=== PATIENT | female | born 1935 | race Caucasian/White ===

== ENCOUNTER → 2016-08-12 | Outpatient (CLI) | payer MEDICARE ==
[~2016-08-12] MED LIST: ACHD5005 PO; ALEN70TA47 PO; APIX5TAB PO; ASCO10006 PO; ATEN25TA PO; CHOL10007 PO; CYAN50008 PO; DICL100G18 TP; DILT240C90 PO; ENAL10TA PO; FENO145T2 PO; FLUT16SP22 NSEACH; FOLI0.4T2 PO; GLUC-116 PO; HCT25T PO; LEVO100T PO; LEVO200T30 PO; LVT.025T PO; LYSI500T37 PO; MAGN400T6 PO; METO-274 PO; METO5TAB79 PO; METR500T PO; METR500T21 PO; NF-ESOM40C PO; OMEP40CA36 PO; OXYC-12 PO; PEG250PW PO; PERP1TAB3 PO; RNT150T PO; SCR1T1 PO; SIMV20TA3 PO; SIMV40TA4 PO; VANQUISH PO; VITA400C21 PO; fluticasone PO
--- NOTE | 2016-08-12 15:35 | Diagnostic Imaging Report ---
EXAMINATION: Three views of the lumbar spine. INDICATION: Low back pain. FINDINGS: There is an old compression fracture of L1 vertebral body, status post kyphoplasty changes. No new compression fracture is seen. There is minimal anterior translation of L5 over S1 and minimal posterior translation of L2/3 and L3/4 levels. Multiple anterior osteophytes are seen with no significant posterior osteophytes noted. Sclerotic changes around the facet joints of L5/S1 are likely degenerative. There are degenerative changes also at the SI joints, more prominent on the left side. There is significant disc height loss at multiple levels in the lumbar spine with vacuum phenomenon seen. Surgical clips in the upper right abdomen seen. IMPRESSION: Advanced degenerative changes. Dictated by: Dictated on workstation # [id number]
== END ==
LOC: RAD 14:23
PROVIDERS: ATTEND Nurse Practitioner Family
DX: M47.816 Spondylosis without myelopathy or radiculopathy, lumbar region (principal)
CPT/HCPCS: 72100

== ENCOUNTER 2016-08-15 14:25 | Observation (INO) | payer MEDICARE ==
[~2016-08-15] VITALS: Ht 162.6 cm; Wt 74.1 kg
[~2016-08-15 14:25] MED LIST changes: -ALEN70TA47 PO; -APIX5TAB PO; -ASCO10006 PO; -CHOL10007 PO; -CYAN50008 PO; -DICL100G18 TP; -DILT240C90 PO; -ENAL10TA PO; -FLUT16SP22 NSEACH; -FOLI0.4T2 PO; -GLUC-116 PO; -LEVO100T PO; -LYSI500T37 PO; -METO-274 PO; -METR500T PO; -METR500T21 PO; -OMEP40CA36 PO; -VITA400C21 PO
[2016-08-15] MEDS ORDERED: ALEN70TA47 PO (14:43)
[2016-08-15] MEDS ORDERED: SIMV20TA3 PO (14:43)
[2016-08-15 14:45] LABS: BASOPHILS % (AUTO) 0 % (0-10); EOSINOPHILS % (AUTO) 1 % (0-10); LYMPHOCYTES # (AUTO) 1.5 X 10^3 (1.0-4.0); LYMPHOCYTES % (AUTO) 20 % (12-44); MEAN CORPUSCULAR HEMOGLOBIN 30 PG (25-34); MEAN CORPUSCULAR HGB CONC 35 G/DL (32-36); MEAN CORPUSCULAR VOLUME 88 FL (80-99); MEAN PLATELET VOLUME 9.4 FL (7.4-10.4); MONOCYTES # (AUTO) 0.9 X 10^3 (0.0-1.0); MONOCYTES % (AUTO) 12 % (0-12); NEUTROPHILS # (AUTO) 5.3 X 10^3 (1.8-7.8); NEUTROPHILS % (AUTO) 68 % (42-75); PLATELET COUNT 318 10^3/uL (130-400); RED BLOOD COUNT 4.28 10^6/uL (4.35-5.85); RED CELL DISTRIBUTION WIDTH 14.2 % (10.0-14.5); WHITE BLOOD COUNT 7.8 10^3/uL (4.3-11.0)
--- NOTE | 2016-08-15 14:47 | ED GU-Female ---
General Chief Complaint: Abdominal/GI Problems Stated Complaint: BACK PAIN,ABD PAIN,VOMITING Nursing Triage Note: mid/lower left flank pain x1 week, lower abdominal pain since tuesday. Nursing Sepsis Screen: No Definite Risk Source: patient Exam Limitations: no limitations History of Present Illness Time seen by provider: 14:46 Initial Comments To ER with left flank pain for one week. Starting 2 days ago the pain began to radiate to the left lower quadrant of her abdomen and was associated with nausea , vomiting, urinary frequency and only voiding a small amount. She has chills but no measured fevers. No history of this. Timing/Duration: week, getting worse Severity/Quality: moderate Location: left flank Radiation: none Activities at Onset: none Prior Genitourinary Problems: none Associated Symptoms: dysuria Allergies and Home Medications Allergies Coded Allergies: Sulfa(Sulfonamide Antibiotics) (Verified Adverse Reaction, Mild, 04/14/11) gi symptoms Home Medications Alendronate Sodium 70 Mg Tablet, 1 TAB PO UD, #12 (Reported) Atenolol 25 Mg Tablet, 25 MG PO DAILY, (Reported) Esomeprazole Mag Trihydrate 40 Mg Capsule.dr, 40 MG PO DAILY, (Reported) Hydrochlorothiazide 25 Mg Tablet, 25 MG PO DAILY, (Reported) Levothyroxine Sodium 200 Mcg Tablet, 1 EACH PO DAILY, (Reported) Metoclopramide Hcl 5 Mg Tab, 1 EACH PO AC, (Reported) Perphenazine/Amitriptyline Hcl 1 Each Tablet, 2 EACH PO, (Reported) Polyethylene Glycol 1 Ea Pack, 1 EA PO DAILY, (Reported) Simvastatin 20 Mg Tablet, 1 TAB PO UD, #90 (Reported) Sucralfate 1 Gm Tab, 1 GM PO AC, (Reported) [fluticasone] , 50 MCG PO DAILY, (Reported) Constitutional: see HPI EENTM: see HPI Respiratory: no symptoms reported Cardiovascular: no symptoms reported Genitourinary: see HPI, flank pain Musculoskeletal: no symptoms reported Skin: no symptoms reported Psychiatric/Neurological: No Symptoms Reported Endocrine: No Symptoms Reported Past Cztpobl-Milpyo-Jszluo Hx Patient Social History Alcohol Use: Denies Use Recreational Drug Use: No Smoking Status: Never a Smoker 2nd Hand Smoke Exposure: No Recent Foreign Travel: No Contact w/Someone Who Travel: No Recent Infectious Disease Expo: No Recent Hopitalizations: Yes Immunizations Up To Date Date of Pneumonia Vaccine: Feb 07, 2005 Date of Influenza Vaccine: Feb 21, 2011 Seasonal Allergies Seasonal Allergies: No Surgeries HX Surgeries: Yes Surgeries: Gallbladder, Hysterectomy Respiratory Hx Respiratory Disorders: No Cardiovascular Hx Cardiac Disorders: Yes Cardiac Disorders: High Cholesterol, Hypertension Neurological Hx Neurological Disorders: No Reproductive System : No Hx Reproductive Disorders: No 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, 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 Genitourinary Hx Genitourinary Disorders: No Genitourinary Disorders: UTI-Chronic Gastrointestinal Hx Gastrointestinal Disorders: Yes Gastrointestinal Disorders: Gastroesophageal Reflux Musculoskeletal Hx Musculoskeletal Disorders: Yes (KYPOPLASTY NOVEMBER 2011 L1) Musculoskeletal Disorders: Arthritis Endocrine Hx Endocrine Disorders: Yes Endocrine Disorders: Hypothyroidsim HEENT HX ENT Disorders: No Cancer Hx Cancer: No Psychosocial Hx Psychiatric Problems: No Integumentary HX Skin/Integumentary Disorder: No Blood Transfusions Hx Blood Disorders: No Physical Exam Vital Signs Vital Sign - Last 12Hours 08/15/16 14:34 Temp 97.9 Pulse 64 Resp 16 B/P (MAP) 172/83 Pulse Ox 98 O2 Delivery Room Air Capillary Refill : Less Than 3 Seconds General Appearance: WD/WN, no apparent distress HEENT: PERRL/EOMI, normal ENT inspection Neck: non-tender, full range of motion Respiratory: no respiratory distress, no accessory muscle use Gastrointestinal: normal bowel sounds, soft, tenderness (left lower quadrant) Extremities: normal range of motion, non-tender Neurologic/Psychiatric: alert, normal mood/affect, oriented x 3 Skin: normal color, warm/dry Progress/Results/Core Measures Results/Orders Lab Results Laboratory Tests Test 08/15/16 14:30 08/15/16 15:05 Range/Units White Blood Count 7.8 4.3-11.0 10^3/uL Red Blood Count 4.28 L 4.35-5.85 10^6/uL Hemoglobin 13.0 11.5-16.0 G/DL Hematocrit 38 35-52 % Mean Corpuscular Volume 88 80-99 FL Mean Corpuscular Hemoglobin 30 25-34 PG Mean Corpuscular Hemoglobin Concent 35 32-36 G/DL Red Cell Distribution Width 14.2 10.0-14.5 % Platelet Count 318 130-400 10^3/uL Mean Platelet Volume 9.4 7.4-10.4 FL Neutrophils (%) (Auto) 68 42-75 % Lymphocytes (%) (Auto) 20 12-44 % Monocytes (%) (Auto) 12 0-12 % Eosinophils (%) (Auto) 1 0-10 % Basophils (%) (Auto) 0 0-10 % Neutrophils # (Auto) 5.3 1.8-7.8 X 10^3 Lymphocytes # (Auto) 1.5 1.0-4.0 X 10^3 Monocytes # (Auto) 0.9 0.0-1.0 X 10^3 Eosinophils # (Auto) 0.0 0.0-0.3 10^3/uL Basophils # (Auto) 0.0 0.0-0.1 10^3/uL Sodium Level 125 *L 135-145 MMOL/L Potassium Level 4.0 3.6-5.0 MMOL/L Chloride Level 92 L 98-107 MMOL/L Carbon Dioxide Level 21 21-32 MMOL/L Anion Gap 12 5-14 MMOL/L Blood Urea Nitrogen 20 H 7-18 MG/DL Creatinine 0.96 0.60-1.30 MG/DL Estimat Glomerular Filtration Rate 56 BUN/Creatinine Ratio 21 Glucose Level 117 H 70-105 MG/DL Calcium Level 9.3 8.5-10.1 MG/DL Total Bilirubin 0.4 0.1-1.0 MG/DL Aspartate Amino Transf (AST/SGOT) 20 5-34 U/L Alanine Aminotransferase (ALT/SGPT) 10 0-55 U/L Alkaline Phosphatase 33 L 40-136 U/L Total Protein 7.0 6.4-8.2 G/DL Albumin 3.7 3.2-4.5 G/DL Urine Color YELLOW Urine Clarity CLEAR Urine pH 6 5-9 Urine Specific [place] 1.015 L 1.016-1.022 Urine Protein NEGATIVE NEGATIVE Urine Glucose (UA) NEGATIVE NEGATIVE Urine Ketones NEGATIVE NEGATIVE Urine Nitrite NEGATIVE NEGATIVE Urine Bilirubin NEGATIVE NEGATIVE Urine Urobilinogen NORMAL NORMAL MG/DL Urine Leukocyte Esterase 3+ H NEGATIVE Urine RBC (Auto) NEGATIVE NEGATIVE Urine RBC NONE /HPF Urine WBC 10-25 H /HPF Urine Squamous Epithelial Cells RARE /HPF Urine Crystals NONE /LPF Urine Bacteria TRACE /HPF Urine Casts NONE /LPF Urine Mucus NEGATIVE /LPF Urine Culture Indicated YES My Orders Orders - 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 Cbc With Automated Diff (08/15/16 14:40) Comprehensive Metabolic Panel (08/15/16 14:40) Ua Culture If Indicated (08/15/16 14:40) Saline Lock/Iv-Start (08/15/16 14:40) Ct Abd/Pelvis Wo(Kidney Stone) (08/15/16 14:40) Urine Culture (08/15/16 15:05) Vital Signs/I&O Vital Sign - Last 12Hours 08/15/16 14:34 Temp 97.9 Pulse 64 Resp 16 B/P (MAP) 172/83 Pulse Ox 98 O2 Delivery Room Air Blood Pressure Mean: 112 Diagnostic Imaging Diagonstic Imaging: Xray Comments NAME: [facility] REC#: [id number] PT STATUS: REG ER : 1935 PHYSICIAN: MARTINE COSTELLO APRN ADMIT DATE: 08/15/16/ER Draft Date of Exam:08/15/16 CT ABD/PELVIS WO(KIDNEY STONE) PROCEDURE: CT urinary tract, rule out kidney stone. TECHNIQUE: Multiple contiguous axial images were obtained through the abdomen and pelvis without the use of intravenous contrast. INDICATION: Left flank pain with vomiting. COMPARISON: 12/27/2011. FINDINGS: The lung bases are clear. The kidneys show no evidence of hydronephrosis. There are no renal calculi. Renal outlines are smooth. No perinephric fluid present. Liver appears normal. Gallbladder is absent. Bile ducts are not dilated. Pancreas is normal is atrophic. Spleen shows a few granulomatous changes, otherwise normal. The adrenal glands are not enlarged. The aorta is atherosclerotic without evidence of aneurysm. The stomach is not distended. The small bowel appears normal. Colon shows normal stool and gas pattern. There are few diverticula in the sigmoid colon though there is no evidence of diverticulitis. The appendix is not identified though no evidence of pericecal edema. There are no pelvic masses. Uterus is absent. Bladder appears normal. No intra-abdominal adenopathy. IMPRESSION: 1. Kidneys appear normal without obstruction or calculi. 2. Diverticulosis of the sigmoid colon without evidence of diverticulitis. 3. No acute intra-abdominal findings demonstrated. Dictated on workstation # [id number] Dict: 08/15/16 1459 Trans: 08/15/16 1508 [id number] Interpreted by: DEXTER LEBLANC MD Electronically signed by: Departure Communication Time/Spoke to Admitting Phy: 15:28 Communication I discussed case with Dr. Dr. Higuera. We will admit the patient, fluid restriction to milliliters daily, hold her HCTZ, IV normal saline and Rocephin and repeat basic metabolic in the morning. Impression Impression: Primary Impression: Hyponatremia Additional Impressions: Nausea alone Urinary tract infection Disposition: ADMITTED INPATIENT Condition: Stable Decision to Admit Reason: Admit from ER (General) Decision to Admit/Date: Aug 15, 2016 Time/Decision to Admit Time: 15:14 Departure-Patient Inst. Referrals: LUKE TANG MD (PCP/Family) Primary Care Physician Copy Copies To 1: LUKE TANG MD, PETER J APRN Aug 15, 2016 14:47
[2016-08-15 15:03] LABS: CREATININE SERUM 0.96 MG/DL (0.60-1.30)
[2016-08-15 15:04] LABS: ALBUMIN 3.7 G/DL (3.2-4.5); BILIRUBIN,TOTAL 0.4 MG/DL (0.1-1.0); CALCIUM 9.3 MG/DL (8.5-10.1)
--- NOTE | 2016-08-15 15:09 | Diagnostic Imaging Report ---
PROCEDURE: CT urinary tract, rule out kidney stone. TECHNIQUE: Multiple contiguous axial images were obtained through the abdomen and pelvis without the use of intravenous contrast. INDICATION: Left flank pain with vomiting. COMPARISON: 12/27/2011. FINDINGS: The lung bases are clear. The kidneys show no evidence of hydronephrosis. There are no renal calculi. Renal outlines are smooth. No perinephric fluid present. Liver appears normal. Gallbladder is absent. Bile ducts are not dilated. Pancreas is normal is atrophic. Spleen shows a few granulomatous changes, otherwise normal. The adrenal glands are not enlarged. The aorta is atherosclerotic without evidence of aneurysm. The stomach is not distended. The small bowel appears normal. Colon shows normal stool and gas pattern. There are few diverticula in the sigmoid colon though there is no evidence of diverticulitis. The appendix is not identified though no evidence of pericecal edema. There are no pelvic masses. Uterus is absent. Bladder appears normal. No intra-abdominal adenopathy. IMPRESSION: 1. Kidneys appear normal without obstruction or calculi. 2. Diverticulosis of the sigmoid colon without evidence of diverticulitis. 3. No acute intra-abdominal findings demonstrated. Dictated by: Dictated on workstation # [id number]
[2016-08-15 15:11] LABS: BILIRUBIN,URINE NEGATIVE (NEGATIVE); KETONES,URINE NEGATIVE (NEGATIVE); LEUKOCYTE ESTERASE ,URINE 3+ (NEGATIVE); NITRITE,URINE NEGATIVE (NEGATIVE); PH,URINE 6 (5-9); PROTEIN,URINE NEGATIVE (NEGATIVE); UROBILINOGEN,URINE NORMAL (NORMAL)
[2016-08-15 15:24] LABS: SQUAMOUS EPITHELIAL CELL,UR RARE /HPF
[2016-08-15 16:18] VITALS: BP 175/72
[2016-08-15] MEDS ORDERED: KETOROLAC 15 MG/ML VIAL ONE (16:37)
[2016-08-15] MEDS ORDERED: NS IV 1000 ML 1,000 ML ONE (16:37)
[2016-08-15] MEDS ORDERED: CATHETER FLUSH 10 ML SYR IV PRN (16:45)
[2016-08-15] MEDS ORDERED: ONDANSETRON 4 MG/2 ML (SDV) Z0FRAN IV PRN (16:45)
[2016-08-15] MEDS: KETOROLAC 15 MG/ML VIAL IV PRN (16:46)
[2016-08-15] MEDS: NS IV 1000 ML 1,000 ML IV SCH (16:46)
[2016-08-15] MEDS ORDERED: cefTRIAXone 1 GM/NS 50 ML IVPB IV SCH ×2 (17:00)
[2016-08-15] MEDS ORDERED: LEVO100T PO (17:01)
[2016-08-15] MEDS ORDERED: FENO145T2 PO (17:10)
[2016-08-15] MEDS ORDERED: ENAL10TA PO (17:10)
[2016-08-15] MEDS ORDERED: OMEP40CA36 PO (17:10)
[2016-08-15] MEDS ORDERED: DICL100G18 TP (17:10)
[2016-08-15] MEDS ORDERED: ASCO10006 PO (17:12)
[2016-08-15] MEDS ORDERED: CHOL10007 PO (17:12)
[2016-08-15] MEDS ORDERED: FOLI0.4T2 PO (17:21)
[2016-08-15] MEDS ORDERED: GLUC-116 PO (17:21)
[2016-08-15] MEDS ORDERED: VITA400C21 PO (17:21)
[2016-08-15] MEDS ORDERED: CYAN50008 PO (17:21)
[2016-08-15] MEDS ORDERED: LYSI500T37 PO (17:27)
[2016-08-15 19:10] VITALS: BP 142/74
[2016-08-15] MEDS ORDERED: ACETAMINOPHEN 500 MG TAB (TYLENOL) PO PRN (21:45)
[2016-08-16 00:05] VITALS: BP 157/72
[2016-08-16 04:00] VITALS: BP 167/66
[2016-08-16 05:02] LABS: BASOPHILS % (AUTO) 0 % (0-10); EOSINOPHILS # (AUTO) 0.1 10^3/uL (0.0-0.3); EOSINOPHILS % (AUTO) 2 % (0-10); LYMPHOCYTES # (AUTO) 1.7 X 10^3 (1.0-4.0); LYMPHOCYTES % (AUTO) 25 % (12-44); MEAN CORPUSCULAR HEMOGLOBIN 30 PG (25-34); MEAN CORPUSCULAR HGB CONC 34 G/DL (32-36); MEAN CORPUSCULAR VOLUME 88 FL (80-99); MEAN PLATELET VOLUME 9.8 FL (7.4-10.4); MONOCYTES % (AUTO) 15 % (0-12); NEUTROPHILS # (AUTO) 3.9 X 10^3 (1.8-7.8); NEUTROPHILS % (AUTO) 58 % (42-75); PLATELET COUNT 296 10^3/uL (130-400); RED BLOOD COUNT 3.75 10^6/uL (4.35-5.85); WHITE BLOOD COUNT 6.7 10^3/uL (4.3-11.0)
[2016-08-16 05:22] LABS: ANION GAP 10 MMOL/L (5-14); BLOOD UREA NITROGEN 21 MG/DL (7-18); BUN/CREATININE RATIO 24; CALCIUM 8.2 MG/DL (8.5-10.1); CARBON DIOXIDE 22 MMOL/L (21-32); CHLORIDE 95 MMOL/L (98-107); CREATININE SERUM 0.88 MG/DL (0.60-1.30); GFR ESTIMATED > 60; GLUCOSE 93 MG/DL (70-105); POTASSIUM 3.4 MMOL/L (3.6-5.0); SODIUM 127 MMOL/L (135-145)
[2016-08-16] MEDS: NS IV 1000 ML 1,000 ML IV SCH (06:01)
[2016-08-16] MEDS: KETOROLAC 15 MG/ML VIAL IV PRN (06:01)
[2016-08-16 07:26] VITALS: BP 180/81
--- NOTE | 2016-08-16 08:58 | Short Stay Summary ---
History of Present Illness History of Present Illness Reason for visit/HPI PT IS A 80 Y/O FEMALE WHO IS KNOWN TO ME FROM CLINIC. SHE STATES THAT SHE IS FEELING QUITE A BIT BETTER TODAY. SHE REPORTS THAT ON TUESDAY SHE HAD LOWER BACK/HIP PAIN, RECEIVED A SHOT AND DID NOT REALLY IMPROVE MUCH, SHE THEN HAD PAIN THAT STARTED IN HER LOWER LEFT ABDOMEN AND THEN THE PAIN BECAME INTENSE ENOUGH THAT SHE WAS CONCERNED IT WAS A KIDNEY STONE. SHE REPORTS THAT SHE HAS BEEN HAVING THE PAIN INTERMITTENTLY. SHE REPORTS THAT SHE HAS BEEN TOLD IN THE PAST THAT SHE HAS DIVERTICULOSIS AND MANY YEARS AGO HAD DIVERTICULITIS. HER ADMITS THAT THEY EAT QUITE A BIT OF POPCORN, STRAWBERRIES, TOMATOES , NUTS. Date of Admission Aug 15, 2016 at 15:42 Date of Discharge Attending Physician Luke Cabrera MD Admitting Physician Luke Cabrera MD Consult Allergies and Home Medications Allergies Coded Allergies: Sulfa (Sulfonamide Antibiotics) (Verified Adverse Reaction, Mild, RASH, ) Home Medications Alendronate Sodium 70 Mg Tablet, 1 TAB PO UD, #12 (Reported) Ascorbic Acid 1,000 Mg Tablet, 1,000 MG PO DAILY, (Reported) Atenolol 25 Mg Tablet, 25 MG PO DAILY, (Reported) Cholecalciferol (Vitamin D3) 1,000 Unit Capsule, 1,000 UNIT PO DAILY, (Reported) Cyanocobalamin (Vitamin B-12) 5,000 Mcg Tab.rapdis, 5,000 MCG PO DAILY, ( Reported) Diclofenac Sodium 100 Gm Gel..gram., 4 GM TP QID, (Reported) Enalapril Maleate 10 Mg Tablet, 10 MG PO DAILY, #90 (Reported) Fenofibrate Nanocrystallized 145 Mg Tablet, 145 MG PO DAILY, (Reported) Folic Acid 0.4 Mg Tablet, 0.4 MG PO DAILY, (Reported) Gluc/Renny-MSM#2/C/D3/Ruben/Born 1 Each Tablet, 1 EACH PO DAILY, (Reported) Hydrochlorothiazide 25 Mg Tablet, 25 MG PO DAILY, (Reported) Levothyroxine Sodium 100 Mcg Tablet, 100 MCG PO DAILY, (Reported) Lysine HCl 500 Mg Tablet, 1,000 MG PO DAILY, (Reported) Omeprazole 40 Mg Capsule.dr, 40 MG PO DAILY, #90 (Reported) Perphenazine/Amitriptyline Hcl 1 Each Tablet, 2 EACH PO, (Reported) Simvastatin 20 Mg Tablet, 20 MG PO DAILY, #90 (Reported) Sucralfate 1 Gm Tab, 1 GM PO AC, (Reported) Vitamin E 400 Unit Capsule, 400 UNIT PO DAILY, (Reported) [fluticasone] , 50 MCG PO DAILY, (Reported) Past Rfrxfxt-Jracid-Hvbdqx Hx Patient Social History Marrital Status: Living Status: LIVES AT HOME WITH SPOUSE Employed/Student: retired Alcohol Use: Denies Use Recreational Drug Use: No Smoking Status: Current Everyday Smoker Type Used: Cigarettes 2nd Hand Smoke Exposure: No Physical Abuse Screen: No Sexual Abuse: No Recent Foreign Travel: No Contact w/other who traveled: No Recent Hopitalizations: No Recent Infectious Disease Expo: No Immunizations Up To Date Date of Pneumonia Vaccine: Feb 07, 2005 Date of Influenza Vaccine: Jan 28, 2016 Seasonal Allergies Seasonal Allergies: No Surgeries HX Surgeries: Yes Surgeries: Gallbladder, Hysterectomy Respiratory Hx Respiratory Disorders: No Cardiovascular Hx Cardiovascular Disorders: Yes Cardiac Disorders: High Cholesterol, Hypertension Neurological Hx Neurological Disorders: No Reproductive System : No Hx Reproductive Disorders: No Female Reproductive Disorders: Denies 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 Genitourinary Hx Genitourinary Disorders: No Genitourinary Disorders: UTI-Chronic Gastrointestinal Hx Gastrointestinal Disorders: Yes Gastrointestinal Disorders: Gastroesophageal Reflux, Ulcer Musculoskeletal Hx Musculoskeletal Disorders: Yes (KYPOPLASTY NOVEMBER 2011 L1) Musculoskeletal Disorders: Arthritis Endocrine Hx Endocrine Disorders: Yes Endocrine Disorders: Hypothyroidsim HEENT HX ENT Disorders: No Cancer Hx Cancer: No Psychosocial Hx Psychiatric Problems: No Integumentary HX Skin/Integumentary Disorder: No Blood Transfusions Hx Blood Disorders: No Reviewed Nursing Assessment Reviewed/Agree w Nursing PMH: Yes Family Medical History Significant Family History: Heart Disease, Hypertension Family Hx: Cardiovascular disease 19 FATHER 19 MOTHER G8 BROTHER Hypertension 19 FATHER G8 BROTHER Constitutional: No chills, No diaphoresis, No fever, No malaise, No weakness EENTM: No hoarseness, No mouth pain, No throat pain, No throat swelling Respiratory: No cough, No dyspnea on exertion, No short of breath Cardiovascular: No chest pain, No palpitations Gastrointestinal: abdominal pain (LLQ) Genitourinary: No dysuria Musculoskeletal: back pain (LEFT SACROILIAC REGION) Skin: No change in color, No lesions Psychiatric/Neurological: Denies Anxiety, Denies Depressed All Other Systems Reviewed Negative Unless Noted: Yes Physical Exam Vital Signs Vital Sign - Last 12Hours 08/15/16 14:34 Temp 97.9 Pulse 64 Resp 16 B/P (MAP) 172/83 Pulse Ox 98 O2 Delivery Room Air Capillary Refill : Less Than 3 Seconds General Appearance: No Apparent Distress, WD/WN Eyes: Bilateral Eye EOMI, Bilateral Eye Normal Inspection, Bilateral Eye PERRL HEENT: PERRL/EOMI, Pharynx Normal Neck: Full Range of Motion, Normal Inspection, Non Tender, Supple, Carotid Bruit Respiratory: Chest Non Tender, Lungs Clear, Normal Breath Sounds, No Accessory Muscle Use Cardiovascular: Regular Rate, Rhythm, No Edema Gastrointestinal: Normal Bowel Sounds, Soft, Tenderness (LLQ - MILDLY TENDER) Rectal: Deferred Extremity: Normal Capillary Refill, Normal Inspection, Normal Range of Motion, Non Tender, No Calf Tenderness, No Pedal Edema Neurologic/Psychiatric: Alert, Oriented x3, No Motor/Sensory Deficits, Normal Mood/Affect, digital marketing manager II-XII Norm as Tested Skin: Normal Color, Warm/Dry Lymphatic: No Adenopathy Clinical Quality Measures DVT/VTE Risk/Contraindication: VTE Present on Admission: No Risk Factor Score Per Nursin RFS Level Per Nursing on Admit: 4+=Very High Contraindications-Pharm: Other *list below* Contraindications-Mechi: Other *list below* Other: PLANNING DISCHARGE TO HOME TODAY - DOES NOT NEED VTE FOR 8 HOURS Short Stay Diagnosis Discharge Diagnosis-Short Stay Admission Diagnosis: CHRONIC LOW GRADE DIVERTICULITIS ABDOMINAL PAIN HYPERTENSION HYPONATREMIA Final Discharge Diagnosis: CHRONIC LOW GRADE DIVERTICULITIS ABDOMINAL PAIN HYPERTENSION HYPONATREMIA Conclusion Labs Laboratory Tests 08/15/16 14:30: White Blood Count 7.8, Red Blood Count 4.28L, Hemoglobin 13.0, Hematocrit 38, Mean Corpuscular Volume 88, Mean Corpuscular Hemoglobin 30, Mean Corpuscular Hemoglobin Concent 35, Red Cell Distribution Width 14.2, Platelet Count 318, Mean Platelet Volume 9.4, Neutrophils (%) (Auto) 68, Lymphocytes (%) (Auto) 20, Monocytes (%) (Auto) 12, Eosinophils (%) (Auto) 1, Basophils (%) (Auto) 0, Neutrophils # (Auto) 5.3, Lymphocytes # (Auto) 1.5, Monocytes # (Auto) 0.9, Eosinophils # (Auto) 0.0, Basophils # (Auto) 0.0, Sodium Level 125*L, Potassium Level 4.0, Chloride Level 92L, Carbon Dioxide Level 21, Anion Gap 12, Blood Urea Nitrogen 20H, Creatinine 0.96, Estimat Glomerular Filtration Rate 56, BUN/ Creatinine Ratio 21, Glucose Level 117H, Calcium Level 9.3, Total Bilirubin 0.4 , Aspartate Amino Transf (AST/SGOT) 20, Alanine Aminotransferase (ALT/SGPT) 10, Alkaline Phosphatase 33L, Total Protein 7.0, Albumin 3.7 08/15/16 15:05: Urine Color YELLOW, Urine Clarity CLEAR, Urine pH 6, Urine Specific [place] 1.015L, Urine Protein NEGATIVE, Urine Glucose (UA) NEGATIVE, Urine Ketones NEGATIVE, Urine Nitrite NEGATIVE, Urine Bilirubin NEGATIVE, Urine Urobilinogen NORMAL, Urine Leukocyte Esterase 3+H, Urine RBC (Auto) NEGATIVE, Urine RBC NONE , Urine WBC 10-25H, Urine Squamous Epithelial Cells RARE, Urine Crystals NONE, Urine Bacteria TRACE, Urine Casts NONE, Urine Mucus NEGATIVE, Urine Culture Indicated YES 08/16/16 04:10: White Blood Count 6.7, Red Blood Count 3.75L, Hemoglobin 11.2L, Hematocrit 33L, Mean Corpuscular Volume 88, Mean Corpuscular Hemoglobin 30, Mean Corpuscular Hemoglobin Concent 34, Red Cell Distribution Width 14.0, Platelet Count 296, Mean Platelet Volume 9.8, Neutrophils (%) (Auto) 58, Lymphocytes (%) (Auto) 25, Monocytes (%) (Auto) 15H, Eosinophils (%) (Auto) 2, Basophils (%) (Auto) 0, Neutrophils # (Auto) 3.9, Lymphocytes # (Auto) 1.7, Monocytes # (Auto) 1.0, Eosinophils # (Auto) 0.1, Basophils # (Auto) 0.0, Sodium Level 127L, Potassium Level 3.4L, Chloride Level 95L, Carbon Dioxide Level 22, Anion Gap 10, Blood Urea Nitrogen 21H, Creatinine 0.88, Estimat Glomerular Filtration Rate > 60, BUN /Creatinine Ratio 24, Glucose Level 93, Calcium Level 8.2L Conclusion/Plan CHRONIC LOW GRADE DIVERTICULITIS - START ON FLAGYL 500MG TWO DOSES IV IN THE HOSPITAL AND START ANOTHER WEEK OF FLAGYL ORALLY OUTPATIENT. MONITOR SYMPTOMS, AVOID FOOD TRIGGERS - CORN, PEAS, POPCORN, NUTS, SEEDS. ABDOMINAL PAIN - IMPROVED - HYPERTENSION - RESTART HOME MEDICATIONS - GIVE DOSE IN HOSPITAL TODAY. HYPONATREMIA - IMPROVED SLIGHTLY - WILL CONTINUE WITH SUPPORT OF SODIUM WITH GATORADE OUTPATIENT. CHECK LABS IN 1 WEEK OUTPATIENT. LUKE CABRERA MD Aug 16, 2016 08:58
[2016-08-16] MEDS ORDERED: METR500T PO (09:13)
[2016-08-16] MEDS ORDERED: metroNIDAZOLE 500MG/100ML IVPB 100 ML IV NR ×2 (09:14→14:30)
[2016-08-16] MEDS ORDERED: ENALAPRIL 10 MG (VASOTEC) TAB PO SCH (09:15)
[2016-08-16] MEDS ORDERED: KCL 20 MEQ TAB (K-DUR) PO NR (09:15)
[2016-08-16] MEDS ORDERED: ATENOLOL 25 MG (TENORMIN) TAB PO SCH (09:15)
--- NOTE | 2016-08-16 09:16 | Discharge Inst-Complex ---
PDI Med Rec & Follow Up Appt. New Medications: Metronidazole (Flagyl) 500 Mg Tablet 500 MG PO TID, #21 TAB Continued Medications: Alendronate Sodium (Alendronate Sodium) 70 Mg Tablet 1 TAB PO UD, #12 Ascorbic Acid (Vitamin C) 1,000 Mg Tablet 1000 MG PO DAILY, TAB Atenolol (Tenormin 25 Mg) 25 Mg Tablet 25 MG PO DAILY Cholecalciferol (Vitamin D3) (Vitamin D3) 1,000 Unit Capsule 1000 UNIT PO DAILY, CAP Cyanocobalamin (Vitamin B-12) (Vitamin B12) 5,000 Mcg Tab.rapdis 5000 MCG PO DAILY, TAB Diclofenac Sodium (Voltaren) 100 Gm Gel..gram. 4 GM TP QID, TUBE Enalapril Maleate (Enalapril Maleate) 10 Mg Tablet 10 MG PO DAILY, #90 Fenofibrate Nanocrystallized (Tricor) 145 Mg Tablet 145 MG PO DAILY, TAB Folic Acid (Folic Acid) 0.4 Mg Tablet 0.4 MG PO DAILY, TAB Gluc/Renny-MSM#2/C/D3/Ruben/Born (Vnsbbzssmg-Myzzvynmnho-HVS Tab) 1 Each Tablet 1 EACH PO DAILY, TAB Levothyroxine Sodium (Synthroid) 100 Mcg Tablet 100 MCG PO DAILY, TAB Lysine HCl (l-Lysine) 500 Mg Tablet 1000 MG PO DAILY, TAB Omeprazole (Omeprazole) 40 Mg Capsule.dr 40 MG PO DAILY, #90 Perphenazine/Amitriptyline Hcl (Perphen-Amitrip 2 Mg-10 Mg Tab) 1 Each Tablet 2 EACH PO Simvastatin (Simvastatin) 20 Mg Tablet 20 MG PO DAILY, #90 Sucralfate (Carafate) 1 Gm Tab 1 GM PO AC Vitamin E (Vitamin E) 400 Unit Capsule 400 UNIT PO DAILY, CAP [fluticasone] () 50 MCG PO DAILY Discontinued Medications: Hydrochlorothiazide (Hydrochlorothiazide) 25 Mg Tablet 25 MG PO DAILY Prescription: Transmitted to Pharmacy ([facility]) Activity, Diet and PDI Resume Normal Activity: Yes Discharge Diet: Regular Diet Diet for 24 Hours: No Alcohol Diet After 24 Hours: Clear Liquid if Nauseous Drink 6-8 Glasses of Fluid/Day: Yes Driving Instructions: You May Drive Return to The Hospital For: ANY CONCERN FOR WORSENING SYMPTOMS OF ABDOMINAL PAIN, NAUSEA, EMESIS Symptoms to Reoprt to : Appetite Changes, Fever Over 101 Degrees F, Diarrhea (Persistant), Shortness of Breath For Problems or Questions: Contact Your Physician, Go to Emergency Room LUKE TANG MD Aug 16, 2016 09:16
[2016-08-16 12:39] VITALS: BP 148/78
[2016-08-16 15:30] VITALS: BP 148/78
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
== END 2016-08-16 09:14 | disposition home or self-care (01) ==
LOC: DELPENDDIS → EDUNIT# 14:25 → ER 14:27 → 4TH 15:42 → UNDOADMOB 15:42 → 4TH 16:18 → UNDODISOB 08-16 15:30
PROVIDERS: ADMIT Family Medicine; ATTEND Family Medicine
DX: K57.32 Diverticulitis of large intestine without perforation or abscess without bleeding (principal); E87.1 Hypo-osmolality and hyponatremia; N39.0 Urinary tract infection, site not specified; I10 Essential (primary) hypertension; K21.9 Gastro-esophageal reflux disease without esophagitis; E03.9 Hypothyroidism, unspecified; F17.210 Nicotine dependence, cigarettes, uncomplicated
CPT/HCPCS: 36415; 74176; 80048; 80053; 81000; 85025; 87088; G0378

== ENCOUNTER 2016-08-22 23:44 | Inpatient (IN) | payer MEDICARE ==
[~2016-08-22] VITALS: Ht 162.6 cm; Wt 74.9 kg
[~2016-08-22 23:44] MED LIST changes: +ALEN70TA47 PO; +ASCO10006 PO; +CHOL10007 PO; +CYAN50008 PO; +DICL100G18 TP; +ENAL10TA PO; +FOLI0.4T2 PO; +GLUC-116 PO; +LEVO100T PO; +LYSI500T37 PO; +METR500T PO; +OMEP40CA36 PO; +VITA400C21 PO
[2016-08-22] MEDS ORDERED: DILTIAZEM 25 MG/5 ML INJ (CARDIZEM) VIAL ONE (23:51)
[2016-08-22] MEDS ORDERED: DILTIAZEM 100 MG/VIAL (CARDIZEM) ADD-VANTAGE IV ONE (23:52)
[2016-08-22] MEDS ORDERED: NS IV 1000 ML 1,000 ML IV ONE (23:52)
[2016-08-22] MEDS ORDERED: SODIUM CHLORIDE (ADD-VANTAGE) 100 ML IV ONE (23:52)
[2016-08-22 23:58] LABS: BASOPHILS # (AUTO) 0.1 10^3/uL (0.0-0.1); BASOPHILS % (AUTO) 1 % (0-10); EOSINOPHILS # (AUTO) 0.3 10^3/uL (0.0-0.3); EOSINOPHILS % (AUTO) 3 % (0-10); LYMPHOCYTES # (AUTO) 2.9 X 10^3 (1.0-4.0); LYMPHOCYTES % (AUTO) 28 % (12-44); MEAN CORPUSCULAR HEMOGLOBIN 31 PG (25-34); MEAN CORPUSCULAR HGB CONC 35 G/DL (32-36); MEAN CORPUSCULAR VOLUME 89 FL (80-99); MEAN PLATELET VOLUME 9.2 FL (7.4-10.4); MONOCYTES # (AUTO) 1.5 X 10^3 (0.0-1.0); MONOCYTES % (AUTO) 14 % (0-12); NEUTROPHILS # (AUTO) 5.4 X 10^3 (1.8-7.8); NEUTROPHILS % (AUTO) 54 % (42-75); PLATELET COUNT 365 10^3/uL (130-400); RED BLOOD COUNT 4.24 10^6/uL (4.35-5.85); RED CELL DISTRIBUTION WIDTH 14.9 % (10.0-14.5); WHITE BLOOD COUNT 10.1 10^3/uL (4.3-11.0)
[2016-08-23] VITALS (21 sets, daily range): BP systolic 101–141; BP diastolic 58–89
[2016-08-23] MEDS ORDERED: DILTIAZEM 25 MG/5 ML INJ (CARDIZEM) VIAL IVP ONE
[2016-08-23] MEDS ORDERED: DILTIAZEM DRIP 100 MG in SODIUM CHLORIDE (ADD-VANTAGE) 100 ML IV SCH ×2
[2016-08-23 01:26] LABS: ALANINE AMINOTRANSFERASE 10 U/L (0-55); ALBUMIN 3.4 G/DL (3.2-4.5); ANION GAP 11 MMOL/L (5-14); ASPARTATE AMINO TRANSFERASE 16 U/L (5-34); BILIRUBIN,TOTAL 0.3 MG/DL (0.1-1.0); BLOOD UREA NITROGEN 16 MG/DL (7-18); BUN/CREATININE RATIO 17; CALCIUM 9.4 MG/DL (8.5-10.1); CARBON DIOXIDE 22 MMOL/L (21-32); CHLORIDE 98 MMOL/L (98-107); CREATININE SERUM 0.92 MG/DL (0.60-1.30); GFR ESTIMATED 59; GLUCOSE 115 MG/DL (70-105); MAGNESIUM 1.4 MG/DL (1.8-2.4); POTASSIUM 3.9 MMOL/L (3.6-5.0); SODIUM 131 MMOL/L (135-145); TOTAL PROTEIN 6.3 G/DL (6.4-8.2)
[2016-08-23 01:33] LABS: MYOGLOBIN SERUM 45.2 NG/ML (10.0-92.0)
[2016-08-23] MEDS ORDERED: MAGNESIUM 1 GM/100 ML IVPB 100 ML IV ONE (01:45)
[2016-08-23] MEDS ORDERED: APIXABAN 5 MG (ELIQUIS) TABLET PO ONE (02:00)
--- NOTE | 2016-08-23 02:01 | ED Chest Pain ---
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 REPORTS PAIN WOKE HER FROM HER SLEEP, FELT LIKE HER HEART WAS POUNDING. Nursing Sepsis Screen: No Definite Risk Source: patient Exam Limitations: no limitations History of Present Illness Time seen by provider: 23:47 Initial Comments This 80-year-old lady presents to the emergency room via EMS from home where she woke with chest pain and palpitations. She has associated headache and dyspnea. She appears anxious. She has obvious atrial fibrillation with rapid ventricular rate in the 160s on arrival. Patient's primary care doctor is Dr. Cabrera and her chicken cutter is Dr. Hanna in [place]. Patient notes she was recently admitted to this facility for diverticulitis, hyponatremia, and abdominal pain. Allergies and Home Medications Allergies Coded Allergies: Sulfa (Sulfonamide Antibiotics) (Verified Adverse Reaction, Mild, RASH, ) Home Medications Alendronate Sodium 70 Mg Tablet, 1 TAB PO UD, #12 (Reported) Ascorbic Acid 1,000 Mg Tablet, 1,000 MG PO DAILY, (Reported) Atenolol 25 Mg Tablet, 25 MG PO DAILY, (Reported) Cholecalciferol (Vitamin D3) 1,000 Unit Capsule, 1,000 UNIT PO DAILY, (Reported) Cyanocobalamin (Vitamin B-12) 5,000 Mcg Tab.rapdis, 5,000 MCG PO DAILY, ( Reported) Diclofenac Sodium 100 Gm Gel..gram., 4 GM TP QID, (Reported) Enalapril Maleate 10 Mg Tablet, 10 MG PO DAILY, #90 (Reported) Fenofibrate Nanocrystallized 145 Mg Tablet, 145 MG PO DAILY, (Reported) Folic Acid 0.4 Mg Tablet, 0.4 MG PO DAILY, (Reported) Gluc/Renny-MSM#2/C/D3/Ruben/Born 1 Each Tablet, 1 EACH PO DAILY, (Reported) Levothyroxine Sodium 100 Mcg Tablet, 100 MCG PO DAILY, (Reported) Lysine HCl 500 Mg Tablet, 1,000 MG PO DAILY, (Reported) Metronidazole 500 Mg Tablet, 500 MG PO TID, #21 Prescribed by: LUKE CABRERA on 08/16/16 0913 Omeprazole 40 Mg Capsule.dr, 40 MG PO DAILY, #90 (Reported) Perphenazine/Amitriptyline Hcl 1 Each Tablet, 2 EACH PO, (Reported) Simvastatin 20 Mg Tablet, 20 MG PO DAILY, #90 (Reported) Sucralfate 1 Gm Tab, 1 GM PO AC, (Reported) Vitamin E 400 Unit Capsule, 400 UNIT PO DAILY, (Reported) [fluticasone] , 50 MCG PO DAILY, (Reported) Review of Systems Constitutional: no symptoms reported EENTM: No Symptoms Reported Respiratory: See HPI Cardiovascular: See HPI Gastrointestinal: No Symptoms Reported Genitourinary: No Symptoms Reported Musculoskeletal: no symptoms reported Skin: no symptoms reported Psychiatric/Neurological: No Symptoms Reported Endocrine: No Symptoms Reported Past Hibptci-Cnvyof-Akctsw Hx Patient Social History Alcohol Use: Denies Use Recreational Drug Use: No Smoking Status: Current Everyday Smoker Type Used: Cigarettes 2nd Hand Smoke Exposure: No Recent Foreign Travel: No Contact w/Someone Who Travel: No Recent Infectious Disease Expo: No Recent Hopitalizations: No Immunizations Up To Date Tetanus Booster (TDap): Unknown Date of Pneumonia Vaccine: Feb 07, 2005 Date of Influenza Vaccine: Jan 28, 2016 Seasonal Allergies Seasonal Allergies: No Surgeries HX Surgeries: Yes Surgeries: Gallbladder, Hysterectomy Respiratory Hx Respiratory Disorders: No Cardiovascular Hx Cardiac Disorders: Yes Cardiac Disorders: High Cholesterol, Hypertension Neurological Hx Neurological Disorders: No Reproductive System Hx Reproductive Disorders: No 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, 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 Genitourinary Hx Genitourinary Disorders: No Genitourinary Disorders: UTI-Chronic Gastrointestinal Hx Gastrointestinal Disorders: Yes Gastrointestinal Disorders: Gastroesophageal Reflux, Ulcer Musculoskeletal Hx Musculoskeletal Disorders: Yes (KYPOPLASTY NOVEMBER 2011 L1) Musculoskeletal Disorders: Arthritis Endocrine Hx Endocrine Disorders: Yes Endocrine Disorders: Hypothyroidsim HEENT HX ENT Disorders: No Cancer Hx Cancer: No Psychosocial Hx Psychiatric Problems: No Integumentary HX Skin/Integumentary Disorder: No Blood Transfusions Hx Blood Disorders: No Family Medical History Significant Family History: Heart Disease, Hypertension Family Medial History: Cardiovascular disease 19 FATHER 19 MOTHER G8 BROTHER Hypertension 19 FATHER G8 BROTHER Physical Exam Vital Signs Vital Sign - Last 12Hours Capillary Refill : Less Than 3 Seconds General Appearance: WD/WN, Mild Distress HEENT: PERRL/EOMI, Normal ENT Inspection Neck: Normal Inspection Respiratory: Lungs Clear, Normal Breath Sounds, No Accessory Muscle Use, No Respiratory Distress Cardiovascular: No Edema, No Murmur, Irregularly Irregular, Tachycardia Gastrointestinal: Non Tender, Soft Extremity: Normal Inspection, No Pedal Edema Neurologic/Psychiatric: Alert, Oriented x3, No Motor/Sensory Deficits, dust puller II- XII Norm as Tested, Other (Anxious) Skin: Normal Color, Warm/Dry Progress/Results/Core Measures Results/Orders Lab Results Laboratory Tests Test 08/22/16 01:00 08/22/16 23:52 Range/Units Sodium Level 131 L 135-145 MMOL/L Potassium Level 3.9 3.6-5.0 MMOL/L Chloride Level 98 98-107 MMOL/L Carbon Dioxide Level 22 21-32 MMOL/L Anion Gap 11 5-14 MMOL/L Blood Urea Nitrogen 16 7-18 MG/DL Creatinine 0.92 0.60-1.30 MG/DL Estimat Glomerular Filtration Rate 59 BUN/Creatinine Ratio 17 Glucose Level 115 H 70-105 MG/DL Calcium Level 9.4 8.5-10.1 MG/DL Magnesium Level 1.4 L 1.8-2.4 MG/DL Total Bilirubin 0.3 0.1-1.0 MG/DL Aspartate Amino Transf (AST/SGOT) 16 5-34 U/L Alanine Aminotransferase (ALT/SGPT) 10 0-55 U/L Alkaline Phosphatase 35 L 40-136 U/L Myoglobin 45.2 10.0-92.0 NG/ML Troponin I < 0.30 <0.30 NG/ML Total Protein 6.3 L 6.4-8.2 G/DL Albumin 3.4 3.2-4.5 G/DL White Blood Count 10.1 4.3-11.0 10^3/uL Red Blood Count 4.24 L 4.35-5.85 10^6/uL Hemoglobin 13.0 11.5-16.0 G/DL Hematocrit 38 35-52 % Mean Corpuscular Volume 89 80-99 FL Mean Corpuscular Hemoglobin 31 25-34 PG Mean Corpuscular Hemoglobin Concent 35 32-36 G/DL Red Cell Distribution Width 14.9 H 10.0-14.5 % Platelet Count 365 130-400 10^3/uL Mean Platelet Volume 9.2 7.4-10.4 FL Neutrophils (%) (Auto) 54 42-75 % Lymphocytes (%) (Auto) 28 12-44 % Monocytes (%) (Auto) 14 H 0-12 % Eosinophils (%) (Auto) 3 0-10 % Basophils (%) (Auto) 1 0-10 % Neutrophils # (Auto) 5.4 1.8-7.8 X 10^3 Lymphocytes # (Auto) 2.9 1.0-4.0 X 10^3 Monocytes # (Auto) 1.5 H 0.0-1.0 X 10^3 Eosinophils # (Auto) 0.3 0.0-0.3 10^3/uL Basophils # (Auto) 0.1 0.0-0.1 10^3/uL Prothrombin Time 13.0 12.2-14.7 SEC INR Comment 1.0 0.8-1.4 Activated Partial Thromboplast Time 32 24-35 SEC TSH [place] Testing 0.39 0.35-4.94 UIU/ML My Orders Orders - ALYSON SILVER MD Cbc With Automated Diff (08/22/16 23:52) Magnesium (08/22/16 23:52) Ekg Tracing (08/22/16 23:52) Cardiac Profile 1 (08/22/16 23:52) Comprehensive Metabolic Panel (08/22/16 23:52) Myoglobin Serum (08/22/16 23:52) Protime With Inr (08/22/16 23:52) Partial Thromboplastin Time (08/22/16 23:52) O2 (08/22/16 23:52) Monitor-Rhythm Ecg Trace Only (08/22/16 23:52) Lipid Panel (08/23/16 06:00) Saline Lock/Iv-Start (08/22/16 23:52) Diltiazem Injection (Cardizem Injection) (08/23/16 00:00) Sodium Chloride (Ad... W/Diltiazem Drip (08/23/16 00:00) Thyroid Analyzer (08/22/16 23:52) Ns Iv 1000 Ml (Sodium Chloride 0.9%) (08/22/16 23:52) Diltiazem Injection (Cardizem Injection) (08/22/16 23:51) Sodium Chloride (Add-[place]) (Ns (Add-V (08/22/16 23:52) Diltiazem Drip (Cardizem Drip) (08/22/16 23:52) Chest 1 View, Ap/Pa Only (08/23/16 00:01) Magnesium 1 Gm/100 Ml Ivpb (Magnesium [place] (08/23/16 01:45) Apixaban Tablet (Eliquis Tablet) (08/23/16 02:00) Medications Given in ED Current Medications Medications Dose Ordered Sig/Russ Route Start Time Stop Time Status Last Admin Dose Admin Diltiazem HCl 10 mg ONCE ONCE IVP 08/23/16 00:00 08/23/16 00:01 DC 08/22/16 23:57 10 MG Magnesium Sulfate/ Dextrose 100 ml @ 100 mls/hr ONCE ONCE IV 08/23/16 01:45 08/23/16 02:44 DC 08/23/16 01:55 100 MLS/HR Vital Signs/I&O Vital Sign - Last 12Hours 08/22/16 08/22/16 08/22/16 08/23/16 23:44 23:44 23:44 00:01 Temp 97.8 97.8 Pulse 123 123 Resp 20 20 B/P (MAP) 158/99 158/99 Pulse Ox 99 94 99 O2 Delivery Nasal Cannula Nasal Cannula Nasal Cannula O2 Flow Rate 2.0 2.00 2.00 2.00 Blood Pressure Mean: 118 Progress Note : Progress Note Patient was immediately placed on a Cardizem drip and given a Cardizem bolus. Drip was titrated to response. Heart rate improved to the 90's to 120's and patient was feeling much improved. A liter of IV fluids was administered. ECG Initial ECG Impression Date: Aug 23, 2016 Initial ECG Impression Time: 23:48 Initial ECG Rate: 170 Initial ECG Rhythm: A Fib/Flutter Initial ECG Impression: Atrial Fibrillation w/RVR Comment Atrial fibrillation with rapid ventricular rate. Subtle ST depression. No ST elevation. Diagnostic Imaging Diagonstic Imaging: Xray Plain Films/CT/US/NM/MRI: chest Comments Chest x-ray viewed by me. No report available. No acute abnormalities appreciated. Departure Communication Time/Spoke to Admitting Phy: 01:[address] Cabrera Time/Spoke to Consulting Physi: 01:55 Communication/Consulting Dr. Vazquez Impression Impression: Primary Impression: Atrial fibrillation with RVR Additional Impressions: Chest pain Qualified Codes: R07.9 - Chest pain, unspecified Hypomagnesemia Hyponatremia Disposition: ADMITTED INPATIENT Condition: Against Medical Advice Decision to Admit Reason: Admit from ER (General) Decision to Admit/Date: Aug 23, 2016 Time/Decision to Admit Time: 23:48 Departure-Patient Inst. Referrals: LUKE CABRERA MD (PCP/Family) Primary Care Physician ALSYON SILVER MD Aug 23, 2016 02:01
[2016-08-23] MEDS: DILTIAZEM DRIP 100 MG in SODIUM CHLORIDE (ADD-VANTAGE) 100 ML IV SCH ×5 (03:19→21:27)
[2016-08-23] MEDS: NS IV 1000 ML 1,000 ML IV SCH ×3 (03:32→23:30)
[2016-08-23 04:27] LABS: BASOPHILS # (AUTO) 0.1 10^3/uL (0.0-0.1); BASOPHILS % (AUTO) 1 % (0-10); EOSINOPHILS # (AUTO) 0.1 10^3/uL (0.0-0.3); EOSINOPHILS % (AUTO) 1 % (0-10); LYMPHOCYTES # (AUTO) 1.3 X 10^3 (1.0-4.0); LYMPHOCYTES % (AUTO) 12 % (12-44); MEAN CORPUSCULAR HEMOGLOBIN 30 PG (25-34); MEAN CORPUSCULAR HGB CONC 34 G/DL (32-36); MEAN CORPUSCULAR VOLUME 90 FL (80-99); MEAN PLATELET VOLUME 9.5 FL (7.4-10.4); MONOCYTES % (AUTO) 9 % (0-12); NEUTROPHILS # (AUTO) 8.7 X 10^3 (1.8-7.8); NEUTROPHILS % (AUTO) 78 % (42-75); PLATELET COUNT 342 10^3/uL (130-400); RED CELL DISTRIBUTION WIDTH 14.9 % (10.0-14.5); WHITE BLOOD COUNT 11.1 10^3/uL (4.3-11.0)
[2016-08-23 04:57] LABS: ANION GAP 9 MMOL/L (5-14); BLOOD UREA NITROGEN 15 MG/DL (7-18); BUN/CREATININE RATIO 17; CARBON DIOXIDE 22 MMOL/L (21-32); CHLORIDE 100 MMOL/L (98-107); CREATININE SERUM 0.89 MG/DL (0.60-1.30); GFR ESTIMATED > 60; GLUCOSE 114 MG/DL (70-105); MAGNESIUM 1.6 MG/DL (1.8-2.4); PHOSPHORUS 3.4 MG/DL (2.3-4.7); POTASSIUM 4.2 MMOL/L (3.6-5.0); SODIUM 131 MMOL/L (135-145)
[2016-08-23] MEDS: POTASSIUM CL 10MEQ/50ML IVPB 50 ML IV SCH (05:02)
[2016-08-23] MEDS: MAGNESIUM 1 GM/100 ML IVPB 100 ML IV SCH ×3 (05:03→06:25)
[2016-08-23] MEDS: KCL 20 MEQ TAB (K-DUR) PO SCH (05:03)
[2016-08-23 05:53] LABS: CHOLESTEROL 109 MG/DL (< 200); DIRECT LDL 52 MG/DL (1-129); TRIGLYCERIDES 84 MG/DL (<150); VLDL CHOLESTEROL 17 MG/DL (5-40)
[2016-08-23] MEDS ORDERED: CATHETER FLUSH 10 ML SYR IV PRN (06:30)
--- NOTE | 2016-08-23 07:02 | Diagnostic Imaging Report ---
INDICATION: Chest pain. TECHNIQUE: Single view chest 12:15 AM. CORRELATION STUDY: 11/22/2011 FINDINGS: Heart size enlarged and vasculature has increased from prior study. Mildly prominent interstitial markings with mild Mitul B lines. No infiltrate. IMPRESSION: 1. Development of mild congestive changes of the chest. Dictated by: Dictated on workstation # [id number]
[2016-08-23] MEDS ORDERED: ATEN25TA PO (10:33)
[2016-08-23] MEDS ORDERED: PERP1TAB3 PO (10:33)
[2016-08-23] MEDS ORDERED: OMEP40CA36 PO (10:33)
[2016-08-23] MEDS ORDERED: FLUT16SP22 NSEACH (10:33)
[2016-08-23] MEDS ORDERED: METR500T21 PO (10:33)
--- NOTE | 2016-08-23 10:56 | History & Physicial ---
History of Present Illness History of Present Illness Reason for visit/HPI PT IS A 80 Y/O FEMALE WHO WAS RECENTLY HOSPITALIZED WITH ABDOMINAL PAIN AND PROBABLE DIVERTICULITIS. APPARENTLY THE PATIENT HAD PERSISTENT ABDOMINAL PAIN, NAUSEA, AND LOOSE STOOLS. THE PATIENT REPORTS THAT SHE WAS HAVING TROUBLE KEEPING DOWN FOOD/FLUIDS. SHE REPORTS THAT THE NIGHT BEFORE SHE WAS HOSPITALIZED SHE HAD A SENSATION OF DISCOMFORT IN HER CENTRAL CHEST AND A BURNING SENSATION WITH THE NAUSEA. SHE REPORTS THAT SHE HAD A "WEIRD SENSATION" IN HER CHEST LAST NIGHT BEFORE COMING TO THE HOSPITAL. Date of Admission Aug 23, 2016 at 01:55 I consulted on this patient on 08/23/16 10:56 Attending Physician Luke Cabrera MD Admitting Physician Luke Cabrera MD Consult Allergies and Home Medications Allergies Coded Allergies: Sulfa (Sulfonamide Antibiotics) (Verified Adverse Reaction, Mild, RASH, ) Home Medications Alendronate Sodium 70 Mg Tablet, 70 MG PO WEEK, (Reported) Ascorbic Acid 1,000 Mg Tablet, 1,000 MG PO DAILY, (Reported) Atenolol 25 Mg Tablet, 25 MG PO DAILY, (Reported) Cholecalciferol (Vitamin D3) 1,000 Unit Capsule, 1,000 UNIT PO DAILY, (Reported) Cyanocobalamin (Vitamin B-12) 5,000 Mcg Tab.rapdis, 5,000 MCG PO DAILY, ( Reported) Enalapril Maleate 10 Mg Tablet, 10 MG PO DAILY, (Reported) Fenofibrate Nanocrystallized 145 Mg Tablet, 145 MG PO DAILY, (Reported) Fluticasone Propionate 16 Gm [place].susp, 1 SPRAY NSEACH DAILY, (Reported) Folic Acid 0.4 Mg Tablet, 0.4 MG PO DAILY, (Reported) Gluc/Renny-MSM#2/C/D3/Ruben/Born 1 Each Tablet, 1 TAB PO DAILY, (Reported) Levothyroxine Sodium 100 Mcg Tablet, 100 MCG PO DAILY, (Reported) Lysine HCl 500 Mg Tablet, 1,000 MG PO DAILY, (Reported) Metronidazole 500 Mg Tablet, 500 MG PO TID, (Reported) FILLED 08/16/16 #21 FOR A 7 DAY THERAPY / PATIENT STATES SHE ONLY HAD 2 TABLETS LEFT TO TAKE Omeprazole 40 Mg Capsule.dr, 40 MG PO DAILY, (Reported) Perphenazine/Amitriptyline HCl 1 Each Tablet, 2 TAB PO DAILY, (Reported) Simvastatin 20 Mg Tablet, 20 MG PO DAILY, (Reported) Sucralfate 1 Gm Tab, 1 GM PO AC, (Reported) Vitamin E 400 Unit Capsule, 400 UNIT PO DAILY, (Reported) Past [id number]-[id number] Hx Patient Social History Marrital Status: Living Status: LIVES WITH HER Employed/Student: retired Alcohol Use: Denies Use Recreational Drug Use: No Smoking Status: Current Everyday Smoker Type Used: Cigarettes 2nd Hand Smoke Exposure: No Physical Abuse Screen: No Sexual Abuse: No Recent Foreign Travel: No Contact w/other who traveled: No Recent Hopitalizations: No Recent Infectious Disease Expo: No Immunizations Up To Date Tetanus Booster (TDap): Unknown Date of Pneumonia Vaccine: Feb 07, 2005 Date of Influenza Vaccine: Jan 28, 2016 Seasonal Allergies Seasonal Allergies: No Surgeries HX Surgeries: Yes Surgeries: Gallbladder, Hysterectomy Respiratory Hx Respiratory Disorders: No Cardiovascular Hx Cardiovascular Disorders: Yes Cardiac Disorders: High Cholesterol, Hypertension Neurological Hx Neurological Disorders: No Reproductive System Hx Reproductive Disorders: No Female 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 Genitourinary Hx Genitourinary Disorders: No Genitourinary Disorders: UTI-Chronic Gastrointestinal Hx Gastrointestinal Disorders: Yes Gastrointestinal Disorders: Gastroesophageal Reflux, Ulcer Musculoskeletal Hx Musculoskeletal Disorders: Yes (KYPOPLASTY NOVEMBER 2011 L1) Musculoskeletal Disorders: Arthritis Endocrine Hx Endocrine Disorders: Yes Endocrine Disorders: Hypothyroidsim HEENT HX ENT Disorders: No Cancer Hx Cancer: No Psychosocial Hx Psychiatric Problems: No Integumentary HX Skin/Integumentary Disorder: No Blood Transfusions Hx Blood Disorders: No Reviewed Nursing Assessment Reviewed/Agree w Nursing PMH: Yes Family Medical History Significant Family History: Heart Disease, Hypertension Family Hx: Cardiovascular disease 19 FATHER 19 MOTHER G8 BROTHER Hypertension 19 FATHER G8 BROTHER Constitutional: No chills, No fever, malaise, weakness EENTM: No mouth pain, No throat pain, No throat swelling Respiratory: No cough, No dyspnea on exertion, No short of breath Cardiovascular: chest pain, palpitations Gastrointestinal: abdominal pain, No constipation, diarrhea Genitourinary: no symptoms reported Musculoskeletal: back pain, muscle weakness Skin: No lesions, No rash Psychiatric/Neurological: Anxiety Physical Exam Vital Signs Vital Sign - Last 12Hours 08/23/16 03:59 FiO2 96 Capillary Refill : Less Than 3 Seconds General Appearance: No Apparent Distress, WD/WN Eyes: Bilateral Eye EOMI, Bilateral Eye Normal Inspection, Bilateral Eye PERRL HEENT: PERRL/EOMI, Pharynx Normal Neck: Full Range of Motion, Supple Respiratory: Chest Non Tender, Lungs Clear, Normal Breath Sounds, No Accessory Muscle Use Cardiovascular: Irregularly Irregular Gastrointestinal: Normal Bowel Sounds, No Organomegaly, No Pulsatile Mass, Soft , Tenderness Rectal: Deferred Back: Normal Inspection, No Vertebral Tenderness Extremity: Normal Capillary Refill, No Pedal Edema Neurologic/Psychiatric: Alert, Oriented x3, No Motor/Sensory Deficits, Normal Mood/Affect Skin: Warm/Dry Lymphatic: No Adenopathy Assessment/Plan Assessment and Plan ATRIAL FIBRILLATION HYPONATREMIA HYPOMAGNESEMIA NAUSEA ESOPHAGEAL REFLUX ABDOMINAL PAIN PT ADMITTED TO THE HOSPITAL TO THE CARDIAC STEPDOWN UNIT - DR. RAMIREZ WAS CONTACTED BY THE EMERGENCY DEPARTMENT PHYSICIAN LAST NIGHT FOR CONSULTATION THIS MORNING. PT ON CARDIZEM DRIP. 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 HYPONATREMIA AND HYPOMAGNESEMIA - REPLENISHED WITH IV FLUIDS AND IV MAGNESIUM. NAUSEA AND ABDOMINAL PAIN - CHECK SCAN OF ABDOMEN IF PAIN DOES NOT IMPROVE WITH HYDRATION. GERD - START PROTONIX IV. Problems: Admission Diagnosis ATRIAL FIBRILLATION HYPONATREMIA HYPOMAGNESEMIA NAUSEA ESOPHAGEAL REFLUX ABDOMINAL PAIN Clinical Quality Measures DVT/VTE Risk/Contraindication: Risk Factor Score Per Nursin RFS Level Per Nursing on Admit: 4+=Very High LUKE CABRERA MD Aug 23, 2016 10:56
[2016-08-23] MEDS: APIXABAN 5 MG (ELIQUIS) TABLET PO SCH ×2 (11:00→20:14)
--- NOTE | 2016-08-23 13:11 | Consultation-Cardiology ---
HPI-Cardiology Cardiology Consultation: Date of Consultation 08/23/16 Date of Admission Attending Physician Kandi Cabrera MD Admitting Physician Kandi Cabrera MD Consulting Physician Latisha VAZQUEZ MD HPI: Chief Complaint: chest pain, palpitations this is 80-year-old lady with history of myocardial infarction in 1998, status post PCI. She presents with episode of chest pain and palpitations. She was found to be in atrial fibrillation with rapid ventricular rate in the ER. She responded to IV Cardizem. On my interview she is not having any further chest pain. Review of Systems-Cardiology Review of Systems Constitutional: No As described under HPI, No no symptoms reported, No chills, No fever, No lightheadedness, No malaise, No tiredness, No weight loss, No weight gain, No other Eyes: No As described under HPI, No no symptoms reported, No blindness, No blurred vision, No contact lenses, No drainage, No decreased acuity, No foreign body sensation, No glasses, No inflammation, No pain, No photophobia, No previous injury, No shadows, No tunnel vision, No other, No vision change Ears/Nose/Throat: No As described under HPI, No no symptoms reported, No chronic hearing loss, No epistaxis, No ear discharge, No ear pain, No loose teeth, No mouth pain, No mouth swelling, No nasal drainage, No nose pain, No recent hearing loss, No throat pain, No throat swelling, No ulcerations, No other Respiratory: No no symptoms reported, No As described under HPI, No cough, No orthopnea, No shortness of breath, No SOB with excertion, No SOB at rest, No stridor, No wheezing, No other Cardiovascular: chest pain, irregular heart rate, palpitations Gastrointestinal: No no symptoms reported, No As described under HPI, No abdomen distended, No abdominal pain, No blood streaked bowels, No constipation , No diarrhea, No difficulty swallowing, No nausea, No poor appetite, No poor fluid intake, No rectal bleeding, No vomiting, No other, No nausea/vomiting/ diarrhea, No stool coloration changes Genitourinary: No no symptoms reported, No As described under HPI, No burning, No dysuria, No discharge, No frequency, No flank pain, No hematuria, No incontinence, No pain, No urgency, No other, No urine frequency changes, No urine coloration changes Musculoskeletal: No no symptoms reported, No As describe under HPI, No back pain, No gout, No joint pain, No joint swelling, No muscle pain, No muscle stiffness, No neck pain, No other Skin: No no symptoms reported, No As described under HPI, No change in color, No change in hair/nails, No dryness, No lesions, No lumps, No rash, No other, No skin related problems, No ulcerations, No rash on exposed areas, No ulcerations on exposed areas Psychiatric/Neurological: No As described under HPI, No anxiety, No depression , No emotional problems, No focal weakness, No headache, No no symptoms reported , No numbness, No other, No pre-existing deficit, No seizure, No syncope, No tingling, No tremors, No weakness [id number] Hx Patient Social History Alcohol Use: Denies Use Recreational Drug Use: No Smoking Status: Current Everyday Smoker Type Used: Cigarettes 2nd Hand Smoke Exposure: No Recent Foreign Travel: No Recent Infectious Disease Expo: No Hospitalization with Isolation: Denies Physical Abuse Screen: No Sexual Abuse: No Immunizations Up To Date Tetanus Booster (TDap): Unknown Date of Pneumonia Vaccine: Feb 07, 2005 Date of Influenza Vaccine: Jan 28, 2016 Past Medical History PMH As described under Assessment. Family Medical History Family History: Cardiovascular disease 19 FATHER 19 MOTHER G8 BROTHER Hypertension 19 FATHER G8 BROTHER Allergies and Home Medications Allergies Coded Allergies: Sulfa (Sulfonamide Antibiotics) (Verified Adverse Reaction, Mild, RASH, ) Home Medications Alendronate Sodium 70 Mg Tablet, 70 MG PO WEEK, (Reported) Ascorbic Acid 1,000 Mg Tablet, 1,000 MG PO DAILY, (Reported) Atenolol 25 Mg Tablet, 25 MG PO DAILY, (Reported) Cholecalciferol (Vitamin D3) 1,000 Unit Capsule, 1,000 UNIT PO DAILY, (Reported) Cyanocobalamin (Vitamin B-12) 5,000 Mcg Tab.rapdis, 5,000 MCG PO DAILY, ( Reported) Enalapril Maleate 10 Mg Tablet, 10 MG PO DAILY, (Reported) Fenofibrate Nanocrystallized 145 Mg Tablet, 145 MG PO DAILY, (Reported) Fluticasone Propionate 16 Gm [place].susp, 1 SPRAY NSEACH DAILY, (Reported) Folic Acid 0.4 Mg Tablet, 0.4 MG PO DAILY, (Reported) Gluc/Renny-MSM#2/C/D3/Ruben/Born 1 Each Tablet, 1 TAB PO DAILY, (Reported) Levothyroxine Sodium 100 Mcg Tablet, 100 MCG PO DAILY, (Reported) Lysine HCl 500 Mg Tablet, 1,000 MG PO DAILY, (Reported) Metronidazole 500 Mg Tablet, 500 MG PO TID, (Reported) FILLED 08/16/16 #21 FOR A 7 DAY THERAPY / PATIENT STATES SHE ONLY HAD 2 TABLETS LEFT TO TAKE Omeprazole 40 Mg Capsule.dr, 40 MG PO DAILY, (Reported) Perphenazine/Amitriptyline HCl 1 Each Tablet, 2 TAB PO DAILY, (Reported) Simvastatin 20 Mg Tablet, 20 MG PO DAILY, (Reported) Sucralfate 1 Gm Tab, 1 GM PO AC, (Reported) Vitamin E 400 Unit Capsule, 400 UNIT PO DAILY, (Reported) Physical Exam-Cardiology Physical Exam Vital Signs/I&O Vital Sign - Last 12Hours 08/23/16 08/23/16 08/23/16 08/23/16 02:35 03:00 03:37 03:38 Temp 96.5 96.5 Pulse 93 91 108 Resp 16 17 B/P (MAP) 123/84 131/85 Pulse Ox 96 96 96 O2 Delivery Nasal Cannula O2 Flow Rate 2.00 2.00 2.00 08/23/16 08/23/16 08/23/16 08/23/16 03:59 04:00 05:00 05:09 Pulse 89 87 Resp 21 B/P (MAP) 120/67 110/58 110/68 Pulse Ox 96 96 O2 Delivery Nasal Cannula Nasal Cannula O2 Flow Rate 2.00 2.00 2.00 FiO2 96 08/23/16 08/23/16 08/23/16 08/23/16 05:13 06:00 07:00 08:00 Temp 96.5 Pulse 108 62 73 70 Resp 17 22 21 18 B/P (MAP) 110/68 101/65 120/68 113/59 Pulse Ox 96 92 94 O2 Delivery Nasal Cannula Nasal Cannula Nasal Cannula O2 Flow Rate 2.00 2.00 2.00 2.00 08/23/16 08/23/16 08/23/16 08/23/16 08:00 08:00 09:00 10:00 Temp 97.6 Pulse 66 69 Resp 22 23 B/P (MAP) 124/65 134/72 Pulse Ox 98 94 95 O2 Delivery Nasal Cannula Nasal Cannula Nasal Cannula O2 Flow Rate 2.00 2.00 2.00 2.00 08/23/16 08/23/16 10:39 12:00 Pulse 74 B/P (MAP) 136/71 Pulse Ox 97 O2 Flow Rate 2.00 Capillary Refill : Less Than 3 Seconds Constitutional: No appears stated age, No AAO x 3, No apparent distress, No PERRL, No well-developed, No well-nourished, No other HEENT: No PERRL, No normal ENT inspection, No TMs normal, No pharynx normal, No scleral icterus (R), No scleral icterus (L), No pale conjunctivae (R), No pale conjunctivae (L), No photophobia, No TM abnormal (R), No TM abnormal (L), No pharyngeal erythema, No tonsillar exudate, No other, No discharge, No EOMI, No hearing is well preserved, No hard of hearing, No oral hygience is good, No ulceration, No xanthelasmas are seen Neck: No non-tender, No full range of motion, No supple, No normal inspection, No carotid bruit, No limited range of motion, No lymphadenopathy (R), No lymphadenopathy (L), No tender lateral, No tender midline, No thyromegaly, No other, No carotid pulses are 2 + bilaterally, No with good upstrokes Respiratory: No accessory muscle use, No respiratory distress, No chest tender , No chest expansion is symmetric, No chest is bilaterally symmetric, No lungs clear to percussion, No lungs clear to auscultation, No crackles, No rhonchi, No rales, No stridor, No wheezing, No pleural rub, No other Cardiovascular: No regular rate-rhythm, irregularly irregular, No extra beats, No parasternal heave is noted, No JVD, No edema, No bradycardia, No tachycardia , No point of maximal impulse, No cardiac thrills are palpable, No S1 and S2, No gallop/S3, No gallop/S4, No diastolic murmur, No systolic murmur, No friction rub, No click, No other Gastrointestinal: No tender, No soft, No round, No distended, No pulsatile mass , No organomegaly, No guarding, No rebound, No tenderness, No hernia, No mass, No audible bowel sounds, No abnormal bowel sounds, No abdominal bruits, No spleenomegaly, No other Rectal: deferred Extremities: No normal range of motion, No non-tender, No normal inspection, No pedal edema, No calf tenderness, No normal capillary refill, No pelvis stable , No calf tenderness, No inflammation, No pedal edema, No slow capillary refill , No swelling, No other, No abrasion, No clubbing, No cyanosis, No ecchymosis, No laceration, No no lower extremity edema bilateral, No significant edema, No tenderness, No wound Neurologic/Psychiatric: No knee bolter II-XII nml as tested, No no motor/sensory deficits, No alert, No normal mood/affect, No oriented x 3, No abnormal cerebellar tests, No abnormal knee bolter II-XII, No abnormal gait, No aphasia, No EOM palsy, No facial droop, No motor weakness, No sensory deficit, No depressed affect, No disoriented x 3, No other, No grossly intact, No power is 5/5 both on sides Skin: No normal color, No warm/dry, No cyanosis, No cool, No diaphoresis, No damp, No ecchymosis, No jaundice, No mottled, No pallor, No rash, No tattoos/ piercings, No ulcerations, No rash on exposed areas, No ulcerations on exposed areas, No other Data Review Labs Laboratory Tests 08/22/16 23:52: White Blood Count 10.1, Red Blood Count 4.24L, Hemoglobin 13.0, Hematocrit 38, Mean Corpuscular Volume 89, Mean Corpuscular Hemoglobin 31, Mean Corpuscular Hemoglobin Concent 35, Red Cell Distribution Width 14.9H, Platelet Count 365, Mean Platelet Volume 9.2, Neutrophils (%) (Auto) 54, Lymphocytes (%) (Auto) 28, Monocytes (%) (Auto) 14H, Eosinophils (%) (Auto) 3, Basophils (%) (Auto) 1, Neutrophils # (Auto) 5.4, Lymphocytes # (Auto) 2.9, Monocytes # (Auto) 1.5H, Eosinophils # (Auto) 0.3, Basophils # (Auto) 0.1, Prothrombin Time 13.0, INR Comment 1.0, Activated Partial Thromboplast Time 32, TSH [place] Testing 0.39 08/23/16 03:40: White Blood Count 11.1H, Red Blood Count 3.90L, Hemoglobin 11.7, Hematocrit 35, Mean Corpuscular Volume 90, Mean Corpuscular Hemoglobin 30, Mean Corpuscular Hemoglobin Concent 34, Red Cell Distribution Width 14.9H, Platelet Count 342, Mean Platelet Volume 9.5, Neutrophils (%) (Auto) 78H, Lymphocytes (%) (Auto) 12 , Monocytes (%) (Auto) 9, Eosinophils (%) (Auto) 1, Basophils (%) (Auto) 1, Neutrophils # (Auto) 8.7H, Lymphocytes # (Auto) 1.3, Monocytes # (Auto) 1.0, Eosinophils # (Auto) 0.1, Basophils # (Auto) 0.1, Sodium Level 131L, Potassium Level 4.2, Chloride Level 100, Carbon Dioxide Level 22, Anion Gap 9, Blood Urea Nitrogen 15, Creatinine 0.89, Estimat Glomerular Filtration Rate > 60, BUN/ Creatinine Ratio 17, Glucose Level 114H, Calcium Level 9.0, Phosphorus Level 3.4 , Magnesium Level 1.6L, Triglycerides Level 84, Cholesterol Level 109, LDL Cholesterol Direct 52, VLDL Cholesterol 17, HDL Cholesterol 43 ECG Impression ECG Initial ECG Impression: Atrial Fibrillation A/P-Cardiology Assessment/Admission Diagnosis 1. Atrial fibrillation, 2. Chest pain, 3. Coronary artery disease Plan new onset atrial fibrillation: Continue IV Cardizem. Gradually transition to by mouth Cardizem. Needs oral anticoagulation with Eliquis. Chest pain: History of coronary artery disease. Lexiscan nuclear stress test and echocardiogram is recommended. Thank you for your consultation. Please call me if you have any questions. Manpreet Vazquez MD, FACP, FACC, FSCAI, FHRS, CCDS Interventional Cardiology Cardiac Electrophysiology Vascular Medicine and Endovascular Interventions Clinical Quality Measures DVT/VTE Risk/Contraindication: Risk Factor Score Per Nursin RFS Level Per Nursing on Admit: 4+=Very High Latisha VAZQUEZ MD Aug 23, 2016 1:11 pm
[2016-08-23] MEDS ORDERED: PANTOPRAZOLE 40 MG/10 ML (PROTONIX) VIAL IV NR (15:30)
[2016-08-23] MEDS: metroNIDAZOLE 500MG/100ML IVPB 100 ML IV SCH ×2 (15:31→21:31)
[2016-08-23] MEDS: CATHETER FLUSH 10 ML SYR IV SCH ×2 (15:49→20:14)
[2016-08-23] MEDS: PANTOPRAZOLE 40 MG/10 ML (PROTONIX) VIAL IV SCH (20:14)
[2016-08-24] VITALS (22 sets, daily range): BP systolic 116–156; BP diastolic 66–94
[2016-08-24] MEDS: DILTIAZEM DRIP 100 MG in SODIUM CHLORIDE (ADD-VANTAGE) 100 ML IV SCH ×3 (02:45→18:48)
[2016-08-24 04:21] LABS: MEAN PLATELET VOLUME 9.3 FL (7.4-10.4); RED BLOOD COUNT 3.72 10^6/uL (4.35-5.85); RED CELL DISTRIBUTION WIDTH 15.3 % (10.0-14.5); WHITE BLOOD COUNT 7.9 10^3/uL (4.3-11.0)
[2016-08-24 04:42] LABS: ALANINE AMINOTRANSFERASE 9 U/L (0-55); ANION GAP 8 MMOL/L (5-14); ASPARTATE AMINO TRANSFERASE 16 U/L (5-34); BILIRUBIN,TOTAL 0.4 MG/DL (0.1-1.0); BLOOD UREA NITROGEN 9 MG/DL (7-18); BUN/CREATININE RATIO 12; CALCIUM 8.4 MG/DL (8.5-10.1); CARBON DIOXIDE 22 MMOL/L (21-32); CHLORIDE 104 MMOL/L (98-107); CREATININE SERUM 0.77 MG/DL (0.60-1.30); GFR ESTIMATED > 60; GLUCOSE 110 MG/DL (70-105); MAGNESIUM 1.6 MG/DL (1.8-2.4); POTASSIUM 3.9 MMOL/L (3.6-5.0); SODIUM 134 MMOL/L (135-145); TOTAL PROTEIN 5.6 G/DL (6.4-8.2)
[2016-08-24] MEDS: metroNIDAZOLE 500MG/100ML IVPB 100 ML IV SCH ×3 (05:03→22:50)
[2016-08-24] MEDS: NS IV 1000 ML 1,000 ML IV SCH (05:04)
[2016-08-24] MEDS: CATHETER FLUSH 10 ML SYR IV SCH ×3 (05:07→22:00)
[2016-08-24] MEDS: MAGNESIUM 1 GM/100 ML IVPB 100 ML IV SCH ×3 (06:00→07:58)
[2016-08-24] MEDS: KCL 20 MEQ TAB (K-DUR) PO SCH (06:00)
[2016-08-24] MEDS: POTASSIUM CL 10MEQ/50ML IVPB 50 ML IV SCH (06:00)
[2016-08-24] MEDS: APIXABAN 5 MG (ELIQUIS) TABLET PO SCH ×2 (08:34→22:50)
[2016-08-24] MEDS: PANTOPRAZOLE 40 MG/10 ML (PROTONIX) VIAL IV SCH (08:35)
--- NOTE | 2016-08-24 09:33 | Diagnostic Imaging Report ---
Portable erect AP chest at 4:31 AM. INDICATION: Chest pain, atrial fibrillation. The cardiomegaly and the mild pulmonary congestion noted on the prior exam of 08/23/2016, are again visualized and no different; however, in the interval since the prior study, a poorly defined band of increased density has developed in the right midlung. This may be secondary to a small focus of pneumonia/atelectasis. The overall appearance of the chest is otherwise stable. There is no acute bony abnormality identified. There is some deformity of the distal left clavicle. Most likely this is a sequela of prior trauma. IMPRESSION: Aside from the development of a poorly defined band of increased density in the right midlung, there has been no significant change since the prior study. A followup study would be recommended for continued evaluation. Dictated by: Dictated on workstation # [id number]
[2016-08-24] MEDS ORDERED: DILTIAZEM 240 MG (CARDIZEM CD) CAP PO ONE (11:57)
[2016-08-24] MEDS: DILTIAZEM 240 MG (CARDIZEM CD) CAP PO SCH ×2 (12:03→22:50)
--- NOTE | 2016-08-24 12:12 | Cardiology Progress Note ---
Cardiology SOAP Progress Note Subjective: no complaints. Occasional palpitations. Objective: I&O/Vital Signs Vital Sign - Last 12Hours 08/24/16 08/24/16 08/24/16 08/24/16 01:00 01:00 02:00 02:45 Pulse 75 85 108 98 Resp B/P (MAP) 122/82 116/74 Pulse Ox 94 O2 Delivery Nasal Cannula Nasal Cannula O2 Flow Rate 2.00 2.00 08/24/16 08/24/16 08/24/16 08/24/16 03:00 04:00 04:00 05:00 Pulse 86 85 90 Resp B/P (MAP) 127/82 139/89 156/92 Pulse Ox 93 93 95 94 O2 Delivery Nasal Cannula Nasal Cannula Nasal Cannula O2 Flow Rate 2.00 2.00 2.00 2.00 08/24/16 08/24/16 08/24/16 08/24/16 06:00 07:00 07:00 07:58 Pulse 105 102 98 110 Resp B/P (MAP) 138/80 147/82 126/88 Pulse Ox 94 O2 Delivery Nasal Cannula Nasal Cannula O2 Flow Rate 2.00 2.00 08/24/16 08/24/16 08/24/16 08/24/16 08:00 08:00 09:00 10:00 Temp 97.0 Pulse 110 110 109 Resp B/P (MAP) 135/86 134/67 139/85 Pulse Ox 93 95 94 94 O2 Delivery Nasal Cannula Nasal Cannula Nasal Cannula O2 Flow Rate 2.00 2.00 2.00 2.00 Intake and Output 08/24/16 00:00 Intake Total 1800 ml Output Total 1475 ml Balance 325 ml Weight (Pounds): 165 Weight (Ounces): 6.0 Weight (Calculated Kilograms): [id number] Constitutional: No appears stated age, No AAO x 3, No apparent distress, No PERRL, No well-developed, No well-nourished, No other Respiratory: No accessory muscle use, No respiratory distress, No chest tender , No chest expansion is symmetric, No chest is bilaterally symmetric, No lungs clear to percussion, No lungs clear to auscultation, No crackles, No rhonchi, No rales, No stridor, No wheezing, No pleural rub, No other Cardiovascular: No regular rate-rhythm, irregularly irregular, No extra beats, No parasternal heave is noted, No JVD, No edema, No bradycardia, No tachycardia , No point of maximal impulse, No cardiac thrills are palpable, No S1 and S2, No gallop/S3, No gallop/S4, No diastolic murmur, No systolic murmur, No friction rub, No click, No other Gastrointestional: No tender, No soft, No round, No distended, No pulsatile mass, No organomegaly, No guarding, No rebound, No tenderness, No hernia, No mass, No audible bowel sounds, No abnormal bowel sounds, No abdominal bruits, No spleenomegaly, No other Extremities: No normal range of motion, No non-tender, No normal inspection, No pedal edema, No calf tenderness, No normal capillary refill, No pelvis stable , No calf tenderness, No inflammation, No pedal edema, No slow capillary refill , No swelling, No other, No abrasion, No clubbing, No cyanosis, No ecchymosis, No laceration, No no lower extremity edema bilateral, No significant edema, No tenderness, No wound Neurologic/Psychiatric: No mechanical service technician II-XII nml as tested, No no motor/sensory deficits, No alert, No normal mood/affect, No oriented x 3, No abnormal cerebellar tests, No abnormal mechanical service technician II-XII, No abnormal gait, No aphasia, No EOM palsy, No facial droop, No motor weakness, No sensory deficit, No depressed affect, No disoriented x 3, No other, No grossly intact, No power is 5/5 both on sides Skin: No normal color, No warm/dry, No cyanosis, No cool, No diaphoresis, No damp, No ecchymosis, No jaundice, No mottled, No pallor, No rash, No tattoos/ piercings, No ulcerations, No rash on exposed areas, No ulcerations on exposed areas, No other Results/Procedures: Labs Laboratory Tests 08/24/16 03:20: White Blood Count 7.9, Red Blood Count 3.72L, Hemoglobin 11.2L, Hematocrit 34L, Mean Corpuscular Volume 91, Mean Corpuscular Hemoglobin 30, Mean Corpuscular Hemoglobin Concent 33, Red Cell Distribution Width 15.3H, Platelet Count 330, Mean Platelet Volume 9.3, Sodium Level 134L, Potassium Level 3.9, Chloride Level 104, Carbon Dioxide Level 22, Anion Gap 8, Blood Urea Nitrogen 9, Creatinine 0.77, Estimat Glomerular Filtration Rate > 60, BUN/Creatinine Ratio 12, Glucose Level 110H, Calcium Level 8.4L, Magnesium Level 1.6L, Total Bilirubin 0.4, Aspartate Amino Transf (AST/SGOT) 16, Alanine Aminotransferase ( ALT/SGPT) 9, Alkaline Phosphatase 28L, Total Protein 5.6L, Albumin 3.0L Microbiology 08/23/16 MRSA Screen - Final, Complete MRSA not isolated A/P: Assessment/Dx: 1. Atrial fibrillation, 2. Chest pain, 3. Coronary artery disease Plan: new onset atrial fibrillation: transition IV Cardizem to by mouth Cardizem. Started Cardizem CD 240 mg twice a day and taper off IV Cardizem. Needs oral anticoagulation with Eliquis. Chest pain: History of coronary artery disease. Lexiscan nuclear stress test and echocardiogram today. Thank you for your consultation. Please call me if you have any questions. Manpreet Vazquez MD, FACP, FACC, FSCAI, FHRS, CCDS Interventional Cardiology Cardiac Electrophysiology Vascular Medicine and Endovascular Interventions Latisha VAZQUEZ MD Aug 24, 2016 12:12 pm
[2016-08-24] MEDS ORDERED: REGADENOSON 0.4 MG/5 ML SYR (LEXISCAN) IV ONE ×2 (13:47→14:00)
[2016-08-24] MEDS ORDERED: ALPRAZolam 0.25 MG (XANAX) TAB PO PRN (20:00)
--- NOTE | 2016-08-24 20:02 | Progress Note (SOAP) ---
Subjective Subjective/Events-last exam Fwup new onset atrial fibrillation with RVR--still on cardizem drip--have been unable to titrate down, chest pain with history of CAD, hypertension, hypothyroidism, hypomagnesemia, GERD. Denies chest pain, denies palpitations, denies shortness of air. Objective Exam Vital Signs Date Time Temp Pulse Resp B/P (MAP) Pulse Ox O2 Delivery O2 Flow Rate FiO2 08/24/16 19:00 107 24 133/92 93 Nasal Cannula 2.00 08/24/16 18:48 130 128/80 08/24/16 18:00 108 24 128/80 Nasal Cannula 2.00 08/24/16 17:27 98.6 08/24/16 17:08 2.00 08/24/16 17:00 141 7 148/88 Nasal Cannula 2.00 08/24/16 16:00 95 Nasal Cannula 2.00 08/24/16 16:00 98.3 112 19 123/86 95 Nasal Cannula 2.00 08/24/16 15:00 137 19 95 Nasal Cannula 2.00 08/24/16 13:58 107 19 152/93 93 Room Air 08/24/16 12:00 97.9 Nasal Cannula 2.00 08/24/16 12:00 93 25 134/82 94 Nasal Cannula 2.00 08/24/16 12:00 95 Nasal Cannula 2.00 08/24/16 11:00 96 21 129/88 95 Nasal Cannula 2.00 08/24/16 10:00 109 17 139/85 94 Nasal Cannula 2.00 08/24/16 09:00 110 23 134/67 94 Nasal Cannula 2.00 08/24/16 08:00 97.0 110 16 135/86 95 Nasal Cannula 2.00 08/24/16 08:00 93 2.00 08/24/16 07:58 110 126/88 08/24/16 07:00 98 08/24/16 07:00 102 22 147/82 Nasal Cannula 2.00 08/24/16 06:00 105 17 138/80 94 Nasal Cannula 2.00 08/24/16 05:00 90 22 156/92 94 Nasal Cannula 2.00 08/24/16 04:00 85 21 139/89 95 Nasal Cannula 2.00 08/24/16 04:00 93 2.00 08/24/16 03:00 86 23 127/82 93 Nasal Cannula 2.00 08/24/16 02:45 98 08/24/16 02:00 108 21 116/74 94 Nasal Cannula 2.00 08/24/16 01:00 85 08/24/16 01:00 75 18 122/82 Nasal Cannula 2.00 08/24/16 00:00 93 2.00 08/24/16 00:00 98.7 107 22 119/66 90 Nasal Cannula 2.00 08/23/16 23:00 98 26 136/67 91 Nasal Cannula 2.00 08/23/16 22:00 87 22 124/80 88 Nasal Cannula 2.00 08/23/16 21:27 101 08/23/16 21:00 86 17 131/82 95 Nasal Cannula 2.00 08/23/16 20:00 99.1 104 17 120/65 92 Nasal Cannula 2.00 08/23/16 20:00 95 2.00 I & O 08/24/16 07:00 Intake Total 3750 ml Output Total 3025 ml Balance 725 ml Capillary Refill : Less Than 3 Seconds General Appearance: No Apparent Distress Neck: Supple Respiratory: Lungs Clear, Decreased Breath Sounds Cardiovascular: Systolic Murmur, Irregularly Irregular Gastrointestinal: normal bowel sounds, non tender, soft Extremity: Non Tender, No Calf Tenderness, Pedal Edema Neurologic/Psychiatric: Alert, Oriented x3 Results Lab Laboratory Tests 08/24/16 03:20: White Blood Count 7.9, Red Blood Count 3.72L, Hemoglobin 11.2L, Hematocrit 34L, Mean Corpuscular Volume 91, Mean Corpuscular Hemoglobin 30, Mean Corpuscular Hemoglobin Concent 33, Red Cell Distribution Width 15.3H, Platelet Count 330, Mean Platelet Volume 9.3, Sodium Level 134L, Potassium Level 3.9, Chloride Level 104, Carbon Dioxide Level 22, Anion Gap 8, Blood Urea Nitrogen 9, Creatinine 0.77, Estimat Glomerular Filtration Rate > 60, BUN/Creatinine Ratio 12, Glucose Level 110H, Calcium Level 8.4L, Magnesium Level 1.6L, Total Bilirubin 0.4, Aspartate Amino Transf (AST/SGOT) 16, Alanine Aminotransferase ( ALT/SGPT) 9, Alkaline Phosphatase 28L, Total Protein 5.6L, Albumin 3.0L Microbiology 08/23/16 MRSA Screen - Final, Complete MRSA not isolated Assessment/Plan Assessment/Plan Assess & Plan/Chief Complaint 1. New onset atrial fibrillation with RVR--still on cardizem drip, cardiology starting oral cardizem and is on eliquis 2. Chest Pain with history of CAD--stress test today 3. Hypertension--stable on cardizem drip 4. Hypothyroidism--restart levothyroxine 5. Hypomagnesemia--on Mg replacement protocol 6. GERD--restart PPI and sucralfate Clinical Quality Measures DVT/VTE Risk/Contraindication: Risk Factor Score Per Nursin RFS Level Per Nursing on Admit: 4+=Very High MARITZA DREW DO Aug 24, 2016 20:02
[2016-08-24] MEDS ORDERED: SIMvastatin 20 MG (ZOCOR) TAB PO SCH (21:00)
[2016-08-25] VITALS (16 sets, daily range): BP systolic 106–137; BP diastolic 62–95
[2016-08-25] MEDS: DILTIAZEM DRIP 100 MG in SODIUM CHLORIDE (ADD-VANTAGE) 100 ML IV SCH ×2 (01:23→15:59)
[2016-08-25] MEDS: NS IV 1000 ML 1,000 ML IV SCH (03:54)
[2016-08-25] MEDS: CATHETER FLUSH 10 ML SYR IV SCH ×2 (03:55→16:01)
[2016-08-25] MEDS ORDERED: LEVOTHYROXINE 100 MCG (LEVOTHROID) TAB PO SCH (06:30)
[2016-08-25] MEDS ORDERED: PANTOPRAZOLE 40 MG (PROTONIX) TAB PO SCH (07:00)
[2016-08-25] MEDS: POTASSIUM CL 10MEQ/50ML IVPB 50 ML IV SCH (07:28)
[2016-08-25] MEDS: KCL 20 MEQ TAB (K-DUR) PO SCH (07:29)
[2016-08-25] MEDS: SUCRALFATE 1 GM (CARAFATE) TAB PO SCH ×3 (07:34→16:01)
[2016-08-25] MEDS: MAGNESIUM 1 GM/100 ML IVPB 100 ML IV SCH (07:34)
[2016-08-25] MEDS: metroNIDAZOLE 500MG/100ML IVPB 100 ML IV SCH (07:34)
--- NOTE | 2016-08-25 07:43 | Diagnostic Imaging Report ---
INDICATION: Atrial fibrillation. Chest pain. COMPARISON: 08/24/2016 FINDINGS: Single frontal radiographic view of the chest was obtained and demonstrates stable cardiac silhouette and pulmonary vasculature. Linear opacity in the right perihilar region is again noted and is felt to be on the basis of platelike atelectasis. Otherwise, lungs remain clear. There is no new large effusion or pneumothorax. Bony structures show no gross acute abnormalities. IMPRESSION: 1. Essentially stable exam of the chest showing some platelike atelectasis in the right midlung field. Dictated by: Dictated on workstation # [id number]
--- NOTE | 2016-08-25 08:00 | Progress Note (SOAP) ---
Subjective Subjective/Events-last exam PT IS A 80 Y/O FEMALE WHO IS KNOWN TO ME FROM CLINIC. PER NURSE REPORT IN CHART, PT HAD OXYGEN THAT DIPPED DOWN TO THE 70'S OFF OF OXYGEN, OXYGEN APPLIED AND O2 CAME UP TI MID 90'S ON 3 LITERS, AND THEN DECREASED DOWN TO 2 LITERS WILL WEAN PT DOWN ON OXYGEN, MAY REQUIRE NIGHT-TIME OXYGEN. Objective Exam Vital Signs Date Time Temp Pulse Resp B/P (MAP) Pulse Ox O2 Delivery O2 Flow Rate FiO2 08/25/16 04:00 96 Room Air 08/25/16 04:00 98.6 126 21 132/72 93 Nasal Cannula 2.00 08/25/16 03:00 98.6 131 22 132/64 95 Room Air 08/25/16 02:00 98.6 126 22 128/63 95 Nasal Cannula 2.00 08/25/16 01:23 107 16 111/78 94 2.00 08/25/16 01:00 98.6 126 10 111/78 91 Nasal Cannula 2.00 08/25/16 01:00 86 08/25/16 00:00 98.6 126 20 117/79 91 Room Air 08/25/16 00:00 96 Room Air 08/24/16 23:00 131 12 126/66 91 Room Air 08/24/16 22:32 98.6 08/24/16 22:00 126 22 124/71 91 Nasal Cannula 2.00 08/24/16 21:00 129 22 142/67 Nasal Cannula 2.00 08/24/16 20:00 110 31 135/94 Nasal Cannula 2.00 08/24/16 20:00 95 Room Air 08/24/16 20:00 98.1 08/24/16 19:00 107 24 133/92 93 Nasal Cannula 2.00 08/24/16 19:00 110 08/24/16 18:48 130 128/80 08/24/16 18:00 108 24 128/80 Nasal Cannula 2.00 08/24/16 17:27 98.6 08/24/16 17:08 2.00 08/24/16 17:00 141 7 148/88 Nasal Cannula 2.00 08/24/16 16:00 95 Nasal Cannula 2.00 08/24/16 16:00 98.3 112 19 123/86 95 Nasal Cannula 2.00 08/24/16 15:00 137 19 95 Nasal Cannula 2.00 08/24/16 13:58 107 19 152/93 93 Room Air 08/24/16 12:00 97.9 Nasal Cannula 2.00 08/24/16 12:00 93 25 134/82 94 Nasal Cannula 2.00 08/24/16 12:00 95 Nasal Cannula 2.00 08/24/16 11:00 96 21 129/88 95 Nasal Cannula 2.00 08/24/16 10:00 109 17 139/85 94 Nasal Cannula 2.00 08/24/16 09:00 110 23 134/67 94 Nasal Cannula 2.00 08/24/16 08:00 97.0 110 16 135/86 95 Nasal Cannula 2.00 08/24/16 08:00 93 2.00 I & O 08/25/16 07:00 Intake Total 2500 ml Output Total 1450 ml Balance 1050 ml Capillary Refill : Less Than 3 Seconds General Appearance: WD/WN Results Lab Microbiology 08/23/16 MRSA Screen - Final, Complete MRSA not isolated Assessment/Plan Assessment/Plan Assess & Plan/Chief Complaint see discharge summary Clinical Quality Measures DVT/VTE Risk/Contraindication: Risk Factor Score Per Nursin RFS Level Per Nursing on Admit: 4+=Very High LUKE TANG MD Aug 25, 2016 08:00
[2016-08-25] MEDS ORDERED: PATIENT MAY USE OWN MED,SINGLE MED PO SCH (08:30)
[2016-08-25] MEDS: APIXABAN 5 MG (ELIQUIS) TABLET PO SCH (08:49)
[2016-08-25] MEDS: DILTIAZEM 240 MG (CARDIZEM CD) CAP PO SCH (08:49)
--- NOTE | 2016-08-25 08:51 | ECHOCARDIOGRAPHY REPORT ---
PROCEDURE PHYSICIAN: CELIA VAZQUEZ DATE OF PROCEDURE: 08/23/2016 TWO DIMENSIONAL ECHOCARDIOGRAM REPORT PRIMARY PHYSICIAN: OTHER PHYSICIAN: REFERRING PHYSICIAN: ORDERING PHYSICIAN: ATTENDING PHYSICIAN: Dr. Kandi Cabrera FAMILY PHYSICIAN: PERFORMING PHYSICIAN: Dr. Manpreet Vazquez INDICATION FOR THE PROCEDURE: 1. Chest pain. 2. Atrial fibrillation. MEASUREMENTS DERIVED VALUES LV DIAMETER (LAX) NORMALS NORMALS Diastolic (3.6-5.2) Eject. Fract. (60%+/-6%) Systolic (2.3-3.9) Diastolic Vol. % Shortening (0.22-0.42) Systolic Vol. Aortic Root IVS THICKNESS Diastolic (0.6-1.1) LVPW THICKNESS Diastolic (0.6-1.1) LA DIAMETER Systolic (2.1-3.7) FINDINGS: 1. Atrial fibrillation. 2. Left atrial diameter is normal. Left atrial diameter is 3.9 cm. 3. Aortic root is normal. 4. Left ventricular systolic function is preserved. LV EF is 55%. Mild concentric LVH is noted with diastolic intraventricular septal diameter of 1.2 cm. 5. There is no significant wall motion abnormalities. 6. Right heart dimensions are normal. 7. There is mild pericardial effusion. 8. Complete diastolic evaluation was not performed. 9. IVC was not well visualized. VALVULAR STRUCTURE OF THE HEART: There is mild tricuspid regurgitation with mild mitral regurgitation. There is trace aortic insufficiency noted. There is at least moderate to severe aortic stenosis. Aortic valve maximum velocity is 3.89 m/sec. Peak gradient is 61 mmHg and mean gradient is 35 mmHg. Aortic valve area by maximum velocity is 1 cm sq by VTI is 0.8 sq cm. CONCLUSION: 1. This is a technically difficult study and performed in atrial fibrillation. 2. LV function is normal with an EF of 55%. 3. There is mild concentric LVH noted. There is at least moderate to severe aortic stenosis. Maximum peak gradient is 61 mmHg and mean gradient is 35 mmHg. Aortic valve area by VTI is 0.8 cm sq by maximum velocity is 1 cm sq. 4. Clinical correlation is recommended. Job ID: [id number] Dictated Date: 08/24/2016 15:00:35 Oxygen Therapist Date: 08/25/2016 08:46:33 / lauren
[2016-08-25] MEDS ORDERED: FLUTICASONE NASAL SPRAY (FLONASE) 16 GM BTL NS SCH (09:00)
[2016-08-25 09:15] LABS: THYROID STIMULATING HORMONE 0.23 UIU/ML (0.35-4.94)
[2016-08-25] MEDS ORDERED: PERPHENAZINE PO SCH (11:00)
[2016-08-25] MEDS ORDERED: AMITRIPTYLINE PO SCH (11:00)
--- NOTE | 2016-08-25 12:57 | STRESS TEST ---
PROCEDURE PHYSICIAN: CELIA VAZQUEZ PHARMACOLOGICAL NUCLEAR STRESS TEST REPORT: DATE OF PROCEDURE: 08/24/2016 ATTENDING PHYSICIAN: Dr. Kandi Cabrera PERFORMING PHYSICIAN: Dr. Srinivas Vazquez DIAGNOSIS: Atrial fibrillation, chest pain. PROCEDURE DETAILS: The patient was brought to the stress lab after informed consent was taken. Lexiscan stress test was performed according to the protocol. 0.4 mg of Lexiscan was given intravenously. Low grade exercise was performed. Baseline EKG showed atrial fibrillation. Baseline heart rate was 128 bpm and blood pressure was 145/86 mmHg. Maximum heart rate was 147 bpm and blood pressure was 169/93 mmHg. The patient did not have any chest pain, ST-T abnormality, arrhythmias during the stress testing. The stress test was stopped secondary to completion of protocol. Radionuclear isotope was given at [facility]. 10.8 mCi of Myoview were given for rest imaging and 28.4 mCi of Myoview were given for stress imaging. Review of the perfusion imaging showed TID of 0.96 and EF of 60%. There was no perfusion abnormality on rest and stress imaging. Gated images show normal wall motion. CONCLUSION: 1. Pharmacological stress test is negative for ischemia. 2. There is no perfusion abnormalities on stress or rest imaging. Job ID: [id number] Dictated Date: 08/25/2016 10:49:12 Court Supervisor Date: 08/25/2016 12:49:43 / lupe
[2016-08-25] MEDS ORDERED: meTOprolol SUCCINATE 100 MG (TOPROL XL) TAB PO SCH (13:30)
--- NOTE | 2016-08-25 17:19 | Cardiology Progress Note ---
Cardiology SOAP Progress Note Subjective: No cardiac symptoms Objective: I&O/Vital Signs Vital Sign - Last 12Hours 08/25/16 08/25/16 08/25/16 08/25/16 06:00 07:00 08:00 08:00 Temp 98.6 99.1 Pulse 142 92 Resp 12 B/P (MAP) 126/87 Pulse Ox 89 93 O2 Delivery Room Air Room Air 08/25/16 08/25/16 08/25/16 08/25/16 09:00 11:15 11:30 11:45 Pulse 120 121 117 114 Resp 14 B/P (MAP) 124/95 Pulse Ox 95 94 92 96 O2 Delivery Room Air Room Air Room Air 08/25/16 08/25/16 08/25/16 08/25/16 12:00 12:15 12:15 12:30 Pulse 101 107 B/P (MAP) 116/77 Pulse Ox 93 93 95 O2 Delivery Room Air Room Air Room Air 08/25/16 08/25/16 08/25/16 08/25/16 12:45 13:00 13:00 13:30 Pulse 108 90 117 B/P (MAP) 106/72 Pulse Ox 94 96 O2 Delivery Room Air Room Air 08/25/16 08/25/16 08/25/16 08/25/16 13:45 14:00 14:15 14:30 Pulse 110 110 105 B/P (MAP) 137/86 112/63 Pulse Ox 95 95 94 O2 Delivery Room Air Room Air Room Air 08/25/16 08/25/16 08/25/16 08/25/16 14:45 15:00 15:15 15:30 Pulse 106 93 97 B/P (MAP) 125/62 Pulse Ox 94 95 94 O2 Delivery Room Air Room Air 08/25/16 08/25/16 08/25/16 08/25/16 15:45 15:59 16:00 16:08 Temp 99.1 Pulse 87 90 Resp 12 B/P (MAP) 126/87 111/87 Pulse Ox 95 93 93 O2 Delivery Room Air Room Air Intake and Output 08/25/16 00:00 Intake Total 1200 ml Output Total 700 ml Balance 500 ml Weight (Pounds): 165 Weight (Ounces): 1.0 Weight (Calculated Kilograms): [id number] Constitutional: No appears stated age, No AAO x 3, No apparent distress, No PERRL, No well-developed, No well-nourished, No other Respiratory: No accessory muscle use, No respiratory distress, No chest tender , No chest expansion is symmetric, No chest is bilaterally symmetric, No lungs clear to percussion, No lungs clear to auscultation, No crackles, No rhonchi, No rales, No stridor, No wheezing, No pleural rub, No other Cardiovascular: No regular rate-rhythm, irregularly irregular, No extra beats, No parasternal heave is noted, No JVD, No edema, No bradycardia, No tachycardia , No point of maximal impulse, No cardiac thrills are palpable, No S1 and S2, No gallop/S3, No gallop/S4, No diastolic murmur, No systolic murmur, No friction rub, No click, No other Gastrointestional: No tender, No soft, No round, No distended, No pulsatile mass, No organomegaly, No guarding, No rebound, No tenderness, No hernia, No mass, No audible bowel sounds, No abnormal bowel sounds, No abdominal bruits, No spleenomegaly, No other Extremities: No normal range of motion, No non-tender, No normal inspection, No pedal edema, No calf tenderness, No normal capillary refill, No pelvis stable , No calf tenderness, No inflammation, No pedal edema, No slow capillary refill , No swelling, No other, No abrasion, No clubbing, No cyanosis, No ecchymosis, No laceration, No no lower extremity edema bilateral, No significant edema, No tenderness, No wound Neurologic/Psychiatric: No certified welding inspector II-XII nml as tested, No no motor/sensory deficits, No alert, No normal mood/affect, No oriented x 3, No abnormal cerebellar tests, No abnormal certified welding inspector II-XII, No abnormal gait, No aphasia, No EOM palsy, No facial droop, No motor weakness, No sensory deficit, No depressed affect, No disoriented x 3, No other, No grossly intact, No power is 5/5 both on sides Skin: No normal color, No warm/dry, No cyanosis, No cool, No diaphoresis, No damp, No ecchymosis, No jaundice, No mottled, No pallor, No rash, No tattoos/ piercings, No ulcerations, No rash on exposed areas, No ulcerations on exposed areas, No other Results/Procedures: Labs Laboratory Tests 08/25/16 03:20: Thyroid Stimulating Hormone (TSH) 0.23L, Free Thyroxine 1.24 Microbiology 08/23/16 MRSA Screen - Final, Complete MRSA not isolated A/P: Assessment/Dx: 1. Atrial fibrillation, 2. Chest pain, 3. Coronary artery disease 4. Aortic stenosis Plan: new onset atrial fibrillation: Cardizem 240 mg twice a day. Eliquis for oral anti-coagulation. Heart rate in the morning was a little bit elevated so we started Toprol-XL 100 mg daily. Now her heart rate is between 80 and 90 bpm. Much better controlled. Chest pain: No perfusion abnormality on the nuclear stress test. Aortic stenosis: Echocardiogram showed moderate to severe aortic stenosis. She can be discharged home on Cardizem, Toprol-XL and Eliquis. She will follow- up in my office in the next 10 days. Further plan for atrial fibrillation and aortic stenosis will be discussed with her and family. Thank you for your consultation. Please call me if you have any questions. Manpreet Vazquez MD, FACP, FACC, FSCAI, FHRS, CCDS Interventional Cardiology Cardiac Electrophysiology Vascular Medicine and Endovascular Interventions Latisha VAZQUEZ MD Aug 25, 2016 5:19 pm
[2016-08-25] MEDS ORDERED: METO-274 PO (18:18)
[2016-08-25] MEDS ORDERED: DILT240C90 PO (18:18)
[2016-08-25] MEDS ORDERED: APIX5TAB PO (18:18)
--- NOTE | 2016-08-25 18:20 | Discharge Inst-Complex ---
PDI Med Rec & Follow Up Appt. New Medications: Apixaban (Eliquis) 5 Mg Tablet 5 MG PO BID for 30 Days, #60 TAB 6 Refills Diltiazem HCl (Diltiazem 24Hr Cd) 240 Mg Cap.er.24h 240 MG PO BID for 30 Days, #60 CAP 6 Refills Metoprolol Succinate (Metoprolol Succinate) 100 Mg Tab.er.24h 100 MG PO DAILY for 30 Days, #30 TAB 6 Refills Continued Medications: Alendronate Sodium (Alendronate Sodium) 70 Mg Tablet 70 MG PO WEEK Ascorbic Acid (Vitamin C) 1,000 Mg Tablet 1000 MG PO DAILY, TAB Cholecalciferol (Vitamin D3) (Vitamin D3) 1,000 Unit Capsule 1000 UNIT PO DAILY, CAP Cyanocobalamin (Vitamin B-12) (Vitamin B12) 5,000 Mcg Tab.rapdis 5000 MCG PO DAILY, TAB Fenofibrate Nanocrystallized (Tricor) 145 Mg Tablet 145 MG PO DAILY, TAB Fluticasone Propionate (Fluticasone Propionate) 16 Gm [place].susp 1 SPRAY NSEACH DAILY, SPRAY Folic Acid (Folic Acid) 0.4 Mg Tablet 0.4 MG PO DAILY, TAB Gluc/Renny-MSM#2/C/D3/Ruben/Born (Ocuwksatja-Bkxomujxfri-RYC Tab) 1 Each Tablet 1 TAB PO DAILY, TAB Levothyroxine Sodium (Synthroid) 100 Mcg Tablet 100 MCG PO DAILY, TAB Lysine HCl (l-Lysine) 500 Mg Tablet 1000 MG PO DAILY, TAB Omeprazole (Omeprazole) 40 Mg Capsule.dr 40 MG PO DAILY, CAP Perphenazine/Amitriptyline HCl (Perphen-Amitrip 2 mg-10 mg Tab) 1 Each Tablet 2 TAB PO DAILY Simvastatin (Simvastatin) 20 Mg Tablet 20 MG PO DAILY Sucralfate (Carafate) 1 Gm Tab 1 GM PO AC Vitamin E (Vitamin E) 400 Unit Capsule 400 UNIT PO DAILY, CAP Discontinued Medications: Atenolol (Atenolol) 25 Mg Tablet 25 MG PO DAILY Enalapril Maleate (Enalapril Maleate) 10 Mg Tablet 10 MG PO DAILY Metronidazole (Metronidazole) 500 Mg Tablet 500 MG PO TID FILLED 08/16/16 #21 FOR A 7 DAY THERAPY / PATIENT STATES SHE ONLY HAD 2 TABLETS LEFT TO TAKE Prescription: Transmitted to Pharmacy ([facility]) Activity, Diet and PDI Resume Normal Activity: Yes Discharge Diet: Regular Diet Diet After 24 Hours: Clear Liquid if Nauseous Drink 6-8 Glasses of Fluid/Day: Yes Driving Instructions: No Driving for 24 Hours Return to The Hospital For: any concern for uncontrolled heart rate, dizziness, chest pain Symptoms to Reoprt to : Appetite Changes, Bleeding Excessive, Fever Over 101 Degrees F, Pain/Pressure in Chest, Heart Beat Irreg/Pounding, Shortness of Breath For Problems or Questions: Contact Your Physician, Go to Emergency Room Infection Signs and Symptoms: Temperature Above 101 F LUKE TANG MD Aug 25, 2016 18:20
--- NOTE | 2016-08-25 18:28 | Discharge Summary ---
Diagnosis/Chief Complaint Date of Admission Aug 23, 2016 at 01:55 Date of Discharge Discharge Date: Aug 25, 2016 Discharge Time: 1830 Admission Diagnosis Admission Diagnosis ATRIAL FIBRILLATION HYPONATREMIA HYPOMAGNESEMIA NAUSEA ESOPHAGEAL REFLUX ABDOMINAL PAIN Discharge Diagnosis ATRIAL FIBRILLATION HYPONATREMIA HYPOMAGNESEMIA NAUSEA ESOPHAGEAL REFLUX ABDOMINAL PAIN Reason Hospital Visit PT IS A 80 Y/O FEMALE WHO WAS RECENTLY HOSPITALIZED WITH ABDOMINAL PAIN AND PROBABLE DIVERTICULITIS. APPARENTLY THE PATIENT HAD PERSISTENT ABDOMINAL PAIN, NAUSEA, AND LOOSE STOOLS. THE PATIENT REPORTS THAT SHE WAS HAVING TROUBLE KEEPING DOWN FOOD/FLUIDS. SHE REPORTS THAT THE NIGHT BEFORE SHE WAS HOSPITALIZED SHE HAD A SENSATION OF DISCOMFORT IN HER CENTRAL CHEST AND A BURNING SENSATION WITH THE NAUSEA. SHE REPORTS THAT SHE HAD A "WEIRD SENSATION" IN HER CHEST LAST NIGHT BEFORE COMING TO THE HOSPITAL. Discharge Summary Discharge Physical Examination Allergies: Coded Allergies: Sulfa (Sulfonamide Antibiotics) (Verified Adverse Reaction, Mild, RASH, ) Vitals & I&Os Vital Signs Date Time Temp Pulse Resp B/P (MAP) Pulse Ox O2 Delivery O2 Flow Rate FiO2 08/25/16 17:34 78 16 110/74 Room Air 08/25/16 16:08 93 08/25/16 15:59 99.1 08/25/16 05:00 2.00 08/23/16 03:59 96 General Appearance: Alert, Oriented X3, Cooperative, No Acute Distress HEENT: Atraumatic, PERRLA Respiratory: Clear to Auscultation Cardiovascular: Other (irregularly irregular) Abdominal: Normal Bowel Sounds, Soft, No Tenderness Extremities: No Clubbing, No Cyanosis Skin: No Rashes, No Breakdown Neuro: Cranial Nerves 3-12 NL Psych/Mental Status: Mental Status NL, Mood NL Hospital Course ATRIAL FIBRILLATION HYPONATREMIA HYPOMAGNESEMIA NAUSEA ESOPHAGEAL REFLUX ABDOMINAL PAIN PT ADMITTED TO THE HOSPITAL TO THE CARDIAC STEPDOWN UNIT - DR. RAMIREZ WAS CONTACTED BY THE EMERGENCY DEPARTMENT PHYSICIAN LAST NIGHT FOR CONSULTATION THIS MORNING. PT ON CARDIZEM DRIP. DEFER TREATMENT OF HEART RELATED ISSUES TO THE SECOND CRUSHER. pt was admitted to the stepdown unit, started on cardizem drip, anticoagulant, and then cardizem orally with minimal improvement in symptoms. pt then started on metoprolol orally. HYPONATREMIA AND HYPOMAGNESEMIA - REPLENISHED WITH IV FLUIDS AND IV MAGNESIUM. NAUSEA AND ABDOMINAL PAIN - CHECK SCAN OF ABDOMEN IF PAIN DOES NOT IMPROVE WITH HYDRATION. GERD - START PROTONIX IV. Discharge Condition at discharge improved Instructions to patient/family Please see electonic discharge instructions given to patient. Discharge Medications Reviewed and agree with Discharge Medication list on patient's Discharge Instruction sheet Clinical Quality Measures DVT/VTE Risk/Contraindication: Risk Factor Score Per Nursin RFS Level Per Nursing on Admit: 4+=Very High LUKE TANG MD Aug 25, 2016 18:28
[2016-08-26] MEDS ORDERED: meTOprolol SUCCINATE 100 MG (TOPROL XL) TAB PO SCH (09:00)
--- OUTSIDE RECORDS SUMMARY | 2016-09-26 05:05 | XMS REPORT | Continuity of Care Document ---
Author Author [facility] Organization 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 04/14/2011 Ot 948.00 BDY BRN < 10%/3D DEG NOS 04/14/2011 Ot E000.8 OTHER EXTERNAL CAUSE STATUS 04/14/2011 Ot E849.0 ACCIDENT IN HOME 04/14/2011 Ot E924.8 HOT SUBSTANCE ACCID NEC 04/14/2011 Ot V06.1 [id number], COMBINED [ 11/26/2011 Ot 272.4 HYPERLIPIDEMIA NEC/NOS 11/26/2011 Ot 401.9 HYPERTENSION NOS 11/26/2011 Ot 414.01 CORONARY ATHEROSCLEROSIS OF [place] CORON 11/26/2011 Ot 562.10 DIVERTICULOSIS COLON (W/O [...] NOS 12/30/2011 Ot 414.01 CORONARY ATHEROSCLEROSIS OF [place] CORON 12/30/2011 Ot 530.81 ESOPHAGEAL REFLUX 12/30/2011 [...] MD, Ot I25.10 ATHSCL HEART DISEASE OF [place] CORONARY 08/25/2016 LUKE TANG MD Ot I25.2 [...] Status Pt. Type Provider Facility Loc./Unit Complaint [id number] 08/23/2016 01:55:00 2016 18:40:00 DIS Inpatient LUKE TANG MD [facility] ICU A-FIB W/RVR, CHEST PAIN [id number] 08/15/2016 15:42:00 2016 15:30:00 DIS Inpatient LUKE TANG MD [facility] 4TH WEAKNESS,HYPONATREMIA,UTI [id number] 07/19/2013 15:25:00 2013 23:59:59 CLS Outpatient JEREMIAH MOTTA MD [facility] RAD SCREENING [id number] 08/12/2016 14:23:00 ACT Outpatient FROYLAN OSORIO [facility] RAD LOW BACK PAIN [id number] 07/25/2014 11:10:00 Document Registration [id number] 06/12/2012 10:20:00 Document Registration [id number] 12/27/2011 13:28:00 Document Registration [id number] 12/13/2011 09:03:00 Document Registration [id number] 12/08/2011 13:33:00 Document Registration [id number] 11/22/2011 15:26:00 Document Registration [id number] 04/14/2011 16:49:00 Document Registration
--- OUTSIDE RECORDS SUMMARY | 2016-09-26 05:22 | XMS REPORT | Continuity of Care Document ---
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 04/14/2011 Ot 948.00 BDY BRN < 10%/3D DEG NOS 04/14/2011 Ot E000.8 OTHER EXTERNAL CAUSE STATUS 04/14/2011 Ot E849.0 ACCIDENT IN HOME 04/14/2011 Ot E924.8 HOT SUBSTANCE ACCID NEC 04/14/2011 Ot V06.1 [id number], COMBINED [ 11/26/2011 Ot 272.4 HYPERLIPIDEMIA NEC/NOS 11/26/2011 Ot 401.9 HYPERTENSION NOS 11/26/2011 Ot 414.01 CORONARY ATHEROSCLEROSIS OF [place] CORON 11/26/2011 Ot 562.10 DIVERTICULOSIS COLON (W/O [...] NOS 12/30/2011 Ot 414.01 CORONARY ATHEROSCLEROSIS OF [place] CORON 12/30/2011 Ot 530.81 ESOPHAGEAL REFLUX 12/30/2011 [...] MD, Ot I25.10 ATHSCL HEART DISEASE OF [place] CORONARY 08/25/2016 LUKE TANG MD Ot I25.2 [...] Status Pt. Type Provider Facility Loc./Unit Complaint [id number] 08/23/2016 01:55:00 2016 18:40:00 DIS Inpatient LUKE TANG MD [facility] ICU A-FIB W/RVR, CHEST PAIN [id number] 08/15/2016 15:42:00 2016 15:30:00 DIS Inpatient LUKE TANG MD [facility] 4TH WEAKNESS,HYPONATREMIA,UTI [id number] 07/19/2013 15:25:00 2013 23:59:59 CLS Outpatient JEREMIAH MOTTA MD [facility] RAD SCREENING [id number] 08/12/2016 14:23:00 ACT Outpatient FROYLAN OSORIO [facility] RAD LOW BACK PAIN [id number] 07/25/2014 11:10:00 Document Registration [id number] 06/12/2012 10:20:00 Document Registration [id number] 12/27/2011 13:28:00 Document Registration [id number] 12/13/2011 09:03:00 Document Registration [id number] 12/08/2011 13:33:00 Document Registration [id number] 11/22/2011 15:26:00 Document Registration [id number] 04/14/2011 16:49:00 Document Registration
== END 2016-08-25 18:40 | disposition home or self-care (01) | DRG 309 ==
LOC: EDUNIT# 23:46 → ER 23:47 → ICU 08-23 01:55 → ENPENDDIS 08-25 18:30
PROVIDERS: ADMIT Family Medicine; ATTEND Family Medicine
DX: I48.91 Unspecified atrial fibrillation (principal); R07.9 Chest pain, unspecified; I25.10 Atherosclerotic heart disease of native coronary artery without angina pectoris; E87.1 Hypo-osmolality and hyponatremia; I35.0 Nonrheumatic aortic (valve) stenosis; R10.9 Unspecified abdominal pain; R11.0 Nausea; F17.210 Nicotine dependence, cigarettes, uncomplicated; I10 Essential (primary) hypertension; E78.00 Pure hypercholesterolemia, unspecified; K21.9 Gastro-esophageal reflux disease without esophagitis; E03.9 Hypothyroidism, unspecified; E83.42 Hypomagnesemia; Z87.11 Personal history of peptic ulcer disease; Z87.19 Personal history of other diseases of the digestive system; F41.9 Anxiety disorder, unspecified; I25.2 Old myocardial infarction
CPT/HCPCS: 36415; 71010; 78452; 80048; 80053; 80061; 83735; 83874; 84100; 84439; 84443; 84484; 85025; 85027; 85610; 85730; 87081; 93005; 93017; 93041; 93306; 96365; 96375

== ENCOUNTER → 2017-01-26 | Outpatient (CLI) | payer MEDICARE ==
[~2017-01-26] MED LIST changes: +APIX5TAB PO; +DILT240C90 PO; +FLUT16SP22 NSEACH; +METO-395 PO; +METR500T21 PO
--- NOTE | 2017-01-26 16:35 | Diagnostic Imaging Report ---
CLINICAL INDICATION: Patient with cough. EXAM: Chest x-ray, PA and lateral views. COMPARISON: Chest x-ray dated 08/25/2016. FINDINGS: LUNGS/PLEURA: There is interval improved aeration of both lung gao. The lungs are clear. There is no pneumothorax. There is no pleural effusion. MEDIASTINUM: Unremarkable. PULMONARY VASCULATURE: Unremarkable. HEART: The heart size is within normal limits. There is interval placement of a cardiac pacemaker overlying the left chest with two leads projecting over the heart. BONES/EXTRATHORACIC SOFT TISSUE: There are moderately hypertrophic degenerative osteophytes scattered throughout the thoracic spine. There is a compression fracture deformity with kyphoplasty changes involving the lower thoracic spine region. There is excessive kyphosis of the thoracic spine centered at the region. IMPRESSION: 1. There is no radiographic evidence of acute cardiopulmonary process. There is no pneumothorax. 2. There is interval placement of a pacemaker which appears to be in good position. 3. The results of this report were relayed to the legal secretary working with Dr. Kandi Cabrera via the telephone on 01/26/2017 at 1425 hours. Dictated by: Dictated on workstation # [id number]
== END ==
LOC: RAD 13:09
PROVIDERS: ATTEND Family Medicine
DX: R05 Cough (principal); Z95.0 Presence of cardiac pacemaker
CPT/HCPCS: 71020

== ENCOUNTER → 2017-02-02 | Outpatient (CLI) | payer MEDICARE ==
[~2017-02-02] MED LIST changes: +CATHETER FLUSH 10 ML SYR IV PRN; +IOHEXOL 350 MG/ML 100 ML (OMNIPAQUE 350) VIAL IV ONE; +NS 100 ML (IVPB) BAG IV ONE
[2017-02-02 11:30] LABS: ALBUMIN 3.7 GM/DL (3.2-4.5); BILIRUBIN,TOTAL 0.5 MG/DL (0.1-1.0); CALCIUM 9.8 MG/DL (8.5-10.1); CREATININE SERUM 1.1 MG/DL (0.60-1.30); POTASSIUM 4.6 MMOL/L (3.6-5.0); TOTAL PROTEIN 7.5 GM/DL (6.4-8.2)
--- NOTE | 2017-02-02 12:34 | Diagnostic Imaging Report ---
INDICATION: Trouble walking. Gait imbalance. Weakness. TECHNIQUE: Routine pre-and postcontrast-enhanced axial images were obtained from the skull base to the vertex. COMPARISON: None. FINDINGS: The ventricles and cortical sulci are diffusely prominent, compatible with age-related volume loss. There are confluent areas of abnormal, low attenuation in the periventricular white matter. This is consistent with small vessel ischemic changes; age-indeterminate. There is no prior study available for comparison. Postcontrast images show no abnormal areas of enhancement. There is no midline shift or mass-effect. No acute intra-axial hemorrhage is seen. There are no abnormal areas of increased or decreased density to suggest acute hemorrhage or edema. No extra-axial masses or collections are present. The bony calvarium is intact. The visualized paranasal sinuses are unremarkable. The mastoid air cells are clear. IMPRESSION: 1. No acute intracranial abnormality. No CT evidence of mass, acute infarct or intracranial hemorrhage. 2. Small vessel ischemic changes in the periventricular and subcortical white matter; likely chronic. Dictated by: Dictated on workstation # [id number]
== END ==
LOC: RAD 10:16
PROVIDERS: ATTEND Nurse Practitioner Family
DX: R26.9 Unspecified abnormalities of gait and mobility (principal); R41.3 Other amnesia; R32 Unspecified urinary incontinence; R53.1 Weakness
CPT/HCPCS: 36415; 70470; 80053

== ENCOUNTER → 2017-04-20 | Outpatient (CLI) | payer MEDICARE ==
[~2017-04-20] MED LIST changes: -CATHETER FLUSH 10 ML SYR IV PRN; -IOHEXOL 350 MG/ML 100 ML (OMNIPAQUE 350) VIAL IV ONE; -NS 100 ML (IVPB) BAG IV ONE; +RT-ALBUTEROL SULF 2.5 MG/3 ML PRE-MIX VIAL IH ONE
== END ==
LOC: RT 13:59
PROVIDERS: ATTEND Family Medicine
DX: R06.09 Other forms of dyspnea (principal); Z87.891 Personal history of nicotine dependence
CPT/HCPCS: 94060; 94726; 94729

== ENCOUNTER 2017-06-13 12:48 | Outpatient (RCR) | payer MEDICARE ==
[2017-06-01 14:27] VITALS: BP 117/48
[2017-06-03] MEDS: IRON SUCROSE 300 MG/NS 250 ML (IVPB) IV SCH ×2 (13:17)
[2017-06-03 13:19] VITALS: BP 144/67
[2017-06-03 14:51] VITALS: BP 144/67
[2017-06-08] MEDS: IRON SUCROSE 300 MG/NS 250 ML (IVPB) IV SCH ×4 (11:16→13:17)
[2017-06-08 12:45] VITALS: BP 117/59
[2017-06-08] MEDS: ACETAMINOPHEN 500 MG TAB (TYLENOL) PO SCH (12:55)
[2017-06-08] MEDS: diphenhydrAMINE 50 MG/ML INJ (BENADRYL) IV SCH (13:00)
[2017-06-10 12:50] VITALS: BP 137/73
[2017-06-10] MEDS: ACETAMINOPHEN 500 MG TAB (TYLENOL) PO SCH (13:05)
[2017-06-10] MEDS: diphenhydrAMINE 50 MG/ML INJ (BENADRYL) IV SCH (13:05)
[2017-06-10] MEDS: IRON SUCROSE 300 MG/NS 250 ML (IVPB) IV SCH ×2 (13:35)
[~2017-06-13] VITALS: Ht 152.4 cm; Wt 68.5 kg
[~2017-06-13 12:48] MED LIST changes: +ACETAMINOPHEN 500 MG TAB (TYLENOL) ONE; +ACETAMINOPHEN 500 MG TAB (TYLENOL) PO ONE; +FURO20TA4 PO; +IRON SUCROSE 250 MG/NS 100 ML IVPB IV NR; -RT-ALBUTEROL SULF 2.5 MG/3 ML PRE-MIX VIAL IH ONE; +diphenhydrAMINE 50 MG/ML INJ (BENADRYL) IVP ONE; +diphenhydrAMINE 50 MG/ML INJ (BENADRYL) ONE
[2017-06-13 13:05] VITALS: BP 124/67
[2017-06-13] MEDS: IRON SUCROSE 300 MG/NS 250 ML (IVPB) IV SCH ×4 (13:20→13:28)
[2017-06-13] MEDS: diphenhydrAMINE 50 MG/ML INJ (BENADRYL) IV SCH (13:25)
[2017-06-13] MEDS: ACETAMINOPHEN 500 MG TAB (TYLENOL) PO SCH (13:25)
== END 2017-08-30 | disposition home or self-care (01) ==
LOC: SDC 12:48
PROVIDERS: ATTEND Family Medicine
DX: D50.9 Iron deficiency anemia, unspecified (principal)
CPT/HCPCS: 96365; 96366; 96375

== ENCOUNTER → 2017-09-21 | Outpatient (RCR) | payer MEDICARE ==
[~2017-09-21] MED LIST changes: -ACETAMINOPHEN 500 MG TAB (TYLENOL) ONE; -ACETAMINOPHEN 500 MG TAB (TYLENOL) PO ONE; -IRON SUCROSE 250 MG/NS 100 ML IVPB IV NR; -diphenhydrAMINE 50 MG/ML INJ (BENADRYL) IVP ONE; -diphenhydrAMINE 50 MG/ML INJ (BENADRYL) ONE
== END | disposition home or self-care (01) ==
LOC: CR3 08-22 11:00
PROVIDERS: ATTEND Family Medicine
DX: Z29.8 Encounter for other specified prophylactic measures (principal)

== ENCOUNTER 2017-10-21 15:10 | Outpatient (RCR) | payer MEDICARE | END 2017-10-23 | disposition home or self-care (01) | LOC: CR3 15:10 | PROVIDERS: ATTEND Family Medicine | DX: Z29.8 Encounter for other specified prophylactic measures (principal) ==

== ENCOUNTER 2017-11-16 16:44 | Outpatient (RCR) | payer MEDICARE ==
[2017-11-21] MEDS ORDERED: CALC600T12 PO ×2 (15:09)
[2017-11-21] MEDS ORDERED: DILT180C90 PO ×2 (15:09)
[2017-11-21] MEDS ORDERED: POTA10TA10 PO ×2 (15:09)
[2017-11-21] MEDS ORDERED: LORA10CA PO ×2 (15:09)
[2017-11-21] MEDS ORDERED: SUCR1TAB PO ×2 (15:09)
[2017-11-21] MEDS ORDERED: DIPH25CA79 PO ×2 (15:09)
[2017-11-21] MEDS ORDERED: SOTA80TA PO ×2 (15:09)
== END 2017-11-23 | disposition home or self-care (01) ==
LOC: CR3 16:44
PROVIDERS: ATTEND Family Medicine
DX: Z29.8 Encounter for other specified prophylactic measures (principal)

== ENCOUNTER 2017-11-21 05:42 | Outpatient (CLI) | payer MEDICARE ==
[~2017-11-21] VITALS: Ht 152.4 cm; Wt 68.5 kg
[2017-11-21] MEDS ORDERED: SOTA80TA PO (15:09)
[2017-11-21] MEDS ORDERED: SUCR1TAB PO (15:09)
[2017-11-21] MEDS ORDERED: CALC600T12 PO (15:09)
[2017-11-21] MEDS ORDERED: LORA10CA PO (15:09)
[2017-11-21] MEDS ORDERED: POTA10TA10 PO (15:09)
[2017-11-21] MEDS ORDERED: DIPH25CA79 PO (15:09)
[2017-11-21] MEDS ORDERED: DILT180C90 PO (15:09)
== END 2017-11-21 15:12 ==
LOC: PREOP 05:42
PROVIDERS: ATTEND Surgery
DX: Z01.818 Encounter for other preprocedural examination (principal)

== ENCOUNTER 2017-11-28 07:30 | Day surgery (SDC) | payer MEDICARE ==
[~2017-11-28] VITALS: Ht 152.4 cm; Wt 68.5 kg
[~2017-11-28 07:30] MED LIST changes: +CALC600T12 PO; +DILT180C90 PO; +DIPH25CA79 PO; +LORA10CA PO; +POTA10TA10 PO; +SOTA80TA PO; +SUCR1TAB PO
[2017-11-28] MEDS ORDERED: NS IV 500 ML 500 ML ONE (07:31)
[2017-11-28] MEDS ORDERED: NS IV 500 ML 500 ML IV PRN (07:39)
[2017-11-28 07:47] VITALS: BP 146/69
--- NOTE | 2017-11-28 08:42 | History & Physicial ---
History of Present Illness History of Present Illness Reason for visit/HPI To undergo colonoscopy to investigate new onset of diarrhea. No family history of polyps Date of Admission 11/28/17 Date Seen by Provider: Nov 28, 2017 Time Seen by Provider: 07:55 I consulted on this patient on 11/28/17 08:38 Attending Physician Lorenzo Morrison MD Admitting Physician Luke Cabrera MD Consult Allergies and Home Medications Allergies Coded Allergies: Sulfa (Sulfonamide Antibiotics) (Verified Adverse Reaction, Mild, RASH, 11/21/17) Home Medications Alendronate Sodium 70 Mg Tablet, 70 MG PO WEEK, (Reported) Apixaban 5 Mg Tablet, 5 MG PO BID Prescribed by: LUKE CABRERA on 08/25/168 Ascorbic Acid 1,000 Mg Tablet, 1,000 MG PO DAILY, (Reported) Calcium Carbonate 600 Mg Tablet, 600 MG PO DAILY, (Reported) Cholecalciferol (Vitamin D3) 1,000 Unit Capsule, 1,000 UNIT PO DAILY, (Reported) Cyanocobalamin (Vitamin B-12) 5,000 Mcg Tab.rapdis, 5,000 MCG PO DAILY, ( Reported) Diltiazem HCl 180 Mg Cap.er.24h, 180 MG PO DAILY, (Reported) Diphenhydramine HCl 25 Mg Capsule, 50 MG PO HS, (Reported) Fenofibrate Nanocrystallized 145 Mg Tablet, 145 MG PO DAILY, (Reported) Fluticasone Propionate 16 Gm [place].susp, 1 SPRAY NSEACH DAILY, (Reported) Folic Acid 0.4 Mg Tablet, 0.4 MG PO DAILY, (Reported) Furosemide 20 Mg Tablet, 20 MG PO DAILY, (Reported) Gluc/Renny-MSM#2/C/D3/Ruben/Born 1 Each Tablet, 1 TAB PO DAILY, (Reported) Levothyroxine Sodium 100 Mcg Tablet, 100 MCG PO DAILY, (Reported) Loratadine 10 Mg Capsule, 10 MG PO DAILY, (Reported) Lysine HCl 500 Mg Tablet, 1,000 MG PO DAILY, (Reported) Omeprazole 40 Mg Capsule.dr, 40 MG PO DAILY, (Reported) Perphenazine/Amitriptyline HCl 1 Each Tablet, 2 TAB PO DAILY, (Reported) Potassium Chloride 10 Meq Tablet.er, 10 MEQ PO DAILY, (Reported) Simvastatin 20 Mg Tablet, 20 MG PO DAILY, (Reported) Sotalol HCl 80 Mg Tablet, 80 MG PO BID, (Reported) Sucralfate 1 Gm Tablet, 1 GM PO TID, (Reported) Vitamin E 400 Unit Capsule, 400 UNIT PO DAILY, (Reported) Patient Home Medication List Home Medication List Reviewed: Yes Past Hpycvxg-Fkwwqd-Freras Hx Patient Social History Marrital Status: Employed/Student: retired Alcohol Use: Denies Use Recreational Drug Use: No Smoking Status: Current Everyday Smoker Type Used: Cigarettes 2nd Hand Smoke Exposure: No Recent Foreign Travel: No Contact w/other who traveled: No Recent Hopitalizations: No Immunizations Up To Date Tetanus Booster (TDap): Unknown Date of Pneumonia Vaccine: Mar 07, 2017 Date of Influenza Vaccine: Mar 07, 2017 Seasonal Allergies Seasonal Allergies: Yes Surgeries Yes Gallbladder, Hysterectomy Respiratory No Cardiovascular Yes (ANGIOPLAST W/ STENT) Heart Attack, High Cholesterol, Hypertension Neurological No Reproductive System Hx Reproductive Disorders: No Sexually Transmitted Disease: No HIV/AIDS: No Female Reproductive Disorders: Denies 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, 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 Genitourinary Yes UTI-Chronic Gastrointestinal Yes Gastroesophageal Reflux, Diverticulosis, Ulcer Musculoskeletal Yes (KYPOPLASTY NOVEMBER 2011 L1) Arthritis Endocrine History of Endocrine Disorders: Yes Endocrine Disorders: Hypothyroidsim HEENT History of HEENT Disorders: No Loss of Vision: Denies Hearing Impairment: Hard of Hearing Cancer No Psychosocial History of Psychiatric Problem: No Integumentary History of Skin or Integumenta: No Blood Transfusions History of Blood Disorders: No Adverse Reaction to a Blood Tr: No Family Medical History Significant Family History: Heart Disease, Hypertension Family Hx: Cardiovascular disease 19 FATHER 19 MOTHER G8 BROTHER Hypertension 19 FATHER G8 BROTHER Constitutional: no symptoms reported EENTM: no symptoms reported Respiratory: no symptoms reported Cardiovascular: no symptoms reported Gastrointestinal: see HPI Genitourinary: no symptoms reported Musculoskeletal: no symptoms reported Skin: no symptoms reported Psychiatric/Neurological: No Symptoms Reported Physical Exam Vital Signs Vital Signs - First Documented 11/28/17 07:47 Temp 98.4 Pulse 65 Resp 18 B/P (MAP) 146/69 (94) Pulse Ox 94 Capillary Refill : Height, Weight, BMI Height: 5', 0.00" Weight: 151lbs 1.0oz, [id number] Method:Stated ,29.5BMI General Appearance: No Apparent Distress Neck: Normal Inspection Respiratory: Lungs Clear Cardiovascular: Regular Rate, Rhythm Gastrointestinal: Non Tender, Soft Rectal: Deferred Back: Normal Inspection Neurologic/Psychiatric: Alert, Oriented x3 Skin: Warm/Dry Assessment/Plan Assessment and Plan Lady with new onset of diarrhea. Previous history of diverticulosis. For colonoscopy Admission Diagnosis Admission Status: Other (Outpt Proc) LORENZO MORRISON MD Nov 28, 2017 8:42 am
--- NOTE | 2017-11-28 08:42 | Conscious Sedation/ASA ---
Conscious Sedation Pre-Proced Time Reviewed: 07:57 ASA Class: 2 Airway Mallampati Classification: ([place] appropriate class) I. II. III, IV Lungs Heart ASA score ASA 1: a normal healthy patient ASA 2: a patient with a mild systemic disease (mid diabetes, controlled hypertension, obesity ASA 3: a patient with a severe systemic disease that limits activity (angina , COPD, prior Myocardial infarction) ASA 4: a patient with an incapacitating disease that is a constant threat to life (CHF, renal failure) ASA 5: a moribund patient not expected to survive 24 hrs. (ruptured aneurysm) ASA 6: a declared brain patient whose organs are being harvested. For emergent operations, add the letter E after the classification Grade 1 Sedation Plan: Discussed options with patient/fam Note The patient is an appropriate candidate to undergo the planned procedure, sedation, and anesthesia. The patient immediately re-assessed prior to indication. MONALISA MORRISON MD Nov 28, 2017 8:42 am
[2017-11-28] MEDS ORDERED: fentaNYL INJECTION 100 MCG/2 ML AMP ONE (08:43)
[2017-11-28] MEDS ORDERED: MIDAZOLAM 2 MG/2 ML (VERSED) VIAL ONE ×4 (08:43)
[2017-11-28] MEDS: MIDAZOLAM 2 MG/2 ML (VERSED) VIAL IV PRN ×2 (08:52→08:58)
[2017-11-28] MEDS: fentaNYL INJECTION 100 MCG/2 ML AMP IV PRN ×2 (08:53→08:59)
--- NOTE | 2017-11-28 09:16 | Endo Procedure Record ---
Endo Procedure Report Date of Procedure Last Colonoscopy: Yes (2009?) Nov 28, 2017 Surgeon (s) MONALISA MORRISON MD Post Procedure/Op Diagnosis Severe sigmoid diverticulosis, limiting a full examination Procedure Performed Incomplete colonoscopy/flexible sigmoidoscopy Description of Procedure Anesthesia Type: Conscious Sedation Specimen(s) collected/removed None Description of the Procedure Indication for the procedure: This lady came in for colonoscopy to evaluate new onset of diarrhea. She is known to have had severe sigmoid diverticulosis, based on an examination from 10 years ago. Informed consent was obtained after reviewing the procedure in detail. Description of the procedure: She was placed in left lateral decubitus position and her vital signs were monitored. Conscious sedation was achieved using Versed and fentanyl. Digital rectal examination was unremarkable. The flexible colonoscope was then introduced into the rectum and advanced to the mid sigmoid colon. Despite multiple attempts, further examination could not be completed due to lack of distention and fibrosis of the sigmoid colon. Finding: Severe sigmoid diverticulosis to the level of examination. She tolerated the procedure well and was taken back to the nursing area in a stable condition. Impression: New-onset of diarrhea. Severe sigmoid diverticulosis with a possible stricture. CT scan with rectal contrast pending Copy Copies To 1: LUKE TANG MD, XAVIER M MD Nov 28, 2017 9:16 am
--- NOTE | 2017-11-28 09:18 | Discharge Inst-Simple/Standard ---
Discharge Inst-Standard Discharge Medications New, Converted or Re-Newed RX: Other Patient Instructions/Follow Up Plan of Care/Instructions/FU: Please schedule CT of abdomen and pelvis with rectal contrast today Activity as Tolerated: Yes Discharge Diet: No Restrictions MONALISA MORRISON MD Nov 28, 2017 9:17 am
[2017-11-28 09:35] VITALS: BP 118/56
[2017-11-28 10:05] VITALS: BP 119/57
[2017-11-28 12:45] VITALS: BP 119/57
[2017-11-28 12:48] VITALS: BP 119/57
== END 2017-11-28 12:48 | disposition home or self-care (01) ==
LOC: ENDO 07:30
PROVIDERS: ATTEND Surgery
DX: R19.7 Diarrhea, unspecified (principal); K57.30 Diverticulosis of large intestine without perforation or abscess without bleeding; I10 Essential (primary) hypertension; F17.210 Nicotine dependence, cigarettes, uncomplicated; I25.2 Old myocardial infarction; Z95.5 Presence of coronary angioplasty implant and graft; Z79.01 Long term (current) use of anticoagulants; Z79.899 Other long term (current) drug therapy

== ENCOUNTER 2017-12-21 14:23 | Outpatient (RCR) | payer MEDICARE | END 2017-12-25 | disposition home or self-care (01) | LOC: CR3 14:23 | PROVIDERS: ATTEND Family Medicine | DX: Z29.8 Encounter for other specified prophylactic measures (principal) ==

== ENCOUNTER → 2018-01-27 | Outpatient (RCR) | payer MEDICARE | END | disposition home or self-care (01) | LOC: CR3 12-28 15:00 | PROVIDERS: ATTEND Family Medicine | DX: Z29.8 Encounter for other specified prophylactic measures (principal) ==

== ENCOUNTER 2018-02-10 15:03 | Outpatient (RCR) | payer MEDICARE ==
[~2018-02-10 15:03] MED LIST changes: +FLUT16SP22 NS; -FLUT16SP22 NSEACH
[2018-02-27] MEDS ORDERED: POTA10TA14 PO ×2 (09:04)
[2018-02-27] MEDS ORDERED: APIX5TAB PO ×2 (09:04)
[2018-02-27] MEDS ORDERED: CYAN500T44 PO ×2 (09:04)
[2018-02-27] MEDS ORDERED: DIPH25CA6 PO ×2 (09:04)
[2018-02-27] MEDS ORDERED: FENO145T37 PO ×2 (09:04)
[2018-02-27] MEDS ORDERED: LACT1CAP39 PO ×2 (09:04)
[2018-02-27] MEDS ORDERED: DILT180C PO ×2 (09:04)
[2018-02-27] MEDS ORDERED: CHOL20003 PO ×2 (09:04)
[2018-02-27] MEDS ORDERED: CIPR500T4 PO ×2 (09:11)
[2018-02-27] MEDS ORDERED: PRD20T PO ×2 (09:11)
[2018-03-01] MEDS ORDERED: DILT120C63 PO ×2 (09:43)
[2018-03-01] MEDS ORDERED: SOTA80TA PO ×2 (10:08)
== END 2018-03-03 | disposition home or self-care (01) ==
LOC: CR3 15:03
PROVIDERS: ATTEND Family Medicine
DX: Z29.8 Encounter for other specified prophylactic measures (principal)

== ENCOUNTER 2018-02-26 18:14 | Inpatient (IN) | payer MEDICARE ==
[2018-02-26] VITALS (7 sets, daily range): BP systolic 100–120; BP diastolic 44–57
[~2018-02-26] VITALS: Ht 162.6 cm; Wt 67.7 kg
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
--- NOTE | 2018-02-26 18:40 | ED Chest Pain ---
General Stated Complaint: CHEST PAIN Source: patient Exam Limitations: no limitations History of Present Illness Date Seen by Provider: Feb 26, 2018 Time Seen by Provider: 18:19 Initial Comments This 82-year-old woman with known coronary artery disease and paroxysmal atrial fibrillation presents to the emergency room with complaints of chest burning. She has had waxing and waning burning across the chest all day since waking. She also reports excessive belching. She is in atrial fibrillation with RVR on the monitor. She reports she is normally in a "normal" rhythm. She has a pacemaker and defibrillator. She reports an episode of dry heaving earlier today as well. Her gallbladder is surgically absent. She reports her blood pressure was low at home at 85/77. She reports yesterday was 107/75. She also reports some constipation recently. She was able to produce multiple solid bowel movements today that were "black and shiny." The more intense pain in her chest started at 17:00. She took nitroglycerin which did not help. She therefore decided to present to the emergency room. Pain is 3/10 at present. She took aspirin 325 mg 2 today. She had a recent visit to her doctor for back pain and suspected urinary tract infection. She was started on prednisone and Cipro on February 22. She takes Eliquis for stroke prophylaxis and diltiazem ER 180 mg for rhythm control. She had a stress test performed in August 2016 which was negative. An echo showed an EF of 55 percent. Allergies and Home Medications Allergies Coded Allergies: Sulfa (Sulfonamide Antibiotics) (Verified Adverse Reaction, Mild, RASH, 11/21/17) Home Medications Alendronate Sodium 70 Mg Tablet, 70 MG PO WEEK, (Reported) Apixaban 5 Mg Tablet, 5 MG PO BID Prescribed by: LUKE TANG on 08/25/16 1818 Ascorbic Acid 1,000 Mg Tablet, 1,000 MG PO DAILY, (Reported) Calcium Carbonate 600 Mg Tablet, 600 MG PO DAILY, (Reported) Cholecalciferol (Vitamin D3) 1,000 Unit Capsule, 1,000 UNIT PO DAILY, (Reported) Cyanocobalamin (Vitamin B-12) 5,000 Mcg Tab.rapdis, 5,000 MCG PO DAILY, ( Reported) Diltiazem HCl 180 Mg Cap.er.24h, 180 MG PO DAILY, (Reported) Diphenhydramine HCl 25 Mg Capsule, 50 MG PO HS, (Reported) Fenofibrate Nanocrystallized 145 Mg Tablet, 145 MG PO DAILY, (Reported) Fluticasone Propionate 16 Gm [place].susp, 1 SPRAY NSEACH DAILY, (Reported) Folic Acid 0.4 Mg Tablet, 0.4 MG PO DAILY, (Reported) Furosemide 20 Mg Tablet, 20 MG PO DAILY, (Reported) Gluc/Renny-MSM#2/C/D3/Ruben/Born 1 Each Tablet, 1 TAB PO DAILY, (Reported) Levothyroxine Sodium 100 Mcg Tablet, 100 MCG PO DAILY, (Reported) Loratadine 10 Mg Capsule, 10 MG PO DAILY, (Reported) Lysine HCl 500 Mg Tablet, 1,000 MG PO DAILY, (Reported) Omeprazole 40 Mg Capsule.dr, 40 MG PO DAILY, (Reported) Perphenazine/Amitriptyline HCl 1 Each Tablet, 2 TAB PO DAILY, (Reported) Potassium Chloride 10 Meq Tablet.er, 10 MEQ PO DAILY, (Reported) Simvastatin 20 Mg Tablet, 20 MG PO DAILY, (Reported) Sotalol HCl 80 Mg Tablet, 80 MG PO BID, (Reported) Sucralfate 1 Gm Tablet, 1 GM PO TID, (Reported) Vitamin E 400 Unit Capsule, 400 UNIT PO DAILY, (Reported) Patient Home Medication List Home Medication List Reviewed: Yes Review of Systems Review of Systems Constitutional: no symptoms reported EENTM: No Symptoms Reported Respiratory: No Symptoms Reported Cardiovascular: See HPI Gastrointestinal: See HPI Genitourinary: No Symptoms Reported Musculoskeletal: no symptoms reported Skin: no symptoms reported Psychiatric/Neurological: No Symptoms Reported Endocrine: No Symptoms Reported Hematologic/Lymphatic: No Symptoms Reported Past Jizetnw-Xpuepj-Pbhjkx Hx Past Med/Social Hx: Reviewed and Corrections made Patient Social History Type Used: Cigarettes 2nd Hand Smoke Exposure: No Recent Foreign Travel: No Contact w/Someone Who Travel: No Recent Hopitalizations: No Immunizations Up To Date Tetanus Booster (TDap): Unknown Date of Pneumonia Vaccine: Mar 07, 2017 Date of Influenza Vaccine: Mar 07, 2017 Seasonal Allergies Seasonal Allergies: Yes Past Medical History Surgeries: Yes Coronary Stent, Gallbladder, Hysterectomy Respiratory: No Cardiac: Yes (ANGIOPLAST W/ STENT) Atrial Fibrillation (paroxysmal with episodes of RVR), Heart Attack, High Cholesterol, Hypertension Neurological: No : No Reproductive Disorders: No Female Reproductive Disorders: Denies 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, 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 Sexually Transmitted Disease: No HIV/AIDS: No Genitourinary: Yes UTI-Chronic Gastrointestinal: Yes Gastroesophageal Reflux, Diverticulosis, Ulcer Musculoskeletal: Yes (KYPOPLASTY NOVEMBER 2011 L1) Arthritis Endocrine: Yes Hypothyroidsim HEENT: No Loss of Vision: Denies Hearing Impairment: Hard of Hearing Cancer: No Psychosocial: No Integumentary: No Blood Disorders: No Adverse Reaction/Blood Tranf: No Family Medical History Reviewed Nursing Family Hx Cardiovascular disease 19 FATHER 19 MOTHER G8 BROTHER Hypertension 19 FATHER G8 BROTHER Heart Disease, Hypertension Physical Exam Vital Signs Vital Signs - First Documented 02/26/18 18:17 Temp 98.6 Pulse 134 Resp 13 B/P (MAP) 105/78 (87) Pulse Ox 99 O2 Delivery Room Air Capillary Refill : Height, Weight, BMI Height: 5'0.00" Weight: 151lbs. 1.0oz. 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 Norm as Tested, Other (mentation somewhat dulled) Skin: Normal Color, Warm/Dry Progress/Results/Core Measures Results/Orders Lab Results Laboratory Tests Test 02/26/18 18:33 Range/Units White Blood Count 8.0 4.3-11.0 10^3/uL Red Blood Count 2.87 L 4.35-5.85 10^6/uL Hemoglobin 8.5 L 11.5-16.0 G/DL Hematocrit 27 L 35-52 % Mean Corpuscular Volume 92 80-99 FL Mean Corpuscular Hemoglobin 30 25-34 PG Mean Corpuscular Hemoglobin Concent 32 32-36 G/DL Red Cell Distribution Width 14.8 H 10.0-14.5 % Platelet Count 530 H 130-400 10^3/uL Mean Platelet Volume 9.3 7.4-10.4 FL Neutrophils (%) (Auto) 60 42-75 % Lymphocytes (%) (Auto) 21 12-44 % Monocytes (%) (Auto) 16 H 0-12 % Eosinophils (%) (Auto) 2 0-10 % Basophils (%) (Auto) 1 0-10 % Neutrophils # (Auto) 4.8 1.8-7.8 X 10^3 Lymphocytes # (Auto) 1.7 1.0-4.0 X 10^3 Monocytes # (Auto) 1.3 H 0.0-1.0 X 10^3 Eosinophils # (Auto) 0.2 0.0-0.3 10^3/uL Basophils # (Auto) 0.1 0.0-0.1 10^3/uL Neutrophils % (Manual) 60 % Lymphocytes % (Manual) 30 % Monocytes % (Manual) 9 % Eosinophils % (Manual) 1 % Hypersegmented Neutrophils MODERATE Polychromasia MODERATE Hypochromasia MARKED Stomatocytes SLIGHT Prothrombin Time 17.4 H 12.2-14.7 SEC INR Comment 1.4 0.8-1.4 Activated Partial Thromboplast Time 51 H 24-35 SEC Sodium Level 134 L 135-145 MMOL/L Potassium Level 4.6 3.6-5.0 MMOL/L Chloride Level 103 98-107 MMOL/L Carbon Dioxide Level 18 L 21-32 MMOL/L Anion Gap 13 5-14 MMOL/L Blood Urea Nitrogen 26 H 7-18 MG/DL Creatinine 1.08 0.60-1.30 MG/DL Estimat Glomerular Filtration Rate 49 BUN/Creatinine Ratio 24 Glucose Level 125 H 70-105 MG/DL Calcium Level 8.9 8.5-10.1 MG/DL Corrected Calcium 9.4 8.5-10.1 MG/DL Magnesium Level 2.1 1.8-2.4 MG/DL Total Bilirubin 0.3 0.1-1.0 MG/DL Aspartate Amino Transf (AST/SGOT) 27 5-34 U/L Alanine Aminotransferase (ALT/SGPT) 14 0-55 U/L Alkaline Phosphatase 39 L 40-136 U/L Myoglobin 45.7 10.0-92.0 NG/ML Troponin I < 0.30 <0.30 NG/ML B-Type Natriuretic Peptide 647.8 H <100.0 PG/ML Total Protein 6.5 6.4-8.2 GM/DL Albumin 3.4 3.2-4.5 GM/DL Thyroid Stimulating Hormone (TSH) 0.01 L 0.35-4.94 UIU/ML Free Thyroxine 1.24 0.70-1.48 NG/DL My Orders Orders - ALYSON SILVER MD Cbc With Automated Diff (02/26/18) Magnesium (02/26/18) Chest 1 View, Ap/Pa Only (02/26/18) Ekg Tracing (02/26/18) Cardiac Profile 1 (02/26/18) Comprehensive Metabolic Panel (02/26/18) Myoglobin Serum (02/26/18) Protime With Inr (02/26/18) Partial Thromboplastin Time (02/26/18) O2 (02/26/18) Monitor-Rhythm Ecg Trace Only (02/26/18) Lipid Panel (02/27/18 06:00) Saline Lock/Iv-Start (02/26/18) BNP (02/26/18:) Ua Culture If Indicated (02/26/18 18:) Thyroid Stimulating Hormone (02/26/18:) Free T4 (Free Thyroxine) (02/26/18:) Ns (Ivpb) (Sodium C... W/Diltiazem Iv Fo (02/26/18 18:30) Famotidine Injection (Pepcid Injection) (02/26/18 18:45) Manual Differential (02/26/18 18:33) Saline Lock/Iv-Start (02/26/18 19:11) Ns Iv 500 Ml (Sodium Chloride 0.9%) (02/26/18 19:11) Ondansetron Injection (Zofran Injectio (02/26/18 19:16) Fecal Occult Bedside (02/26/18 19:51) Diltiazem Cd 24 Hr Capsule (Cardizem Cd (02/26/18 20:00) Red Cells Leukocytes Reduced (02/26/18 20:15) Type And Screen (02/26/18 20:15) Medications Given in ED Current Medications Medications Dose Ordered Sig/Russ Route Start Time Stop Time Status Last Admin Dose Admin Diltiazem HCl 120 mg ONCE ONCE PO 02/26/18 20:00 02/26/18 20:01 DC 02/26/18 20:04 120 MG Famotidine 20 mg ONCE ONCE IVP 02/26/18 18:45 02/26/18 18:46 DC 02/26/18 19:01 20 MG Ondansetron HCl 4 mg STK-MED ONCE .ROUTE 02/26/18 19:16 02/26/18 19:21 DC 02/26/18 19:23 8 MG Sodium Chloride 500 ml @ 0 mls/hr Q0M ONCE IV 02/26/18 19:11 02/26/18 19:12 DC 02/26/18 19:16 0 MLS/HR Vital Signs/I&O 02/26/18 02/26/18 18:17 18:55 Temp 98.6 Pulse 134 134 Resp 13 20 B/P (MAP) 105/78 (87) 105/78 Pulse Ox 99 O2 Delivery Room Air Progress Progress Note #1: Time: 19:01 Progress Note Cardizem drip has been initiated without bolus. Cardiac workup is being pursued. Pepcid is being given for stomach upset. It was noted the patient had some brief runs of several beats of narrow complex tachycardia. Progress Note #2: Time: 20:14 Progress Note Patient was placed on a Cardizem drip and titrated up to 10 mg per hour. She converted to a paced rhythm at approximately 19:30. She then converted to a normal sinus rhythm. Symptoms improved dramatically after conversion. Case was discussed with Dr. Vazquez who requested admission for anemia workup. He suggested giving Cardizem CD 120 mg by mouth now. He also requested an echocardiogram in the morning. Anemia was noted at a significant drop from her baseline documented about 18 months ago. There was some dry stool near the anus on exam. This was tested and was Hemoccult positive. Patient will be started on Protonix. Case was discussed with Dr. Cordero who also requested consult with Dr. Abbasi. Dr. Abbasi requested Protonix. One unit of red blood cells has been ordered to hold as a precaution. Zofran and Pepcid were given for GI upset. Progress Note #3: Progress Note Patient remained in normal sinus rhythm throughout the rest of her ER stay. The oral Cardizem cd 120 mg was given. Cardizem drip was turned off approximately 45 minutes after oral dose was taken. Initial ECG Impression Date: Feb 26, 2018 Initial ECG Impression Time: 18:20 Initial ECG Rate: 138 Initial ECG Rhythm: A Fib/Flutter Initial ECG Impression: Atrial Fibrillation w/RVR Comment Atrial fibrillation with RVR. No overt ST elevation or depression. EKG : EKG Time: 20:30 Rate: 68 Rhythm: Normal Sinus Intervals: Normal ECG Impression: Normal Comment Normal sinus rhythm with no ST elevation or depression. No abnormal intervals or axis deviation. Diagnostic Imaging Diagonstic Imaging: Xray Plain Films/CT/US/NM/MRI: chest Comments Chest x-ray viewed by me and report reviewed. See report below: NAME: GERARDO [facility] REC#: [id number] PT STATUS: REG ER : 1935 PHYSICIAN: ALYSON SILVER MD ADMIT DATE: 02/26/18/ER Draft Date of Exam:02/26/18 CHEST 1 VIEW, AP/PA ONLY INDICATION: Shortness of breath. COMPARISON: 01/26/2017. TECHNIQUE: Single view of the chest was obtained. FINDINGS: Stable cardiomegaly with left pectoral transvenous dual-chamber pacemaker. Visualized lungs are clear. Please note the posterior lower lobes are poorly evaluated by portable radiography. No pleural effusion or pneumothorax. IMPRESSION: Cardiomegaly without acute cardiopulmonary process. Dictated on workstation # [id number] Dict: 02/26/184 Trans: 02/26/181855 [facility] [id number] Interpreted by: YAIMA LEBLANC MD Departure Communication (Admissions) Time/Spoke to Admitting Phy: 20:05 Dr. Consuelo Vazquez at 19:35 Dr. Abbasi at 20:09 Impression Primary Impression: Paroxysmal atrial fibrillation with RVR Additional Impressions: Melena Anemia Qualified Codes: D64.9 - Anemia, unspecified Fecal occult blood test positive Chest pain Qualified Codes: R07.9 - Chest pain, unspecified Nausea Disposition: ADMITTED INPATIENT Condition: Improved Admissions Decision to Admit Reason: Admit from ER (General) Decision to Admit/Date: Feb 26, 2018 Time/Decision to Admit Time: 20:05 Departure-Patient Inst. Referrals: LUEK TANG MD (PCP/Family) Primary Care Physician ALYSON SILVER MD Feb 26, 2018 18:40
[2018-02-26 18:41] LABS: BASOPHILS # (AUTO) 0.1 10^3/uL (0.0-0.1); BASOPHILS % (AUTO) 1 % (0-10); EOSINOPHILS # (AUTO) 0.2 10^3/uL (0.0-0.3); EOSINOPHILS % (AUTO) 2 % (0-10); HEMATOCRIT 27 % (35-52); HEMOGLOBIN 8.5 G/DL (11.5-16.0); LYMPHOCYTES # (AUTO) 1.7 X 10^3 (1.0-4.0); LYMPHOCYTES % (AUTO) 21 % (12-44); MEAN CORPUSCULAR HEMOGLOBIN 30 PG (25-34); MEAN CORPUSCULAR HGB CONC 32 G/DL (32-36); MEAN CORPUSCULAR VOLUME 92 FL (80-99); MEAN PLATELET VOLUME 9.3 FL (7.4-10.4); MONOCYTES # (AUTO) 1.3 X 10^3 (0.0-1.0); MONOCYTES % (AUTO) 16 % (0-12); NEUTROPHILS # (AUTO) 4.8 X 10^3 (1.8-7.8); NEUTROPHILS % (AUTO) 60 % (42-75); PLATELET COUNT 530 10^3/uL (130-400); RED BLOOD COUNT 2.87 10^6/uL (4.35-5.85); RED CELL DISTRIBUTION WIDTH 14.8 % (10.0-14.5)
[2018-02-26] MEDS ORDERED: FAMOTIDINE 20MG/2ML IV (PEPCID) IVP ONE (18:45)
[2018-02-26 18:53] LABS: INR 1.4 (0.8-1.4); PROTHROMBIN TIME PATIENT 17.4 SEC (12.2-14.7)
[2018-02-26] MEDS: DILTIAZEM IV FOR DRIP 125 MG in NS (IVPB) 100 ML IV SCH (18:55)
--- NOTE | 2018-02-26 18:56 | Diagnostic Imaging Report ---
INDICATION: Shortness of breath. COMPARISON: 01/26/2017. TECHNIQUE: Single view of the chest was obtained. FINDINGS: Stable cardiomegaly with left pectoral transvenous dual-chamber pacemaker. Visualized lungs are clear. Please note the posterior lower lobes are poorly evaluated by portable radiography. No pleural effusion or pneumothorax. IMPRESSION: Cardiomegaly without acute cardiopulmonary process. Dictated by: Dictated on workstation # [id number]
[2018-02-26 19:01] LABS: ALANINE AMINOTRANSFERASE 14 U/L (0-55); ALBUMIN 3.4 GM/DL (3.2-4.5); ALKALINE PHOSPHATASE 39 U/L (40-136); BILIRUBIN,TOTAL 0.3 MG/DL (0.1-1.0); BUN/CREATININE RATIO 24; CALCIUM 8.9 MG/DL (8.5-10.1); CARBON DIOXIDE 18 MMOL/L (21-32); CHLORIDE 103 MMOL/L (98-107); CREATININE SERUM 1.08 MG/DL (0.60-1.30); GFR ESTIMATED 49; GLUCOSE 125 MG/DL (70-105); MAGNESIUM 2.1 MG/DL (1.8-2.4); POTASSIUM 4.6 MMOL/L (3.6-5.0); SODIUM 134 MMOL/L (135-145); TOTAL PROTEIN 6.5 GM/DL (6.4-8.2)
[2018-02-26 19:04] LABS: EOSINOPHILS % (MANUAL) 1 %; LYMPHOCYTES % (MANUAL) 30 %; MONOCYTES % (MANUAL) 9 %; NEUTROPHILS % (MANUAL) 60 %
[2018-02-26 19:05] LABS: HYPERSEGMENTED NEUT MODERATE; HYPOCHROMASIA MARKED; POLYCHROMASIA MODERATE; STOMATOCYTES SLIGHT
[2018-02-26] MEDS ORDERED: NS IV 500 ML 500 ML IV ONE (19:11)
[2018-02-26] MEDS ORDERED: ONDANSETRON 4 MG/2 ML (SDV) Z0FRAN ONE (19:16)
[2018-02-26 19:23] LABS: MYOGLOBIN SERUM 45.7 NG/ML (10.0-92.0)
[2018-02-26 19:24] LABS: FREE T4 (FREE THYROXINE) 1.24 NG/DL (0.70-1.48)
[2018-02-26] MEDS ORDERED: DILTIAZEM 120 MG (CARDIZEM CD) CAP PO ONE (20:00)
--- OUTSIDE RECORDS SUMMARY | 2018-02-26 20:36 | XMS REPORT | Continuity of Care Document ---
Author Author [facility] Organization [facility] Address Unknown Phone Unavailable Allergies Active Description Code Type Severity Reaction Onset Reported/Identified Relationship to Patient Clinical Status Yes Sulfa (Sulfonamide Antibiotics) [id number] Drug Allergy Mild N/A 2010 Yes Sulfa (Sulfonamide Antibiotics) [id number] Drug Allergy Mild RASH 2017 Medications There [...] NOS 11/26/2011 Ot 414.01 CORONARY ATHEROSCLEROSIS OF [place] CORON 11/26/2011 Ot 562.10 DIVERTICULOSIS COLON (W/O [...] NOS 12/30/2011 Ot 414.01 CORONARY ATHEROSCLEROSIS OF [place] CORON 12/30/2011 Ot 530.81 ESOPHAGEAL REFLUX 12/30/2011 [...] MAMMO-MALIGN NEOPLASM OF [place] 08/12/2016 FROYLAN OSORIO [facility] Ot M47.816 SPONDYLOSIS W/O MYELOPATHY OR [...] NICOTINE DEPENDENCE, CIGARETTES, UNCOMPL 08/25/2016 LUKE TANG MD Ot F41.9 ANXIETY DISORDER, UNSPECIFIED 08/25/2016 LUKE TANG MD Ot I10 ESSENTIAL (PRIMARY) HYPERTENSION 08/25/2016 LUKE TANG MD Ot I25.10 ATHSCL HEART DISEASE OF [place] CORONARY 08/25/2016 LUKE TANG MD Ot I25.2 [...] PRESENCE OF CARDIAC PACEMAKER 02/25/2017 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 Ot R26.9 UNSPECIFIED ABNORMALITIES OF GAIT AND MO 02/25/2017 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 Ot R32 UNSPECIFIED URINARY INCONTINENCE 02/25/2017 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 Ot R41.3 OTHER AMNESIA 02/25/2017 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 Ot R53.1 WEAKNESS 05/12/2017 CLYDE DRISCOLL, LUKE [...] ENCOUNTER FOR OTHER SPECIFIED PROPHYLACT 10/25/2017 LUKE TNAG MD Ot Z29.8 ENCOUNTER FOR OTHER SPECIFIED [...] UNSPECIFIED 11/30/2017 MONALISA MORRISON MD, Ot Z79.01 [facility] (CURRENT) USE OF ANTICOAGULANT 11/30/2017 MONALISA MORRISON MD, Ot Z79.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 11/30/2017 MONALISA MORRISON MD, [...] albumin measurement (mass/volume) 3.7 g/dL 3.2-4.5 Complete blood count (CBC) with automated white blood cell (WBC) differential - 02/26/18 18:33 Blood leukocytes automated count (number/volume) 8.0 10*3/uL 4.3-11.0 Blood erythrocytes automated count (number/volume) 2.87 10*6/uL 4.35-5.85 Venous blood hemoglobin measurement (mass/volume) 8.5 g/dL 11.5-16.0 Blood hematocrit (volume fraction) 27 % 35-52 Automated erythrocyte mean corpuscular volume 92 [foz_us] 80-99 Automated erythrocyte mean corpuscular hemoglobin (mass per erythrocyte) 30 pg 25-34 Automated erythrocyte mean corpuscular hemoglobin concentration measurement ( mass/volume) 32 g/dL 32-36 Automated erythrocyte distribution width ratio 14.8 % 10.0-14.5 Automated blood platelet count (count/volume) 530 10*3/uL 130-400 Automated blood platelet mean volume measurement 9.3 [foz_us] 7.4-10.4 Automated blood neutrophils/100 leukocytes 60 % 42-75 Automated blood lymphocytes/100 leukocytes 21 % 12-44 Blood monocytes/100 leukocytes 16 % 0-12 Automated blood eosinophils/100 leukocytes 2 % 0-10 Automated blood basophils/100 leukocytes 1 % 0-10 Blood neutrophils automated count (number/volume) 4.8 10*3 1.8-7.8 Blood lymphocytes automated count (number/volume) 1.7 10*3 1.0-4.0 Blood monocytes automated count (number/volume) 1.3 10*3 0.0-1.0 Automated eosinophil count 0.2 10*3/uL 0.0-0.3 Automated blood basophil count (count/volume) 0.1 10*3/uL 0.0-0.1 PT panel in platelet poor plasma by coagulation assay - 02/26/18 18:33 Prothrombin time (PT) in platelet poor plasma by coagulation assay 17.4 s 12.2-14.7 INR in platelet poor plasma or blood by coagulation assay 1.4 0.8-1.4 Activated partial thromboplastin time (aPTT) in platelet poor plasma bycoagulation assay - 02/26/18 18:33 Activated partial thromboplastin time (aPTT) in platelet poor plasma bycoagulation assay 51 s 24-35 Comprehensive metabolic panel - 02/26/18 18:33 Serum or plasma sodium measurement (moles/volume) 134 mmol/L 135-145 Serum or plasma potassium measurement (moles/volume) 4.6 mmol/L 3.6-5.0 Serum or plasma chloride measurement (moles/volume) 103 mmol/L 98-107 Carbon dioxide 18 mmol/L 21-32 Serum or plasma anion gap determination (moles/volume) 13 mmol/L 5-14 Serum or plasma urea nitrogen measurement (mass/volume) 26 mg/dL 7-18 Serum or plasma creatinine measurement (mass/volume) 1.08 mg/dL 0.60-1.30 Serum or plasma urea nitrogen/creatinine mass ratio 24 NRG Serum or plasma creatinine measurement with calculation of estimated glomerular filtration rate 49 NRG Serum or plasma glucose measurement (mass/volume) 125 mg/dL 70-105 Serum or plasma calcium measurement (mass/volume) 8.9 mg/dL 8.5-10.1 Serum or plasma total bilirubin measurement (mass/volume) 0.3 mg/dL 0.1-1.0 Serum or plasma alkaline phosphatase measurement (enzymatic activity/volume) 39 U/L 40-136 Serum or plasma aspartate aminotransferase measurement (enzymatic activity/ volume) 27 U/L 5-34 Serum or plasma alanine aminotransferase measurement (enzymatic activity/volume ) 14 U/L 0-55 Serum or plasma protein measurement (mass/volume) 6.5 g/dL 6.4-8.2 Serum or plasma albumin measurement (mass/volume) 3.4 g/dL 3.2-4.5 CALCIUM CORRECTED 9.4 mg/dL 8.5-10.1 Magnesium - 02/26/18 18:33 Magnesium 2.1 mg/dL 1.8-2.4 Blood manual differential performed detection - 02/26/18 18:33 Blood monocytes/100 leukocytes 9 % NRG Manual blood segmented neutrophils/100 leukocytes 60 % NRG Manual blood lymphocytes/100 leukocytes 30 % NRG Manual eosinophils/100 leukocytes in nose 1 % NRG Blood polychromasia detection by light microscopy MODERATE NRG Blood hypochromia detection by light microscopy MARKED NRG Blood stomatocytes detection by light microscopy SLIGHT NRG Blood hypersegmented neutrophils detection by light microscopy MODERATE NRG Serum or plasma lithium measurement (moles/volume) - 02/26/18 18:33 BNP level 647.8 pg/mL <100.0 Serum or plasma troponin i.cardiac measurement (mass/volume) - 02/26/18 18:33 Serum or plasma troponin i.cardiac measurement (mass/volume) < ng/ mL <0.30 Myoglobin, serum - 02/26/18 18:33 Myoglobin, serum 45.7 ng/mL 10.0-92.0 THYROID STIMULATING HORMONE - 02/26/18 18:33 THYROID STIMULATING HORMONE 0.01 u[iU]/mL 0.35-4.94 Serum or plasma thyroxine (T4) free measurement (mass/volume) - 02/26/18 18:33 Serum or plasma thyroxine (T4) free measurement (mass/volume) 1.24 ng/dL 0.70-1.48 Encounters ACCT No. Visit Date/Time Discharge Status Pt. Type Provider Facility Loc./Unit Complaint [id number] 02/10/2018 15:03:00 02/10/2018 23:59:59 CLS Outpatient LUKE TANG MD [facility]3 WELLNESS [id number] 01/27/2018 16:13:00 01/27/2018 00:01:00 DIS Outpatient LUKE TANG MD [facility] CR3 WELLNESS [id number] 12/19/2017 15:05:00 12/19/2017 23:59:59 CLS Outpatient LUKE TANG MD [facility] WELLNESS [id number] 11/28/2017 09:34:00 11/28/2017 23:59:59 CLS Preadmit MONALISA MORRISON MD [facility] RAD DIVERTICULITIS [id number] 11/28/2017 07:30:00 11/28/2017 12:48:00 DIS Outpatient MONALISA MORRISON MD [facility] ENDO DIARRHEA [id number] 11/16/2017 16:44:00 11/23/2017 00:01:00 DIS Outpatient LUKE TANG MD [facility] WELLNESS [id number] 11/21/2017 05:42:00 11/21/2017 15:12:00 DIS Outpatient MONALISA MORRISON MD [facility] PREOP COLONOSCOPY [id number] 10/21/2017 15:10:00 10/23/2017 00:01:00 DIS Outpatient LUKE TANG MD [facility] [place] [address] WELLNESS [id number] 09/21/2017 15:19:00 09/21/2017 00:01:00 DIS Outpatient LUKE TANG MD [facility] [place] [address] WELLNESS [id number] 08/31/2017 03:16:00 08/31/2017 23:59:59 CLS Preadmit LUKE TANG MD [facility] IRON DEFICIENCY ANEMIA [id number] 06/13/2017 12:48:00 08/30/2017 00:01:00 DIS Outpatient LUKE TANG MD [facility] IRON DEFICIENCY ANEMIA [id number] 04/20/2017 13:59:00 04/20/2017 23:59:59 CLS Outpatient LUKE TANG MD [facility] RT HX OF TOBACCO USE [id number] 02/02/2017 10:16:00 02/02/2017 23:59:59 CLS Outpatient JAMES FLEMING APRN [facility] RAD GAIT IMBALANCE [id number] 01/26/2017 13:09:00 01/26/2017 23:59:59 CLS Outpatient LUKE TANG MD [facility] RAD COUGH [id number] 08/23/2016 01:55:00 08/25/2016 18:40:00 DIS Inpatient LUKE TANG MD [facility] ICU A-FIB W/RVR, CHEST PAIN [id number] 08/15/2016 15:42:00 08/16/2016 15:30:00 DIS Inpatient LUKE TANG MD [facility] 4TH WEAKNESS,HYPONATREMIA, UTI [id number] 08/12/2016 14:23:00 08/12/2016 23:59:59 CLS Outpatient FROYLAN OSORIO [facility] RAD LOW BACK PAIN [id number] 07/19/2013 15:25:00 07/19/2013 23:59:59 CLS Outpatient JEREMIAH MOTTA MD [facility] RAD SCREENING [id number] 02/26/2018 20:24:00 ACT Inpatient LUKE TANG MD [facility] ICU AFIB W/RVR,ANEMIA,HEMOCCULT,GI BLEED [id number] 07/25/2014 11:10:00 Document Registration [id number] 06/12/2012 10:20:00 Document Registration [id number] 12/27/2011 13:28:00 Document Registration [id number] 12/13/2011 09:03:00 Document Registration [id number] 12/08/2011 13:33:00 Document Registration [id number] 11/22/2011 15:26:00 Document Registration [id number] 04/14/2011 16:49:00 Document Registration [id number] 12/28/2016 21:08:40 12/28/2016 23:59:59 CLS Outpatient [id number] 04/11/2017 11:36:35 04/11/2017 23:59:59 CLS Outpatient
[2018-02-26] MEDS ORDERED: ONDANSETRON 4 MG/2 ML (SDV) Z0FRAN IV PRN (22:00)
[2018-02-26] MEDS: PANTOPRAZOLE 40 MG (PROTONIX) VIAL IV SCH (22:40)
[2018-02-27] VITALS (15 sets, daily range): BP systolic 111–171; BP diastolic 48–94
[2018-02-27 03:18] LABS: BASOPHILS % (AUTO) 1 % (0-10); EOSINOPHILS # (AUTO) 0.1 10^3/uL (0.0-0.3); EOSINOPHILS % (AUTO) 1 % (0-10); HEMATOCRIT 22 % (35-52); LYMPHOCYTES # (AUTO) 1.9 X 10^3 (1.0-4.0); LYMPHOCYTES % (AUTO) 25 % (12-44); MEAN CORPUSCULAR HEMOGLOBIN 29 PG (25-34); MEAN CORPUSCULAR HGB CONC 32 G/DL (32-36); MEAN CORPUSCULAR VOLUME 92 FL (80-99); MONOCYTES # (AUTO) 0.8 X 10^3 (0.0-1.0); MONOCYTES % (AUTO) 11 % (0-12); NEUTROPHILS # (AUTO) 4.8 X 10^3 (1.8-7.8); NEUTROPHILS % (AUTO) 63 % (42-75); PLATELET COUNT 410 10^3/uL (130-400); RED BLOOD COUNT 2.38 10^6/uL (4.35-5.85); RED CELL DISTRIBUTION WIDTH 14.7 % (10.0-14.5); WHITE BLOOD COUNT 7.6 10^3/uL (4.3-11.0)
[2018-02-27 03:42] LABS: BUN/CREATININE RATIO 27; CALCIUM 8.3 MG/DL (8.5-10.1); CARBON DIOXIDE 21 MMOL/L (21-32); CHLORIDE 107 MMOL/L (98-107); CHOLESTEROL 101 MG/DL (< 200); CREATININE SERUM 0.84 MG/DL (0.60-1.30); GFR ESTIMATED > 60; GLUCOSE 90 MG/DL (70-105); HDL CHOLESTEROL 27 MG/DL (40-60); POTASSIUM 3.8 MMOL/L (3.6-5.0); SODIUM 136 MMOL/L (135-145); TRIGLYCERIDES 143 MG/DL (<150); VLDL CHOLESTEROL 29 MG/DL (5-40)
[2018-02-27 04:23] LABS: BILIRUBIN,URINE NEGATIVE (NEGATIVE); CLARITY,URINE CLEAR; COLOR,URINE YELLOW; GLUCOSE, URINE (UA) NEGATIVE (NEGATIVE); KETONES,URINE NEGATIVE (NEGATIVE); LEUKOCYTE ESTERASE ,URINE 1+ (NEGATIVE); NITRITE,URINE NEGATIVE (NEGATIVE); PH,URINE 6 (5-9); PROTEIN,URINE NEGATIVE (NEGATIVE); UROBILINOGEN,URINE 1 MG/DL (NORMAL)
[2018-02-27 04:31] LABS: BACTERIA,URINE NEGATIVE /HPF; SQUAMOUS EPITHELIAL CELL,UR RARE /HPF; WBC,URINE RARE /HPF
[2018-02-27] MEDS ORDERED: FLU QUADRIvalent (5+ YOA) 2018-2019 (AFLURIA) 0.5 ML IM ONE (07:00)
--- NOTE | 2018-02-27 08:57 | History & Physical ---
History of Present Illness History of Present Illness Reason for visit/HPI 82 yo F Admitted last evening for afib with RVR also found to have a GI bleed noted by pt reporting she has some dry heaves with dark, shiny bowel movements. No history of GI bleeds. She did take a couple aspirin for her chest pain and is currently on eliquis for CAD, chronic atrial fibrillation. Pt presented to the ER last night for chest pain that would not go away- onset was yesterday. Of note pt was having back pain last week (February 22) and the LYFT DRIVER at [facility] put her on prednisone and antibiotics to cover for a possible UTI. Pt converted to NSR in ER last night with IV diltiazem. Her baseline hgb from last year was 11, on admission 8.5 and this AM 7. Will transfuse 2 units of pRBC. No overnight events per patient. This am pt reports resolution of chest pain. She also would like to go home. Date of Admission Feb 26, 2018 at 20:24 Date Seen by a Provider: Feb 27, 2018 Time Seen by a Provider: 07:00 I consulted on this patient on 02/27/18 08:37 Attending Physician Kandi Cabrera MD Admitting Physician Kandi Cabrera MD Consult Dr. Elroy Vazquez Allergies and Home Medications Allergies Coded Allergies: Sulfa (Sulfonamide Antibiotics) (Verified Adverse Reaction, Mild, RASH, 11/21/17) Home Medications Alendronate Sodium 70 Mg Tablet, 70 MG PO Sa, (Reported) Apixaban 5 Mg Tablet, 5 MG PO BID, (Reported) Ascorbic Acid 1,000 Mg Tablet, 1,000 MG PO DAILY, (Reported) Calcium Carbonate 600 Mg Tablet, 600 MG PO BID, (Reported) Cholecalciferol (Vitamin D3) 2,000 Unit Capsule, 2,000 UNIT PO BID, (Reported) Ciprofloxacin HCl 500 Mg Tablet, 500 MG PO BID, (Reported) 7 DAY THERAPY FILLED 02-22-18 Cyanocobalamin (Vitamin B-12) 500 Mcg Tablet, 500 MCG PO DAILY, (Reported) Diltiazem HCl 180 Mg Cap.er.24h, 180 MG PO DAILY, (Reported) Diphenhydramine HCl 25 Mg Capsule, 25-50 MG PO HS, (Reported) Fenofibrate Nanocrystallized 145 Mg Tablet, 145 MG PO DAILY, (Reported) Fluticasone Propionate 16 Gm Bailey.susp, 1 SPRAY NS DAILY, (Reported) Folic Acid 0.4 Mg Tablet, 0.4 MG PO DAILY, (Reported) Furosemide 20 Mg Tablet, 20 MG PO DAILY, (Reported) Gluc/Renny-MSM#2/C/D3/Ruben/Born 1 Each Tablet, 1 TAB PO DAILY, (Reported) Lactobacillus Rhamnosus GG 1 Each Capsule, 1 CAP PO DAILY, (Reported) Levothyroxine Sodium 100 Mcg Tablet, 100 MCG PO DAILY, (Reported) Loratadine 10 Mg Capsule, 10 MG PO DAILY, (Reported) Lysine HCl 500 Mg Tablet, 1,000 MG PO DAILY, (Reported) Omeprazole 40 Mg Capsule.dr, 40 MG PO DAILY, (Reported) Perphenazine/Amitriptyline HCl 1 Each Tablet, 1 TAB PO BID, (Reported) Potassium Chloride 10 Meq Tab.er.prt, 10 MEQ PO DAILY, (Reported) Prednisone 20 Mg Tab, 20 MG PO BID, (Reported) 5 DAY THERAPY FILLED 02-22-18 Simvastatin 20 Mg Tablet, 20 MG PO DAILY, (Reported) Sotalol HCl 80 Mg Tablet, 80 MG PO BID, (Reported) Sucralfate 1 Gm Tablet, 1 GM PO TID, (Reported) Vitamin E 400 Unit Capsule, 400 UNIT PO DAILY, (Reported) Patient Home Medication List Home Medication List Reviewed: Yes Past Ptplilb-Afjbwn-Xizmla Hx Patient Social History Alcohol Use: Denies Use Recreational Drug Use: No Smoking Status: Current Everyday Smoker Type Used: Cigarettes 2nd Hand Smoke Exposure: No Physical Abuse Screen: No Sexual Abuse: No Recent Foreign Travel: No Contact w/other who traveled: No Recent Hopitalizations: No Recent Infectious Disease Expo: No Immunizations Up To Date Tetanus Booster (TDap): Unknown Date of Pneumonia Vaccine: Mar 07, 2017 Date of Influenza Vaccine: Mar 07, 2017 Seasonal Allergies Seasonal Allergies: Yes Surgeries Yes (PACEMAKER, KYPHOPLASTY, R LEG PLATES/SCREWS) Coronary Stent, Gallbladder, Hysterectomy Respiratory No Cardiovascular Yes (ANGIOPLASTY W/ STENT,1998) Atrial Fibrillation (paroxysmal with episodes of RVR), Heart Attack, High Cholesterol, Hypertension Neurological No Reproductive System : No Hx Reproductive Disorders: No Sexually Transmitted Disease: No HIV/AIDS: No Female Reproductive Disorders: Denies [employer] History: Hysterectomy, Menopausal Genitourinary Yes UTI-Chronic Gastrointestinal Yes Gastroesophageal Reflux, Diverticulosis, Ulcer Musculoskeletal Yes (KYPOPLASTY NOVEMBER 2011 L1) Arthritis Endocrine History of Endocrine Disorders: Yes Endocrine Disorders: Hypothyroidsim HEENT History of HEENT Disorders: No Loss of Vision: Denies Hearing Impairment: Hard of Hearing Cancer No Psychosocial History of Psychiatric Problem: No Integumentary History of Skin or Integumenta: No Blood Transfusions History of Blood Disorders: Yes (ANEMIA) Adverse Reaction to a Blood Tr: No Family Medical History Significant Family History: Heart Disease, Hypertension Family Hx: Cardiovascular disease 19 FATHER 19 MOTHER G8 BROTHER Hypertension 19 FATHER G8 BROTHER Review of Systems Review of Systems General: No Chills, No Night Sweats HEENT: No Head Aches, No Visual Changes Pulmonary: No Dyspnea, No Cough Cardiovascular: No: Chest Pain, Palpitations Gastrointestinal: No: Nausea, Vomiting, Abdominal Pain, Diarrhea, Constipation Genitourinary: No Dysuria, No Frequency Musculoskeletal: No: neck pain, shoulder pain Neurological: No: Weakness, Confusion Physical Exam Vital Signs Vital Signs - First Documented 02/26/18 18:17 Temp 98.6 Pulse 134 Resp 13 B/P (MAP) 105/78 (87) Pulse Ox 99 O2 Delivery Room Air Capillary Refill : Less Than 3 Seconds Height, Weight, BMI Height: 5'4.00" Weight: 158lbs. 0.0oz. [id number]; 27.1 BMI Method:Stated General Appearance: No Apparent Distress, WD/WN HEENT: PERRL/EOMI Neck: Non Tender, Supple, Carotid Bruit (l/r) Respiratory: Chest Non Tender, Lungs Clear, Normal Breath Sounds, No Accessory Muscle Use, No Respiratory Distress Cardiovascular: Regular Rate, Rhythm, Systolic Murmur (grade 3/6) Gastrointestinal: Non Tender, Soft Rectal: Deferred Back: Normal Inspection, No CVA Tenderness Extremity: Normal Inspection, Normal Range of Motion, Non Tender, No Calf Tenderness Neurologic/Psychiatric: Alert, Oriented x3, No Motor/Sensory Deficits, Normal Mood/Affect Skin: Normal Color, Warm/Dry Assessment/Plan Assessment/Plan Admission Dx atrial fibrillation with RVR GI bleed Admission Status: Inpatient Order (span 2 midnights) Reason for Inpatient Admission: afib with RVR and GI bleed Patient will require 2 midnights given the multiple medical issues and potential complications of her condition. She will need monitored and evaluated with an EGD, colonoscopy to assess the GI bleed. Her case is complicated by being on Eliquis. Assessment and Plan 82 yo F atrial fibrillation with RVR- converted to NSR in the ED with diltiazem. Dr. Vazquez consulted- continue diltiazem - 2-D ECHO ordered. acute blood loss anemia from GI bleed- transfusing 2 units pRBC today- recheck hgb this afternoon. GI bleed- Dr. Abbasi consulted- planning for EGD and colonoscopy 02/28/18, continue protonix HTN- on diltiazem, monitor bp HLD- continue statin upon discharge hypothyroidism- continue levothyroxine 100mcg TSH low, free T4 normal CAD- Dr. Vazquez consulted Aortic stenosis- follows with cardiology Dispo: plan for egd, possible colonoscopy tomorrow. transfusing 2 units pRBC today. monitor hgb. Dr. Cabrera to resume care in AM. DVT chemoppx contraindicated due to GI bleed. Clinical Quality Measures AMI/AHF: ASA po Prior to arrival: Yes DVT/VTE Risk/Contraindication: Risk Factor Score Per Nursin RFS Level Per Nursing on Admit: 4+=Very High GOGO COLMENARES MD Feb 27, 2018 08:57
[2018-02-27] MEDS ORDERED: NS (IVPB) 250 ML ONE (09:03)
[2018-02-27] MEDS ORDERED: CHOL20003 PO ×2 (09:04)
[2018-02-27] MEDS ORDERED: CYAN500T44 PO ×2 (09:04)
[2018-02-27] MEDS ORDERED: DIPH25CA6 PO ×2 (09:04)
[2018-02-27] MEDS ORDERED: FENO145T37 PO ×2 (09:04)
[2018-02-27] MEDS ORDERED: APIX5TAB PO ×2 (09:04)
[2018-02-27] MEDS ORDERED: POTA10TA14 PO ×2 (09:04)
[2018-02-27] MEDS ORDERED: LACT1CAP39 PO ×2 (09:04)
[2018-02-27] MEDS ORDERED: DILT180C PO ×2 (09:04)
[2018-02-27] MEDS ORDERED: PRD20T PO ×2 (09:11)
[2018-02-27] MEDS ORDERED: CIPR500T4 PO ×2 (09:11)
--- NOTE | 2018-02-27 09:21 | Consultation-Cardiology ---
HPI-Cardiology Cardiology Consultation: Date of Consultation 02/27/18 Date of Admission Attending Physician Kandi Cabrera MD Admitting Physician Kandi Cabrera MD Consulting Physician Latisha VAZQUEZ MD HPI: Time Seen by a Provider: 09:21 Chief Complaint: Chest pain This is a 82-year-old lady with past medical history of paroxysmal atrial fibrillation on Eliquis and CAD/PCI on aspirin. She presents with 2 day history of back and lower abdominal discomfort. Yesterday she developed chest pain which was substernal, moderate intensity, no significant radiation. More like burning. She was found to be in atrial fibrillation with rapid ventricular rate and treated with Cardizem infusion. She does have history of paroxysmal atrial fibrillation. She also has history of CAD with stents in the past. She also complained of dark stools and was found to have low hemoglobin. Review of Systems-Cardiology Review of Systems Constitutional: As described under HPI; No As described under HPI, No no symptoms reported, No chills, No fever, No lightheadedness Eyes: No As described under HPI, No no symptoms reported, No blindness, No blurred vision, No contact lenses, No drainage, No decreased acuity, No foreign body sensation, No pain, No vision change Ears/Nose/Throat: No As described under HPI, No no symptoms reported, No chronic hearing loss, No ear discharge, No ear pain, No nasal drainage, No ulcerations Respiratory: No no symptoms reported; As described under HPI; No As described under HPI, No cough, No orthopnea, No shortness of breath, No SOB with excertion Cardiovascular: No no symptoms reported; As described under HPI; No As described under HPI; chest pain; No edema, No irregular heart rate, No lightheadedness, No palpitations Gastrointestinal: No no symptoms reported, No As described under HPI, No abdomen distended; abdominal pain; No blood streaked bowels, No constipation, No diarrhea, No nausea, No vomiting; stool coloration changes Genitourinary: No As described under HPI, No burning, No dysuria, No discharge , No frequency, No flank pain, No hematuria, No urgency : Yes : No Skin: No rash, No skin related problems, No ulcerations Psychiatric/Neurological: No anxiety, No depression, No seizure, No focal weakness, No syncope Hematologic: No bleeding abnormalities VPR-Joewwx-Kivpnf Hx Patient Social History Alcohol Use: Denies Use Recreational Drug Use: No Smoking Status: Current Everyday Smoker Type Used: Cigarettes 2nd Hand Smoke Exposure: No Recent Foreign Travel: No Recent Infectious Disease Expo: No Hospitalization with Isolation: Denies Physical Abuse Screen: No Sexual Abuse: No Immunizations Up To Date Tetanus Booster (TDap): Unknown Date of Pneumonia Vaccine: Mar 07, 2017 Date of Influenza Vaccine: Mar 07, 2017 Past Medical History PMH As described under Assessment. Family Medical History Family History: Cardiovascular disease 19 FATHER 19 MOTHER G8 BROTHER Hypertension 19 FATHER G8 BROTHER Allergies and Home Medications Allergies Coded Allergies: Sulfa (Sulfonamide Antibiotics) (Verified Adverse Reaction, Mild, RASH, 11/21/17) Home Medications Alendronate Sodium 70 Mg Tablet, 70 MG PO Sa, (Reported) Apixaban 5 Mg Tablet, 5 MG PO BID, (Reported) Ascorbic Acid 1,000 Mg Tablet, 1,000 MG PO DAILY, (Reported) Calcium Carbonate 600 Mg Tablet, 600 MG PO BID, (Reported) Cholecalciferol (Vitamin D3) 2,000 Unit Capsule, 2,000 UNIT PO BID, (Reported) Ciprofloxacin HCl 500 Mg Tablet, 500 MG PO BID, (Reported) 7 DAY THERAPY FILLED 02-22-18 Cyanocobalamin (Vitamin B-12) 500 Mcg Tablet, 500 MCG PO DAILY, (Reported) Diltiazem HCl 180 Mg Cap.er.24h, 180 MG PO DAILY, (Reported) Diphenhydramine HCl 25 Mg Capsule, 25-50 MG PO HS, (Reported) Fenofibrate Nanocrystallized 145 Mg Tablet, 145 MG PO DAILY, (Reported) Fluticasone Propionate 16 Gm Orla.susp, 1 SPRAY NS DAILY, (Reported) Folic Acid 0.4 Mg Tablet, 0.4 MG PO DAILY, (Reported) Furosemide 20 Mg Tablet, 20 MG PO DAILY, (Reported) Gluc/Renny-MSM#2/C/D3/Ruben/Born 1 Each Tablet, 1 TAB PO DAILY, (Reported) Lactobacillus Rhamnosus GG 1 Each Capsule, 1 CAP PO DAILY, (Reported) Levothyroxine Sodium 100 Mcg Tablet, 100 MCG PO DAILY, (Reported) Loratadine 10 Mg Capsule, 10 MG PO DAILY, (Reported) Lysine HCl 500 Mg Tablet, 1,000 MG PO DAILY, (Reported) Omeprazole 40 Mg Capsule.dr, 40 MG PO DAILY, (Reported) Perphenazine/Amitriptyline HCl 1 Each Tablet, 1 TAB PO BID, (Reported) Potassium Chloride 10 Meq Tab.er.prt, 10 MEQ PO DAILY, (Reported) Prednisone 20 Mg Tab, 20 MG PO BID, (Reported) 5 DAY THERAPY FILLED 02-22-18 Simvastatin 20 Mg Tablet, 20 MG PO DAILY, (Reported) Sotalol HCl 80 Mg Tablet, 80 MG PO BID, (Reported) Sucralfate 1 Gm Tablet, 1 GM PO TID, (Reported) Vitamin E 400 Unit Capsule, 400 UNIT PO DAILY, (Reported) Patient Home Medication List Home Medication List Reviewed: Yes Physical Exam-Cardiology Physical Exam Vital Signs/I&O 02/27/18 02/27/18 02/27/18 02/27/18 04:00 04:00 04:00 06:00 Temp 97.3 Pulse 93 71 Resp 18 18 B/P (MAP) 137/65 (89) 111/57 (75) Pulse Ox 92 89 92 O2 Delivery Room Air Room Air Room Air 02/27/18 02/27/18 02/27/18 02/27/18 07:00 08:00 08:00 08:00 Temp 97.3 Pulse 95 98 Resp 18 B/P (MAP) 131/85 (100) Pulse Ox 94 O2 Delivery Nasal Cannula OxyMask Nasal Cannula O2 Flow Rate 2.00 5.00 2.00 02/27/18 02/27/18 02/27/18 02/27/18 09:00 09:13 09:46 11:45 Temp 97.0 97.8 97.7 Pulse 93 96 98 Resp 18 B/P (MAP) 142/62 141/62 150/71 Pulse Ox 91 91 94 95 O2 Delivery Room Air Room Air Room Air Nasal Cannula O2 Flow Rate 2.00 02/27/18 02/27/18 02/27/18 02/27/18 12:14 12:22 12:35 13:00 Temp 97.7 97.9 Pulse 96 98 96 101 Resp 18 18 20 B/P (MAP) 158/76 148/73 Pulse Ox 95 95 O2 Delivery Nasal Cannula Room Air O2 Flow Rate 2.00 02/27/18 14:31 Temp 98.7 Pulse 98 Resp 18 B/P (MAP) 164/88 Pulse Ox 94 O2 Delivery Nasal Cannula O2 Flow Rate 2.00 02/26/18 23:59 Intake Total 500 ml Balance 500 ml Capillary Refill : Less Than 3 Seconds Constitutional: appears stated age, AAO x 3; No apparent distress; well- developed, well-nourished HEENT: PERRL; No normal ENT inspection, No TMs normal, No pharynx normal, No scleral icterus (R), No scleral icterus (L), No pale conjunctivae (R), No pale conjunctivae (L), No photophobia, No TM abnormal (R), No TM abnormal (L), No pharyngeal erythema, No tonsillar exudate, No other, No discharge, No EOMI; hearing is well preserved; No hard of hearing; oral hygience is good; No ulceration, No xanthelasmas are seen Neck: No non-tender, No full range of motion, No supple, No normal inspection, No carotid bruit, No limited range of motion, No lymphadenopathy (R), No lymphadenopathy (L), No tender lateral, No tender midline, No thyromegaly, No other; carotid pulses are 2 + bilaterally; No with good upstrokes Respiratory: No accessory muscle use, No respiratory distress, No chest tender , No chest expansion is symmetric; chest is bilaterally symmetric; No lungs clear to percussion; lungs clear to auscultation; No crackles, No rhonchi, No rales, No stridor, No wheezing, No pleural rub, No other Cardiovascular: regular rate-rhythm; No irregularly irregular, No extra beats, No parasternal heave is noted, No JVD, No edema, No bradycardia, No tachycardia , No point of maximal impulse, No cardiac thrills are palpable; S1 and S2; No gallop/S3, No gallop/S4, No diastolic murmur; systolic murmur; No friction rub, No click, No other Gastrointestinal: No tender, No soft, No round, No distended, No pulsatile mass , No organomegaly, No guarding, No rebound, No tenderness, No hernia, No mass, No audible bowel sounds, No abnormal bowel sounds, No abdominal bruits, No spleenomegaly, No other Rectal: deferred Extremities: No normal range of motion, No non-tender, No normal inspection, No pedal edema, No calf tenderness, No normal capillary refill, No pelvis stable , No calf tenderness, No inflammation, No pedal edema, No slow capillary refill , No swelling, No other, No abrasion, No clubbing, No cyanosis, No ecchymosis, No laceration, No no lower extremity edema bilateral, No significant edema, No tenderness, No wound Neurologic/Psychiatric: no motor/sensory deficits, alert, normal mood/affect, oriented x 3, power is 5/5 both on sides Skin: No normal color, No warm/dry, No cyanosis, No cool, No diaphoresis, No damp, No ecchymosis, No jaundice, No mottled, No pallor, No rash, No tattoos/ piercings, No ulcerations, No rash on exposed areas, No ulcerations on exposed areas, No other Data Review Labs Laboratory Tests 02/26/18 18:33: White Blood Count 8.0, Red Blood Count 2.87L, Hemoglobin 8.5L, Hematocrit 27L, Mean Corpuscular Volume 92, Mean Corpuscular Hemoglobin 30, Mean Corpuscular Hemoglobin Concent 32, Red Cell Distribution Width 14.8H, Platelet Count 530H, Mean Platelet Volume 9.3, Neutrophils (%) (Auto) 60, Lymphocytes (%) (Auto) 21, Monocytes (%) (Auto) 16H, Eosinophils (%) (Auto) 2, Basophils (%) (Auto) 1, Neutrophils # (Auto) 4.8, Lymphocytes # (Auto) 1.7, Monocytes # (Auto) 1.3H, Eosinophils # (Auto) 0.2, Basophils # (Auto) 0.1, Neutrophils % (Manual) 60, Lymphocytes % (Manual) 30, Monocytes % (Manual) 9, Eosinophils % (Manual) 1, Hypersegmented Neutrophils MODERATE, Polychromasia MODERATE, Hypochromasia MARKED, Stomatocytes SLIGHT, Prothrombin Time 17.4H, INR Comment 1.4, Activated Partial Thromboplast Time 51H, Sodium Level 134L, Potassium Level 4.6, Chloride Level 103, Carbon Dioxide Level 18L, Anion Gap 13, Blood Urea Nitrogen 26H, Creatinine 1.08, Estimat Glomerular Filtration Rate 49, BUN/Creatinine Ratio 24 , Glucose Level 125H, Calcium Level 8.9, Corrected Calcium 9.4, Magnesium Level 2.1, Total Bilirubin 0.3, Aspartate Amino Transf (AST/SGOT) 27, Alanine Aminotransferase (ALT/SGPT) 14, Alkaline Phosphatase 39L, Myoglobin 45.7, Troponin I < 0.30, B-Type Natriuretic Peptide 647.8H, Total Protein 6.5, Albumin 3.4, Thyroid Stimulating Hormone (TSH) 0.01L, Free Thyroxine 1.24 02/27/18 03:04: White Blood Count 7.6, Red Blood Count 2.38L, Hemoglobin 7.0L, Hematocrit 22L, Mean Corpuscular Volume 92, Mean Corpuscular Hemoglobin 29, Mean Corpuscular Hemoglobin Concent 32, Red Cell Distribution Width 14.7H, Platelet Count 410H, Mean Platelet Volume 9.0, Neutrophils (%) (Auto) 63, Lymphocytes (%) (Auto) 25, Monocytes (%) (Auto) 11, Eosinophils (%) (Auto) 1, Basophils (%) (Auto) 1, Neutrophils # (Auto) 4.8, Lymphocytes # (Auto) 1.9, Monocytes # (Auto) 0.8, Eosinophils # (Auto) 0.1, Basophils # (Auto) 0.0, Sodium Level 136, Potassium Level 3.8, Chloride Level 107, Carbon Dioxide Level 21, Anion Gap 8, Blood Urea Nitrogen 23H, Creatinine 0.84, Estimat Glomerular Filtration Rate > 60, BUN/ Creatinine Ratio 27, Glucose Level 90, Calcium Level 8.3L, Triglycerides Level 143, Cholesterol Level 101, LDL Cholesterol Direct 55, VLDL Cholesterol 29, HDL Cholesterol 27L 02/27/18 03:41: Urine Color YELLOW, Urine Clarity CLEAR, Urine pH 6, Urine Specific [place] 1.015L, Urine Protein NEGATIVE, Urine Glucose (UA) NEGATIVE, Urine Ketones NEGATIVE, Urine Nitrite NEGATIVE, Urine Bilirubin NEGATIVE, Urine Urobilinogen 1 , Urine Leukocyte Esterase 1+H, Urine RBC (Auto) NEGATIVE, Urine RBC NONE, Urine WBC RARE, Urine Squamous Epithelial Cells RARE, Urine Crystals NONE, Urine Bacteria NEGATIVE, Urine Casts NONE, Urine Mucus NEGATIVE, Urine Culture Indicated NO ECG Impression ECG Initial ECG Impression: Atrial Fibrillation w/RVR A/P-Cardiology Assessment/Admission Diagnosis Anemia, possible GI bleeding, CAD/PCI, Paroxysmal atrial fibrillation with rapid ventricular rate, Severe aortic stenosis, Chest pain, Hypertension, Hyperlipidemia. Plan Anemia, possible GI bleeding, received transfusion. Possible upper and lower endoscopy today. Aspirin and Eliquis were held. CAD/PCI, aspirin held. Patient is on statin. Paroxysmal atrial fibrillation with rapid ventricular rate, patient converted on Cardizem infusion. Currently in sinus rhythm. Severe aortic stenosis, echocardiogram showed borderline normal LV function, with severe aortic stenosis. Mean gradient 41 mmHg with aortic valve area of 0.9 cm. Chest pain, serial troponin negative. EKG did not reveal any acute ST-T wave abnormalities. Hypertension, mildly elevated blood pressure. Hyperlipidemia. Continue statin therapy. Thank you for your consultation. Please call me if you have any questions. Manpreet Vazquez MD, FACP, FACC, FSCAI, FHRS, CCDS Interventional Cardiology Cardiac Electrophysiology Vascular Medicine and Endovascular Interventions Clinical Quality Measures AMI/AHF: ASA po Prior to arrival: Yes DVT/VTE Risk/Contraindication: Risk Factor Score Per Nursin RFS Level Per Nursing on Admit: 4+=Very High Latisha VAZQUEZ MD Feb 27, 2018 9:21 am
[2018-02-27] MEDS: PANTOPRAZOLE 40 MG (PROTONIX) VIAL IV SCH (09:48)
[2018-02-27 15:21] LABS: HEMOGLOBIN 10.3 G/DL (11.5-16.0)
[2018-02-27] MEDS: DILTIAZEM IV FOR DRIP 125 MG in NS (IVPB) 100 ML IV SCH (17:32)
--- NOTE | 2018-02-27 21:40 | Consultation ---
History of Present Illness History of Present Illness Patient Consulted On(teresita/time) 02/27/18 21:33 Date Seen by Provider: Feb 27, 2018 Time Seen by Provider: 08:32 History of Present Illness Consult requested by Dr. Moody for GI bleed Patient is an 82-year-old female who went to the emergency department with chest burning complaint. Patient states is waxing and waning. The patient was seen to make it worse. Nothing was seen to make it much better. Patient states that she is also having some dry heaving earlier in the day. Patient recently and having dark black shiny stools. She does not ever see any red blood. Patient's stating that they been having issues with her hemoglobin and she did undergo some iron transfusions previously. Patient states that she recently did have a colonoscopy without finding source. Patient being transfused 2 units packed red blood cells today. She has no other complaints at this time. Currently she denies any nausea vomiting fever sweats chills shortness of breath or chest pain. Allergies and Home Medications Allergies Coded Allergies: Sulfa (Sulfonamide Antibiotics) (Verified Adverse Reaction, Mild, RASH, 11/21/17) Home Medications Alendronate Sodium 70 Mg Tablet, 70 MG PO Sa, (Reported) Apixaban 5 Mg Tablet, 5 MG PO BID, (Reported) Ascorbic Acid 1,000 Mg Tablet, 1,000 MG PO DAILY, (Reported) Calcium Carbonate 600 Mg Tablet, 600 MG PO BID, (Reported) Cholecalciferol (Vitamin D3) 2,000 Unit Capsule, 2,000 UNIT PO BID, (Reported) Ciprofloxacin HCl 500 Mg Tablet, 500 MG PO BID, (Reported) 7 DAY THERAPY FILLED 02-22-18 Cyanocobalamin (Vitamin B-12) 500 Mcg Tablet, 500 MCG PO DAILY, (Reported) Diltiazem HCl 180 Mg Cap.er.24h, 180 MG PO DAILY, (Reported) Diphenhydramine HCl 25 Mg Capsule, 25-50 MG PO HS, (Reported) Fenofibrate Nanocrystallized 145 Mg Tablet, 145 MG PO DAILY, (Reported) Fluticasone Propionate 16 Gm [place].susp, 1 SPRAY NS DAILY, (Reported) Folic Acid 0.4 Mg Tablet, 0.4 MG PO DAILY, (Reported) Furosemide 20 Mg Tablet, 20 MG PO DAILY, (Reported) Gluc/Renny-MSM#2/C/D3/Ruben/Born 1 Each Tablet, 1 TAB PO DAILY, (Reported) Lactobacillus Rhamnosus GG 1 Each Capsule, 1 CAP PO DAILY, (Reported) Levothyroxine Sodium 100 Mcg Tablet, 100 MCG PO DAILY, (Reported) Loratadine 10 Mg Capsule, 10 MG PO DAILY, (Reported) Lysine HCl 500 Mg Tablet, 1,000 MG PO DAILY, (Reported) Omeprazole 40 Mg Capsule.dr, 40 MG PO DAILY, (Reported) Perphenazine/Amitriptyline HCl 1 Each Tablet, 1 TAB PO BID, (Reported) Potassium Chloride 10 Meq Tab.er.prt, 10 MEQ PO DAILY, (Reported) Prednisone 20 Mg Tab, 20 MG PO BID, (Reported) 5 DAY THERAPY FILLED 02-22-18 Simvastatin 20 Mg Tablet, 20 MG PO DAILY, (Reported) Sotalol HCl 80 Mg Tablet, 80 MG PO BID, (Reported) Sucralfate 1 Gm Tablet, 1 GM PO TID, (Reported) Vitamin E 400 Unit Capsule, 400 UNIT PO DAILY, (Reported) Patient Home Medication List Home Medication List Reviewed: Yes Past Piwnspj-Zmuaxj-Holaqc Hx Patient Social History Alcohol Use: Denies Use Recreational Drug Use: No Smoking Status: Current Everyday Smoker Type Used: Cigarettes 2nd Hand Smoke Exposure: No Recent Foreign Travel: No Contact w/Someone Who Travel: No Recent Infectious Disease Expo: No Recent Hopitalizations: No Physical Abuse Screen: No Sexual Abuse: No Immunizations Up To Date Tetanus Booster (TDap): Unknown Date of Pneumonia Vaccine: Mar 07, 2017 Date of Influenza Vaccine: Mar 07, 2017 Seasonal Allergies Seasonal Allergies: Yes Surgeries History of Surgeries: Yes (PACEMAKER, KYPHOPLASTY, R LEG PLATES/SCREWS) Surgeries: Coronary Stent, Gallbladder, Hysterectomy Respiratory History of Respiratory Disorde: No Cardiovascular History of Cardiac Disorders: Yes (ANGIOPLASTY W/ STENT,1998) Cardiac Disorders: Atrial Fibrillation (paroxysmal with episodes of RVR), Heart Attack, High Cholesterol, Hypertension Neurological History of Neurological Disord: No Reproductive System : No Hx Reproductive Disorders: No Sexually Transmitted Disease: No HIV/AIDS: No Female Reproductive Disorders: Denies 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, 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 Genitourinary History of Genitourinary Disor: Yes Genitourinary Disorders: UTI-Chronic Gastrointestinal History of Gastrointestinal Di: Yes Gastrointestinal Disorders: Gastroesophageal Reflux, Diverticulosis, Ulcer Musculoskeletal History of Musculoskeletal Dis: Yes (KYPOPLASTY NOVEMBER 2011 L1) Musculoskeletal Disorders: Arthritis Endocrine History of Endocrine Disorders: Yes Endocrine Disorders: Hypothyroidsim HEENT History of HEENT Disorders: No Loss of Vision: Denies Hearing Impairment: Hard of Hearing Cancer History of Cancer: No Psychosocial History of Psychiatric Problem: No Integumentary History of Skin or Integumenta: No Blood Transfusions History of Blood Disorders: Yes (ANEMIA) Adverse Reaction to a Blood Tr: No Family Medical History Significant Family History: Heart Disease, Hypertension Family Medial History: Cardiovascular disease 19 FATHER 19 MOTHER G8 BROTHER Hypertension 19 FATHER G8 BROTHER Review of Systems-General Constitutional: no symptoms reported EENTM: no symptoms reported Respiratory: no symptoms reported Cardiovascular: see HPI Gastrointestinal: see HPI Genitourinary: no symptoms reported Musculoskeletal: no symptoms reported Skin: no symptoms reported Psychiatric/Neurological: No Symptoms Reported Physical Exam-General Problems Physical Exam Vital Signs Vital Signs - First Documented 02/26/18 18:17 Temp 98.6 Pulse 134 Resp 13 B/P (MAP) 105/78 (87) Pulse Ox 99 O2 Delivery Room Air Capillary Refill : Less Than 3 Seconds General Appearance: no apparent distress HEENT: PERRL/EOMI, normal ENT inspection Neck: non-tender, full range of motion, supple, normal inspection Respiratory: chest non-tender, no respiratory distress, no accessory muscle use Cardiovascular: regular rate, rhythm Gastrointestinal: non tender, soft, no organomegaly; No tenderness Rectal: deferred Back: normal inspection, no CVA tenderness Extremities: normal range of motion, non-tender, normal inspection Neurologic/Psychiatric: c2 tactical analysis technician II-XII nml as tested, no motor/sensory deficits, alert, normal mood/affect, oriented x 3 Skin: normal color, warm/dry Lymphatic: no adenopathy Data Review Labs Laboratory Tests 02/27/18 03:04: White Blood Count 7.6, Red Blood Count 2.38L, Hemoglobin 7.0L, Hematocrit 22L, Mean Corpuscular Volume 92, Mean Corpuscular Hemoglobin 29, Mean Corpuscular Hemoglobin Concent 32, Red Cell Distribution Width 14.7H, Platelet Count 410H, Mean Platelet Volume 9.0, Neutrophils (%) (Auto) 63, Lymphocytes (%) (Auto) 25, Monocytes (%) (Auto) 11, Eosinophils (%) (Auto) 1, Basophils (%) (Auto) 1, Neutrophils # (Auto) 4.8, Lymphocytes # (Auto) 1.9, Monocytes # (Auto) 0.8, Eosinophils # (Auto) 0.1, Basophils # (Auto) 0.0, Sodium Level 136, Potassium Level 3.8, Chloride Level 107, Carbon Dioxide Level 21, Anion Gap 8, Blood Urea Nitrogen 23H, Creatinine 0.84, Estimat Glomerular Filtration Rate > 60, BUN/ Creatinine Ratio 27, Glucose Level 90, Calcium Level 8.3L, Triglycerides Level 143, Cholesterol Level 101, LDL Cholesterol Direct 55, VLDL Cholesterol 29, HDL Cholesterol 27L 02/27/18 03:41: Urine Color YELLOW, Urine Clarity CLEAR, Urine pH 6, Urine Specific [place] 1.015L, Urine Protein NEGATIVE, Urine Glucose (UA) NEGATIVE, Urine Ketones NEGATIVE, Urine Nitrite NEGATIVE, Urine Bilirubin NEGATIVE, Urine Urobilinogen 1 , Urine Leukocyte Esterase 1+H, Urine RBC (Auto) NEGATIVE, Urine RBC NONE, Urine WBC RARE, Urine Squamous Epithelial Cells RARE, Urine Crystals NONE, Urine Bacteria NEGATIVE, Urine Casts NONE, Urine Mucus NEGATIVE, Urine Culture Indicated NO 02/27/18 15:05: Hemoglobin 10.3#L, Hematocrit 30L, Troponin I < 0.30 Assessment/Plan Assessment/Plan Assessment/Plan Patient is a 82-year-old female with atrial fibrillation with RVR which has converted to normal sinus rhythm. Patient with anemia secondary to GI bleeding which I feel is upper due to black stools. She recently had colonoscopy. We will plan on EGD tomorrow since patient's on Eliquis which is on hold to evaluate. If no source found would consider colonoscopy repeating it. Patient was discussed risk and benefits of EGD which her understand wish to proceed. Would recommend continue on Protonix. Further recommendations pending results of EGD. Clinical Quality Measures AMI/AHF: ASA po Prior to arrival: Yes DVT/VTE Risk/Contraindication: Risk Factor Score Per Nursin RFS Level Per Nursing on Admit: 4+=Very High CARLOS JACOBS DO Feb 27, 2018 21:40
[2018-02-28 04:00] VITALS: BP 141/81
[2018-02-28 04:10] LABS: BASOPHILS % (AUTO) 1 % (0-10); EOSINOPHILS # (AUTO) 0.2 10^3/uL (0.0-0.3); EOSINOPHILS % (AUTO) 3 % (0-10); HEMATOCRIT 32 % (35-52); HEMOGLOBIN 10.5 G/DL (11.5-16.0); LYMPHOCYTES # (AUTO) 1.5 X 10^3 (1.0-4.0); LYMPHOCYTES % (AUTO) 21 % (12-44); MEAN CORPUSCULAR HEMOGLOBIN 30 PG (25-34); MEAN CORPUSCULAR HGB CONC 33 G/DL (32-36); MEAN CORPUSCULAR VOLUME 92 FL (80-99); MEAN PLATELET VOLUME 9.2 FL (7.4-10.4); MONOCYTES % (AUTO) 15 % (0-12); NEUTROPHILS # (AUTO) 4.2 X 10^3 (1.8-7.8); NEUTROPHILS % (AUTO) 61 % (42-75); PLATELET COUNT 397 10^3/uL (130-400); RED BLOOD COUNT 3.52 10^6/uL (4.35-5.85); RED CELL DISTRIBUTION WIDTH 14.6 % (10.0-14.5); WHITE BLOOD COUNT 6.9 10^3/uL (4.3-11.0)
[2018-02-28 04:29] LABS: BUN/CREATININE RATIO 18; CALCIUM 8.8 MG/DL (8.5-10.1); CARBON DIOXIDE 21 MMOL/L (21-32); CHLORIDE 106 MMOL/L (98-107); CREATININE SERUM 0.76 MG/DL (0.60-1.30); GFR ESTIMATED > 60; GLUCOSE 82 MG/DL (70-105); MAGNESIUM 1.9 MG/DL (1.8-2.4); POTASSIUM 3.6 MMOL/L (3.6-5.0); SODIUM 137 MMOL/L (135-145)
[2018-02-28 08:00] VITALS: BP 156/86
[2018-02-28] MEDS ORDERED: SIMvastatin 20 MG (ZOCOR) TAB PO SCH (09:00)
[2018-02-28] MEDS: PANTOPRAZOLE 40 MG (PROTONIX) VIAL IV SCH (09:09)
[2018-02-28] MEDS: LEVOTHYROXINE 100 MCG (LEVOTHROID) TAB PO SCH (09:10)
[2018-02-28] MEDS: SIMvastatin 10 MG (ZOCOR) TAB PO SCH (09:11)
[2018-02-28] MEDS: DILTIAZEM 120 MG (CARDIZEM CD) CAP PO SCH (09:11)
[2018-02-28] MEDS ORDERED: LACTATED RINGERS 1,000 ML IV ONE (09:16)
[2018-02-28] MEDS ORDERED: proPOfol 200 MG/20 ML (DIPRIVAN) VIAL IV ONE (09:18)
--- NOTE | 2018-02-28 09:55 | Progress Note-Pre Operative ---
Pre-Operative Progress Note H&P Reviewed The H&P was reviewed, patient examined and no changes noted. Date Seen by Provider: Feb 28, 2018 Time Seen by Provider: : Date H&P Reviewed: Feb 28, 2018 Time H&P Reviewed: : Pre-Operative Diagnosis: anemia, melena, upper gi bleed CARLOS JACOBS DO Feb 28, 2018 09:55
--- NOTE | 2018-02-28 09:56 | Progress Note-Post Operative ---
Post-Operative Progess Note Surgeon (s)/Inspector Cold Working (s) Surgeon CARLOS JACOBS DO Inspector Cold Working: na Pre-Operative Diagnosis anemia, melena, upper gi bleed Post-Operative Diagnosis ulceration at pylorus, hiatal hernia Procedure & Operative Findings Date of Procedure 02/28/18 Procedure Performed/Findings egd Anesthesia Type per final touch up painter Estimated Blood Loss Estimated blood loss (mL): min Specimens/Packing Specimens Removed na CARLOS JACOBS DO Feb 28, 2018 09:56
--- NOTE | 2018-02-28 11:24 | Anesthesia-General Post-Op ---
MAC Patient Condition Mental Status/LOC: Same as Preop Cardiovascular: Satisfactory Nausea/Vomiting: Absent Respiratory: Satisfactory Pain: Controlled Complications: Absent Post Op Complications Complications None Follow Up Care/Instructions Patient Instructions None needed. Anesthesiology Discharge Order Discharge Order Patient is doing well, no complaints, stable vital signs, no apparent adverse anesthesia problems. No complications reported per nursing. OMKAR CEBALLOS CRNA Feb 28, 2018 11:24
[2018-02-28 12:00] VITALS: BP 146/76
--- NOTE | 2018-02-28 12:52 | Cardiology Progress Note ---
Cardiology SOAP Progress Note Subjective: No chest pain, shortness of breath. Objective: I&O/Vital Signs 02/28/18 02/28/18 02/28/18 02/28/18 01:00 01:45 03:00 03:45 Pulse 104 Pulse Ox 96 O2 Delivery Nasal Cannula Room Air Nasal Cannula O2 Flow Rate 2.00 2.00 02/28/18 02/28/18 02/28/18 02/28/18 04:00 07:00 08:00 08:00 Temp 99.0 98.5 Pulse 99 100 101 Resp 21 18 B/P (MAP) 141/81 (101) 156/86 (109) Pulse Ox 91 94 94 O2 Delivery Room Air Room Air Room Air 02/28/18 08:58 Pulse Ox 94 O2 Delivery Room Air 02/28/18 00:00 Intake Total 555 ml Output Total 1130 ml Balance -575 ml Weight (Pounds): 147 Weight (Ounces): 3.0 Weight (Calculated Kilograms): 66.602324 Constitutional: appears stated age, AAO x 3; No apparent distress; well- developed, well-nourished Respiratory: No accessory muscle use, No respiratory distress, No chest tender , No chest expansion is symmetric; chest is bilaterally symmetric; No lungs clear to percussion; lungs clear to auscultation; No crackles, No rhonchi, No rales, No stridor, No wheezing, No pleural rub, No other Cardiovascular: regular rate-rhythm; No irregularly irregular, No extra beats, No parasternal heave is noted, No JVD, No edema, No bradycardia, No tachycardia , No point of maximal impulse, No cardiac thrills are palpable; S1 and S2; No gallop/S3, No gallop/S4, No diastolic murmur; systolic murmur; No friction rub, No click, No other Gastrointestional: No tender, No soft, No round, No distended, No pulsatile mass, No organomegaly, No guarding, No rebound, No tenderness, No hernia, No mass, No audible bowel sounds, No abnormal bowel sounds, No abdominal bruits, No spleenomegaly, No other Extremities: No normal range of motion, No non-tender, No normal inspection, No pedal edema, No calf tenderness, No normal capillary refill, No pelvis stable , No calf tenderness, No inflammation, No pedal edema, No slow capillary refill , No swelling, No other, No abrasion, No clubbing, No cyanosis, No ecchymosis, No laceration, No no lower extremity edema bilateral, No significant edema, No tenderness, No wound Neurologic/Psychiatric: no motor/sensory deficits, alert, normal mood/affect, oriented x 3, power is 5/5 both on sides Skin: No normal color, No warm/dry, No cyanosis, No cool, No diaphoresis, No damp, No ecchymosis, No jaundice, No mottled, No pallor, No rash, No tattoos/ piercings, No ulcerations, No rash on exposed areas, No ulcerations on exposed areas, No other Results/Procedures: Labs Laboratory Tests 02/27/18 15:05: Hemoglobin 10.3#L, Hematocrit 30L, Troponin I < 0.30 02/28/18 03:10: Hemoglobin 10.5L, Hematocrit 32L, White Blood Count 6.9, Red Blood Count 3.52L, Mean Corpuscular Volume 92, Mean Corpuscular Hemoglobin 30, Mean Corpuscular Hemoglobin Concent 33, Red Cell Distribution Width 14.6H, Platelet Count 397, Mean Platelet Volume 9.2, Neutrophils (%) (Auto) 61, Lymphocytes (%) (Auto) 21, Monocytes (%) (Auto) 15H, Eosinophils (%) (Auto) 3, Basophils (%) (Auto) 1, Neutrophils # (Auto) 4.2, Lymphocytes # (Auto) 1.5, Monocytes # (Auto) 1.0, Eosinophils # (Auto) 0.2, Basophils # (Auto) 0.0, Sodium Level 137, Potassium Level 3.6, Chloride Level 106, Carbon Dioxide Level 21, Anion Gap 10, Blood Urea Nitrogen 14, Creatinine 0.76, Estimat Glomerular Filtration Rate > 60, BUN/ Creatinine Ratio 18, Glucose Level 82, Calcium Level 8.8, Magnesium Level 1.9 02/28/18 12:05: Lab Scanned Report Transfusion Reaction Form 02/28/18 12:10: Lab Scanned Report Transfusion Reaction Form A/P: Assessment/Dx: Anemia, possible GI bleeding, CAD/PCI, Paroxysmal atrial fibrillation with rapid ventricular rate, Severe aortic stenosis, Chest pain, Hypertension, Hyperlipidemia. Plan: Anemia, possible GI bleeding, received transfusion. Upper endoscopy showed gastric ulcer. Eliquis to be started tomorrow. CAD/PCI, aspirin held. Patient is on statin. Paroxysmal atrial fibrillation with rapid ventricular rate, patient converted on Cardizem infusion. Currently in sinus rhythm. Restart Eliquis in the morning. Severe aortic stenosis, echocardiogram showed borderline normal LV function, with severe aortic stenosis. Mean gradient 41 mmHg with aortic valve area of 0.9 cm. I will discuss with Dr. Hanna in [facility] and develop a plan for addressing aortic stenosis. Chest pain, serial troponin negative. EKG did not reveal any acute ST-T wave abnormalities. Hypertension, mildly elevated blood pressure. Hyperlipidemia. Continue statin therapy. Statin dose decreased due to possible interaction between simvastatin and Cardizem. Thank you for your consultation. Please call me if you have any questions. Manpreet Vazquez MD, FACP, FACC, FSCAI, FHRS, CCDS Interventional Cardiology Cardiac Electrophysiology Vascular Medicine and Endovascular Interventions Clinical Quality Measures AMI/AHF: ASA po Prior to arrival: Yes Latisha VAZQUEZ MD Feb 28, 2018 12:52 pm
--- NOTE | 2018-02-28 15:07 | OPERATIVE REPORT ---
DATE OF SERVICE: 02/28/2018 PREOPERATIVE DIAGNOSES: 1. Anemia. 2. Upper gastrointestinal bleed. POSTOPERATIVE DIAGNOSIS: Pyloric ulcer. PROCEDURE: EGD. SURGEON: Carlos Abbasi DO ANESTHESIA: Per SITE SUPERINTENDENT. ESTIMATED BLOOD LOSS: Minimal. COMPLICATIONS: None. INDICATIONS: The patient is an 82-year-old female with anemia and suspected upper GI bleed and melena. She was explained of risks and benefits of having EGD performed. She understands risks and benefits and wished to proceed. Consent was signed on the chart. DESCRIPTION OF PROCEDURE: The patient was scoped in the Intensive Care Unit. Once anesthetic effect took place, timeout was performed. Scope was inserted into the mouth down the esophagus and into the stomach. The pylorus has a little bit of narrowing, which apparent that a slight ulceration present. Scope was able to be passed through this, did cause a little bit of trauma to the ulceration, but very minimal. The scope was further advanced into the duodenum. There are no polyps, mass or ulcerations within the duodenum. Scope was slowly retracted back noting the pylorus ulceration. Scope was retroflexed noting no other pathology. Scope was returned to its normal position, slowly withdrawn to the distal esophagus. There were no polyps, mass or ulcerations. The scope was slowly retracted until completely removed. The patient tolerated the procedure well without any complications. She was taken to recovery room. She was monitored in recovery phase. The patient will continue on Protonix. I would recommend repeat EGD in about 6 weeks to reexamine the area. Continue medical management. Job ID: [id number] DocumentID: [id number] Dictated Date: 02/28/2018 12:37:00 Burrer Marker Axle Date: 02/28/2018 15:06:41 Dictated By: CARLOS ABBASI DO
--- NOTE | 2018-02-28 15:17 | Progress Note (SOAP) ---
Subjective Subjective Date Seen by Provider: Feb 28, 2018 Time Seen by Provider: 07:10 Pt did have another dark (digested blood) BM last night. She also refused supplemental oxygen after trying it for a little while. Hgb stable at 10. She is aware of getting the EGD this AM. Denies any chest pain. Review of Systems General: No Chills, No Night Sweats HEENT: No Head Aches, No Visual Changes Pulmonary: No Dyspnea, No Cough Cardiovascular: No: Chest Pain, Palpitations Gastrointestinal: No: Nausea, Vomiting, Abdominal Pain, Diarrhea, Constipation Genitourinary: No Dysuria, No Frequency Musculoskeletal: No: neck pain, shoulder pain Neurological: No: Weakness, Confusion Objective Exam Vital Signs Vital Signs - First Documented 02/26/18 18:17 Temp 98.6 Pulse 134 Resp 13 B/P (MAP) 105/78 (87) Pulse Ox 99 O2 Delivery Room Air Capillary Refill : Less Than 3 Seconds General Appearance: No Apparent Distress, WD/WN HEENT: PERRL/EOMI Neck: Non Tender, Supple, Carotid Bruit (l/r) Respiratory: Chest Non Tender, Lungs Clear, Normal Breath Sounds, No Accessory Muscle Use, No Respiratory Distress Cardiovascular: Regular Rate, Rhythm, Systolic Murmur (grade 3/6) Gastrointestinal: Non Tender, Soft Rectal: Deferred Back: Normal Inspection, No CVA Tenderness Extremity: Normal Inspection, Normal Range of Motion, Non Tender, No Calf Tenderness Neurologic/Psychiatric: Alert, Oriented x3, No Motor/Sensory Deficits, Normal Mood/Affect Skin: Normal Color, Warm/Dry Results Lab Laboratory Tests 02/28/18 03:10: White Blood Count 6.9, Red Blood Count 3.52L, Hemoglobin 10.5L, Hematocrit 32L, Mean Corpuscular Volume 92, Mean Corpuscular Hemoglobin 30, Mean Corpuscular Hemoglobin Concent 33, Red Cell Distribution Width 14.6H, Platelet Count 397, Mean Platelet Volume 9.2, Neutrophils (%) (Auto) 61, Lymphocytes (%) (Auto) 21, Monocytes (%) (Auto) 15H, Eosinophils (%) (Auto) 3, Basophils (%) (Auto) 1, Neutrophils # (Auto) 4.2, Lymphocytes # (Auto) 1.5, Monocytes # (Auto) 1.0, Eosinophils # (Auto) 0.2, Basophils # (Auto) 0.0, Sodium Level 137, Potassium Level 3.6, Chloride Level 106, Carbon Dioxide Level 21, Anion Gap 10, Blood Urea Nitrogen 14, Creatinine 0.76, Estimat Glomerular Filtration Rate > 60, BUN/ Creatinine Ratio 18, Glucose Level 82, Calcium Level 8.8, Magnesium Level 1.9 02/28/18 12:05: Lab Scanned Report Transfusion Reaction Form 02/28/18 12:10: Lab Scanned Report Transfusion Reaction Form Assessment/Plan Assessment/Plan Admission Dx atrial fibrillation with RVR GI bleed Assessment and Plan 82 yo F atrial fibrillation with RVR- converted to NSR in the ED with diltiazem. Dr. Vazquez consulted- continue diltiazem - 2-D ECHO ordered- severe aortic stenosis paroxysmal atrial fibrillation- asa, eliquis held. acute blood loss anemia from GI bleed- transfuse 2 units pRBC 02/27/18- recheck hgb staying at 10. gastric ulcer- Dr. Abbasi consulted- EGD noted to have gastric ulcer; continue protonix HTN- on diltiazem, monitor bp HLD- continue statin hypothyroidism- continue levothyroxine 100mcg TSH low, free T4 normal CAD- Dr. Vazquez consulted Aortic stenosis- follows with cardiology- will be working with Dr Hanna per cardiology Dispo: EGD revealed an ulcer- Dr. Vazquez resuming eliquis tomorrow. Dr. Cabrera to resume care in AM. Admission Dx atrial fibrillation with RVR GI bleed Clinical Quality Measures Admission Status Admission Dx atrial fibrillation with RVR GI bleed AMI/AHF: ASA po Prior to arrival: Yes DVT/VTE Risk/Contraindication: Risk Factor Score Per Nursin RFS Level Per Nursing on Admit: 4+=Very High GOGO COLMENARES MD Feb 28, 2018 15:17
[2018-02-28 16:00] VITALS: BP 156/84
[2018-02-28 18:00] VITALS: BP 151/76
[2018-02-28 20:42] VITALS: BP 158/91
[2018-03-01] VITALS: BP 152/77
[2018-03-01 04:20] VITALS: BP 162/79
[2018-03-01 04:25] LABS: BASOPHILS % (AUTO) 0 % (0-10); EOSINOPHILS # (AUTO) 0.2 10^3/uL (0.0-0.3); EOSINOPHILS % (AUTO) 2 % (0-10); HEMATOCRIT 32 % (35-52); HEMOGLOBIN 10.8 G/DL (11.5-16.0); LYMPHOCYTES # (AUTO) 1.1 X 10^3 (1.0-4.0); LYMPHOCYTES % (AUTO) 15 % (12-44); MEAN CORPUSCULAR HEMOGLOBIN 31 PG (25-34); MEAN CORPUSCULAR HGB CONC 34 G/DL (32-36); MEAN CORPUSCULAR VOLUME 91 FL (80-99); MEAN PLATELET VOLUME 8.9 FL (7.4-10.4); MONOCYTES # (AUTO) 1.1 X 10^3 (0.0-1.0); MONOCYTES % (AUTO) 15 % (0-12); NEUTROPHILS # (AUTO) 5.1 X 10^3 (1.8-7.8); NEUTROPHILS % (AUTO) 68 % (42-75); PLATELET COUNT 376 10^3/uL (130-400); RED BLOOD COUNT 3.49 10^6/uL (4.35-5.85); RED CELL DISTRIBUTION WIDTH 14.2 % (10.0-14.5); WHITE BLOOD COUNT 7.5 10^3/uL (4.3-11.0)
[2018-03-01 04:40] LABS: ALBUMIN 3.2 GM/DL (3.2-4.5); BUN/CREATININE RATIO 17; CALCIUM 8.9 MG/DL (8.5-10.1); CARBON DIOXIDE 22 MMOL/L (21-32); CHLORIDE 104 MMOL/L (98-107); CREATININE SERUM 0.71 MG/DL (0.60-1.30); GFR ESTIMATED > 60; GLUCOSE 102 MG/DL (70-105); PHOSPHORUS 2.2 MG/DL (2.3-4.7); POTASSIUM 3.4 MMOL/L (3.6-5.0); SODIUM 136 MMOL/L (135-145)
[2018-03-01 08:00] VITALS: BP 188/84
[2018-03-01] MEDS ORDERED: APIXABAN 5 MG (ELIQUIS) TABLET PO SCH (08:00)
[2018-03-01] MEDS: LEVOTHYROXINE 100 MCG (LEVOTHROID) TAB PO SCH (08:23)
[2018-03-01] MEDS: PANTOPRAZOLE 40 MG (PROTONIX) VIAL IV SCH (08:23)
[2018-03-01] MEDS: SIMvastatin 10 MG (ZOCOR) TAB PO SCH (08:23)
[2018-03-01] MEDS: DILTIAZEM 120 MG (CARDIZEM CD) CAP PO SCH (08:23)
--- NOTE | 2018-03-01 09:40 | Discharge Summary ---
Diagnosis/Chief Complaint Date of Admission Feb 26, 2018 at 20:24 Date of Discharge Discharge Summary Discharge Physical Examination Allergies: Coded Allergies: Sulfa (Sulfonamide Antibiotics) (Verified Adverse Reaction, Mild, RASH, 11/21/17) Vitals & I&Os Vital Signs Date Time Temp Pulse Resp B/P (MAP) Pulse Ox O2 Delivery O2 Flow Rate FiO2 03/01/18 08:50 94 Room Air 03/01/18 08:00 98.5 94 18 188/84 (118) 02/28/18 23:31 2.00 Hospital Course Pending Labs Laboratory Tests 03/01/18 04:15: White Blood Count 7.5, Red Blood Count 3.49, Hemoglobin 10.8, Hematocrit 32, Mean Corpuscular Volume 91, Mean Corpuscular Hemoglobin 31, Mean Corpuscular Hemoglobin Concent 34, Red Cell Distribution Width 14.2, Platelet Count 376, Mean Platelet Volume 8.9, Neutrophils (%) (Auto) 68, Lymphocytes (%) (Auto) 15, Monocytes (%) (Auto) 15, Eosinophils (%) (Auto) 2, Basophils (%) (Auto) 0, Neutrophils # (Auto) 5.1, Lymphocytes # (Auto) 1.1, Monocytes # (Auto) 1.1, Eosinophils # (Auto) 0.2, Basophils # (Auto) 0.0, Sodium Level 136, Potassium Level 3.4, Chloride Level 104, Carbon Dioxide Level 22, Anion Gap 10, Blood Urea Nitrogen 12, Creatinine 0.71, Estimat Glomerular Filtration Rate > 60, BUN/ Creatinine Ratio 17, Glucose Level 102, Calcium Level 8.9, Phosphorus Level 2.2 , Albumin 3.2 Discharge Instructions to patient/family Please see electronic discharge instructions given to patient. Discharge Medications Reviewed and agree with Discharge Medication list on patient's Discharge Instruction sheet Clinical Quality Measures AMI/AHF: ASA po Prior to arrival: Yes DVT/VTE Risk/Contraindication: Risk Factor Score Per Nursin RFS Level Per Nursing on Admit: 4+=Very High LUKE TANG MD Mar 01, 2018 09:40
[2018-03-01] MEDS ORDERED: DILT120C63 PO ×2 (09:43)
--- NOTE | 2018-03-01 09:45 | Discharge Inst-Complex ---
[facility] Med Rec & Follow Up Appt. New Medications: Diltiazem HCl (Diltiazem 24Hr Cd) 120 Mg Cap.er.24h 120 MG PO DAILY, #30 CAP 6 Refills Continued Medications: Apixaban (Eliquis) 5 Mg Tablet 5 MG PO BID, TAB Calcium Carbonate (Calcium) 600 Mg Tablet 600 MG PO BID, TAB Cholecalciferol (Vitamin D3) (Vitamin D3) 2,000 Unit Capsule 2000 UNIT PO BID, CAP Ciprofloxacin HCl (Ciprofloxacin HCl) 500 Mg Tablet 500 MG PO BID for 7 Days, TAB 7 DAY THERAPY FILLED 02-22-18 Cyanocobalamin (Vitamin B-12) (B-12) 500 Mcg Tablet 500 MCG PO DAILY, TAB Fenofibrate Nanocrystallized (Fenofibrate) 145 Mg Tablet 145 MG PO DAILY, TAB Fluticasone Propionate (Fluticasone Propionate) 16 Gm Leonard.susp 1 SPRAY NS DAILY, EA Folic Acid (Folic Acid) 0.4 Mg Tablet 0.4 MG PO DAILY, TAB Furosemide (Furosemide) 20 Mg Tablet 20 MG PO DAILY, TAB Gluc/Renny-MSM#2/C/D3/Ruben/Born (Hwayzrvpor-Jpjminsuiyv-HSS Tab) 1 Each Tablet 1 TAB PO DAILY, TAB Lactobacillus Rhamnosus GG (Culturelle) 1 Each Capsule 1 CAP PO DAILY, CAP Levothyroxine Sodium (Synthroid) 100 Mcg Tablet 100 MCG PO DAILY, TAB Loratadine (Claritin) 10 Mg Capsule 10 MG PO DAILY, CAP Lysine HCl (l-Lysine) 500 Mg Tablet 1000 MG PO DAILY, TAB Omeprazole (Omeprazole) 40 Mg Capsule.dr 40 MG PO DAILY, CAP Perphenazine/Amitriptyline HCl (Perphen-Amitrip 2 mg-10 mg Tab) 1 Each Tablet 1 TAB PO BID, TAB Potassium Chloride (Klor-Con M10) 10 Meq Tab.er.prt 10 MEQ PO DAILY, TAB Simvastatin (Simvastatin) 20 Mg Tablet 20 MG PO DAILY, TAB Sucralfate (Sucralfate) 1 Gm Tablet 1 GM PO TID, TAB Discontinued Medications: Alendronate Sodium (Alendronate Sodium) 70 Mg Tablet 70 MG PO Sa, TAB Ascorbic Acid (Vitamin C) 1,000 Mg Tablet 1000 MG PO DAILY, TAB Diltiazem HCl (Diltiazem 24Hr ER) 180 Mg Cap.er.24h 180 MG PO DAILY, CAP Diphenhydramine HCl (Diphenhydramine HCl) 25 Mg Capsule 25-50 MG PO HS, CAP Prednisone (Prednisone) 20 Mg Tab 20 MG PO BID for 5 Days, TAB 5 DAY THERAPY FILLED 02-22-18 Sotalol HCl (Sotalol) 80 Mg Tablet 80 MG PO BID, TAB Vitamin E (Vitamin E) 400 Unit Capsule 400 UNIT PO DAILY, CAP Prescription: Transmitted to Pharmacy Patient Instructions: follow up 1 wk [facility], 2 wks bocanegra, 2 wks cardiology Activity, Diet and PDI Discharge Diet: Other Diet (bland diet x 2 wks then advance as tolerated) Diet for 24 Hours: No Alcohol, No Mena Foods, No Spicy Foods Diet After 24 Hours: Clear Liquid if Nauseous Drink 6-8 Glasses of Fluid/Day: Yes Driving Instructions: No Driving for 24 Hours Symptoms to Reoprt to DrTrev: Appetite Changes, Bleeding Excessive, Constipation( Persistant), Fever Over 101 Degrees F, Pain/Pressure in Chest, Cough Up/Vomit Blood, Diarrhea(Persistant), Questions/Concerns, Dizziness/Fainting, Shortness of Breath For Problems or Questions: Contact Your Physician, Go to Emergency Room LUKE TANG MD Mar 01, 2018 09:45
[2018-03-01] MEDS ORDERED: SOTA80TA PO ×2 (10:08)
--- NOTE | 2018-03-01 11:18 | Cardiology Progress Note ---
Cardiology SOAP Progress Note Subjective: Significantly improved symptoms. Objective: I&O/Vital Signs 02/28/18 03/01/18 03/01/18 03/01/18 23:31 00:00 00:00 01:00 Temp 97.7 Pulse 90 100 Resp 14 B/P (MAP) 152/77 (102) Pulse Ox 94 94 O2 Delivery Nasal Cannula Room Air Room Air O2 Flow Rate 2.00 03/01/18 03/01/18 03/01/18 03/01/18 04:00 04:20 07:00 08:00 Temp 97.5 Pulse 92 93 99 Resp 16 18 B/P (MAP) 162/79 (106) 188/84 (118) Pulse Ox 94 93 O2 Delivery Room Air Room Air Room Air 03/01/18 03/01/18 03/01/18 08:00 08:00 08:50 Temp 98.5 Pulse 94 Resp 18 B/P (MAP) 188/84 (118) Pulse Ox 96 96 94 O2 Delivery Room Air Room Air Room Air 03/01/18 00:00 Intake Total 590 ml Output Total 800 ml Balance -210 ml Weight (Pounds): 149 Weight (Ounces): 5.0 Weight (Calculated Kilograms): [id number] Constitutional: appears stated age, AAO x 3; No apparent distress; well- developed, well-nourished Respiratory: No accessory muscle use, No respiratory distress, No chest tender , No chest expansion is symmetric; chest is bilaterally symmetric; No lungs clear to percussion; lungs clear to auscultation; No crackles, No rhonchi, No rales, No stridor, No wheezing, No pleural rub, No other Cardiovascular: regular rate-rhythm; No irregularly irregular, No extra beats, No parasternal heave is noted, No JVD, No edema, No bradycardia, No tachycardia , No point of maximal impulse, No cardiac thrills are palpable; S1 and S2; No gallop/S3, No gallop/S4, No diastolic murmur; systolic murmur; No friction rub, No click, No other Gastrointestional: No tender, No soft, No round, No distended, No pulsatile mass, No organomegaly, No guarding, No rebound, No tenderness, No hernia, No mass, No audible bowel sounds, No abnormal bowel sounds, No abdominal bruits, No spleenomegaly, No other Extremities: No normal range of motion, No non-tender, No normal inspection, No pedal edema, No calf tenderness, No normal capillary refill, No pelvis stable , No calf tenderness, No inflammation, No pedal edema, No slow capillary refill , No swelling, No other, No abrasion, No clubbing, No cyanosis, No ecchymosis, No laceration, No no lower extremity edema bilateral, No significant edema, No tenderness, No wound Neurologic/Psychiatric: no motor/sensory deficits, alert, normal mood/affect, oriented x 3, power is 5/5 both on sides Skin: No normal color, No warm/dry, No cyanosis, No cool, No diaphoresis, No damp, No ecchymosis, No jaundice, No mottled, No pallor, No rash, No tattoos/ piercings, No ulcerations, No rash on exposed areas, No ulcerations on exposed areas, No other Results/Procedures: Labs Laboratory Tests 02/28/18 12:05: Lab Scanned Report Transfusion Reaction Form 02/28/18 12:10: Lab Scanned Report Transfusion Reaction Form 03/01/18 04:15: White Blood Count 7.5, Red Blood Count 3.49L, Hemoglobin 10.8L, Hematocrit 32L, Mean Corpuscular Volume 91, Mean Corpuscular Hemoglobin 31, Mean Corpuscular Hemoglobin Concent 34, Red Cell Distribution Width 14.2, Platelet Count 376, Mean Platelet Volume 8.9, Neutrophils (%) (Auto) 68, Lymphocytes (%) (Auto) 15, Monocytes (%) (Auto) 15H, Eosinophils (%) (Auto) 2, Basophils (%) (Auto) 0, Neutrophils # (Auto) 5.1, Lymphocytes # (Auto) 1.1, Monocytes # (Auto) 1.1H, Eosinophils # (Auto) 0.2, Basophils # (Auto) 0.0, Sodium Level 136, Potassium Level 3.4L, Chloride Level 104, Carbon Dioxide Level 22, Anion Gap 10, Blood Urea Nitrogen 12, Creatinine 0.71, Estimat Glomerular Filtration Rate > 60, BUN/ Creatinine Ratio 17, Glucose Level 102, Calcium Level 8.9, Phosphorus Level 2.2L , Albumin 3.2 A/P: Assessment/Dx: Anemia, possible GI bleeding, CAD/PCI, Paroxysmal atrial fibrillation with rapid ventricular rate, Severe aortic stenosis, Chest pain, Hypertension, Hyperlipidemia. Plan: Anemia, possible GI bleeding, received transfusion. Upper endoscopy showed gastric ulcer. Eliquis to be started today. CAD/PCI, aspirin held. Patient is on statin. Paroxysmal atrial fibrillation with rapid ventricular rate, patient converted on Cardizem infusion. Currently in sinus rhythm. Eliquis and sotalol will be restarted. Severe aortic stenosis, echocardiogram showed borderline normal LV function, with severe aortic stenosis. Mean gradient 41 mmHg with aortic valve area of 0.9 cm. I will discuss with Dr. Hanna in [facility] and develop a plan for addressing aortic stenosis. Chest pain, serial troponin negative. EKG did not reveal any acute ST-T wave abnormalities. Hypertension, mildly elevated blood pressure. Hyperlipidemia. Continue statin therapy. Statin dose decreased due to possible interaction between simvastatin and Cardizem. Thank you for your consultation. Please call me if you have any questions. Manpreet Vazquez MD, FACP, FACC, FSCAI, FHRS, CCDS Interventional Cardiology Cardiac Electrophysiology Vascular Medicine and Endovascular Interventions Clinical Quality Measures AMI/AHF: ASA po Prior to arrival: Yes Latisha VAZQUEZ MD Mar 01, 2018 11:18 am
[2018-03-01 12:00] VITALS: BP 147/82
--- NOTE | 2018-03-01 12:08 | Progress Note ---
Subjective Date Seen by a Provider: Mar 01, 2018 Time Seen by a Provider: 08:11 Subjective/Events-last exam Patient hgb stable. No issues today. EGD yesterday pyloric ulceration. Started back on Eliquis this morning. Not having any abdominal pain. Denies n/v fever sweats chills shortness of breath or chest pain. Objective Exam Vital Signs Date Time Temp Pulse Resp B/P (MAP) Pulse Ox O2 Delivery O2 Flow Rate FiO2 03/01/18 08:50 94 Room Air 03/01/18 08:00 98.5 94 18 188/84 (118) 96 Room Air 03/01/18 08:00 96 Room Air 03/01/18 08:00 99 18 188/84 (118) Room Air 03/01/18 07:00 93 03/01/18 04:20 97.5 92 16 162/79 (106) 93 Room Air 03/01/18 04:00 94 Room Air 03/01/18 01:00 100 03/01/18 00:00 97.7 90 14 152/77 (102) 94 Room Air 03/01/18 00:00 94 Room Air 02/28/18 23:31 Nasal Cannula 2.00 02/28/18 21:00 94 Room Air 02/28/18 20:42 98.9 93 16 158/91 (113) 94 Room Air 02/28/18 20:00 94 Room Air 02/28/18 19:00 98 02/28/18 18:00 98 26 151/76 (101) Room Air 02/28/18 16:00 95 Room Air 02/28/18 16:00 98.2 92 16 156/84 (108) 95 Room Air 02/28/18 13:00 112 I & O 03/01/18 07:00 Intake Total 690 ml Output Total 1000 ml Balance -310 ml Capillary Refill : Less Than 3 Seconds General Appearance: No Apparent Distress, WD/WN HEENT: PERRL/EOMI Neck: Normal Inspection, Non Tender, Supple Respiratory: Chest Non Tender, Lungs Clear, Normal Breath Sounds, No Accessory Muscle Use, No Respiratory Distress Cardiovascular: Regular Rate, Rhythm Gastrointestinal: non tender, soft, no organomegaly; No tenderness Extremity: Normal Inspection, Normal Range of Motion, Non Tender, No Calf Tenderness Neurologic/Psychiatric: Alert, Oriented x3, No Motor/Sensory Deficits, Normal Mood/Affect Skin: Normal Color, Warm/Dry Results Lab Laboratory Tests 02/28/18 12:05: Lab Scanned Report Transfusion Reaction Form 02/28/18 12:10: Lab Scanned Report Transfusion Reaction Form 03/01/18 04:15: White Blood Count 7.5, Red Blood Count 3.49L, Hemoglobin 10.8L, Hematocrit 32L, Mean Corpuscular Volume 91, Mean Corpuscular Hemoglobin 31, Mean Corpuscular Hemoglobin Concent 34, Red Cell Distribution Width 14.2, Platelet Count 376, Mean Platelet Volume 8.9, Neutrophils (%) (Auto) 68, Lymphocytes (%) (Auto) 15, Monocytes (%) (Auto) 15H, Eosinophils (%) (Auto) 2, Basophils (%) (Auto) 0, Neutrophils # (Auto) 5.1, Lymphocytes # (Auto) 1.1, Monocytes # (Auto) 1.1H, Eosinophils # (Auto) 0.2, Basophils # (Auto) 0.0, Sodium Level 136, Potassium Level 3.4L, Chloride Level 104, Carbon Dioxide Level 22, Anion Gap 10, Blood Urea Nitrogen 12, Creatinine 0.71, Estimat Glomerular Filtration Rate > 60, BUN/ Creatinine Ratio 17, Glucose Level 102, Calcium Level 8.9, Phosphorus Level 2.2L , Albumin 3.2 Assessment/Plan Assessment/Plan Assessment/Plan 82 yo F pyloric ulceration causing upper GI bleed afib with rvr, would continue protonix and repeat egd in about 6 weeks if hgb remains stable okay to id home. Clinical Quality Measures AMI/AHF: ASA po Prior to arrival: Yes DVT/VTE Risk/Contraindication: Risk Factor Score Per Nursin RFS Level Per Nursing on Admit: 4+=Very High CARLOS JACOBS DO Mar 01, 2018 12:08
[2018-03-01 12:54] LABS: MEAN PLATELET VOLUME 8.7 FL (7.4-10.4); RED BLOOD COUNT 3.68 10^6/uL (4.35-5.85); RED CELL DISTRIBUTION WIDTH 14.4 % (10.0-14.5); WHITE BLOOD COUNT 7.1 10^3/uL (4.3-11.0)
== END 2018-03-01 13:35 | disposition home or self-care (01) | DRG 378 ==
LOC: EDUNIT# 18:14 → ER 18:16 → ICU 20:24
PROVIDERS: ADMIT Internal Medicine; ATTEND Family Medicine
PROC: 0DJ08ZZ Inspection of Upper Intestinal Tract, Via Natural or Artificial Opening Endoscopic (ICD-10-PCS; principal; 2018-02-28 09:28)
DX: K25.4 Chronic or unspecified gastric ulcer with hemorrhage (principal); N39.0 Urinary tract infection, site not specified; D62 Acute posthemorrhagic anemia; I48.0 Paroxysmal atrial fibrillation; I25.10 Atherosclerotic heart disease of native coronary artery without angina pectoris; I10 Essential (primary) hypertension; I25.2 Old myocardial infarction; M19.90 Unspecified osteoarthritis, unspecified site; K21.9 Gastro-esophageal reflux disease without esophagitis; E03.9 Hypothyroidism, unspecified; E78.00 Pure hypercholesterolemia, unspecified; F17.210 Nicotine dependence, cigarettes, uncomplicated; I35.0 Nonrheumatic aortic (valve) stenosis; Z95.5 Presence of coronary angioplasty implant and graft; Z95.0 Presence of cardiac pacemaker; Z90.49 Acquired absence of other specified parts of digestive tract; Z79.01 Long term (current) use of anticoagulants; Z90.710 Acquired absence of both cervix and uterus; K44.9 Diaphragmatic hernia without obstruction or gangrene; E78.5 Hyperlipidemia, unspecified
CPT/HCPCS: 36415; 71045; 80048; 80053; 80061; 80069; 81000; 83735; 83874; 83880; 84439; 84443; 84484; 85007; 85014; 85018; 85025; 85027; 85610; 85730; 86850; 86900; 86901; 86920; 93005; 93041; 93306; 96361; 96365; 96366; 96375

== ENCOUNTER → 2018-03-17 | Outpatient (CLI) | payer MEDICARE ==
[~2018-03-17] VITALS: Ht 162.6 cm; Wt 67.7 kg
[~2018-03-17] MED LIST changes: +CHOL20003 PO; +CIPR500T4 PO; +CYAN500T44 PO; +DENOSUMAB 60 MG/1 ML (PROLIA) SQ SCH; +DILT120C63 PO; +DILT180C PO; +DIPH25CA6 PO; +FENO145T37 PO; +LACT1CAP39 PO; +POTA10TA14 PO; +PRD20T PO
[2018-03-17 13:57] VITALS: BP 164/70
[2018-03-17 14:27] VITALS: BP 164/70
== END ==
LOC: SDC 13:18
PROVIDERS: ATTEND Family Medicine
DX: M81.0 Age-related osteoporosis without current pathological fracture (principal)
CPT/HCPCS: 96372

== ENCOUNTER 2018-03-29 14:54 | Outpatient (RCR) | payer MEDICARE ==
[~2018-03-29 14:54] MED LIST changes: -DENOSUMAB 60 MG/1 ML (PROLIA) SQ SCH; +METR-197 PO; -METR500T21 PO
== END 2018-04-07 | disposition home or self-care (01) ==
LOC: CR3 14:54
PROVIDERS: ATTEND Family Medicine
DX: Z29.8 Encounter for other specified prophylactic measures (principal)

== ENCOUNTER 2018-05-03 14:16 | Outpatient (CLI) | payer MEDICARE ==
[~2018-05-03] VITALS: Ht 157.5 cm; Wt 64.6 kg
== END 2018-05-03 16:01 | disposition home or self-care (01) ==
LOC: PREOP 14:16
PROVIDERS: ATTEND Surgery
DX: Z01.818 Encounter for other preprocedural examination (principal)

== ENCOUNTER 2018-05-09 08:39 | Day surgery (SDC) | payer MEDICARE ==
[~2018-05-09] VITALS: Ht 157.5 cm; Wt 64.6 kg
--- OUTSIDE RECORDS SUMMARY | 2018-05-09 08:47 | XMS REPORT | CCD ---
Author Author Kandi Cabrera MD, [facility] Address [address] [place] [address] Phone Care Team Providers Care Scraper Hand Name Role Phone PP Unavailable CCM Unavailable Summary Purpose Interface Exchange Insurance Providers Payer name Policy type / Coverage type Covered green party ID Effective Begin Date Effective End Date [facility] Commercial Insurance [id number] Unknown WPS Medicare Part B Commercial Insurance [id number] 2017 Unknown Family history Father Diagnosis Age At Onset Hyperlipidemia Unknown Hypertension Unknown Arthritis Unknown Heart Attack Unknown Stroke Unknown Mother Diagnosis Age At Onset Hypertension Unknown Osteoporosis Unknown Arthritis Unknown Hyperlipidemia Unknown Heart Attack Unknown Brother Diagnosis Age At Onset Heart Attack Unknown Hyperlipidemia Unknown Hypertension Unknown Social History Social History Element Codes Description Effective Dates Marital status Unknown Phuc 08/31/2016 Number of children Unknown 2 12/23/2014 Employment Unknown Retired 12/23/[address]: 49700712 Current every day smoker 12/23/2014 Number of years using tobacco Unknown > 50 trying to quit 12/23/2014 Number of cigarettes/day Unknown 10 ( Half a pack) 12/23/[address]: 756872879 Never drinks alcohol 12/23/2014 Allergies, Adverse Reactions, Alerts Substance Reaction Codes Entered Date Inactivated Date Status ciprofloxacin RxNorm: 48824 05/05/2018 No Inactive Date Active SULFA(SULFONAMIDE ANTIBIOTICS) Unknown 05/05/2018 No Inactive Date Active Past Medical History Illness Codes Condition Status Onset Date Resolved Date Encounter for general adult medical examination with abnormal findings ICD-9: V70.0 ICD-10: Z00.01 Active 05/05/2018 Unknown 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 Active 08/31/2016 Unknown Chronic atrial fibrillation ICD-9: 427.31 ICD-10: I48.2 Active 08/31/2016 Unknown Essential (primary) hypertension ICD-9: 401.9 ICD-10: I10 Active 12/22/2014 Unknown Nonrheumatic aortic (valve) stenosis ICD-9: 424.1 ICD-10: I35.0 Active 03/06/2018 Unknown Age-related osteoporosis without current pathological fracture ICD-9: 733.00 ICD-10: M81.0 Active 03/06/2018 Unknown Anemia, unspecified ICD-9: 285.9 ICD-10: D64.9 Active 05/19/2017 Unknown Dysuria ICD-9: 788.1 ICD-10: R30.0 Active 02/22/2018 Unknown Gastro-esophageal reflux disease without esophagitis ICD-9: 530.81 ICD-10: K21.9 Active 07/26/2017 Unknown Hypothyroidism, unspecified ICD-9: 244.9 ICD-10: E03.9 Active 12/22/2014 Unknown Low back pain ICD-9: 724.2 ICD-10: M54.5 Active 08/12/2016 Unknown Epigastric pain ICD-9 : 789.06 ICD-10: R10.13 Active 10/27/2017 Unknown Left lower quadrant pain ICD-9: 789.04 ICD-10: R10.32 Active 10/27/2017 Unknown Other iron deficiency anemias ICD-9: 280.1 ICD-10: D50.8 Active 05/26/2017 Unknown Right lower quadrant pain ICD-9: 789.03 ICD-10: R10.31 Active 10/27/2017 Unknown Diverticulitis of large intestine without perforation or abscess without bleeding ICD-9: 562.11 ICD-10: K57.32 Active 11/29/2017 Unknown Tobacco use ICD-9: 305.1 ICD-10: Z72.0 Active 07/28/2015 Unknown Shortness of breath ICD-9: 786.05 ICD-10: R06.02 Active 04/11/2017 Unknown Encounter for immunization ICD-9: V03.9 ICD-10: Z23 Active 02/09/2017 Unknown Unsteadiness on feet ICD-9: 781.2 ICD-10: R26.81 Active 01/26/2017 Unknown Cough ICD-9: 786.2 ICD-10: R05 Active 01/26/2017 Unknown Mixed hyperlipidemia ICD-9: 272.4 ICD-10: E78.2 Active 12/22/2014 Unknown Sacroiliitis, not elsewhere classified ICD-9: 720.2 ICD-10: M46.1 Active 08/12/2016 Unknown Cellulitis of left lower limb ICD-9: 682.6 ICD-10: L03.116 Active 01/27/2016 Unknown Encounter for immunization ICD-9: V04.81 ICD-10: Z23 Active 01/27/2016 Unknown Diarrhea, unspecified ICD-9: 787.91 ICD-10: R19.7 Active 07/28/2015 Unknown Other obesity due to excess calories ICD-9: 278.00 ICD-10: E66.09 Active 07/28/2015 Unknown Tobacco abuse counseling ICD-9: V65.42 ICD-10: Z71.6 Active 07/28/2015 Unknown Actinic keratosis ICD- 9: 702.0 ICD-10: L57.0 Active 03/30/2015 Unknown Hyperlipidemia Unknown Active 12/23/2014 Unknown Hypertension Unknown Active 12/23/2014 Unknown Hypothryroidism Unknown Active 12/23/2014 Unknown Osteoarthritis Unknown Active 12/23/2014 Unknown ESSENTIAL HYPERTENSION ICD-9: 401.9 Active 12/22/2014 Unknown HYPERLIPIDEMIA ICD-9: 272.4 Active 12/22/2014 Unknown HYPOTHYROIDISM ICD-9: 244.9 Active 12/22/2014 Unknown OSTEOARTH NOS-UNSPEC ICD-9: 715.90 Active 12/22/2014 Unknown Osteoporosis ICD-9: 733.00 Active 12/22/2014 Unknown Sacroiliitis ICD-9: 720.2 Active 12/22/2014 Unknown Problems Condition Codes Effective Dates Condition Status Encounter for general adult medical examination with abnormal findings ICD-9: V70.0 ICD-10: Z00.01 05/05/2018 Active 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 08/31/2016 Active Chronic atrial fibrillation ICD-9: 427.31 ICD-10: I48.2 08/31/2016 Active Essential (primary) hypertension ICD-9: 401.9 ICD-10: I10 12/22/2014 Active Nonrheumatic aortic (valve) stenosis ICD-9: 424.1 ICD-10: I35.0 03/06/2018 Active Age-related osteoporosis without current pathological fracture ICD-9: 733.00 ICD-10: M81.0 03/06/2018 Active Anemia, unspecified ICD-9: 285.9 ICD-10: D64.9 05/19/2017 Active Dysuria ICD-9: 788.1 ICD-10: R30.0 02/22/2018 Active Gastro-esophageal reflux disease without esophagitis ICD-9: 530.81 ICD-10: K21.9 07/26/2017 Active Hypothyroidism, unspecified ICD-9: 244.9 ICD-10: E03.9 12/22/2014 Active Low back pain ICD-9: 724.2 ICD-10: M54.5 08/12/2016 Active Epigastric pain ICD-9 : 789.06 ICD-10: R10.13 10/27/2017 Active Left lower quadrant pain ICD-9: 789.04 ICD-10: R10.32 10/27/2017 Active Other iron deficiency anemias ICD-9: 280.1 ICD-10: D50.8 05/26/2017 Active Right lower quadrant pain ICD-9: 789.03 ICD-10: R10.31 10/27/2017 Active Diverticulitis of large intestine without perforation or abscess without bleeding ICD-9: 562.11 ICD-10: K57.32 11/29/2017 Active Tobacco use ICD-9: 305.1 ICD-10: Z72.0 07/28/2015 Active Shortness of breath ICD-9: 786.05 ICD-10: R06.02 04/11/2017 Active Encounter for immunization ICD-9: V03.9 ICD-10: Z23 02/09/2017 Active Unsteadiness on feet ICD-9: 781.2 ICD-10: R26.81 01/26/2017 Active Cough ICD-9: 786.2 ICD-10: R05 01/26/2017 Active Mixed hyperlipidemia ICD-9: 272.4 ICD-10: E78.2 12/22/2014 Active Sacroiliitis, not elsewhere classified ICD-9: 720.2 ICD-10: M46.1 08/12/2016 Active Cellulitis of left lower limb ICD-9: 682.6 ICD-10: L03.116 01/27/2016 Active Encounter for immunization ICD-9: V04.81 ICD-10: Z23 01/27/2016 Active Diarrhea, unspecified ICD-9: 787.91 ICD-10: R19.7 07/28/2015 Active Other obesity due to excess calories ICD-9: 278.00 ICD-10: E66.09 07/28/2015 Active Tobacco abuse counseling ICD-9: V65.42 ICD-10: Z71.6 07/28/2015 Active Actinic keratosis ICD- 9: 702.0 ICD-10: L57.0 03/30/2015 Active Hyperlipidemia Unknown 12/23/2014 Active Hypertension Unknown 12/23/2014 Active Hypothryroidism Unknown 12/23/2014 Active Osteoarthritis Unknown 12/23/2014 Active ESSENTIAL HYPERTENSION ICD-9: 401.9 12/22/2014 Active HYPERLIPIDEMIA ICD-9: 272.4 12/22/2014 Active HYPOTHYROIDISM ICD-9: 244.9 12/22/2014 Active OSTEOARTH NOS-UNSPEC ICD-9: 715.90 12/22/2014 Active Osteoporosis ICD-9: 733.00 12/22/2014 Active Sacroiliitis ICD-9: 720.2 12/22/2014 Active Medications Medication Codes Instructions Start Date Stop Date Status Fill Instructions prednisone 20 mg tablet RxNorm: 973397 2 Tablet(s) PO daily 07/201702/26/2018 Inactive Cipro 500 mg tablet RxNorm: 578627 1 Tablet(s) PO BID 201702/28/2018 Inactive Synthroid 100 mcg tablet RxNorm: 913668 1 Tablet(s) PO daily 05/08/2019 Active potassium chloride ER 10 mEq tablet,extended release RxNorm: 219843 1 Tablet(s) PO UD take on days that you take a lasix pill 02/13/2018 02/07/2019 Active simvastatin 20 mg tablet RxNorm: 735002 1 Tablet(s) PO QHS 01/07/2019 Active metronidazole 500 mg tablet RxNorm: 112394 1 Tablet(s) PO TID 11/29/2017 12/08/2017 Inactive alendronate 70 mg tablet RxNorm: 599097 1 Tablet(s) PO weekly 11/29/2017 03/05/2018 Inactive omeprazole 40 mg capsule,delayed release RxNorm: 673542 1 Capsule(s) PO daily 11/11/2017 11/05/2018 Active Flagyl 500 mg tablet RxNorm: 805515 1 Tablet(s) PO TID 201711/05/2017 Inactive sucralfate 1 gram tablet RxNorm: 838892 1 Tablet(s) PO TID 10/201707/20/2018 Active fluticasone 50 mcg/actuation nasal spray,suspension RxNorm: 9310503 1 [place] NASAL daily 07/26/2017 No Stop Date Active Protonix 40 mg tablet,delayed release RxNorm: 074252 1 Tablet(s) PO daily 07/26/2017 10/23/2017 Inactive Tricor 145 mg tablet RxNorm: 191423 1 Tablet(s) PO daily 201705/20/2018 Active perphenazine-amitriptyline 2 mg-10 mg tablet RxNorm: 547329 2 Tablet(s) PO daily 05/26/2017 05/20/2018 Active bupropion HCl 75 mg tablet RxNorm: 836238 1/2 Tablet(s) PO BID 02/07/2017 05/07/2017 Inactive Eliquis 5 mg tablet RxNorm: 3385384 1 Tablet(s) PO BID 201601/20/2018 Inactive sotalol 80 mg tablet RxNorm: 2783014 1 Tablet(s) PO BID 201604/20/2018 Inactive Lasix 20 mg tablet RxNorm: 879813 1 Tablet(s) PO daily as needed not more than one time a day 01/26/2017 05/25/2017 Inactive potassium chloride ER 10 mEq tablet,extended release RxNorm: 003855 1 Tablet(s) PO UD take on days that you take a lasix pill 01/26/2017 01/20/2018 Inactive Synthroid 100 mcg tablet RxNorm: 384002 1 Tablet(s) PO daily 02/12/2018 Inactive diltiazem ER 240 mg capsule,extended release RxNorm: 517665 1 Capsule(s) PO BID 01/26/2017 05/03/2017 Inactive simvastatin 20 mg tablet RxNorm: 381286 1 Tablet(s) PO QHS 05/201612/15/2017 Inactive alendronate 70 mg tablet RxNorm: 225485 1 Tablet(s) PO weekly 12/21/2016 11/28/2017 Inactive omeprazole 40 mg capsule,delayed release RxNorm: 293859 1 Capsule(s) PO daily 10/19/2016 10/12/2017 Inactive metoprolol succinate ER 100 mg tablet,extended release 24 hr RxNorm: 767470 1.5 Tablet(s) PO daily 09/17/2016 10/18/2016 Inactive Dosage increased by Dr. Vazquez potassium chloride ER 10 mEq tablet,extended release RxNorm: 914172 1 Tablet(s) PO UD take on days that you take a lasix pill 08/31/2016 12/28/2016 Inactive Lasix 20 mg tablet RxNorm: 847895 1 Tablet(s) PO daily as needed not more than one time a day 08/31/2016 12/28/2016 Inactive Kenalog 40 mg/mL suspension for injection RxNorm: 4378007 1 Milliliter(s) Inj 08/12/2016 08/12/2016 Inactive Tricor 145 mg tablet RxNorm: 065719 1 Tablet(s) PO daily 201505/15/2017 Inactive atenolol 25 mg tablet RxNorm: 280394 1 Tablet(s) PO daily 201508/30/2016 Inactive sucralfate 1 gram tablet RxNorm: 123312 1 Tablet(s) PO TID 05/15/2017 Inactive enalapril maleate 10 mg tablet RxNorm: 211908 1 Tablet(s) PO daily 04/26/2016 08/30/2016 Inactive perphenazine-amitriptyline 2 mg-10 mg tablet RxNorm: 502699 2 Tablet(s) PO daily 04/26/2016 04/20/2017 Inactive fluticasone 50 mcg/actuation nasal spray,suspension RxNorm: 4354446 1 [place] NASAL daily 04/26/2016 07/25/2017 Inactive Synthroid 100 mcg tablet RxNorm: 699045 1 Tablet(s) PO daily 01/25/2017 Inactive Synthroid 100 mcg tablet RxNorm: 279517 1 Tablet(s) PO daily 02/08/2016 Inactive Keflex 500 mg capsule RxNorm: 453991 1 Capsule(s) PO TID 201502/01/2016 Inactive hydrochlorothiazide 25 mg tablet RxNorm: 281286 TAKE 1 TABLET DAILY 01/07/2016 08/30/2016 Inactive enalapril maleate 10 mg tablet RxNorm: 776297 1 Tablet(s) PO daily 12/26/2015 04/25/2016 Inactive hydrochlorothiazide 25 mg tablet RxNorm: 687301 1 Tablet(s) PO daily 12/08/2015 08/30/2016 Inactive omeprazole 40 mg capsule,delayed release RxNorm: 504585 1 Capsule(s) PO daily 12/08/2015 10/18/2016 Inactive simvastatin 20 mg tablet RxNorm: 270980 1 Tablet(s) PO QHS 11/07/2016 Inactive alendronate 70 mg tablet RxNorm: 215085 1 Tablet(s) PO weekly 10/31/2015 10/24/2016 Inactive Synthroid 112 mcg tablet RxNorm: 400656 1 Tablet(s) PO daily 02/08/2016 Inactive sucralfate 1 gram tablet RxNorm: 380942 1 Tablet(s) PO TID 05/20/2016 Inactive perphenazine-amitriptyline 2 mg-10 mg tablet RxNorm: 399638 2 Tablet(s) PO daily 06/17/2015 04/25/2016 Inactive fluticasone 50 mcg/actuation nasal spray,suspension RxNorm: 3306277 1 [place] NASAL daily 06/17/2015 04/25/2016 Inactive fluorouracil 5 % topical cream RxNorm: 599955 APPLY 1 APPLICATION TOPICALLY TWO TIMES A DAY 06/16/2015 06/25/2015 Inactive fluticasone 50 mcg/actuation nasal spray,suspension RxNorm: 338581 1 [place] NASAL daily 06/12/2015 06/16/2015 Inactive atenolol 25 mg tablet RxNorm: 432554 1 Tablet(s) PO daily 201405/07/2016 Inactive Tricor 145 mg tablet RxNorm: 016115 1 Tablet(s) PO daily 201404/16/2016 Inactive Synthroid 125 mcg tablet RxNorm: 825113 1 Tablet(s) PO daily 07/15/2015 Inactive fluorouracil 5 % topical cream RxNorm: 304778 1 Application TOP BID 03/31/2015 04/09/2015 Inactive Synthroid 137 mcg tablet RxNorm: 911950 1 Tablet(s) PO daily 12/24/2014 Inactive Synthroid 137 mcg tablet RxNorm: 955802 1 Tablet(s) PO daily 03/30/2015 Inactive Voltaren 1 % topical gel RxNorm: 069563 4 Gram(s) TOP QID 12/2304/21/2015 Inactive alendronate 70 mg tablet RxNorm: 384545 1 Tablet(s) PO weekly 12/23/2014 12/22/2014 Inactive alendronate 70 mg tablet RxNorm: 507118 1 Tablet(s) PO weekly 12/23/2014 10/30/2015 Inactive Fosamax 70 mg tablet RxNorm: 320278 1 Tablet(s) PO weekly QW 01/27/2016 Inactive omeprazole 40 mg capsule,delayed release RxNorm: 146299 1 Capsule(s) PO daily 12/18/2014 12/07/2015 Inactive omeprazole 40 mg capsule,delayed release RxNorm: 862620 1 Capsule(s) PO daily 12/18/2014 12/17/2014 Inactive hydrochlorothiazide 25 mg tablet RxNorm: 049942 1 Tablet(s) PO daily 12/18/2014 12/17/2014 Inactive hydrochlorothiazide 25 mg tablet RxNorm: 618039 1 Tablet(s) PO daily 12/18/2014 12/07/2015 Inactive L-Lysine 1,000 mg tablet RxNorm: 551094 1 Tablet(s) PO daily No Start Date Active folic acid 400 mcg tablet RxNorm: 982960 1 Tablet(s) PO daily No Start Date Active B12 1000 mcg RxNorm: 1/2 Tablet(s) PO daily No Start Date Active Vitamin D3 1,000 unit chewable tablet RxNorm: 871638 1 Tablet(s) PO daily No Start Date Active diltiazem 120 mg tablet RxNorm: 174980 1 Tablet(s) PO daily No Start Date Active metoprolol succinate ER 100 mg tablet,extended release 24 hr RxNorm: 822107 1 Tablet(s) PO daily No Start Date 2016 Inactive enalapril maleate 10 mg tablet RxNorm: 350970 1 Tablet(s) PO daily No Start Date 12/25/2015 Inactive perphenazine-amitriptyline 2 mg-10 mg tablet RxNorm: 101856 2 Tablet(s) PO daily No Start Date 06/16/2015 Inactive sucralfate 1 gram tablet RxNorm: 229876 1 Tablet(s) PO TID No Start Date 06/16/2015 Inactive hydrochlorothiazide 25 mg tablet RxNorm: 409710 1 Tablet(s) PO daily No Start Date 08/30/2016 Inactive vitamin E (dl, acetate) 400 unit capsule RxNorm: 155641 1 Capsule(s) PO daily No Start Date 03/05/2018 Inactive sotalol 80 mg tablet RxNorm: 9927959 1 Tablet(s) PO BID No Start Date 01/25/2017 Inactive Synthroid 150 mcg tablet RxNorm: 233848 1 Tablet(s) PO daily No Start Date 12/24/2014 Inactive simvastatin 20 mg tablet RxNorm: 089414 1 Tablet(s) PO daily No Start Date 11/13/2015 Inactive Vitamin C RxNorm: PO 1000mg qd No Start Date 03/05/2018 Inactive Fosamax 70 mg tablet RxNorm: 838088 1 Tablet(s) PO weekly No Start Date 12/22/2014 Inactive Tricor 145 mg tablet RxNorm: 875182 1 Tablet(s) PO daily No Start Date 04/22/2015 Inactive diltiazem ER 180 mg capsule,24 hr,extended release RxNorm: 273129 1 Capsule(s) PO daily No Start Date 03/05/2018 Inactive diltiazem ER 240 mg capsule,extended release RxNorm: 482369 1 Capsule(s) PO BID No Start Date 01/25/2017 Inactive Eliquis 5 mg tablet RxNorm: 4646551 1 Tablet(s) PO BID No Start Date 01/25/2017 Inactive fluticasone 50 mcg/actuation nasal spray,suspension RxNorm: 169988 1 [place] NASAL daily No Start Date 06/11/2015 Inactive atenolol 25 mg tablet RxNorm: 849863 1 Tablet(s) PO daily No Start Date 05/13/2015 Inactive Medication Administered Medication Codes Instructions Start Date Status Kenalog 40 mg/mL suspension for injection RxNorm: 8860281 1Milliliter 08/12/2016 No longer Active Immunizations Vaccine Codes Date Status Influenza CVX: 141 03/21/2018 completed Influenza CVX: 141 02/09/2017 completed Pneumococcal (Adult) CVX: 133 02/09/2017 completed Influenza CVX: 141 01/28/2016 completed Zoster CVX: 121 07/22/2011 completed Pneumococcal CVX: 33 11/20/2008 completed Assessments Condition Codes Effective Dates Encounter for general adult medical examination with abnormal findings ICD-10: Z00.01 ICD-9: V70.0 05/05/2018 Chronic atrial fibrillation ICD-10: I48.2 ICD-9: 427.31 04/03/2018 Essential (primary) hypertension ICD-10: I10 ICD-9: 401.9 04/03/2018 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 ICD-9: 244.8 04/03/2018 Nonrheumatic aortic (valve) stenosis ICD-10: I35.0 ICD-9: 424.1 04/03/2018 Age-related osteoporosis without current pathological fracture ICD-10: M81.0 ICD-9: 733.00 03/06/2018 Dysuria ICD-10: R30.0 ICD-9: 788.1 02/22/2018 Low back pain ICD-10: M54.5 ICD-9: 724.2 02/22/2018 Gastro-esophageal reflux disease without esophagitis ICD-10 : K21.9 ICD-9: 530.81 02/22/2018 Other iron deficiency anemias ICD-10: D50.8 ICD-9: 280.1 12/13/2017 Epigastric pain ICD-10: R10.13 ICD-9: 789.06 12/13/2017 Diverticulitis of large intestine without perforation or abscess without bleeding ICD-10: K57.32 ICD-9: 562.11 11/29/2017 Left lower quadrant pain ICD-10: R10.32 ICD-9: 789.04 10/27/2017 Right lower quadrant pain ICD-10: R10.31 ICD-9: 789.03 10/27/2017 Anemia, unspecified ICD-10: D64.9 ICD-9: 285.9 07/28/2017 Tobacco use ICD-10: Z72.0 ICD-9: 305.1 05/26/2017 Shortness of breath ICD-10: R06.02 ICD-9: 786.05 04/11/2017 Encounter for immunization ICD-10: Z23 ICD-9: V03.9 02/09/2017 Unsteadiness on feet ICD-10: R26.81 ICD-9: 781.2 02/07/2017 Cough ICD-10: R05 ICD-9: 786.2 01/26/2017 Mixed hyperlipidemia ICD-10: E78.2 ICD-9: 272.4 10/19/2016 Sacroiliitis, not elsewhere classified ICD-10: M46.1 ICD-9: 720.2 08/12/2016 Hypothyroidism, unspecified ICD-10: E03.9 ICD-9: 244.9 01/28/2016 Encounter for immunization ICD-10: Z23 ICD-9: V04.81 01/28/2016 Cellulitis of left lower limb ICD-10: L03.116 ICD-9: 682.6 01/28/2016 Other obesity due to excess calories ICD-10: E66.09 ICD-9: 278.00 07/29/2015 Diarrhea, unspecified ICD-10: R19.7 ICD-9: 787.91 07/29/2015 Tobacco abuse counseling ICD-10: Z71.6 ICD-9: V65.42 07/29/2015 Actinic keratosis ICD-10: L57.0 ICD-9: 702.0 03/31/2015 Osteoporosis ICD-9: 733.00 12/23/2014 Sacroiliitis ICD-9: 720.2 12/23/2014 HYPOTHYROIDISM ICD-9: 244.9 12/23/2014 OSTEOARTH NOS-UNSPEC ICD-9: 715.90 2014 ESSENTIAL HYPERTENSION ICD-9: 401.9 12/23 HYPERLIPIDEMIA ICD-9: 272.4 12/23/2014 Reason For Visit Reason For Visit Effective Dates Notes Annual Medicare Wellness Exam 05/05/2018 hypertension 04/03/2018 Hospital Follow Up 03/06/2018 back pain 02/22/2018 diarrhea 12/13/2017 diarrhea 11/29/2017 diarrhea 10/27/2017 hypertension 07/26/2017 hypertension 05/26/2017 hypertension 04/11/2017 vaccination against influenza 02/09/2017 abnormal test results 02/07/2017 normal brain MRI et CXR hypertension 01/26/2017 hypertension 10/19/2016 hypertension 09/22/2016 Hospital Follow Up 08/31/2016 back pain 08/12/2016 low back on left hypertension 07/28/2016 hypertension 01/28/2016 hypertension 07/29/2015 hypertension 03/31/2015 joint complaint 12/23/2014 Results Observation Observation Code Item Item Code Result Date Cbc With Differential Ord2 WBC 5.88 K/ul 03/17/2018 Cbc With Differential Ord2 RBC 3.88 M/ul 03/17/2018 Cbc With Differential Ord2 HGB 11.6 g/dl 03/17/2018 Cbc With Differential Ord2 Neut% 68.0 % 03/17/2018 Cbc With Differential Ord2 HCT 36.3 % 03/17/2018 Cbc With Differential Ord2 Lymph% 15.3 % 03/17/2018 Cbc With Differential Ord2 MCV 93.6 fl 03/17/2018 Cbc With Differential Ord2 MCH 29.9 pg 03/17/2018 Cbc With Differential Ord2 [place]% 13.3 % 03/17/2018 Cbc With Differential Ord2 Eos% 2.9 % 03/17/2018 Cbc With Differential Ord2 MCHC 32.0 pg 03/17/2018 Cbc With Differential Ord2 PLT 369 K/ul 03/17/2018 Cbc With Differential Ord2 Baso% 0.5 % 03/17/2018 Cbc With Differential Ord2 Neut ABS# 4.00 K/ul 03/17/2018 Cbc With Differential Ord2 RDW 14.9 % 03/17/2018 Cbc With Differential Ord2 Lymph ABS# 0.90 K/ul 03/17/2018 Cbc With Differential Ord2 [place] ABS# 0.8 K/ul 03/17/2018 Cbc With Differential Ord2 Eos ABS# 0.2 K/ul 03/17/2018 Cbc With Differential Ord2 Baso ABS# 0.0 K/ul 03/17/2018 Urine Culture Ucult Complete NO Growth Day 2 02/24/2018 Urine Culture Ucult Preliminary NO Growth Day 1 02/24/2018 Cbc With Differential Ord2 WBC 5.92 K/ul 02/22/2018 Cbc With Differential Ord2 RBC 2.91 M/ul 02/22/2018 Cbc With Differential Ord2 HGB 8.8 g/dl 02/22/2018 Cbc With Differential Ord2 Neut% 69.7 % 02/22/2018 Cbc With Differential Ord2 HCT 27.2 % 02/22/2018 Cbc With Differential Ord2 Lymph% 14.5 % 02/22/2018 Cbc With Differential Ord2 MCV 93.5 fl 02/22/2018 Cbc With Differential Ord2 [place]% 11.5 % 02/22/2018 Cbc With Differential Ord2 MCH 30.2 pg 02/22/2018 Cbc With Differential Ord2 Eos% 3.5 % 02/22/2018 Cbc With Differential Ord2 MCHC 32.4 pg 02/22/2018 Cbc With Differential Ord2 PLT 414 K/ul 02/22/2018 Cbc With Differential Ord2 Baso% 0.8 % 02/22/2018 Cbc With Differential Ord2 Neut ABS# 4.12 K/ul 02/22/2018 Cbc With Differential Ord2 RDW 15.4 % 02/22/2018 Cbc With Differential Ord2 Lymph ABS# 0.86 K/ul 02/22/2018 Cbc With Differential Ord2 [place] ABS# 0.7 K/ul 02/22/2018 Cbc With Differential Ord2 Eos ABS# 0.2 K/ul 02/22/2018 Cbc With Differential Ord2 Baso ABS# 0.1 K/ul 02/22/2018 Tsh Ord6 TSH (3rd IS) 0.66 uIU/mL 02/22/2018 Free T4 Ltr655 FREE T4 1.22 ng/dL 02/22/2018 Comp Metabolic Lyk763 NA 136 mEq/L 02/22/2018 Comp Metabolic Gek481 K 4.4 mEq/L 02/22/2018 Comp Metabolic Abt200 CL 102 mEq/L 02/22/2018 Comp Metabolic Oel464 CO2 23.0 mEq/L 02/22/2018 Comp Metabolic Nyu113 ANION GAP 15 02/22/2018 Comp Metabolic Vtu032 GLUCOSE 94 mg/dL 02/22/2018 Comp Metabolic Hyq919 Creat 1.2 mg/dL 02/22/2018 Comp Metabolic Mog274 eGFR 46 ml/min/1.73m2 02/22/2018 Comp Metabolic Muo538 BUN 31 mg/dL 02/22/2018 Comp Metabolic Zoz176 B/C Ratio 25.8 Ratio 02/22/2018 Comp Metabolic Zya138 CALCIUM 9.2 mg/dL 02/22/2018 Comp Metabolic Elq332 ALK PHOS 34 U/L 02/22/2018 Comp Metabolic Mkh796 AST(SGOT) 18 U/L 02/22/2018 Comp Metabolic Upm269 ALT(SGPT) 8 U/L 02/22/2018 Comp Metabolic Rdj226 BILI T 0.4 mg/dL 02/22/2018 Comp Metabolic Fei265 ALBUMIN 3.6 g/dL 02/22/2018 Comp Metabolic Cwm037 TPRO 6.2 g/dL 02/22/2018 Comp Metabolic Dod218 GLOB 2.6 g/dL 02/22/2018 Comp Metabolic Vhw543 A/G Ratio 1.4 Ratio 02/22/2018 Comp Metabolic Sqs768 Osmo 278 mOsmo 02/22/2018 Free T4 Rzw442 FREE T4 1.11 ng/dL 10/27/2017 Lipid Ord30 CHOL 132 mg/dL 10/27/2017 Lipid Ord30 HDL 30.0 mg/dl 10/27/2017 Lipid Ord30 TRIG 213 mg/dL 10/27/2017 Lipid Ord30 LDL 59 mg/dL 10/27/2017 Lipid Ord30 C/HDL 4.4 Ratio 10/27/2017 Tibc Ord40 Iron 123 ug/dl 10/27/2017 Tibc Ord40 UIBC 319 ug/dL 10/27/2017 Tibc Ord40 TIBC 442 ug/dL 10/27/2017 Tibc Ord40 Fe-%Sat 27.8 % 10/27/2017 Tsh Ord6 TSH (3rd IS) 0.51 uIU/mL 10/27/2017 Cbc With Differential Ord2 WBC 4.97 K/ul 10/27/2017 Cbc With Differential Ord2 RBC 4.07 M/ul 10/27/2017 Cbc With Differential Ord2 HGB 12.5 g/dl 10/27/2017 Cbc With Differential Ord2 Neut% 61.0 % 10/27/2017 Cbc With Differential Ord2 HCT 38.3 % 10/27/2017 Cbc With Differential Ord2 MCV 94.1 fl 10/27/2017 Cbc With Differential Ord2 Lymph% 23.3 % 10/27/2017 Cbc With Differential Ord2 [place]% 11.3 % 10/27/2017 Cbc With Differential Ord2 MCH 30.7 pg 10/27/2017 Cbc With Differential Ord2 Eos% 3.8 % 10/27/2017 Cbc With Differential Ord2 MCHC 32.6 pg 10/27/2017 Cbc With Differential Ord2 Baso% 0.6 % 10/27/2017 Cbc With Differential Ord2 PLT 364 K/ul 10/27/2017 Cbc With Differential Ord2 Neut ABS# 3.03 K/ul 10/27/2017 Cbc With Differential Ord2 RDW 16.5 % 10/27/2017 Cbc With Differential Ord2 Lymph ABS# 1.16 K/ul 10/27/2017 Cbc With Differential Ord2 [place] ABS# 0.6 K/ul 10/27/2017 Cbc With Differential Ord2 Eos ABS# 0.2 K/ul 10/27/2017 Cbc With Differential Ord2 Baso ABS# 0.0 K/ul 10/27/2017 Comp Metabolic Bmr062 NA 135 mEq/L 10/27/2017 Comp Metabolic Pal405 K 4.7 mEq/L 10/27/2017 Comp Metabolic Cmr708 CL 101 mEq/L 10/27/2017 Comp Metabolic Hco722 CO2 23.0 mEq/L 10/27/2017 Comp Metabolic Xvb341 ANION GAP 16 10/27/2017 Comp Metabolic Xbt729 GLUCOSE 84 mg/dL 10/27/2017 Comp Metabolic Rqg968 Creat 1.2 mg/dL 10/27/2017 Comp Metabolic Rml728 eGFR 46 ml/min/1.73m2 10/27/2017 Comp Metabolic Cii188 BUN 30 mg/dL 10/27/2017 Comp Metabolic Oyi927 B/C Ratio 25.2 Ratio 10/27/2017 Comp Metabolic Mbt516 CALCIUM 9.4 mg/dL 10/27/2017 Comp Metabolic Lbg308 ALK PHOS 30 U/L 10/27/2017 Comp Metabolic Zwd237 AST(SGOT) 25 U/L 10/27/2017 Comp Metabolic Aku213 ALT(SGPT) 12 U/L 10/27/2017 Comp Metabolic Jbw069 BILI T 0.5 mg/dL 10/27/2017 Comp Metabolic Cju747 ALBUMIN 3.7 g/dL 10/27/2017 Comp Metabolic Trx436 TPRO 6.5 g/dL 10/27/2017 Comp Metabolic Bck434 GLOB 2.8 g/dL 10/27/2017 Comp Metabolic Hcd513 A/G Ratio 1.3 Ratio 10/27/2017 Comp Metabolic Uxq783 Osmo 275 mOsmo 10/27/2017 Hgb & Hct Ord65 HGB 12.2 g/dl 07/29/2017 Hgb & Hct Ord65 HCT 38.8 % 07/29/2017 Tibc Ord40 Iron 79 ug/dl 07/26/2017 Tibc Ord40 UIBC 380 ug/dL 07/26/2017 Tibc Ord40 TIBC 459 ug/dL 07/26/2017 Tibc Ord40 Fe-%Sat 17.2 % 07/26/2017 Tsh Ord6 TSH (3rd IS) 0.46 uIU/mL 07/26/2017 Ferritin Ord22 FERRITIN 83.6 ng/mL 07/26/2017 Free T4 Nrm213 FREE T4 1.00 ng/dL 07/26/2017 Tibc Ord40 Iron 32 ug/dl 05/20/2017 Tibc Ord40 UIBC 601 ug/dL 05/20/2017 Tibc Ord40 TIBC 633 ug/dL 05/20/2017 Tibc Ord40 Fe-%Sat 5.1 % 05/20/2017 Hgb & Hct Ord65 HGB 9.4 g/dl 05/20/2017 Hgb & Hct Ord65 HCT 29.8 % 05/20/2017 Ferritin Ord22 FERRITIN 5.5 ng/mL 05/20/2017 Tsh Ord6 hTSH II 0.21 uIU/mL 08/02/2016 Cbc With Differential Ord2 WBC 7.85 K/ul 08/02/2016 Cbc With Differential Ord2 RBC 4.19 M/ul 08/02/2016 Cbc With Differential Ord2 HGB 13.0 g/dl 08/02/2016 Cbc With Differential Ord2 HCT 39.6 % 08/02/2016 Cbc With Differential Ord2 Neut% 68.2 % 08/02/2016 Cbc With Differential Ord2 MCV 94.5 fl 08/02/2016 Cbc With Differential Ord2 Lymph% 18.3 % 08/02/2016 Cbc With Differential Ord2 MCH 31.0 pg 08/02/2016 Cbc With Differential Ord2 [place]% 9.4 % 08/02/2016 Cbc With Differential Ord2 MCHC 32.8 pg 08/02/2016 Cbc With Differential Ord2 Eos% 3.2 % 08/02/2016 Cbc With Differential Ord2 Baso% 0.9 % 08/02/2016 Cbc With Differential Ord2 PLT 152 K/ul 08/02/2016 Cbc With Differential Ord2 Neut ABS# 5.35 K/ul 08/02/2016 Cbc With Differential Ord2 RDW 16.0 % 08/02/2016 Cbc With Differential Ord2 Lymph ABS# 1.44 K/ul 08/02/2016 Cbc With Differential Ord2 [place] ABS# 0.7 K/ul 08/02/2016 Cbc With Differential Ord2 Eos ABS# 0.3 K/ul 08/02/2016 Cbc With Differential Ord2 Baso ABS# 0.1 K/ul 08/02/2016 Lipid Ord30 CHOL 142 mg/dL 08/02/2016 Lipid Ord30 HDL 40.0 mg/dl 08/02/2016 Lipid Ord30 TRIG 169 mg/dL 08/02/2016 Lipid Ord30 LDL 68 mg/dL 08/02/2016 Lipid Ord30 C/HDL 3.6 Ratio 08/02/2016 Comp Metabolic Mne205 NA 139 mEq/L 08/02/2016 Comp Metabolic Lpt685 K 5.2 mEq/L 08/02/2016 Comp Metabolic Dvf439 CL 108 mEq/L 08/02/2016 Comp Metabolic Ozs090 CO2 22.0 mEq/L 08/02/2016 Comp Metabolic Qca001 ANION GAP 14 08/02/2016 Comp Metabolic Ady027 GLUCOSE 103 mg/dL 08/02/2016 Comp Metabolic Yzd907 Creat 1.1 mg/dL 08/02/2016 Comp Metabolic Pjg530 eGFR 54 ml/min/1.73m2 08/02/2016 Comp Metabolic Ovp137 BUN 26 mg/dL 08/02/2016 Comp Metabolic Fmj455 B/C Ratio 24.8 Ratio 08/02/2016 Comp Metabolic Okc150 CALCIUM 9.4 mg/dL 08/02/2016 Comp Metabolic Ylw080 ALK PHOS 41 U/L 08/02/2016 Comp Metabolic Dws808 AST(SGOT) 18 U/L 08/02/2016 Comp Metabolic Ihx540 ALT(SGPT) 10 U/L 08/02/2016 Comp Metabolic Fyy403 BILI T 0.3 mg/dL 08/02/2016 Comp Metabolic Nnt330 ALBUMIN 3.7 g/dL 08/02/2016 Comp Metabolic Oif896 TPRO 6.5 g/dL 08/02/2016 Comp Metabolic Oda704 GLOB 2.8 g/dL 08/02/2016 Comp Metabolic Xbs428 A/G Ratio 1.3 Ratio 08/02/2016 Comp Metabolic Bwf782 Osmo 283 mOsmo 08/02/2016 Free T4 Kcm471 FREE T4 1.08 ng/dL 08/02/2016 Tsh Ord6 hTSH II 0.35 uIU/mL 05/13/2016 Free T4 Ngf671 FREE T4 0.78 ng/dL 05/13/2016 Free T4 Bco840 FREE T4 1.13 ng/dL 01/28/2016 Tsh Ord6 hTSH II 0.19 uIU/mL 01/28/2016 Cbc With Differential Ord2 WBC 7.49 K/ul 07/14/2015 Cbc With Differential Ord2 RBC 4.20 M/ul 07/14/2015 Cbc With Differential Ord2 HGB 12.7 g/dl 07/14/2015 Cbc With Differential Ord2 Neut% 63.9 % 07/14/2015 Cbc With Differential Ord2 HCT 39.1 % 07/14/2015 Cbc With Differential Ord2 Lymph% 24.0 % 07/14/2015 Cbc With Differential Ord2 MCV 93.1 fl 07/14/2015 Cbc With Differential Ord2 [place]% 9.1 % 07/14/2015 Cbc With Differential Ord2 MCH 30.2 pg 07/14/2015 Cbc With Differential Ord2 Eos% 2.5 % 07/14/2015 Cbc With Differential Ord2 MCHC 32.5 pg 07/14/2015 Cbc With Differential Ord2 Baso% 0.5 % 07/14/2015 Cbc With Differential Ord2 PLT 344 K/ul 07/14/2015 Cbc With Differential Ord2 RDW 15.1 % 07/14/2015 Cbc With Differential Ord2 Neut ABS# 4.78 K/ul 07/14/2015 Cbc With Differential Ord2 Lymph ABS# 1.80 K/ul 07/14/2015 Cbc With Differential Ord2 [place] ABS# 0.7 K/ul 07/14/2015 Cbc With Differential Ord2 Eos ABS# 0.2 K/ul 07/14/2015 Cbc With Differential Ord2 Baso ABS# 0.0 K/ul 07/14/2015 Cbc With Differential Ord2 New Analyzer Notice Please note new ref ranges starting 06-04-2015 due to implemntation of new five part differential hematolgy analyzer. 07/14/2015 Lipid Ord30 CHOL 143 mg/dL 07/14/2015 Lipid Ord30 HDL 47.0 mg/dl 07/14/2015 Lipid Ord30 TRIG 129 mg/dL 07/14/2015 Lipid Ord30 LDL 70 mg/dL 07/14/2015 Lipid Ord30 C/HDL 3.0 Ratio 07/14/2015 Comp Metabolic Hgn610 NA 136 mEq/L 07/14/2015 Comp Metabolic Spc582 K 4.4 mEq/L 07/14/2015 Comp Metabolic Lfr058 CL 101 mEq/L 07/14/2015 Comp Metabolic Cux321 CO2 27.0 mEq/L 07/14/2015 Comp Metabolic Sed108 ANION GAP 12 07/14/2015 Comp Metabolic Dke700 GLUCOSE 97 mg/dL 07/14/2015 Comp Metabolic Rmr862 Creat 1.0 mg/dL 07/14/2015 Comp Metabolic Cgr961 eGFR 56 ml/min/1.73m2 07/14/2015 Comp Metabolic Aqg348 BUN 27 mg/dL 07/14/2015 Comp Metabolic Jsk250 B/C Ratio 26.7 Ratio 07/14/2015 Comp Metabolic Zrc901 CALCIUM 9.3 mg/dL 07/14/2015 Comp Metabolic Ddv418 ALK PHOS 33 U/L 07/14/2015 Comp Metabolic Sau940 AST(SGOT) 14 U/L 07/14/2015 Comp Metabolic Lje337 ALT(SGPT) 8 U/L 07/14/2015 Comp Metabolic Nmt815 BILI T 0.4 mg/dL 07/14/2015 Comp Metabolic Uni295 ALBUMIN 3.8 g/dL 07/14/2015 Comp Metabolic Ywg961 TPRO 6.6 g/dL 07/14/2015 Comp Metabolic Dlr462 GLOB 2.8 g/dL 07/14/2015 Comp Metabolic Vzi048 A/G Ratio 1.4 Ratio 07/14/2015 Comp Metabolic Yxm240 Osmo 277 mOsmo 07/14/2015 Tsh Ord6 hTSH II 0.23 uIU/mL 07/14/2015 Free T4 Oyn857 FREE T4 1.19 ng/dL 07/14/2015 Cbc With Differential Ord2 WBC 7.8 K/uL 03/26/2015 Cbc With Differential Ord2 LYM 1.9 K/uL 03/26/2015 Cbc With Differential Ord2 LYM% 24.2 % 03/26/2015 Cbc With Differential Ord2 NEUT/GRAN 5.3 K/uL 03/26/2015 Cbc With Differential Ord2 NEUT/GRAN % 68.3 % 03/26/2015 Cbc With Differential Ord2 MID 0.6 K/uL 03/26/2015 Cbc With Differential Ord2 MID% 7.5 % 03/26/2015 Cbc With Differential Ord2 RBC 4.21 M/uL 03/26/2015 Cbc With Differential Ord2 HGB 12.6 g/dL 03/26/2015 Cbc With Differential Ord2 HCT 39.7 % 03/26/2015 Cbc With Differential Ord2 MCV 94 fL 03/26/2015 Cbc With Differential Ord2 MCH 30 pg 03/26/2015 Cbc With Differential Ord2 MCHC 32 g/dL 03/26/2015 Cbc With Differential Ord2 PLT 318 K/uL 03/26/2015 Cbc With Differential Ord2 RDW 14.7 % 03/26/2015 Lipid Ord30 CHOL 147 mg/dL 03/26/2015 Lipid Ord30 HDL 43.0 mg/dl 03/26/2015 Lipid Ord30 TRIG 146 mg/dL 03/26/2015 Lipid Ord30 LDL 75 mg/dL 03/26/2015 Lipid Ord30 C/HDL 3.4 Ratio 03/26/2015 Comp Metabolic Xxj425 NA 135 mEq/L 03/26/2015 Comp Metabolic Xao203 K 5.0 mEq/L 03/26/2015 Comp Metabolic Ywo395 CL 99 mEq/L 03/26/2015 Comp Metabolic Hyv836 CO2 27.0 mEq/L 03/26/2015 Comp Metabolic Tsy132 ANION GAP 14 03/26/2015 Comp Metabolic Pnq377 GLUCOSE 88 mg/dL 03/26/2015 Comp Metabolic Dbb161 Creat 1.1 mg/dL 03/26/2015 Comp Metabolic Vbk608 eGFR 50 ml/min/1.73m2 03/26/2015 Comp Metabolic Xrm844 BUN 27 mg/dL 03/26/2015 Comp Metabolic Yyd509 B/C Ratio 24.1 Ratio 03/26/2015 Comp Metabolic Lpt076 CALCIUM 9.9 mg/dL 03/26/2015 Comp Metabolic Pdq151 ALK PHOS 30 U/L 03/26/2015 Comp Metabolic Qoj421 AST(SGOT) 16 U/L 03/26/2015 Comp Metabolic Ubn719 ALT(SGPT) 8 U/L 03/26/2015 Comp Metabolic Kby220 BILI T 0.4 mg/dL 03/26/2015 Comp Metabolic Coe926 ALBUMIN 3.9 g/dL 03/26/2015 Comp Metabolic Yll196 TPRO 6.4 g/dL 03/26/2015 Comp Metabolic Drk342 GLOB 2.5 g/dL 03/26/2015 Comp Metabolic Kbq434 A/G Ratio 1.6 Ratio 03/26/2015 Comp Metabolic Rnq946 Osmo 275 mOsmo 03/26/2015 Free T4 Srl349 FREE T4 1.22 ng/dL 03/26/2015 Tsh Ord6 hTSH II 0.20 uIU/mL 03/26/2015 Vitamin D 25 Oh Omk4898 VITAMIN D, 25 HYDROXY 51.09 ng/mL Tsh Ord6 hTSH II 0.09 uIU/mL 12/23/2014 Free T4 Nah067 FREE T4 1.30 ng/dL 12/23/2014 Comp Metabolic Ejw132 NA 135 mEq/L 12/23/2014 Comp Metabolic Poq619 K 4.7 mEq/L 12/23/2014 Comp Metabolic Ipr636 CL 100 mEq/L 12/23/2014 Comp Metabolic Wdl639 CO2 23.0 mEq/L 12/23/2014 Comp Metabolic Edw018 ANION GAP 17 12/23/2014 Comp Metabolic Eqn015 GLUCOSE 93 mg/dL 12/23/2014 Comp Metabolic Pds087 Creat 1.1 mg/dL 12/23/2014 Comp Metabolic Eri824 eGFR 53 ml/min/1.73m2 12/23/2014 Comp Metabolic Xki625 BUN 26 mg/dL 12/23/2014 Comp Metabolic Ifa616 B/C Ratio 24.3 Ratio 12/23/2014 Comp Metabolic Hjo556 CALCIUM 9.5 mg/dL 12/23/2014 Comp Metabolic Ngk739 ALK PHOS 27 U/L 12/23/2014 Comp Metabolic Xmy392 AST(SGOT) 16 U/L 12/23/2014 Comp Metabolic Dqq692 ALT(SGPT) 8 U/L 12/23/2014 Comp Metabolic Hao676 BILI T 0.4 mg/dL 12/23/2014 Comp Metabolic Kyx866 ALBUMIN 3.9 g/dL 12/23/2014 Comp Metabolic Qjx262 TPRO 6.7 g/dL 12/23/2014 Comp Metabolic Nia778 GLOB 2.8 g/dL 12/23/2014 Comp Metabolic Rnt985 A/G Ratio 1.4 Ratio 12/23/2014 Comp Metabolic Jay595 Osmo 275 mOsmo 12/23/2014 Review of Systems System Result Effective Dates Constitutional No recent illness 2017 Constitutional No chills 05/05/2018 Constitutional No diaphoresis 05/05/2018 Constitutional No fever 05/05/2018 Eyes No eye erythema 05/05/2018 Ears/Nose/Throat/Neck No nasal discharge 05/05/2018 Cardiovascular No chest pain/pressure Cardiovascular No dyspnea 05/05/2018 Respiratory No cough 05/05/2018 Respiratory No dyspnea 05/05/2018 Neurologic No alteration of consciousness 05/05/2018 Neurologic No mental status change 2017 Constitutional No recent illness 2017 Constitutional No chills 04/03/2018 Constitutional No diaphoresis 04/03/2018 Constitutional fatigue 04/03/2018 Constitutional No fever 04/03/2018 Eyes No blindness 04/03/2018 Eyes No vision change 04/03/2018 Ears/Nose/Throat/Neck No nasal allergies 04/03/2018 Ears/Nose/Throat/Neck No nasal discharge 04/03/2018 Cardiovascular No chest pain/pressure 04/2018 Cardiovascular No dyspnea 04/03/2018 Respiratory No chest congestion 2017 Respiratory No cough 04/03/2018 Gastrointestinal No abdominal pain 2017 Gastrointestinal No constipation 2017 Gastrointestinal No diarrhea 04/03/2018 Gastrointestinal gastroesophageal reflux 04/03/2018 Gastrointestinal No nausea 04/03/2018 Gastrointestinal No vomiting 04/03/2018 Musculoskeletal stiffness 04/03/2018 Musculoskeletal No swelling 04/03/2018 Musculoskeletal arthralgia(s) 04/03/2018 Musculoskeletal back pain 04/03/2018 Musculoskeletal No muscle weakness 2017 Musculoskeletal No myalgias 04/03/2018 Dermatologic No rash 04/03/2018 Neurologic No alteration of consciousness 04/03/2018 Neurologic No mental status change 2017 Respiratory cigarette smoking 04/03/2018 Psychiatric No anxiety 04/03/2018 Psychiatric No depression 04/03/2018 Psychiatric No confusion 04/03/2018 Genitourinary/Nephrology No dysuria 04/03 Genitourinary/Nephrology No urinary urgency 04/03/2018 Cardiovascular fatigue 04/03/2018 Dermatologic pruritus 04/03/2018 Constitutional recent illness 03/06/2018 Constitutional No chills 03/06/2018 Constitutional No diaphoresis 03/06/2018 Constitutional fatigue 03/06/2018 Constitutional No fever 03/06/2018 Eyes No blindness 03/06/2018 Eyes No vision change 03/06/2018 Ears/Nose/Throat/Neck No nasal allergies 03/06/2018 Ears/Nose/Throat/Neck No nasal discharge 03/06/2018 Cardiovascular No chest pain/pressure Cardiovascular dyspnea 03/06/2018 Respiratory No chest congestion 2017 Respiratory No cough 03/06/2018 Gastrointestinal No abdominal pain 2017 Gastrointestinal No constipation 2017 Gastrointestinal gastroesophageal reflux 03/06/2018 Gastrointestinal No nausea 03/06/2018 Musculoskeletal stiffness 03/06/2018 Musculoskeletal No swelling 03/06/2018 Musculoskeletal arthralgia(s) 03/06/2018 Musculoskeletal back pain 03/06/2018 Musculoskeletal No muscle weakness 2017 Musculoskeletal No myalgias 03/06/2018 Dermatologic No rash 03/06/2018 Neurologic No alteration of consciousness 03/06/2018 Neurologic No mental status change 2017 Psychiatric No anxiety 03/06/2018 Gastrointestinal No diarrhea 03/06/2018 Genitourinary/Nephrology No dysuria 03/06 Dermatologic No sores 03/06/2018 Cardiovascular exercise intolerance 03/06 Musculoskeletal osteoporosis 03/06/2018 Constitutional No recent illness 2017 Constitutional No chills 02/22/2018 Constitutional No fever 02/22/2018 Eyes No eye erythema 02/22/2018 Ears/Nose/Throat/Neck No nasal discharge 02/22/2018 Cardiovascular No chest pain/pressure 07/2017 Cardiovascular No dyspnea 02/22/2018 Respiratory No cough 02/22/2018 Respiratory No dyspnea 02/22/2018 Neurologic No alteration of consciousness 02/22/2018 Neurologic No mental status change 2017 Genitourinary/Nephrology flank pain 02/22 Genitourinary/Nephrology dysuria 2017 Gastrointestinal No constipation 2017 Gastrointestinal No diarrhea 02/22/2018 Gastrointestinal No vomiting 02/22/2018 Gastrointestinal No nausea 02/22/2018 Gastrointestinal No abdominal pain 2017 Musculoskeletal back pain 02/22/2018 Constitutional recent illness 12/13/2017 Constitutional No chills 12/13/2017 Constitutional No diaphoresis 12/13/2017 Constitutional fatigue 12/13/2017 Constitutional No fever 12/13/2017 Eyes No blindness 12/13/2017 Eyes No vision change 12/13/2017 Ears/Nose/Throat/Neck No nasal allergies 12/13/2017 Ears/Nose/Throat/Neck No nasal discharge 12/13/2017 Cardiovascular No chest pain/pressure Cardiovascular No dyspnea 12/13/2017 Cardiovascular near-syncope/dizziness Respiratory No chest congestion 2017 Respiratory No cough 12/13/2017 Gastrointestinal abdominal pain 2017 Gastrointestinal No constipation 2017 Gastrointestinal diarrhea 12/13/2017 Gastrointestinal gastroesophageal reflux 12/13/2017 Gastrointestinal No nausea 12/13/2017 Gastrointestinal No vomiting 12/13/2017 Musculoskeletal No swelling 12/13/2017 Musculoskeletal arthralgia(s) 12/13/2017 Musculoskeletal back pain 12/13/2017 Musculoskeletal No muscle weakness 2017 Musculoskeletal No myalgias 12/13/2017 Dermatologic No rash 12/13/2017 Neurologic No alteration of consciousness 12/13/2017 Neurologic No mental status change 2017 Psychiatric No anxiety 12/13/2017 Constitutional recent illness 11/29/2017 Constitutional No chills 11/29/2017 Constitutional No diaphoresis 11/29/2017 Constitutional fatigue 11/29/2017 Constitutional No fever 11/29/2017 Eyes No blindness 11/29/2017 Eyes No vision change 11/29/2017 Ears/Nose/Throat/Neck No nasal allergies 11/29/2017 Ears/Nose/Throat/Neck No nasal discharge 11/29/2017 Cardiovascular No chest pain/pressure 02/2018 Cardiovascular No dyspnea 11/29/2017 Cardiovascular near-syncope/dizziness 02/2018 Respiratory No chest congestion 2017 Respiratory No cough 11/29/2017 Gastrointestinal abdominal pain 2017 Gastrointestinal No constipation 2017 Gastrointestinal diarrhea 11/29/2017 Gastrointestinal gastroesophageal reflux 11/29/2017 Gastrointestinal No nausea 11/29/2017 Gastrointestinal No vomiting 11/29/2017 Musculoskeletal stiffness 11/29/2017 Musculoskeletal No swelling 11/29/2017 Musculoskeletal arthralgia(s) 11/29/2017 Musculoskeletal back pain 11/29/2017 Musculoskeletal No muscle weakness 2017 Musculoskeletal No myalgias 11/29/2017 Dermatologic No rash 11/29/2017 Neurologic No alteration of consciousness 11/29/2017 Neurologic No mental status change 2017 Psychiatric No anxiety 11/29/2017 Constitutional recent illness 10/27/2017 Constitutional No chills 10/27/2017 Constitutional No diaphoresis 10/27/2017 Constitutional fatigue 10/27/2017 Constitutional No fever 10/27/2017 Eyes No blindness 10/27/2017 Eyes No vision change 10/27/2017 Ears/Nose/Throat/Neck No nasal allergies 10/27/2017 Ears/Nose/Throat/Neck No nasal discharge 10/27/2017 Cardiovascular No chest pain/pressure 11/2017 Cardiovascular No dyspnea 10/27/2017 Cardiovascular near-syncope/dizziness 11/2017 Respiratory No chest congestion 2017 Respiratory No cough 10/27/2017 Gastrointestinal abdominal pain 2017 Gastrointestinal No constipation 2017 Gastrointestinal diarrhea 10/27/2017 Gastrointestinal gastroesophageal reflux 10/27/2017 Gastrointestinal No nausea 10/27/2017 Gastrointestinal No vomiting 10/27/2017 Musculoskeletal stiffness 10/27/2017 Musculoskeletal No swelling 10/27/2017 Musculoskeletal arthralgia(s) 10/27/2017 Musculoskeletal back pain 10/27/2017 Musculoskeletal No muscle weakness 2017 Musculoskeletal No myalgias 10/27/2017 Dermatologic No rash 10/27/2017 Neurologic No alteration of consciousness 10/27/2017 Neurologic No mental status change 2017 Psychiatric No anxiety 10/27/2017 Constitutional No recent illness 2017 Constitutional No chills 07/26/2017 Constitutional No fever 07/26/2017 Eyes No eye erythema 07/26/2017 Eyes No vision change 07/26/2017 Cardiovascular No chest pain/pressure 10/2017 Cardiovascular No dyspnea 07/26/2017 Gastrointestinal No abdominal pain 2017 Gastrointestinal No constipation 2017 Gastrointestinal No diarrhea 07/26/2017 Gastrointestinal gastroesophageal reflux 07/26/2017 Gastrointestinal No nausea 07/26/2017 Gastrointestinal No vomiting 07/26/2017 Musculoskeletal stiffness 07/26/2017 Musculoskeletal No swelling 07/26/2017 Musculoskeletal arthralgia(s) 07/26/2017 Musculoskeletal back pain 07/26/2017 Musculoskeletal No muscle weakness 2017 Musculoskeletal No myalgias 07/26/2017 Dermatologic No rash 07/26/2017 Constitutional No diaphoresis 07/26/2017 Constitutional fatigue 07/26/2017 Ears/Nose/Throat/Neck No nasal allergies 07/26/2017 Ears/Nose/Throat/Neck No nasal discharge 07/26/2017 Cardiovascular near-syncope/dizziness 10/2017 Respiratory No cough 07/26/2017 Respiratory No chest congestion 2017 Neurologic No alteration of consciousness 07/26/2017 Neurologic No mental status change 2017 Constitutional No recent illness 2017 Constitutional No chills 05/26/2017 Constitutional No fatigue 05/26/2017 Constitutional No fever 05/26/2017 Constitutional No insomnia 05/26/2017 Constitutional No malaise 05/26/2017 Eyes No blindness 05/26/2017 Eyes No vision change 05/26/2017 Ears/Nose/Throat/Neck No dental pain 08/2017 Ears/Nose/Throat/Neck No dizziness 2017 Ears/Nose/Throat/Neck No dysphagia 2017 Ears/Nose/Throat/Neck No headache 2017 Ears/Nose/Throat/Neck No hearing loss 08/2017 Ears/Nose/Throat/Neck No nasal allergies 05/26/2017 Ears/Nose/Throat/Neck No sore throat 08/2017 Ears/Nose/Throat/Neck No postnasal drip 05/26/2017 Ears/Nose/Throat/Neck No sinus congestion 05/26/2017 Cardiovascular No chest pain/pressure 08/2017 Cardiovascular No dyspnea 05/26/2017 Cardiovascular No edema 05/26/2017 Cardiovascular No exercise intolerance Cardiovascular No fatigue 05/26/2017 Cardiovascular No near-syncope/dizziness 05/26/2017 Respiratory No chest tightness 2017 Respiratory No cough 05/26/2017 Respiratory No dyspnea 05/26/2017 Respiratory No pedal edema 05/26/2017 Gastrointestinal No abdominal pain 2017 Gastrointestinal No constipation 2017 Gastrointestinal No diarrhea 05/26/2017 Gastrointestinal No gastroesophageal reflux 05/26/2017 Gastrointestinal No nausea 05/26/2017 Gastrointestinal No vomiting 05/26/2017 Genitourinary/Nephrology No dysuria 05/26 Genitourinary/Nephrology No nocturia 08/2017 Genitourinary/Nephrology No urinary incontinence 05/26/2017 Musculoskeletal stiffness 05/26/2017 Musculoskeletal No swelling 05/26/2017 Musculoskeletal arthralgia(s) 05/26/2017 Musculoskeletal back pain 05/26/2017 Musculoskeletal No muscle weakness 2017 Musculoskeletal No myalgias 05/26/2017 Dermatologic No rash 05/26/2017 Dermatologic No sores 05/26/2017 Dermatologic No scar 05/26/2017 Neurologic No dizziness 05/26/2017 Neurologic No headache 05/26/2017 Neurologic No neck pain 05/26/2017 Neurologic No syncope 05/26/2017 Psychiatric No anxiety 05/26/2017 Psychiatric No depression 05/26/2017 Constitutional No recent illness 2016 Constitutional No chills 04/11/2017 Constitutional fatigue 04/11/2017 Constitutional No fever 04/11/2017 Constitutional No insomnia 04/11/2017 Constitutional No malaise 04/11/2017 Eyes No blindness 04/11/2017 Eyes No vision change 04/11/2017 Ears/Nose/Throat/Neck No dental pain Ears/Nose/Throat/Neck No dizziness 2016 Ears/Nose/Throat/Neck No dysphagia 2016 Ears/Nose/Throat/Neck No headache 2016 Ears/Nose/Throat/Neck No hearing loss Ears/Nose/Throat/Neck No nasal allergies 04/11/2017 Ears/Nose/Throat/Neck No sore throat Ears/Nose/Throat/Neck No postnasal drip 04/11/2017 Ears/Nose/Throat/Neck No sinus congestion 04/11/2017 Cardiovascular No chest pain/pressure Cardiovascular dyspnea 04/11/2017 Cardiovascular No edema 04/11/2017 Cardiovascular exercise intolerance 04/11 Cardiovascular No fatigue 04/11/2017 Cardiovascular No near-syncope/dizziness 04/11/2017 Respiratory No chest tightness 2016 Respiratory No cough 04/11/2017 Respiratory No dyspnea 04/11/2017 Respiratory No pedal edema 04/11/2017 Gastrointestinal No abdominal pain 2016 Gastrointestinal No constipation 2016 Gastrointestinal No diarrhea 04/11/2017 Gastrointestinal No gastroesophageal reflux 04/11/2017 Gastrointestinal No nausea 04/11/2017 Gastrointestinal No vomiting 04/11/2017 Genitourinary/Nephrology No dysuria 04/11 Genitourinary/Nephrology No nocturia Genitourinary/Nephrology No urinary incontinence 04/11/2017 Musculoskeletal stiffness 04/11/2017 Musculoskeletal No swelling 04/11/2017 Musculoskeletal arthralgia(s) 04/11/2017 Musculoskeletal back pain 04/11/2017 Musculoskeletal No muscle weakness 2016 Musculoskeletal No myalgias 04/11/2017 Dermatologic No rash 04/11/2017 Dermatologic No sores 04/11/2017 Dermatologic No scar 04/11/2017 Neurologic No dizziness 04/11/2017 Neurologic No headache 04/11/2017 Neurologic No neck pain 04/11/2017 Neurologic No syncope 04/11/2017 Psychiatric No anxiety 04/11/2017 Psychiatric No depression 04/11/2017 Respiratory dyspnea on exertion 2016 Constitutional No recent illness 2016 Constitutional No chills 02/07/2017 Constitutional No fatigue 02/07/2017 Constitutional No fever 02/07/2017 Constitutional No insomnia 02/07/2017 Constitutional No malaise 02/07/2017 Ears/Nose/Throat/Neck No dizziness 2016 Ears/Nose/Throat/Neck No dysphagia 2016 Ears/Nose/Throat/Neck No headache 2016 Cardiovascular No dyspnea 02/07/2017 Cardiovascular No edema 02/07/2017 Cardiovascular No exercise intolerance Cardiovascular No fatigue 02/07/2017 Cardiovascular No near-syncope/dizziness 02/07/2017 Respiratory No chest tightness 2016 Respiratory No cough 02/07/2017 Respiratory No dyspnea 02/07/2017 Respiratory No pedal edema 02/07/2017 Gastrointestinal No abdominal pain 2016 Gastrointestinal No constipation 2016 Gastrointestinal No diarrhea 02/07/2017 Gastrointestinal No gastroesophageal reflux 02/07/2017 Gastrointestinal No nausea 02/07/2017 Gastrointestinal No vomiting 02/07/2017 Musculoskeletal stiffness 02/07/2017 Musculoskeletal arthralgia(s) 02/07/2017 Musculoskeletal back pain 02/07/2017 Musculoskeletal No muscle weakness 2016 Musculoskeletal No myalgias 02/07/2017 Neurologic No dizziness 02/07/2017 Neurologic No headache 02/07/2017 Neurologic No neck pain 02/07/2017 Neurologic No syncope 02/07/2017 Constitutional No recent illness 2016 Constitutional No chills 01/26/2017 Constitutional No fatigue 01/26/2017 Constitutional No fever 01/26/2017 Constitutional No insomnia 01/26/2017 Constitutional No malaise 01/26/2017 Eyes No blindness 01/26/2017 Eyes No vision change 01/26/2017 Ears/Nose/Throat/Neck No dental pain 10/2016 Ears/Nose/Throat/Neck No dizziness 2016 Ears/Nose/Throat/Neck No dysphagia 2016 Ears/Nose/Throat/Neck No headache 2016 Ears/Nose/Throat/Neck No hearing loss 10/2016 Ears/Nose/Throat/Neck No nasal allergies 01/26/2017 Ears/Nose/Throat/Neck No sore throat 10/2016 Ears/Nose/Throat/Neck No postnasal drip 01/26/2017 Ears/Nose/Throat/Neck No sinus congestion 01/26/2017 Cardiovascular No chest pain/pressure 10/2016 Cardiovascular No dyspnea 01/26/2017 Cardiovascular No edema 01/26/2017 Cardiovascular No exercise intolerance Cardiovascular No fatigue 01/26/2017 Cardiovascular No near-syncope/dizziness 01/26/2017 Respiratory No chest tightness 2016 Respiratory No cough 01/26/2017 Respiratory No dyspnea 01/26/2017 Respiratory No pedal edema 01/26/2017 Gastrointestinal No abdominal pain 2016 Gastrointestinal No constipation 2016 Gastrointestinal No diarrhea 01/26/2017 Gastrointestinal No gastroesophageal reflux 01/26/2017 Gastrointestinal No nausea 01/26/2017 Gastrointestinal No vomiting 01/26/2017 Genitourinary/Nephrology No dysuria 01/26 Genitourinary/Nephrology No nocturia 10/2016 Genitourinary/Nephrology No urinary incontinence 01/26/2017 Musculoskeletal stiffness 01/26/2017 Musculoskeletal No swelling 01/26/2017 Musculoskeletal arthralgia(s) 01/26/2017 Musculoskeletal back pain 01/26/2017 Musculoskeletal No muscle weakness 2016 Musculoskeletal No myalgias 01/26/2017 Dermatologic No rash 01/26/2017 Dermatologic No sores 01/26/2017 Dermatologic No scar 01/26/2017 Neurologic No dizziness 01/26/2017 Neurologic No headache 01/26/2017 Neurologic No neck pain 01/26/2017 Neurologic No syncope 01/26/2017 Psychiatric No anxiety 01/26/2017 Psychiatric No depression 01/26/2017 Constitutional No recent illness 2016 Constitutional No chills 10/19/2016 Constitutional No fatigue 10/19/2016 Constitutional No fever 10/19/2016 Constitutional No insomnia 10/19/2016 Constitutional No malaise 10/19/2016 Eyes No blindness 10/19/2016 Eyes No vision change 10/19/2016 Ears/Nose/Throat/Neck No dental pain Ears/Nose/Throat/Neck No dizziness 2016 Ears/Nose/Throat/Neck No dysphagia 2016 Ears/Nose/Throat/Neck No headache 2016 Ears/Nose/Throat/Neck No hearing loss Ears/Nose/Throat/Neck No nasal allergies 10/19/2016 Ears/Nose/Throat/Neck No sore throat Ears/Nose/Throat/Neck No postnasal drip 10/19/2016 Ears/Nose/Throat/Neck No sinus congestion 10/19/2016 Cardiovascular No chest pain/pressure Cardiovascular No dyspnea 10/19/2016 Cardiovascular No edema 10/19/2016 Cardiovascular No exercise intolerance Cardiovascular No fatigue 10/19/2016 Cardiovascular No near-syncope/dizziness 10/19/2016 Respiratory No chest tightness 2016 Respiratory No cough 10/19/2016 Respiratory No dyspnea 10/19/2016 Respiratory No pedal edema 10/19/2016 Gastrointestinal No abdominal pain 2016 Gastrointestinal No constipation 2016 Gastrointestinal No diarrhea 10/19/2016 Gastrointestinal No gastroesophageal reflux 10/19/2016 Gastrointestinal No nausea 10/19/2016 Gastrointestinal No vomiting 10/19/2016 Genitourinary/Nephrology No dysuria 10/19 Genitourinary/Nephrology No nocturia Genitourinary/Nephrology No urinary incontinence 10/19/2016 Musculoskeletal stiffness 10/19/2016 Musculoskeletal No swelling 10/19/2016 Musculoskeletal arthralgia(s) 10/19/2016 Musculoskeletal back pain 10/19/2016 Musculoskeletal No muscle weakness 2016 Musculoskeletal No myalgias 10/19/2016 Dermatologic No rash 10/19/2016 Dermatologic No sores 10/19/2016 Dermatologic No scar 10/19/2016 Neurologic No dizziness 10/19/2016 Neurologic No headache 10/19/2016 Neurologic No neck pain 10/19/2016 Neurologic No syncope 10/19/2016 Psychiatric No anxiety 10/19/2016 Psychiatric No depression 10/19/2016 Constitutional No recent illness 2016 Constitutional No chills 09/22/2016 Constitutional No fatigue 09/22/2016 Constitutional No fever 09/22/2016 Constitutional No insomnia 09/22/2016 Constitutional No malaise 09/22/2016 Eyes No blindness 09/22/2016 Eyes No vision change 09/22/2016 Ears/Nose/Throat/Neck No dental pain 07/2016 Ears/Nose/Throat/Neck No dizziness 2016 Ears/Nose/Throat/Neck No dysphagia 2016 Ears/Nose/Throat/Neck No headache 2016 Ears/Nose/Throat/Neck No hearing loss 07/2016 Ears/Nose/Throat/Neck No nasal allergies 09/22/2016 Ears/Nose/Throat/Neck No sore throat 07/2016 Ears/Nose/Throat/Neck No postnasal drip 09/22/2016 Ears/Nose/Throat/Neck No sinus congestion 09/22/2016 Cardiovascular No chest pain/pressure 07/2016 Cardiovascular No dyspnea 09/22/2016 Cardiovascular No edema 09/22/2016 Cardiovascular No exercise intolerance Cardiovascular fatigue 09/22/2016 Cardiovascular No near-syncope/dizziness 09/22/2016 Respiratory No chest tightness 2016 Respiratory No cough 09/22/2016 Respiratory No dyspnea 09/22/2016 Respiratory No pedal edema 09/22/2016 Gastrointestinal No abdominal pain 2016 Gastrointestinal No constipation 2016 Gastrointestinal No diarrhea 09/22/2016 Gastrointestinal No gastroesophageal reflux 09/22/2016 Gastrointestinal No nausea 09/22/2016 Gastrointestinal No vomiting 09/22/2016 Genitourinary/Nephrology No dysuria 09/22 Genitourinary/Nephrology No nocturia 07/2016 Genitourinary/Nephrology No urinary incontinence 09/22/2016 Musculoskeletal stiffness 09/22/2016 Musculoskeletal No swelling 09/22/2016 Musculoskeletal arthralgia(s) 09/22/2016 Musculoskeletal back pain 09/22/2016 Musculoskeletal No muscle weakness 2016 Musculoskeletal No myalgias 09/22/2016 Dermatologic No rash 09/22/2016 Dermatologic No sores 09/22/2016 Dermatologic No scar 09/22/2016 Neurologic No dizziness 09/22/2016 Neurologic No headache 09/22/2016 Neurologic No neck pain 09/22/2016 Neurologic No syncope 09/22/2016 Psychiatric No anxiety 09/22/2016 Psychiatric No depression 09/22/2016 Cardiovascular palpitations 09/22/2016 Constitutional No recent illness 2016 Constitutional No chills 08/31/2016 Constitutional No fatigue 08/31/2016 Constitutional No fever 08/31/2016 Constitutional No insomnia 08/31/2016 Constitutional No malaise 08/31/2016 Eyes No blindness 08/31/2016 Eyes No vision change 08/31/2016 Ears/Nose/Throat/Neck No dental pain 03/2017 Ears/Nose/Throat/Neck No dizziness 2016 Ears/Nose/Throat/Neck No dysphagia 2016 Ears/Nose/Throat/Neck No headache 2016 Ears/Nose/Throat/Neck No hearing loss 03/2017 Ears/Nose/Throat/Neck No nasal allergies 08/31/2016 Ears/Nose/Throat/Neck No sore throat 03/2017 Ears/Nose/Throat/Neck No postnasal drip 08/31/2016 Ears/Nose/Throat/Neck No sinus congestion 08/31/2016 Cardiovascular No chest pain/pressure 03/2017 Cardiovascular No dyspnea 08/31/2016 Cardiovascular No edema 08/31/2016 Cardiovascular No exercise intolerance Cardiovascular No fatigue 08/31/2016 Cardiovascular No near-syncope/dizziness 08/31/2016 Respiratory No chest tightness 2016 Respiratory No cough 08/31/2016 Respiratory No dyspnea 08/31/2016 Respiratory No pedal edema 08/31/2016 Gastrointestinal No abdominal pain 2016 Gastrointestinal No constipation 2016 Gastrointestinal No diarrhea 08/31/2016 Gastrointestinal No gastroesophageal reflux 08/31/2016 Gastrointestinal No nausea 08/31/2016 Gastrointestinal No vomiting 08/31/2016 Genitourinary/Nephrology No dysuria 08/31 Genitourinary/Nephrology No nocturia 03/2017 Genitourinary/Nephrology No urinary incontinence 08/31/2016 Musculoskeletal stiffness 08/31/2016 Musculoskeletal No swelling 08/31/2016 Musculoskeletal arthralgia(s) 08/31/2016 Musculoskeletal back pain 08/31/2016 Musculoskeletal No muscle weakness 2016 Musculoskeletal No myalgias 08/31/2016 Dermatologic No rash 08/31/2016 Dermatologic No sores 08/31/2016 Dermatologic No scar 08/31/2016 Neurologic No dizziness 08/31/2016 Neurologic No headache 08/31/2016 Neurologic No neck pain 08/31/2016 Neurologic No syncope 08/31/2016 Psychiatric No anxiety 08/31/2016 Psychiatric No depression 08/31/2016 Constitutional No recent illness 2016 Constitutional No anorexia 08/12/2016 Constitutional No night sweats 2016 Constitutional No chills 08/12/2016 Constitutional No diaphoresis 08/12/2016 Constitutional No fatigue 08/12/2016 Constitutional No insomnia 08/12/2016 Constitutional No fever 08/12/2016 Constitutional No malaise 08/12/2016 Constitutional No weight loss 08/12/2016 Constitutional No weight gain 08/12/2016 Musculoskeletal back pain 08/12/2016 Musculoskeletal No sciatica 08/12/2016 Constitutional No recent illness 2016 Constitutional No chills 07/28/2016 Constitutional No fatigue 07/28/2016 Constitutional No fever 07/28/2016 Constitutional No insomnia 07/28/2016 Constitutional No malaise 07/28/2016 Eyes No blindness 07/28/2016 Eyes No vision change 07/28/2016 Ears/Nose/Throat/Neck No dental pain 12/2016 Ears/Nose/Throat/Neck No dizziness 2016 Ears/Nose/Throat/Neck No dysphagia 2016 Ears/Nose/Throat/Neck No headache 2016 Ears/Nose/Throat/Neck No hearing loss 12/2016 Ears/Nose/Throat/Neck No nasal allergies 07/28/2016 Ears/Nose/Throat/Neck No sore throat 12/2016 Ears/Nose/Throat/Neck No postnasal drip 07/28/2016 Ears/Nose/Throat/Neck No sinus congestion 07/28/2016 Cardiovascular No chest pain/pressure 12/2016 Cardiovascular No dyspnea 07/28/2016 Cardiovascular No edema 07/28/2016 Cardiovascular No exercise intolerance Cardiovascular No fatigue 07/28/2016 Cardiovascular No near-syncope/dizziness 07/28/2016 Respiratory No chest tightness 2016 Respiratory No cough 07/28/2016 Respiratory No dyspnea 07/28/2016 Respiratory No pedal edema 07/28/2016 Gastrointestinal No abdominal pain 2016 Gastrointestinal No constipation 2016 Gastrointestinal No diarrhea 07/28/2016 Gastrointestinal No gastroesophageal reflux 07/28/2016 Gastrointestinal No nausea 07/28/2016 Gastrointestinal No vomiting 07/28/2016 Genitourinary/Nephrology No dysuria 07/28 Genitourinary/Nephrology No nocturia 12/2016 Genitourinary/Nephrology No urinary incontinence 07/28/2016 Musculoskeletal stiffness 07/28/2016 Musculoskeletal No swelling 07/28/2016 Musculoskeletal arthralgia(s) 07/28/2016 Musculoskeletal back pain 07/28/2016 Musculoskeletal No muscle weakness 2016 Musculoskeletal No myalgias 07/28/2016 Dermatologic No rash 07/28/2016 Dermatologic No sores 07/28/2016 Dermatologic No scar 07/28/2016 Neurologic No dizziness 07/28/2016 Neurologic No headache 07/28/2016 Neurologic No neck pain 07/28/2016 Neurologic No syncope 07/28/2016 Psychiatric No anxiety 07/28/2016 Psychiatric No depression 07/28/2016 Constitutional No recent illness 2015 Constitutional No chills 01/28/2016 Constitutional No fatigue 01/28/2016 Constitutional No fever 01/28/2016 Constitutional No insomnia 01/28/2016 Constitutional No malaise 01/28/2016 Eyes No blindness 01/28/2016 Eyes No vision change 01/28/2016 Ears/Nose/Throat/Neck No dental pain 11/2015 Ears/Nose/Throat/Neck No dizziness 2015 Ears/Nose/Throat/Neck No dysphagia 2015 Ears/Nose/Throat/Neck No headache 2015 Ears/Nose/Throat/Neck No hearing loss 11/2015 Ears/Nose/Throat/Neck No nasal allergies 01/28/2016 Ears/Nose/Throat/Neck No sore throat 11/2015 Ears/Nose/Throat/Neck No postnasal drip 01/28/2016 Ears/Nose/Throat/Neck No sinus congestion 01/28/2016 Cardiovascular No chest pain/pressure 11/2015 Cardiovascular No dyspnea 01/28/2016 Cardiovascular No edema 01/28/2016 Cardiovascular No exercise intolerance Cardiovascular No fatigue 01/28/2016 Cardiovascular No near-syncope/dizziness 01/28/2016 Respiratory No chest tightness 2015 Respiratory No cough 01/28/2016 Respiratory No dyspnea 01/28/2016 Respiratory No pedal edema 01/28/2016 Gastrointestinal No abdominal pain 2015 Gastrointestinal No constipation 2015 Gastrointestinal No diarrhea 01/28/2016 Gastrointestinal No gastroesophageal reflux 01/28/2016 Gastrointestinal No nausea 01/28/2016 Gastrointestinal No vomiting 01/28/2016 Genitourinary/Nephrology No dysuria 01/27 Genitourinary/Nephrology No nocturia 11/2015 Genitourinary/Nephrology No urinary incontinence 01/28/2016 Musculoskeletal stiffness 01/28/2016 Musculoskeletal No swelling 01/28/2016 Musculoskeletal arthralgia(s) 01/28/2016 Musculoskeletal back pain 01/28/2016 Musculoskeletal No muscle weakness 2015 Musculoskeletal No myalgias 01/28/2016 Dermatologic No scar 01/28/2016 Neurologic No dizziness 01/28/2016 Neurologic No headache 01/28/2016 Neurologic No neck pain 01/28/2016 Neurologic No syncope 01/28/2016 Psychiatric No anxiety 01/28/2016 Psychiatric No depression 01/28/2016 Dermatologic cellulitis 01/28/2016 Constitutional No recent illness 2015 Constitutional No chills 07/29/2015 Constitutional No fatigue 07/29/2015 Constitutional No fever 07/29/2015 Constitutional No insomnia 07/29/2015 Constitutional No malaise 07/29/2015 Eyes No blindness 07/29/2015 Eyes No vision change 07/29/2015 Ears/Nose/Throat/Neck No dental pain 12/2015 Ears/Nose/Throat/Neck No dizziness 2015 Ears/Nose/Throat/Neck No dysphagia 2015 Ears/Nose/Throat/Neck No headache 2015 Ears/Nose/Throat/Neck No hearing loss 12/2015 Ears/Nose/Throat/Neck No nasal allergies 07/29/2015 Ears/Nose/Throat/Neck No sore throat 12/2015 Ears/Nose/Throat/Neck No postnasal drip 07/29/2015 Ears/Nose/Throat/Neck No sinus congestion 07/29/2015 Cardiovascular No chest pain/pressure 12/2015 Cardiovascular No dyspnea 07/29/2015 Cardiovascular No edema 07/29/2015 Cardiovascular No exercise intolerance Cardiovascular No fatigue 07/29/2015 Cardiovascular No near-syncope/dizziness 07/29/2015 Respiratory No chest tightness 2015 Respiratory No cough 07/29/2015 Respiratory No dyspnea 07/29/2015 Respiratory No pedal edema 07/29/2015 Gastrointestinal No abdominal pain 2015 Gastrointestinal No constipation 2015 Gastrointestinal No diarrhea 07/29/2015 Gastrointestinal No gastroesophageal reflux 07/29/2015 Gastrointestinal No nausea 07/29/2015 Gastrointestinal No vomiting 07/29/2015 Genitourinary/Nephrology No dysuria 07/28 Genitourinary/Nephrology No nocturia 12/2015 Genitourinary/Nephrology No urinary incontinence 07/29/2015 Musculoskeletal stiffness 07/29/2015 Musculoskeletal No swelling 07/29/2015 Musculoskeletal arthralgia(s) 07/29/2015 Musculoskeletal back pain 07/29/2015 Musculoskeletal No muscle weakness 2015 Musculoskeletal No myalgias 07/29/2015 Dermatologic No rash 07/29/2015 Dermatologic No sores 07/29/2015 Dermatologic No scar 07/29/2015 Neurologic No dizziness 07/29/2015 Neurologic No headache 07/29/2015 Neurologic No neck pain 07/29/2015 Neurologic No syncope 07/29/2015 Psychiatric No anxiety 07/29/2015 Psychiatric No depression 07/29/2015 Constitutional No recent illness 2014 Constitutional No chills 12/23/2014 Constitutional No fatigue 12/23/2014 Constitutional No fever 12/23/2014 Constitutional No insomnia 12/23/2014 Constitutional No malaise 12/23/2014 Eyes No blindness 12/23/2014 Eyes No vision change 12/23/2014 Ears/Nose/Throat/Neck No dental pain 07/2014 Ears/Nose/Throat/Neck No dizziness 2014 Ears/Nose/Throat/Neck No dysphagia 2014 Ears/Nose/Throat/Neck No headache 2014 Ears/Nose/Throat/Neck No hearing loss 07/2014 Ears/Nose/Throat/Neck No nasal allergies 12/23/2014 Ears/Nose/Throat/Neck No sore throat 07/2014 Ears/Nose/Throat/Neck No postnasal drip 12/23/2014 Ears/Nose/Throat/Neck No sinus congestion 12/23/2014 Cardiovascular No chest pain/pressure 07/2014 Cardiovascular No dyspnea 12/23/2014 Cardiovascular No edema 12/23/2014 Cardiovascular No exercise intolerance Cardiovascular No fatigue 12/23/2014 Cardiovascular No near-syncope/dizziness 12/23/2014 Respiratory No chest tightness 2014 Respiratory No cough 12/23/2014 Respiratory No dyspnea 12/23/2014 Respiratory No pedal edema 12/23/2014 Gastrointestinal No abdominal pain 2014 Gastrointestinal No constipation 2014 Gastrointestinal No diarrhea 12/23/2014 Gastrointestinal No gastroesophageal reflux 12/23/2014 Gastrointestinal No nausea 12/23/2014 Gastrointestinal No vomiting 12/23/2014 Genitourinary/Nephrology No dysuria 12/23 Genitourinary/Nephrology No nocturia 07/2014 Genitourinary/Nephrology No urinary incontinence 12/23/2014 Musculoskeletal stiffness 12/23/2014 Musculoskeletal No swelling 12/23/2014 Musculoskeletal No muscle weakness 2014 Musculoskeletal No myalgias 12/23/2014 Dermatologic No rash 12/23/2014 Dermatologic No sores 12/23/2014 Dermatologic No scar 12/23/2014 Neurologic No dizziness 12/23/2014 Neurologic No headache 12/23/2014 Neurologic No neck pain 12/23/2014 Neurologic No syncope 12/23/2014 Psychiatric No anxiety 12/23/2014 Psychiatric No depression 12/23/2014 Musculoskeletal arthralgia(s) 12/23/2014 Musculoskeletal back pain 12/23/2014 Physical Exam Exam Name System Name Item Name Status Result Effective Dates Notes Full Exam - General 1994 Constitutional general appearance Overall: well developed 05/05/2018 None Full Exam - General 1994 Constitutional general appearance Overall: in no acute distress 05/05/2018 None Full Exam - General 1994 Constitutional general appearance Overall: well nourished 05/05/2018 None Full Exam - General 1994 Eyes conjunctiva /eyelids Overall: conjunctiva clear 05/05/2018 None Full Exam - General 1994 Eyes conjunctiva /eyelids Overall: eyelids normal 05/05/2018 None Full Exam - General 1994 Ears/Nose/Throat lips/teeth/gingiva Overall: benign lips 05/05/2018 None Full Exam - General 1994 Respiratory respiratory effort/rhythm Overall: no retractions 05/05/2018 None Full Exam - General 1994 Respiratory respiratory effort/rhythm Overall: normal rate 05/05/2018 None Full Exam - General 1994 Musculoskeletal head and neck Overall: head atraumatic 05/05/2018 None Full Exam - General 1994 Neurologic cranial nerves Overall: crainial nerves 2 - 12 grossly intact 05/05/2018 None Full Exam - General 1994 Psychiatric orientation/consciousness Overall: oriented to person, place and time 05/05/2018 None Full Exam - General 1994 Psychiatric mood and affect Overall: normal mood and affect 05/05/2018 None Full Exam - General 1994 Psychiatric appearance Overall: well-groomed, good eye contact 05/05/2018 None Full Exam - General 1994 Constitutional general appearance Overall: well developed 04/03/2018 None Full Exam - General 1994 Constitutional general appearance Overall: in no acute distress 04/03/2018 None Full Exam - General 1994 Constitutional general appearance Overall: well nourished 04/03/2018 None Full Exam - General 1994 Constitutional general appearance Hygiene/Attention to Grooming: good hygiene 04/03/2018 None Full Exam - General 1994 Eyes conjunctiva /eyelids Overall: conjunctiva clear 04/03/2018 None Full Exam - General 1994 Eyes conjunctiva /eyelids Overall: cornea clear 04/03/2018 None Full Exam - General 1994 Eyes conjunctiva /eyelids Overall: eyelids normal 04/03/2018 None Full Exam - General 1994 Eyes pupils and irises Overall: pupils equal, round, reactive to light and accomodation 04/03/2018 None Full Exam - General 1994 Ears/Nose/Throat lips/teeth/gingiva Overall: benign lips 04/03/2018 None Full Exam - General 1994 Ears/Nose/Throat oral cavity/pharynx/larynx Overall: oral mucosa clear 04/03/2018 None Full Exam - General 1994 Ears/Nose/Throat oral cavity/pharynx/larynx Overall: oropharyngeal mucosa clear 04/03/2018 None Full Exam - General 1994 Respiratory auscultation Overall: breath sounds clear bilaterally 04/03/2018 None Full Exam - General 1994 Respiratory respiratory effort/rhythm Overall: no retractions 04/03/2018 None Full Exam - General 1994 Respiratory respiratory effort/rhythm Overall: normal rate 04/03/2018 None Full Exam - General 1994 Cardiovascular auscultation of heart Overall: regular rate 04/03/2018 None Full Exam - General 1994 Cardiovascular auscultation of heart Overall: normal heart sounds 04/03/2018 None Full Exam - General 1994 Abdomen abdominal exam Overall: no tenderness 04/03/2018 None Full Exam - General 1994 Abdomen abdominal exam Overall: normal bowel sounds 04/03/2018 None Full Exam - General 1994 Musculoskeletal head and neck Overall: head atraumatic 04/03/2018 None Full Exam - General 1994 Neurologic cranial nerves Overall: crainial nerves 2 - 12 grossly intact 04/03/2018 None Full Exam - General 1994 Psychiatric orientation/consciousness Overall: oriented to person, place and time 04/03/2018 None Full Exam - General 1994 Psychiatric mood and affect Overall: normal mood and affect 04/03/2018 None Full Exam - General 1994 Integument inspection of skin Overall: no rash, lesions 04/03/2018 area of pruritis is not erythematous or papular or raised on arms, ears, scalp Full Exam - General 1994 Constitutional general appearance Overall: well developed 03/06/2018 None Full Exam - General 1994 Constitutional general appearance Overall: in no acute distress 03/06/2018 None Full Exam - General 1994 Constitutional general appearance Overall: well nourished 03/06/2018 None Full Exam - General 1994 Constitutional general appearance Hygiene/Attention to Grooming: good hygiene 03/06/2018 None Full Exam - General 1994 Eyes conjunctiva /eyelids Overall: conjunctiva clear 03/06/2018 None Full Exam - General 1994 Eyes conjunctiva /eyelids Overall: cornea clear 03/06/2018 None Full Exam - General 1994 Eyes conjunctiva /eyelids Overall: eyelids normal 03/06/2018 None Full Exam - General 1994 Eyes pupils and irises Overall: pupils equal, round, reactive to light and accomodation 03/06/2018 None Full Exam - General 1994 Ears/Nose/Throat lips/teeth/gingiva Overall: benign lips 03/06/2018 None Full Exam - General 1994 Ears/Nose/Throat oral cavity/pharynx/larynx Overall: oral mucosa clear 03/06/2018 None Full Exam - General 1994 Ears/Nose/Throat oral cavity/pharynx/larynx Overall: oropharyngeal mucosa clear 03/06/2018 None Full Exam - General 1994 Respiratory auscultation Overall: breath sounds clear bilaterally 03/06/2018 None Full Exam - General 1994 Respiratory respiratory effort/rhythm Overall: no retractions 03/06/2018 None Full Exam - General 1994 Respiratory respiratory effort/rhythm Overall: normal rate 03/06/2018 None Full Exam - General 1994 Cardiovascular auscultation of heart Overall: regular rate 03/06/2018 None Full Exam - General 1994 Cardiovascular auscultation of heart Overall: normal heart sounds 03/06/2018 None Full Exam - General 1994 Abdomen abdominal exam Overall: no tenderness 03/06/2018 None Full Exam - General 1994 Abdomen abdominal exam Overall: normal bowel sounds 03/06/2018 None Full Exam - General 1994 Musculoskeletal head and neck Overall: head atraumatic 03/06/2018 None Full Exam - General 1994 Neurologic cranial nerves Overall: crainial nerves 2 - 12 grossly intact 03/06/2018 None Full Exam - General 1994 Psychiatric orientation/consciousness Overall: oriented to person, place and time 03/06/2018 None Full Exam - General 1994 Psychiatric mood and affect Overall: normal mood and affect 03/06/2018 None Full Exam - Orthopedics Constitutional general appearance Overall: well nourished 02/22/2018 None Full Exam - Orthopedics Constitutional general appearance Overall: well developed 02/22/2018 None Full Exam - Orthopedics Constitutional general appearance Overall: in no acute distress 02/22/2018 None Full Exam - Orthopedics Eyes conjunctiva/ eyelids Overall: conjunctiva clear 02/22/2018 None Full Exam - Orthopedics Eyes conjunctiva/ eyelids Overall: eyelids normal 02/22/2018 None Full Exam - Orthopedics Ears/Nose/Throat lips/teeth/gingiva Overall: benign lips 02/22/2018 None Full Exam - Orthopedics Ears/Nose/Throat oral cavity/pharynx/larynx Overall: oral mucosa clear 02/22/2018 None Full Exam - Orthopedics Respiratory respiratory effort/rhythm Overall: no retractions 02/22/2018 None Full Exam - Orthopedics Respiratory respiratory effort/rhythm Overall: normal rate 02/22/2018 None Full Exam - Orthopedics Psychiatric orientation/consciousness Overall: oriented to person, place and time 02/22/2018 None Full Exam - Orthopedics Psychiatric mood and affect Overall: normal mood and affect 02/22/2018 None Full Exam - Orthopedics Psychiatric appearance Overall: well-groomed, good eye contact 02/22/2018 None Full Exam - Orthopedics MS: head/neck insp & palp - H/N Overall: head atraumatic 02/22/2018 None Full Exam - Orthopedics MS: spine/rib/pelvis insp & palp - S/R/P Sacroiliac palpation: left sacroiliac joint tenderness 02/22/2018 None Full Exam - Orthopedics MS: spine/rib/pelvis insp & palp - S/R/P Sacroiliac palpation: right sacroiliac joint tenderness 02/22/2018 None Full Exam - Orthopedics Abdomen abdominal exam Overall: normal bowel sounds 02/22/2018 None Full Exam - Orthopedics Abdomen abdominal exam Overall: no tenderness 02/22/2018 None Full Exam - Orthopedics Respiratory auscultation Overall: breath sounds clear bilaterally 02/22/2018 None Full Exam - Orthopedics Respiratory auscultation Diffuse: diminished 02/22/2018 None Full Exam - General 1994 Constitutional general appearance Overall: well developed 12/13/2017 None Full Exam - General 1994 Constitutional general appearance Overall: in no acute distress 12/13/2017 None Full Exam - General 1994 Constitutional general appearance Overall: well nourished 12/13/2017 None Full Exam - General 1994 Constitutional general appearance Hygiene/Attention to Grooming: good hygiene 12/13/2017 None Full Exam - General 1994 Eyes conjunctiva /eyelids Overall: conjunctiva clear 12/13/2017 None Full Exam - General 1994 Eyes conjunctiva /eyelids Overall: cornea clear 12/13/2017 None Full Exam - General 1994 Eyes conjunctiva /eyelids Overall: eyelids normal 12/13/2017 None Full Exam - General 1994 Eyes pupils and irises Overall: pupils equal, round, reactive to light and accomodation 12/13/2017 None Full Exam - General 1994 Ears/Nose/Throat lips/teeth/gingiva Overall: benign lips 12/13/2017 None Full Exam - General 1994 Ears/Nose/Throat oral cavity/pharynx/larynx Overall: oral mucosa clear 12/13/2017 None Full Exam - General 1994 Ears/Nose/Throat oral cavity/pharynx/larynx Overall: oropharyngeal mucosa clear 12/13/2017 None Full Exam - General 1994 Respiratory auscultation Overall: breath sounds clear bilaterally 12/13/2017 None Full Exam - General 1994 Respiratory respiratory effort/rhythm Overall: no retractions 12/13/2017 None Full Exam - General 1994 Respiratory respiratory effort/rhythm Overall: normal rate 12/13/2017 None Full Exam - General 1994 Cardiovascular auscultation of heart Overall: regular rate 12/13/2017 None Full Exam - General 1994 Cardiovascular auscultation of heart Overall: normal heart sounds 12/13/2017 None Full Exam - General 1994 Abdomen abdominal exam Overall: no tenderness 12/13/2017 None Full Exam - General 1994 Abdomen abdominal exam Overall: normal bowel sounds 12/13/2017 None Full Exam - General 1994 Psychiatric orientation/consciousness Overall: oriented to person, place and time 12/13/2017 None Full Exam - General 1994 Psychiatric mood and affect Overall: normal mood and affect 12/13/2017 None Full Exam - General 1994 Constitutional general appearance Overall: well developed 11/29/2017 None Full Exam - General 1994 Constitutional general appearance Overall: in no acute distress 11/29/2017 None Full Exam - General 1994 Constitutional general appearance Overall: well nourished 11/29/2017 None Full Exam - General 1994 Constitutional general appearance Hygiene/Attention to Grooming: good hygiene 11/29/2017 None Full Exam - General 1994 Eyes conjunctiva /eyelids Overall: conjunctiva clear 11/29/2017 None Full Exam - General 1994 Eyes conjunctiva /eyelids Overall: cornea clear 11/29/2017 None Full Exam - General 1994 Eyes conjunctiva /eyelids Overall: eyelids normal 11/29/2017 None Full Exam - General 1994 Eyes pupils and irises Overall: pupils equal, round, reactive to light and accomodation 11/29/2017 None Full Exam - General 1994 Ears/Nose/Throat lips/teeth/gingiva Overall: benign lips 11/29/2017 None Full Exam - General 1994 Ears/Nose/Throat oral cavity/pharynx/larynx Overall: oral mucosa clear 11/29/2017 None Full Exam - General 1994 Ears/Nose/Throat oral cavity/pharynx/larynx Overall: oropharyngeal mucosa clear 11/29/2017 None Full Exam - General 1994 Respiratory auscultation Overall: breath sounds clear bilaterally 11/29/2017 None Full Exam - General 1994 Respiratory respiratory effort/rhythm Overall: no retractions 11/29/2017 None Full Exam - General 1994 Respiratory respiratory effort/rhythm Overall: normal rate 11/29/2017 None Full Exam - General 1994 Cardiovascular auscultation of heart Overall: regular rate 11/29/2017 None Full Exam - General 1994 Cardiovascular auscultation of heart Overall: normal heart sounds 11/29/2017 None Full Exam - General 1994 Abdomen abdominal exam Overall: no tenderness 11/29/2017 None Full Exam - General 1994 Abdomen abdominal exam Overall: normal bowel sounds 11/29/2017 None Full Exam - General 1994 Musculoskeletal head and neck Overall: head atraumatic 11/29/2017 None Full Exam - General 1994 Neurologic cranial nerves Overall: crainial nerves 2 - 12 grossly intact 11/29/2017 None Full Exam - General 1994 Psychiatric orientation/consciousness Overall: oriented to person, place and time 11/29/2017 None Full Exam - General 1994 Psychiatric mood and affect Overall: normal mood and affect 11/29/2017 None Full Exam - General 1994 Constitutional general appearance Overall: well developed 10/27/2017 None Full Exam - General 1994 Constitutional general appearance Overall: in no acute distress 10/27/2017 None Full Exam - General 1994 Constitutional general appearance Overall: well nourished 10/27/2017 None Full Exam - General 1994 Constitutional general appearance Hygiene/Attention to Grooming: good hygiene 10/27/2017 None Full Exam - General 1994 Eyes conjunctiva /eyelids Overall: conjunctiva clear 10/27/2017 None Full Exam - General 1994 Eyes conjunctiva /eyelids Overall: cornea clear 10/27/2017 None Full Exam - General 1994 Eyes conjunctiva /eyelids Overall: eyelids normal 10/27/2017 None Full Exam - General 1994 Eyes pupils and irises Overall: pupils equal, round, reactive to light and accomodation 10/27/2017 None Full Exam - General 1994 Ears/Nose/Throat lips/teeth/gingiva Overall: benign lips 10/27/2017 None Full Exam - General 1994 Ears/Nose/Throat oral cavity/pharynx/larynx Overall: oral mucosa clear 10/27/2017 None Full Exam - General 1995 Ears/Nose/Throat oral cavity/pharynx/larynx Overall: oropharyngeal mucosa clear 10/27/2017 None Full Exam - General 1994 Respiratory auscultation Overall: breath sounds clear bilaterally 10/27/2017 None Full Exam - General 1994 Respiratory respiratory effort/rhythm Overall: no retractions 10/27/2017 None Full Exam - General 1994 Respiratory respiratory effort/rhythm Overall: normal rate 10/27/2017 None Full Exam - General 1994 Cardiovascular auscultation of heart Overall: regular rate 10/27/2017 None Full Exam - General 1994 Cardiovascular auscultation of heart Overall: normal heart sounds 10/27/2017 None Full Exam - General 1994 Abdomen abdominal exam Overall: no tenderness 10/27/2017 None Full Exam - General 1994 Abdomen abdominal exam Overall: normal bowel sounds 10/27/2017 None Full Exam - General 1994 Musculoskeletal head and neck Overall: head atraumatic 10/27/2017 None Full Exam - General 1994 Neurologic cranial nerves Overall: crainial nerves 2 - 12 grossly intact 10/27/2017 None Full Exam - General 1994 Psychiatric orientation/consciousness Overall: oriented to person, place and time 10/27/2017 None Full Exam - General 1994 Psychiatric mood and affect Overall: normal mood and affect 10/27/2017 None Full Exam - General 1994 Constitutional general appearance Hygiene/Attention to Grooming: good hygiene 07/26/2017 None Full Exam - General 1994 Eyes conjunctiva /eyelids Overall: conjunctiva clear 07/26/2017 None Full Exam - General 1994 Eyes conjunctiva /eyelids Overall: cornea clear 07/26/2017 None Full Exam - General 1994 Eyes conjunctiva /eyelids Overall: eyelids normal 07/26/2017 None Full Exam - General 1994 Eyes pupils and irises Overall: pupils equal, round, reactive to light and accomodation 07/26/2017 None Full Exam - General 1994 Ears/Nose/Throat lips/teeth/gingiva Overall: benign lips 07/26/2017 None Full Exam - General 1994 Ears/Nose/Throat oral cavity/pharynx/larynx Overall: oral mucosa clear 07/26/2017 None Full Exam - General 1994 Ears/Nose/Throat oral cavity/pharynx/larynx Overall: oropharyngeal mucosa clear 07/26/2017 None Full Exam - General 1994 Respiratory auscultation Overall: breath sounds clear bilaterally 07/26/2017 None Full Exam - General 1994 Respiratory respiratory effort/rhythm Overall: no retractions 07/26/2017 None Full Exam - General 1994 Respiratory respiratory effort/rhythm Overall: normal rate 07/26/2017 None Full Exam - General 1994 Cardiovascular auscultation of heart Overall: regular rate 07/26/2017 None Full Exam - General 1994 Cardiovascular auscultation of heart Overall: normal heart sounds 07/26/2017 None Full Exam - General 1994 Abdomen abdominal exam Overall: no tenderness 07/26/2017 None Full Exam - General 1994 Abdomen abdominal exam Overall: normal bowel sounds 07/26/2017 None Full Exam - General 1994 Musculoskeletal head and neck Overall: head atraumatic 07/26/2017 None Full Exam - General 1994 Neurologic cranial nerves Overall: crainial nerves 2 - 12 grossly intact 07/26/2017 None Full Exam - General 1994 Psychiatric orientation/consciousness Overall: oriented to person, place and time 07/26/2017 None Full Exam - General 1994 Psychiatric mood and affect Overall: normal mood and affect 07/26/2017 None Full Exam - General 1994 Constitutional general appearance Overall: well developed 07/26/2017 None Full Exam - General 1994 Constitutional general appearance Overall: in no acute distress 07/26/2017 None Full Exam - General 1994 Constitutional general appearance Overall: well nourished 07/26/2017 None Full Exam - General 1994 Constitutional general appearance Development: well developed 05/26/2017 None Full Exam - General 1994 Constitutional general appearance Development: appears stated age 0105/26/2017 None Full Exam - General 1994 Constitutional general appearance Hygiene/Attention to Grooming: good hygiene 05/26/2017 None Full Exam - General 1994 Eyes conjunctiva /eyelids Overall: conjunctiva clear 05/26/2017 None Full Exam - General 1994 Eyes conjunctiva /eyelids Overall: cornea clear 05/26/2017 None Full Exam - General 1994 Eyes conjunctiva /eyelids Overall: eyelids normal 05/26/2017 None Full Exam - General 1994 Eyes pupils and irises Overall: pupils equal, round, reactive to light and accomodation 05/26/2017 None Full Exam - General 1994 Ears/Nose/Throat otoscopic exam Overall: external auditory canals clear 05/26/2017 None Full Exam - General 1994 Ears/Nose/Throat otoscopic exam Overall: tympanic membranes clear 05/26/2017 None Full Exam - General 1994 Ears/Nose/Throat lips/teeth/gingiva Overall: benign lips 05/26/2017 None Full Exam - General 1994 Ears/Nose/Throat lips/teeth/gingiva Overall: normal dentition 05/26/2017 None Full Exam - General 1994 Ears/Nose/Throat oral cavity/pharynx/larynx Overall: oral mucosa clear 05/26/2017 None Full Exam - General 1994 Ears/Nose/Throat oral cavity/pharynx/larynx Overall: oropharyngeal mucosa clear 05/26/2017 None Full Exam - General 1994 Ears/Nose/Throat oral cavity/pharynx/larynx Overall: hypopharynx benign 05/26/2017 None Full Exam - General 1994 Ears/Nose/Throat oral cavity/pharynx/larynx Overall: no masses 05/26/2017 None Full Exam - General 1994 Respiratory auscultation Overall: breath sounds clear bilaterally 05/26/2017 None Full Exam - General 1994 Respiratory respiratory effort/rhythm Overall: no retractions 05/26/2017 None Full Exam - General 1994 Respiratory respiratory effort/rhythm Overall: normal rate 05/26/2017 None Full Exam - General 1994 Cardiovascular extremities Overall: no clubbing 05/26/2017 None Full Exam - General 1994 Cardiovascular auscultation of heart Overall: regular rate 05/26/2017 None Full Exam - General 1994 Cardiovascular auscultation of heart Overall: normal heart sounds 05/26/2017 None Full Exam - General 1994 Abdomen abdominal exam Overall: no tenderness 05/26/2017 None Full Exam - General 1994 Abdomen abdominal exam Overall: normal bowel sounds 05/26/2017 None Full Exam - General 1994 Musculoskeletal spine, ribs and pelvis Overall: spine benign 05/26/2017 None Full Exam - General 1994 Musculoskeletal spine, ribs and pelvis Overall: good posture 05/26/2017 None Full Exam - General 1994 Musculoskeletal head and neck Overall: head atraumatic 05/26/2017 None Full Exam - General 1994 Musculoskeletal head and neck Overall: cervical spine benign 05/26/2017 None Full Exam - General 1994 Neurologic deep tendon reflexes Overall: deep tendon reflexes intact 05/26/2017 None Full Exam - General 1994 Neurologic cranial nerves Overall: crainial nerves 2 - 12 grossly intact 05/26/2017 None Full Exam - General 1994 Psychiatric orientation/consciousness Overall: oriented to person, place and time 05/26/2017 None Full Exam - General 1994 Psychiatric mood and affect Overall: normal mood and affect 05/26/2017 None Full Exam - General 1994 Constitutional general appearance Development: well developed 04/11/2017 None Full Exam - General 1994 Constitutional general appearance Development: appears stated age 1104/11/2017 None Full Exam - General 1994 Constitutional general appearance Hygiene/Attention to Grooming: good hygiene 04/11/2017 None Full Exam - General 1994 Eyes conjunctiva /eyelids Overall: conjunctiva clear 04/11/2017 None Full Exam - General 1994 Eyes conjunctiva /eyelids Overall: cornea clear 04/11/2017 None Full Exam - General 1994 Eyes conjunctiva /eyelids Overall: eyelids normal 04/11/2017 None Full Exam - General 1994 Eyes pupils and irises Overall: pupils equal, round, reactive to light and accomodation 04/11/2017 None Full Exam - General 1994 Ears/Nose/Throat otoscopic exam Overall: external auditory canals clear 04/11/2017 None Full Exam - General 1994 Ears/Nose/Throat otoscopic exam Overall: tympanic membranes clear 04/11/2017 None Full Exam - General 1994 Ears/Nose/Throat lips/teeth/gingiva Overall: benign lips 04/11/2017 None Full Exam - General 1994 Ears/Nose/Throat lips/teeth/gingiva Overall: normal dentition 04/11/2017 None Full Exam - General 1994 Ears/Nose/Throat oral cavity/pharynx/larynx Overall: oral mucosa clear 04/11/2017 None Full Exam - General 1994 Ears/Nose/Throat oral cavity/pharynx/larynx Overall: oropharyngeal mucosa clear 04/11/2017 None Full Exam - General 1994 Ears/Nose/Throat oral cavity/pharynx/larynx Overall: hypopharynx benign 04/11/2017 None Full Exam - General 1994 Ears/Nose/Throat oral cavity/pharynx/larynx Overall: no masses 04/11/2017 None Full Exam - General 1994 Respiratory auscultation Overall: breath sounds clear bilaterally 04/11/2017 None Full Exam - General 1994 Respiratory respiratory effort/rhythm Overall: no retractions 04/11/2017 None Full Exam - General 1994 Respiratory respiratory effort/rhythm Overall: normal rate 04/11/2017 None Full Exam - General 1994 Cardiovascular extremities Overall: no clubbing 04/11/2017 None Full Exam - General 1994 Cardiovascular auscultation of heart Overall: regular rate 04/11/2017 None Full Exam - General 1994 Cardiovascular auscultation of heart Overall: normal heart sounds 04/11/2017 None Full Exam - General 1994 Abdomen abdominal exam Overall: no tenderness 04/11/2017 None Full Exam - General 1994 Abdomen abdominal exam Overall: normal bowel sounds 04/11/2017 None Full Exam - General 1994 Musculoskeletal spine, ribs and pelvis Overall: spine benign 04/11/2017 None Full Exam - General 1994 Musculoskeletal spine, ribs and pelvis Overall: good posture 04/11/2017 None Full Exam - General 1994 Musculoskeletal head and neck Overall: head atraumatic 04/11/2017 None Full Exam - General 1994 Musculoskeletal head and neck Overall: cervical spine benign 04/11/2017 None Full Exam - General 1994 Neurologic deep tendon reflexes Overall: deep tendon reflexes intact 04/11/2017 None Full Exam - General 1994 Neurologic cranial nerves Overall: crainial nerves 2 - 12 grossly intact 04/11/2017 None Full Exam - General 1994 Psychiatric orientation/consciousness Overall: oriented to person, place and time 04/11/2017 None Full Exam - General 1994 Psychiatric mood and affect Overall: normal mood and affect 04/11/2017 None Full Exam - General 1994 Constitutional general appearance Development: well developed 02/07/2017 None Full Exam - General 1994 Constitutional general appearance Development: appears stated age 0902/07/2017 None Full Exam - General 1994 Constitutional general appearance Hygiene/Attention to Grooming: good hygiene 02/07/2017 None Full Exam - General 1994 Eyes conjunctiva /eyelids Overall: conjunctiva clear 02/07/2017 None Full Exam - General 1994 Eyes conjunctiva /eyelids Overall: cornea clear 02/07/2017 None Full Exam - General 1994 Eyes conjunctiva /eyelids Overall: eyelids normal 02/07/2017 None Full Exam - General 1994 Eyes pupils and irises Overall: pupils equal, round, reactive to light and accomodation 02/07/2017 None Full Exam - General 1994 Ears/Nose/Throat otoscopic exam Overall: external auditory canals clear 02/07/2017 None Full Exam - General 1994 Ears/Nose/Throat otoscopic exam Overall: tympanic membranes clear 02/07/2017 None Full Exam - General 1994 Ears/Nose/Throat lips/teeth/gingiva Overall: benign lips 02/07/2017 None Full Exam - General 1994 Ears/Nose/Throat lips/teeth/gingiva Overall: normal dentition 02/07/2017 None Full Exam - General 1994 Ears/Nose/Throat oral cavity/pharynx/larynx Overall: oral mucosa clear 02/07/2017 None Full Exam - General 1994 Ears/Nose/Throat oral cavity/pharynx/larynx Overall: oropharyngeal mucosa clear 02/07/2017 None Full Exam - General 1994 Ears/Nose/Throat oral cavity/pharynx/larynx Overall: hypopharynx benign 02/07/2017 None Full Exam - General 1994 Ears/Nose/Throat oral cavity/pharynx/larynx Overall: no masses 02/07/2017 None Full Exam - General 1994 Respiratory auscultation Overall: breath sounds clear bilaterally 02/07/2017 None Full Exam - General 1994 Respiratory respiratory effort/rhythm Overall: no retractions 02/07/2017 None Full Exam - General 1994 Respiratory respiratory effort/rhythm Overall: normal rate 02/07/2017 None Full Exam - General 1994 Cardiovascular extremities Overall: no clubbing 02/07/2017 None Full Exam - General 1994 Cardiovascular auscultation of heart Overall: regular rate 02/07/2017 None Full Exam - General 1994 Cardiovascular auscultation of heart Overall: normal heart sounds 02/07/2017 None Full Exam - General 1994 Musculoskeletal spine, ribs and pelvis Overall: good posture 02/07/2017 None Full Exam - General 1994 Musculoskeletal head and neck Overall: head atraumatic 02/07/2017 None Full Exam - General 1994 Musculoskeletal head and neck Overall: cervical spine benign 02/07/2017 None Full Exam - General 1994 Neurologic deep tendon reflexes Overall: deep tendon reflexes intact 02/07/2017 None Full Exam - General 1994 Neurologic cranial nerves Overall: crainial nerves 2 - 12 grossly intact 02/07/2017 None Full Exam - General 1994 Psychiatric orientation/consciousness Overall: oriented to person, place and time 02/07/2017 None Full Exam - General 1994 Psychiatric mood and affect Overall: normal mood and affect 02/07/2017 None Full Exam - General 1994 Constitutional general appearance Development: well developed 01/26/2017 None Full Exam - General 1994 Constitutional general appearance Development: appears stated age 0901/26/2017 None Full Exam - General 1994 Constitutional general appearance Hygiene/Attention to Grooming: good hygiene 01/26/2017 None Full Exam - General 1994 Eyes conjunctiva /eyelids Overall: conjunctiva clear 01/26/2017 None Full Exam - General 1994 Eyes conjunctiva /eyelids Overall: cornea clear 01/26/2017 None Full Exam - General 1994 Eyes conjunctiva /eyelids Overall: eyelids normal 01/26/2017 None Full Exam - General 1994 Eyes pupils and irises Overall: pupils equal, round, reactive to light and accomodation 01/26/2017 None Full Exam - General 1994 Ears/Nose/Throat otoscopic exam Overall: external auditory canals clear 01/26/2017 None Full Exam - General 1994 Ears/Nose/Throat otoscopic exam Overall: tympanic membranes clear 01/26/2017 None Full Exam - General 1994 Ears/Nose/Throat lips/teeth/gingiva Overall: benign lips 01/26/2017 None Full Exam - General 1994 Ears/Nose/Throat lips/teeth/gingiva Overall: normal dentition 01/26/2017 None Full Exam - General 1994 Ears/Nose/Throat oral cavity/pharynx/larynx Overall: oral mucosa clear 01/26/2017 None Full Exam - General 1994 Ears/Nose/Throat oral cavity/pharynx/larynx Overall: oropharyngeal mucosa clear 01/26/2017 None Full Exam - General 1994 Ears/Nose/Throat oral cavity/pharynx/larynx Overall: hypopharynx benign 01/26/2017 None Full Exam - General 1994 Ears/Nose/Throat oral cavity/pharynx/larynx Overall: no masses 01/26/2017 None Full Exam - General 1994 Respiratory respiratory effort/rhythm Overall: no retractions 01/26/2017 None Full Exam - General 1994 Respiratory respiratory effort/rhythm Overall: normal rate 01/26/2017 None Full Exam - General 1994 Cardiovascular extremities Overall: no clubbing 01/26/2017 None Full Exam - General 1994 Cardiovascular auscultation of heart Overall: regular rate 01/26/2017 None Full Exam - General 1994 Cardiovascular auscultation of heart Overall: normal heart sounds 01/26/2017 None Full Exam - General 1994 Abdomen abdominal exam Overall: no tenderness 01/26/2017 None Full Exam - General 1994 Abdomen abdominal exam Overall: normal bowel sounds 01/26/2017 None Full Exam - General 1994 Musculoskeletal spine, ribs and pelvis Overall: spine benign 01/26/2017 None Full Exam - General 1994 Musculoskeletal spine, ribs and pelvis Overall: good posture 01/26/2017 None Full Exam - General 1994 Musculoskeletal head and neck Overall: head atraumatic 01/26/2017 None Full Exam - General 1994 Musculoskeletal head and neck Overall: cervical spine benign 01/26/2017 None Full Exam - General 1994 Neurologic deep tendon reflexes Overall: deep tendon reflexes intact 01/26/2017 None Full Exam - General 1994 Neurologic cranial nerves Overall: crainial nerves 2 - 12 grossly intact 01/26/2017 None Full Exam - General 1994 Psychiatric orientation/consciousness Overall: oriented to person, place and time 01/26/2017 None Full Exam - General 1994 Psychiatric mood and affect Overall: normal mood and affect 01/26/2017 None Full Exam - General 1994 Respiratory auscultation Lower lung field: crackles 01/26/2017 None Full Exam - General 1994 Respiratory auscultation Upper lung field: Breath sounds clear 01/26/2017 None Full Exam - General 1994 Constitutional general appearance Development: well developed 10/19/2016 None Full Exam - General 1994 Constitutional general appearance Development: appears stated age 0510/19/2016 None Full Exam - General 1994 Constitutional general appearance Hygiene/Attention to Grooming: good hygiene 10/19/2016 None Full Exam - General 1994 Eyes conjunctiva /eyelids Overall: conjunctiva clear 10/19/2016 None Full Exam - General 1994 Eyes conjunctiva /eyelids Overall: cornea clear 10/19/2016 None Full Exam - General 1994 Eyes conjunctiva /eyelids Overall: eyelids normal 10/19/2016 None Full Exam - General 1994 Eyes pupils and irises Overall: pupils equal, round, reactive to light and accomodation 10/19/2016 None Full Exam - General 1994 Ears/Nose/Throat otoscopic exam Overall: external auditory canals clear 10/19/2016 None Full Exam - General 1994 Ears/Nose/Throat otoscopic exam Overall: tympanic membranes clear 10/19/2016 None Full Exam - General 1994 Ears/Nose/Throat lips/teeth/gingiva Overall: benign lips 10/19/2016 None Full Exam - General 1994 Ears/Nose/Throat lips/teeth/gingiva Overall: normal dentition 10/19/2016 None Full Exam - General 1994 Ears/Nose/Throat oral cavity/pharynx/larynx Overall: oral mucosa clear 10/19/2016 None Full Exam - General 1994 Ears/Nose/Throat oral cavity/pharynx/larynx Overall: oropharyngeal mucosa clear 10/19/2016 None Full Exam - General 1994 Ears/Nose/Throat oral cavity/pharynx/larynx Overall: hypopharynx benign 10/19/2016 None Full Exam - General 1994 Ears/Nose/Throat oral cavity/pharynx/larynx Overall: no masses 10/19/2016 None Full Exam - General 1994 Respiratory auscultation Overall: breath sounds clear bilaterally 10/19/2016 None Full Exam - General 1994 Respiratory respiratory effort/rhythm Overall: no retractions 10/19/2016 None Full Exam - General 1994 Respiratory respiratory effort/rhythm Overall: normal rate 10/19/2016 None Full Exam - General 1994 Cardiovascular extremities Overall: no clubbing 10/19/2016 None Full Exam - General 1994 Cardiovascular auscultation of heart Overall: regular rate 10/19/2016 None Full Exam - General 1994 Cardiovascular auscultation of heart Overall: normal heart sounds 10/19/2016 None Full Exam - General 1994 Abdomen abdominal exam Overall: no tenderness 10/19/2016 None Full Exam - General 1994 Abdomen abdominal exam Overall: normal bowel sounds 10/19/2016 None Full Exam - General 1994 Musculoskeletal spine, ribs and pelvis Overall: spine benign 10/19/2016 None Full Exam - General 1994 Musculoskeletal spine, ribs and pelvis Overall: good posture 10/19/2016 None Full Exam - General 1994 Musculoskeletal head and neck Overall: head atraumatic 10/19/2016 None Full Exam - General 1994 Musculoskeletal head and neck Overall: cervical spine benign 10/19/2016 None Full Exam - General 1994 Neurologic deep tendon reflexes Overall: deep tendon reflexes intact 10/19/2016 None Full Exam - General 1994 Neurologic cranial nerves Overall: crainial nerves 2 - 12 grossly intact 10/19/2016 None Full Exam - General 1994 Psychiatric orientation/consciousness Overall: oriented to person, place and time 10/19/2016 None Full Exam - General 1994 Psychiatric mood and affect Overall: normal mood and affect 10/19/2016 None Full Exam - General 1994 Constitutional general appearance Development: well developed 09/22/2016 None Full Exam - General 1994 Constitutional general appearance Development: appears stated age 0509/22/2016 None Full Exam - General 1994 Constitutional general appearance Hygiene/Attention to Grooming: good hygiene 09/22/2016 None Full Exam - General 1994 Eyes conjunctiva /eyelids Overall: conjunctiva clear 09/22/2016 None Full Exam - General 1994 Eyes conjunctiva /eyelids Overall: cornea clear 09/22/2016 None Full Exam - General 1994 Eyes conjunctiva /eyelids Overall: eyelids normal 09/22/2016 None Full Exam - General 1994 Eyes pupils and irises Overall: pupils equal, round, reactive to light and accomodation 09/22/2016 None Full Exam - General 1994 Ears/Nose/Throat otoscopic exam Overall: external auditory canals clear 09/22/2016 None Full Exam - General 1994 Ears/Nose/Throat otoscopic exam Overall: tympanic membranes clear 09/22/2016 None Full Exam - General 1994 Ears/Nose/Throat lips/teeth/gingiva Overall: benign lips 09/22/2016 None Full Exam - General 1994 Ears/Nose/Throat lips/teeth/gingiva Overall: normal dentition 09/22/2016 None Full Exam - General 1994 Ears/Nose/Throat oral cavity/pharynx/larynx Overall: oral mucosa clear 09/22/2016 None Full Exam - General 1994 Ears/Nose/Throat oral cavity/pharynx/larynx Overall: oropharyngeal mucosa clear 09/22/2016 None Full Exam - General 1994 Ears/Nose/Throat oral cavity/pharynx/larynx Overall: hypopharynx benign 09/22/2016 None Full Exam - General 1994 Ears/Nose/Throat oral cavity/pharynx/larynx Overall: no masses 09/22/2016 None Full Exam - General 1994 Respiratory auscultation Overall: breath sounds clear bilaterally 09/22/2016 None Full Exam - General 1994 Respiratory respiratory effort/rhythm Overall: no retractions 09/22/2016 None Full Exam - General 1994 Respiratory respiratory effort/rhythm Overall: normal rate 09/22/2016 None Full Exam - General 1994 Cardiovascular extremities Overall: no clubbing 09/22/2016 None Full Exam - General 1994 Cardiovascular auscultation of heart Overall: regular rate 09/22/2016 None Full Exam - General 1994 Cardiovascular auscultation of heart Overall: normal heart sounds 09/22/2016 None Full Exam - General 1994 Abdomen abdominal exam Overall: no tenderness 09/22/2016 None Full Exam - General 1994 Abdomen abdominal exam Overall: normal bowel sounds 09/22/2016 None Full Exam - General 1994 Musculoskeletal spine, ribs and pelvis Overall: spine benign 09/22/2016 None Full Exam - General 1994 Musculoskeletal spine, ribs and pelvis Overall: good posture 09/22/2016 None Full Exam - General 1994 Musculoskeletal head and neck Overall: head atraumatic 09/22/2016 None Full Exam - General 1994 Musculoskeletal head and neck Overall: cervical spine benign 09/22/2016 None Full Exam - General 1994 Neurologic deep tendon reflexes Overall: deep tendon reflexes intact 09/22/2016 None Full Exam - General 1994 Neurologic cranial nerves Overall: crainial nerves 2 - 12 grossly intact 09/22/2016 None Full Exam - General 1994 Psychiatric orientation/consciousness Overall: oriented to person, place and time 09/22/2016 None Full Exam - General 1994 Psychiatric mood and affect Overall: normal mood and affect 09/22/2016 None Full Exam - General 1994 Constitutional general appearance Development: well developed 08/31/2016 None Full Exam - General 1994 Constitutional general appearance Development: appears stated age 0408/31/2016 None Full Exam - General 1994 Constitutional general appearance Hygiene/Attention to Grooming: good hygiene 08/31/2016 None Full Exam - General 1994 Eyes conjunctiva /eyelids Overall: conjunctiva clear 08/31/2016 None Full Exam - General 1994 Eyes conjunctiva /eyelids Overall: cornea clear 08/31/2016 None Full Exam - General 1994 Eyes conjunctiva /eyelids Overall: eyelids normal 08/31/2016 None Full Exam - General 1994 Eyes pupils and irises Overall: pupils equal, round, reactive to light and accomodation 08/31/2016 None Full Exam - General 1994 Ears/Nose/Throat otoscopic exam Overall: external auditory canals clear 08/31/2016 None Full Exam - General 1994 Ears/Nose/Throat otoscopic exam Overall: tympanic membranes clear 08/31/2016 None Full Exam - General 1994 Ears/Nose/Throat lips/teeth/gingiva Overall: benign lips 08/31/2016 None Full Exam - General 1994 Ears/Nose/Throat lips/teeth/gingiva Overall: normal dentition 08/31/2016 None Full Exam - General 1994 Ears/Nose/Throat oral cavity/pharynx/larynx Overall: oral mucosa clear 08/31/2016 None Full Exam - General 1994 Ears/Nose/Throat oral cavity/pharynx/larynx Overall: oropharyngeal mucosa clear 08/31/2016 None Full Exam - General 1994 Ears/Nose/Throat oral cavity/pharynx/larynx Overall: hypopharynx benign 08/31/2016 None Full Exam - General 1994 Ears/Nose/Throat oral cavity/pharynx/larynx Overall: no masses 08/31/2016 None Full Exam - General 1994 Respiratory auscultation Overall: breath sounds clear bilaterally 08/31/2016 None Full Exam - General 1994 Respiratory respiratory effort/rhythm Overall: no retractions 08/31/2016 None Full Exam - General 1994 Respiratory respiratory effort/rhythm Overall: normal rate 08/31/2016 None Full Exam - General 1994 Cardiovascular extremities Overall: no clubbing 08/31/2016 None Full Exam - General 1994 Cardiovascular auscultation of heart Overall: regular rate 08/31/2016 None Full Exam - General 1994 Cardiovascular auscultation of heart Overall: normal heart sounds 08/31/2016 None Full Exam - General 1994 Abdomen abdominal exam Overall: no tenderness 08/31/2016 None Full Exam - General 1994 Abdomen abdominal exam Overall: normal bowel sounds 08/31/2016 None Full Exam - General 1994 Musculoskeletal spine, ribs and pelvis Overall: spine benign 08/31/2016 None Full Exam - General 1994 Musculoskeletal spine, ribs and pelvis Overall: good posture 08/31/2016 None Full Exam - General 1994 Musculoskeletal head and neck Overall: head atraumatic 08/31/2016 None Full Exam - General 1994 Musculoskeletal head and neck Overall: cervical spine benign 08/31/2016 None Full Exam - General 1994 Neurologic deep tendon reflexes Overall: deep tendon reflexes intact 08/31/2016 None Full Exam - General 1994 Neurologic cranial nerves Overall: crainial nerves 2 - 12 grossly intact 08/31/2016 None Full Exam - General 1994 Psychiatric orientation/consciousness Overall: oriented to person, place and time 08/31/2016 None Full Exam - General 1994 Psychiatric mood and affect Overall: normal mood and affect 08/31/2016 None Full Exam - Orthopedics Constitutional general appearance Overall: well nourished 08/12/2016 None Full Exam - Orthopedics Constitutional general appearance Overall: well developed 08/12/2016 None Full Exam - Orthopedics Constitutional general appearance Overall: in no acute distress 08/12/2016 None Full Exam - Orthopedics Constitutional general appearance Overall: normal body habitus 08/12/2016 None Full Exam - Orthopedics Constitutional general appearance Overall: no deformities 08/12/2016 None Full Exam - Orthopedics Constitutional general appearance Overall: no assistive devices 08/12/2016 None Full Exam - Orthopedics Constitutional general appearance Overall: well groomed 08/12/2016 None Full Exam - Orthopedics Constitutional general appearance Overall: atraumatic 08/12/2016 None Full Exam - Orthopedics Constitutional general appearance Overall: cooperative 08/12/2016 None Full Exam - Orthopedics Constitutional general appearance Overall: healthy appearance 08/12/2016 None Full Exam - Orthopedics Constitutional general appearance Overall: pleasant 08/12/2016 None Full Exam - Orthopedics Constitutional general appearance Overall: relaxed 08/12/2016 None Full Exam - Orthopedics Psychiatric orientation/consciousness Overall: oriented to person, place and time 08/12/2016 None Full Exam - Orthopedics MS: spine/rib/pelvis insp & palp - S/R/P Sacroiliac palpation: left sacroiliac joint tenderness 08/12/2016 None Full Exam - Orthopedics MS: spine/rib/pelvis insp & palp - S/R/P Lumbar spine inspection: normal lumbar spine alignment 08/12/2016 None Full Exam - Orthopedics Respiratory auscultation Overall: breath sounds clear bilaterally 08/12/2016 None Full Exam - Orthopedics Respiratory respiratory effort/rhythm Overall: no retractions 08/12/2016 None Full Exam - Orthopedics Respiratory respiratory effort/rhythm Overall: normal rate 08/12/2016 None Full Exam - Orthopedics Respiratory respiratory effort/rhythm Overall: normal , symmetric chest expansion 08/12/2016 None Full Exam - General 1994 Constitutional general appearance Development: well developed 07/28/2016 None Full Exam - General 1994 Constitutional general appearance Development: appears stated age 0307/28/2016 None Full Exam - General 1994 Constitutional general appearance Hygiene/Attention to Grooming: good hygiene 07/28/2016 None Full Exam - General 1994 Eyes conjunctiva /eyelids Overall: conjunctiva clear 07/28/2016 None Full Exam - General 1994 Eyes conjunctiva /eyelids Overall: cornea clear 07/28/2016 None Full Exam - General 1994 Eyes conjunctiva /eyelids Overall: eyelids normal 07/28/2016 None Full Exam - General 1994 Eyes pupils and irises Overall: pupils equal, round, reactive to light and accomodation 07/28/2016 None Full Exam - General 1994 Ears/Nose/Throat otoscopic exam Overall: external auditory canals clear 07/28/2016 None Full Exam - General 1994 Ears/Nose/Throat otoscopic exam Overall: tympanic membranes clear 07/28/2016 None Full Exam - General 1994 Ears/Nose/Throat lips/teeth/gingiva Overall: benign lips 07/28/2016 None Full Exam - General 1994 Ears/Nose/Throat lips/teeth/gingiva Overall: normal dentition 07/28/2016 None Full Exam - General 1994 Ears/Nose/Throat oral cavity/pharynx/larynx Overall: oral mucosa clear 07/28/2016 None Full Exam - General 1995 Ears/Nose/Throat oral cavity/pharynx/larynx Overall: oropharyngeal mucosa clear 07/28/2016 None Full Exam - General 1994 Ears/Nose/Throat oral cavity/pharynx/larynx Overall: hypopharynx benign 07/28/2016 None Full Exam - General 1994 Ears/Nose/Throat oral cavity/pharynx/larynx Overall: no masses 07/28/2016 None Full Exam - General 1994 Respiratory auscultation Overall: breath sounds clear bilaterally 07/28/2016 None Full Exam - General 1994 Respiratory respiratory effort/rhythm Overall: no retractions 07/28/2016 None Full Exam - General 1994 Respiratory respiratory effort/rhythm Overall: normal rate 07/28/2016 None Full Exam - General 1994 Cardiovascular extremities Overall: no clubbing 07/28/2016 None Full Exam - General 1994 Cardiovascular auscultation of heart Overall: regular rate 07/28/2016 None Full Exam - General 1994 Cardiovascular auscultation of heart Overall: normal heart sounds 07/28/2016 None Full Exam - General 1994 Abdomen abdominal exam Overall: no tenderness 07/28/2016 None Full Exam - General 1994 Abdomen abdominal exam Overall: normal bowel sounds 07/28/2016 None Full Exam - General 1994 Musculoskeletal spine, ribs and pelvis Overall: spine benign 07/28/2016 None Full Exam - General 1994 Musculoskeletal spine, ribs and pelvis Overall: good posture 07/28/2016 None Full Exam - General 1994 Musculoskeletal head and neck Overall: head atraumatic 07/28/2016 None Full Exam - General 1994 Musculoskeletal head and neck Overall: cervical spine benign 07/28/2016 None Full Exam - General 1994 Neurologic deep tendon reflexes Overall: deep tendon reflexes intact 07/28/2016 None Full Exam - General 1994 Neurologic cranial nerves Overall: crainial nerves 2 - 12 grossly intact 07/28/2016 None Full Exam - General 1994 Psychiatric orientation/consciousness Overall: oriented to person, place and time 07/28/2016 None Full Exam - General 1994 Psychiatric mood and affect Overall: normal mood and affect 07/28/2016 None Full Exam - General 1994 Constitutional general appearance Development: well developed 01/28/2016 None Full Exam - General 1994 Constitutional general appearance Development: appears stated age 0901/28/2016 None Full Exam - General 1994 Constitutional general appearance Hygiene/Attention to Grooming: good hygiene 01/28/2016 None Full Exam - General 1994 Eyes conjunctiva /eyelids Overall: conjunctiva clear 01/28/2016 None Full Exam - General 1994 Eyes conjunctiva /eyelids Overall: cornea clear 01/28/2016 None Full Exam - General 1994 Eyes conjunctiva /eyelids Overall: eyelids normal 01/28/2016 None Full Exam - General 1994 Eyes pupils and irises Overall: pupils equal, round, reactive to light and accomodation 01/28/2016 None Full Exam - General 1994 Ears/Nose/Throat otoscopic exam Overall: external auditory canals clear 01/28/2016 None Full Exam - General 1994 Ears/Nose/Throat otoscopic exam Overall: tympanic membranes clear 01/28/2016 None Full Exam - General 1994 Ears/Nose/Throat lips/teeth/gingiva Overall: benign lips 01/28/2016 None Full Exam - General 1994 Ears/Nose/Throat lips/teeth/gingiva Overall: normal dentition 01/28/2016 None Full Exam - General 1994 Ears/Nose/Throat oral cavity/pharynx/larynx Overall: oral mucosa clear 01/28/2016 None Full Exam - General 1994 Ears/Nose/Throat oral cavity/pharynx/larynx Overall: oropharyngeal mucosa clear 01/28/2016 None Full Exam - General 1994 Ears/Nose/Throat oral cavity/pharynx/larynx Overall: hypopharynx benign 01/28/2016 None Full Exam - General 1994 Ears/Nose/Throat oral cavity/pharynx/larynx Overall: no masses 01/28/2016 None Full Exam - General 1994 Respiratory auscultation Overall: breath sounds clear bilaterally 01/28/2016 None Full Exam - General 1994 Respiratory respiratory effort/rhythm Overall: no retractions 01/28/2016 None Full Exam - General 1994 Respiratory respiratory effort/rhythm Overall: normal rate 01/28/2016 None Full Exam - General 1994 Cardiovascular extremities Overall: no clubbing 01/28/2016 None Full Exam - General 1994 Cardiovascular auscultation of heart Overall: regular rate 01/28/2016 None Full Exam - General 1994 Cardiovascular auscultation of heart Overall: normal heart sounds 01/28/2016 None Full Exam - General 1994 Abdomen abdominal exam Overall: no tenderness 01/28/2016 None Full Exam - General 1994 Abdomen abdominal exam Overall: normal bowel sounds 01/28/2016 None Full Exam - General 1994 Lymphatic neck nodes Overall: anterior cervical chain benign 01/28/2016 None Full Exam - General 1994 Lymphatic neck nodes Overall: posterior cervical chain benign 01/28/2016 None Full Exam - General 1994 Musculoskeletal spine, ribs and pelvis Overall: spine benign 01/28/2016 None Full Exam - General 1994 Musculoskeletal spine, ribs and pelvis Overall: good posture 01/28/2016 None Full Exam - General 1994 Musculoskeletal spine, ribs and pelvis Sacroiliac joints: tender right sacroiliac joint 01/28/2016 None Full Exam - General 1994 Musculoskeletal head and neck Overall: head atraumatic 01/28/2016 None Full Exam - General 1994 Musculoskeletal head and neck Overall: cervical spine benign 01/28/2016 None Full Exam - General 1994 Neurologic deep tendon reflexes Overall: deep tendon reflexes intact 01/28/2016 None Full Exam - General 1994 Neurologic cranial nerves Overall: crainial nerves 2 - 12 grossly intact 01/28/2016 None Full Exam - General 1994 Psychiatric orientation/consciousness Overall: oriented to person, place and time 01/28/2016 None Full Exam - General 1994 Psychiatric mood and affect Overall: normal mood and affect 01/28/2016 None Full Exam - General 1994 Integument inspection of skin Pigmentation: erythematous 01/28/2016 LEFT ANKLE Full Exam - General 1994 Constitutional general appearance Development: well developed 07/29/2015 None Full Exam - General 1994 Constitutional general appearance Development: appears stated age 0307/29/2015 None Full Exam - General 1994 Constitutional general appearance Hygiene/Attention to Grooming: good hygiene 07/29/2015 None Full Exam - General 1994 Eyes conjunctiva /eyelids Overall: conjunctiva clear 07/29/2015 None Full Exam - General 1994 Eyes conjunctiva /eyelids Overall: cornea clear 07/29/2015 None Full Exam - General 1994 Eyes conjunctiva /eyelids Overall: eyelids normal 07/29/2015 None Full Exam - General 1994 Eyes pupils and irises Overall: pupils equal, round, reactive to light and accomodation 07/29/2015 None Full Exam - General 1994 Ears/Nose/Throat otoscopic exam Overall: external auditory canals clear 07/29/2015 None Full Exam - General 1994 Ears/Nose/Throat otoscopic exam Overall: tympanic membranes clear 07/29/2015 None Full Exam - General 1994 Ears/Nose/Throat lips/teeth/gingiva Overall: benign lips 07/29/2015 None Full Exam - General 1994 Ears/Nose/Throat lips/teeth/gingiva Overall: normal dentition 07/29/2015 None Full Exam - General 1994 Ears/Nose/Throat oral cavity/pharynx/larynx Overall: oral mucosa clear 07/29/2015 None Full Exam - General 1994 Ears/Nose/Throat oral cavity/pharynx/larynx Overall: oropharyngeal mucosa clear 07/29/2015 None Full Exam - General 1994 Ears/Nose/Throat oral cavity/pharynx/larynx Overall: hypopharynx benign 07/29/2015 None Full Exam - General 1994 Ears/Nose/Throat oral cavity/pharynx/larynx Overall: no masses 07/29/2015 None Full Exam - General 1994 Respiratory auscultation Overall: breath sounds clear bilaterally 07/29/2015 None Full Exam - General 1994 Respiratory respiratory effort/rhythm Overall: no retractions 07/29/2015 None Full Exam - General 1994 Respiratory respiratory effort/rhythm Overall: normal rate 07/29/2015 None Full Exam - General 1994 Cardiovascular extremities Overall: no clubbing 07/29/2015 None Full Exam - General 1994 Cardiovascular auscultation of heart Overall: regular rate 07/29/2015 None Full Exam - General 1994 Cardiovascular auscultation of heart Overall: normal heart sounds 07/29/2015 None Full Exam - General 1994 Abdomen abdominal exam Overall: no tenderness 07/29/2015 None Full Exam - General 1994 Abdomen abdominal exam Overall: normal bowel sounds 07/29/2015 None Full Exam - General 1994 Lymphatic neck nodes Overall: anterior cervical chain benign 07/29/2015 None Full Exam - General 1994 Lymphatic neck nodes Overall: posterior cervical chain benign 07/29/2015 None Full Exam - General 1994 Musculoskeletal spine, ribs and pelvis Overall: spine benign 07/29/2015 None Full Exam - General 1994 Musculoskeletal spine, ribs and pelvis Overall: good posture 07/29/2015 None Full Exam - General 1994 Musculoskeletal spine, ribs and pelvis Sacroiliac joints: tender right sacroiliac joint 07/29/2015 None Full Exam - General 1994 Musculoskeletal head and neck Overall: head atraumatic 07/29/2015 None Full Exam - General 1994 Musculoskeletal head and neck Overall: cervical spine benign 07/29/2015 None Full Exam - General 1994 Integument inspection of skin Overall: few scattered moles, no gross abnormalities 07/29/2015 None Full Exam - General 1994 Neurologic deep tendon reflexes Overall: deep tendon reflexes intact 07/29/2015 None Full Exam - General 1994 Neurologic cranial nerves Overall: crainial nerves 2 - 12 grossly intact 07/29/2015 None Full Exam - General 1994 Psychiatric orientation/consciousness Overall: oriented to person, place and time 07/29/2015 None Full Exam - General 1994 Psychiatric mood and affect Overall: normal mood and affect 07/29/2015 None Full Exam - General 1994 Musculoskeletal digits and nails Nails: thickened 07/29/2015 great toenails lateral and medially Full Exam - General 1994 Constitutional general appearance Development: well developed 03/31/2015 None Full Exam - General 1994 Constitutional general appearance Development: appears stated age 1103/31/2015 None Full Exam - General 1994 Constitutional general appearance Hygiene/Attention to Grooming: good hygiene 03/31/2015 None Full Exam - General 1994 Eyes conjunctiva /eyelids Overall: conjunctiva clear 03/31/2015 None Full Exam - General 1994 Eyes conjunctiva /eyelids Overall: cornea clear 03/31/2015 None Full Exam - General 1994 Eyes conjunctiva /eyelids Overall: eyelids normal 03/31/2015 None Full Exam - General 1994 Eyes pupils and irises Overall: pupils equal, round, reactive to light and accomodation 03/31/2015 None Full Exam - General 1994 Ears/Nose/Throat otoscopic exam Overall: external auditory canals clear 03/31/2015 None Full Exam - General 1994 Ears/Nose/Throat otoscopic exam Overall: tympanic membranes clear 03/31/2015 None Full Exam - General 1994 Ears/Nose/Throat lips/teeth/gingiva Overall: benign lips 03/31/2015 None Full Exam - General 1994 Ears/Nose/Throat lips/teeth/gingiva Overall: normal dentition 03/31/2015 None Full Exam - General 1994 Ears/Nose/Throat oral cavity/pharynx/larynx Overall: oral mucosa clear 03/31/2015 None Full Exam - General 1994 Ears/Nose/Throat oral cavity/pharynx/larynx Overall: oropharyngeal mucosa clear 03/31/2015 None Full Exam - General 1994 Ears/Nose/Throat oral cavity/pharynx/larynx Overall: hypopharynx benign 03/31/2015 None Full Exam - General 1994 Ears/Nose/Throat oral cavity/pharynx/larynx Overall: no masses 03/31/2015 None Full Exam - General 1994 Respiratory auscultation Overall: breath sounds clear bilaterally 03/31/2015 None Full Exam - General 1994 Respiratory respiratory effort/rhythm Overall: no retractions 03/31/2015 None Full Exam - General 1994 Respiratory respiratory effort/rhythm Overall: normal rate 03/31/2015 None Full Exam - General 1994 Cardiovascular extremities Overall: no clubbing 03/31/2015 None Full Exam - General 1994 Cardiovascular auscultation of heart Overall: regular rate 03/31/2015 None Full Exam - General 1994 Cardiovascular auscultation of heart Overall: normal heart sounds 03/31/2015 None Full Exam - General 1994 Abdomen abdominal exam Overall: no tenderness 03/31/2015 None Full Exam - General 1994 Abdomen abdominal exam Overall: normal bowel sounds 03/31/2015 None Full Exam - General 1994 Lymphatic neck nodes Overall: anterior cervical chain benign 03/31/2015 None Full Exam - General 1994 Lymphatic neck nodes Overall: posterior cervical chain benign 03/31/2015 None Full Exam - General 1994 Musculoskeletal spine, ribs and pelvis Overall: spine benign 03/31/2015 None Full Exam - General 1994 Musculoskeletal spine, ribs and pelvis Overall: good posture 03/31/2015 None Full Exam - General 1994 Musculoskeletal spine, ribs and pelvis Sacroiliac joints: tender right sacroiliac joint 03/31/2015 None Full Exam - General 1994 Musculoskeletal head and neck Overall: head atraumatic 03/31/2015 None Full Exam - General 1994 Musculoskeletal head and neck Overall: cervical spine benign 03/31/2015 None Full Exam - General 1994 Neurologic deep tendon reflexes Overall: deep tendon reflexes intact 03/31/2015 None Full Exam - General 1994 Neurologic cranial nerves Overall: crainial nerves 2 - 12 grossly intact 03/31/2015 None Full Exam - General 1994 Psychiatric orientation/consciousness Overall: oriented to person, place and time 03/31/2015 None Full Exam - General 1994 Psychiatric mood and affect Overall: normal mood and affect 03/31/2015 None Full Exam - General 1994 Integument inspection of skin Consistency: thick 03/31/2015 left congregational and left nasal bridge - actinic keratosis Full Exam - General 1994 Constitutional general appearance Development: well developed 12/23/2014 None Full Exam - General 1994 Constitutional general appearance Development: appears stated age 0812/23/2014 None Full Exam - General 1994 Constitutional general appearance Hygiene/Attention to Grooming: good hygiene 12/23/2014 None Full Exam - General 1994 Eyes conjunctiva /eyelids Overall: conjunctiva clear 12/23/2014 None Full Exam - General 1994 Eyes conjunctiva /eyelids Overall: cornea clear 12/23/2014 None Full Exam - General 1994 Eyes conjunctiva /eyelids Overall: eyelids normal 12/23/2014 None Full Exam - General 1994 Eyes pupils and irises Overall: pupils equal, round, reactive to light and accomodation 12/23/2014 None Full Exam - General 1994 Ears/Nose/Throat otoscopic exam Overall: external auditory canals clear 12/23/2014 None Full Exam - General 1994 Ears/Nose/Throat otoscopic exam Overall: tympanic membranes clear 12/23/2014 None Full Exam - General 1994 Ears/Nose/Throat lips/teeth/gingiva Overall: benign lips 12/23/2014 None Full Exam - General 1994 Ears/Nose/Throat lips/teeth/gingiva Overall: normal dentition 12/23/2014 None Full Exam - General 1994 Ears/Nose/Throat oral cavity/pharynx/larynx Overall: oral mucosa clear 12/23/2014 None Full Exam - General 1994 Ears/Nose/Throat oral cavity/pharynx/larynx Overall: oropharyngeal mucosa clear 12/23/2014 None Full Exam - General 1994 Ears/Nose/Throat oral cavity/pharynx/larynx Overall: hypopharynx benign 12/23/2014 None Full Exam - General 1994 Ears/Nose/Throat oral cavity/pharynx/larynx Overall: no masses 12/23/2014 None Full Exam - General 1994 Respiratory auscultation Overall: breath sounds clear bilaterally 12/23/2014 None Full Exam - General 1994 Respiratory respiratory effort/rhythm Overall: no retractions 12/23/2014 None Full Exam - General 1994 Respiratory respiratory effort/rhythm Overall: normal rate 12/23/2014 None Full Exam - General 1994 Cardiovascular extremities Overall: no clubbing 12/23/2014 None Full Exam - General 1994 Cardiovascular auscultation of heart Overall: regular rate 12/23/2014 None Full Exam - General 1994 Cardiovascular auscultation of heart Overall: normal heart sounds 12/23/2014 None Full Exam - General 1994 Abdomen abdominal exam Overall: no tenderness 12/23/2014 None Full Exam - General 1994 Abdomen abdominal exam Overall: normal bowel sounds 12/23/2014 None Full Exam - General 1994 Lymphatic neck nodes Overall: anterior cervical chain benign 12/23/2014 None Full Exam - General 1994 Lymphatic neck nodes Overall: posterior cervical chain benign 12/23/2014 None Full Exam - General 1994 Musculoskeletal spine, ribs and pelvis Overall: spine benign 12/23/2014 None Full Exam - General 1994 Musculoskeletal spine, ribs and pelvis Overall: good posture 12/23/2014 None Full Exam - General 1994 Musculoskeletal head and neck Overall: head atraumatic 12/23/2014 None Full Exam - General 1994 Musculoskeletal head and neck Overall: cervical spine benign 12/23/2014 None Full Exam - General 1994 Integument inspection of skin Overall: few scattered moles, no gross abnormalities 12/23/2014 None Full Exam - General 1994 Neurologic deep tendon reflexes Overall: deep tendon reflexes intact 12/23/2014 None Full Exam - General 1994 Neurologic cranial nerves Overall: crainial nerves 2 - 12 grossly intact 12/23/2014 None Full Exam - General 1994 Psychiatric orientation/consciousness Overall: oriented to person, place and time 12/23/2014 None Full Exam - General 1994 Psychiatric mood and affect Overall: normal mood and affect 12/23/2014 None Full Exam - General 1994 Musculoskeletal spine, ribs and pelvis Sacroiliac joints: tender right sacroiliac joint 12/23/2014 None Procedures Procedure Codes Date PPPS, SUBSEQ VISIT CPT -4: G0439 05/05/2018 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 AGENT 3-[address]: 415583207 CPT-4: G0436 04/11/2017 PNEUMOCOCCAL VACC [address]: 87295103 CPT-4: 15685 02/09/2017 FLU VACC PRSV FREE INC ANTIG CPT-4: 98719 02/09/2017 ADMIN INFLUENZA VIRUS VAC CPT-4: G0008 02/09/2017 ADMIN PNEUMOCOCCAL VACCINE SNOMED CT: 50426636 CPT-4: G0009 02/09/2017 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 AGENT 3-[address]: 281848415 CPT-4: G0436 02/07/2017 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 AGENT 3-[address]: 267227917 CPT-4: G0436 10/19/2016 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 AGENT 3-[address]: 221333436 CPT-4: G0436 08/31/2016 TRIAMCINOLONE ACET INJ NOS CPT-4: J3301 08/12/2016 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 AGENT 3-[address]: 948978796 CPT-4: G0436 07/28/2016 ADMIN INFLUENZA VIRUS VAC CPT-4: G0008 01/28/2016 FLU VACC 4 JULISA 3 YRS PLUS IM SNOMED CT: 44879419 CPT-4: 95755 01/28/2016 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 AGENT 3-[address]: 820983977 CPT-4: G0436 07/29/2015 Vital Signs Date Vital 05/05/2018 Blood Pressure 1: 130/64 Code : 8480-6 BMI: 25.1 Code : 94231-4 Heart Rate 1 : 72 bpm Height: 5'4" SpO2: 97% Weight: 146 lbs 04/03/2018 Blood Pressure 1: 142/80 Code : 8480-6 BMI: 25.2 Code : 87161-7 Heart Rate 1 : 99 bpm Height: 5'4" SpO2: 97% Weight: 147 lbs 03/06/2018 Blood Pressure 1: 140/80 Code : 8480-6 BMI: 26.1 Code : 21338-3 Heart Rate 1 : 71 bpm Height: 5'4" SpO2: 98% Weight: 152 lbs 02/22/2018 Blood Pressure 1: 146/68 Code : 8480-6 BMI: 26.6 Code : 97676-1 Heart Rate 1 : 88 bpm Height: 5'4" SpO2: 97% Weight: 155 lbs 12/13/2017 Blood Pressure 1: 132/68 Code : 8480-6 BMI: 26.6 Code : 75619-7 Heart Rate 1 : 72 bpm Height: 5'4" SpO2: 94% Weight: 154 lbs 14 oz 11/29/2017 Blood Pressure 1: 130/64 Code : 8480-6 BMI: 26.1 Code : 97162-4 Heart Rate 1 : 81 bpm Height: 5'4" SpO2: 94% Weight: 152 lbs 10/27/2017 Blood Pressure 1: 120/62 Code : 8480-6 BMI: 25.9 Code : 49562-0 Heart Rate 1 : 70 bpm Height: 5'4" SpO2: 96% Weight: 151 lbs 07/26/2017 Blood Pressure 1: 146/70 Code : 8480-6 BMI: 26.3 Code : 27515-5 Heart Rate 1 : 69 bpm Height: 5'4" SpO2: 98% Weight: 153 lbs 05/26/2017 Blood Pressure 1: 142/76 Code : 8480-6 BMI: 26.4 Code : 51179-5 Heart Rate 1 : 59 bpm Height: 5'4" SpO2: 99% Weight: 154 lbs 04/11/2017 Blood Pressure 1: 134/64 Code : 8480-6 BMI: 26.6 Code : 41719-7 Heart Rate 1 : 65 bpm Height: 5'4" SpO2: 98% Weight: 155 lbs 02/07/2017 Blood Pressure 1: 120/72 Code : 8480-6 Heart Rate 1: 72 bpm Height: 5'4" SpO2: 96% Weight: 01/26/2017 Blood Pressure 1: 146/68 Code : 8480-6 BMI: 26.4 Code : 14298-6 Heart Rate 1 : 96 bpm Height: 5'4" SpO2: 97% Weight: 154 lbs 10/19/2016 Blood Pressure 1: 144/76 Code : 8480-6 BMI: 25.8 Code : 34719-7 Heart Rate 1 : 68 bpm Height: 5'4" SpO2: 96% Weight: 150 lbs 8 oz 09/22/2016 Blood Pressure 1: 122/80 Code : 8480-6 BMI: 26.1 Code : 78988-7 Heart Rate 1 : 111 bpm Height: 5'4" SpO2: 97% Weight: 152 lbs 08/31/2016 Blood Pressure 1: 152/82 Code : 8480-6 BMI: 27.1 Code : 59412-7 Heart Rate 1 : 118 bpm Height: 5'4" SpO2: 96% Weight: 158 lbs 08/12/2016 Blood Pressure 1: 146/78 Code : 8480-6 BMI: 26.9 Code : 69995-2 Heart Rate 1 : 68 bpm Height: 5'4" SpO2: 97% Weight: 157 lbs 07/28/2016 Blood Pressure 1: 128/64 Code : 8480-6 BMI: 27.1 Code : 75894-7 Heart Rate 1 : 63 bpm Height: 5'4" SpO2: 97% Weight: 158 lbs 01/28/2016 Blood Pressure 1: 130/70 Code : 8480-6 BMI: 27.3 Code : 40935-0 Heart Rate 1 : 60 bpm Height: 5'4" SpO2: 95% Weight: 159 lbs 07/29/2015 Blood Pressure 1: 136/80 Code : 8480-6 BMI: 28.1 Code : 96199-2 Heart Rate 1 : 68 bpm Height: 5'4" SpO2: 96% Weight: 163 lbs 8 oz 03/31/2015 Blood Pressure 1: 138/88 Code : 8480-6 BMI: 27.5 Code : 68538-8 Heart Rate 1 : 72 bpm Height: 5'4" Weight: 160 lbs 12/23/2014 Blood Pressure 1: 138/68 Code : 8480-6 BMI: 27.1 Code : 55780-2 Heart Rate 1 : 63 bpm Height: 5'4" SpO2: 94% Weight: 158 lbs Functional Status No Functional Status data History of Present Illness Symptom Name Status Result Effective Date Notes Alcohol Use does not drink any alcohol 05/05/2018 None Depression (last 6 months) almost never 05/05/2018 None Depression or Hopelessness almost never 05/05/2018 None Describe Your Health fair 05/05/2018 None Exercise Habits does not exercise 05/05/2018 None Handling Stress usually agapito effectively 05/05/2018 None Interaction with Friends yes 05/05/2018 None Interests & Pleasure most of the time 05/05/2018 None Life Satisfaction very satisfied 05/05/2018 None Motor Vehicle Safety always fastens seat belt: y 05/05/2018 None Motor Vehicle Safety drives after drinking: n 05/05/2018 None Motor Vehicle Safety rides with someone who has been drinking: n 05/05/2018 None Smoking and Tobacco Use cigarette smoker 05/05/2018 None Social & Emotional Support always 05/05/2018 None Stress some of the time 05/05/2018 None Sun Exposure protects skin when outdoors : y 05/05/2018 None Aspirin Use no 2017 None Blood Glucose (self reported) don't know 05/05/2018 None Blood Pressure (self reported) diagnosed with hypertension 05/05/2018 None Cholesterol (self reported) don't know 05/05/2018 None Hemaglobin A-1C (self reported) don't know 05/05/2018 None Hours of Sleep 5 None Nutrition servings of fried food / high fat foods per day: 1 05/05/2018 None Nutrition servings of vegetables / fruit per day: 3 05/05/2018 None Nutrition servings of high fiber / whole grain per day: 1 05/05/2018 None hypertension Quality primary hypertension 04/03/2018 None hypertension Onset and Resolution ongoing 04/03/2018 None hypertension Quality chronic 04/03/2018 None hypertension Onset of Symptom during adulthood 04/03/2018 None arrhythmia Quality chronic 04/03/2018 None arrhythmia Quality irregular beats 04/03/2018 (atrial fibrillation) hypertension Alleviating Factors medication 04/03/2018 None arrhythmia Alleviating Factors medication 04/03/2018 None hypertension Blood Pressure Values patient checking blood pressure at home - did not bring in readings 04/03/2018 None hypertension Quality intermittent 04/03/2018 None hypertension Pertinent Findings Denies dizziness 04/03/2018 None hypertension Pertinent Findings dyspnea 04/03/2018 after walking up steps- goes away when she sits down hypertension Pertinent Findings Denies edema 04/03/2018 None Hospital Follow Up _ Other: afib, GI bleed 03/06/2018 None Hospital Follow Up Quality acute 03/06/2018 None Hospital Follow Up Quality improving 03/06/2018 None Hospital Follow Up Pertinent Findings Other: fatigue, weakness 03/06/2018 None back pain Location in the left lower back area 02/22/2018 None back pain Location in the right lower back area 02/22/2018 None back pain Quality aching 02/22/2018 None back pain Quality sharp 02/22/2018 None back pain Quality intermittent 02/22/2018 None back pain Onset and Resolution sudden in onset 02/22/2018 None back pain Onset of Symptom 5 days ago 02/22/2018 None back pain Frequency of Episodes daily 02/22/2018 None back pain Pertinent Findings sleep disturbance 02/22/2018 None diarrhea Quality watery 12/13/2017 None diarrhea Onset and Resolution sudden in onset 12/13/2017 None diarrhea Frequency of Episodes hourly 12/13/2017 None diarrhea Frequency of Episodes daily 12/13/2017 None diarrhea Length of Episodes 2 weeks 12/13/2017 None diarrhea Timing of Episodes no specific time 12/13/2017 None diarrhea Pertinent Findings Denies fecal urgency 12/13/2017 None diarrhea Quality improving 12/13/2017 None diarrhea Quality intermittent 12/13/2017 None diarrhea Onset and Resolution sudden in onset 11/29/2017 None diarrhea Frequency of Episodes hourly 11/29/2017 None diarrhea Frequency of Episodes daily 11/29/2017 None diarrhea Length of Episodes 2 weeks 11/29/2017 None diarrhea Timing of Episodes no specific time 11/29/2017 None diarrhea Pertinent Findings fecal urgency 11/29/2017 None diarrhea Quality stable 11/29/2017 None diarrhea Onset and Resolution resolved 11/29/2017 None diarrhea Quality constant 10/27/2017 None diarrhea Quality watery 10/27/2017 None diarrhea Onset and Resolution sudden in onset 10/27/2017 None diarrhea Onset of Symptom 2 weeks ago 10/27/2017 None diarrhea Frequency of Episodes hourly 10/27/2017 None diarrhea Frequency of Episodes daily 10/27/2017 None diarrhea Length of Episodes 2 weeks 10/27/2017 None diarrhea Timing of Episodes no specific time 10/27/2017 None diarrhea Pertinent Findings fecal urgency 10/27/2017 None hypertension Quality primary hypertension 07/26/2017 None hypertension Onset and Resolution ongoing 07/26/2017 None hypertension Onset of Symptom during adulthood 07/26/2017 None hypertension Blood Pressure Values pt checking blood pressure - see scanned document 07/26/2017 None hypertension Alleviating Factors medication 07/26/2017 None hypertension Pertinent Findings decreased energy 07/26/2017 None hypertension Pertinent Findings Denies dizziness 07/26/2017 None hypertension Pertinent Findings dyspnea 07/26/2017 None hypertension Pertinent Findings edema 07/26/2017 in both ankles gastroesophageal reflux Quality chronic 07/26/2017 None gastroesophageal reflux Quality worsening 07/26/2017 None gastroesophageal reflux Onset and Resolution ongoing 07/26/2017 None gastroesophageal reflux Pertinent Findings Denies cough 07/26/2017 None gastroesophageal reflux Pertinent Findings nausea 07/26/2017 None gastroesophageal reflux Pertinent Findings heartburn 07/26/2017 None hypertension Quality primary hypertension 05/26/2017 None hypertension Onset and Resolution ongoing 05/26/2017 None hypertension Onset of Symptom during adulthood 05/26/2017 None hypertension Blood Pressure Values pt checking blood pressure - see scanned document 05/26/2017 None hypertension Alleviating Factors medication 05/26/2017 None hypertension Pertinent Findings decreased energy 05/26/2017 None hypertension Pertinent Findings Denies dizziness 05/26/2017 None hypertension Pertinent Findings dyspnea 05/26/2017 None hypertension Pertinent Findings edema 05/26/2017 in both ankles back pain Location lumbar-sacral spine 05/26/2017 None back pain Quality aching 05/26/2017 None back pain Quality intermittent 05/26/2017 None back pain Onset and Resolution ongoing 05/26/2017 None back pain Onset of Symptom years ago 05/26/2017 None back pain Frequency of Episodes daily 05/26/2017 None back pain Alleviating Factors rest 05/26/2017 None back pain Alleviating Factors position change 05/26/2017 None back pain Exacerbating Factors activity 05/26/2017 None back pain Exacerbating Factors position change 05/26/2017 None gait abnormality Quality improving 05/26/2017 None gait abnormality Quality unsteady 05/26/2017 None gait abnormality Onset and Resolution sudden in onset 05/26/2017 None gait abnormality Onset of Symptom 8 months ago 05/26/2017 None gait abnormality Frequency of Episodes daily 05/26/2017 None gait abnormality Alleviating Factors physical therapy 05/26/2017 None hypertension Quality primary hypertension 04/11/2017 None hypertension Onset and Resolution ongoing 04/11/2017 None hypertension Onset of Symptom during adulthood 04/11/2017 None hypertension Blood Pressure Values pt checking blood pressure - see scanned document 04/11/2017 None hypertension Alleviating Factors medication 04/11/2017 None hypertension Pertinent Findings decreased energy 04/11/2017 None hypertension Pertinent Findings Denies dizziness 04/11/2017 None hypertension Pertinent Findings dyspnea 04/11/2017 None hypertension Pertinent Findings edema 04/11/2017 in both ankles back pain Location lumbar-sacral spine 04/11/2017 None back pain Quality aching 04/11/2017 None back pain Onset and Resolution ongoing 04/11/2017 None back pain Onset of Symptom years ago 04/11/2017 None back pain Frequency of Episodes daily 04/11/2017 None gait abnormality Quality unsteady 04/11/2017 None gait abnormality Onset and Resolution sudden in onset 04/11/2017 None gait abnormality Frequency of Episodes daily 04/11/2017 None gait abnormality Quality improving 04/11/2017 None gait abnormality Onset of Symptom 8 months ago 04/11/2017 None back pain Quality intermittent 04/11/2017 None back pain Alleviating Factors rest 04/11/2017 None back pain Alleviating Factors position change 04/11/2017 None back pain Exacerbating Factors position change 04/11/2017 None back pain Exacerbating Factors activity 04/11/2017 None gait abnormality Alleviating Factors physical therapy 04/11/2017 None vaccination against influenza Location [id number]-[id number] 02/09/2017 None abnormal test results Detailed Test Result(s) MRI et CXR 02/07/2017 None abnormal test results Type of Test(s) MRI 02/07/2017 brain abnormal test results Type of Test(s) chest x-ray 02/07/2017 None hypertension Quality primary hypertension 01/26/2017 None hypertension Onset and Resolution ongoing 01/26/2017 None hypertension Onset of Symptom during adulthood 01/26/2017 None hypertension Blood Pressure Values pt checking blood pressure - see scanned document 01/26/2017 None hypertension Alleviating Factors medication 01/26/2017 None hypertension Pertinent Findings decreased energy 01/26/2017 None hypertension Pertinent Findings Denies dizziness 01/26/2017 None hypertension Pertinent Findings dyspnea 01/26/2017 occasional with exertion hypertension Pertinent Findings edema 01/26/2017 in both ankles arrhythmia Quality irregular beats 01/26/2017 (atrial fibrillation) arrhythmia Onset and Resolution resolved 01/26/2017 None arrhythmia Alleviating Factors medication 01/26/2017 None back pain Location lumbar-sacral spine 01/26/2017 None back pain Quality aching 01/26/2017 None back pain Quality constant 01/26/2017 None back pain Onset and Resolution ongoing 01/26/2017 None back pain Onset of Symptom _ years ago 01/26/2017 None back pain Frequency of Episodes daily 01/26/2017 None back pain Frequency of Episodes increasing 01/26/2017 None gait abnormality Quality unsteady 01/26/2017 None gait abnormality Onset and Resolution sudden in onset 01/26/2017 None gait abnormality Onset of Symptom 6 months ago 01/26/2017 None gait abnormality Frequency of Episodes daily 01/26/2017 None hypertension Quality primary hypertension 10/19/2016 None hypertension Onset and Resolution ongoing 10/19/2016 None hypertension Onset of Symptom during adulthood 10/19/2016 None hypertension Blood Pressure Values pt checking blood pressure - see scanned document 10/19/2016 None hypertension Alleviating Factors medication 10/19/2016 None arrhythmia Quality irregular beats 10/19/2016 (atrial fibrillation) arrhythmia Alleviating Factors medication 10/19/2016 None hypertension Pertinent Findings Denies dizziness 10/19/2016 None hypertension Pertinent Findings dyspnea 10/19/2016 occasional with exertion hypertension Pertinent Findings edema 10/19/2016 in both ankles arrhythmia Onset and Resolution resolved 10/19/2016 None hypertension Pertinent Findings decreased energy 10/19/2016 None hypertension Quality primary hypertension 09/22/2016 None hypertension Onset and Resolution ongoing 09/22/2016 None hypertension Quality stable 09/22/2016 None hypertension Onset of Symptom during adulthood 09/22/2016 None hypertension Blood Pressure Values pt checking blood pressure - see scanned document 09/22/2016 None hypertension Alleviating Factors medication 09/22/2016 None arrhythmia Quality irregular beats 09/22/2016 (atrial fibrillation) arrhythmia Onset and Resolution ongoing 09/22/2016 None arrhythmia Alleviating Factors medication 09/22/2016 None Hospital Follow Up _ Other: atrial fibrillation; nausea, abdominal pain 08/31/2016 None Hospital Follow Up Quality acute 08/31/2016 None Hospital Follow Up Onset of Symptom 8 days ago 08/31/2016 None Hospital Follow Up Onset and Resolution sudden in onset 08/31/2016 None back pain Location in the left lower back area 08/12/2016 None back pain Onset and Resolution sudden in onset 08/12/2016 None back pain Quality throbbing 08/12/2016 None back pain Quality sharp 08/12/2016 None back pain Quality stabbing 08/12/2016 None back pain Onset of Symptom 1 weeks ago 08/12/2016 None back pain Limitation on Activities moderately limits activities 08/12/2016 None back pain Frequency of Episodes constant 08/12/2016 None back pain Triggers no known associated factors 08/12/2016 None back pain Mechanism of injury unknown 08/12/2016 None back pain Radiating does not radiate 08/12/2016 None back pain Pertinent Findings Denies extremity numbness 08/12/2016 None back pain Pertinent Findings Denies extremity weakness 08/12/2016 None back pain Pertinent Findings Denies limited range of neck motion 08/12/2016 None back pain Pertinent Findings Denies motor vehicle accident 08/12/2016 None back pain Pertinent Findings morning stiffness 08/12/2016 None back pain Pertinent Findings Denies radicular pain - left arm 08/12/2016 None back pain Pertinent Findings Denies radicular pain - right arm 08/12/2016 None back pain Pertinent Findings Denies sleep disturbance 08/12/2016 None back pain Pertinent Findings Denies weakness 08/12/2016 None hypertension Onset and Resolution ongoing 07/28/2016 None hypertension Onset of Symptom during adulthood 07/28/2016 None hypertension Blood Pressure Values patient checking blood pressure at home - did not bring in readings 07/28/2016 None hypertension Triggers stress 07/28/2016 None hypertension Alleviating Factors medication 07/28/2016 None hypertension Pertinent Findings Denies dizziness 07/28/2016 None hypertension Pertinent Findings Denies dyspnea 07/28/2016 None hypertension Pertinent Findings Denies edema 07/28/2016 None hyperlipidemia Onset and Resolution ongoing 07/28/2016 None hyperlipidemia Onset of Symptom during adulthood 07/28/2016 None hyperlipidemia Alleviating Factors medication 07/28/2016 None hyperlipidemia Exacerbating Factors diet 07/28/2016 None hypothyroid Onset and Resolution ongoing 07/28/2016 None hypothyroid Alleviating Factors medication 07/28/2016 None hypertension Onset and Resolution ongoing 01/28/2016 None hypertension Onset of Symptom during adulthood 01/28/2016 None hypertension Blood Pressure Values patient checking blood pressure at home - did not bring in readings 01/28/2016 None hypertension Triggers stress 01/28/2016 None hypertension Alleviating Factors medication 01/28/2016 None hypertension Pertinent Findings Denies dizziness 01/28/2016 None hypertension Pertinent Findings Denies dyspnea 01/28/2016 None hypertension Pertinent Findings Denies edema 01/28/2016 None hyperlipidemia Onset and Resolution ongoing 01/28/2016 None hyperlipidemia Onset of Symptom during adulthood 01/28/2016 None hyperlipidemia Alleviating Factors medication 01/28/2016 None hyperlipidemia Exacerbating Factors diet 01/28/2016 None hypothyroid Onset and Resolution ongoing 01/28/2016 None hypothyroid Alleviating Factors medication 01/28/2016 None hyperlipidemia Onset and Resolution gradual in onset 01/28/2016 None hypertension Onset and Resolution ongoing 07/29/2015 None hypertension Onset of Symptom during adulthood 07/29/2015 None hypertension Triggers stress 07/29/2015 None hypertension Alleviating Factors medication 07/29/2015 None hypertension Pertinent Findings Denies dizziness 07/29/2015 None hypertension Pertinent Findings Denies dyspnea 07/29/2015 None hypertension Blood Pressure Values patient checking blood pressure at home - did not bring in readings 07/29/2015 -occasionally- 158/63 this morning hypertension Pertinent Findings Denies edema 07/29/2015 None hyperlipidemia Onset and Resolution ongoing 07/29/2015 None hyperlipidemia Onset of Symptom during adulthood 07/29/2015 None hyperlipidemia Alleviating Factors medication 07/29/2015 None hyperlipidemia Exacerbating Factors diet 07/29/2015 None diarrhea Quality intermittent 07/29/2015 None hypothyroid Onset and Resolution ongoing 07/29/2015 None hypothyroid Alleviating Factors medication 07/29/2015 None erythema Location-Major on the toes 07/29/2015 right Great toe erythema Onset and Resolution ongoing 07/29/2015 None erythema Quality painful 07/29/2015 None erythema Pertinent Findings tenderness 07/29/2015 None hypertension Onset and Resolution ongoing 03/31/2015 None hypertension Onset of Symptom during adulthood 03/31/2015 None hypertension Frequency of Episodes weekly 03/31/2015 None hypertension Blood Pressure Values not checking blood pressure at home 03/31/2015 she has a meter if she needs to check it hypertension Pertinent Findings Denies dizziness 03/31/2015 None hypertension Pertinent Findings Denies dyspnea 03/31/2015 None hypertension Triggers stress 03/31/2015 None hypertension Alleviating Factors medication 03/31/2015 None joint complaint Location on both knees 12/23/2014 - pt reports that in 1997 - her leg was fractured and she has plates and screws in her right leg. joint complaint Quality burning 12/23/2014 None joint complaint Quality sharp pain 12/23/2014 None back pain Quality burning 12/23/2014 worse on the right - a burning/grabbing pain on the right lower back back pain Quality intermittent 12/23/2014 None back pain Quality sharp 12/23/2014 None back pain Quality pinching 12/23/2014 None hypertension Onset of Symptom during adulthood 12/23/2014 None hyperlipidemia Onset of Symptom during adulthood 12/23/2014 None hyperlipidemia Frequency of Episodes unchanged 12/23/2014 None hypertension Onset and Resolution ongoing 12/23/2014 None hypertension Blood Pressure Values patient checking blood pressure at home - did not bring in readings 12/23/2014 None hypertension Frequency of Episodes weekly 12/23/2014 None back pain Limitation on Activities moderately limits activities 12/23/2014 None back pain Onset and Resolution ongoing 12/23/2014 None joint complaint Triggers activity 12/23/2014 None joint complaint Alleviating Factors rest 12/23/2014 None joint complaint Exacerbating Factors exertion 12/23/2014 None back pain Frequency of Episodes daily 12/23/2014 None back pain Triggers activity 12/23/2014 None back pain Alleviating Factors medication 12/23/2014 None back pain Alleviating Factors rest 12/23/2014 None Advance Directives No Advance Directive data Encounters Encounter Performer Location Codes Date ([id number]) [id number] EST. PATIENT, LEVEL IV Diagnosis: Essential (primary) hypertension[ICD10: I10] Diagnosis: Nonrheumatic aortic (valve) stenosis[ICD10: I35.0] Diagnosis: Atrophy of thyroid (acquired)[ICD10: E03.4] Diagnosis: Chronic atrial fibrillation[ICD10: I48.2] [facility] CPT-4: 00961 04/03/2018 ([id number]) 60306 EST. PATIENT, LEVEL IV Diagnosis: Essential (primary) hypertension[ICD10: I10] Diagnosis: Chronic atrial fibrillation[ICD10: I48.2] Diagnosis: Nonrheumatic aortic (valve) stenosis[ICD10: I35.0] Diagnosis: Age-related osteoporosis without current pathological fracture[ICD10 : M81.0] [facility] CPT-4: 39864 2017 62180 EST. PATIENT, LEVEL III Diagnosis: Low back pain[ICD10: M54.5] Diagnosis: Dysuria[ICD10: R30.0] Diagnosis: Gastro-esophageal reflux disease without esophagitis[ICD10: K21.9] Payton Cabrera MD, [facility] CPT-4: 63313 02/22/2018 ([id number]) 95037 EST. PATIENT, LEVEL III Diagnosis: Atrophy of thyroid (acquired)[ICD10: E03.4] Diagnosis: Other iron deficiency anemias[ICD10: D50.8] Diagnosis: Epigastric pain[ICD10: R10.13] Kandi Cabrera MD, [facility] CPT- 4: 21853 12/13/2017 ([id number]) 46625 EST. PATIENT, LEVEL IV Diagnosis: Diverticulitis of large intestine without perforation or abscess without bleeding[ICD10: K57.32] Kandi Cabrera MD, [facility] CPT-4: 91338 11/29/2017 ([id number]) 44645 EST. PATIENT, LEVEL IV Diagnosis: Atrophy of thyroid (acquired)[ICD10: E03.4] Diagnosis: Other iron deficiency anemias[ICD10: D50.8] Diagnosis: Epigastric pain[ICD10: R10.13] Diagnosis: Right lower quadrant pain[ICD10: R10.31] Diagnosis: Left lower quadrant pain[ICD10: R10.32] Kandi Cabrera MD, [facility] CPT-4: 88099 10/27/2017 79148 EST. PATIENT, LEVEL IV Diagnosis: Atrophy of thyroid (acquired)[ICD10: E03.4] Diagnosis: Other iron deficiency anemias[ICD10: D50.8] Diagnosis: Essential (primary) hypertension[ICD10: I10] Diagnosis: Gastro-esophageal reflux disease without esophagitis[ICD10: K21.9] Payton Cabrera MD, [facility] CPT-4: 93510 07/26/2017 ([id number]) 82959 EST. PATIENT, LEVEL IV Diagnosis: Other iron deficiency anemias[ICD10: D50.8] Diagnosis: Atrophy of thyroid (acquired)[ICD10: E03.4] Diagnosis: Tobacco use[ICD10: Z72.0] Diagnosis: Essential (primary) hypertension[ICD10: I10] Diagnosis: Low back pain[ICD10: M54.5] Kandi Cabrera MD [facility] CPT- 4: 55350 05/26/2017 ([id number]) 24798 EST. PATIENT, LEVEL IV Diagnosis: Shortness of breath[ICD10: R06.02] Diagnosis: Tobacco use[ICD10: Z72.0] Diagnosis: Chronic atrial fibrillation[ICD10: I48.2] Kandi Cabrera MD [facility] CPT-4: 03398 04/11/2017 ([id number]) 64496 EST. PATIENT, LEVEL III Diagnosis: Unsteadiness on feet[ICD10: R26.81] Diagnosis: Tobacco use[ICD10: Z72.0] Kandi Cabrera MD [facility] CPT-4: 42708 02/07/2017 ([id number]) 55525 EST. PATIENT, LEVEL IV Diagnosis: Cough[ICD10: R05] Diagnosis: Essential (primary) hypertension[ICD10: I10] Diagnosis: Chronic atrial fibrillation[ICD10: I48.2] Diagnosis: Unsteadiness on feet[ICD10: R26.81] Kandi Cabrera MD, [facility] CPT-4: 74410 01/26/2017 ([id number]) 43374 EST. PATIENT, LEVEL IV Diagnosis: Essential (primary) hypertension[ICD10: I10] Diagnosis: Atrophy of thyroid (acquired)[ICD10: E03.4] Diagnosis: Tobacco use[ICD10: Z72.0] Diagnosis: Chronic atrial fibrillation[ICD10: I48.2] Diagnosis: Mixed hyperlipidemia[ICD10: E78.2] Kandi Cabrera MD, [facility] CPT-4: 84812 10/19/2016 ([id number]) 45295 EST. PATIENT, LEVEL IV Diagnosis: Atrophy of thyroid (acquired)[ICD10: E03.4] Diagnosis: Mixed hyperlipidemia[ICD10: E78.2] Diagnosis: Essential (primary) hypertension[ICD10: I10] Kandi Cabrera MD [facility] CPT-4: 65188 09/22/2016 ([id number]) 48999 EST. PATIENT, LEVEL IV Diagnosis: Essential (primary) hypertension[ICD10: I10] Diagnosis: Atrophy of thyroid (acquired)[ICD10: E03.4] Diagnosis: Chronic atrial fibrillation[ICD10: I48.2] Kandi Cabrera MD, [facility] CPT-4: 73957 08/31/2016 ([id number]) 82801 EST. PATIENT, LEVEL III Diagnosis: Low back pain[ICD10: M54.5] Diagnosis: Sacroiliitis, not elsewhere classified[ICD10: M46.1] Janeen Cabrera MD, [facility] CPT-4: 99522 08/12/2016 ([id number]) 15470 EST. PATIENT, LEVEL IV Diagnosis: Mixed hyperlipidemia[ICD10: E78.2] Diagnosis: Essential (primary) hypertension[ICD10: I10] Diagnosis: Atrophy of thyroid (acquired)[ICD10: E03.4] Kandi Cabrera MD, [facility] CPT-4: 34564 07/28/2016 ([id number]) 22515 EST. PATIENT, LEVEL IV Diagnosis: Hypothyroidism, unspecified[ICD10: E03.9] Diagnosis: Essential (primary) hypertension[ICD10: I10] Diagnosis: Mixed hyperlipidemia[ICD10: E78.2] Diagnosis: Cellulitis of left lower limb[ICD10: L03.116] Diagnosis: Encounter for immunization[ICD10: Z23] Kandi Cabrera MD, [facility] CPT-4: 45106 01/28/2016 ([id number]) 90280 EST. PATIENT, LEVEL IV Diagnosis: Essential (primary) hypertension[ICD10: I10] Diagnosis: Hypothyroidism, unspecified[ICD10: E03.9] Diagnosis: Diarrhea, unspecified[ICD10: R19.7] Diagnosis: Tobacco use[ICD10: Z72.0] Diagnosis: Tobacco abuse counseling[ICD10: Z71.6] Diagnosis: Other obesity due to excess calories[ICD10: E66.09] Kandi Cabrera MD, [facility] CPT-4: 80713 07/29/2015 ([id number]) 09193 EST. PATIENT, LEVEL IV Diagnosis: Essential (primary) hypertension[ICD10: I10] Diagnosis: Hypothyroidism, unspecified[ICD10: E03.9] Diagnosis: Actinic keratosis[ICD10: L57.0] [facility] CPT- 4: 81923 03/31/2015 ([id number]) OFFICE VISIT, NEW - LEVEL 4 Diagnosis: ESSENTIAL HYPERTENSION[ICD9: 401.9] Diagnosis: HYPOTHYROIDISM[ICD9: 244.9] Diagnosis: HYPERLIPIDEMIA[ICD9: 272.4] Diagnosis: Osteoporosis[ICD9: 733.00] Diagnosis: OSTEOARTH NOS-UNSPEC[ICD9: 715.90] Diagnosis: Sacroiliitis[ICD9: 720.2] [facility] CPT-4: 25465 12/23/2014 Plan of Care Planned Activity Notes Codes Status Date Visit Plan: Medicare Exam - today we discussed the patients past history, immunizations, preventative exams/evaluations - colonoscopy, fecal occult blood testing, routine labs for renal function, glucose, cholesterol, osteoporosis evaluations, cardiovascular testing and cancer screenings. We have also discussed mental health and the signs/symptoms of depression. The patient was advised of home safety evaluations and the need to make sure that as the aging process continues, we need to be aware of different ways to make the home a safer place to reside. The patient has also been counseled that exercise is necessary - and of utmost importance as we age to help decrease fall risk and to maintain independece in the home. Today we discussed the need for the patient to create paperwork for Advanced directives as well as for the patient to provide this office with a copy of her DOPA paperwork for health care surrogate. 05/05/2018 Patient Education: Patient Medication Summary Completed 05/05/2018 Patient Education: Smoking and Tobacco Addiction Completed 05/05/2018 Appointment: Kandi Cabrera WPtel: [address] [place], [place] [id number] (15 min) Moderate 04/11/2018 Visit Plan: Hypertension - well controlled - continue with current medications, continue with no added salt diet. Pt has been encouraged to exercise daily. The pt has been advised to call the office if there are any acute concerns about change in blood pressure readings at home. Hypothyroidism - pt with chronic hypothyroidism, continue with current medication, will monitor pt to signs or symptoms of lack of adequate supplementation. Pt is to continue with current dose of medication unless directed otherwise. Check labs at regular intervals q 3 months or q 6 months based on previous levels of control. Pruritus - advised pt to start on 1/2 of a zyrtec or venu daily, call if not improving. 04/03/2018 Appointment: Kandi Cabrera WPtel: [facility] (15 min) Moderate 04/03/2018 Patient Education: Patient Medication Summary Completed 04/03/2018 Patient Education: Hypertension Completed 04/03/2018 Visit Plan: Hypertension - well controlled - continue with current medications, continue with no added salt diet. Pt has been encouraged to exercise daily. The pt has been advised to call the office if there are any acute concerns about change in blood pressure readings at home. Osteoporosis - chronic - we will get her set up for prolia injections at the hospital - she was on fosamax and had to stop due to gastric bleeding. Atrial Fibrillation - pt on chronic anticoagulation and is currently rate controlled. The pt is to have labs done as appropriate to monitor medication levels and is to report if they start to feel as if their heart rate is becoming uncontrolled. Aortic stenosis - discussed with pt - she needs to have a conversation about surgical intervention with her Traffic Attendant. 03/06/2018 Appointment: Kandi Cabrera WPtel[facility] [phone] [facility] (15 min) Moderate 03/06/2018 Patient Education: Patient Medication Summary Completed 03/06/2018 Patient Education: Hypertension Completed 03/06/2018 Visit Plan: Low back pain- the patient was instructed in appropriate posture, need for weight loss to alleviate abdominal obesity that is worsening the patient's back pain.. The pt is to use prn antiinflammatories to manage acute pain. The patient is to call the office if the pain is worsening or does not improve. UTI - pt with positive urinalysis - culture sent if appropriate. Antibiotic electronically prescribed to pt's pharmacy of choice. Pt to call if symptoms do not improve. Esophageal Reflux - the patient has been counseled against excessive intake of caffeine, spicy foods, peppermint , and cinnamon - all of which can exacerbate esophageal reflux. The patient is to take medications as prescribed and call the office if the symptoms are not improving. 02/22/2018 Appointment: Payton Leon WPtel: [address] [facility] [address] [place] (15 min) Moderate 02/22/2018 Patient Education: Patient Medication Summary Completed 02/22/2018 Patient Education: Back Pain Completed 02/22/2018 Visit Plan: Diarrhea - improved - pt advised to avoid seeds , nuts, popcorn, or any other food which has been proven to upset the pt's stomach. 12/13/2017 Appointment: Kandi Cabrera WPtel: [address] [facility] [place] (15 min) Moderate 12/13/2017 Patient Education: Patient Medication Summary Completed 12/13/2017 Visit Plan: Diverticulitis - rx for antibiotic sent to pt' s pharmacy - pt advised to avoid seeds, nuts, popcorn, or any other food which has been proven to upset the pt's stomach. 11/29/2017 Appointment: aKndi Cabrera WPtel: [address] [facility] [place] (15 min) Moderate 11/29/2017 Patient Education: Patient Medication Summary Completed 11/29/2017 Appointment: Kandi Cabrera WPtel: [phone] [facility] [place] (15 min) Moderate 11/24/2017 Visit Plan: Abdominal pain - diarrhea - needs colonoscopy - referral to Dr. Roach - we will also get pt scheduled for a Ct scan of abdomen and pelvis flagyl 500mg antibiotic to be taken three times daily x 10 days Anemia - will repeat labs and treat as indicated Esophageal Reflux - the patient has been counseled against excessive intake of caffeine, spicy foods, peppermint, and cinnamon - all of which can exacerbate esophageal reflux. The patient is to take medications as prescribed and call the office if the symptoms are not improving. take zantac in the morning and omeprazole at night. flagyl 500mg antibiotic to be taken three times daily x 10 days 10/27/2017 Appointment: Kandi Cabrera WPtel: [phone] [facility] [place] (15 min) Moderate 10/27/2017 Patient Education: Patient Medication Summary Completed 10/27/2017 Care Plan: Iron And Tibc Pending 10/27/2017 Referral: Maggi Reaves Referral Initiated 08/18/2017 Patient Education: Patient Medication Summary Completed 07/28/2017 Visit Plan: Hypothyroidism - pt with chronic hypothyroidism , continue with current medication, will monitor pt to signs or symptoms of lack of adequate supplementation. Pt is to continue with current dose of medication unless directed otherwise. Check labs at regular intervals wither q 3 months or q 6 months based on previous levels of control. Anemia - will repeat labs and treat as indicated Hypertension - well controlled - continue with current medications, continue with no added salt diet. Pt has been encouraged to exercise daily. The pt has been advised to call the office if there are any acute concerns about change in blood pressure readings at home. Esophageal Reflux - the patient has been counseled against excessive intake of caffeine, spicy foods, peppermint, and cinnamon - all of which can exacerbate esophageal reflux. The patient is to take medications as prescribed and call the office if the symptoms are not improving. 07/26/2017 Appointment: Payton Leon WPtel: [address] [facility] [address] (30 min) Complex 07/26/2017 Patient Education: Patient Medication Summary Completed 07/26/2017 Care Plan: Iron Pending 07/26/2017 Care Plan: Referral Order SNOMED-CT : [id number] Pending 07/26/2017 Visit Plan: Hypertension - well controlled - continue with current medications, continue with no added salt diet. Pt has been encouraged to exercise daily. The pt has been advised to call the office if there are any acute concerns about change in blood pressure readings at home. Anemia - recommended pt to be set pt up for IV iron at hospital - dx iron deficiency anemia. Tobacco use - recommended pt to stop smoking. Hypothyroidism - pt with chronic hypothyroidism, continue with current medication, will monitor pt to signs or symptoms of lack of adequate supplementation. Pt is to continue with current dose of medication unless directed otherwise. Check labs at regular intervals wither q 3 months or q 6 months based on previous levels of control. Back pain - stretching exercises recommended. 05/26/2017 Appointment: Kandi Cabrera WPtel: [address] [facility] (15 min) Moderate 05/26/2017 Patient Education: Patient Medication Summary Completed 05/26/2017 Patient Education: Patient Medication Summary Completed 05/19/2017 Care Plan: Iron Pending 05/19/2017 Visit Plan: Dyspnea on Exertion - uncontrolled - I have recommended pt to have Pulmonary function studies as well as a referral back to her Traffic Attendant - Dr. Hanna - I suspect she may need to have further studies - specifically - she may need to have stress testing. She has been having increasing shortness of breath with activity as well as discomfort across her back at the bra-line. Her states that the following dates are not available for them to have appts: 04/[address] Arriola and appt and May 04 pt's has appt with Dr. Hanna Tobaccoism - again discussed the need for the patient to stop smoking. I have recommended cutting back slowly - pt will continue to attempt to decrease intake, but states that she does "not ever think I will be completely off of cigarettes". 04/11/2017 Appointment: Kandi Cabrera WPtel: [address] (15 min) Moderate 04/11/2017 Patient Education: Patient Medication Summary Completed 04/11/2017 Patient Education: Smoking and Tobacco Addiction Completed 04/11/2017 Care Plan: Referral Order SNOMED-CT : [id number] Pending 04/11/2017 Appointment: Kandi Cabrera WPtel: [address] [phone] (15 min) Moderate 02/14/2017 Appointment: Injection 02/09/2017 Referral: [facility] W[facility]: [address] [facility]66[facility] Patient informed. Completed 02/09/2017 Patient Education: Patient Medication Summary Completed 02/09/2017 Patient Education: Smoking and Tobacco Addiction Completed 02/09/2017 Visit Plan: Tobacco abuse - chronic condition for this patient. Patient has been counseled about need to stop smoking due to the negative health affects. Pt has vocalized understanding and states that they will consider smoking cessation, but the pt is not yet ready to use medication to assist cessation. Rx for wellbutrin 75mg 1/2 pill bid. Gait instability - referral to [facility] for gait instability 02/07/2017 Appointment: Kandi Cabrera WPtel: [address] [facility] (15 min) Moderate 02/07/2017 Patient Education: Patient Medication Summary Completed 02/07/2017 Patient Education: Smoking and Tobacco Addiction Completed 02/07/2017 Care Plan: Referral Order SNOMED-CT : [id number] Pending 02/07/2017 Visit Plan: Cough - pt given rx for Chest xray - negative per verbal report. Pt needs update on immunizations - recommended that we find out about past shots.- we will ask dillons to fax records of shots. Gait instability - referral for physical therapy - depending on report of MRI of brain MRI of brain - RE - Weakness, Gait instability Hypertension - well controlled - continue with current medications, continue with no added salt diet. Pt has been encouraged to exercise daily. The pt has been advised to call the office if there are any acute concerns about change in blood pressure readings at home. Atrial Fibrillation - pt on chronic anticoagulation and is currently rate controlled. The pt is to have labs done as appropriate to monitor medication levels and is to report if they start to feel as if their heart rate is becoming uncontrolled. 01/26/2017 Appointment: Kandi Cabrera WPtel: [phone] [facility] (15 min) Moderate 01/26/2017 Patient Education: Patient Medication Summary Completed 01/26/2017 Patient Education: Smoking and Tobacco Addiction Completed 01/26/2017 Patient Education: Hypertension Completed 01/26/2017 Visit Plan: Hypertension - well controlled - continue with current medications, continue with no added salt diet. Pt has been encouraged to exercise daily. The pt has been advised to call the office if there are any acute concerns about change in blood pressure readings at home. Hyperlipidemia - pt has been counseled about appropriate diet, exercise, and need for low fat food choices. I have discussed the need for the patient to take medications as prescribed. If the patient has negative side effects from the medication, they are to CALL the office and not abruptly discontinue the medication without discussion with a practitioner in the office. We will check labs in 3-6 months for follow up on the patient's chronic medical problem and to assure normal liver response to medications. Hypothyroidism - pt with chronic hypothyroidism, continue with current medication, will monitor pt to signs or symptoms of lack of adequate supplementation. Pt is to continue with current dose of medication unless directed otherwise. Check labs at regular intervals wither q 3 months or q 6 months based on previous levels of control. Tobaccoism - discussed with pt need to stop smoking - she needs to cut back on her smoking by 1 cigarette daily per week. 10/19/2016 Appointment: Kandi Cabrera WPtel: [address] [facility] (15 min) Moderate 10/19/2016 Patient Education: Patient Medication Summary Completed 10/19/2016 Patient Education: Smoking and Tobacco Addiction Completed 10/19/2016 Patient Education: Hypertension Completed 10/19/2016 Visit Plan: Atrial Fibrillation - pt on chronic anticoagulation and is not optimally rate controlled. Pt is to see her senior technical business analyst tomorrow, will discuss with him her plans fortreatment. Hypertension - well controlled - continue with current medications, continue with no added salt diet. Pt has been encouraged to exercise daily. The pt has been advised to call the office if there are any acute concerns about change in blood pressure readings at home. Hypothyroidism - pt with chronic hypothyroidism , continue with current medication, will monitor pt to signs or symptoms of lack of adequate supplementation. Pt is to continue with current dose of medication unless directed otherwise. Check labs at regular intervals wither q 3 months or q 6 months based on previous levels of control. 09/22/2016 Appointment: Kandi Cabrera WPtel: [phone] [phone] (15 min) Moderate 09/22/2016 Patient Education: Patient Medication Summary Completed 09/22/2016 Patient Education: Smoking and Tobacco Addiction Completed 09/22/2016 Patient Education: Hypertension Completed 09/22/2016 Visit Plan: Atrial Fibrillation - pt on chronic anticoagulation and is currently rate controlled. The pt is to have labs done as appropriate to monitor medication levels and is to report if they start to feel as if their heart rate is becoming uncontrolled. Hypertension - well controlled - continue with current medications, continue with no added salt diet. Pt has been encouraged to exercise daily. The pt has been advised to call the office if there are any acute concerns about change in blood pressure readings at home. Hypothyroidism - pt with chronic hypothyroidism, continue with current medication, will monitor pt to signs or symptoms of lack of adequate supplementation. Pt is to continue with current dose of medication unless directed otherwise. Check labs at regular intervals wither q 3 months or q 6 months based on previous levels of control. 08/31/2016 Appointment: Kandi Cabrera WPtel: [phone] [phone] (15 min) Moderate 08/31/2016 Patient Education: Patient Medication Summary Completed 08/31/2016 Patient Education: Smoking and Tobacco Addiction Completed 08/31/2016 Patient Education: Hypertension Completed 08/31/2016 Visit Plan: Sacroiliitis -kenalog injection today in the office-tylenol as directed-heat as directed-xray lumbar spine. Pt is to call if the symptoms do not improve or if they worsen. 08/12/2016 Appointment: Janeen Marsh WPtel: [phone] (30 min) Complex 08/12/2016 Patient Education: Patient Medication Summary Completed 08/12/2016 Patient Education: Smoking and Tobacco Addiction Completed 08/12/2016 Appointment: Payton Leon WPtel: [phone] [facility] [facility] - Annual Wellness Visit 07/30/2016 Visit Plan: Hypertension - well controlled - continue with current medications, continue with no added salt diet. Pt has been encouraged to exercise daily. The pt has been advised to call the office if there are any acute concerns about change in blood pressure readings at home. Hypothyroidism - pt with chronic hypothyroidism, continue with current medication, will monitor pt to signs or symptoms of lack of adequate supplementation. Pt is to continue with current dose of medication unless directed otherwise. Check labs at regular intervals wither q 3 months or q 6 months based on previous levels of control. Hyperlipidemia - pt has been counseled about appropriate diet, exercise, and need for low fat food choices. I have discussed the need for the patient to take medications as prescribed. If the patient has negative side effects from the medication, they are to CALL the office and not abruptly discontinue the medication without discussion with a practitioner in the office. We will check labs in 3-6 months for follow up on the patient's chronic medical problem and to assure normal liver response to medications. 07/28/2016 App[facility]ment: [facility] [phone] [id number] [place] (15 min) Moderate 07/28/2016 Patient Education: Patient Medication Summary Completed 07/28/2016 Patient Education: Smoking and Tobacco Addiction Completed 07/28/2016 Visit Plan: Hypertension - well controlled - continue with current medications, continue with no added salt diet. Pt has been encouraged to exercise daily. The pt has been advised to call the office if there are any acute concerns about change in blood pressure readings at home. Hypothyroidism - pt with chronic hypothyroidism, continue with current medication, will monitor pt to signs or symptoms of lack of adequate supplementation. Pt is to continue with current dose of medication unless directed otherwise. Check labs at regular intervals wither q 3 months or q 6 months based on previous levels of control. Hyperlipidemia - pt has been counseled about appropriate diet, exercise, and need for low fat food choices. I have discussed the need for the patient to take medications as prescribed. If the patient has negative side effects from the medication, they are to CALL the office and not abruptly discontinue the medication without discussion with a practitioner in the office. We will check labs in 3-6 months for follow up on the patient's chronic medical problem and to assure normal liver response to medications. cellulitis left ankle- rx for keflex sent to pharmacy flu shot today 01/28/2016 Visit Plan: Hypertension - well controlled - continue with current medications, continue with no added salt diet. Pt has been encouraged to exercise daily. The pt has been advised to call the office if there are any acute concerns about change in blood pressure readings at home. Hypothyroidism - pt with chronic hypothyroidism, continue with current medication, will monitor pt to signs or symptoms of lack of adequate supplementation. Pt is to continue with current dose of medication unless directed otherwise. Check labs at regular intervals wither q 3 months or q 6 months based on previous levels of control. Hyperlipidemia - pt has been counseled about appropriate diet, exercise, and need for low fat food choices. I have discussed the need for the patient to take medications as prescribed. If the patient has negative side effects from the medication, they are to CALL the office and not abruptly discontinue the medication without discussion with a practitioner in the office. We will check labs in 3-6 months for follow up on the patient's chronic medical problem and to assure normal liver response to medications. cellulitis left ankle- rx for keflex sent to pharmacy flu shot today 01/28/2016 Appointment: Kandi Cabrera WPtel: [phone] [facility] [place] (15 min) Moderate 01/28/2016 Patient Education: Patient Medication Summary Completed 01/28/2016 Patient Education: Smoking and Tobacco Addiction Completed 01/28/2016 Visit Plan: Hypertension - well controlled - continue with current medications, continue with no added salt diet. Pt has been encouraged to exercise daily. The pt has been advised to call the office if there are any acute concerns about change in blood pressure readings at home. Hypothyroidism - pt with chronic hypothyroidism, continue with current medication, will monitor pt to signs or symptoms of lack of adequate supplementation. Pt is to continue with current dose of medication unless directed otherwise. Check labs at regular intervals wither q 3 months or q 6 months based on previous levels of control. Tobacco user - recommended cessation Overweight - need to increase activity 07/29/2015 Appointment: [facility]el[facility] [phone] [id number] [place] (15 min) Moderate 07/29/2015 Patient Education: Patient Medication Summary Completed 07/29/2015 Patient Education: Smoking and Tobacco Addiction Completed 07/29/2015 Patient Education: Hypertension Completed 07/29/2015 Patient Education: Obesity Completed 07/29/2015 Care Plan: BMI Above normal followup SELF-MGMT EDUC & TRAIN 1 PT Ordered 2015 Visit Plan: Hypertension - well controlled - continue with current medications, continue with no added salt diet. Pt has been encouraged to exercise daily. The pt has been advised to call the office if there are any acute concerns about change in blood pressure readings at home. Hypothyroidism - pt with chronic hypothyroidism, continue with current medication, will monitor pt to signs or symptoms of lack of adequate supplementation. Pt is to continue with current dose of medication unless directed otherwise. Check labs at regular intervals wither q 3 months or q 6 months based on previous levels of control. Actinic keratosis - left congregational and left nasal bridge - pt to use efudex on the lesions on the nose and face. 03/31/2015 Appointment: K[facility] Cabrera [facility]Ptel[facility] [phone] [id number] [place] (15 min) Moderate 03/31/2015 Patient Education: Patient Medication Summary Completed 03/31/2015 Patient Education: Hypertension Completed 03/31/2015 Visit Plan: Hypertension - well controlled - continue with current medications, continue with no added salt diet. Pt has been encouraged to exercise daily. The pt has been advised to call the office if there are any acute concerns about change in blood pressure readings at home. Hypothyroidism - pt with chronic hypothyroidism, continue with current medication, will monitor pt to signs or symptoms of lack of adequate supplementation. Pt is to continue with current dose of medication unless directed otherwise. Check labs at regular intervals wither q 3 months or q 6 months based on previous levels of control. Arthritis- occasionally uncontrolled symptoms- recommend pt to take antiinflammatory as directed for pain control. RX for voltaren gel sent to the pharmacy. Use tylenol for break through pain symptoms. Sacroiliitis - back exercises discussed with the patient, pt to continue with anti-inflammatories. Pt is to call if the symptoms do not improve or if they worsen. Osteoporosis - pt to have DEXA scan, check vitamin D levels. 12/23/2014 Appointment: K[facility] Cabrera [facility]Ptel[facility] [phone] [facility] [place] (S) New Patient 12/23/2014 Patient Education: Patient Medication Summary Completed 12/23/2014 Patient Education: Hypertension Completed 12/23/2014 Care Plan: Referral Order SNOMED-CT : [id number] Ordered 12/23/2014 Referral: External, Ordering Provider Referral Completed Referral: External, Ordering Provider Referral Appointment Requested Referral: Maggi Reaves Referral Initiated Referral: [facility] [phone] [facility] Referral Appointment Requested Referral: External, Ordering Provider Dr. Hanna's office has already contacted her about an appt scheduled for April 25 at 9:00 AM. Completed Instructions Comment . Cough - pt given rx for Chest xray - negative per verbal report. Pt needs update on immunizations - recommended that we find out about past shots.- we will ask dillons to fax records of shots. Gait instability - referral for physical therapy - depending on report of MRI of brain MRI of brain - RE - Weakness, Gait instability Hypertension - well controlled - continue with current medications, continue with no added salt diet. Pt has been encouraged to exercise daily. The pt has been advised to call the office if there are any acute concerns about change in blood pressure readings at home. Atrial Fibrillation - pt on chronic anticoagulation and is currently rate controlled. The pt is to have labs done as appropriate to monitor medication levels and is to report if they start to feel as if their heart rate is becoming uncontrolled. . Hypertension - well controlled - continue with current medications, continue with no added salt diet. Pt has been encouraged to exercise daily. The pt has been advised to call the office if there are any acute concerns about change in blood pressure readings at home. Hypothyroidism - pt with chronic hypothyroidism, continue with current medication, will monitor pt to signs or symptoms of lack of adequate supplementation. Pt is to continue with current dose of medication unless directed otherwise. Check labs at regular intervals wither q 3 months or q 6 months based on previous levels of control. Hyperlipidemia - pt has been counseled about appropriate diet, exercise, and need for low fat food choices. I have discussed the need for the patient to take medications as prescribed. If the patient has negative side effects from the medication, they are to CALL the office and not abruptly discontinue the medication without discussion with a practitioner in the office. We will check labs in 3-6 months for follow up on the patient's chronic medical problem and to assure normal liver response to medications. . Medicare Exam - today we discussed the patients past history, immunizations, preventative exams/evaluations - colonoscopy, fecal occult blood testing, routine labs for renal function, glucose, cholesterol, osteoporosis evaluations, cardiovascular testing and cancer screenings. We have also discussed mental health and the signs/symptoms of depression. The patient was advised of home safety evaluations and the need to make sure that as the aging process continues, we need to be aware of different ways to make the home a safer place to reside. The patient has also been counseled that exercise is necessary - and of utmost importance as we age to help decrease fall risk and to maintain independece in the home. Today we discussed the need for the patient to create paperwork for Advanced directives as well as for the patient to provide this office with a copy of her DOP[employer] paperwork for health care surrogate. . Dyspnea on Exertion - uncontrolled - I have recommended pt to have Pulmonary function studies as well as a referral back to her Traffic Attendant - Dr. Hanna - I suspect she may need to have further studies - specifically - she may need to have stress testing. She has been having increasing shortness of breath with activity as well as discomfort across her back at the bra-line. Her states that the following dates are not available for them to have appts: 04/[address] Arriola and appt and May 04 pt's has appt with Dr. Jacques Aguirre - again discussed the need for the patient to stop smoking. I have recommended cutting back slowly - pt will continue to attempt to decrease intake , but states that she does "not ever think I will be completely off of cigarettes". Will culture your urine to make sure the antibiotic is the right one for your bladder infection Will check labs to see your blood level, thyroid, and kidney function Will start you on an antibiotic for the bladder infection Will start prednisone (steroid pill) to take in the morning for 5 days to help with the back pain We do not have any dexilant samples but call us in 2 weeks to see if we have any. Continue your omeprazole for now, when we get dexilant samples in we will try to switch them. . Low back pain- the patient was instructed in appropriate posture, need for weight loss to alleviate abdominal obesity that is worsening the patient's back pain.. The pt is to use prn antiinflammatories to manage acute pain. The patient is to call the office if the pain is worsening or does not improve. UTI - pt with positive urinalysis - culture sent if appropriate. Antibiotic electronically prescribed to pt's pharmacy of choice. Pt to call if symptoms do not improve. Esophageal Reflux - the patient has been counseled against excessive intake of caffeine, spicy foods, peppermint, and cinnamon - all of which can exacerbate esophageal reflux. The patient is to take medications as prescribed and call the office if the symptoms are not improving. take zantac in the morning and omeprazole at night. flagyl 500mg antibiotic to be taken three times daily x 10 days . Abdominal pain - diarrhea - needs colonoscopy - referral to Dr. Roach - we will also get pt scheduled for a Ct scan of abdomen and pelvis flagyl 500mg antibiotic to be taken three times daily x 10 days Anemia - will repeat labs and treat as indicated Esophageal Reflux - the patient has been counseled against excessive intake of caffeine, spicy foods, peppermint, and cinnamon - all of which can exacerbate esophageal reflux. The patient is to take medications as prescribed and call the office if the symptoms are not improving. take zantac in the morning and omeprazole at night. flagyl 500mg antibiotic to be taken three times daily x 10 days zantac 150mg take twice daily x 2 weeks - this will help to decrease the Histamine #2 receptors and should help you to not be as itchy. benadryl liquid - clear - take 1/2 dose in morning, 1/2 dose at supper and a full dose at bedtime. . Hypertension - well controlled - continue with current medications, continue with no added salt diet. Pt has been encouraged to exercise daily. The pt has been advised to call the office if there are any acute concerns about change in blood pressure readings at home. Anemia - recommended pt to be set pt up for IV iron at hospital - dx iron deficiency anemia. Tobacco use - recommended pt to stop smoking. Hypothyroidism - pt with chronic hypothyroidism, continue with current medication, will monitor pt to signs or symptoms of lack of adequate supplementation. Pt is to continue with current dose of medication unless directed otherwise. Check labs at regular intervals wither q 3 months or q 6 months based on previous levels of control. Back pain - stretching exercises recommended. . Tobacco abuse - chronic condition for this patient. Patient has been counseled about need to stop smoking due to the negative health affects. Pt has vocalized understanding and states that they will consider smoking cessation, but the pt is not yet ready to use medication to assist cessation. Rx for wellbutrin 75mg 1/2 pill bid. [facility] . Hypertension - well controlled - continue with current medications, continue with no added salt diet. Pt has been encouraged to exercise daily. The pt has been advised to call the office if there are any acute concerns about change in blood pressure readings at home. Hypothyroidism - pt with chronic hypothyroidism, continue with current medication, will monitor pt to signs or symptoms of lack of adequate supplementation. Pt is to continue with current dose of medication unless directed otherwise. Check labs at regular intervals wither q 3 months or q 6 months based on previous levels of control. Hyperlipidemia - pt has been counseled about appropriate diet, exercise, and need for low fat food choices. I have discussed the need for the patient to take medications as prescribed. If the patient has negative side effects from the medication, they are to CALL the office and not abruptly discontinue the medication without discussion with a practitioner in the office. We will check labs in 3-6 months for follow up on the patient's chronic medical problem and to assure normal liver response to medications. cellulitis left ankle- rx for keflex sent to pharmacy flu shot today . Hypertension - well controlled - continue with current medications, continue with no added salt diet. Pt has been encouraged to exercise daily. The pt has been advised to call the office if there are any acute concerns about change in blood pressure readings at home. Hypothyroidism - pt with chronic hypothyroidism, continue with current medication, will monitor pt to signs or symptoms of lack of adequate supplementation. Pt is to continue with current dose of medication unless directed otherwise. Check labs at regular intervals wither q 3 months or q 6 months based on previous levels of control. Hyperlipidemia - pt has been counseled about appropriate diet, exercise, and need for low fat food choices. I have discussed the need for the patient to take medications as prescribed. If the patient has negative side effects from the medication, they are to CALL the office and not abruptly discontinue the medication without discussion with a practitioner in the office. We will check labs in 3-6 months for follow up on the patient's chronic medical problem and to assure normal liver response to medications. cellulitis left ankle- rx for keflex sent to pharmacy flu shot today . Atrial Fibrillation - pt on chronic anticoagulation and is not optimally rate controlled. Pt is to see her senior technical business analyst tomorrow, will discuss with him her plans fortreatment. Hypertension - well controlled - continue with current medications, continue with no added salt diet. Pt has been encouraged to exercise daily. The pt has been advised to call the office if there are any acute concerns about change in blood pressure readings at home. Hypothyroidism - pt with chronic hypothyroidism, continue with current medication, will monitor pt to signs or symptoms of lack of adequate supplementation. Pt is to continue with current dose of medication unless directed otherwise. Check labs at regular intervals wither q 3 months or q 6 months based on previous levels of control. . Diverticulitis - rx for antibiotic sent to pt's pharmacy - pt advised to avoid seeds, nuts, popcorn, or any other food which has been proven to upset the pt's stomach. . Hypertension - well controlled - continue with current medications, continue with no added salt diet. Pt has been encouraged to exercise daily. The pt has been advised to call the office if there are any acute concerns about change in blood pressure readings at home. Osteoporosis - chronic - we will get her set up for prolia injections at the hospital - she was on fosamax and had to stop due to gastric bleeding. Atrial Fibrillation - pt on chronic anticoagulation and is currently rate controlled. The pt is to have labs done as appropriate to monitor medication levels and is to report if they start to feel as if their heart rate is becoming uncontrolled. Aortic stenosis - discussed with pt - she needs to have a conversation about surgical intervention with her Traffic Attendant. start on the synthroid 137mcg daily - sample given to you in clinic. we will call with the lab results. . Hypertension - well controlled - continue with current medications, continue with no added salt diet. Pt has been encouraged to exercise daily. The pt has been advised to call the office if there are any acute concerns about change in blood pressure readings at home. Hypothyroidism - pt with chronic hypothyroidism, continue with current medication, will monitor pt to signs or symptoms of lack of adequate supplementation. Pt is to continue with current dose of medication unless directed otherwise. Check labs at regular intervals wither q 3 months or q 6 months based on previous levels of control. Arthritis- occasionally uncontrolled symptoms- recommend pt to take antiinflammatory as directed for pain control. RX for voltaren gel sent to the pharmacy. Use tylenol for break through pain symptoms. Sacroiliitis - back exercises discussed with the patient, pt to continue with anti-inflammatories. Pt is to call if the symptoms do not improve or if they worsen. Osteoporosis - pt to have DEXA scan, check vitamin D levels. xray lumbar spine tylenol 2 tabs three times daily lumbar support pillow call tuesday if not better . Sacroiliitis -kenalog injection today in the office-tylenol as directed-heat as directed-xray lumbar spine. Pt is to call if the symptoms do not improve or if they worsen. PROBIOTIC - stanislav chavez [employer], lactobacilus /acidophilis brand probiotic - these can be taken to help decrease gas/bloating and diarrhea - . Hypertension - well controlled - continue with current medications, continue with no added salt diet. Pt has been encouraged to exercise daily. The pt has been advised to call the office if there are any acute concerns about change in blood pressure readings at home. Hypothyroidism - pt with chronic hypothyroidism, continue with current medication, will monitor pt to signs or symptoms of lack of adequate supplementation. Pt is to continue with current dose of medication unless directed otherwise. Check labs at regular intervals wither q 3 months or q 6 months based on previous levels of control. Tobacco user - recommended cessation Overweight - need to increase activity take 1/2 of an venu or zyrtec with your evening pills . Hypertension - well controlled - continue with current medications, continue with no added salt diet. Pt has been encouraged to exercise daily. The pt has been advised to call the office if there are any acute concerns about change in blood pressure readings at home. Hypothyroidism - pt with chronic hypothyroidism, continue with current medication, will monitor pt to signs or symptoms of lack of adequate supplementation. Pt is to continue with current dose of medication unless directed otherwise. Check labs at regular intervals q 3 months or q 6 months based on previous levels of control. Pruritus - advised pt to start on 1/2 of a zyrtec or venu daily, call if not improving. . Hypertension - well controlled - continue with current medications, continue with no added salt diet. Pt has been encouraged to exercise daily. The pt has been advised to call the office if there are any acute concerns about change in blood pressure readings at home. Hypothyroidism - pt with chronic hypothyroidism, continue with current medication, will monitor pt to signs or symptoms of lack of adequate supplementation. Pt is to continue with current dose of medication unless directed otherwise. Check labs at regular intervals wither q 3 months or q 6 months based on previous levels of control. Actinic keratosis - left congregational and left nasal bridge - pt to use efudex on the lesions on the nose and face. . Hypertension - well controlled - continue with current medications, continue with no added salt diet. Pt has been encouraged to exercise daily. The pt has been advised to call the office if there are any acute concerns about change in blood pressure readings at home. Hyperlipidemia - pt has been counseled about appropriate diet, exercise, and need for low fat food choices. I have discussed the need for the patient to take medications as prescribed. If the patient has negative side effects from the medication, they are to CALL the office and not abruptly discontinue the medication without discussion with a practitioner in the office. We will check labs in 3-6 months for follow up on the patient's chronic medical problem and to assure normal liver response to medications. Hypothyroidism - pt with chronic hypothyroidism, continue with current medication, will monitor pt to signs or symptoms of lack of adequate supplementation. Pt is to continue with current dose of medication unless directed otherwise. Check labs at regular intervals wither q 3 months or q 6 months based on previous levels of control. Tobaccoism - discussed with pt need to stop smoking - she needs to cut back on her smoking by 1 cigarette daily per week. . Diarrhea - improved - pt advised to avoid seeds, nuts, popcorn, or any other food which has been proven to upset the pt's stomach. . Hypothyroidism - pt with chronic hypothyroidism, continue with current medication, will monitor pt to signs or symptoms of lack of adequate supplementation. Pt is to continue with current dose of medication unless directed otherwise. Check labs at regular intervals wither q 3 months or q 6 months based on previous levels of control. Anemia - will repeat labs and treat as indicated Hypertension - well controlled - continue with current medications, continue with no added salt diet. Pt has been encouraged to exercise daily. The pt has been advised to call the office if there are any acute concerns about change in blood pressure readings at home. Esophageal Reflux - the patient has been counseled against excessive intake of caffeine, spicy foods, peppermint, and cinnamon - all of which can exacerbate esophageal reflux. The patient is to take medications as prescribed and call the office if the symptoms are not improving. . Atrial Fibrillation - pt on chronic anticoagulation and is currently rate controlled. The pt is to have labs done as appropriate to monitor medication levels and is to report if they start to feel as if their heart rate is becoming uncontrolled. Hypertension - well controlled - continue with current medications, continue with no added salt diet. Pt has been encouraged to exercise daily. The pt has been advised to call the office if there are any acute concerns about change in blood pressure readings at home. Hypothyroidism - pt with chronic hypothyroidism, continue with current medication, will monitor pt to signs or symptoms of lack of adequate supplementation. Pt is to continue with current dose of medication unless directed otherwise. Check labs at regular intervals wither q 3 months or q 6 months based on previous levels of control.
--- OUTSIDE RECORDS SUMMARY | 2018-05-09 08:50 | XMS REPORT | CCD ---
Author Author Kandi Cabrera MD, [facility] Address [address] [place] [address] Phone Care Team Providers Care Ship'S Captain Name Role Phone PP Unavailable CCM Unavailable Summary Purpose Interface Exchange Insurance Providers Payer name Policy type / Coverage type Covered democrat ID Effective Begin Date Effective End Date [facility] Commercial Insurance [id number] 2017 Unknown WPS Medicare Part B Commercial Insurance [id number] 2017 Unknown Family history Father Diagnosis Age [...] Unknown Retired 12/23/[address]: 63185864 Current every day smoker 12/23/2014 Number of years using tobacco Unknown > 50 trying to quit 12/23/2014 Number of cigarettes/day Unknown 10 ( Half a pack) 12/23/[address]: 499255931 Never drinks alcohol 12/23/2014 Allergies, Adverse Reactions, Alerts Substance Reaction Codes Entered Date Inactivated Date Status * NO KNOWN DRUG ALLERGIES Unknown 12/23/2014 No Inactive Date Active Past Medical History Illness Codes Condition Status Onset Date Resolved Date 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-10: [...] Problems Condition Codes Effective Dates Condition Status 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-10: [...] Fill Instructions prednisone 20 mg tablet RxNorm: 263482 2 Tablet(s) PO daily 07/201702/26/2018 Inactive Cipro 500 mg tablet RxNorm: 104721 1 Tablet(s) PO BID 201702/28/2018 Inactive Synthroid 100 mcg tablet RxNorm: 063352 1 Tablet(s) PO daily 05/08/2019 Active potassium chloride ER 10 mEq tablet,extended release RxNorm: 342762 1 Tablet(s) PO UD take on days that you take a lasix pill 02/13/2018 02/07/2019 Active simvastatin 20 mg tablet RxNorm: 367128 1 Tablet(s) PO QHS 01/07/2019 Active metronidazole 500 mg tablet RxNorm: 057497 1 Tablet(s) PO TID 11/29/2017 12/08/2017 Inactive alendronate 70 mg tablet RxNorm: 574975 1 Tablet(s) PO weekly 11/29/2017 03/05/2018 Inactive omeprazole 40 mg capsule,delayed release RxNorm: 813676 1 Capsule(s) PO daily 11/11/2017 11/05/2018 Active Flagyl 500 mg tablet RxNorm: 126073 1 Tablet(s) PO TID 201711/05/2017 Inactive sucralfate 1 gram tablet RxNorm: 693119 1 Tablet(s) PO TID 10/201707/20/2018 Active fluticasone 50 mcg/actuation nasal spray,suspension RxNorm: 1874864 1 Twilight NASAL daily 07/26/2017 No Stop Date Active Protonix 40 mg tablet,delayed release RxNorm: 001447 1 Tablet(s) PO daily 07/26/2017 10/23/2017 Inactive Tricor 145 mg tablet RxNorm: 525019 1 Tablet(s) PO daily 201705/20/2018 Active perphenazine-amitriptyline 2 mg-10 mg tablet RxNorm: 583062 2 Tablet(s) PO daily 05/26/2017 05/20/2018 Active bupropion HCl 75 mg tablet RxNorm: 523136 1/2 Tablet(s) PO BID 02/07/2017 05/07/2017 Inactive Eliquis 5 mg tablet RxNorm: 7415761 1 Tablet(s) PO BID 201601/20/2018 Inactive sotalol 80 mg tablet RxNorm: 4910473 1 Tablet(s) PO BID 201604/20/2018 Active Lasix 20 mg tablet RxNorm: 693582 1 Tablet(s) PO daily as needed not more than one time a day 01/26/2017 05/25/2017 Inactive potassium chloride ER 10 mEq tablet,extended release RxNorm: 371500 1 Tablet(s) PO UD take on days that you take a lasix pill 01/26/2017 01/20/2018 Inactive Synthroid 100 mcg tablet RxNorm: 748086 1 Tablet(s) PO daily 02/12/2018 Inactive diltiazem ER 240 mg capsule,extended release RxNorm: 877351 1 Capsule(s) PO BID 01/26/2017 05/03/2017 Inactive simvastatin 20 mg tablet RxNorm: 582675 1 Tablet(s) PO QHS 05/201612/15/2017 Inactive alendronate 70 mg tablet RxNorm: 368176 1 Tablet(s) PO weekly 12/21/2016 11/28/2017 Inactive omeprazole 40 mg capsule,delayed release RxNorm: 451315 1 Capsule(s) PO daily 10/19/2016 10/12/2017 Inactive metoprolol succinate ER 100 mg tablet,extended release 24 hr RxNorm: 826233 1.5 Tablet(s) PO daily 09/17/2016 10/18/2016 Inactive Dosage increased by Dr. Vazquez potassium chloride ER 10 mEq tablet,extended release RxNorm: 724920 1 Tablet(s) PO UD take on days that you take a lasix pill 08/31/2016 12/28/2016 Inactive Lasix 20 mg tablet RxNorm: 620783 1 Tablet(s) PO daily as needed not more than one time a day 08/31/2016 12/28/2016 Inactive Kenalog 40 mg/mL suspension for injection RxNorm: 9093433 1 Milliliter(s) Inj 08/12/2016 08/12/2016 Inactive Tricor 145 mg tablet RxNorm: 106368 1 Tablet(s) PO daily 201505/15/2017 Inactive atenolol 25 mg tablet RxNorm: 967760 1 Tablet(s) PO daily 201508/30/2016 Inactive sucralfate 1 gram tablet RxNorm: 899085 1 Tablet(s) PO TID 05/15/2017 Inactive enalapril maleate 10 mg tablet RxNorm: 387281 1 Tablet(s) PO daily 04/26/2016 08/30/2016 Inactive perphenazine-amitriptyline 2 mg-10 mg tablet RxNorm: 127865 2 Tablet(s) PO daily 04/26/2016 04/20/2017 Inactive fluticasone 50 mcg/actuation nasal spray,suspension RxNorm: 9221690 1 Twilight NASAL daily 04/26/2016 07/25/2017 Inactive Synthroid 100 mcg tablet RxNorm: 452869 1 Tablet(s) PO daily 01/25/2017 Inactive Synthroid 100 mcg tablet RxNorm: 190523 1 Tablet(s) PO daily 02/08/2016 Inactive Keflex 500 mg capsule RxNorm: 472559 1 Capsule(s) PO TID 201502/01/2016 Inactive hydrochlorothiazide 25 mg tablet RxNorm: 130340 TAKE 1 TABLET DAILY 01/07/2016 08/30/2016 Inactive enalapril maleate 10 mg tablet RxNorm: 008225 1 Tablet(s) PO daily 12/26/2015 04/25/2016 Inactive hydrochlorothiazide 25 mg tablet RxNorm: 468262 1 Tablet(s) PO daily 12/08/2015 08/30/2016 Inactive omeprazole 40 mg capsule,delayed release RxNorm: 909625 1 Capsule(s) PO daily 12/08/2015 10/18/2016 Inactive simvastatin 20 mg tablet RxNorm: 303137 1 Tablet(s) PO QHS 11/07/2016 Inactive alendronate 70 mg tablet RxNorm: 611077 1 Tablet(s) PO weekly 10/31/2015 10/24/2016 Inactive Synthroid 112 mcg tablet RxNorm: 075861 1 Tablet(s) PO daily 02/08/2016 Inactive sucralfate 1 gram tablet RxNorm: 945986 1 Tablet(s) PO TID 05/20/2016 Inactive perphenazine-amitriptyline 2 mg-10 mg tablet RxNorm: 963263 2 Tablet(s) PO daily 06/17/2015 04/25/2016 Inactive fluticasone 50 mcg/actuation nasal spray,suspension RxNorm: 3020376 1 Twilight NASAL daily 06/17/2015 04/25/2016 Inactive fluorouracil 5 % topical cream RxNorm: 215474 APPLY 1 APPLICATION TOPICALLY TWO TIMES A DAY 06/16/2015 06/25/2015 Inactive fluticasone 50 mcg/actuation nasal spray,suspension RxNorm: 769657 1 Twilight NASAL daily 06/12/2015 06/16/2015 Inactive atenolol 25 mg tablet RxNorm: 103482 1 Tablet(s) PO daily 201405/07/2016 Inactive Tricor 145 mg tablet RxNorm: 228151 1 Tablet(s) PO daily 201404/16/2016 Inactive Synthroid 125 mcg tablet RxNorm: 135420 1 Tablet(s) PO daily 07/15/2015 Inactive fluorouracil 5 % topical cream RxNorm: 373251 1 Application TOP BID 03/31/2015 04/09/2015 Inactive Synthroid 137 mcg tablet RxNorm: 307803 1 Tablet(s) PO daily 12/24/2014 Inactive Synthroid 137 mcg tablet RxNorm: 852417 1 Tablet(s) PO daily 03/30/2015 Inactive Voltaren 1 % topical gel RxNorm: 037787 4 Gram(s) TOP QID 12/2304/21/2015 Inactive alendronate 70 mg tablet RxNorm: 519795 1 Tablet(s) PO weekly 12/23/2014 12/22/2014 Inactive alendronate 70 mg tablet RxNorm: 692151 1 Tablet(s) PO weekly 12/23/2014 10/30/2015 Inactive Fosamax 70 mg tablet RxNorm: 438200 1 Tablet(s) PO weekly QW 01/27/2016 Inactive omeprazole 40 mg capsule,delayed release RxNorm: 702040 1 Capsule(s) PO daily 12/18/2014 12/07/2015 Inactive omeprazole 40 mg capsule,delayed release RxNorm: 776635 1 Capsule(s) PO daily 12/18/2014 12/17/2014 Inactive hydrochlorothiazide 25 mg tablet RxNorm: 786760 1 Tablet(s) PO daily 12/18/2014 12/17/2014 Inactive hydrochlorothiazide 25 mg tablet RxNorm: 310473 1 Tablet(s) PO daily 12/18/2014 12/07/2015 Inactive L-Lysine 1,000 mg tablet RxNorm: 297251 1 Tablet(s) PO daily No Start Date Active folic acid 400 mcg tablet RxNorm: 433479 1 Tablet(s) PO daily No Start Date Active B12 1000 mcg RxNorm: 1/2 Tablet(s) PO daily No Start Date Active Vitamin D3 1,000 unit chewable tablet RxNorm: 281464 1 Tablet(s) PO daily No Start Date Active diltiazem 120 mg tablet RxNorm: 566373 1 Tablet(s) PO daily No Start Date Active metoprolol succinate ER 100 mg tablet,extended release 24 hr RxNorm: 751294 1 Tablet(s) PO daily No Start Date 2016 Inactive enalapril maleate 10 mg tablet RxNorm: 036259 1 Tablet(s) PO daily No Start Date 12/25/2015 Inactive perphenazine-amitriptyline 2 mg-10 mg tablet RxNorm: 963738 2 Tablet(s) PO daily No Start Date 06/16/2015 Inactive sucralfate 1 gram tablet RxNorm: 998868 1 Tablet(s) PO TID No Start Date 06/16/2015 Inactive hydrochlorothiazide 25 mg tablet RxNorm: 114265 1 Tablet(s) PO daily No Start Date 08/30/2016 Inactive vitamin E (dl, acetate) 400 unit capsule RxNorm: 714458 1 Capsule(s) PO daily No Start Date 03/05/2018 Inactive sotalol 80 mg tablet RxNorm: 2075328 1 Tablet(s) PO BID No Start Date 01/25/2017 Inactive Synthroid 150 mcg tablet RxNorm: 247568 1 Tablet(s) PO daily No Start Date 12/24/2014 Inactive simvastatin 20 mg tablet RxNorm: 212753 1 Tablet(s) PO daily No Start Date 11/13/2015 Inactive Vitamin C RxNorm: PO 1000mg qd No Start Date 03/05/2018 Inactive Fosamax 70 mg tablet RxNorm: 277380 1 Tablet(s) PO weekly No Start Date 12/22/2014 Inactive Tricor 145 mg tablet RxNorm: 800693 1 Tablet(s) PO daily No Start Date 04/22/2015 Inactive diltiazem ER 180 mg capsule,24 hr,extended release RxNorm: 857922 1 Capsule(s) PO daily No Start Date 03/05/2018 Inactive diltiazem ER 240 mg capsule,extended release RxNorm: 562362 1 Capsule(s) PO BID No Start Date 01/25/2017 Inactive Eliquis 5 mg tablet RxNorm: 1702294 1 Tablet(s) PO BID No Start Date 01/25/2017 Inactive fluticasone 50 mcg/actuation nasal spray,suspension RxNorm: 685453 1 Twilight NASAL daily No Start Date 06/11/2015 Inactive atenolol 25 mg tablet RxNorm: 287768 1 Tablet(s) PO daily No Start Date 05/13/2015 Inactive Medication Administered Medication Codes Instructions Start Date Status Kenalog 40 mg/mL suspension for injection RxNorm: 3484335 1Milliliter 08/12/2016 No longer Active Immunizations Vaccine Codes Date Status Influenza CVX: 141 02/09/2017 completed Pneumococcal (Adult) CVX: 133 02/09/2017 completed Influenza CVX: 141 01/28/2016 completed Zoster CVX: 121 07/22/2011 completed Pneumococcal CVX: 33 11/20/2008 completed Assessments Condition Codes Effective Dates Chronic atrial fibrillation ICD-10: I48.2 ICD-9: 427.31 [...] Visit Reason For Visit Effective Dates Notes hypertension 04/03/2018 Hospital Follow Up 03/06/2018 back [...] 29.9 pg 03/17/2018 Cbc With Differential Ord2 Porter% 13.3 % 03/17/2018 Cbc With Differential Ord2 MCHC 32.0 pg 03/17/2018 Cbc With Differential Ord2 Eos% 2.9 % 03/17/2018 Cbc With Differential Ord2 Baso% 0.5 % 03/17/2018 Cbc With Differential Ord2 PLT 369 K/ul 03/17/2018 Cbc With Differential Ord2 Neut ABS# 4.00 K/ul 03/17/2018 Cbc With Differential Ord2 RDW 14.9 % 03/17/2018 Cbc With Differential Ord2 Lymph ABS# 0.90 K/ul 03/17/2018 Cbc With Differential Ord2 Porter ABS# 0.8 K/ul 03/17/2018 Cbc With Differential [...] 8.8 g/dl 02/22/2018 Cbc With Differential Ord2 HCT 27.2 % 02/22/2018 Cbc With Differential Ord2 Neut% 69.7 % 02/22/2018 Cbc With Differential Ord2 MCV 93.5 fl 02/22/2018 Cbc With Differential Ord2 Lymph% 14.5 % 02/22/2018 Cbc With Differential Ord2 MCH 30.2 pg 02/22/2018 Cbc With Differential Ord2 Porter% 11.5 % 02/22/2018 Cbc With Differential Ord2 MCHC 32.4 pg 02/22/2018 Cbc With Differential Ord2 Eos% 3.5 % 02/22/2018 Cbc With Differential Ord2 PLT 414 K/ul 02/22/2018 Cbc With Differential Ord2 Baso% 0.8 % 02/22/2018 Cbc With Differential Ord2 RDW 15.4 % 02/22/2018 Cbc With Differential Ord2 Neut ABS# 4.12 K/ul 02/22/2018 Cbc With Differential Ord2 Lymph ABS# 0.86 K/ul 02/22/2018 Cbc With Differential Ord2 Porter ABS# 0.7 K/ul 02/22/2018 Cbc With Differential Ord2 Eos ABS# 0.2 K/ul 02/22/2018 Cbc With Differential Ord2 Baso ABS# 0.1 K/ul 02/22/2018 Tsh Ord6 TSH (3rd IS) 0.66 uIU/mL 02/22/2018 Free T4 Abv456 FREE T4 1.22 ng/dL 02/22/2018 Comp Metabolic Qzk190 NA 136 mEq/L 02/22/2018 Comp Metabolic Hbp056 K 4.4 mEq/L 02/22/2018 Comp Metabolic Rmh179 CL 102 mEq/L 02/22/2018 Comp Metabolic Ndn610 CO2 23.0 mEq/L 02/22/2018 Comp Metabolic Dnm563 ANION GAP 15 02/22/2018 Comp Metabolic Ipx961 GLUCOSE 94 mg/dL 02/22/2018 Comp Metabolic Kno504 Creat 1.2 mg/dL 02/22/2018 Comp Metabolic Gil063 eGFR 46 ml/min/1.73m2 02/22/2018 Comp Metabolic Gtq880 BUN 31 mg/dL 02/22/2018 Comp Metabolic Djc297 B/C Ratio 25.8 Ratio 02/22/2018 Comp Metabolic Wwm829 CALCIUM 9.2 mg/dL 02/22/2018 Comp Metabolic Nni001 ALK PHOS 34 U/L 02/22/2018 Comp Metabolic Iuz379 AST(SGOT) 18 U/L 02/22/2018 Comp Metabolic Pqq477 ALT(SGPT) 8 U/L 02/22/2018 Comp Metabolic Oev151 BILI T 0.4 mg/dL 02/22/2018 Comp Metabolic Tkz380 ALBUMIN 3.6 g/dL 02/22/2018 Comp Metabolic Mnt667 TPRO 6.2 g/dL 02/22/2018 Comp Metabolic Azb430 GLOB 2.6 g/dL 02/22/2018 Comp Metabolic Amy974 A/G Ratio 1.4 Ratio 02/22/2018 Comp Metabolic Ecx846 Osmo 278 mOsmo 02/22/2018 Free T4 Emn845 FREE T4 1.11 ng/dL 10/27/2017 Lipid Ord30 [...] 12.5 g/dl 10/27/2017 Cbc With Differential Ord2 HCT 38.3 % 10/27/2017 Cbc With Differential Ord2 Neut% 61.0 % 10/27/2017 Cbc With Differential Ord2 MCV 94.1 fl 10/27/2017 Cbc With Differential Ord2 Lymph% 23.3 % 10/27/2017 Cbc With Differential Ord2 Porter% 11.3 % 10/27/2017 Cbc With Differential Ord2 MCH 30.7 pg 10/27/2017 Cbc With Differential Ord2 MCHC 32.6 pg 10/27/2017 Cbc With Differential Ord2 Eos% 3.8 % 10/27/2017 Cbc With Differential Ord2 PLT 364 K/ul 10/27/2017 Cbc With Differential Ord2 Baso% 0.6 % 10/27/2017 Cbc With Differential Ord2 Neut ABS# 3.03 K/ul 10/27/2017 Cbc With Differential Ord2 RDW 16.5 % 10/27/2017 Cbc With Differential Ord2 Lymph ABS# 1.16 K/ul 10/27/2017 Cbc With Differential Ord2 Porter ABS# 0.6 K/ul 10/27/2017 Cbc With Differential Ord2 Eos ABS# 0.2 K/ul 10/27/2017 Cbc With Differential Ord2 Baso ABS# 0.0 K/ul 10/27/2017 Comp Metabolic Mmq775 NA 135 mEq/L 10/27/2017 Comp Metabolic Xun674 K 4.7 mEq/L 10/27/2017 Comp Metabolic Uzh931 CL 101 mEq/L 10/27/2017 Comp Metabolic Xfn089 CO2 23.0 mEq/L 10/27/2017 Comp Metabolic Lca618 ANION GAP 16 10/27/2017 Comp Metabolic Qaa963 GLUCOSE 84 mg/dL 10/27/2017 Comp Metabolic Vie069 Creat 1.2 mg/dL 10/27/2017 Comp Metabolic Pql305 eGFR 46 ml/min/1.73m2 10/27/2017 Comp Metabolic Giy234 BUN 30 mg/dL 10/27/2017 Comp Metabolic Hri454 B/C Ratio 25.2 Ratio 10/27/2017 Comp Metabolic Ipp176 CALCIUM 9.4 mg/dL 10/27/2017 Comp Metabolic Jnm283 ALK PHOS 30 U/L 10/27/2017 Comp Metabolic Lpy492 AST(SGOT) 25 U/L 10/27/2017 Comp Metabolic Vdk614 ALT(SGPT) 12 U/L 10/27/2017 Comp Metabolic Oao484 BILI T 0.5 mg/dL 10/27/2017 Comp Metabolic Bex269 ALBUMIN 3.7 g/dL 10/27/2017 Comp Metabolic Xrq628 TPRO 6.5 g/dL 10/27/2017 Comp Metabolic Kty737 GLOB 2.8 g/dL 10/27/2017 Comp Metabolic Wkz060 A/G Ratio 1.3 Ratio 10/27/2017 Comp Metabolic Kdt263 Osmo 275 mOsmo 10/27/2017 Hgb & Hct Ord65 HGB 12.2 g/dl 07/29/2017 Hgb & Hct Ord65 HCT 38.8 % 07/29/2017 Tibc Ord40 Iron 79 ug/dl 07/26/2017 Tibc Ord40 UIBC 380 ug/dL 07/26/2017 Tibc Ord40 TIBC 459 ug/dL 07/26/2017 Tibc Ord40 Fe-%Sat 17.2 % 07/26/2017 Tsh Ord6 TSH (3rd IS) 0.46 uIU/mL 07/26/2017 Ferritin Ord22 FERRITIN 83.6 ng/mL 07/26/2017 Free T4 Tih579 FREE T4 1.00 ng/dL 07/26/2017 Tibc Ord40 [...] 31.0 pg 08/02/2016 Cbc With Differential Ord2 Porter% 9.4 % 08/02/2016 Cbc With Differential Ord2 MCHC 32.8 pg 08/02/2016 Cbc With Differential Ord2 Eos% 3.2 % 08/02/2016 Cbc With Differential Ord2 PLT 152 K/ul 08/02/2016 Cbc With Differential Ord2 Baso% 0.9 % 08/02/2016 Cbc With Differential Ord2 Neut ABS# 5.35 K/ul 08/02/2016 Cbc With Differential Ord2 RDW 16.0 % 08/02/2016 Cbc With Differential Ord2 Lymph ABS# 1.44 K/ul 08/02/2016 Cbc With Differential Ord2 Porter ABS# 0.7 K/ul 08/02/2016 Cbc With Differential Ord2 Eos ABS# 0.3 K/ul 08/02/2016 Cbc With Differential Ord2 Baso ABS# 0.1 K/ul 08/02/2016 Lipid Ord30 CHOL 142 mg/dL 08/02/2016 Lipid Ord30 HDL 40.0 mg/dl 08/02/2016 Lipid Ord30 TRIG 169 mg/dL 08/02/2016 Lipid Ord30 LDL 68 mg/dL 08/02/2016 Lipid Ord30 C/HDL 3.6 Ratio 08/02/2016 Comp Metabolic Yks203 NA 139 mEq/L 08/02/2016 Comp Metabolic Pth258 K 5.2 mEq/L 08/02/2016 Comp Metabolic Cuk202 CL 108 mEq/L 08/02/2016 Comp Metabolic Ddt201 CO2 22.0 mEq/L 08/02/2016 Comp Metabolic Hwx422 ANION GAP 14 08/02/2016 Comp Metabolic Aac210 GLUCOSE 103 mg/dL 08/02/2016 Comp Metabolic Jca790 Creat 1.1 mg/dL 08/02/2016 Comp Metabolic Rgo325 eGFR 54 ml/min/1.73m2 08/02/2016 Comp Metabolic Ifx357 BUN 26 mg/dL 08/02/2016 Comp Metabolic Hrl817 B/C Ratio 24.8 Ratio 08/02/2016 Comp Metabolic Ifr552 CALCIUM 9.4 mg/dL 08/02/2016 Comp Metabolic Sqq778 ALK PHOS 41 U/L 08/02/2016 Comp Metabolic Nvy886 AST(SGOT) 18 U/L 08/02/2016 Comp Metabolic Cry231 ALT(SGPT) 10 U/L 08/02/2016 Comp Metabolic Zrh875 BILI T 0.3 mg/dL 08/02/2016 Comp Metabolic Ubz347 ALBUMIN 3.7 g/dL 08/02/2016 Comp Metabolic Sdt902 TPRO 6.5 g/dL 08/02/2016 Comp Metabolic Fis210 GLOB 2.8 g/dL 08/02/2016 Comp Metabolic Dqq442 A/G Ratio 1.3 Ratio 08/02/2016 Comp Metabolic Yjo606 Osmo 283 mOsmo 08/02/2016 Free T4 Clf777 FREE T4 1.08 ng/dL 08/02/2016 Tsh Ord6 hTSH II 0.35 uIU/mL 05/13/2016 Free T4 Kch971 FREE T4 0.78 ng/dL 05/13/2016 Free T4 Jot451 FREE T4 1.13 ng/dL 01/28/2016 Tsh Ord6 hTSH II 0.19 uIU/mL 01/28/2016 Cbc With Differential Ord2 WBC 7.49 K/ul 07/14/2015 Cbc With Differential Ord2 RBC 4.20 M/ul 07/14/2015 Cbc With Differential Ord2 HGB 12.7 g/dl 07/14/2015 Cbc With Differential Ord2 HCT 39.1 % 07/14/2015 Cbc With Differential Ord2 Neut% 63.9 % 07/14/2015 Cbc With Differential Ord2 Lymph% 24.0 % 07/14/2015 Cbc With Differential Ord2 MCV 93.1 fl 07/14/2015 Cbc With Differential Ord2 Porter% 9.1 % 07/14/2015 Cbc With Differential Ord2 MCH 30.2 pg 07/14/2015 Cbc With Differential Ord2 MCHC 32.5 pg 07/14/2015 Cbc With Differential Ord2 Eos% 2.5 % 07/14/2015 Cbc With Differential Ord2 PLT 344 K/ul 07/14/2015 Cbc With Differential Ord2 Baso% 0.5 % 07/14/2015 Cbc With Differential Ord2 Neut ABS# 4.78 K/ul 07/14/2015 Cbc With Differential Ord2 RDW 15.1 % 07/14/2015 Cbc With Differential Ord2 Lymph ABS# 1.80 K/ul 07/14/2015 Cbc With Differential Ord2 Porter ABS# 0.7 K/ul 07/14/2015 Cbc With Differential [...] Ord30 C/HDL 3.0 Ratio 07/14/2015 Comp Metabolic Utc950 NA 136 mEq/L 07/14/2015 Comp Metabolic Pba603 K 4.4 mEq/L 07/14/2015 Comp Metabolic Vla377 CL 101 mEq/L 07/14/2015 Comp Metabolic Mlp645 CO2 27.0 mEq/L 07/14/2015 Comp Metabolic Jbn737 ANION GAP 12 07/14/2015 Comp Metabolic Iqj804 GLUCOSE 97 mg/dL 07/14/2015 Comp Metabolic Uha238 Creat 1.0 mg/dL 07/14/2015 Comp Metabolic Xej795 eGFR 56 ml/min/1.73m2 07/14/2015 Comp Metabolic Kwi300 BUN 27 mg/dL 07/14/2015 Comp Metabolic Rjd872 B/C Ratio 26.7 Ratio 07/14/2015 Comp Metabolic Orr303 CALCIUM 9.3 mg/dL 07/14/2015 Comp Metabolic Oja129 ALK PHOS 33 U/L 07/14/2015 Comp Metabolic Flw123 AST(SGOT) 14 U/L 07/14/2015 Comp Metabolic Bgi639 ALT(SGPT) 8 U/L 07/14/2015 Comp Metabolic Ich987 BILI T 0.4 mg/dL 07/14/2015 Comp Metabolic Dcx341 ALBUMIN 3.8 g/dL 07/14/2015 Comp Metabolic Dse542 TPRO 6.6 g/dL 07/14/2015 Comp Metabolic Ffq525 GLOB 2.8 g/dL 07/14/2015 Comp Metabolic Nux518 A/G Ratio 1.4 Ratio 07/14/2015 Comp Metabolic Wkt483 Osmo 277 mOsmo 07/14/2015 Tsh Ord6 hTSH II 0.23 uIU/mL 07/14/2015 Free T4 Gjp269 FREE T4 1.19 ng/dL 07/14/2015 Cbc With [...] Ord30 C/HDL 3.4 Ratio 03/26/2015 Comp Metabolic Ahu405 NA 135 mEq/L 03/26/2015 Comp Metabolic Msj712 K 5.0 mEq/L 03/26/2015 Comp Metabolic Opo575 CL 99 mEq/L 03/26/2015 Comp Metabolic Qfb426 CO2 27.0 mEq/L 03/26/2015 Comp Metabolic Mtz054 ANION GAP 14 03/26/2015 Comp Metabolic Hyn538 GLUCOSE 88 mg/dL 03/26/2015 Comp Metabolic Nfe962 Creat 1.1 mg/dL 03/26/2015 Comp Metabolic Kcq004 eGFR 50 ml/min/1.73m2 03/26/2015 Comp Metabolic Wzm666 BUN 27 mg/dL 03/26/2015 Comp Metabolic Opo158 B/C Ratio 24.1 Ratio 03/26/2015 Comp Metabolic Lpk420 CALCIUM 9.9 mg/dL 03/26/2015 Comp Metabolic Qrm803 ALK PHOS 30 U/L 03/26/2015 Comp Metabolic Swb733 AST(SGOT) 16 U/L 03/26/2015 Comp Metabolic Rit916 ALT(SGPT) 8 U/L 03/26/2015 Comp Metabolic Mue510 BILI T 0.4 mg/dL 03/26/2015 Comp Metabolic Fph184 ALBUMIN 3.9 g/dL 03/26/2015 Comp Metabolic Ulb858 TPRO 6.4 g/dL 03/26/2015 Comp Metabolic Fdx777 GLOB 2.5 g/dL 03/26/2015 Comp Metabolic Tgo536 A/G Ratio 1.6 Ratio 03/26/2015 Comp Metabolic Vim131 Osmo 275 mOsmo 03/26/2015 Free T4 Pim975 FREE T4 1.22 ng/dL 03/26/2015 Tsh Ord6 hTSH II 0.20 uIU/mL 03/26/2015 Vitamin D 25 Oh Kma4016 VITAMIN D, 25 HYDROXY 51.09 ng/mL Tsh Ord6 hTSH II 0.09 uIU/mL 12/23/2014 Free T4 Sro332 FREE T4 1.30 ng/dL 12/23/2014 Comp Metabolic Omf220 NA 135 mEq/L 12/23/2014 Comp Metabolic Xoq351 K 4.7 mEq/L 12/23/2014 Comp Metabolic Qlg410 CL 100 mEq/L 12/23/2014 Comp Metabolic Gro642 CO2 23.0 mEq/L 12/23/2014 Comp Metabolic Bab995 ANION GAP 17 12/23/2014 Comp Metabolic Woh305 GLUCOSE 93 mg/dL 12/23/2014 Comp Metabolic Clf103 Creat 1.1 mg/dL 12/23/2014 Comp Metabolic Qfu272 eGFR 53 ml/min/1.73m2 12/23/2014 Comp Metabolic Obi255 BUN 26 mg/dL 12/23/2014 Comp Metabolic Axw258 B/C Ratio 24.3 Ratio 12/23/2014 Comp Metabolic Nli200 CALCIUM 9.5 mg/dL 12/23/2014 Comp Metabolic Vsg990 ALK PHOS 27 U/L 12/23/2014 Comp Metabolic Hsw852 AST(SGOT) 16 U/L 12/23/2014 Comp Metabolic Zur648 ALT(SGPT) 8 U/L 12/23/2014 Comp Metabolic Ige194 BILI T 0.4 mg/dL 12/23/2014 Comp Metabolic Zzv812 ALBUMIN 3.9 g/dL 12/23/2014 Comp Metabolic Gum751 TPRO 6.7 g/dL 12/23/2014 Comp Metabolic Ctf203 GLOB 2.8 g/dL 12/23/2014 Comp Metabolic Hzc878 A/G Ratio 1.4 Ratio 12/23/2014 Comp Metabolic Adg624 Osmo 275 mOsmo 12/23/2014 Review of Systems [...] - General 1995 Ears/Nose/Throat oral cavity/pharynx/larynx Overall: hypopharynx benign 07/28/2016 [...] inspection of skin Consistency: thick 03/31/2015 left anabaptist and left nasal bridge - actinic keratosis [...] joint 12/23/2014 None Procedures Procedure Codes Date 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-[address]: 287401887 CPT-4: G0436 04/11/2017 PNEUMOCOCCAL VACC [address]: 39734278 CPT-4: 02599 02/09/2017 FLU VACC PRSV FREE INC ANTIG CPT-4: 71556 02/09/2017 ADMIN INFLUENZA VIRUS VAC CPT-4: G0008 02/09/2017 ADMIN PNEUMOCOCCAL VACCINE SNOMED CT: 81297570 CPT-4: G0009 02/09/2017 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-[address]: 899474878 CPT-4: G0436 02/07/2017 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-[address]: 045172182 CPT-4: G0436 10/19/2016 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-[address]: 644435314 CPT-4: G0436 08/31/2016 TRIAMCINOLONE ACET INJ NOS CPT-4: J3301 08/12/2016 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-[address]: 142576896 CPT-4: G0436 07/28/2016 ADMIN INFLUENZA VIRUS VAC CPT-4: G0008 01/28/2016 FLU VACC 4 JULISA 3 YRS PLUS IM SNOMED CT: 24728616 CPT-4: 77620 01/28/2016 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-[address]: 080298909 CPT-4: G0436 07/29/2015 Vital Signs Date Vital 04/03/2018 Blood Pressure 1: 142/80 Code : 8480-6 BMI: 25.2 Code : 56872-4 Heart Rate 1 : 99 bpm Height: 5'4" SpO2: 97% Weight: 147 lbs 03/06/2018 Blood Pressure 1: 140/80 Code : 8480-6 BMI: 26.1 Code : 68207-1 Heart Rate 1 : 71 bpm Height: 5'4" SpO2: 98% Weight: 152 lbs 02/22/2018 Blood Pressure 1: 146/68 Code : 8480-6 BMI: 26.6 Code : 37242-0 Heart Rate 1 : 88 bpm Height: 5'4" SpO2: 97% Weight: 155 lbs 12/13/2017 Blood Pressure 1: 132/68 Code : 8480-6 BMI: 26.6 Code : 54040-3 Heart Rate 1 : 72 bpm Height: 5'4" SpO2: 94% Weight: 154 lbs 14 oz 11/29/2017 Blood Pressure 1: 130/64 Code : 8480-6 BMI: 26.1 Code : 71476-7 Heart Rate 1 : 81 bpm Height: 5'4" SpO2: 94% Weight: 152 lbs 10/27/2017 Blood Pressure 1: 120/62 Code : 8480-6 BMI: 25.9 Code : 23717-3 Heart Rate 1 : 70 bpm Height: 5'4" SpO2: 96% Weight: 151 lbs 07/26/2017 Blood Pressure 1: 146/70 Code : 8480-6 BMI: 26.3 Code : 95561-0 Heart Rate 1 : 69 bpm Height: 5'4" SpO2: 98% Weight: 153 lbs 05/26/2017 Blood Pressure 1: 142/76 Code : 8480-6 BMI: 26.4 Code : 88902-1 Heart Rate 1 : 59 bpm Height: 5'4" SpO2: 99% Weight: 154 lbs 04/11/2017 Blood Pressure 1: 134/64 Code : 8480-6 BMI: 26.6 Code : 02288-5 Heart Rate 1 : 65 bpm Height: 5'4" SpO2: 98% Weight: 155 lbs 02/07/2017 Blood Pressure 1: 120/72 Code : 8480-6 Heart Rate 1: 72 bpm Height: 5'4" SpO2: 96% Weight: 01/26/2017 Blood Pressure 1: 146/68 Code : 8480-6 BMI: 26.4 Code : 79324-3 Heart Rate 1 : 96 bpm Height: 5'4" SpO2: 97% Weight: 154 lbs 10/19/2016 Blood Pressure 1: 144/76 Code : 8480-6 BMI: 25.8 Code : 18642-1 Heart Rate 1 : 68 bpm Height: 5'4" SpO2: 96% Weight: 150 lbs 8 oz 09/22/2016 Blood Pressure 1: 122/80 Code : 8480-6 BMI: 26.1 Code : 12471-3 Heart Rate 1 : 111 bpm Height: 5'4" SpO2: 97% Weight: 152 lbs 08/31/2016 Blood Pressure 1: 152/82 Code : 8480-6 BMI: 27.1 Code : 12931-8 Heart Rate 1 : 118 bpm Height: 5'4" SpO2: 96% Weight: 158 lbs 08/12/2016 Blood Pressure 1: 146/78 Code : 8480-6 BMI: 26.9 Code : 96492-1 Heart Rate 1 : 68 bpm Height: 5'4" SpO2: 97% Weight: 157 lbs 07/28/2016 Blood Pressure 1: 128/64 Code : 8480-6 BMI: 27.1 Code : 77535-7 Heart Rate 1 : 63 bpm Height: 5'4" SpO2: 97% Weight: 158 lbs 01/28/2016 Blood Pressure 1: 130/70 Code : 8480-6 BMI: 27.3 Code : 65850-9 Heart Rate 1 : 60 bpm Height: 5'4" SpO2: 95% Weight: 159 lbs 07/29/2015 Blood Pressure 1: 136/80 Code : 8480-6 BMI: 28.1 Code : 50242-0 Heart Rate 1 : 68 bpm Height: 5'4" SpO2: 96% Weight: 163 lbs 8 oz 03/31/2015 Blood Pressure 1: 138/88 Code : 8480-6 BMI: 27.5 Code : 20621-9 Heart Rate 1 : 72 bpm Height: 5'4" Weight: 160 lbs 12/23/2014 Blood Pressure 1: 138/68 Code : 8480-6 BMI: 27.1 Code : 71015-4 Heart Rate 1 : 63 bpm Height: 5'4" SpO2: 94% Weight: 158 lbs Functional Status No Functional Status data History of Present Illness Symptom Name Status Result Effective Date Notes hypertension Quality primary hypertension 04/03/2018 None hypertension [...] data Encounters Encounter Performer Location Codes Date ([id number]) 38979 EST. PATIENT, LEVEL IV Diagnosis: Essential (primary) hypertension[ICD10: I10] Diagnosis: Nonrheumatic aortic (valve) stenosis[ICD10: I35.0] Diagnosis: Atrophy of thyroid (acquired)[ICD10: E03.4] Diagnosis: Chronic atrial fibrillation[ICD10: I48.2] [facility] CPT-4: 43038 04/03/2018 ([id number]) 40631 EST. PATIENT, LEVEL IV Diagnosis: Essential (primary) hypertension[ICD10: I10] Diagnosis: Chronic atrial fibrillation[ICD10: I48.2] Diagnosis: Nonrheumatic aortic (valve) stenosis[ICD10: I35.0] Diagnosis: Age-related osteoporosis without current pathological fracture[ICD10 : M81.0] Kandi Cabrera MD [facility] CPT-4: 67430 2017 52357 EST. PATIENT, LEVEL III Diagnosis: Low back pain[ICD10: M54.5] Diagnosis: Dysuria[ICD10: R30.0] Diagnosis: Gastro-esophageal reflux disease without esophagitis[ICD10: K21.9] Payton Cabrera MD [facility] CPT-4: 42172 02/22/2018 ([id number]) 41940 EST. PATIENT, LEVEL III Diagnosis: Atrophy of thyroid (acquired)[ICD10: E03.4] Diagnosis: Other iron deficiency anemias[ICD10: D50.8] Diagnosis: Epigastric pain[ICD10: R10.13] Kandi Cabrera MD [facility] CPT- 4: 65327 12/13/2017 ([id number]) 47629 EST. PATIENT, LEVEL IV Diagnosis: Diverticulitis of large intestine without perforation or abscess without bleeding[ICD10: K57.32] Kandi Cabrera MD [facility] CPT-4: 00061 11/29/2017 ([id number]) 75977 EST. PATIENT, LEVEL IV Diagnosis: Atrophy of thyroid (acquired)[ICD10: E03.4] Diagnosis: Other iron deficiency anemias[ICD10: D50.8] Diagnosis: Epigastric pain[ICD10: R10.13] Diagnosis: Right lower quadrant pain[ICD10: R10.31] Diagnosis: Left lower quadrant pain[ICD10: R10.32] Kandi Cabrera MD [facility] CPT-4: 09139 10/27/2017 11310 EST. PATIENT, LEVEL IV Diagnosis: Atrophy of thyroid (acquired)[ICD10: E03.4] Diagnosis: Other iron deficiency anemias[ICD10: D50.8] Diagnosis: Essential (primary) hypertension[ICD10: I10] Diagnosis: Gastro-esophageal reflux disease without esophagitis[ICD10: K21.9] Payton Cabrera MD [facility] CPT-4: 52575 07/26/2017 ([id number]) 07079 EST. PATIENT, LEVEL IV Diagnosis: Other iron deficiency anemias[ICD10: D50.8] Diagnosis: Atrophy of thyroid (acquired)[ICD10: E03.4] Diagnosis: Tobacco use[ICD10: Z72.0] Diagnosis: Essential (primary) hypertension[ICD10: I10] Diagnosis: Low back pain[ICD10: M54.5] Kandi Cabrera MD [facility] CPT- 4: 18151 05/26/2017 ([id number]) 66686 EST. PATIENT, LEVEL IV Diagnosis: Shortness of breath[ICD10: R06.02] Diagnosis: Tobacco use[ICD10: Z72.0] Diagnosis: Chronic atrial fibrillation[ICD10: I48.2] [facility] CPT-4: 40521 04/11/2017 ([id number]) 08647 EST. PATIENT, LEVEL III Diagnosis: Unsteadiness on feet[ICD10: R26.81] Diagnosis: Tobacco use[ICD10: Z72.0] Kandi Cabrera MD [facility] CPT-4: 90908 02/07/2017 ([id number]) 94899 EST. PATIENT, LEVEL IV Diagnosis: Cough[ICD10: R05] Diagnosis: Essential (primary) hypertension[ICD10: I10] Diagnosis: Chronic atrial fibrillation[ICD10: I48.2] Diagnosis: Unsteadiness on feet[ICD10: R26.81] Kandi Cabrera MD, [facility] CPT-4: 72401 01/26/2017 ([id number]) 74903 EST. PATIENT, LEVEL IV Diagnosis: Essential (primary) hypertension[ICD10: I10] Diagnosis: Atrophy of thyroid (acquired)[ICD10: E03.4] Diagnosis: Tobacco use[ICD10: Z72.0] Diagnosis: Chronic atrial fibrillation[ICD10: I48.2] Diagnosis: Mixed hyperlipidemia[ICD10: E78.2] Kandi Cabrera MD, [facility] CPT-4: 93713 10/19/2016 ([id number]) 75183 EST. PATIENT, LEVEL IV Diagnosis: Atrophy of thyroid (acquired)[ICD10: E03.4] Diagnosis: Mixed hyperlipidemia[ICD10: E78.2] Diagnosis: Essential (primary) hypertension[ICD10: I10] [facility] CPT-4: 23797 09/22/2016 ([id number]) 20842 EST. PATIENT, LEVEL IV Diagnosis: Essential (primary) hypertension[ICD10: I10] Diagnosis: Atrophy of thyroid (acquired)[ICD10: E03.4] Diagnosis: Chronic atrial fibrillation[ICD10: I48.2] Kandi Cabrera MD [facility] CPT-4: 27034 08/31/2016 ([id number]) 52115 EST. PATIENT, LEVEL III Diagnosis: Low back pain[ICD10: M54.5] Diagnosis: Sacroiliitis, not elsewhere classified[ICD10: M46.1] Janeen Cabrera MD, [facility] CPT-4: 07201 08/12/2016 ([id number]) 41960 EST. PATIENT, LEVEL IV Diagnosis: Mixed hyperlipidemia[ICD10: E78.2] Diagnosis: Essential (primary) hypertension[ICD10: I10] Diagnosis: Atrophy of thyroid (acquired)[ICD10: E03.4] Kandi Cabrera MD, [facility] CPT-4: 93706 07/28/2016 ([id number]) 89944 EST. PATIENT, LEVEL IV Diagnosis: Hypothyroidism, unspecified[ICD10: E03.9] Diagnosis: Essential (primary) hypertension[ICD10: I10] Diagnosis: Mixed hyperlipidemia[ICD10: E78.2] Diagnosis: Cellulitis of left lower limb[ICD10: L03.116] Diagnosis: Encounter for immunization[ICD10: Z23] Kandi Cabrera MD, [facility] CPT-4: 97770 01/28/2016 ([id number]) 36613 EST. PATIENT, LEVEL IV Diagnosis: Essential (primary) hypertension[ICD10: I10] Diagnosis: Hypothyroidism, unspecified[ICD10: E03.9] Diagnosis: Diarrhea, unspecified[ICD10: R19.7] Diagnosis: Tobacco use[ICD10: Z72.0] Diagnosis: Tobacco abuse counseling[ICD10: Z71.6] Diagnosis: Other obesity due to excess calories[ICD10: E66.09] Kandi Cabrera MD, [facility] CPT-4: 55669 07/29/2015 ([id number]) 16490 EST. PATIENT, LEVEL IV Diagnosis: Essential (primary) hypertension[ICD10: I10] Diagnosis: Hypothyroidism, unspecified[ICD10: E03.9] Diagnosis: Actinic keratosis[ICD10: L57.0] [facility] CPT- 4: 63946 03/31/2015 ([id number]) OFFICE VISIT, NEW - LEVEL 4 Diagnosis: ESSENTIAL HYPERTENSION[ICD9: 401.9] Diagnosis: HYPOTHYROIDISM[ICD9: 244.9] Diagnosis: HYPERLIPIDEMIA[ICD9: 272.4] Diagnosis: Osteoporosis[ICD9: 733.00] Diagnosis: OSTEOARTH NOS-UNSPEC[ICD9: 715.90] Diagnosis: Sacroiliitis[ICD9: 720.2] [facility] CPT-4: 92136 12/23/2014 Plan of Care Planned Activity Notes Codes Status Date Visit Plan: Hypertension - well controlled - [...] venu daily, call if not improving. 04/03/2018 Patient Education: Patient Medication Summary Completed [...] a conversation about surgical intervention with her Con[employer] B[employer] Operator. 03/06/2018 Appointment: Kandi Cabrera WPtel: [phone] [facility] (15 min) Moderate 03/06/2018 Patient Education: Patient [...] not improving. 02/22/2018 Appointment: Payton Leon WPtel: [facility] (15 min) Moderate 02/22/2018 Patient Education: Patient Medication Summary Completed 02/22/2018 Patient Education: Back Pain Completed 02/22/2018 Visit Plan: Diarrhea - improved - pt advised to avoid seeds , nuts, popcorn, or any other food which has been proven to upset the pt's stomach. 12/13/2017 Appointment: Kandi Cabrera WPtel: [facility] [place] (15 min) Moderate 12/13/2017 Patient Education: Patient Medication Summary Completed 12/13/2017 Visit Plan: Diverticulitis - rx for antibiotic sent to pt' s pharmacy - pt advised to avoid seeds, nuts, popcorn, or any other food which has been proven to upset the pt's stomach. 11/29/2017 Appointment: Kandi Cabrera WPtel: [phone] [facility] [place] (15 min) Moderate 11/29/2017 Patient Education: Patient Medication Summary Completed 11/29/2017 Appointment: Kandi Cabrera WPtel: [phone] [facility] (15 min) Moderate 11/24/2017 Visit Plan: Abdominal [...] 10 days 10/27/2017 Appointment: Kandi Cabrera WPtel: [phone] [facility] (15 min) Moderate 10/27/2017 Patient Education: Patient [...] not improving. 07/26/2017 [phone] (30 min) Complex 07/26/2017 Patient Education: Patient Medication Summary Completed 07/26/2017 Care Plan: Iron Pending 07/26/2017 Care Plan: Referral Order SNOMED-CT : [id number] Pending 07/26/2017 Visit Plan: Hypertension - well [...] exercises recommended. 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 Hanna - I suspect she [...] of cigarettes". 04/11/2017 Appointment: [phone] [place] (15 min) Moderate 04/11/2017 Patient Education: Patient Medication Summary Completed 04/11/2017 Patient Education: Smoking and Tobacco Addiction Completed 04/11/2017 Care Plan: Referral Order SNOMED-CT : [id number] Pending 04/11/2017 Appointment: Kandi Cabrera WPtel: [phone] [facility] (15 min) Moderate 02/14/2017 Appointment: Injection 02/09/2017 Referral: [facility] W[facility]: [phone] Patient informed. Completed 02/09/2017 Patient Education: Patient [...] gait instability 02/07/2017 Appointment: Kandi Cabrera WPtel: [facility] (15 min) Moderate 02/07/2017 Patient Education: Patient Medication Summary Completed 02/07/2017 Patient Education: Smoking and Tobacco Addiction Completed 02/07/2017 Care Plan: Referral Order SNOMED-CT : [id number] Pending 02/07/2017 Visit Plan: Cough - pt [...] uncontrolled. 01/26/2017 Appointment: [phone] (15 min) Moderate 01/26/2017 Patient Education: [...] week. 10/19/2016 App[facility]ment: [phone] (15 min) Moderate 10/19/2016 Patient Education: Patient Medication Summary Completed 10/19/2016 Patient Education: Smoking and Tobacco Addiction Completed 10/19/2016 Patient Education: Hypertension Completed 10/19/2016 Visit Plan: Atrial Fibrillation - pt on chronic anticoagulation and is not optimally rate controlled. Pt is to see her reticle printer tomorrow, will discuss with him her plans [...] of control. 09/22/2016 Appointment: Kandi Cabrera WPtel: [facility] (15 min) Moderate 09/22/2016 Patient Education: Patient [...] of control. 08/31/2016 Appointment: Kandi Cabrera WPtel: [facility] (15 min) Moderate 08/31/2016 Patient Education: Patient Medication Summary Completed 08/31/2016 Patient Education: Smoking and Tobacco Addiction Completed 08/31/2016 Patient Education: Hypertension Completed 08/31/2016 Visit Plan: Sacroiliitis -kenalog injection today in the office-tylenol as directed-heat as directed-xray lumbar spine. Pt is to call if the symptoms do not improve or if they worsen. 08/12/2016 Appointment: Janeen Marsh WPtel: [facility] [place] (30 min) Complex 08/12/2016 Patient Education: Patient Medication Summary Completed 08/12/2016 Patient Education: Smoking and Tobacco Addiction Completed 08/12/2016 Appointment: Payton Leon [facility]el[phone] [facility] - Annual Wellness Visit 07/30/2016 Visit Plan: [...] medications. 07/28/2016 Appointment: [facility]Ptel[phone] [facility] (15 min) Moderate 07/28/2016 Patient Education: Patient [...] shot today 01/28/2016 Appointment: Kandi Cabrera WPtel: [facility] [place] (15 min) Moderate 01/28/2016 Patient Education: [...] activity 07/29/2015 Appointment: [facility]el[phone] [facility] [place] (15 min) Moderate 07/29/2015 Patient [...] levels of control. Actinic keratosis - left anabaptist and left nasal bridge - pt to use efudex on the lesions on the nose and face. 03/31/2015 Appointment: Kandi Cabrera WPtel: [address] [place], [place] [address] [place] (15 min) Moderate 03/31/2015 Patient Education: [...] levels. 12/23/2014 Appointment: [facility]el[phone] [facility] [place] ([place] New Patient 12/23/2014 Patient Education: Patient Medication Summary Completed 12/23/2014 Patient Education: Hypertension Completed 12/23/2014 Care Plan: Referral Order SNOMED-CT : [id number] Ordered 12/23/2014 Referral: External, Ordering Provider Referral Completed Referral: External, Ordering Provider Referral Appointment Requested Referral: Maggi Reaves Referral Initiated Referral: [phone] Referral Appointment Requested Referral: External, Ordering Provider [...] assure normal liver response to medications. . Dyspnea on Exertion - uncontrolled - I have recommended pt to have Pulmonary function studies as well as a referral back to her Concrete Batch Plant Operator - Dr. Hanna - I suspect she [...] I will be completely off of cigarettes". . Hypertension - well controlled - continue [...] a conversation about surgical intervention with her Con[employer] Batch Plant Operator. take 1/2 of an venu or zyrtec [...] venu daily, call if not improving. . Hypothyroidism - pt with chronic hypothyroidism, [...] office if the symptoms are not improving. Will culture your urine to make sure [...] based on previous levels of control. . Diarrhea - improved - pt advised [...] by 1 cigarette daily per week. . Hypertension - well controlled - continue [...] levels of control. Actinic keratosis - left anabaptist and left nasal bridge - pt to use efudex on the lesions on the nose and face. PROBIOTIC - kathy, PhotoMania, lactobacilus /acidophilis brand probiotic - these can [...] cessation Overweight - need to increase activity xray lumbar spine tylenol 2 tabs three times daily lumbar support pillow call tuesday if not better . Sacroiliitis -kenalog injection today in the office-tylenol as directed-heat as directed-xray lumbar spine. Pt is to call if the symptoms do not improve or if they worsen. start on the synthroid 137mcg daily - [...] have DEXA scan, check vitamin D levels. . Diverticulitis - rx for antibiotic sent to pt's pharmacy - pt advised to avoid seeds, nuts, popcorn, or any other food which has been proven to upset the pt's stomach. . Atrial Fibrillation - pt on chronic anticoagulation and is not optimally rate controlled. Pt is to see her reticle printer tomorrow, will discuss with him her plans [...] based on previous levels of control. . Hypertension - well controlled - continue [...] sent to pharmacy flu shot today . Tobacco abuse - chronic condition for [...] - referral to [facility] for gait instability zantac 150mg take twice daily x 2 [...] control. Back pain - stretching exercises recommended. take zantac in the morning and omeprazole [...]
[2018-05-09] MEDS ORDERED: LACTATED RINGERS 1,000 ML IV STA (08:51)
--- OUTSIDE RECORDS SUMMARY | 2018-05-09 08:52 | XMS REPORT | Continuity of Care Document ---
Author Author [facility] Organization [facility] Address Unknown Phone Unavailable Allergies Active Description Code Type Severity Reaction Onset Reported/Identified Relationship to Patient Clinical Status Yes Sulfa (Sulfonamide Antibiotics) [id number] Drug Allergy Mild N/A 2010 Yes Sulfa (Sulfonamide Antibiotics) [id number] Drug Allergy Mild RASH 2017 Yes ciprofloxacin [id number] Drug Allergy Mild A-FIB 05/03/2018 Medications There is no data. Problems Date [...] NOS 11/26/2011 Ot 414.01 CORONARY ATHEROSCLEROSIS OF [place] CORON 11/26/2011 Ot 562.10 DIVERTICULOSIS COLON (W/O [...] NOS 12/30/2011 Ot 414.01 CORONARY ATHEROSCLEROSIS OF [place] CORON 12/30/2011 Ot 530.81 ESOPHAGEAL REFLUX 12/30/2011 [...] MAMMO-MALIGN NEOPLASM OF [place] 08/12/2016 FROYLAN OSORIO [facility] Ot M47.816 SPONDYLOSIS W/O MYELOPATHY OR [...] F17.210 NICOTINE DEPENDENCE, CIGARETTES, UNCOMPL 08/16/2016 LUKE ATNG MD Ot I10 ESSENTIAL (PRIMARY) HYPERTENSION 08/16/2016 [...] E87.1 HYPO-OSMOLALITY AND HYPONATREMIA 08/25/2016 LUKE TANG MD, Ot F17.210 NICOTINE DEPENDENCE, CIGARETTES, UNCOMPL 08/25/2016 LUKE TANG MD Ot F41.9 ANXIETY DISORDER, UNSPECIFIED 08/25/2016 LUKE TANG MD Ot I10 ESSENTIAL (PRIMARY) HYPERTENSION 08/25/2016 LUKE TANG MD Ot I25.10 ATHSCL HEART DISEASE OF [place] CORONARY 08/25/2016 LUKE TANG MD Ot I25.2 [...] OTHER DISEASES OF TH 02/17/2017 LUKE TANG MD, Ot R05 COUGH 02/17/2017 CLYDE DRISCOLL, LUKE Wing Ot Z95.0 PRESENCE OF CARDIAC PACEMAKER 02/25/2017 JAMES FLEMING FREIGHT SORTER Ot R26.9 UNSPECIFIED ABNORMALITIES OF GAIT AND MO 02/25/2017 JAMES FLEMING FREIGHT SORTER Ot R32 UNSPECIFIED URINARY INCONTINENCE 02/25/2017 JAMES FLEMING FREIGHT SORTER Ot R41.3 OTHER AMNESIA 02/25/2017 JAMES FLEMING FREIGHT SORTER Ot R53.1 WEAKNESS 05/12/2017 CLYDE DRISCOLL, LUKE Wing Ot R06.09 OTHER FORMS OF DYSPNEA 05/12/2017 CLYDE DRISCOLL, LUKE Wing Ot Z87.891 PERSONAL HISTORY OF NICOTINE DEPENDENCE 06/02/2017 CLYDE DRISCOLL, LUKE Wing Ot D50.9 IRON DEFICIENCY ANEMIA, UNSPECIFIED 06/03/2017 CLYDE DRISCOLL, LUKE Wing Ot D50.9 IRON DEFICIENCY ANEMIA, UNSPECIFIED 06/03/2017 LUKE TANG MD Ot D50.9 IRON DEFICIENCY ANEMIA, UNSPECIFIED 06/08/2017 LUKE TANG MD Ot D50.9 IRON DEFICIENCY ANEMIA, UNSPECIFIED 06/10/2017 LUKE TANG MD Ot D50.9 IRON DEFICIENCY ANEMIA, UNSPECIFIED 06/13/2017 CLYDE DRISCOLL, LUKE Wing Ot D50.9 IRON DEFICIENCY ANEMIA, UNSPECIFIED 07/18/2017 LUKE TANG MD Ot D50.9 IRON DEFICIENCY ANEMIA, UNSPECIFIED 08/30/2017 [...] Ot F17.210 NICOTINE DEPENDENCE, CIGARETTES, UNCOMPL 11/30/2017 MONALISA MORRISON MD Ot I10 ESSENTIAL (PRIMARY) HYPERTENSION 11/30/2017 MONALISA MORRISON MD Ot 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 INFARCTION 11/30/2017 MONALISA MORRISON MD Ot K57.30 DVRTCLOS OF LG INT W/O PERFORATION OR AB 11/30/2017 MONALISA MORRISON MD Ot R19.7 DIARRHEA, UNSPECIFIED 11/30/2017 MONALISA MORRISON MD, Ot Z79.01 ALF (CURRENT) USE OF ANTICOAGULANT 11/30/2017 MONALISA MORRISON MD Ot Z79.899 OTHER BROOMMAKER (CURRENT) DRUG THERAPY 11/30/2017 MONALISA MORRISON MD Ot Z95.5 PRESENCE OF CORONARY ANGIOPLASTY IMPLANT 01/31/2018 LUKE TANG MD Ot Z29.8 ENCOUNTER FOR OTHER SPECIFIED PROPHYLACT 03/01/2018 ULKE TANG MD Ot D62 ACUTE POSTHEMORRHAGIC ANEMIA 03/01/2018 LUKE TANG MD Ot E03.9 HYPOTHYROIDISM, UNSPECIFIED 03/01/2018 LUKE TANG MD Ot E78.00 PURE HYPERCHOLESTEROLEMIA, UNSPECIFIED 03/01/2018 LUKE TANG MD Ot F17.210 NICOTINE DEPENDENCE, CIGARETTES, UNCOMPL 03/01/2018 LUKE TANG MD Ot I10 ESSENTIAL (PRIMARY) HYPERTENSION 03/01/2018 LUKE TANG MD Ot I25.10 ATHSCL HEART DISEASE OF [place] CORONARY 03/01/2018 LUKE TANG MD, Ot 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 INFARCTION 03/01/2018 LUKE TANG MD Ot I35.0 NONRHEUMATIC AORTIC (VALVE) STENOSIS 03/01/2018 LUKE TANG MD, Ot I48.0 PAROXYSMAL ATRIAL FIBRILLATION 03/01/2018 LUKE TANG MD Ot K21.9 GASTRO-ESOPHAGEAL REFLUX DISEASE WITHOUT 03/01/2018 LUKE TANG MD, Ot K92.2 GASTROINTESTINAL HEMORRHAGE, UNSPECIFIED 03/01/2018 LUKE TANG MD Ot M19.90 UNSPECIFIED OSTEOARTHRITIS, UNSPECIFIED 03/01/2018 LUKE TANG MD, Ot N39.0 URINARY TRACT INFECTION, SITE NOT SPECIF 03/01/2018 LUKE TANG MD, Ot Z79.01 BROOMMAKER (CURRENT) USE OF ANTICOAGULANT 03/01/2018 LUKE TANG MD Ot Z90.49 ACQUIRED ABSENCE OF OTHER SPECIFIED PART 03/01/2018 LUKE TANG MD Ot Z90.710 ACQUIRED ABSENCE OF BOTH CERVIX AND UTER 03/01/2018 LUKE TANG MD Ot Z95.0 PRESENCE OF CARDIAC PACEMAKER 03/01/2018 LUKE TANG MD Ot Z95.5 PRESENCE OF CORONARY ANGIOPLASTY IMPLANT 03/01/2018 LUKE TANG MD Ot D62 ACUTE POSTHEMORRHAGIC ANEMIA 03/01/2018 LUKE TANG MD Ot E03.9 HYPOTHYROIDISM, UNSPECIFIED 03/01/2018 LUKE TANG MD Ot E78.00 PURE HYPERCHOLESTEROLEMIA, UNSPECIFIED 03/01/2018 LUKE TANG MD, Ot E78.5 HYPERLIPIDEMIA, UNSPECIFIED 03/01/2018 LUKE TANG MD Ot F17.210 NICOTINE DEPENDENCE, CIGARETTES, UNCOMPL 03/01/2018 LUKE TANG MD Ot I10 ESSENTIAL (PRIMARY) HYPERTENSION 03/01/2018 LUKE TANG MD, Ot I25.10 ATHSCL HEART DISEASE OF [place] CORONARY 03/01/2018 LUKE TANG MD, Ot 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 INFARCTION 03/01/2018 LUKE TANG MD Ot I35.0 NONRHEUMATIC AORTIC (VALVE) STENOSIS 03/01/2018 LUKE TANG MD Ot I48.0 PAROXYSMAL ATRIAL FIBRILLATION 03/01/2018 LUKE TANG MD, Ot K21.9 GASTRO-ESOPHAGEAL REFLUX DISEASE WITHOUT 03/01/2018 LUKE TANG MD Ot K25.4 CHRONIC OR UNSPECIFIED GASTRIC ULCER WIT 03/01/2018 LUKE TANG MD Ot K44.9 DIAPHRAGMATIC HERNIA WITHOUT OBSTRUCTION 03/01/2018 LUKE TANG MD, Ot K92.2 GASTROINTESTINAL HEMORRHAGE, UNSPECIFIED 03/01/2018 LUKE TANG MD Ot M19.90 UNSPECIFIED OSTEOARTHRITIS, UNSPECIFIED 03/01/2018 LUKE TANG MD, Ot N39.0 URINARY TRACT INFECTION, SITE NOT SPECIF 03/01/2018 LUKE TANG MD, Ot Z79.01 BROOMMAKER (CURRENT) USE OF ANTICOAGULANT 03/01/2018 LUKE TANG MD Ot Z90.49 ACQUIRED ABSENCE OF OTHER SPECIFIED PART 03/01/2018 LUKE TANG MD Ot Z90.710 ACQUIRED ABSENCE OF BOTH CERVIX AND UTER 03/01/2018 LUKE TANG MD Ot Z95.0 PRESENCE OF CARDIAC PACEMAKER 03/01/2018 LUKE TANG MD Ot Z95.5 PRESENCE OF CORONARY ANGIOPLASTY IMPLANT 03/06/2018 LUKE TANG MD Ot Z29.8 ENCOUNTER FOR OTHER SPECIFIED PROPHYLACT 03/20/2018 LUKE TANG MD, Ot M81.0 AGE-RELATED OSTEOPOROSIS W/O CURRENT PAT 04/06/2018 LUKE TANG MD, Ot M81.0 AGE-RELATED OSTEOPOROSIS W/O CURRENT PAT 04/10/2018 LUKE TANG MD, Ot Z29.8 ENCOUNTER FOR OTHER SPECIFIED PROPHYLACT 05/03/2018 CARLOS JACOBS DO, Ot Z01.818 ENCOUNTER FOR OTHER PREPROCEDURAL EXAMIN 05/03/2018 LUKE TANG MD Ot D50.9 IRON DEFICIENCY ANEMIA, UNSPECIFIED 05/03/2018 CARLOS JACOBS DO Ot Z01.818 ENCOUNTER FOR OTHER PREPROCEDURAL EXAMIN 05/03/2018 CARLOS JACOBS DO, Ot Z01.818 ENCOUNTER FOR OTHER PREPROCEDURAL EXAMIN 05/03/2018 CARLOS JACOBS DO Ot Z01.818 ENCOUNTER FOR OTHER PREPROCEDURAL EXAMIN 05/04/2018 CARLOS JACOBS DO, Ot Z01.818 ENCOUNTER FOR OTHER PREPROCEDURAL EXAMIN Procedures Code Description Performed By Performed On 48.24 ENDOSCOPIC BIOPSY OF RECTUM 11/25/2011 51.23 LAPAROSCOPIC CHOLECYSTECTOMY 11/25/2011 45.16 ESOPHAGOGASTRODUODENOSCOPY [ EGD] W/CLOSE 12/28/2011 [id number] INSPECTION OF UPPER INTESTINAL TRACT, EN 02/28/2018 Results Test Result Range Complete blood count [...] resistant Staphylococcus aureus (MRSA) screening culture NEG [facility] Complete blood count (CBC) with automated white [...] (T4) free measurement (mass/volume) 1.24 ng/dL 0.70-1.48 RED CELLS LEUKO REDUCED AS1 - 02/26/18 20:45 RED CELLS LEUKO REDUCED AS1 TRANSFUSED 02/27/18 1208 NRG Blood type T Indirect antibody screen panel - 02/26/18 20:45 ABO+Rh group BP NRG Transfusion band number [id number] NRG Blood group antibody screen NEGATIVE NRG Complete blood count (CBC) with automated white blood cell (WBC) differential - 02/27/18 03:04 Blood leukocytes automated count (number/volume) 7.6 10*3/uL 4.3-11.0 Blood erythrocytes automated count (number/volume) 2.38 10*6/uL 4.35-5.85 Venous blood hemoglobin measurement (mass/volume) 7.0 g/dL 11.5-16.0 Blood hematocrit (volume fraction) 22 % 35-52 Automated erythrocyte mean corpuscular volume 92 [foz_us] 80-99 Automated erythrocyte mean corpuscular hemoglobin (mass per erythrocyte) 29 pg 25-34 Automated erythrocyte mean corpuscular hemoglobin concentration measurement ( mass/volume) 32 g/dL 32-36 Automated erythrocyte distribution width ratio 14.7 % 10.0-14.5 Automated blood platelet count (count/volume) 410 10*3/uL 130-400 Automated blood platelet mean volume measurement 9.0 [foz_us] 7.4-10.4 Automated blood neutrophils/100 leukocytes 63 % 42-75 Automated blood lymphocytes/100 leukocytes 25 % 12-44 Blood monocytes/100 leukocytes 11 % 0-12 Automated blood eosinophils/100 leukocytes 1 % 0-10 Automated blood basophils/100 leukocytes 1 % 0-10 Blood neutrophils automated count (number/volume) 4.8 10*3 1.8-7.8 Blood lymphocytes automated count (number/volume) 1.9 10*3 1.0-4.0 Blood monocytes automated count (number/volume) 0.8 10*3 0.0-1.0 Automated eosinophil count 0.1 10*3/uL 0.0-0.3 Automated blood basophil count (count/volume) 0.0 10*3/uL 0.0-0.1 Whole blood basic metabolic panel - 02/27/18 03:04 Serum or plasma sodium measurement (moles/volume) 136 mmol/L 135-145 Serum or plasma potassium measurement (moles/volume) 3.8 mmol/L 3.6-5.0 Serum or plasma chloride measurement (moles/volume) 107 mmol/L 98-107 Carbon dioxide 21 mmol/L 21-32 Serum or plasma anion gap determination (moles/volume) 8 mmol/L 5-14 Serum or plasma urea nitrogen measurement (mass/volume) 23 mg/dL 7-18 Serum or plasma creatinine measurement (mass/volume) 0.84 mg/dL 0.60-1.30 Serum or plasma urea nitrogen/creatinine mass ratio 27 NRG Serum or plasma creatinine measurement with calculation of estimated glomerular filtration rate > NRG Serum or plasma glucose measurement (mass/volume) 90 mg/dL 70-105 Serum or plasma calcium measurement (mass/volume) 8.3 mg/dL 8.5-10.1 Lipid 1996 panel - 02/27/18 03:04 Serum or plasma triglyceride measurement (mass/volume) 143 mg/dL <150 Serum or plasma cholesterol measurement (mass/volume) 101 mg/dL < 200 Serum or plasma cholesterol in HDL measurement (mass/volume) 27 mg/ dL 40-60 Cholesterol in LDL [mass/volume] in serum or plasma by direct assay 55 mg/dL 1-129 Serum or plasma cholesterol in VLDL measurement (mass/volume) 29 mg/ dL 5-40 Complete urinalysis with reflex to culture - 02/27/18 03:41 Urine color determination YELLOW NRG Urine clarity [...] urobilinogen measurement by automated test strip (mass/volume) 1 mg/dL NORMAL Urine leukocyte esterase detection by dipstick 1+ NEGATIVE Automated urine sediment erythrocyte count by microscopy (number/high power field) NONE NRG Automated urine sediment leukocyte count by microscopy (number/high power field ) RARE NRG Bacteria detection in urine sediment by light microscopy NEGATIVE NRG Squamous epithelial cells detection in urine sediment by light microscopy RARE NRG Crystals detection in urine sediment by light microscopy NONE NRG Casts detection in urine sediment by light microscopy NONE NRG Mucus detection in urine sediment by light microscopy NEGATIVE NRG Complete urinalysis with reflex to culture NO NRG Whole blood hemoglobin and hematocrit panel - 02/27/18 15:05 Venous blood hemoglobin measurement (mass/volume) 10.3 g/dL 11.5-16.0 Blood hematocrit (volume fraction) 30 % 35-52 Serum or plasma troponin i.cardiac measurement (mass/volume) - 02/27/18 15:05 Serum or plasma troponin i.cardiac measurement (mass/volume) < ng/ mL <0.30 Complete blood count (CBC) with automated white blood cell (WBC) differential - 02/28/18 03:10 Blood leukocytes automated count (number/volume) 6.9 10*3/uL 4.3-11.0 Blood erythrocytes automated count (number/volume) 3.52 10*6/uL 4.35-5.85 Venous blood hemoglobin measurement (mass/volume) 10.5 g/dL 11.5-16.0 Blood hematocrit (volume fraction) 32 % 35-52 Automated erythrocyte mean corpuscular volume 92 [foz_us] 80-99 Automated erythrocyte mean corpuscular hemoglobin (mass per erythrocyte) 30 pg 25-34 Automated erythrocyte mean corpuscular hemoglobin concentration measurement ( mass/volume) 33 g/dL 32-36 Automated erythrocyte distribution width ratio 14.6 % 10.0-14.5 Automated blood platelet count (count/volume) 397 10*3/uL 130-400 Automated blood platelet mean volume measurement 9.2 [foz_us] 7.4-10.4 Automated blood neutrophils/100 leukocytes 61 % 42-75 Automated blood lymphocytes/100 leukocytes 21 % 12-44 Blood monocytes/100 leukocytes 15 % 0-12 Automated blood eosinophils/100 leukocytes 3 % 0-10 Automated blood basophils/100 leukocytes 1 % 0-10 Blood neutrophils automated count (number/volume) 4.2 10*3 1.8-7.8 Blood lymphocytes automated count (number/volume) 1.5 10*3 1.0-4.0 Blood monocytes automated count (number/volume) 1.0 10*3 0.0-1.0 Automated eosinophil count 0.2 10*3/uL 0.0-0.3 Automated blood basophil count (count/volume) 0.0 10*3/uL 0.0-0.1 Whole blood basic metabolic panel - 02/28/18 03:10 Serum or plasma sodium measurement (moles/volume) 137 mmol/L 135-145 Serum or plasma potassium measurement (moles/volume) 3.6 mmol/L 3.6-5.0 Serum or plasma chloride measurement (moles/volume) 106 mmol/L 98-107 Carbon dioxide 21 mmol/L 21-32 Serum or plasma anion gap determination (moles/volume) 10 mmol/L 5-14 Serum or plasma urea nitrogen measurement (mass/volume) 14 mg/dL 7-18 Serum or plasma creatinine measurement (mass/volume) 0.76 mg/dL 0.60-1.30 Serum or plasma urea nitrogen/creatinine mass ratio 18 NRG Serum or plasma creatinine measurement with calculation of estimated glomerular filtration rate > NRG Serum or plasma glucose measurement (mass/volume) 82 mg/dL 70-105 Serum or plasma calcium measurement (mass/volume) 8.8 mg/dL 8.5-10.1 Magnesium - 02/28/18 03:10 Magnesium 1.9 mg/dL 1.8-2.4 Complete blood count (CBC) with automated white blood cell (WBC) differential - 03/01/18 04:15 Blood leukocytes automated count (number/volume) 7.5 10*3/uL 4.3-11.0 Blood erythrocytes automated count (number/volume) 3.49 10*6/uL 4.35-5.85 Venous blood hemoglobin measurement (mass/volume) 10.8 g/dL 11.5-16.0 Blood hematocrit (volume fraction) 32 % 35-52 Automated erythrocyte mean corpuscular volume 91 [foz_us] 80-99 Automated erythrocyte mean corpuscular hemoglobin (mass per erythrocyte) 31 pg 25-34 Automated erythrocyte mean corpuscular hemoglobin concentration measurement ( mass/volume) 34 g/dL 32-36 Automated erythrocyte distribution width ratio 14.2 % 10.0-14.5 Automated blood platelet count (count/volume) 376 10*3/uL 130-400 Automated blood platelet mean volume measurement 8.9 [foz_us] 7.4-10.4 Automated blood neutrophils/100 leukocytes 68 % 42-75 Automated blood lymphocytes/100 leukocytes 15 % 12-44 Blood monocytes/100 leukocytes 15 % 0-12 Automated blood eosinophils/100 leukocytes 2 % 0-10 Automated blood basophils/100 leukocytes 0 % 0-10 Blood neutrophils automated count (number/volume) 5.1 10*3 1.8-7.8 Blood lymphocytes automated count (number/volume) 1.1 10*3 1.0-4.0 Blood monocytes automated count (number/volume) 1.1 10*3 0.0-1.0 Automated eosinophil count 0.2 10*3/uL 0.0-0.3 Automated blood basophil count (count/volume) 0.0 10*3/uL 0.0-0.1 Serum or plasma renal function panel (Na, K, Cl, CO2, BUN, Cr, glucose,Ca, phos , alb) - 03/01/18 04:15 Serum or plasma sodium measurement (moles/volume) 136 mmol/L 135-145 Serum or plasma potassium measurement (moles/volume) 3.4 mmol/L 3.6-5.0 Serum or plasma chloride measurement (moles/volume) 104 mmol/L 98-107 Carbon dioxide 22 mmol/L 21-32 Serum or plasma anion gap determination (moles/volume) 10 mmol/L 5-14 Serum or plasma urea nitrogen measurement (mass/volume) 12 mg/dL 7-18 Serum or plasma creatinine measurement (mass/volume) 0.71 mg/dL 0.60-1.30 Serum or plasma urea nitrogen/creatinine mass ratio 17 NRG Serum or plasma creatinine measurement with calculation of estimated glomerular filtration rate > NRG Serum or plasma glucose measurement (mass/volume) 102 mg/dL 70-105 Serum or plasma calcium measurement (mass/volume) 8.9 mg/dL 8.5-10.1 Serum or plasma albumin measurement (mass/volume) 3.2 g/dL 3.2-4.5 Serum or plasma phosphate measurement (mass/volume) 2.2 mg/dL 2.3-4.7 Automated blood complete blood count (hemogram) panel - 03/01/18 12:45 Blood leukocytes automated count (number/volume) 7.1 10*3/uL 4.3-11.0 Blood erythrocytes automated count (number/volume) 3.68 10*6/uL 4.35-5.85 Venous blood hemoglobin measurement (mass/volume) 11.0 g/dL 11.5-16.0 Blood hematocrit (volume fraction) 34 % 35-52 Automated erythrocyte mean corpuscular volume 91 [foz_us] 80-99 Automated erythrocyte mean corpuscular hemoglobin (mass per erythrocyte) 30 pg 25-34 Automated erythrocyte mean corpuscular hemoglobin concentration measurement ( mass/volume) 33 g/dL 32-36 Automated erythrocyte distribution width ratio 14.4 % 10.0-14.5 Automated blood platelet count (count/volume) 416 10*3/uL 130-400 Automated blood platelet mean volume measurement 8.7 [foz_us] 7.4-10.4 Encounters ACCT No. Visit Date/Time Discharge Status Pt. Type Provider Facility Loc./Unit Complaint [id number] 05/03/2018 14:57:00 05/03/2018 23:59:59 CLS Outpatient LUKE TANG MD [facility]3 WELLNESS [id number] 05/03/2018 14:16:00 05/03/2018 16:01:00 DIS Outpatient CARLOS JACOBS DO [facility] PREOP EGD [id number] 03/29/2018 14:54:00 04/07/2018 00:01:00 DIS Outpatient LUKE TANG MD [facility] WELLNESS [id number] 03/17/2018 13:18:00 03/17/2018 23:59:59 CLS Outpatient LUKE TANG MD [facility] M81.0 [id number] 02/10/2018 15:03:00 03/03/2018 00:01:00 DIS Outpatient LUKE TANG MD [facility] WELLNESS [id number] 02/26/2018 20:24:00 03/01/2018 13:35:00 DIS Inpatient LUKE TANG MD [facility] ICU AFIB W/RVR,ANEMIA, HEMOCCULT,GI BLEED [id number] 01/27/2018 16:13:00 01/27/2018 00:01:00 DIS Outpatient LUKE TANG MD [facility] WELLNESS [id number] 12/19/2017 15:05:00 12/19/2017 23:59:59 CLS Outpatient LUKE TANG MD [facility] WELLNESS [id number] 11/28/2017 09:34:00 11/28/2017 23:59:59 CLS Preadmit MONALISA MORRISON MD [facility] RAD DIVERTICULITIS [id number] 11/28/2017 07:30:00 11/28/2017 12:48:00 DIS Outpatient MONALISA MORRISON MD [facility] ENDO DIARRHEA [id number] 11/16/2017 16:44:00 11/23/2017 00:01:00 DIS Outpatient LUKE TANG MD [facility] CR3 WELLNESS [id number] 11/21/2017 05:42:00 11/21/2017 15:12:00 DIS Outpatient MONALISA MORRISON MD [facility] PREOP COLONOSCOPY [id number] 10/21/2017 15:10:00 10/23/2017 00:01:00 DIS Outpatient LUKE TANG MD [facility] WELLNESS [id number] 09/21/2017 15:19:00 09/21/2017 00:01:00 DIS Outpatient LUKE TANG MD [facility] WELLNESS [id number] 08/31/2017 03:16:00 08/31/2017 23:59:59 CLS Preadmit LUKE TANG MD [facility] IRON DEFICIENCY ANEMIA [id number] 06/13/2017 12:48:00 08/30/2017 00:01:00 DIS Outpatient LUKE TANG MD [facility] IRON DEFICIENCY ANEMIA [id number] 04/20/2017 13:59:00 04/20/2017 23:59:59 CLS Outpatient LUKE TANG MD [facility] RT HX OF TOBACCO USE [id number] 02/02/2017 10:16:00 02/02/2017 23:59:59 CLS Outpatient JAMES FLEMING APRN [facility] RAD GAIT IMBALANCE [id number] 01/26/2017 13:09:00 01/26/2017 23:59:59 CLS Outpatient LUKE TANG MD [facility] RAD COUGH [id number] 08/23/2016 01:55:00 08/25/2016 18:40:00 DIS Inpatient LUKE TANG MD [facility] ICU A-FIB W/RVR, CHEST PAIN [id number] 08/15/2016 15:42:00 08/16/2016 15:30:00 DIS Inpatient LUKE TANG MD [facility] 4TH WEAKNESS,HYPONATREMIA, UTI [id number] 08/12/2016 14:23:00 08/12/2016 23:59:59 CLS Outpatient FROYLAN OSORIO [facility] RAD LOW BACK PAIN [id number] 07/19/2013 15:25:00 07/19/2013 23:59:59 CLS Outpatient JEREMIAH MOTTA MD [facility] RAD SCREENING [id number] 05/09/2018 09:30:00 PEN Preadmit CARLOS JACOBS DO [facility] ENDO HX UPPER GI BLEED [id number] 07/25/2014 11:10:00 Document Registration [id number] 06/12/2012 10:20:00 Document Registration [id number] 12/27/2011 13:28:00 Document Registration [id number] 12/13/2011 09:03:00 Document Registration [id number] 12/08/2011 13:33:00 Document Registration [id number] 11/22/2011 15:26:00 Document Registration [id number] 04/14/2011 16:49:00 Document Registration [id number] 12/28/2016 21:08:40 12/28/2016 23:59:59 CLS Outpatient [id number] 04/11/2017 11:36:35 04/11/2017 23:59:59 CLS Outpatient
[2018-05-09] MEDS ORDERED: LACTATED RINGERS 1,000 ML IV ONE (08:54)
[2018-05-09] MEDS ORDERED: HURRICAINE EXT TUBE (BENZOCAINE) XX PRN (09:00)
[2018-05-09 09:06] VITALS: BP 147/69
[2018-05-09] MEDS ORDERED: proPOfol 200 MG/20 ML (DIPRIVAN) VIAL IV ONE (09:53)
--- NOTE | 2018-05-09 10:20 | Progress Note-Post Operative ---
Post-Operative Progess Note Surgeon (s)/Computer Repair Technician (s) Surgeon CARLOS JACOBS DO Computer Repair Technician: na Pre-Operative Diagnosis pyloric ulcer, hx gi bleed Post-Operative Diagnosis hiatal hernia Procedure & Operative Findings Date of Procedure 05/09/18 Procedure Performed/Findings egd c biopsy Anesthesia Type per smokehouse operator Estimated Blood Loss Estimated blood loss (mL): none Specimens/Packing Specimens Removed antrum CARLOS JACOBS DO May 09, 2018 10:20
--- NOTE | 2018-05-09 10:21 | Discharge Inst-Simple/Standard ---
Discharge Inst-Standard Discharge Medications New, Converted or Re-Newed RX: RX on Chart Patient Instructions/Follow Up Plan of Care/Instructions/FU: 2 weeks Elroy Activity as Tolerated: Yes Discharge Diet: Regular Diet CARLOS JACOBS DO May 09, 2018 10:21
[2018-05-09 10:25] VITALS: BP 119/61
[2018-05-09 10:55] VITALS: BP 135/62
--- NOTE | 2018-05-09 14:07 | OPERATIVE REPORT ---
DATE OF SERVICE: 05/09/2018 PREOPERATIVE DIAGNOSES: 1. Pyloric ulcer. 2. History of gastrointestinal bleed. POSTOPERATIVE DIAGNOSIS: Hiatal hernia. PROCEDURE: EGD with biopsy. SURGEON: Carlos Abbasi DO ANESTHESIA: Per RECOVERY OPERATOR HELPER. ESTIMATED BLOOD LOSS: None. COMPLICATIONS: None. INDICATIONS: The patient is an 82-year-old female with history of GI bleed and pyloric ulcer. She was recommended to have repeat endoscopy to reexam the area. She understands risks and benefits of procedure and wished to proceed with procedure. Consent was signed on the chart. DESCRIPTION OF PROCEDURE: The patient was taken to the endoscopy suite, placed in left lateral recumbent position. Timeout was performed. Scope was inserted down the mouth, down the esophagus into the stomach and into the duodenum without difficulty. There were no polyps, mass or ulceration of the duodenum. Scope was slowly retracted back into the stomach and through the pyloric area. There is no evidence of any ulcer or any abnormality at this time. Scope was continuously retracted the stomach where it was further insufflated. Biopsy of the antrum was obtained. There are some slight erythematous changes. Scope was then retroflexed noting a small hiatal hernia. The scope was then returned to its normal position, slowly withdrawn to the distal esophagus. There are no polyps, mass or ulceration of the distal esophagus. Scope was slowly retracted back until completely removed, noting no other pathology. RECOMMENDATIONS: The patient will continue on current medications. We will follow up in 2 weeks to discuss pathology results and see how she is doing at that time. Job ID: [id number] DocumentID: [id number] Dictated Date: 05/09/2018 10:25:12 Marketing Developer Date: 05/09/2018 14:06:48 Dictated By: CARLOS ABBASI DO
--- NOTE | 2018-05-09 14:36 | Anesthesia-General Post-Op ---
MAC Patient Condition Mental Status/LOC: Same as Preop Cardiovascular: Satisfactory Nausea/Vomiting: Absent Respiratory: Satisfactory Pain: Controlled Complications: Absent Post Op Complications Complications None Follow Up Care/Instructions Patient Instructions None needed. Anesthesiology Discharge Order Discharge Order Patient is doing well, no complaints, stable vital signs, no apparent adverse anesthesia problems. No complications reported per nursing. YASMEEN MIKE CRNA May 09, 2018 14:36
== END 2018-05-09 11:05 | disposition home or self-care (01) ==
LOC: ENDO 08:39
PROVIDERS: ATTEND Surgery
DX: K21.9 Gastro-esophageal reflux disease without esophagitis (principal); K44.9 Diaphragmatic hernia without obstruction or gangrene; Z87.11 Personal history of peptic ulcer disease; I10 Essential (primary) hypertension; I48.91 Unspecified atrial fibrillation; F17.210 Nicotine dependence, cigarettes, uncomplicated; Z95.0 Presence of cardiac pacemaker; Z79.01 Long term (current) use of anticoagulants; Z79.899 Other long term (current) drug therapy

== ENCOUNTER → 2018-05-24 | Outpatient (RCR) | payer MEDICARE | END | disposition home or self-care (01) | LOC: CR3 04-24 14:45 | PROVIDERS: ATTEND Family Medicine | DX: Z29.8 Encounter for other specified prophylactic measures (principal) ==

== ENCOUNTER 2018-05-26 13:00 | Outpatient (RCR) | payer MEDICARE ==
[~2018-05-26 13:00] MED LIST changes: -ALEN70TA47 PO; +ALEN70TA5 PO; -DILT120C63 PO; +DILT120C94 PO; +METR-145 PO; -METR-197 PO
[2018-06-16] MEDS ORDERED: PANT40TA3 PO (10:24)
== END 2018-06-25 | disposition home or self-care (01) ==
LOC: CR3 13:00
PROVIDERS: ATTEND Family Medicine
DX: Z29.8 Encounter for other specified prophylactic measures (principal)

== ENCOUNTER 2018-06-02 08:37 | Outpatient (RCR) | payer MEDICARE ==
[2018-06-02] VITALS (7 sets, daily range): BP systolic 122–141; BP diastolic 54–71
[~2018-06-02] VITALS: Ht 157.5 cm; Wt 64.6 kg
[~2018-06-02 08:37] MED LIST changes: +ALEN70TA47 PO; -ALEN70TA5 PO; +DILT120C63 PO; -DILT120C94 PO; -METR-145 PO; +METR-197 PO
[2018-06-02] MEDS ORDERED: NS IV 500 ML 500 ML ONE (08:38)
--- NOTE | 2018-06-02 08:51 | NUR ---
pt refused tylenol. she reports she took tylenol 1000mg po at home at 0745.
[2018-06-02] MEDS ORDERED: NS IV 500 ML 500 ML IV ONE (09:00)
[2018-06-02] MEDS ORDERED: diphenhydrAMINE 25 MG TAB (BENADRYL) PO ONE (09:00)
[2018-06-02] MEDS ORDERED: ACETAMINOPHEN 500 MG TAB (TYLENOL) PO ONE (09:00)
[2018-06-02] MEDS ORDERED: FUROSEMIDE 40 MG/4 ML INJ (LASIX) IVP NR (09:00)
[2018-06-02 15:46] LABS: HEMOGLOBIN 9.7 G/DL (11.5-16.0)
== END 2018-06-02 15:55 | disposition home or self-care (01) ==
LOC: SDC 08:37
PROVIDERS: ATTEND Nurse Practitioner Family
DX: D64.9 Anemia, unspecified (principal)
CPT/HCPCS: 36415; 36430; 85014; 85018; 86850; 86900; 86901; 86920; 96374

== ENCOUNTER 2018-06-16 10:15 | Outpatient (CLI) | payer MEDICARE ==
[~2018-06-16] VITALS: Ht 157.5 cm; Wt 64.6 kg
[~2018-06-16 10:15] MED LIST changes: -ALEN70TA47 PO; +ALEN70TA5 PO; -DILT120C63 PO; +DILT120C94 PO; +METR-145 PO; -METR-197 PO
[2018-06-16] MEDS ORDERED: PANT40TA3 PO (10:24)
== END 2018-06-16 10:25 | disposition home or self-care (01) ==
LOC: PREOP 10:15
PROVIDERS: ATTEND Surgery
DX: Z01.818 Encounter for other preprocedural examination (principal)

== ENCOUNTER 2018-06-20 11:21 | Day surgery (SDC) | payer MEDICARE ==
[~2018-06-20] VITALS: Ht 157.5 cm; Wt 64.6 kg
[~2018-06-20 11:21] MED LIST changes: +PANT40TA3 PO
[2018-06-20] MEDS ORDERED: LACTATED RINGERS 1,000 ML IV ONE (11:24)
[2018-06-20] MEDS ORDERED: LACTATED RINGERS 1,000 ML IV STA (11:53)
[2018-06-20 11:56] VITALS: BP 134/77
[2018-06-20] MEDS ORDERED: PROPOFOL INJECTION 50 ML IV ONE (12:00)
--- NOTE | 2018-06-20 12:06 | Progress Note-Pre Operative ---
Pre-Operative Progress Note H&P Reviewed The H&P was reviewed, patient examined and patient with some blood per rectum. She understands risks and benefits of colonoscopy and wishes to proceed. Date Seen by Provider: Jun 20, 2018 Time Seen by Provider: 12:05 Date H&P Reviewed: Jun 20, 2018 Time H&P Reviewed: 12:05 Pre-Operative Diagnosis: iron def anemia, blood per rectum CARLOS JACOBS DO Jun 20, 2018 12:06
[2018-06-20] MEDS ORDERED: proPOfol 200 MG/20 ML (DIPRIVAN) VIAL IV ONE (12:43)
--- NOTE | 2018-06-20 13:31 | Progress Note-Post Operative ---
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
--- NOTE | 2018-06-20 13:33 | Discharge Inst-Simple/Standard ---
Discharge Inst-Standard Patient Instructions/Follow Up Plan of Care/Instructions/FU: Elroy tomorrow. Activity as Tolerated: Yes Discharge Diet: Regular Diet CARLOS JACOBS DO Jun 20, 2018 13:33
[2018-06-20 13:50] VITALS: BP 136/80
[2018-06-20 14:35] VITALS: BP 138/65
[2018-06-20 14:41] VITALS: BP 138/65
--- NOTE | 2018-06-20 19:07 | OPERATIVE REPORT ---
DATE OF SERVICE: 06/20/2018 PREOPERATIVE DIAGNOSIS: Iron deficiency anemia, blood per rectum. 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 PROCEDURE: Colonoscopy and EGD. ANESTHESIA: Per PRODUCTION CONTROL COORDINATING CLERK. ESTIMATED BLOOD LOSS: None. COMPLICATIONS: None. INDICATIONS: The patient is an 82-year-old female with iron deficiency anemia. She is also having some blood per rectum. She understands risks and benefits of a colonoscopy. The patient had no definite source; therefore got consent for EGD from . They understand all risks and benefits. DESCRIPTION OF PROCEDURE: The patient was taken to the endoscopy suite, placed in left lower recumbent position. Timeout was performed. Digital rectal exam was performed. There were no palpable polyps, masses or ulcerations. Scope was inserted in the rectum and advanced all the way to the cecum with minimal difficulty. Throughout the entire colon, was a small amount of thin blood. The scope was then slowly withdrawn with irrigation and suction. There were no polyps, masses or ulcerations in the cecum, ascending, transverse and descending colon. Through the right colon, there was some very faint small questionable AV malformations with some slight bleeding or just from over distention of the colon. There are no polyps, masses or ulcerations visualized within these areas. Within the sigmoid colon, there was a moderate amount of diverticulosis present. There is no source of active bleeding throughout these areas. No polyps, masses or ulcerations. Scope was drawn back into the rectum where it was inserted and retracted multiple times and not seeing any further pathology. Consent was obtained for EGD. Scope was inserted in mouth, down the esophagus, stomach and into the duodenum without difficulty. There are no polyps, masses, ulcerations or any bleeding within the duodenum. No evidence of bleeding. Scope was then slowly retracted back into the stomach for further insufflated. No polyps, masses or ulcerations. No erythematous changes. Scope was retroflexed noting a small hiatal hernia. No other pathology noted. Scope was returned to its normal position, slowly withdrawn to the distal esophagus, which had no polyps, masses or ulcerations. Scope was slowly retracted back to completely remove, noting no other pathology. The patient tolerated the procedures well without any complications. She was taken to recovery room in stable condition. RECOMMENDATIONS: I think for next, get a capsule endoscopy. We will have her see tomorrow to arrange this. Would keep her off of her Eliquis at this time as she already has. Further recommendations pending capsule endoscopy. The patient also may need repeat colonoscopy if continues. Job ID: [id number] DocumentID: [id number] Dictated Date: 06/20/2018 13:37:20 Milking Machine Technician Date: 06/20/2018 19:07:11 Dictated By: CARLOS JACOBS DO
== END 2018-06-20 14:43 | disposition home or self-care (01) ==
LOC: ENDO 11:21
PROVIDERS: ATTEND Surgery
DX: K62.5 Hemorrhage of anus and rectum (principal); D50.9 Iron deficiency anemia, unspecified; K57.30 Diverticulosis of large intestine without perforation or abscess without bleeding; K44.9 Diaphragmatic hernia without obstruction or gangrene; I48.0 Paroxysmal atrial fibrillation; I10 Essential (primary) hypertension; E78.5 Hyperlipidemia, unspecified; I25.10 Atherosclerotic heart disease of native coronary artery without angina pectoris; I35.0 Nonrheumatic aortic (valve) stenosis; Z79.01 Long term (current) use of anticoagulants; Z79.899 Other long term (current) drug therapy

== ENCOUNTER 2018-07-20 12:55 | Outpatient (CLI) | payer MEDICARE ==
[~2018-07-20] VITALS: Ht 157.5 cm; Wt 64.6 kg
[2018-07-20] MEDS ORDERED: IRON DEXTRAN 25 MG/NS 6.25 ML TOTAL VOLUME IV ONE ×3 (13:30)
[2018-07-20] MEDS ORDERED: diphenhydrAMINE 50 MG/ML INJ (BENADRYL) IV ONE (13:30)
[2018-07-20] MEDS ORDERED: ACETAMINOPHEN 325 MG TABLET PO ONE (13:30)
[2018-07-20] MEDS ORDERED: IRON DEXTRAN 1,000 MG/NS 250 ML IVPB IV ONE ×2 (13:30)
[2018-07-20] MEDS ORDERED: methylPREDNISolone 125 MG (Solu-MEDROL) VIAL IV ONE (13:30)
--- NOTE | 2018-07-20 14:20 | NUR ---
1405 INFED TEST DOSE INITIATED PER MININFUSER. 1420: TEST DOSE COMPLETED, DENIES C/O.
[2018-07-20 16:30] VITALS: BP 112/68
== END 2018-07-20 16:30 | disposition home or self-care (01) ==
LOC: SDC 12:55
PROVIDERS: ATTEND Family Medicine
DX: D50.9 Iron deficiency anemia, unspecified (principal)
CPT/HCPCS: 96365

== ENCOUNTER → 2018-09-01 | Outpatient (RCR) | payer MEDICARE | END | disposition home or self-care (01) | LOC: CR3 08-02 15:00 | PROVIDERS: ATTEND Family Medicine | DX: Z29.8 Encounter for other specified prophylactic measures (principal) ==

== ENCOUNTER → 2018-09-15 | Outpatient (CLI) | payer MEDICARE ==
[~2018-09-15] VITALS: Ht 157.5 cm; Wt 64.6 kg
[~2018-09-15] MED LIST changes: +DENOSUMAB 60 MG/1 ML (PROLIA) SQ NR
[2018-09-15 13:32] VITALS: BP 103/56
== END ==
LOC: SDC 13:04
PROVIDERS: ATTEND Family Medicine
DX: M81.0 Age-related osteoporosis without current pathological fracture (principal)
CPT/HCPCS: 90471

== ENCOUNTER → 2018-11-20 | Outpatient (CLI) | payer MEDICARE ==
[~2018-11-20] MED LIST changes: -DENOSUMAB 60 MG/1 ML (PROLIA) SQ NR; -SOTA80TA PO; +STL80T PO
--- NOTE | 2018-11-20 14:13 | Diagnostic Imaging Report ---
INDICATION: Valvular heart disease. COMPARISON: 02/26/2018. FINDINGS: The heart size is normal. The lungs are clear. There is no pleural effusion or pneumothorax. A pacemaker overlies the left hemithorax. 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 IMPRESSION: No acute cardiopulmonary abnormality. Dictated by: Dictated on workstation # [id number]
== END ==
LOC: SDC 11:40
PROVIDERS: ATTEND Family Medicine
DX: I38 Endocarditis, valve unspecified (principal); D64.9 Anemia, unspecified; Z95.0 Presence of cardiac pacemaker
CPT/HCPCS: 71046

== ENCOUNTER 2018-12-27 10:49 | Outpatient (RCR) | payer MEDICARE | END 2018-12-29 | disposition home or self-care (01) | LOC: CR 10:49 | PROVIDERS: ATTEND Internal Medicine Interventional Cardiology | DX: Z48.812 Encounter for surgical aftercare following surgery on the circulatory system (principal); Z95.2 Presence of prosthetic heart valve | CPT/HCPCS: 93798 ==

== ENCOUNTER 2018-12-29 10:45 | Emergency (ER) | payer MEDICARE ==
[~2018-12-29] VITALS: Ht 157.5 cm; Wt 64.6 kg
--- NOTE | 2018-12-29 10:55 | NUR ---
Dr Rivas and [facility] talking with
--- NOTE | 2018-12-29 11:00 | NUR ---
Responded to page for pt in ER with a large mary jane bleed. I responded contacted and spent much time with him as pt deteriorated and as he processed decision on comfort care vs possible transfer. I was present as pt declined and continued to be present as daughters and families arrived. Provided support, prayer and comfort.
--- NOTE | 2018-12-29 11:00 | NUR ---
ET 29
[2018-12-29] MEDS ORDERED: NS (IVPB) 250 ML ONE (11:01)
[2018-12-29] MEDS ORDERED: niCARdipine IV FOR DRIP 50 MG KIT ONE (11:01)
--- NOTE | 2018-12-29 11:01 | Diagnostic Imaging Report ---
PROCEDURE: CT head wok r/o stroke. TECHNIQUE: Multiple contiguous axial images were obtained through the brain without the use of intravenous contrast. Auto Exposure Controls were utilized during the CT exam to meet ALARA standards for radiation dose reduction. INDICATION: Elevated blood pressure. Correlation is made with prior head CT from 02/02/2017. Large acute intraparenchymal hematoma is identified on the right. This centered in the right basal ganglia right thalamus measuring approximately 5.7 cm AP x 5.5 cm transverse. There is also large amount of acute intraventricular blood within bilateral lateral ventricles as well as the third and fourth ventricles. There is shift of the midline from right to left by approximately 13 mm. Moderate periventricular hypodensity is seen. Cisterns do show moderate effacement. Ventricular size has increased since prior head CT, perhaps owing to a component of hydrocephalus. IMPRESSION: Large acute intracranial hemorrhage which is predominantly intraparenchymal as well as intraventricular. This may be secondary to hypertensive crisis. There is midline shift right to left consistent with subfalcine herniation. Results were discussed with Dr. Rivas of the emergency department prior to this dictation. Dictated by: Dictated on workstation # [id number]
[2018-12-29 11:08] LABS: BASOPHILS % (AUTO) 0 % (0-10); EOSINOPHILS # (AUTO) 0.2 10^3/uL (0.0-0.3); EOSINOPHILS % (AUTO) 2 % (0-10); HEMATOCRIT 39 % (35-52); HEMOGLOBIN 12.9 G/DL (11.5-16.0); LYMPHOCYTES # (AUTO) 0.9 X 10^3 (1.0-4.0); LYMPHOCYTES % (AUTO) 9 % (12-44); MEAN CORPUSCULAR HEMOGLOBIN 31 PG (25-34); MEAN CORPUSCULAR HGB CONC 33 G/DL (32-36); MEAN CORPUSCULAR VOLUME 95 FL (80-99); MEAN PLATELET VOLUME 8.9 FL (7.4-10.4); MONOCYTES # (AUTO) 0.9 X 10^3 (0.0-1.0); MONOCYTES % (AUTO) 9 % (0-12); NEUTROPHILS # (AUTO) 7.7 X 10^3 (1.8-7.8); NEUTROPHILS % (AUTO) 80 % (42-75); PLATELET COUNT 271 10^3/uL (130-400); RED CELL DISTRIBUTION WIDTH 15.6 % (10.0-14.5); WHITE BLOOD COUNT 9.6 10^3/uL (4.3-11.0)
[2018-12-29] MEDS: niCARdipine IV 50 MG in NS (IVPB) 230 ML IV SCH ×3 (11:15→12:11)
--- NOTE | 2018-12-29 11:17 | ED Neurological Problem ---
General Stated Complaint: POSS CVA Source: family, EMS Exam Limitations: clinical condition History of Present Illness Date Seen by Provider: Dec 29, 2018 Time Seen by Provider: 10:45 Initial Comments 83-year-old female brought in by EMS. Patient was at home in the shower when her heard her fall. Upon EMS arrival patient was initially mildly responsive and then became unresponsive and sonorous. Patient is currently on a blood thinner. Patient had a arterial valve replacement 5-6 weeks ago. Patient is mildly responsive the pain for EMS otherwise no other history of present illness available at this Allergies and Home Medications Allergies Coded Allergies: ciprofloxacin (Verified Allergy, Mild, A-FIB, 06/16/18) Sulfa (Sulfonamide Antibiotics) (Verified Adverse Reaction, Mild, RASH, 06/16/18) Home Medications Calcium Carbonate 600 Mg Tablet, 600 MG PO BID, (Reported) Cholecalciferol (Vitamin D3) 2,000 Unit Capsule, 2,000 UNIT PO BID, (Reported) Cyanocobalamin (Vitamin B-12) 500 Mcg Tablet, 500 MCG PO DAILY, (Reported) Diltiazem HCl 120 Mg Cap.er.24h, 120 MG PO DAILY Prescribed by: LUKE TANG on 03/01/18 0943 Fenofibrate Nanocrystallized 145 Mg Tablet, 145 MG PO DAILY, (Reported) Fluticasone Propionate 16 Gm [place].susp, 1 SPRAY NS DAILY, (Reported) Folic Acid 0.4 Mg Tablet, 0.4 MG PO DAILY, (Reported) Furosemide 20 Mg Tablet, 20 MG PO DAILY, (Reported) Gluc/Renny-MSM#2/C/D3/Ruben/Born 1 Each Tablet, 1 TAB PO BID, (Reported) Lactobacillus Rhamnosus GG 1 Each Capsule, 1 CAP PO DAILY, (Reported) Levothyroxine Sodium 100 Mcg Tablet, 100 MCG PO DAILY, (Reported) Loratadine 10 Mg Capsule, 10 MG PO BID, (Reported) Lysine HCl 500 Mg Tablet, 1,000 MG PO DAILY, (Reported) Pantoprazole Sodium 40 Mg Tablet.dr, 40 MG PO DAILY, (Reported) Perphenazine/Amitriptyline HCl 1 Each Tablet, 1 TAB PO BID, (Reported) Potassium Chloride 10 Meq Tab.er.prt, 10 MEQ PO DAILY, (Reported) Simvastatin 20 Mg Tablet, 20 MG PO DAILY, (Reported) Sotalol HCl 80 Mg Tablet, 80 MG PO BID Prescribed by: XENIA OSORIO on 03/01/18 1008 Sucralfate 1 Gm Tablet, 1 GM PO TID, (Reported) Patient Home Medication List Home Medication List Reviewed: Yes Review of Systems Review of Systems Constitutional: no symptoms reported Psychiatric/Neurological: See HPI Review of systems Limited due to patient's clinical clinical condition with no other review of systems available Past Dqlcrtb-Rjmpfp-Ndqylu Hx Past Med/Social Hx: Reviewed Nursing Past Med/Soc Hx Patient Social History Type Used: Cigarettes 2nd Hand Smoke Exposure: No Recent Hopitalizations: Yes (AFIB/BLEEDING ULCER) Immunizations Up To Date Tetanus Booster (TDap): Unknown Date of Pneumonia Vaccine: May 03, 2014 Date of Influenza Vaccine: Feb 27, 2018 Seasonal Allergies Seasonal Allergies: Yes Past Medical History Surgeries: Yes (PACEMAKER, KYPHOPLASTY, R LEG PLATES/SCREWS) Coronary Stent, Gallbladder, Hysterectomy Respiratory: No Cardiac: Yes (ANGIOPLASTY W/ STENT,1998) Atrial Fibrillation, Heart Attack, High Cholesterol, Hypertension Neurological: No Reproductive Disorders: No Female Reproductive Disorders: Denies 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, 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 Sexually Transmitted Disease: No HIV/AIDS: No Genitourinary: Yes UTI-Chronic Gastrointestinal: Yes Gastroesophageal Reflux, Diverticulosis, Chronic Diarrhea, Ulcer Musculoskeletal: Yes (KYPOPLASTY NOVEMBER 2011 L1) Arthritis Endocrine: Yes Hypothyroidsim HEENT: No Loss of Vision: Denies Hearing Impairment: Hard of Hearing Cancer: No Psychosocial: No Integumentary: Yes (ITCHING) Blood Disorders: Yes (ANEMIA) Adverse Reaction/Blood Tranf: No (HAS HAD BLOOD WITH NO REACTION) Family Medical History Cardiovascular disease 19 FATHER 19 MOTHER G8 BROTHER Hypertension 19 FATHER G8 BROTHER Heart Disease, Hypertension Physical Exam Vital Signs Vital Signs - First Documented 12/29/18 12/29/18 10:46 11:35 Temp 97.0 Pulse 97 Resp 11 B/P (MAP) 147/85 (105) Pulse Ox 96 O2 Delivery Nasal Cannula O2 Flow Rate 2.00 Capillary Refill : Height, Weight, BMI Height: 5'2.00" Weight: 142lbs. 5.0oz. 64.204099ps; 26.0 BMI Method:Stated General Appearance: other (frail, decreased responsive with sonorous bleeding) HEENT: other (. On equal and minimally reactive) Respiratory: lungs clear, normal breath sounds, other (snorous respirations) Cardiovascular: normal peripheral pulses, regular rate, rhythm Neurologic/Psychiatric: other (limited exam based on patient's clinical condition) Crainal Nerves: other (patient is unresponsive with minimal responsiveness to pain. Patient exam consistent with probable hemorrhagic CVA) Skin: normal color, warm/dry Progress/Results/Core Measures Results/Orders Lab Results Laboratory Tests Test 12/29/18 10:59 12/29/18 11:58 Range/Units White Blood Count 9.6 4.3-11.0 10^3/uL Red Blood Count 4.10 L 4.35-5.85 10^6/uL Hemoglobin 12.9 11.5-16.0 G/DL Hematocrit 39 35-52 % Mean Corpuscular Volume 95 80-99 FL Mean Corpuscular Hemoglobin 31 25-34 PG Mean Corpuscular Hemoglobin Concent 33 32-36 G/DL Red Cell Distribution Width 15.6 H 10.0-14.5 % Platelet Count 271 130-400 10^3/uL Mean Platelet Volume 8.9 7.4-10.4 FL Neutrophils (%) (Auto) 80 H 42-75 % Lymphocytes (%) (Auto) 9 L 12-44 % Monocytes (%) (Auto) 9 0-12 % Eosinophils (%) (Auto) 2 0-10 % Basophils (%) (Auto) 0 0-10 % Neutrophils # (Auto) 7.7 1.8-7.8 X 10^3 Lymphocytes # (Auto) 0.9 L 1.0-4.0 X 10^3 Monocytes # (Auto) 0.9 0.0-1.0 X 10^3 Eosinophils # (Auto) 0.2 0.0-0.3 10^3/uL Basophils # (Auto) 0.0 0.0-0.1 10^3/uL Prothrombin Time 15.6 H 12.2-14.7 SEC INR Comment 1.2 0.8-1.4 Activated Partial Thromboplast Time 32 24-35 SEC D-Dimer 0.62 H 0.00-0.49 UG/ML Sodium Level 134 L 135-145 MMOL/L Potassium Level 4.3 3.6-5.0 MMOL/L Chloride Level 103 98-107 MMOL/L Carbon Dioxide Level 21 21-32 MMOL/L Anion Gap 10 5-14 MMOL/L Blood Urea Nitrogen 19 H 7-18 MG/DL Creatinine 0.84 0.60-1.30 MG/DL Estimat Glomerular Filtration Rate > 60 BUN/Creatinine Ratio 23 Glucose Level 151 H 70-105 MG/DL Calcium Level 10.3 H 8.5-10.1 MG/DL Corrected Calcium 10.4 H 8.5-10.1 MG/DL Total Bilirubin 0.5 0.1-1.0 MG/DL Aspartate Amino Transf (AST/SGOT) 20 5-34 U/L Alanine Aminotransferase (ALT/SGPT) 9 0-55 U/L Alkaline Phosphatase 42 40-136 U/L Troponin I 0.036 H <0.028 NG/ML Total Protein 7.3 6.4-8.2 GM/DL Albumin 3.9 3.2-4.5 GM/DL Urine Color YELLOW Urine Clarity CLEAR Urine pH 5 5-9 Urine Specific [place] 1.010 L 1.016-1.022 Urine Protein NEGATIVE NEGATIVE Urine Glucose (UA) NEGATIVE NEGATIVE Urine Ketones NEGATIVE NEGATIVE Urine Nitrite NEGATIVE NEGATIVE Urine Bilirubin NEGATIVE NEGATIVE Urine Urobilinogen NORMAL NORMAL MG/DL Urine Leukocyte Esterase NEGATIVE NEGATIVE Urine RBC (Auto) NEGATIVE NEGATIVE Urine RBC RARE /HPF Urine WBC NONE /HPF Urine Squamous Epithelial Cells NONE /HPF Urine Crystals NONE /LPF Urine Bacteria NEGATIVE /HPF Urine Casts NONE /LPF Urine Mucus NEGATIVE /LPF Urine Culture Indicated NO My Orders Orders - CUELLO,JULIANNE L DO Cbc With Automated Diff (12/29/18 10:48) Protime With Inr (12/29/18 10:48) Partial Thromboplastin Time (12/29/18 10:48) Comprehensive Metabolic Panel (12/29/18 10:48) Fibrin Degradation Products (12/29/18 10:48) Troponin I (12/29/18 10:48) Ua Culture If Indicated (12/29/18 10:48) Chest 1 View, Ap/Pa Only (12/29/18 10:48) Catheter(Urinary) Insert & Ass 03,15 (12/29/18 10:48) Ekg Tracing (12/29/18 10:48) Nothing By Mouth (12/29/18 Dinner) Accucheck Stat ONCE (12/29/18 10:48) Ed Iv/Invasive Line Start (12/29/18 10:48) Ed Iv/Invasive Line Start (12/29/18 10:48) Vital Signs Stroke Patient Q15M (12/29/18 10:48) Ct Head Wo-R/O Stroke (12/29/18 10:48) O2 (12/29/18 10:48) Intake & Output 06,14,22 (12/29/18 10:48) Monitor-Rhythm Ecg Trace Only (12/29/18 10:48) Dysphagia Screening Tool (12/29/18 10:48) Lipid Panel (12/30/18 06:00) Ns (Ivpb) (Sodium C... W/Nicardipine Iv (12/29/18 11:15) Nicardipine Iv For Drip (Cardene I.V. (O (12/29/18 11:01) Ns (Ivpb) (Sodium Chloride 0.9%) (12/29/18 11:01) Albuterol/Ipra Inhalation Soln (Duoneb I (12/29/18 12:45) Svn Small Volume Nebulizer (12/29/18 12:39) Medications Given in ED Current Medications Medications Dose Ordered Sig/Russ Route Start Time Stop Time Status Last Admin Dose Admin Albuterol/ Ipratropium 3 ml ONCE ONCE INH 12/29/18 12:45 12/29/18 12:46 DC 12/29/18 12:47 3 ML Vital Signs/I&O 12/29/18 12/29/18 12/29/18 10:46 11:35 12:48 Temp 97.0 Pulse 97 Resp 11 B/P (MAP) 147/85 (105) Pulse Ox 96 98 93 O2 Delivery Nasal Cannula OxyMask O2 Flow Rate 2.00 15.00 Progress Progress Note : Progress Note Patient's is having difficulty determining what he wants to have her transferred for treatment versus comfort care. Patient is leaning towards comfort care but is having difficulty because he would like his kids to be here present before he makes that decision. This time patient is stable and her respirations and intubation is not needed. Her blood pressure is controlled with nicardipine. We will await his decision before further treatment is initiated Patient at 1348 prior to being transferred to the floor. Initial ECG Impression Date: Dec 29, 2018 Initial ECG Impression Time: 11:19 Initial ECG Rate: 95 Comment Atrial paced Departure Communication (Admissions) Patient to be admitted to Dr. López for comfort care. Impression Primary Impression: Intracranial hemorrhage Disposition: 20 Condition: Unchanged Departure-Patient Inst. Referrals: LUKE TANG MD (PCP/Family) Primary Care Physician JULIANNE CUELLO DO Dec 29, 2018 11:17
[2018-12-29 11:24] LABS: PROTHROMBIN TIME PATIENT 15.6 SEC (12.2-14.7)
[2018-12-29 11:25] LABS: FIBRIN DEGRADATION PRODUCTS 0.62 UG/ML (0.00-0.49); INR 1.2 (0.8-1.4)
[2018-12-29 11:26] LABS: ALANINE AMINOTRANSFERASE 9 U/L (0-55); ALBUMIN 3.9 GM/DL (3.2-4.5); ALKALINE PHOSPHATASE 42 U/L (40-136); BILIRUBIN,TOTAL 0.5 MG/DL (0.1-1.0); BUN/CREATININE RATIO 23; CALCIUM 10.3 MG/DL (8.5-10.1); CARBON DIOXIDE 21 MMOL/L (21-32); CHLORIDE 103 MMOL/L (98-107); CREATININE SERUM 0.84 MG/DL (0.60-1.30); GFR ESTIMATED > 60; GLUCOSE 151 MG/DL (70-105); POTASSIUM 4.3 MMOL/L (3.6-5.0); SODIUM 134 MMOL/L (135-145); TOTAL PROTEIN 7.3 GM/DL (6.4-8.2)
--- NOTE | 2018-12-29 11:46 | NUR ---
and [facility] to [facility] rehab to talk to nurses per husbands request. is conflicted over what to do and kids are in route
--- NOTE | 2018-12-29 11:58 | Diagnostic Imaging Report ---
INDICATION: Stroke. Comparison is made with prior chest from 11/20/2018. FINDINGS: The heart size is stable. Cardiac pacemaker remains in place. Aortic valve replacement is noted. There is a right convexity thoracic scoliotic curvature. No infiltrates are seen. No effusion or pneumothorax is identified. IMPRESSION: No acute cardiopulmonary process is detected. Dictated by: Dictated on workstation # [id number]
--- NOTE | 2018-12-29 12:00 | NUR ---
children in route. husbands wants them to help make decisions
--- NOTE | 2018-12-29 12:04 | NUR ---
sats 90%. placed on face mask at 8l/min. spo2 to 96%
[2018-12-29 12:05] LABS: BILIRUBIN,URINE NEGATIVE (NEGATIVE); CLARITY,URINE CLEAR; COLOR,URINE YELLOW; GLUCOSE, URINE (UA) NEGATIVE (NEGATIVE); KETONES,URINE NEGATIVE (NEGATIVE); LEUKOCYTE ESTERASE ,URINE NEGATIVE (NEGATIVE); NITRITE,URINE NEGATIVE (NEGATIVE); PH,URINE 5 (5-9); PROTEIN,URINE NEGATIVE (NEGATIVE); UROBILINOGEN,URINE NORMAL (NORMAL)
[2018-12-29 12:14] LABS: BACTERIA,URINE NEGATIVE /HPF; RBC,URINE RARE /HPF
--- NOTE | 2018-12-29 12:38 | NUR ---
difficuly clearing secretions. rt did deep suctioning. sats in [address] del real notified. to room. no gag but patient did start coughing and large amount of mucous suctioned. sats into min 90's. does state that he wants comfort care but would like for her to stay in ed until family arrives
[2018-12-29] MEDS ORDERED: RT-ALBUTEROL/IPRATROPIUM 3 ML (DUONEB) VIAL INH ONE (12:45)
--- NOTE | 2018-12-29 12:45 | NUR ---
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 Patient in ED 3, with O2 mask on at 15L and in need of deep suctioning routinely. Saturations were low 90s and would drop to mid 80's. She was unresponsive. Spoke to and offered empathetic listening and understanding of the difficult situation he was facing. He reports wanting the children to be here to see her in the ED location. Believing that then they will be more understanding of his desire to keep her comfortable. He currently reports no needs.
--- NOTE | 2018-12-29 12:56 | NUR ---
states that there is a daughter who wants more done. He asks how the window is for time. Dr Rivas notified. Explained that at this point, there is not much more to do. Did explain that the has the final say and he has said she would not want more done. Patient is having snoring resp and difficulty clearing secretions- requires deep suctioning. Will cough but no gag
--- NOTE | 2018-12-29 13:00 | NUR ---
Patient has snoring resp and requires freq deep suctioning will cough but no gag. Will be apnic for 30-60 sec after suctioning. sats will drop into 70-80s but will increase. large amts of secretions suctioned. only rare upper extremity posturing noted, no other movement seen
--- NOTE | 2018-12-29 13:14 | NUR ---
states that his children are upset that he has not done more and want hedge trimmer consulted. did explain that cardiology would not weigh in on this situation because the Dr was in [place] and not a part of this care. And it being a cerecral bleed and not a heart issue, it would be outside is level of experitese. states he knows this but he is worried that his kids will fight him
--- OUTSIDE RECORDS SUMMARY | 2018-12-29 13:14 | XMS REPORT | CCD ---
Author Author Kandi Cabrera Organization Kandi Cabrera MD, [facility] Address [address] [place] [address] Phone Care Team Providers Care Manager Mall Name Role Phone PP Unavailable CCM Unavailable Summary Purpose Interface Exchange Insurance Providers Payer name Policy type / Coverage type Covered green party ID Effective Begin Date Effective End Date [facility] Commercial Insurance [id number] Unknown WPS Medicare Part B Commercial Insurance [id number] 2017 Unknown Family history Father Diagnosis Age [...] Unknown Retired 12/23/[address]: 78800863 Current every day smoker 12/23/2014 Number of years using tobacco Unknown > 50 trying to quit 12/23/2014 Number of cigarettes/day Unknown 10 (Half a pack) 12/23/[address]: 219384902 Never drinks alcohol 12/23/2014 Allergies, Adverse Reactions, Alerts Substance Reaction Codes Entered Date Inactivated Date Status ciprofloxacin RxNorm: 22198 05/05/2018 No Inactive Date Active SULFA(SULFONAMIDE ANTIBIOTICS) Unknown 05/05/2018 No Inactive Date Active Past Medical History Illness Codes Condition Status Onset Date Resolved Date 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 Active 08/31/2016 Unknown Essential (primary) hypertension ICD-9: 401.9 ICD-10: I10 Active 12/22/2014 Unknown Cough ICD-9: 786.2 ICD-10: R05 Active 01/26/2017 Unknown Other iron deficiency anemias ICD-9: 280.1 ICD-10: D50.8 Active 05/26/2017 Unknown Pain in right hip ICD-9: 719.45 ICD-10: M25.551 Active 08/21/2018 Unknown Chronic atrial fibrillation ICD-9: 427.31 ICD-10: I48.2 Active 08/31/2016 Unknown Tobacco abuse counseling ICD-9: V65.42 ICD-10: Z71.6 Active 07/28/2015 Unknown Allergic urticaria ICD- 9: 708.0 ICD-10: L50.0 Active 06/05/2018 Unknown Anemia, unspecified ICD- 9: 285.9 ICD-10: D64.9 Active 05/19/2017 Unknown Other insomnia ICD-9: 327.09 ICD-10: G47.09 Active 06/05/2018 Unknown Encounter for general adult medical examination with abnormal findings ICD-9: V70.0 ICD-10: Z00.01 Active 05/05/2018 Unknown Nonrheumatic aortic (valve) stenosis ICD-9: 424.1 ICD-10: I35.0 Active 03/06/2018 Unknown Age-related osteoporosis without current pathological fracture ICD-9: 733.00 ICD-10: M81.0 Active 03/06/2018 Unknown Dysuria ICD-9: 788.1 ICD-10: R30.0 Active 02/22/2018 Unknown Gastro-esophageal reflux disease without esophagitis ICD-9: 530.81 ICD-10: K21.9 Active 07/26/2017 Unknown Hypothyroidism, unspecified ICD-9: 244.9 ICD-10: E03.9 Active 12/22/2014 Unknown Low back pain ICD-9: 724.2 ICD-10: M54.5 Active 08/12/2016 Unknown Epigastric pain ICD-9: 789.06 ICD-10: R10.13 Active 10/27/2017 Unknown Left lower quadrant pain ICD-9: 789.04 ICD-10: R10.32 Active 10/27/2017 Unknown Right lower quadrant pain ICD-9: 789.03 ICD-10: R10.31 Active 10/27/2017 Unknown Diverticulitis of large intestine without perforation or abscess without bleeding ICD-9: 562.11 ICD-10: K57.32 Active 11/29/2017 Unknown Tobacco use ICD-9: 305.1 ICD-10: Z72.0 Active 07/28/2015 Unknown Shortness of breath ICD- 9: 786.05 ICD-10: R06.02 Active 04/11/2017 Unknown Encounter for immunization ICD-9: V03.9 ICD-10: Z23 Active 02/09/2017 Unknown Unsteadiness on feet ICD- 9: 781.2 ICD-10: R26.81 Active 01/26/2017 Unknown Mixed hyperlipidemia ICD- 9: 272.4 ICD-10: E78.2 Active 12/22/2014 Unknown Sacroiliitis, not elsewhere classified ICD-9: 720.2 ICD-10: M46.1 Active 08/12/2016 Unknown Cellulitis of left lower limb ICD-9: 682.6 ICD-10: L03.116 Active 01/27/2016 Unknown Encounter for immunization ICD-9: V04.81 ICD-10: Z23 Active 01/27/2016 Unknown Diarrhea, unspecified ICD- 9: 787.91 ICD-10: R19.7 Active 07/28/2015 Unknown Other obesity due to excess calories ICD-9: 278.00 ICD-10: E66.09 Active 07/28/2015 Unknown Actinic keratosis ICD-9: 702.0 ICD-10: L57.0 Active 03/30/2015 Unknown Hyperlipidemia Unknown Active 12/23/2014 Unknown Hypertension Unknown Active 12/23/2014 Unknown Hypothryroidism Unknown Active 12/23/2014 Unknown Osteoarthritis Unknown Active 12/23/2014 Unknown ESSENTIAL HYPERTENSION ICD-9: 401.9 Active 12/22/2014 Unknown HYPERLIPIDEMIA ICD-9: 272.4 Active 12/22/2014 Unknown HYPOTHYROIDISM ICD-9: 244.9 Active 12/22/2014 Unknown OSTEOARTH NOS-UNSPEC ICD- 9: 715.90 Active 12/22/2014 Unknown Osteoporosis ICD-9: 733.00 Active 12/22/2014 Unknown Sacroiliitis ICD-9: 720.2 Active 12/22/2014 Unknown Problems Condition Codes Effective Dates Condition Status 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 08/31/2016 Active Essential (primary) hypertension ICD-9: 401.9 ICD-10: I10 12/22/2014 Active Cough ICD-9: 786.2 ICD-10: R05 01/26/2017 Active Other iron deficiency anemias ICD-9: 280.1 ICD-10: D50.8 05/26/2017 Active Pain in right hip ICD-9: 719.45 ICD-10: M25.551 08/21/2018 Active Chronic atrial fibrillation ICD-9: 427.31 ICD-10: I48.2 08/31/2016 Active Tobacco abuse counseling ICD-9: V65.42 ICD-10: Z71.6 07/28/2015 Active Allergic urticaria ICD- 9: 708.0 ICD-10: L50.0 06/05/2018 Active Anemia, unspecified ICD- 9: 285.9 ICD-10: D64.9 05/19/2017 Active Other insomnia ICD-9: 327.09 ICD-10: G47.09 06/05/2018 Active Encounter for general adult medical examination with abnormal findings ICD-9: V70.0 ICD-10: Z00.01 05/05/2018 Active Nonrheumatic aortic (valve) stenosis ICD-9: 424.1 ICD-10: I35.0 03/06/2018 Active Age-related osteoporosis without current pathological fracture ICD-9: 733.00 ICD-10: M81.0 03/06/2018 Active Dysuria ICD-9: 788.1 ICD-10: R30.0 02/22/2018 Active Gastro-esophageal reflux disease without esophagitis ICD-9: 530.81 ICD-10: K21.9 07/26/2017 Active Hypothyroidism, unspecified ICD-9: 244.9 ICD-10: E03.9 12/22/2014 Active Low back pain ICD-9: 724.2 ICD-10: M54.5 08/12/2016 Active Epigastric pain ICD-9: 789.06 ICD-10: R10.13 10/27/2017 Active Left lower quadrant pain ICD-9: 789.04 ICD-10: R10.32 10/27/2017 Active Right lower quadrant pain ICD-9: 789.03 ICD-10: R10.31 10/27/2017 Active Diverticulitis of large intestine without perforation or abscess without bleeding ICD-9: 562.11 ICD-10: K57.32 11/29/2017 Active Tobacco use ICD-9: 305.1 ICD-10: Z72.0 07/28/2015 Active Shortness of breath ICD- 9: 786.05 ICD-10: R06.02 04/11/2017 Active Encounter for immunization ICD-9: V03.9 ICD-10: Z23 02/09/2017 Active Unsteadiness on feet ICD- 9: 781.2 ICD-10: R26.81 01/26/2017 Active Mixed hyperlipidemia ICD- 9: 272.4 ICD-10: E78.2 12/22/2014 Active Sacroiliitis, not elsewhere classified ICD-9: 720.2 ICD-10: M46.1 08/12/2016 Active Cellulitis of left lower limb ICD-9: 682.6 ICD-10: L03.116 01/27/2016 Active Encounter for immunization ICD-9: V04.81 ICD-10: Z23 01/27/2016 Active Diarrhea, unspecified ICD- 9: 787.91 ICD-10: R19.7 07/28/2015 Active Other obesity due to excess calories ICD-9: 278.00 ICD-10: E66.09 07/28/2015 Active Actinic keratosis ICD-9: 702.0 ICD-10: L57.0 03/30/2015 Active Hyperlipidemia Unknown 12/23/2014 Active Hypertension Unknown 12/23/2014 Active Hypothryroidism Unknown 12/23/2014 Active Osteoarthritis Unknown 12/23/2014 Active ESSENTIAL HYPERTENSION ICD-9: 401.9 12/22/2014 Active HYPERLIPIDEMIA ICD-9: 272.4 12/22/2014 Active HYPOTHYROIDISM ICD-9: 244.9 12/22/2014 Active OSTEOARTH NOS-UNSPEC ICD- 9: 715.90 12/22/2014 Active Osteoporosis ICD-9: 733.00 12/22/2014 Active Sacroiliitis ICD-9: 720.2 12/22/2014 Active Medications Medication Codes Instructions Start Date Stop Date Status Fill Instructions diltiazem ER 240 mg capsule,24 hr,extended release RxNorm: 574893 1 Capsule(s) PO daily 12/28/2018 No Stop Date Active sucralfate 1 gram tablet RxNorm: 292685 1 Tablet(s) PO TID 09/11/2018 09/05/2019 Active sucralfate 1 gram tablet RxNorm: 960114 1 Tablet(s) PO TID 09/11/2018 09/10/2018 Inactive diltiazem ER 120 mg capsule,24 hr,extended release RxNorm: 564593 1 Capsule(s) PO daily 08/29/2018 12/27/2018 Inactive perphenazine-amitriptyline 2 mg-10 mg tablet RxNorm: 921706 2 Tablet(s) PO daily 08/15/2018 11/07/2019 Active PA approved: [id number] 29-20-57-08-15-2019 perphenazine-amitriptyline 2 mg-10 mg tablet RxNorm: 285464 2 Tablet(s) PO daily 08/15/2018 08/14/2018 Inactive PA approved: need 7 days while waiting on mail order perphenazine-amitriptyline 2 mg-10 mg tablet RxNorm: 207679 2 Tablet(s) PO daily 08/04/2018 08/03/2018 Inactive waiting on mail order perphenazine-amitriptyline 2 mg-10 mg tablet RxNorm: 176687 2 Tablet(s) PO daily 08/04/2018 08/03/2018 Inactive perphenazine-amitriptyline 2 mg-10 mg tablet RxNorm: 343546 2 Tablet(s) PO daily 08/04/2018 08/14/2018 Inactive Tricor 145 mg tablet RxNorm: 486195 1 Tablet(s) PO daily 07/17/2018 10/09/2019 Active pantoprazole 40 mg tablet,delayed release RxNorm: 030726 1 Tablet(s) PO daily 07/17/2018 10/09/2019 Active hydroxyzine HCl 25 mg tablet RxNorm: 378882 2 Tablet(s) PO QHS may increase to two pills at hs if allergic reactions are occuring 07/17/2018 11/13/2018 Inactive Synthroid 100 mcg tablet RxNorm: 657385 1 Tablet(s) PO daily 06/05/2018 08/28/2019 Active hydroxyzine HCl 25 mg tablet RxNorm: 723660 1 Tablet(s) PO QHS may increase to two pills at hs if allergic reactions are occuring 06/05/2018 07/16/2018 Inactive Lasix 20 mg tablet RxNorm: 131895 1 Tablet(s) PO daily as needed not more than one time a day 05/19/2018 09/15/2018 Inactive prednisone 20 mg tablet RxNorm: 742131 2 Tablet(s) PO daily 02/22/2018 02/26/2018 Inactive Cipro 500 mg tablet RxNorm: 155182 1 Tablet(s) PO BID 02/22/2018 02/28/2018 Inactive potassium chloride ER 10 mEq tablet,extended release RxNorm: 550813 1 Tablet(s) PO UD take on days that you take a lasix pill 02/13/2018 02/07/2019 Active Synthroid 100 mcg tablet RxNorm: 618942 1 Tablet(s) PO daily 02/13/2018 06/04/2018 Inactive simvastatin 20 mg tablet RxNorm: 166010 1 Tablet(s) PO QHS 01/13/2018 01/07/2019 Active metronidazole 500 mg tablet RxNorm: 037375 1 Tablet(s) PO TID 11/29/2017 12/08/2017 Inactive alendronate 70 mg tablet RxNorm: 098270 1 Tablet(s) PO weekly 11/29/2017 03/05/2018 Inactive omeprazole 40 mg capsule,delayed release RxNorm: 626270 1 Capsule(s) PO daily 11/11/2017 07/16/2018 Inactive Flagyl 500 mg tablet RxNorm: 248997 1 Tablet(s) PO TID 10/27/2017 11/05/2017 Inactive fluticasone 50 mcg/actuation nasal spray,suspension RxNorm: 3424520 1 [place] NASAL daily 07/26/2017 No Stop Date Active sucralfate 1 gram tablet RxNorm: 513493 1 Tablet(s) PO TID 07/26/2017 07/20/2018 Inactive Protonix 40 mg tablet,delayed release RxNorm: 828442 1 Tablet(s) PO daily 07/26/2017 10/23/2017 Inactive Tricor 145 mg tablet RxNorm: 503274 1 Tablet(s) PO daily 05/26/2017 05/20/2018 Inactive perphenazine-amitriptyline 2 mg-10 mg tablet RxNorm: 212441 2 Tablet(s) PO daily 05/26/2017 05/20/2018 Inactive bupropion HCl 75 mg tablet RxNorm: 580027 1/2 Tablet(s) PO BID 02/07/2017 12/20/2018 Inactive Eliquis 5 mg tablet RxNorm: 3047973 1 Tablet(s) PO BID 01/26/2017 01/20/2018 Inactive sotalol 80 mg tablet RxNorm: 6643047 1 Tablet(s) PO BID 01/26/2017 04/20/2018 Inactive potassium chloride ER 10 mEq tablet,extended release RxNorm: 438705 1 Tablet(s) PO UD take on days that you take a lasix pill 01/26/2017 01/20/2018 Inactive Synthroid 100 mcg tablet RxNorm: 700042 1 Tablet(s) PO daily 01/26/2017 02/12/2018 Inactive diltiazem ER 240 mg capsule,extended release RxNorm: 606059 1 Capsule(s) PO BID 01/26/2017 05/03/2017 Inactive Lasix 20 mg tablet RxNorm: 1 Tablet(s) PO daily as needed not more than one time a day 01/26/2017 05/25/2017 Inactive simvastatin 20 mg tablet RxNorm: 350794 1 Tablet(s) PO QHS 12/21/2016 12/15/2017 Inactive alendronate 70 mg tablet RxNorm: 293284 1 Tablet(s) PO weekly 12/21/2016 11/28/2017 Inactive omeprazole 40 mg capsule,delayed release RxNorm: 845136 1 Capsule(s) PO daily 10/19/2016 10/12/2017 Inactive metoprolol succinate ER 100 mg tablet,extended release 24 hr RxNorm: 390091 1.5 Tablet(s) PO daily 09/17/2016 10/18/2016 Inactive Dosage increased by Dr. Vazquez potassium chloride ER 10 mEq tablet,extended release RxNorm: 472794 1 Tablet(s) PO UD take on days that you take a lasix pill 08/31/2016 12/28/2016 Inactive Lasix 20 mg tablet RxNorm: 1 Tablet(s) PO daily as needed not more than one time a day 08/31/2016 12/28/2016 Inactive Kenalog 40 mg/mL suspension for injection RxNorm: 5698409 1 Milliliter(s) Inj 08/12/2016 08/12/2016 Inactive Tricor 145 mg tablet RxNorm: 580957 1 Tablet(s) PO daily 05/21/2016 05/15/2017 Inactive atenolol 25 mg tablet RxNorm: 643414 1 Tablet(s) PO daily 05/21/2016 08/30/2016 Inactive sucralfate 1 gram tablet RxNorm: 165903 1 Tablet(s) PO TID 05/21/2016 05/15/2017 Inactive enalapril maleate 10 mg tablet RxNorm: 792255 1 Tablet(s) PO daily 04/26/2016 08/30/2016 Inactive perphenazine-amitriptyline 2 mg-10 mg tablet RxNorm: 698284 2 Tablet(s) PO daily 04/26/2016 04/20/2017 Inactive fluticasone 50 mcg/actuation nasal spray,suspension RxNorm: 9682317 1 [place] NASAL daily 04/26/2016 07/25/2017 Inactive Synthroid 100 mcg tablet RxNorm: 166035 1 Tablet(s) PO daily 02/09/2016 01/25/2017 Inactive Synthroid 100 mcg tablet RxNorm: 557607 1 Tablet(s) PO daily 02/09/2016 02/08/2016 Inactive Keflex 500 mg capsule RxNorm: 210874 1 Capsule(s) PO TID 01/28/2016 02/01/2016 Inactive hydrochlorothiazide 25 mg tablet RxNorm: 301464 TAKE 1 TABLET DAILY 01/07/2016 08/30/2016 Inactive enalapril maleate 10 mg tablet RxNorm: 701106 1 Tablet(s) PO daily 12/26/2015 04/25/2016 Inactive hydrochlorothiazide 25 mg tablet RxNorm: 069638 1 Tablet(s) PO daily 12/08/2015 08/30/2016 Inactive omeprazole 40 mg capsule,delayed release RxNorm: 602879 1 Capsule(s) PO daily 12/08/2015 10/18/2016 Inactive simvastatin 20 mg tablet RxNorm: 408844 1 Tablet(s) PO QHS 11/14/2015 11/07/2016 Inactive alendronate 70 mg tablet RxNorm: 936545 1 Tablet(s) PO weekly 10/31/2015 10/24/2016 Inactive Synthroid 112 mcg tablet RxNorm: 271861 1 Tablet(s) PO daily 07/16/2015 02/08/2016 Inactive sucralfate 1 gram tablet RxNorm: 728793 1 Tablet(s) PO TID 06/17/2015 05/20/2016 Inactive perphenazine-amitriptyline 2 mg-10 mg tablet RxNorm: 106501 2 Tablet(s) PO daily 06/17/2015 04/25/2016 Inactive fluticasone 50 mcg/actuation nasal spray,suspension RxNorm: 1663575 1 [place] NASAL daily 06/17/2015 04/25/2016 Inactive fluorouracil 5 % topical cream RxNorm: 458087 APPLY 1 APPLICATION TOPICALLY TWO TIMES A DAY 06/16/2015 06/25/2015 Inactive fluticasone 50 mcg/actuation nasal spray,suspension RxNorm: 208918 1 [place] NASAL daily 06/12/2015 06/16/2015 Inactive atenolol 25 mg tablet RxNorm: 132327 1 Tablet(s) PO daily 05/14/2015 05/07/2016 Inactive Tricor 145 mg tablet RxNorm: 547617 1 Tablet(s) PO daily 04/23/2015 04/16/2016 Inactive Synthroid 125 mcg tablet RxNorm: 458524 1 Tablet(s) PO daily 03/31/2015 07/15/2015 Inactive fluorouracil 5 % topical cream RxNorm: 258961 1 Application TOP BID 03/31/2015 04/09/2015 Inactive Synthroid 137 mcg tablet RxNorm: 624130 1 Tablet(s) PO daily 12/25/2014 12/24/2014 Inactive Synthroid 137 mcg tablet RxNorm: 401521 1 Tablet(s) PO daily 12/25/2014 03/30/2015 Inactive Voltaren 1 % topical gel RxNorm: 438062 4 Gram(s) TOP QID 12/23/2014 04/21/2015 Inactive alendronate 70 mg tablet RxNorm: 656388 1 Tablet(s) PO weekly 12/23/2014 12/22/2014 Inactive alendronate 70 mg tablet RxNorm: 160175 1 Tablet(s) PO weekly 12/23/2014 10/30/2015 Inactive Fosamax 70 mg tablet RxNorm: 504896 1 Tablet(s) PO weekly QW 12/23/2014 01/27/2016 Inactive omeprazole 40 mg capsule,delayed release RxNorm: 457702 1 Capsule(s) PO daily 12/18/2014 12/07/2015 Inactive omeprazole 40 mg capsule,delayed release RxNorm: 650490 1 Capsule(s) PO daily 12/18/2014 12/17/2014 Inactive hydrochlorothiazide 25 mg tablet RxNorm: 743820 1 Tablet(s) PO daily 12/18/2014 12/17/2014 Inactive hydrochlorothiazide 25 mg tablet RxNorm: 726148 1 Tablet(s) PO daily 12/18/2014 12/07/2015 Inactive L-Lysine 1,000 mg tablet RxNorm: 609667 1 Tablet(s) PO daily No Start Date Active folic acid 400 mcg tablet RxNorm: 700373 1 Tablet(s) PO daily No Start Date Active B12 1000 mcg RxNorm: 1/2 Tablet(s) PO daily No Start Date Active Vitamin D3 1,000 unit chewable tablet RxNorm: 082150 1 Tablet(s) PO daily No Start Date Active metoprolol succinate ER 100 mg tablet,extended release 24 hr RxNorm: 406970 1 Tablet(s) PO daily No Start Date 09/16/2016 Inactive enalapril maleate 10 mg tablet RxNorm: 147151 1 Tablet(s) PO daily No Start Date 12/25/2015 Inactive perphenazine-amitriptyline 2 mg-10 mg tablet RxNorm: 180109 2 Tablet(s) PO daily No Start Date 06/16/2015 Inactive sucralfate 1 gram tablet RxNorm: 318382 1 Tablet(s) PO TID No Start Date 06/16/2015 Inactive hydrochlorothiazide 25 mg tablet RxNorm: 644568 1 Tablet(s) PO daily No Start Date 08/30/2016 Inactive vitamin E (dl, acetate) 400 unit capsule RxNorm: 146217 1 Capsule(s) PO daily No Start Date 03/05/2018 Inactive sotalol 80 mg tablet RxNorm: 2129252 1 Tablet(s) PO BID No Start Date 01/25/2017 Inactive Synthroid 150 mcg tablet RxNorm: 890749 1 Tablet(s) PO daily No Start Date 12/24/2014 Inactive diltiazem ER 120 mg capsule,24 hr,extended release RxNorm: 438313 1 Capsule(s) PO daily No Start Date 08/28/2018 Inactive simvastatin 20 mg tablet RxNorm: 237805 1 Tablet(s) PO daily No Start Date 11/13/2015 Inactive Vitamin C RxNorm: PO 1000mg qd No Start Date 03/05/2018 Inactive Fosamax 70 mg tablet RxNorm: 811735 1 Tablet(s) PO weekly No Start Date 12/22/2014 Inactive Tricor 145 mg tablet RxNorm: 461278 1 Tablet(s) PO daily No Start Date 04/22/2015 Inactive diltiazem ER 180 mg capsule,24 hr,extended release RxNorm: 699236 1 Capsule(s) PO daily No Start Date 03/05/2018 Inactive diltiazem 120 mg tablet RxNorm: 942830 1 Tablet(s) PO daily No Start Date 08/29/2018 Inactive diltiazem ER 240 mg capsule,extended release RxNorm: 069774 1 Capsule(s) PO BID No Start Date 01/25/2017 Inactive Eliquis 5 mg tablet RxNorm: 2696807 1 Tablet(s) PO BID No Start Date 01/25/2017 Inactive fluticasone 50 mcg/actuation nasal spray,suspension RxNorm: 856835 1 [place] NASAL daily No Start Date 06/11/2015 Inactive atenolol 25 mg tablet RxNorm: 592078 1 Tablet(s) PO daily No Start Date 05/13/2015 Inactive Medication Administered Medication Codes Instructions Start Date Status Kenalog 40 mg/mL suspension for injection RxNorm: 2295928 1Milliliter 08/12/2016 No longer Active Immunizations Vaccine Codes Date Status Influenza CVX: 141 03/21/2018 completed Influenza CVX: 141 02/09/2017 completed Pneumococcal (Adult) CVX: 133 02/09/2017 completed Influenza CVX: 141 01/28/2016 completed Zoster CVX: 121 07/22/2011 completed Pneumococcal CVX: 33 11/20/2008 completed Assessments Condition Codes Effective Dates 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 ICD-9: 244.8 12/21/2018 Essential (primary) hypertension ICD-10: I10 ICD-9: 401.9 12/21/2018 Other iron deficiency anemias ICD-10: D50.8 ICD-9: 280.1 11/20/2018 Cough ICD-10: R05 ICD-9: 786.2 11/20/2018 Pain in right hip ICD-10: M25.551 ICD-9: 719.45 08/21/2018 Tobacco abuse counseling ICD-10: Z71.6 ICD-9: V65.42 07/17/2018 Chronic atrial fibrillation ICD-10: I48.2 ICD-9: 427.31 07/17/2018 Other insomnia ICD-10: G47.09 ICD-9: 327.09 06/05/2018 Allergic urticaria ICD-10: L50.0 ICD-9: 708.0 06/05/2018 Other specified anemias ICD-10: D64.89 ICD-9: 285.8 06/05/2018 Encounter for general adult medical examination with abnormal findings ICD-10: Z00.01 ICD-9: V70.0 05/05/2018 Nonrheumatic aortic (valve) stenosis ICD-10: I35.0 ICD-9: 424.1 04/03/2018 Age-related osteoporosis without current pathological fracture ICD-10: M81.0 ICD-9: 733.00 03/06/2018 Dysuria ICD-10: R30.0 ICD-9: 788.1 02/22/2018 Low back pain ICD-10: M54.5 ICD-9: 724.2 02/22/2018 Gastro-esophageal reflux disease without esophagitis ICD-10: K21.9 ICD-9: 530.81 02/22/2018 Epigastric pain ICD-10: R10.13 ICD-9: 789.06 12/13/2017 [...] on feet ICD-10: R26.81 ICD-9: 781.2 02/07/2017 Mixed hyperlipidemia ICD-10: E78.2 ICD-9: 272.4 10/19/2016 Sacroiliitis, not elsewhere classified ICD-10: M46.1 ICD-9: 720.2 08/12/2016 Hypothyroidism, unspecified ICD-10: E03.9 ICD-9: 244.9 01/28/2016 Encounter for immunization ICD-10: Z23 ICD-9: V04.81 01/28/2016 Cellulitis of left lower limb ICD-10: L03.116 ICD-9: 682.6 01/28/2016 Other obesity due to excess calories ICD-10: E66.09 ICD-9: 278.00 07/29/2015 Diarrhea, unspecified ICD-10: R19.7 ICD-9: 787.91 07/29/2015 Actinic keratosis ICD-10: L57.0 ICD-9: 702.0 03/31/2015 Osteoporosis ICD-9: 733.00 12/23/2014 Sacroiliitis ICD-9: 720.2 12/23/2014 HYPOTHYROIDISM ICD-9: 244.9 12/23/2014 OSTEOARTH NOS-UNSPEC ICD-9: 715.90 12/23/2014 ESSENTIAL HYPERTENSION ICD-9: 401.9 12/23/2014 HYPERLIPIDEMIA ICD-9: 272.4 12/23/2014 Reason For Visit Reason For Visit Effective Dates Notes hypertension 12/21/2018 hypertension 11/20/2018 hypertension 08/21/2018 hypertension 07/17/2018 hypertension 06/05/2018 Annual Medicare Wellness Exam 05/05/2018 hypertension 04/03/2018 [...] Result Date Cbc With Differential Ord2 WBC 7.19 K/ul 11/20/2018 Cbc With Differential Ord2 RBC 4.05 M/ul 11/20/2018 Cbc With Differential Ord2 HGB 12.8 g/dl 11/20/2018 Cbc With Differential Ord2 HCT 37.8 % 11/20/2018 Cbc With Differential Ord2 Neut% 71.5 % 11/20/2018 Cbc With Differential Ord2 MCV 93.3 fl 11/20/2018 Cbc With Differential Ord2 Lymph% 16.6 % 11/20/2018 Cbc With Differential Ord2 MCH 31.6 pg 11/20/2018 Cbc With Differential Ord2 [place]% 8.6 % 11/20/2018 Cbc With Differential Ord2 Eos% 2.9 % 11/20/2018 Cbc With Differential Ord2 MCHC 33.9 pg 11/20/2018 Cbc With Differential Ord2 Baso% 0.4 % 11/20/2018 Cbc With Differential Ord2 PLT 338 K/ul 11/20/2018 Cbc With Differential Ord2 Neut ABS# 5.14 K/ul 11/20/2018 Cbc With Differential Ord2 RDW 16.8 % 11/20/2018 Cbc With Differential Ord2 Lymph ABS# 1.19 K/ul 11/20/2018 Cbc With Differential Ord2 [place] ABS# 0.6 K/ul 11/20/2018 Cbc With Differential Ord2 Eos ABS# 0.2 K/ul 11/20/2018 Cbc With Differential Ord2 Baso ABS# 0.0 K/ul 11/20/2018 Tibc Ord40 Iron 63 ug/dl 09/20/2018 Tibc Ord40 UIBC 402 ug/dL 09/20/2018 Tibc Ord40 TIBC 465 ug/dL 09/20/2018 Tibc Ord40 Fe-%Sat 13.5 % 09/20/2018 Cbc With Differential Ord2 WBC 4.82 K/ul 09/20/2018 Cbc With Differential Ord2 RBC 4.70 M/ul 09/20/2018 Cbc With Differential Ord2 HGB 13.1 g/dl 09/20/2018 Cbc With Differential Ord2 HCT 40.3 % 09/20/2018 Cbc With Differential Ord2 Neut% 56.5 % 09/20/2018 Cbc With Differential Ord2 Lymph% 26.3 % 09/20/2018 Cbc With Differential Ord2 MCV 85.7 fl 09/20/2018 Cbc With Differential Ord2 [place]% 14.1 % 09/20/2018 Cbc With Differential Ord2 MCH 27.9 pg 09/20/2018 Cbc With Differential Ord2 MCHC 32.5 pg 09/20/2018 Cbc With Differential Ord2 Eos% 2.7 % 09/20/2018 Cbc With Differential Ord2 PLT 356 K/ul 09/20/2018 Cbc With Differential Ord2 Baso% 0.4 % 09/20/2018 Cbc With Differential Ord2 RDW 24.0 % 09/20/2018 Cbc With Differential Ord2 Neut ABS# 2.72 K/ul 09/20/2018 Cbc With Differential Ord2 Lymph ABS# 1.27 K/ul 09/20/2018 Cbc With Differential Ord2 [place] ABS# 0.7 K/ul 09/20/2018 Cbc With Differential Ord2 Eos ABS# 0.1 K/ul 09/20/2018 Cbc With Differential Ord2 Baso ABS# 0.0 K/ul 09/20/2018 Tsh Ord6 TSH (3rd IS) 0.97 uIU/mL 08/14/2018 Tibc Ord40 Iron 90 ug/dl 08/14/2018 Tibc Ord40 UIBC 380 ug/dL 08/14/2018 Tibc Ord40 TIBC 470 ug/dL 08/14/2018 Tibc Ord40 Fe-%Sat 19.1 % 08/14/2018 Comp Metabolic Tzt164 NA 136 mEq/L 08/14/2018 Comp Metabolic Kdm851 K 4.3 mEq/L 08/14/2018 Comp Metabolic Ehg238 CL 100 mEq/L 08/14/2018 Comp Metabolic Gey591 CO2 28.0 mEq/L 08/14/2018 Comp Metabolic Gex182 ANION GAP 12 08/14/2018 Comp Metabolic Rae882 GLUCOSE 111 mg/dL 08/14/2018 Comp Metabolic Ycu700 Creat 0.9 mg/dL 08/14/2018 Comp Metabolic Wlp920 eGFR 66 ml/min/1.73m2 08/14/2018 Comp Metabolic Wti654 BUN 22 mg/dL 08/14/2018 Comp Metabolic Xas871 B/C Ratio 25.3 Ratio 08/14/2018 Comp Metabolic Ips835 CALCIUM 10.1 mg/dL 08/14/2018 Comp Metabolic Sbu585 ALK PHOS 45 U/L 08/14/2018 Comp Metabolic Pyp824 AST(SGOT) 16 U/L 08/14/2018 Comp Metabolic Onp725 ALT(SGPT) 7 U/L 08/14/2018 Comp Metabolic Btc454 BILI T 0.4 mg/dL 08/14/2018 Comp Metabolic Gqm490 ALBUMIN 4.0 g/dL 08/14/2018 Comp Metabolic Hye273 TPRO 7.0 g/dL 08/14/2018 Comp Metabolic Xxx652 GLOB 3.0 g/dL 08/14/2018 Comp Metabolic Ial571 A/G Ratio 1.3 Ratio 08/14/2018 Comp Metabolic Qnb147 Osmo 276 mOsmo 08/14/2018 Cbc With Differential Ord2 WBC 5.95 K/ul 08/14/2018 Cbc With Differential Ord2 RBC 4.77 M/ul 08/14/2018 Cbc With Differential Ord2 HGB 12.5 g/dl 08/14/2018 Cbc With Differential Ord2 Neut% 73.0 % 08/14/2018 Cbc With Differential Ord2 HCT 40.3 % 08/14/2018 Cbc With Differential Ord2 Lymph% 15.6 % 08/14/2018 Cbc With Differential Ord2 MCV 84.5 fl 08/14/2018 Cbc With Differential Ord2 MCH 26.2 pg 08/14/2018 Cbc With Differential Ord2 [place]% 9.1 % 08/14/2018 Cbc With Differential Ord2 Eos% 1.8 % 08/14/2018 Cbc With Differential Ord2 MCHC 31.0 pg 08/14/2018 Cbc With Differential Ord2 PLT 293 K/ul 08/14/2018 Cbc With Differential Ord2 Baso% 0.5 % 08/14/2018 Cbc With Differential Ord2 Neut ABS# 4.34 K/ul 08/14/2018 Cbc With Differential Ord2 Lymph ABS# 0.93 K/ul 08/14/2018 Cbc With Differential Ord2 [place] ABS# 0.5 K/ul 08/14/2018 Cbc With Differential Ord2 Eos ABS# 0.1 K/ul 08/14/2018 Cbc With Differential Ord2 Baso ABS# 0.0 K/ul 08/14/2018 Free T4 [id number] FREE T4 1.00 ng/dL 08/14/2018 Tibc Ord40 Iron 14 ug/dl 07/13/2018 Tibc Ord40 UIBC 491 ug/dL 07/13/2018 Tibc Ord40 TIBC 505 ug/dL 07/13/2018 Tibc Ord40 Fe-%Sat 2.8 % 07/13/2018 Hgb & Hct Ord65 HGB 8.1 g/dl 07/13/2018 Hgb & Hct Ord65 HCT 27.0 % 07/13/2018 Ferritin Ord22 FERRITIN 4.3 ng/mL 07/13/2018 Cbc With Differential Ord2 WBC 6.19 K/ul 06/21/2018 Cbc With Differential Ord2 RBC 3.13 M/ul 06/21/2018 Cbc With Differential Ord2 HGB 7.8 g/dl 06/21/2018 Cbc With Differential Ord2 HCT 25.5 % 06/21/2018 Cbc With Differential Ord2 Neut% 60.0 % 06/21/2018 Cbc With Differential Ord2 MCV 81.5 fl 06/21/2018 Cbc With Differential Ord2 Lymph% 21.8 % 06/21/2018 Cbc With Differential Ord2 MCH 24.9 pg 06/21/2018 Cbc With Differential Ord2 [place]% 15.0 % 06/21/2018 Cbc With Differential Ord2 MCHC 30.6 pg 06/21/2018 Cbc With Differential Ord2 Eos% 2.6 % 06/21/2018 Cbc With Differential Ord2 PLT 136 K/ul 06/21/2018 Cbc With Differential Ord2 Baso% 0.6 % 06/21/2018 Cbc With Differential Ord2 RDW 17.3 % 06/21/2018 Cbc With Differential Ord2 Neut ABS# 3.71 K/ul 06/21/2018 Cbc With Differential Ord2 Lymph ABS# 1.35 K/ul 06/21/2018 Cbc With Differential Ord2 [place] ABS# 0.9 K/ul 06/21/2018 Cbc With Differential Ord2 Eos ABS# 0.2 K/ul 06/21/2018 Cbc With Differential Ord2 Baso ABS# 0.0 K/ul 06/21/2018 Hgb & Hct Ord65 HGB 8.7 g/dl 06/12/2018 Hgb & Hct Ord65 HCT 28.2 % 06/12/2018 Metabolic Ord15 NA 133 mEq/L 06/01/2018 Metabolic Ord15 K 3.6 mEq/L 06/01/2018 Metabolic Ord15 CL 100 mEq/L 06/01/2018 Metabolic Ord15 CO2 27.0 mEq/L 06/01/2018 Metabolic Ord15 GLUCOSE 109 mg/dL 06/01/2018 Metabolic Ord15 BUN 17 mg/dL 06/01/2018 Metabolic Ord15 Creat 0.8 mg/dL 06/01/2018 Metabolic Ord15 B/C Ratio 21.5 Ratio 06/01/2018 Metabolic Ord15 eGFR 74 ml/min/1.73m2 06/01/2018 Metabolic Ord15 Osmo 269 mOsmo 06/01/2018 Metabolic Ord15 ANION GAP 10 06/01/2018 Metabolic Ord15 CALCIUM 8.8 mg/dL 06/01/2018 Tibc Ord40 Iron 15 ug/dl 06/01/2018 Tibc Ord40 UIBC 593 ug/dL 06/01/2018 Tibc Ord40 TIBC 608 ug/dL 06/01/2018 Tibc Ord40 Fe-%Sat 2.5 % 06/01/2018 Cbc With Differential Ord2 WBC 5.16 K/ul 06/01/2018 Cbc With Differential Ord2 RBC 2.73 M/ul 06/01/2018 Cbc With Differential Ord2 HGB 6.8 Result Verified By Repeat Analysis g/dl 06/01/2018 Cbc With Differential Ord2 HCT 21.7 % 06/01/2018 Cbc With Differential Ord2 Neut% 66.4 % 06/01/2018 Cbc With Differential Ord2 MCV 79.5 fl 06/01/2018 Cbc With Differential Ord2 Lymph% 15.7 % 06/01/2018 Cbc With Differential Ord2 MCH 24.9 pg 06/01/2018 Cbc With Differential Ord2 [place]% 12.8 % 06/01/2018 Cbc With Differential Ord2 MCHC 31.3 pg 06/01/2018 Cbc With Differential Ord2 Eos% 3.9 % 06/01/2018 Cbc With Differential Ord2 PLT 492 K/ul 06/01/2018 Cbc With Differential Ord2 Baso% 1.2 % 06/01/2018 Cbc With Differential Ord2 RDW 14.8 % 06/01/2018 Cbc With Differential Ord2 Neut ABS# 3.43 K/ul 06/01/2018 Cbc With Differential Ord2 Lymph ABS# 0.81 K/ul 06/01/2018 Cbc With Differential Ord2 [place] ABS# 0.7 K/ul 06/01/2018 Cbc With Differential Ord2 Eos ABS# 0.2 K/ul 06/01/2018 Cbc With Differential Ord2 Baso ABS# 0.1 K/ul 06/01/2018 Cbc With Differential Ord2 WBC 5.88 K/ul 03/17/2018 Cbc With Differential Ord2 RBC 3.88 M/ul 03/17/2018 Cbc With Differential Ord2 HGB 11.6 g/dl 03/17/2018 Cbc With Differential Ord2 HCT 36.3 % 03/17/2018 Cbc With Differential Ord2 Neut% 68.0 % 03/17/2018 Cbc With Differential Ord2 MCV 93.6 fl 03/17/2018 Cbc With Differential Ord2 Lymph% 15.3 % 03/17/2018 Cbc With Differential Ord2 MCH 29.9 pg 03/17/2018 Cbc With Differential Ord2 [place]% 13.3 % 03/17/2018 Cbc With Differential Ord2 MCHC 32.0 pg 03/17/2018 Cbc With Differential Ord2 Eos% 2.9 % 03/17/2018 Cbc With Differential Ord2 PLT 369 K/ul 03/17/2018 Cbc With Differential Ord2 Baso% 0.5 % 03/17/2018 Cbc With Differential Ord2 RDW 14.9 % 03/17/2018 Cbc With Differential Ord2 Neut ABS# 4.00 K/ul 03/17/2018 Cbc With Differential Ord2 Lymph ABS# 0.90 K/ul 03/17/2018 Cbc With Differential Ord2 [place] ABS# 0.8 K/ul 03/17/2018 Cbc With Differential Ord2 Eos ABS# 0.2 K/ul 03/17/2018 Cbc With Differential Ord2 Baso ABS# 0.0 K/ul 03/17/2018 Urine Culture Ucult Preliminary NO Growth Day 1 02/24/2018 Urine Culture Ucult Complete NO Growth Day 2 02/24/2018 Cbc With Differential Ord2 WBC 5.92 [...] 30.2 pg 02/22/2018 Cbc With Differential Ord2 [place]% 11.5 % 02/22/2018 Cbc With Differential Ord2 [...] 0.86 K/ul 02/22/2018 Cbc With Differential Ord2 [place] ABS# 0.7 K/ul 02/22/2018 Cbc With Differential Ord2 Eos ABS# 0.2 K/ul 02/22/2018 Cbc With Differential Ord2 Baso ABS# 0.1 K/ul 02/22/2018 Tsh Ord6 TSH (3rd IS) 0.66 uIU/mL 02/22/2018 Free T4 Aws444 FREE T4 1.22 ng/dL 02/22/2018 Comp Metabolic Flh101 NA 136 mEq/L 02/22/2018 Comp Metabolic Mgj239 K 4.4 mEq/L 02/22/2018 Comp Metabolic Kil486 CL 102 mEq/L 02/22/2018 Comp Metabolic Rtg777 CO2 23.0 mEq/L 02/22/2018 Comp Metabolic Tjm704 ANION GAP 15 02/22/2018 Comp Metabolic Qkq960 GLUCOSE 94 mg/dL 02/22/2018 Comp Metabolic Gfj463 Creat 1.2 mg/dL 02/22/2018 Comp Metabolic Dyw056 eGFR 46 ml/min/1.73m2 02/22/2018 Comp Metabolic Jst874 BUN 31 mg/dL 02/22/2018 Comp Metabolic Mkj893 B/C Ratio 25.8 Ratio 02/22/2018 Comp Metabolic Dad931 CALCIUM 9.2 mg/dL 02/22/2018 Comp Metabolic Ulf421 ALK PHOS 34 U/L 02/22/2018 Comp Metabolic Khw699 AST(SGOT) 18 U/L 02/22/2018 Comp Metabolic Oit687 ALT(SGPT) 8 U/L 02/22/2018 Comp Metabolic Vdy609 BILI T 0.4 mg/dL 02/22/2018 Comp Metabolic Cjg285 ALBUMIN 3.6 g/dL 02/22/2018 Comp Metabolic Scz413 TPRO 6.2 g/dL 02/22/2018 Comp Metabolic Vtx242 GLOB 2.6 g/dL 02/22/2018 Comp Metabolic Daq099 A/G Ratio 1.4 Ratio 02/22/2018 Comp Metabolic Zjg119 Osmo 278 mOsmo 02/22/2018 Free T4 Rjb773 FREE T4 1.11 ng/dL 10/27/2017 Lipid Ord30 [...] 23.3 % 10/27/2017 Cbc With Differential Ord2 MCH 30.7 pg 10/27/2017 Cbc With Differential Ord2 [place]% 11.3 % 10/27/2017 Cbc With Differential Ord2 MCHC 32.6 pg 10/27/2017 Cbc With Differential Ord2 Eos% 3.8 % 10/27/2017 Cbc With Differential Ord2 PLT 364 K/ul 10/27/2017 Cbc With Differential Ord2 Baso% 0.6 % 10/27/2017 Cbc With Differential Ord2 RDW 16.5 % 10/27/2017 Cbc With Differential Ord2 Neut ABS# 3.03 K/ul 10/27/2017 Cbc With Differential Ord2 Lymph ABS# 1.16 K/ul 10/27/2017 Cbc With Differential Ord2 [place] ABS# 0.6 K/ul 10/27/2017 Cbc With Differential Ord2 Eos ABS# 0.2 K/ul 10/27/2017 Cbc With Differential Ord2 Baso ABS# 0.0 K/ul 10/27/2017 Comp Metabolic Rub005 NA 135 mEq/L 10/27/2017 Comp Metabolic Mqr076 K 4.7 mEq/L 10/27/2017 Comp Metabolic Jxi394 CL 101 mEq/L 10/27/2017 Comp Metabolic Ojl567 CO2 23.0 mEq/L 10/27/2017 Comp Metabolic Hry659 ANION GAP 16 10/27/2017 Comp Metabolic Swr308 GLUCOSE 84 mg/dL 10/27/2017 Comp Metabolic Kdn744 Creat 1.2 mg/dL 10/27/2017 Comp Metabolic Obs802 eGFR 46 ml/min/1.73m2 10/27/2017 Comp Metabolic Piz363 BUN 30 mg/dL 10/27/2017 Comp Metabolic Aem974 B/C Ratio 25.2 Ratio 10/27/2017 Comp Metabolic Ujt577 CALCIUM 9.4 mg/dL 10/27/2017 Comp Metabolic Nlw635 ALK PHOS 30 U/L 10/27/2017 Comp Metabolic Bgt434 AST(SGOT) 25 U/L 10/27/2017 Comp Metabolic Vgj506 ALT(SGPT) 12 U/L 10/27/2017 Comp Metabolic Zbn902 BILI T 0.5 mg/dL 10/27/2017 Comp Metabolic Cux850 ALBUMIN 3.7 g/dL 10/27/2017 Comp Metabolic Gnp316 TPRO 6.5 g/dL 10/27/2017 Comp Metabolic Svl232 GLOB 2.8 g/dL 10/27/2017 Comp Metabolic Kqt427 A/G Ratio 1.3 Ratio 10/27/2017 Comp Metabolic Fqq323 Osmo 275 mOsmo 10/27/2017 Hgb & Hct Ord65 HGB 12.2 g/dl 07/29/2017 Hgb & Hct Ord65 HCT 38.8 % 07/29/2017 Tibc Ord40 Iron 79 ug/dl 07/26/2017 Tibc Ord40 UIBC 380 ug/dL 07/26/2017 Tibc Ord40 TIBC 459 ug/dL 07/26/2017 Tibc Ord40 Fe-%Sat 17.2 % 07/26/2017 Tsh Ord6 TSH (3rd IS) 0.46 uIU/mL 07/26/2017 Ferritin Ord22 FERRITIN 83.6 ng/mL 07/26/2017 Free T4 Yoc767 FREE T4 1.00 ng/dL 07/26/2017 Tibc Ord40 [...] 31.0 pg 08/02/2016 Cbc With Differential Ord2 [place]% 9.4 % 08/02/2016 Cbc With Differential Ord2 MCHC 32.8 pg 08/02/2016 Cbc With Differential Ord2 Eos% 3.2 % 08/02/2016 Cbc With Differential Ord2 PLT 152 K/ul 08/02/2016 Cbc With Differential Ord2 Baso% 0.9 % 08/02/2016 Cbc With Differential Ord2 RDW 16.0 % 08/02/2016 Cbc With Differential Ord2 Neut ABS# 5.35 K/ul 08/02/2016 Cbc With Differential Ord2 Lymph ABS# 1.44 K/ul 08/02/2016 Cbc With Differential Ord2 [place] ABS# 0.7 K/ul 08/02/2016 Cbc With Differential Ord2 Eos ABS# 0.3 K/ul 08/02/2016 Cbc With Differential Ord2 Baso ABS# 0.1 K/ul 08/02/2016 Lipid Ord30 CHOL 142 mg/dL 08/02/2016 Lipid Ord30 HDL 40.0 mg/dl 08/02/2016 Lipid Ord30 TRIG 169 mg/dL 08/02/2016 Lipid Ord30 LDL 68 mg/dL 08/02/2016 Lipid Ord30 C/HDL 3.6 Ratio 08/02/2016 Comp Metabolic Mmd819 NA 139 mEq/L 08/02/2016 Comp Metabolic Has388 K 5.2 mEq/L 08/02/2016 Comp Metabolic Giq205 CL 108 mEq/L 08/02/2016 Comp Metabolic Wvp445 CO2 22.0 mEq/L 08/02/2016 Comp Metabolic Igf633 ANION GAP 14 08/02/2016 Comp Metabolic Gga300 GLUCOSE 103 mg/dL 08/02/2016 Comp Metabolic Bvs774 Creat 1.1 mg/dL 08/02/2016 Comp Metabolic Qlt683 eGFR 54 ml/min/1.73m2 08/02/2016 Comp Metabolic Mbm172 BUN 26 mg/dL 08/02/2016 Comp Metabolic Hzd294 B/C Ratio 24.8 Ratio 08/02/2016 Comp Metabolic Wqb038 CALCIUM 9.4 mg/dL 08/02/2016 Comp Metabolic Mym643 ALK PHOS 41 U/L 08/02/2016 Comp Metabolic Xqa536 AST(SGOT) 18 U/L 08/02/2016 Comp Metabolic Lci575 ALT(SGPT) 10 U/L 08/02/2016 Comp Metabolic Ste200 BILI T 0.3 mg/dL 08/02/2016 Comp Metabolic Ypr639 ALBUMIN 3.7 g/dL 08/02/2016 Comp Metabolic Ude319 TPRO 6.5 g/dL 08/02/2016 Comp Metabolic Eey288 GLOB 2.8 g/dL 08/02/2016 Comp Metabolic Ilx703 A/G Ratio 1.3 Ratio 08/02/2016 Comp Metabolic Syb322 Osmo 283 mOsmo 08/02/2016 Free T4 Adf415 FREE T4 1.08 ng/dL 08/02/2016 Tsh Ord6 hTSH II 0.35 uIU/mL 05/13/2016 Free T4 Wwr698 FREE T4 0.78 ng/dL 05/13/2016 Free T4 Iql889 FREE T4 1.13 ng/dL 01/28/2016 Tsh Ord6 hTSH II 0.19 uIU/mL 01/28/2016 Cbc With Differential Ord2 WBC 7.49 K/ul 07/14/2015 Cbc With Differential Ord2 RBC 4.20 M/ul 07/14/2015 Cbc With Differential Ord2 HGB 12.7 g/dl 07/14/2015 Cbc With Differential Ord2 HCT 39.1 % 07/14/2015 Cbc With Differential Ord2 Neut% 63.9 % 07/14/2015 Cbc With Differential Ord2 MCV 93.1 fl 07/14/2015 Cbc With Differential Ord2 Lymph% 24.0 % 07/14/2015 Cbc With Differential Ord2 MCH 30.2 pg 07/14/2015 Cbc With Differential Ord2 [place]% 9.1 % 07/14/2015 Cbc With Differential Ord2 MCHC 32.5 pg 07/14/2015 Cbc With Differential Ord2 Eos% 2.5 % 07/14/2015 Cbc With Differential Ord2 PLT 344 K/ul 07/14/2015 Cbc With Differential Ord2 Baso% 0.5 % 07/14/2015 Cbc With Differential Ord2 RDW 15.1 % 07/14/2015 Cbc With Differential Ord2 Neut ABS# 4.78 K/ul 07/14/2015 Cbc With Differential Ord2 Lymph ABS# 1.80 K/ul 07/14/2015 Cbc With Differential Ord2 [place] ABS# 0.7 K/ul 07/14/2015 Cbc With Differential [...] Ord30 C/HDL 3.0 Ratio 07/14/2015 Comp Metabolic Fyl102 NA 136 mEq/L 07/14/2015 Comp Metabolic Ijg485 K 4.4 mEq/L 07/14/2015 Comp Metabolic Joe322 CL 101 mEq/L 07/14/2015 Comp Metabolic Jsn051 CO2 27.0 mEq/L 07/14/2015 Comp Metabolic Pjb353 ANION GAP 12 07/14/2015 Comp Metabolic Gzc614 GLUCOSE 97 mg/dL 07/14/2015 Comp Metabolic Igp132 Creat 1.0 mg/dL 07/14/2015 Comp Metabolic Prn702 eGFR 56 ml/min/1.73m2 07/14/2015 Comp Metabolic Hup060 BUN 27 mg/dL 07/14/2015 Comp Metabolic Oqe909 B/C Ratio 26.7 Ratio 07/14/2015 Comp Metabolic Ypd211 CALCIUM 9.3 mg/dL 07/14/2015 Comp Metabolic Daz369 ALK PHOS 33 U/L 07/14/2015 Comp Metabolic Qhy477 AST(SGOT) 14 U/L 07/14/2015 Comp Metabolic Qxu164 ALT(SGPT) 8 U/L 07/14/2015 Comp Metabolic Pln121 BILI T 0.4 mg/dL 07/14/2015 Comp Metabolic Htz330 ALBUMIN 3.8 g/dL 07/14/2015 Comp Metabolic Aps504 TPRO 6.6 g/dL 07/14/2015 Comp Metabolic Lad683 GLOB 2.8 g/dL 07/14/2015 Comp Metabolic Ftx513 A/G Ratio 1.4 Ratio 07/14/2015 Comp Metabolic Dbd466 Osmo 277 mOsmo 07/14/2015 Tsh Ord6 hTSH II 0.23 uIU/mL 07/14/2015 Free T4 Zid875 FREE T4 1.19 ng/dL 07/14/2015 Cbc With [...] Ord30 C/HDL 3.4 Ratio 03/26/2015 Comp Metabolic Csk142 NA 135 mEq/L 03/26/2015 Comp Metabolic Jxx648 K 5.0 mEq/L 03/26/2015 Comp Metabolic Tti769 CL 99 mEq/L 03/26/2015 Comp Metabolic Kyu481 CO2 27.0 mEq/L 03/26/2015 Comp Metabolic Ygk958 ANION GAP 14 03/26/2015 Comp Metabolic Dzi142 GLUCOSE 88 mg/dL 03/26/2015 Comp Metabolic Ruf287 Creat 1.1 mg/dL 03/26/2015 Comp Metabolic Aqz296 eGFR 50 ml/min/1.73m2 03/26/2015 Comp Metabolic Rpf032 BUN 27 mg/dL 03/26/2015 Comp Metabolic Lcm545 B/C Ratio 24.1 Ratio 03/26/2015 Comp Metabolic Cjg725 CALCIUM 9.9 mg/dL 03/26/2015 Comp Metabolic Amu128 ALK PHOS 30 U/L 03/26/2015 Comp Metabolic Scv516 AST(SGOT) 16 U/L 03/26/2015 Comp Metabolic Euf737 ALT(SGPT) 8 U/L 03/26/2015 Comp Metabolic Cgw953 BILI T 0.4 mg/dL 03/26/2015 Comp Metabolic Jyn642 ALBUMIN 3.9 g/dL 03/26/2015 Comp Metabolic Jzx824 TPRO 6.4 g/dL 03/26/2015 Comp Metabolic Fes062 GLOB 2.5 g/dL 03/26/2015 Comp Metabolic Eoq134 A/G Ratio 1.6 Ratio 03/26/2015 Comp Metabolic Hfo810 Osmo 275 mOsmo 03/26/2015 Free T4 Kem559 FREE T4 1.22 ng/dL 03/26/2015 Tsh Ord6 hTSH II 0.20 uIU/mL 03/26/2015 Vitamin D 25 Oh Pds9278 VITAMIN D, 25 HYDROXY 51.09 ng/mL 12/25/2014 Tsh Ord6 hTSH II 0.09 uIU/mL 12/23/2014 Free T4 Hql094 FREE T4 1.30 ng/dL 12/23/2014 Comp Metabolic Yzq677 NA 135 mEq/L 12/23/2014 Comp Metabolic Jua147 K 4.7 mEq/L 12/23/2014 Comp Metabolic Ryu408 CL 100 mEq/L 12/23/2014 Comp Metabolic Ubz261 CO2 23.0 mEq/L 12/23/2014 Comp Metabolic Cky545 ANION GAP 17 12/23/2014 Comp Metabolic Qef629 GLUCOSE 93 mg/dL 12/23/2014 Comp Metabolic Tsf839 Creat 1.1 mg/dL 12/23/2014 Comp Metabolic Ygf661 eGFR 53 ml/min/1.73m2 12/23/2014 Comp Metabolic Xyq130 BUN 26 mg/dL 12/23/2014 Comp Metabolic Ajw079 B/C Ratio 24.3 Ratio 12/23/2014 Comp Metabolic Kuy125 CALCIUM 9.5 mg/dL 12/23/2014 Comp Metabolic Tip944 ALK PHOS 27 U/L 12/23/2014 Comp Metabolic Jfr656 AST(SGOT) 16 U/L 12/23/2014 Comp Metabolic Ait493 ALT(SGPT) 8 U/L 12/23/2014 Comp Metabolic Khr149 BILI T 0.4 mg/dL 12/23/2014 Comp Metabolic Wqb001 ALBUMIN 3.9 g/dL 12/23/2014 Comp Metabolic Omx123 TPRO 6.7 g/dL 12/23/2014 Comp Metabolic Pfk218 GLOB 2.8 g/dL 12/23/2014 Comp Metabolic Sky877 A/G Ratio 1.4 Ratio 12/23/2014 Comp Metabolic Wlo843 Osmo 275 mOsmo 12/23/2014 Review of Systems System Result Effective Dates Constitutional No recent illness 12/21/2018 Constitutional No chills 12/21/2018 Constitutional No diaphoresis 12/21/2018 Constitutional fatigue 12/21/2018 Constitutional No fever 12/21/2018 Eyes No blindness 12/21/2018 Eyes No vision change 12/21/2018 Ears/Nose/Throat/Neck No nasal allergies 12/21/2018 Ears/Nose/Throat/Neck No nasal discharge 12/21/2018 Cardiovascular arrhythmia 12/21/2018 Cardiovascular No chest pain/pressure 12/21/2018 Cardiovascular No dyspnea 12/21/2018 Cardiovascular fatigue 12/21/2018 Cardiovascular hypertension 12/21/2018 Respiratory No chest congestion 12/21/2018 Respiratory cigarette smoking 12/21/2018 Respiratory No cough 12/21/2018 Gastrointestinal No abdominal pain 12/21/2018 Gastrointestinal No constipation 12/21/2018 Gastrointestinal diarrhea 12/21/2018 Gastrointestinal gastroesophageal reflux 12/21/2018 Gastrointestinal No nausea 12/21/2018 Gastrointestinal No vomiting 12/21/2018 Genitourinary/Nephrology No dysuria 12/21/2018 Genitourinary/Nephrology No urinary urgency 12/21/2018 Musculoskeletal stiffness 12/21/2018 Musculoskeletal No swelling 12/21/2018 Musculoskeletal joint complaint 12/21/2018 Musculoskeletal No muscle weakness 12/21/2018 Musculoskeletal No myalgias 12/21/2018 Dermatologic erythema 12/21/2018 Dermatologic mole change 12/21/2018 Dermatologic No rash 12/21/2018 Psychiatric No anxiety 12/21/2018 Psychiatric No depression 12/21/2018 Psychiatric No confusion 12/21/2018 Hematologic/Lymphatic anemia 12/21/2018 Constitutional recent illness 11/20/2018 Constitutional No chills 11/20/2018 Constitutional No diaphoresis 11/20/2018 Constitutional fatigue 11/20/2018 Constitutional No fever 11/20/2018 Eyes No blindness 11/20/2018 Eyes No vision change 11/20/2018 Ears/Nose/Throat/Neck No nasal allergies 11/20/2018 Ears/Nose/Throat/Neck No nasal discharge 11/20/2018 Cardiovascular arrhythmia 11/20/2018 Cardiovascular No chest pain/pressure 11/20/2018 Cardiovascular No dyspnea 11/20/2018 Cardiovascular fatigue 11/20/2018 Cardiovascular hypertension 11/20/2018 Respiratory No chest congestion 11/20/2018 Respiratory cigarette smoking 11/20/2018 Respiratory No cough 11/20/2018 Gastrointestinal No abdominal pain 11/20/2018 Gastrointestinal No constipation 11/20/2018 Gastrointestinal No diarrhea 11/20/2018 Gastrointestinal gastroesophageal reflux 11/20/2018 Gastrointestinal No nausea 11/20/2018 Gastrointestinal No vomiting 11/20/2018 Genitourinary/Nephrology No dysuria 11/20/2018 Genitourinary/Nephrology No urinary urgency 11/20/2018 Musculoskeletal stiffness 11/20/2018 Musculoskeletal No swelling 11/20/2018 Musculoskeletal muscle weakness 11/20/2018 Musculoskeletal No myalgias 11/20/2018 Dermatologic No erythema 11/20/2018 Dermatologic No mole change 11/20/2018 Dermatologic No rash 11/20/2018 Psychiatric No anxiety 11/20/2018 Psychiatric No depression 11/20/2018 Psychiatric No confusion 11/20/2018 Hematologic/Lymphatic anemia 11/20/2018 Genitourinary/Nephrology No urinary frequency 11/20/2018 Genitourinary/Nephrology No urinary incontinence 11/20/2018 Constitutional No recent illness 08/21/2018 Constitutional No chills 08/21/2018 Constitutional No diaphoresis 08/21/2018 Constitutional fatigue 08/21/2018 Constitutional No fever 08/21/2018 Eyes No blindness 08/21/2018 Eyes No vision change 08/21/2018 Ears/Nose/Throat/Neck No nasal allergies 08/21/2018 Ears/Nose/Throat/Neck No nasal discharge 08/21/2018 Cardiovascular arrhythmia 08/21/2018 Cardiovascular No chest pain/pressure 08/21/2018 Cardiovascular No dyspnea 08/21/2018 Cardiovascular fatigue 08/21/2018 Cardiovascular hypertension 08/21/2018 Respiratory No chest congestion 08/21/2018 Respiratory cigarette smoking 08/21/2018 Respiratory No cough 08/21/2018 Gastrointestinal No abdominal pain 08/21/2018 Gastrointestinal No constipation 08/21/2018 Gastrointestinal No diarrhea 08/21/2018 Gastrointestinal gastroesophageal reflux 08/21/2018 Gastrointestinal No nausea 08/21/2018 Gastrointestinal No vomiting 08/21/2018 Genitourinary/Nephrology No dysuria 08/21/2018 Genitourinary/Nephrology No urinary urgency 08/21/2018 Musculoskeletal stiffness 08/21/2018 Musculoskeletal No swelling 08/21/2018 Musculoskeletal No muscle weakness 08/21/2018 Musculoskeletal No myalgias 08/21/2018 Dermatologic erythema 08/21/2018 Dermatologic mole change 08/21/2018 Dermatologic No rash 08/21/2018 Psychiatric No anxiety 08/21/2018 Psychiatric No depression 08/21/2018 Psychiatric No confusion 08/21/2018 Hematologic/Lymphatic anemia 08/21/2018 Musculoskeletal joint complaint 08/21/2018 Constitutional No recent illness 07/17/2018 Constitutional No chills 07/17/2018 Constitutional No diaphoresis 07/17/2018 Constitutional fatigue 07/17/2018 Constitutional No fever 07/17/2018 Eyes No blindness 07/17/2018 Eyes No vision change 07/17/2018 Ears/Nose/Throat/Neck No nasal allergies 07/17/2018 Ears/Nose/Throat/Neck No nasal discharge 07/17/2018 Cardiovascular No chest pain/pressure 07/17/2018 Cardiovascular No dyspnea 07/17/2018 Cardiovascular fatigue 07/17/2018 Respiratory No chest congestion 07/17/2018 Respiratory cigarette smoking 07/17/2018 Respiratory No cough 07/17/2018 Gastrointestinal No abdominal pain 07/17/2018 Gastrointestinal No constipation 07/17/2018 Gastrointestinal No diarrhea 07/17/2018 Gastrointestinal gastroesophageal reflux 07/17/2018 Gastrointestinal No nausea 07/17/2018 Gastrointestinal No vomiting 07/17/2018 Genitourinary/Nephrology No dysuria 07/17/2018 Genitourinary/Nephrology No urinary urgency 07/17/2018 Musculoskeletal stiffness 07/17/2018 Musculoskeletal No swelling 07/17/2018 Musculoskeletal No muscle weakness 07/17/2018 Musculoskeletal No myalgias 07/17/2018 Dermatologic erythema 07/17/2018 Dermatologic No rash 07/17/2018 Psychiatric No anxiety 07/17/2018 Psychiatric No depression 07/17/2018 Psychiatric No confusion 07/17/2018 Cardiovascular hypertension 07/17/2018 Hematologic/Lymphatic anemia 07/17/2018 Cardiovascular arrhythmia 07/17/2018 Dermatologic mole change 07/17/2018 Constitutional No recent illness 06/05/2018 Constitutional No chills 06/05/2018 Constitutional No diaphoresis 06/05/2018 Constitutional fatigue 06/05/2018 Constitutional No fever 06/05/2018 Eyes No blindness 06/05/2018 Eyes No vision change 06/05/2018 Ears/Nose/Throat/Neck No nasal allergies 06/05/2018 Ears/Nose/Throat/Neck No nasal discharge 06/05/2018 Cardiovascular No chest pain/pressure 06/05/2018 Cardiovascular No dyspnea 06/05/2018 Cardiovascular fatigue 06/05/2018 Respiratory No chest congestion 06/05/2018 Respiratory cigarette smoking 06/05/2018 Respiratory No cough 06/05/2018 Gastrointestinal No abdominal pain 06/05/2018 Gastrointestinal No constipation 06/05/2018 Gastrointestinal No diarrhea 06/05/2018 Gastrointestinal gastroesophageal reflux 06/05/2018 Gastrointestinal No nausea 06/05/2018 Gastrointestinal No vomiting 06/05/2018 Genitourinary/Nephrology No dysuria 06/05/2018 Genitourinary/Nephrology No urinary urgency 06/05/2018 Musculoskeletal stiffness 06/05/2018 Musculoskeletal No swelling 06/05/2018 Musculoskeletal No muscle weakness 06/05/2018 Musculoskeletal No myalgias 06/05/2018 Dermatologic No rash 06/05/2018 Psychiatric No anxiety 06/05/2018 Psychiatric No depression 06/05/2018 Psychiatric No confusion 06/05/2018 Dermatologic erythema 06/05/2018 Constitutional No recent illness 05/05/2018 Constitutional No chills 05/05/2018 Constitutional No diaphoresis 05/05/2018 Constitutional No fever 05/05/2018 Eyes No eye erythema 05/05/2018 Ears/Nose/Throat/Neck No nasal discharge 05/05/2018 Cardiovascular No chest pain/pressure 05/05/2018 Cardiovascular No dyspnea 05/05/2018 Respiratory No cough 05/05/2018 Respiratory No dyspnea 05/05/2018 Neurologic No alteration of consciousness 05/05/2018 Neurologic No mental status change 05/05/2018 Constitutional No recent illness 04/03/2018 Constitutional No chills 04/03/2018 Constitutional No diaphoresis 04/03/2018 Constitutional fatigue 04/03/2018 Constitutional No fever 04/03/2018 Eyes No blindness 04/03/2018 Eyes No vision change 04/03/2018 Ears/Nose/Throat/Neck No nasal allergies 04/03/2018 Ears/Nose/Throat/Neck No nasal discharge 04/03/2018 Cardiovascular No chest pain/pressure 04/03/2018 Cardiovascular No dyspnea 04/03/2018 Respiratory No chest congestion 04/03/2018 Respiratory No cough 04/03/2018 Gastrointestinal No abdominal pain 04/03/2018 Gastrointestinal No constipation 04/03/2018 Gastrointestinal No diarrhea 04/03/2018 Gastrointestinal gastroesophageal reflux 04/03/2018 Gastrointestinal No nausea 04/03/2018 Gastrointestinal No vomiting 04/03/2018 Musculoskeletal stiffness 04/03/2018 Musculoskeletal No swelling 04/03/2018 Musculoskeletal arthralgia(s) 04/03/2018 Musculoskeletal back pain 04/03/2018 Musculoskeletal No muscle weakness 04/03/2018 Musculoskeletal No myalgias 04/03/2018 Dermatologic No rash 04/03/2018 Neurologic No alteration of consciousness 04/03/2018 Neurologic No mental status change 04/03/2018 Respiratory cigarette smoking 04/03/2018 Psychiatric No anxiety 04/03/2018 Psychiatric No depression 04/03/2018 Psychiatric No confusion 04/03/2018 Genitourinary/Nephrology No dysuria 04/03/2018 Genitourinary/Nephrology No urinary urgency 04/03/2018 Cardiovascular fatigue 04/03/2018 Dermatologic pruritus 04/03/2018 Constitutional recent illness 03/06/2018 Constitutional No chills 03/06/2018 Constitutional No diaphoresis 03/06/2018 Constitutional fatigue 03/06/2018 Constitutional No fever 03/06/2018 Eyes No blindness 03/06/2018 Eyes No vision change 03/06/2018 Ears/Nose/Throat/Neck No nasal allergies 03/06/2018 Ears/Nose/Throat/Neck No nasal discharge 03/06/2018 Cardiovascular No chest pain/pressure 03/06/2018 Cardiovascular dyspnea 03/06/2018 Respiratory No chest congestion 03/06/2018 Respiratory No cough 03/06/2018 Gastrointestinal No abdominal pain 03/06/2018 Gastrointestinal No constipation 03/06/2018 Gastrointestinal gastroesophageal reflux 03/06/2018 Gastrointestinal No nausea 03/06/2018 Musculoskeletal stiffness 03/06/2018 Musculoskeletal No swelling 03/06/2018 Musculoskeletal arthralgia(s) 03/06/2018 Musculoskeletal back pain 03/06/2018 Musculoskeletal No muscle weakness 03/06/2018 Musculoskeletal No myalgias 03/06/2018 Dermatologic No rash 03/06/2018 Neurologic No alteration of consciousness 03/06/2018 Neurologic No mental status change 03/06/2018 Psychiatric No anxiety 03/06/2018 Gastrointestinal No diarrhea 03/06/2018 Genitourinary/Nephrology No dysuria 03/06/2018 Dermatologic No sores 03/06/2018 Cardiovascular exercise intolerance 03/06/2018 Musculoskeletal osteoporosis 03/06/2018 Constitutional No recent illness 02/22/2018 Constitutional No chills 02/22/2018 Constitutional No fever 02/22/2018 Eyes No eye erythema 02/22/2018 Ears/Nose/Throat/Neck No nasal discharge 02/22/2018 Cardiovascular No chest pain/pressure 02/22/2018 Cardiovascular No dyspnea 02/22/2018 Respiratory No cough 02/22/2018 Respiratory No dyspnea 02/22/2018 Neurologic No alteration of consciousness 02/22/2018 Neurologic No mental status change 02/22/2018 Genitourinary/Nephrology flank pain 02/22/2018 Genitourinary/Nephrology dysuria 02/22/2018 Gastrointestinal No constipation 02/22/2018 Gastrointestinal No diarrhea 02/22/2018 Gastrointestinal No vomiting 02/22/2018 Gastrointestinal No nausea 02/22/2018 Gastrointestinal No abdominal pain 02/22/2018 Musculoskeletal back pain 02/22/2018 Constitutional recent illness 12/13/2017 Constitutional No chills 12/13/2017 Constitutional No diaphoresis 12/13/2017 Constitutional fatigue 12/13/2017 Constitutional No fever 12/13/2017 Eyes No blindness 12/13/2017 Eyes No vision change 12/13/2017 Ears/Nose/Throat/Neck No nasal allergies 12/13/2017 Ears/Nose/Throat/Neck No nasal discharge 12/13/2017 Cardiovascular No chest pain/pressure 12/13/2017 Cardiovascular No dyspnea 12/13/2017 Cardiovascular near-syncope/dizziness 12/13/2017 Respiratory No chest congestion 12/13/2017 Respiratory No cough 12/13/2017 Gastrointestinal abdominal pain 12/13/2017 Gastrointestinal No constipation 12/13/2017 Gastrointestinal diarrhea 12/13/2017 Gastrointestinal gastroesophageal reflux 12/13/2017 Gastrointestinal No nausea 12/13/2017 Gastrointestinal No vomiting 12/13/2017 Musculoskeletal No swelling 12/13/2017 Musculoskeletal arthralgia(s) 12/13/2017 Musculoskeletal back pain 12/13/2017 Musculoskeletal No muscle weakness 12/13/2017 Musculoskeletal No myalgias 12/13/2017 Dermatologic No rash 12/13/2017 Neurologic No alteration of consciousness 12/13/2017 Neurologic No mental status change 12/13/2017 Psychiatric No anxiety 12/13/2017 Constitutional recent illness 11/29/2017 Constitutional No chills 11/29/2017 Constitutional No diaphoresis 11/29/2017 Constitutional fatigue 11/29/2017 Constitutional No fever 11/29/2017 Eyes No blindness 11/29/2017 Eyes No vision change 11/29/2017 Ears/Nose/Throat/Neck No nasal allergies 11/29/2017 Ears/Nose/Throat/Neck No nasal discharge 11/29/2017 Cardiovascular No chest pain/pressure 11/29/2017 Cardiovascular No dyspnea 11/29/2017 Cardiovascular near-syncope/dizziness 11/29/2017 Respiratory No chest congestion 11/29/2017 Respiratory No cough 11/29/2017 Gastrointestinal abdominal pain 11/29/2017 Gastrointestinal No constipation 11/29/2017 Gastrointestinal diarrhea 11/29/2017 Gastrointestinal gastroesophageal reflux 11/29/2017 Gastrointestinal No nausea 11/29/2017 Gastrointestinal No vomiting 11/29/2017 Musculoskeletal stiffness 11/29/2017 Musculoskeletal No swelling 11/29/2017 Musculoskeletal arthralgia(s) 11/29/2017 Musculoskeletal back pain 11/29/2017 Musculoskeletal No muscle weakness 11/29/2017 Musculoskeletal No myalgias 11/29/2017 Dermatologic No rash 11/29/2017 Neurologic No alteration of consciousness 11/29/2017 Neurologic No mental status change 11/29/2017 Psychiatric No anxiety 11/29/2017 Constitutional recent illness 10/27/2017 Constitutional No chills 10/27/2017 Constitutional No diaphoresis 10/27/2017 Constitutional fatigue 10/27/2017 Constitutional No fever 10/27/2017 Eyes No blindness 10/27/2017 Eyes No vision change 10/27/2017 Ears/Nose/Throat/Neck No nasal allergies 10/27/2017 Ears/Nose/Throat/Neck No nasal discharge 10/27/2017 Cardiovascular No chest pain/pressure 10/27/2017 Cardiovascular No dyspnea 10/27/2017 Cardiovascular near-syncope/dizziness 10/27/2017 Respiratory No chest congestion 10/27/2017 Respiratory No cough 10/27/2017 Gastrointestinal abdominal pain 10/27/2017 Gastrointestinal No constipation 10/27/2017 Gastrointestinal diarrhea 10/27/2017 Gastrointestinal gastroesophageal reflux 10/27/2017 Gastrointestinal No nausea 10/27/2017 Gastrointestinal No vomiting 10/27/2017 Musculoskeletal stiffness 10/27/2017 Musculoskeletal No swelling 10/27/2017 Musculoskeletal arthralgia(s) 10/27/2017 Musculoskeletal back pain 10/27/2017 Musculoskeletal No muscle weakness 10/27/2017 Musculoskeletal No myalgias 10/27/2017 Dermatologic No rash 10/27/2017 Neurologic No alteration of consciousness 10/27/2017 Neurologic No mental status change 10/27/2017 Psychiatric No anxiety 10/27/2017 Constitutional No recent illness 07/26/2017 Constitutional No chills 07/26/2017 Constitutional No fever 07/26/2017 Eyes No eye erythema 07/26/2017 Eyes No vision change 07/26/2017 Cardiovascular No chest pain/pressure 07/26/2017 Cardiovascular No dyspnea 07/26/2017 Gastrointestinal No abdominal pain 07/26/2017 Gastrointestinal No constipation 07/26/2017 Gastrointestinal No diarrhea 07/26/2017 Gastrointestinal gastroesophageal reflux 07/26/2017 Gastrointestinal No nausea 07/26/2017 Gastrointestinal No vomiting 07/26/2017 Musculoskeletal stiffness 07/26/2017 Musculoskeletal No swelling 07/26/2017 Musculoskeletal arthralgia(s) 07/26/2017 Musculoskeletal back pain 07/26/2017 Musculoskeletal No muscle weakness 07/26/2017 Musculoskeletal No myalgias 07/26/2017 Dermatologic No rash 07/26/2017 Constitutional No diaphoresis 07/26/2017 Constitutional fatigue 07/26/2017 Ears/Nose/Throat/Neck No nasal allergies 07/26/2017 Ears/Nose/Throat/Neck No nasal discharge 07/26/2017 Cardiovascular near-syncope/dizziness 07/26/2017 Respiratory No cough 07/26/2017 Respiratory No chest congestion 07/26/2017 Neurologic No alteration of consciousness 07/26/2017 Neurologic No mental status change 07/26/2017 Constitutional No recent illness 05/26/2017 Constitutional No chills 05/26/2017 Constitutional No fatigue 05/26/2017 Constitutional No fever 05/26/2017 Constitutional No insomnia 05/26/2017 Constitutional No malaise 05/26/2017 Eyes No blindness 05/26/2017 Eyes No vision change 05/26/2017 Ears/Nose/Throat/Neck No dental pain 05/26/2017 Ears/Nose/Throat/Neck No dizziness 05/26/2017 Ears/Nose/Throat/Neck No dysphagia 05/26/2017 Ears/Nose/Throat/Neck No headache 05/26/2017 Ears/Nose/Throat/Neck No hearing loss 05/26/2017 Ears/Nose/Throat/Neck No nasal allergies 05/26/2017 Ears/Nose/Throat/Neck No sore throat 05/26/2017 Ears/Nose/Throat/Neck No postnasal drip 05/26/2017 Ears/Nose/Throat/Neck No sinus congestion 05/26/2017 Cardiovascular No chest pain/pressure 05/26/2017 Cardiovascular No dyspnea 05/26/2017 Cardiovascular No edema 05/26/2017 Cardiovascular No exercise intolerance 05/26/2017 Cardiovascular No fatigue 05/26/2017 Cardiovascular No near-syncope/dizziness 05/26/2017 Respiratory No chest tightness 05/26/2017 Respiratory No cough 05/26/2017 Respiratory No dyspnea 05/26/2017 Respiratory No pedal edema 05/26/2017 Gastrointestinal No abdominal pain 05/26/2017 Gastrointestinal No constipation 05/26/2017 Gastrointestinal No diarrhea 05/26/2017 Gastrointestinal No gastroesophageal reflux 05/26/2017 Gastrointestinal No nausea 05/26/2017 Gastrointestinal No vomiting 05/26/2017 Genitourinary/Nephrology No dysuria 05/26/2017 Genitourinary/Nephrology No nocturia 05/26/2017 Genitourinary/Nephrology No urinary incontinence 05/26/2017 Musculoskeletal stiffness 05/26/2017 Musculoskeletal No swelling 05/26/2017 Musculoskeletal arthralgia(s) 05/26/2017 Musculoskeletal back pain 05/26/2017 Musculoskeletal No muscle weakness 05/26/2017 Musculoskeletal No myalgias 05/26/2017 Dermatologic No rash 05/26/2017 Dermatologic No sores 05/26/2017 Dermatologic No scar 05/26/2017 Neurologic No dizziness 05/26/2017 Neurologic No headache 05/26/2017 Neurologic No neck pain 05/26/2017 Neurologic No syncope 05/26/2017 Psychiatric No anxiety 05/26/2017 Psychiatric No depression 05/26/2017 Constitutional No recent illness 04/11/2017 Constitutional No chills 04/11/2017 Constitutional fatigue 04/11/2017 Constitutional No fever 04/11/2017 Constitutional No insomnia 04/11/2017 Constitutional No malaise 04/11/2017 Eyes No blindness 04/11/2017 Eyes No vision change 04/11/2017 Ears/Nose/Throat/Neck No dental pain 04/11/2017 Ears/Nose/Throat/Neck No dizziness 04/11/2017 Ears/Nose/Throat/Neck No dysphagia 04/11/2017 Ears/Nose/Throat/Neck No headache 04/11/2017 Ears/Nose/Throat/Neck No hearing loss 04/11/2017 Ears/Nose/Throat/Neck No nasal allergies 04/11/2017 Ears/Nose/Throat/Neck No sore throat 04/11/2017 Ears/Nose/Throat/Neck No postnasal drip 04/11/2017 Ears/Nose/Throat/Neck No sinus congestion 04/11/2017 Cardiovascular No chest pain/pressure 04/11/2017 Cardiovascular dyspnea 04/11/2017 Cardiovascular No edema 04/11/2017 Cardiovascular exercise intolerance 04/11/2017 Cardiovascular No fatigue 04/11/2017 Cardiovascular No near-syncope/dizziness 04/11/2017 Respiratory No chest tightness 04/11/2017 Respiratory No cough 04/11/2017 Respiratory No dyspnea 04/11/2017 Respiratory No pedal edema 04/11/2017 Gastrointestinal No abdominal pain 04/11/2017 Gastrointestinal No constipation 04/11/2017 Gastrointestinal No diarrhea 04/11/2017 Gastrointestinal No gastroesophageal reflux 04/11/2017 Gastrointestinal No nausea 04/11/2017 Gastrointestinal No vomiting 04/11/2017 Genitourinary/Nephrology No dysuria 04/11/2017 Genitourinary/Nephrology No nocturia 04/11/2017 Genitourinary/Nephrology No urinary incontinence 04/11/2017 Musculoskeletal stiffness 04/11/2017 Musculoskeletal No swelling 04/11/2017 Musculoskeletal arthralgia(s) 04/11/2017 Musculoskeletal back pain 04/11/2017 Musculoskeletal No muscle weakness 04/11/2017 Musculoskeletal No myalgias 04/11/2017 Dermatologic No rash 04/11/2017 Dermatologic No sores 04/11/2017 Dermatologic No scar 04/11/2017 Neurologic No dizziness 04/11/2017 Neurologic No headache 04/11/2017 Neurologic No neck pain 04/11/2017 Neurologic No syncope 04/11/2017 Psychiatric No anxiety 04/11/2017 Psychiatric No depression 04/11/2017 Respiratory dyspnea on exertion 04/11/2017 Constitutional No recent illness 02/07/2017 Constitutional No chills 02/07/2017 Constitutional No fatigue 02/07/2017 Constitutional No fever 02/07/2017 Constitutional No insomnia 02/07/2017 Constitutional No malaise 02/07/2017 Ears/Nose/Throat/Neck No dizziness 02/07/2017 Ears/Nose/Throat/Neck No dysphagia 02/07/2017 Ears/Nose/Throat/Neck No headache 02/07/2017 Cardiovascular No dyspnea 02/07/2017 Cardiovascular No edema 02/07/2017 Cardiovascular No exercise intolerance 02/07/2017 Cardiovascular No fatigue 02/07/2017 Cardiovascular No near-syncope/dizziness 02/07/2017 Respiratory No chest tightness 02/07/2017 Respiratory No cough 02/07/2017 Respiratory No dyspnea 02/07/2017 Respiratory No pedal edema 02/07/2017 Gastrointestinal No abdominal pain 02/07/2017 Gastrointestinal No constipation 02/07/2017 Gastrointestinal No diarrhea 02/07/2017 Gastrointestinal No gastroesophageal reflux 02/07/2017 Gastrointestinal No nausea 02/07/2017 Gastrointestinal No vomiting 02/07/2017 Musculoskeletal stiffness 02/07/2017 Musculoskeletal arthralgia(s) 02/07/2017 Musculoskeletal back pain 02/07/2017 Musculoskeletal No muscle weakness 02/07/2017 Musculoskeletal No myalgias 02/07/2017 Neurologic No dizziness 02/07/2017 Neurologic No headache 02/07/2017 Neurologic No neck pain 02/07/2017 Neurologic No syncope 02/07/2017 Constitutional No recent illness 01/26/2017 Constitutional No chills 01/26/2017 Constitutional No fatigue 01/26/2017 Constitutional No fever 01/26/2017 Constitutional No insomnia 01/26/2017 Constitutional No malaise 01/26/2017 Eyes No blindness 01/26/2017 Eyes No vision change 01/26/2017 Ears/Nose/Throat/Neck No dental pain 01/26/2017 Ears/Nose/Throat/Neck No dizziness 01/26/2017 Ears/Nose/Throat/Neck No dysphagia 01/26/2017 Ears/Nose/Throat/Neck No headache 01/26/2017 Ears/Nose/Throat/Neck No hearing loss 01/26/2017 Ears/Nose/Throat/Neck No nasal allergies 01/26/2017 Ears/Nose/Throat/Neck No sore throat 01/26/2017 Ears/Nose/Throat/Neck No postnasal drip 01/26/2017 Ears/Nose/Throat/Neck No sinus congestion 01/26/2017 Cardiovascular No chest pain/pressure 01/26/2017 Cardiovascular No dyspnea 01/26/2017 Cardiovascular No edema 01/26/2017 Cardiovascular No exercise intolerance 01/26/2017 Cardiovascular No fatigue 01/26/2017 Cardiovascular No near-syncope/dizziness 01/26/2017 Respiratory No chest tightness 01/26/2017 Respiratory No cough 01/26/2017 Respiratory No dyspnea 01/26/2017 Respiratory No pedal edema 01/26/2017 Gastrointestinal No abdominal pain 01/26/2017 Gastrointestinal No constipation 01/26/2017 Gastrointestinal No diarrhea 01/26/2017 Gastrointestinal No gastroesophageal reflux 01/26/2017 Gastrointestinal No nausea 01/26/2017 Gastrointestinal No vomiting 01/26/2017 Genitourinary/Nephrology No dysuria 01/26/2017 Genitourinary/Nephrology No nocturia 01/26/2017 Genitourinary/Nephrology No urinary incontinence 01/26/2017 Musculoskeletal stiffness 01/26/2017 Musculoskeletal No swelling 01/26/2017 Musculoskeletal arthralgia(s) 01/26/2017 Musculoskeletal back pain 01/26/2017 Musculoskeletal No muscle weakness 01/26/2017 Musculoskeletal No myalgias 01/26/2017 Dermatologic No rash 01/26/2017 Dermatologic No sores 01/26/2017 Dermatologic No scar 01/26/2017 Neurologic No dizziness 01/26/2017 Neurologic No headache 01/26/2017 Neurologic No neck pain 01/26/2017 Neurologic No syncope 01/26/2017 Psychiatric No anxiety 01/26/2017 Psychiatric No depression 01/26/2017 Constitutional No recent illness 10/19/2016 Constitutional No chills 10/19/2016 Constitutional No fatigue 10/19/2016 Constitutional No fever 10/19/2016 Constitutional No insomnia 10/19/2016 Constitutional No malaise 10/19/2016 Eyes No blindness 10/19/2016 Eyes No vision change 10/19/2016 Ears/Nose/Throat/Neck No dental pain 10/19/2016 Ears/Nose/Throat/Neck No dizziness 10/19/2016 Ears/Nose/Throat/Neck No dysphagia 10/19/2016 Ears/Nose/Throat/Neck No headache 10/19/2016 Ears/Nose/Throat/Neck No hearing loss 10/19/2016 Ears/Nose/Throat/Neck No nasal allergies 10/19/2016 Ears/Nose/Throat/Neck No sore throat 10/19/2016 Ears/Nose/Throat/Neck No postnasal drip 10/19/2016 Ears/Nose/Throat/Neck No sinus congestion 10/19/2016 Cardiovascular No chest pain/pressure 10/19/2016 Cardiovascular No dyspnea 10/19/2016 Cardiovascular No edema 10/19/2016 Cardiovascular No exercise intolerance 10/19/2016 Cardiovascular No fatigue 10/19/2016 Cardiovascular No near-syncope/dizziness 10/19/2016 Respiratory No chest tightness 10/19/2016 Respiratory No cough 10/19/2016 Respiratory No dyspnea 10/19/2016 Respiratory No pedal edema 10/19/2016 Gastrointestinal No abdominal pain 10/19/2016 Gastrointestinal No constipation 10/19/2016 Gastrointestinal No diarrhea 10/19/2016 Gastrointestinal No gastroesophageal reflux 10/19/2016 Gastrointestinal No nausea 10/19/2016 Gastrointestinal No vomiting 10/19/2016 Genitourinary/Nephrology No dysuria 10/19/2016 Genitourinary/Nephrology No nocturia 10/19/2016 Genitourinary/Nephrology No urinary incontinence 10/19/2016 Musculoskeletal stiffness 10/19/2016 Musculoskeletal No swelling 10/19/2016 Musculoskeletal arthralgia(s) 10/19/2016 Musculoskeletal back pain 10/19/2016 Musculoskeletal No muscle weakness 10/19/2016 Musculoskeletal No myalgias 10/19/2016 Dermatologic No rash 10/19/2016 Dermatologic No sores 10/19/2016 Dermatologic No scar 10/19/2016 Neurologic No dizziness 10/19/2016 Neurologic No headache 10/19/2016 Neurologic No neck pain 10/19/2016 Neurologic No syncope 10/19/2016 Psychiatric No anxiety 10/19/2016 Psychiatric No depression 10/19/2016 Constitutional No recent illness 09/22/2016 Constitutional No chills 09/22/2016 Constitutional No fatigue 09/22/2016 Constitutional No fever 09/22/2016 Constitutional No insomnia 09/22/2016 Constitutional No malaise 09/22/2016 Eyes No blindness 09/22/2016 Eyes No vision change 09/22/2016 Ears/Nose/Throat/Neck No dental pain 09/22/2016 Ears/Nose/Throat/Neck No dizziness 09/22/2016 Ears/Nose/Throat/Neck No dysphagia 09/22/2016 Ears/Nose/Throat/Neck No headache 09/22/2016 Ears/Nose/Throat/Neck No hearing loss 09/22/2016 Ears/Nose/Throat/Neck No nasal allergies 09/22/2016 Ears/Nose/Throat/Neck No sore throat 09/22/2016 Ears/Nose/Throat/Neck No postnasal drip 09/22/2016 Ears/Nose/Throat/Neck No sinus congestion 09/22/2016 Cardiovascular No chest pain/pressure 09/22/2016 Cardiovascular No dyspnea 09/22/2016 Cardiovascular No edema 09/22/2016 Cardiovascular No exercise intolerance 09/22/2016 Cardiovascular fatigue 09/22/2016 Cardiovascular No near-syncope/dizziness 09/22/2016 Respiratory No chest tightness 09/22/2016 Respiratory No cough 09/22/2016 Respiratory No dyspnea 09/22/2016 Respiratory No pedal edema 09/22/2016 Gastrointestinal No abdominal pain 09/22/2016 Gastrointestinal No constipation 09/22/2016 Gastrointestinal No diarrhea 09/22/2016 Gastrointestinal No gastroesophageal reflux 09/22/2016 Gastrointestinal No nausea 09/22/2016 Gastrointestinal No vomiting 09/22/2016 Genitourinary/Nephrology No dysuria 09/22/2016 Genitourinary/Nephrology No nocturia 09/22/2016 Genitourinary/Nephrology No urinary incontinence 09/22/2016 Musculoskeletal stiffness 09/22/2016 Musculoskeletal No swelling 09/22/2016 Musculoskeletal arthralgia(s) 09/22/2016 Musculoskeletal back pain 09/22/2016 Musculoskeletal No muscle weakness 09/22/2016 Musculoskeletal No myalgias 09/22/2016 Dermatologic No rash 09/22/2016 Dermatologic No sores 09/22/2016 Dermatologic No scar 09/22/2016 Neurologic No dizziness 09/22/2016 Neurologic No headache 09/22/2016 Neurologic No neck pain 09/22/2016 Neurologic No syncope 09/22/2016 Psychiatric No anxiety 09/22/2016 Psychiatric No depression 09/22/2016 Cardiovascular palpitations 09/22/2016 Constitutional No recent illness 08/31/2016 Constitutional No chills 08/31/2016 Constitutional No fatigue 08/31/2016 Constitutional No fever 08/31/2016 Constitutional No insomnia 08/31/2016 Constitutional No malaise 08/31/2016 Eyes No blindness 08/31/2016 Eyes No vision change 08/31/2016 Ears/Nose/Throat/Neck No dental pain 08/31/2016 Ears/Nose/Throat/Neck No dizziness 08/31/2016 Ears/Nose/Throat/Neck No dysphagia 08/31/2016 Ears/Nose/Throat/Neck No headache 08/31/2016 Ears/Nose/Throat/Neck No hearing loss 08/31/2016 Ears/Nose/Throat/Neck No nasal allergies 08/31/2016 Ears/Nose/Throat/Neck No sore throat 08/31/2016 Ears/Nose/Throat/Neck No postnasal drip 08/31/2016 Ears/Nose/Throat/Neck No sinus congestion 08/31/2016 Cardiovascular No chest pain/pressure 08/31/2016 Cardiovascular No dyspnea 08/31/2016 Cardiovascular No edema 08/31/2016 Cardiovascular No exercise intolerance 08/31/2016 Cardiovascular No fatigue 08/31/2016 Cardiovascular No near-syncope/dizziness 08/31/2016 Respiratory No chest tightness 08/31/2016 Respiratory No cough 08/31/2016 Respiratory No dyspnea 08/31/2016 Respiratory No pedal edema 08/31/2016 Gastrointestinal No abdominal pain 08/31/2016 Gastrointestinal No constipation 08/31/2016 Gastrointestinal No diarrhea 08/31/2016 Gastrointestinal No gastroesophageal reflux 08/31/2016 Gastrointestinal No nausea 08/31/2016 Gastrointestinal No vomiting 08/31/2016 Genitourinary/Nephrology No dysuria 08/31/2016 Genitourinary/Nephrology No nocturia 08/31/2016 Genitourinary/Nephrology No urinary incontinence 08/31/2016 Musculoskeletal stiffness 08/31/2016 Musculoskeletal No swelling 08/31/2016 Musculoskeletal arthralgia(s) 08/31/2016 Musculoskeletal back pain 08/31/2016 Musculoskeletal No muscle weakness 08/31/2016 Musculoskeletal No myalgias 08/31/2016 Dermatologic No rash 08/31/2016 Dermatologic No sores 08/31/2016 Dermatologic No scar 08/31/2016 Neurologic No dizziness 08/31/2016 Neurologic No headache 08/31/2016 Neurologic No neck pain 08/31/2016 Neurologic No syncope 08/31/2016 Psychiatric No anxiety 08/31/2016 Psychiatric No depression 08/31/2016 Constitutional No recent illness 08/12/2016 Constitutional No anorexia 08/12/2016 Constitutional No night sweats 08/12/2016 Constitutional No chills 08/12/2016 Constitutional No diaphoresis 08/12/2016 Constitutional No fatigue 08/12/2016 Constitutional No insomnia 08/12/2016 Constitutional No fever 08/12/2016 Constitutional No malaise 08/12/2016 Constitutional No weight loss 08/12/2016 Constitutional No weight gain 08/12/2016 Musculoskeletal back pain 08/12/2016 Musculoskeletal No sciatica 08/12/2016 Constitutional No recent illness 07/28/2016 Constitutional No chills 07/28/2016 Constitutional No fatigue 07/28/2016 Constitutional No fever 07/28/2016 Constitutional No insomnia 07/28/2016 Constitutional No malaise 07/28/2016 Eyes No blindness 07/28/2016 Eyes No vision change 07/28/2016 Ears/Nose/Throat/Neck No dental pain 07/28/2016 Ears/Nose/Throat/Neck No dizziness 07/28/2016 Ears/Nose/Throat/Neck No dysphagia 07/28/2016 Ears/Nose/Throat/Neck No headache 07/28/2016 Ears/Nose/Throat/Neck No hearing loss 07/28/2016 Ears/Nose/Throat/Neck No nasal allergies 07/28/2016 Ears/Nose/Throat/Neck No sore throat 07/28/2016 Ears/Nose/Throat/Neck No postnasal drip 07/28/2016 Ears/Nose/Throat/Neck No sinus congestion 07/28/2016 Cardiovascular No chest pain/pressure 07/28/2016 Cardiovascular No dyspnea 07/28/2016 Cardiovascular No edema 07/28/2016 Cardiovascular No exercise intolerance 07/28/2016 Cardiovascular No fatigue 07/28/2016 Cardiovascular No near-syncope/dizziness 07/28/2016 Respiratory No chest tightness 07/28/2016 Respiratory No cough 07/28/2016 Respiratory No dyspnea 07/28/2016 Respiratory No pedal edema 07/28/2016 Gastrointestinal No abdominal pain 07/28/2016 Gastrointestinal No constipation 07/28/2016 Gastrointestinal No diarrhea 07/28/2016 Gastrointestinal No gastroesophageal reflux 07/28/2016 Gastrointestinal No nausea 07/28/2016 Gastrointestinal No vomiting 07/28/2016 Genitourinary/Nephrology No dysuria 07/28/2016 Genitourinary/Nephrology No nocturia 07/28/2016 Genitourinary/Nephrology No urinary incontinence 07/28/2016 Musculoskeletal stiffness 07/28/2016 Musculoskeletal No swelling 07/28/2016 Musculoskeletal arthralgia(s) 07/28/2016 Musculoskeletal back pain 07/28/2016 Musculoskeletal No muscle weakness 07/28/2016 Musculoskeletal No myalgias 07/28/2016 Dermatologic No rash 07/28/2016 Dermatologic No sores 07/28/2016 Dermatologic No scar 07/28/2016 Neurologic No dizziness 07/28/2016 Neurologic No headache 07/28/2016 Neurologic No neck pain 07/28/2016 Neurologic No syncope 07/28/2016 Psychiatric No anxiety 07/28/2016 Psychiatric No depression 07/28/2016 Constitutional No recent illness 01/28/2016 Constitutional No chills 01/28/2016 Constitutional No fatigue 01/28/2016 Constitutional No fever 01/28/2016 Constitutional No insomnia 01/28/2016 Constitutional No malaise 01/28/2016 Eyes No blindness 01/28/2016 Eyes No vision change 01/28/2016 Ears/Nose/Throat/Neck No dental pain 01/28/2016 Ears/Nose/Throat/Neck No dizziness 01/28/2016 Ears/Nose/Throat/Neck No dysphagia 01/28/2016 Ears/Nose/Throat/Neck No headache 01/28/2016 Ears/Nose/Throat/Neck No hearing loss 01/28/2016 Ears/Nose/Throat/Neck No nasal allergies 01/28/2016 Ears/Nose/Throat/Neck No sore throat 01/28/2016 Ears/Nose/Throat/Neck No postnasal drip 01/28/2016 Ears/Nose/Throat/Neck No sinus congestion 01/28/2016 Cardiovascular No chest pain/pressure 01/28/2016 Cardiovascular No dyspnea 01/28/2016 Cardiovascular No edema 01/28/2016 Cardiovascular No exercise intolerance 01/28/2016 Cardiovascular No fatigue 01/28/2016 Cardiovascular No near-syncope/dizziness 01/28/2016 Respiratory No chest tightness 01/28/2016 Respiratory No cough 01/28/2016 Respiratory No dyspnea 01/28/2016 Respiratory No pedal edema 01/28/2016 Gastrointestinal No abdominal pain 01/28/2016 Gastrointestinal No constipation 01/28/2016 Gastrointestinal No diarrhea 01/28/2016 Gastrointestinal No gastroesophageal reflux 01/28/2016 Gastrointestinal No nausea 01/28/2016 Gastrointestinal No vomiting 01/28/2016 Genitourinary/Nephrology No dysuria 01/28/2016 Genitourinary/Nephrology No nocturia 01/28/2016 Genitourinary/Nephrology No urinary incontinence 01/28/2016 Musculoskeletal stiffness 01/28/2016 Musculoskeletal No swelling 01/28/2016 Musculoskeletal arthralgia(s) 01/28/2016 Musculoskeletal back pain 01/28/2016 Musculoskeletal No muscle weakness 01/28/2016 Musculoskeletal No myalgias 01/28/2016 Dermatologic No scar 01/28/2016 Neurologic No dizziness 01/28/2016 Neurologic No headache 01/28/2016 Neurologic No neck pain 01/28/2016 Neurologic No syncope 01/28/2016 Psychiatric No anxiety 01/28/2016 Psychiatric No depression 01/28/2016 Dermatologic cellulitis 01/28/2016 Constitutional No recent illness 07/29/2015 Constitutional No chills 07/29/2015 Constitutional No fatigue 07/29/2015 Constitutional No fever 07/29/2015 Constitutional No insomnia 07/29/2015 Constitutional No malaise 07/29/2015 Eyes No blindness 07/29/2015 Eyes No vision change 07/29/2015 Ears/Nose/Throat/Neck No dental pain 07/29/2015 Ears/Nose/Throat/Neck No dizziness 07/29/2015 Ears/Nose/Throat/Neck No dysphagia 07/29/2015 Ears/Nose/Throat/Neck No headache 07/29/2015 Ears/Nose/Throat/Neck No hearing loss 07/29/2015 Ears/Nose/Throat/Neck No nasal allergies 07/29/2015 Ears/Nose/Throat/Neck No sore throat 07/29/2015 Ears/Nose/Throat/Neck No postnasal drip 07/29/2015 Ears/Nose/Throat/Neck No sinus congestion 07/29/2015 Cardiovascular No chest pain/pressure 07/29/2015 Cardiovascular No dyspnea 07/29/2015 Cardiovascular No edema 07/29/2015 Cardiovascular No exercise intolerance 07/29/2015 Cardiovascular No fatigue 07/29/2015 Cardiovascular No near-syncope/dizziness 07/29/2015 Respiratory No chest tightness 07/29/2015 Respiratory No cough 07/29/2015 Respiratory No dyspnea 07/29/2015 Respiratory No pedal edema 07/29/2015 Gastrointestinal No abdominal pain 07/29/2015 Gastrointestinal No constipation 07/29/2015 Gastrointestinal No diarrhea 07/29/2015 Gastrointestinal No gastroesophageal reflux 07/29/2015 Gastrointestinal No nausea 07/29/2015 Gastrointestinal No vomiting 07/29/2015 Genitourinary/Nephrology No dysuria 07/29/2015 Genitourinary/Nephrology No nocturia 07/29/2015 Genitourinary/Nephrology No urinary incontinence 07/29/2015 Musculoskeletal stiffness 07/29/2015 Musculoskeletal No swelling 07/29/2015 Musculoskeletal arthralgia(s) 07/29/2015 Musculoskeletal back pain 07/29/2015 Musculoskeletal No muscle weakness 07/29/2015 Musculoskeletal No myalgias 07/29/2015 Dermatologic No rash 07/29/2015 Dermatologic No sores 07/29/2015 Dermatologic No scar 07/29/2015 Neurologic No dizziness 07/29/2015 Neurologic No headache 07/29/2015 Neurologic No neck pain 07/29/2015 Neurologic No syncope 07/29/2015 Psychiatric No anxiety 07/29/2015 Psychiatric No depression 07/29/2015 Constitutional No recent illness 12/23/2014 Constitutional No chills 12/23/2014 Constitutional No fatigue 12/23/2014 Constitutional No fever 12/23/2014 Constitutional No insomnia 12/23/2014 Constitutional No malaise 12/23/2014 Eyes No blindness 12/23/2014 Eyes No vision change 12/23/2014 Ears/Nose/Throat/Neck No dental pain 12/23/2014 Ears/Nose/Throat/Neck No dizziness 12/23/2014 Ears/Nose/Throat/Neck No dysphagia 12/23/2014 Ears/Nose/Throat/Neck No headache 12/23/2014 Ears/Nose/Throat/Neck No hearing loss 12/23/2014 Ears/Nose/Throat/Neck No nasal allergies 12/23/2014 Ears/Nose/Throat/Neck No sore throat 12/23/2014 Ears/Nose/Throat/Neck No postnasal drip 12/23/2014 Ears/Nose/Throat/Neck No sinus congestion 12/23/2014 Cardiovascular No chest pain/pressure 12/23/2014 Cardiovascular No dyspnea 12/23/2014 Cardiovascular No edema 12/23/2014 Cardiovascular No exercise intolerance 12/23/2014 Cardiovascular No fatigue 12/23/2014 Cardiovascular No near-syncope/dizziness 12/23/2014 Respiratory No chest tightness 12/23/2014 Respiratory No cough 12/23/2014 Respiratory No dyspnea 12/23/2014 Respiratory No pedal edema 12/23/2014 Gastrointestinal No abdominal pain 12/23/2014 Gastrointestinal No constipation 12/23/2014 Gastrointestinal No diarrhea 12/23/2014 Gastrointestinal No gastroesophageal reflux 12/23/2014 Gastrointestinal No nausea 12/23/2014 Gastrointestinal No vomiting 12/23/2014 Genitourinary/Nephrology No dysuria 12/23/2014 Genitourinary/Nephrology No nocturia 12/23/2014 Genitourinary/Nephrology No urinary incontinence 12/23/2014 Musculoskeletal stiffness 12/23/2014 Musculoskeletal No swelling 12/23/2014 Musculoskeletal No muscle weakness 12/23/2014 Musculoskeletal No myalgias 12/23/2014 Dermatologic No rash [...] 1994 Constitutional general appearance Overall: well developed 12/21/2018 None Full Exam - General 1994 Constitutional general appearance Overall: in no acute distress 12/21/2018 None Full Exam - General 1994 Constitutional general appearance Overall: well nourished 12/21/2018 None Full Exam - General 1994 Constitutional general appearance Hygiene/Attention to Grooming: good hygiene 12/21/2018 None Full Exam - General 1994 Eyes conjunctiva/eyelids Overall: conjunctiva clear 12/21/2018 None Full Exam - General 1994 Eyes conjunctiva/eyelids Overall: cornea clear 12/21/2018 None Full Exam - General 1994 Eyes conjunctiva/eyelids Overall: eyelids normal 12/21/2018 None Full Exam - General 1994 Eyes pupils and irises Overall: pupils equal, round, reactive to light and accomodation 12/21/2018 None Full Exam - General 1994 Ears/Nose/Throat lips/teeth/gingiva Overall: benign lips 12/21/2018 None Full Exam - General 1994 Ears/Nose/Throat oral cavity/pharynx/larynx Overall: oral mucosa clear 12/21/2018 None Full Exam - General 1994 Ears/Nose/Throat oral cavity/pharynx/larynx Overall: oropharyngeal mucosa clear 12/21/2018 None Full Exam - General 1994 Respiratory auscultation Overall: breath sounds clear bilaterally 12/21/2018 None Full Exam - General 1994 Respiratory respiratory effort/rhythm Overall: no retractions 12/21/2018 None Full Exam - General 1994 Respiratory respiratory effort/rhythm Overall: normal rate 12/21/2018 None Full Exam - General 1994 Cardiovascular auscultation of heart Overall: regular rate 12/21/2018 None Full Exam - General 1994 Cardiovascular auscultation of heart Overall: normal heart sounds 12/21/2018 None Full Exam - General 1994 Abdomen abdominal exam Overall: no tenderness 12/21/2018 None Full Exam - General 1995 Abdomen abdominal exam Overall: normal bowel sounds 12/21/2018 None Full Exam - General 1994 Musculoskeletal lower extremity Palpation - thigh: tenderness 12/21/2018 at right lateral hip Full Exam - General 1995 Musculoskeletal head and neck Overall: head atraumatic 12/21/2018 None Full Exam - General 1994 Integument inspection of skin Dermatitis: thickened 12/21/2018 keratosis of upper back and shoulders Full Exam - General 1994 Neurologic cranial nerves Overall: crainial nerves 2 - 12 grossly intact 12/21/2018 None Full Exam - General 1994 Psychiatric orientation/consciousness Overall: oriented to person, place and time 12/21/2018 None Full Exam - General 1994 Psychiatric mood and affect Overall: normal mood and affect 12/21/2018 None Full Exam - General 1994 Constitutional general appearance Overall: well developed 11/20/2018 None Full Exam - General 1994 Constitutional general appearance Overall: in no acute distress 11/20/2018 None Full Exam - General 1994 Constitutional general appearance Overall: well nourished 11/20/2018 None Full Exam - General 1994 Constitutional general appearance Hygiene/Attention to Grooming: good hygiene 11/20/2018 None Full Exam - General 1994 Eyes conjunctiva/eyelids Overall: conjunctiva clear 11/20/2018 None Full Exam - General 1994 Eyes conjunctiva/eyelids Overall: cornea clear 11/20/2018 None Full Exam - General 1994 Eyes conjunctiva/eyelids Overall: eyelids normal 11/20/2018 None Full Exam - General 1994 Eyes pupils and irises Overall: pupils equal, round, reactive to light and accomodation 11/20/2018 None Full Exam - General 1994 Ears/Nose/Throat lips/teeth/gingiva Overall: benign lips 11/20/2018 None Full Exam - General 1994 Ears/Nose/Throat oral cavity/pharynx/larynx Overall: oral mucosa clear 11/20/2018 None Full Exam - General 1994 Ears/Nose/Throat oral cavity/pharynx/larynx Overall: oropharyngeal mucosa clear 11/20/2018 None Full Exam - General 1994 Respiratory auscultation Overall: breath sounds clear bilaterally 11/20/2018 None Full Exam - General 1994 Respiratory respiratory effort/rhythm Overall: no retractions 11/20/2018 None Full Exam - General 1994 Respiratory respiratory effort/rhythm Overall: normal rate 11/20/2018 None Full Exam - General 1994 Cardiovascular auscultation of heart Overall: regular rate 11/20/2018 None Full Exam - General 1994 Cardiovascular auscultation of heart Overall: normal heart sounds 11/20/2018 None Full Exam - General 1994 Abdomen abdominal exam Overall: no tenderness 11/20/2018 None Full Exam - General 1994 Abdomen abdominal exam Overall: normal bowel sounds 11/20/2018 None Full Exam - General 1994 Musculoskeletal head and neck Overall: head atraumatic 11/20/2018 None Full Exam - General 1994 Neurologic cranial nerves Overall: crainial nerves 2 - 12 grossly intact 11/20/2018 None Full Exam - General 1994 Psychiatric orientation/consciousness Overall: oriented to person, place and time 11/20/2018 None Full Exam - General 1994 Psychiatric mood and affect Overall: normal mood and affect 11/20/2018 None Full Exam - General 1994 Constitutional general appearance Overall: well developed 08/21/2018 None Full Exam - General 1994 Constitutional general appearance Overall: in no acute distress 08/21/2018 None Full Exam - General 1994 Constitutional general appearance Overall: well nourished 08/21/2018 None Full Exam - General 1994 Constitutional general appearance Hygiene/Attention to Grooming: good hygiene 08/21/2018 None Full Exam - General 1994 Eyes conjunctiva/eyelids Overall: conjunctiva clear 08/21/2018 None Full Exam - General 1994 Eyes conjunctiva/eyelids Overall: cornea clear 08/21/2018 None Full Exam - General 1994 Eyes conjunctiva/eyelids Overall: eyelids normal 08/21/2018 None Full Exam - General 1994 Eyes pupils and irises Overall: pupils equal, round, reactive to light and accomodation 08/21/2018 None Full Exam - General 1994 Ears/Nose/Throat lips/teeth/gingiva Overall: benign lips 08/21/2018 None Full Exam - General 1994 Ears/Nose/Throat oral cavity/pharynx/larynx Overall: oral mucosa clear 08/21/2018 None Full Exam - General 1994 Ears/Nose/Throat oral cavity/pharynx/larynx Overall: oropharyngeal mucosa clear 08/21/2018 None Full Exam - General 1994 Respiratory auscultation Overall: breath sounds clear bilaterally 08/21/2018 None Full Exam - General 1994 Respiratory respiratory effort/rhythm Overall: no retractions 08/21/2018 None Full Exam - General 1994 Respiratory respiratory effort/rhythm Overall: normal rate 08/21/2018 None Full Exam - General 1994 Cardiovascular auscultation of heart Overall: regular rate 08/21/2018 None Full Exam - General 1994 Cardiovascular auscultation of heart Overall: normal heart sounds 08/21/2018 None Full Exam - General 1994 Abdomen abdominal exam Overall: no tenderness 08/21/2018 None Full Exam - General 1995 Abdomen abdominal exam Overall: normal bowel sounds 08/21/2018 None Full Exam - General 1994 Musculoskeletal head and neck Overall: head atraumatic 08/21/2018 None Full Exam - General 1994 Integument inspection of skin Dermatitis: thickened 08/21/2018 keratosis of upper back and shoulders Full Exam - General 1994 Neurologic cranial nerves Overall: crainial nerves 2 - 12 grossly intact 08/21/2018 None Full Exam - General 1994 Psychiatric orientation/consciousness Overall: oriented to person, place and time 08/21/2018 None Full Exam - General 1994 Psychiatric mood and affect Overall: normal mood and affect 08/21/2018 None Full Exam - General 1994 Musculoskeletal lower extremity Palpation - thigh: tenderness 08/21/2018 at right lateral hip Full Exam - General 1994 Constitutional general appearance Overall: well developed 07/17/2018 None Full Exam - General 1994 Constitutional general appearance Overall: in no acute distress 07/17/2018 None Full Exam - General 1994 Constitutional general appearance Overall: well nourished 07/17/2018 None Full Exam - General 1994 Constitutional general appearance Hygiene/Attention to Grooming: good hygiene 07/17/2018 None Full Exam - General 1994 Eyes conjunctiva/eyelids Overall: conjunctiva clear 07/17/2018 None Full Exam - General 1994 Eyes conjunctiva/eyelids Overall: cornea clear 07/17/2018 None Full Exam - General 1994 Eyes conjunctiva/eyelids Overall: eyelids normal 07/17/2018 None Full Exam - General 1994 Eyes pupils and irises Overall: pupils equal, round, reactive to light and accomodation 07/17/2018 None Full Exam - General 1994 Ears/Nose/Throat lips/teeth/gingiva Overall: benign lips 07/17/2018 None Full Exam - General 1994 Ears/Nose/Throat oral cavity/pharynx/larynx Overall: oral mucosa clear 07/17/2018 None Full Exam - General 1994 Ears/Nose/Throat oral cavity/pharynx/larynx Overall: oropharyngeal mucosa clear 07/17/2018 None Full Exam - General 1994 Respiratory auscultation Overall: breath sounds clear bilaterally 07/17/2018 None Full Exam - General 1995 Respiratory respiratory effort/rhythm Overall: no retractions 07/17/2018 None Full Exam - General 1994 Respiratory respiratory effort/rhythm Overall: normal rate 07/17/2018 None Full Exam - General 1994 Cardiovascular auscultation of heart Overall: regular rate 07/17/2018 None Full Exam - General 1994 Cardiovascular auscultation of heart Overall: normal heart sounds 07/17/2018 None Full Exam - General 1994 Abdomen abdominal exam Overall: no tenderness 07/17/2018 None Full Exam - General 1994 Abdomen abdominal exam Overall: normal bowel sounds 07/17/2018 None Full Exam - General 1995 Musculoskeletal head and neck Overall: head atraumatic 07/17/2018 None Full Exam - General 1994 Neurologic cranial nerves Overall: crainial nerves 2 - 12 grossly intact 07/17/2018 None Full Exam - General 1994 Psychiatric orientation/consciousness Overall: oriented to person, place and time 07/17/2018 None Full Exam - General 1994 Psychiatric mood and affect Overall: normal mood and affect 07/17/2018 None Full Exam - General 1994 Integument inspection of skin Dermatitis: thickened 07/17/2018 keratosis of upper back and shoulders Full Exam - General 1994 Constitutional general appearance Overall: well developed 06/05/2018 None Full Exam - General 1994 Constitutional general appearance Overall: in no acute distress 06/05/2018 None Full Exam - General 1994 Constitutional general appearance Overall: well nourished 06/05/2018 None Full Exam - General 1994 Constitutional general appearance Hygiene/Attention to Grooming: good hygiene 06/05/2018 None Full Exam - General 1994 Eyes conjunctiva/eyelids Overall: conjunctiva clear 06/05/2018 None Full Exam - General 1994 Eyes conjunctiva/eyelids Overall: cornea clear 06/05/2018 None Full Exam - General 1994 Eyes conjunctiva/eyelids Overall: eyelids normal 06/05/2018 None Full Exam - General 1994 Eyes pupils and irises Overall: pupils equal, round, reactive to light and accomodation 06/05/2018 None Full Exam - General 1994 Ears/Nose/Throat lips/teeth/gingiva Overall: benign lips 06/05/2018 None Full Exam - General 1994 Ears/Nose/Throat oral cavity/pharynx/larynx Overall: oral mucosa clear 06/05/2018 None Full Exam - General 1994 Ears/Nose/Throat oral cavity/pharynx/larynx Overall: oropharyngeal mucosa clear 06/05/2018 None Full Exam - General 1994 Respiratory auscultation Overall: breath sounds clear bilaterally 06/05/2018 None Full Exam - General 1994 Respiratory respiratory effort/rhythm Overall: no retractions 06/05/2018 None Full Exam - General 1994 Respiratory respiratory effort/rhythm Overall: normal rate 06/05/2018 None Full Exam - General 1994 Cardiovascular auscultation of heart Overall: regular rate 06/05/2018 None Full Exam - General 1994 Cardiovascular auscultation of heart Overall: normal heart sounds 06/05/2018 None Full Exam - General 1994 Abdomen abdominal exam Overall: no tenderness 06/05/2018 None Full Exam - General 1994 Abdomen abdominal exam Overall: normal bowel sounds 06/05/2018 None Full Exam - General 1994 Musculoskeletal head and neck Overall: head atraumatic 06/05/2018 None Full Exam - General 1994 Neurologic cranial nerves Overall: crainial nerves 2 - 12 grossly intact 06/05/2018 None Full Exam - General 1994 Psychiatric orientation/consciousness Overall: oriented to person, place and time 06/05/2018 None Full Exam - General 1994 Psychiatric mood and affect Overall: normal mood and affect 06/05/2018 None Full Exam - General 1994 Constitutional general appearance Overall: well developed 05/05/2018 None Full Exam - General 1994 Constitutional general appearance Overall: in no acute distress 05/05/2018 None Full Exam - General 1994 Constitutional general appearance Overall: well nourished 05/05/2018 None Full Exam - General 1994 Eyes conjunctiva/eyelids Overall: conjunctiva clear 05/05/2018 None Full Exam - General 1994 Eyes conjunctiva/eyelids Overall: eyelids normal 05/05/2018 None Full Exam [...] None Full Exam - General 1994 Eyes conjunctiva/eyelids Overall: conjunctiva clear 04/03/2018 None Full Exam - General 1994 Eyes conjunctiva/eyelids Overall: cornea clear 04/03/2018 None Full Exam - General 1994 Eyes conjunctiva/eyelids Overall: eyelids normal 04/03/2018 None Full Exam [...] None Full Exam - General 1994 Eyes conjunctiva/eyelids Overall: conjunctiva clear 03/06/2018 None Full Exam - General 1994 Eyes conjunctiva/eyelids Overall: cornea clear 03/06/2018 None Full Exam - General 1994 Eyes conjunctiva/eyelids Overall: eyelids normal 03/06/2018 None Full Exam [...] intact 03/06/2018 None Full Exam - General 1995 Psychiatric orientation/consciousness Overall: oriented to person, place and time 03/06/2018 None Full Exam - General 1995 Psychiatric mood and affect Overall: normal mood and affect 03/06/2018 None Full Exam - Orthopedics Constitutional general appearance Overall: well nourished 02/22/2018 None Full Exam - Orthopedics Constitutional general appearance Overall: well developed 02/22/2018 None Full Exam - Orthopedics Constitutional general appearance Overall: in no acute distress 02/22/2018 None Full Exam - Orthopedics Eyes conjunctiva/eyelids Overall: conjunctiva clear 02/22/2018 None Full Exam - Orthopedics Eyes conjunctiva/eyelids Overall: eyelids normal 02/22/2018 None Full Exam [...] None Full Exam - General 1994 Eyes conjunctiva/eyelids Overall: conjunctiva clear 12/13/2017 None Full Exam - General 1994 Eyes conjunctiva/eyelids Overall: cornea clear 12/13/2017 None Full Exam - General 1994 Eyes conjunctiva/eyelids Overall: eyelids normal 12/13/2017 None Full Exam [...] None Full Exam - General 1994 Eyes conjunctiva/eyelids Overall: conjunctiva clear 11/29/2017 None Full Exam - General 1994 Eyes conjunctiva/eyelids Overall: cornea clear 11/29/2017 None Full Exam - General 1994 Eyes conjunctiva/eyelids Overall: eyelids normal 11/29/2017 None Full Exam [...] None Full Exam - General 1994 Eyes conjunctiva/eyelids Overall: conjunctiva clear 10/27/2017 None Full Exam - General 1994 Eyes conjunctiva/eyelids Overall: cornea clear 10/27/2017 None Full Exam - General 1994 Eyes conjunctiva/eyelids Overall: eyelids normal 10/27/2017 None Full Exam [...] None Full Exam - General 1994 Eyes conjunctiva/eyelids Overall: conjunctiva clear 07/26/2017 None Full Exam - General 1994 Eyes conjunctiva/eyelids Overall: cornea clear 07/26/2017 None Full Exam - General 1994 Eyes conjunctiva/eyelids Overall: eyelids normal 07/26/2017 None Full Exam [...] None Full Exam - General 1994 Eyes conjunctiva/eyelids Overall: conjunctiva clear 05/26/2017 None Full Exam - General 1994 Eyes conjunctiva/eyelids Overall: cornea clear 05/26/2017 None Full Exam - General 1994 Eyes conjunctiva/eyelids Overall: eyelids normal 05/26/2017 None Full Exam [...] None Full Exam - General 1994 Eyes conjunctiva/eyelids Overall: conjunctiva clear 04/11/2017 None Full Exam - General 1994 Eyes conjunctiva/eyelids Overall: cornea clear 04/11/2017 None Full Exam - General 1994 Eyes conjunctiva/eyelids Overall: eyelids normal 04/11/2017 None Full Exam [...] None Full Exam - General 1994 Eyes conjunctiva/eyelids Overall: conjunctiva clear 02/07/2017 None Full Exam - General 1994 Eyes conjunctiva/eyelids Overall: cornea clear 02/07/2017 None Full Exam - General 1994 Eyes conjunctiva/eyelids Overall: eyelids normal 02/07/2017 None Full Exam - General 1994 Eyes pupils and irises Overall: pupils equal, round, reactive to light and accomodation 02/07/2017 None Full Exam - General 1994 Ears/Nose/Throat otoscopic exam Overall: external auditory canals clear 02/07/2017 None Full Exam - General 1994 Ears/Nose/Throat otoscopic exam Overall: tympanic membranes clear 02/07/2017 None Full Exam - General 1995 Ears/Nose/Throat lips/teeth/gingiva Overall: benign lips 02/07/2017 None [...] None Full Exam - General 1994 Eyes conjunctiva/eyelids Overall: conjunctiva clear 01/26/2017 None Full Exam - General 1994 Eyes conjunctiva/eyelids Overall: cornea clear 01/26/2017 None Full Exam - General 1994 Eyes conjunctiva/eyelids Overall: eyelids normal 01/26/2017 None Full Exam [...] None Full Exam - General 1994 Eyes conjunctiva/eyelids Overall: conjunctiva clear 10/19/2016 None Full Exam - General 1994 Eyes conjunctiva/eyelids Overall: cornea clear 10/19/2016 None Full Exam - General 1994 Eyes conjunctiva/eyelids Overall: eyelids normal 10/19/2016 None Full Exam [...] None Full Exam - General 1994 Eyes conjunctiva/eyelids Overall: conjunctiva clear 09/22/2016 None Full Exam - General 1994 Eyes conjunctiva/eyelids Overall: cornea clear 09/22/2016 None Full Exam - General 1994 Eyes conjunctiva/eyelids Overall: eyelids normal 09/22/2016 None Full Exam [...] None Full Exam - General 1994 Eyes conjunctiva/eyelids Overall: conjunctiva clear 08/31/2016 None Full Exam - General 1994 Eyes conjunctiva/eyelids Overall: cornea clear 08/31/2016 None Full Exam - General 1994 Eyes conjunctiva/eyelids Overall: eyelids normal 08/31/2016 None Full Exam [...] Exam - Orthopedics Respiratory respiratory effort/rhythm Overall: normal, symmetric chest expansion 08/12/2016 None Full Exam - General 1994 Constitutional general appearance Development: well developed 07/28/2016 None Full Exam - General 1994 Constitutional general appearance Development: appears stated age 0307/28/2016 None Full Exam - General 1994 Constitutional general appearance Hygiene/Attention to Grooming: good hygiene 07/28/2016 None Full Exam - General 1994 Eyes conjunctiva/eyelids Overall: conjunctiva clear 07/28/2016 None Full Exam - General 1994 Eyes conjunctiva/eyelids Overall: cornea clear 07/28/2016 None Full Exam - General 1994 Eyes conjunctiva/eyelids Overall: eyelids normal 07/28/2016 None Full Exam [...] None Full Exam - General 1994 Eyes conjunctiva/eyelids Overall: conjunctiva clear 01/28/2016 None Full Exam - General 1994 Eyes conjunctiva/eyelids Overall: cornea clear 01/28/2016 None Full Exam - General 1994 Eyes conjunctiva/eyelids Overall: eyelids normal 01/28/2016 None Full Exam [...] None Full Exam - General 1994 Eyes conjunctiva/eyelids Overall: conjunctiva clear 07/29/2015 None Full Exam - General 1994 Eyes conjunctiva/eyelids Overall: cornea clear 07/29/2015 None Full Exam - General 1994 Eyes conjunctiva/eyelids Overall: eyelids normal 07/29/2015 None Full Exam [...] None Full Exam - General 1994 Eyes conjunctiva/eyelids Overall: conjunctiva clear 03/31/2015 None Full Exam - General 1994 Eyes conjunctiva/eyelids Overall: cornea clear 03/31/2015 None Full Exam - General 1994 Eyes conjunctiva/eyelids Overall: eyelids normal 03/31/2015 None Full Exam [...] inspection of skin Consistency: thick 03/31/2015 left pentecostal and left nasal bridge - actinic keratosis Full Exam - General 1994 Constitutional general appearance Development: well developed 12/23/2014 None Full Exam - General 1994 Constitutional general appearance Development: appears stated age 0812/23/2014 None Full Exam - General 1994 Constitutional general appearance Hygiene/Attention to Grooming: good hygiene 12/23/2014 None Full Exam - General 1994 Eyes conjunctiva/eyelids Overall: conjunctiva clear 12/23/2014 None Full Exam - General 1994 Eyes conjunctiva/eyelids Overall: cornea clear 12/23/2014 None Full Exam - General 1994 Eyes conjunctiva/eyelids Overall: eyelids normal 12/23/2014 None Full Exam [...] Procedures Procedure Codes Date PPPS, SUBSEQ VISIT CPT- 4: G0439 05/05/[address] 3-[address]: 609123882 CPT-4: G0436 04/11/2017 PNEUMOCOCCAL VACC [address]: 83139587 CPT-4: 49206 02/09/2017 FLU VACC PRSV FREE INC ANTIG CPT-4: 01126 02/09/2017 ADMIN INFLUENZA VIRUS VAC CPT-4: G0008 02/09/2017 ADMIN PNEUMOCOCCAL VACCINE SNOMED CT: 83248078 CPT-4: G0009 02/09/[address] MAN 3-[address]: 523774524 CPT-4: G0436 02/07/[address] MAN 3-[address]: 279179794 CPT-4: G0436 10/19/[address] MAN 3-[address]: 171993729 CPT-4: G0436 08/31/2016 TRIAMCINOLONE ACET INJ NOS CPT-4: J3301 08/12/[address] MAN 3-[address]: 886265265 CPT-4: G0436 07/28/2016 ADMIN INFLUENZA VIRUS VAC CPT-4: G0008 01/28/2016 FLU VACC 4 JULISA 3 YRS PLUS IM SNOMED CT: 08004159 CPT-4: 82077 01/28/[address] MAN 3-[address]: 922039006 CPT-4: G0436 07/29/2015 Vital Signs Date Vital 12/21/2018 Blood Pressure 1: 160/80 Code: 8480-6 BMI: 23.2 Code: 70249-7 Heart Rate 1: 80 bpm Height: 5'4" SpO2: 98% Weight: 135 lbs 11/20/2018 Blood Pressure 1: 144/82 Code: 8480-6 BMI: 23.0 Code: 33453-8 Heart Rate 1: 94 bpm Height: 5'4" SpO2: 94% Weight: 134 lbs 08/21/2018 Blood Pressure 1: 144/82 Code: 8480-6 BMI: 23.9 Code: 82527-5 Heart Rate 1: 99 bpm Height: 5'4" SpO2: 95% Weight: 139 lbs 07/17/2018 Blood Pressure 1: 126/54 Code: 8480-6 BMI: 24.4 Code: 66409-8 Heart Rate 1: 70 bpm Height: 5'4" SpO2: 98% Weight: 142 lbs 06/05/2018 Blood Pressure 1: 122/60 Code: 8480-6 BMI: 25.4 Code: 34879-2 Heart Rate 1: 74 bpm Height: 5'4" SpO2: 98% Weight: 148 lbs 05/05/2018 Blood Pressure 1: 130/64 Code: 8480-6 BMI: 25.1 Code: 28436-9 Heart Rate 1: 72 bpm Height: 5'4" SpO2: 97% Weight: 146 lbs 04/03/2018 Blood Pressure 1: 142/80 Code: 8480-6 BMI: 25.2 Code: 20501-8 Heart Rate 1: 99 bpm Height: 5'4" SpO2: 97% Weight: 147 lbs 03/06/2018 Blood Pressure 1: 140/80 Code: 8480-6 BMI: 26.1 Code: 32400-6 Heart Rate 1: 71 bpm Height: 5'4" SpO2: 98% Weight: 152 lbs 02/22/2018 Blood Pressure 1: 146/68 Code: 8480-6 BMI: 26.6 Code: 40009-8 Heart Rate 1: 88 bpm Height: 5'4" SpO2: 97% Weight: 155 lbs 12/13/2017 Blood Pressure 1: 132/68 Code: 8480-6 BMI: 26.6 Code: 79310-0 Heart Rate 1: 72 bpm Height: 5'4" SpO2: 94% Weight: 154 lbs 14 oz 11/29/2017 Blood Pressure 1: 130/64 Code: 8480-6 BMI: 26.1 Code: 11853-1 Heart Rate 1: 81 bpm Height: 5'4" SpO2: 94% Weight: 152 lbs 10/27/2017 Blood Pressure 1: 120/62 Code: 8480-6 BMI: 25.9 Code: 64681-4 Heart Rate 1: 70 bpm Height: 5'4" SpO2: 96% Weight: 151 lbs 07/26/2017 Blood Pressure 1: 146/70 Code: 8480-6 BMI: 26.3 Code: 45055-9 Heart Rate 1: 69 bpm Height: 5'4" SpO2: 98% Weight: 153 lbs 05/26/2017 Blood Pressure 1: 142/76 Code: 8480-6 BMI: 26.4 Code: 41928-8 Heart Rate 1: 59 bpm Height: 5'4" SpO2: 99% Weight: 154 lbs 04/11/2017 Blood Pressure 1: 134/64 Code: 8480-6 BMI: 26.6 Code: 83790-8 Heart Rate 1: 65 bpm Height: 5'4" SpO2: 98% Weight: 155 lbs 02/07/2017 Blood Pressure 1: 120/72 Code: 8480-6 Heart Rate 1: 72 bpm Height: 5'4" SpO2: 96% Weight: 01/26/2017 Blood Pressure 1: 146/68 Code: 8480-6 BMI: 26.4 Code: 96856-4 Heart Rate 1: 96 bpm Height: 5'4" SpO2: 97% Weight: 154 lbs 10/19/2016 Blood Pressure 1: 144/76 Code: 8480-6 BMI: 25.8 Code: 21711-4 Heart Rate 1: 68 bpm Height: 5'4" SpO2: 96% Weight: 150 lbs 8 oz 09/22/2016 Blood Pressure 1: 122/80 Code: 8480-6 BMI: 26.1 Code: 01203-8 Heart Rate 1: 111 bpm Height: 5'4" SpO2: 97% Weight: 152 lbs 08/31/2016 Blood Pressure 1: 152/82 Code: 8480-6 BMI: 27.1 Code: 34513-9 Heart Rate 1: 118 bpm Height: 5'4" SpO2: 96% Weight: 158 lbs 08/12/2016 Blood Pressure 1: 146/78 Code: 8480-6 BMI: 26.9 Code: 33967-1 Heart Rate 1: 68 bpm Height: 5'4" SpO2: 97% Weight: 157 lbs 07/28/2016 Blood Pressure 1: 128/64 Code: 8480-6 BMI: 27.1 Code: 84589-1 Heart Rate 1: 63 bpm Height: 5'4" SpO2: 97% Weight: 158 lbs 01/28/2016 Blood Pressure 1: 130/70 Code: 8480-6 BMI: 27.3 Code: 83098-8 Heart Rate 1: 60 bpm Height: 5'4" SpO2: 95% Weight: 159 lbs 07/29/2015 Blood Pressure 1: 136/80 Code: 8480-6 BMI: 28.1 Code: 37508-6 Heart Rate 1: 68 bpm Height: 5'4" SpO2: 96% Weight: 163 lbs 8 oz 03/31/2015 Blood Pressure 1: 138/88 Code: 8480-6 BMI: 27.5 Code: 69620-1 Heart Rate 1: 72 bpm Height: 5'4" Weight: 160 lbs 12/23/2014 Blood Pressure 1: 138/68 Code: 8480-6 BMI: 27.1 Code: 64550-3 Heart Rate 1: 63 bpm Height: 5'4" SpO2: 94% Weight: 158 lbs Functional Status No Functional Status data History of Present Illness Symptom Name Status Result Effective Date Notes Quality chronic 12/21/2018 None Quality intermittent 12/21/2018 None Quality primary hypertension 12/21/2018 None Onset and Resolution ongoing 12/21/2018 None Onset of Symptom during adulthood 12/21/2018 None Blood Pressure Values patient checking blood pressure at home - did not bring in readings 12/21/2018 None Alleviating Factors medication 12/21/2018 None Pertinent Findings decreased energy 12/21/2018 continues Pertinent Findings Denies dizziness 12/21/2018 None Pertinent Findings Denies dyspnea 12/21/2018 None Pertinent Findings Denies edema 12/21/2018 None Quality intermittent 12/21/2018 None Onset and Resolution gradual in onset 12/21/2018 None Frequency of Episodes daily 12/21/2018 2 per day Pertinent Findings Denies abdominal distension 12/21/2018 None Pertinent Findings heartburn 12/21/2018 takes protonix and carafate Pertinent Findings Denies bloating 12/21/2018 None Quality chronic 11/20/2018 None Quality intermittent 11/20/2018 None Quality primary hypertension 11/20/2018 None Onset and Resolution ongoing 11/20/2018 None Onset of Symptom during adulthood 11/20/2018 None Alleviating Factors medication 11/20/2018 None Pertinent Findings Denies dizziness 11/20/2018 None Pertinent Findings dyspnea 11/20/2018 "once in a while" Pertinent Findings Denies edema 11/20/2018 None Quality chronic 11/20/2018 None Quality intermittent 11/20/2018 None Quality irregular beats 11/20/2018 (atrial fibrillation) Onset and Resolution ongoing 11/20/2018 None Alleviating Factors medication 11/20/2018 None Location on the right 11/20/2018 None Quality intermittent 11/20/2018 None Onset and Resolution ongoing 11/20/2018 None Limitation on Activities moderately limits activities 11/20/2018 None Alleviating Factors non weight bearing 11/20/2018 and Tylenol Blood Pressure Values patient checking blood pressure at home - did not bring in readings 11/20/2018 None Pertinent Findings decreased energy 11/20/2018 None Quality chronic 08/21/2018 None Quality intermittent 08/21/2018 None Quality primary hypertension 08/21/2018 None Onset and Resolution ongoing 08/21/2018 None Onset of Symptom during adulthood 08/21/2018 None Blood Pressure Values patient checking blood pressure at home - did not bring in readings 08/21/2018 None Alleviating Factors medication 08/21/2018 None Pertinent Findings Denies dizziness 08/21/2018 None Pertinent Findings Denies dyspnea 08/21/2018 None Pertinent Findings Denies edema 08/21/2018 None Quality chronic 08/21/2018 None Quality intermittent 08/21/2018 None Quality irregular beats 08/21/2018 (atrial fibrillation) Onset and Resolution ongoing 08/21/2018 None Alleviating Factors medication 08/21/2018 None Location on the right 08/21/2018 None Quality intermittent 08/21/2018 None Onset and Resolution ongoing 08/21/2018 None Quality worsening 08/21/2018 None Alleviating Factors non weight bearing 08/21/2018 and Tylenol Limitation on Activities moderately limits activities 08/21/2018 None Quality chronic 07/17/2018 None Quality intermittent 07/17/2018 None Quality primary hypertension 07/17/2018 None Onset and Resolution ongoing 07/17/2018 None Onset of Symptom during adulthood 07/17/2018 None Blood Pressure Values patient checking blood pressure at home - did not bring in readings 07/17/2018 None Alleviating Factors medication 07/17/2018 None Pertinent Findings Denies dizziness 07/17/2018 None Pertinent Findings dyspnea 07/17/2018 after walking up steps- goes away when she sits down Pertinent Findings Denies edema 07/17/2018 None Quality chronic 07/17/2018 None Quality irregular beats 07/17/2018 (atrial fibrillation) Onset and Resolution ongoing 07/17/2018 None Alleviating Factors medication 07/17/2018 None Quality intermittent 07/17/2018 None Quality chronic 06/05/2018 None Quality intermittent 06/05/2018 None Quality primary hypertension 06/05/2018 None Onset and Resolution ongoing 06/05/2018 None Onset of Symptom during adulthood 06/05/2018 None Blood Pressure Values patient checking blood pressure at home - did not bring in readings 06/05/2018 None Alleviating Factors medication 06/05/2018 None Pertinent Findings Denies dizziness 06/05/2018 None Pertinent Findings dyspnea 06/05/2018 after walking up steps- goes away when she sits down Pertinent Findings Denies edema 06/05/2018 None Quality chronic 06/05/2018 None Quality irregular beats 06/05/2018 (atrial fibrillation) Alleviating Factors medication 06/05/2018 None Onset and Resolution ongoing 06/05/2018 None Alcohol Use does not drink any alcohol [...] 05/05/2018 None Sun Exposure protects skin when outdoors: y 05/05/2018 None Aspirin Use no 05/05/2018 None Blood Glucose (self reported) don't know 05/05/2018 None Blood Pressure (self reported) diagnosed with hypertension 05/05/2018 None Cholesterol (self reported) don't know 05/05/2018 None Hemaglobin A-1C (self reported) don't know 05/05/2018 None Hours of Sleep 5 05/05/2018 None Nutrition servings of fried food / [...] therapy 04/11/2017 None vaccination against influenza Location deltoid- Lt 02/09/2017 None abnormal test results Detailed Test [...] data Encounters Encounter Performer Location Codes Date ([id number]) [id number] EST. PATIENT, LEVEL IV Diagnosis: Atrophy of thyroid (acquired)[ICD10: E03.4] Diagnosis: Essential (primary) hypertension[ICD10: I10] Kandi Cabrera MD, [facility] CPT-4: 88459 12/21/2018 ([id number]) 81954 EST. PATIENT, LEVEL IV Diagnosis: Cough[ICD10: R05] Diagnosis: Other iron deficiency anemias[ICD10: D50.8] Diagnosis: Essential (primary) hypertension[ICD10: I10] Kandi Cabrera MD, [facility] CPT-4: 10776 11/20/[id number]) [id number] EST. PATIENT, LEVEL IV Diagnosis: Atrophy of thyroid (acquired)[ICD10: E03.4] Diagnosis: Other iron deficiency anemias[ICD10: D50.8] Diagnosis: Pain in right hip[ICD10: M25.551] Diagnosis: Essential (primary) hypertension[ICD10: I10] Kandi Cabrera MD, [facility] CPT-4: 03395 08/21/2018 ([id number]) 91135 EST. PATIENT, LEVEL IV Diagnosis: Essential (primary) hypertension[ICD10: I10] Diagnosis: Other iron deficiency anemias[ICD10: D50.8] Diagnosis: Tobacco abuse counseling[ICD10: Z71.6] Diagnosis: Chronic atrial fibrillation[ICD10: I48.2] Kandi Cabrera MD, [facility] CPT-4: 97179 07/17/2018 ([id number]) BEHAV CHNG SMOKING 3-10 MIN Diagnosis: [ICD9: ] Diagnosis: [ICD9: ] Diagnosis: [ICD9: ] Diagnosis: [ICD9: ] Kandi Cabrera MD, [facility] CPT-4: 77568 07/17/2018 ([id number]) 98567 EST. PATIENT, LEVEL IV Diagnosis: Other specified anemias[ICD10: D64.89] Diagnosis: Other insomnia[ICD10: G47.09] Diagnosis: Atrophy of thyroid (acquired)[ICD10: E03.4] Diagnosis: Allergic urticaria[ICD10: L50.0] Kandi Cabrera MD, [facility] CPT-4: 52390 06/05/2018 ([id number]) 10369 EST. PATIENT, LEVEL IV Diagnosis: Essential (primary) hypertension[ICD10: I10] Diagnosis: Nonrheumatic aortic (valve) stenosis[ICD10: I35.0] Diagnosis: Atrophy of thyroid (acquired)[ICD10: E03.4] Diagnosis: Chronic atrial fibrillation[ICD10: I48.2] Kandi Cabrera MD, [facility] CPT-4: 27566 04/03/2018 ([id number]) 21063 EST. PATIENT, LEVEL IV Diagnosis: Essential (primary) hypertension[ICD10: I10] Diagnosis: Chronic atrial fibrillation[ICD10: I48.2] Diagnosis: Nonrheumatic aortic (valve) stenosis[ICD10: I35.0] Diagnosis: Age-related osteoporosis without current pathological fracture[ICD10: M81.0] Kandi Cabrera MD, [facility] CPT-4: 26143 03/06/2018 96579 EST. PATIENT, LEVEL III Diagnosis: Low back pain[ICD10: M54.5] Diagnosis: Dysuria[ICD10: R30.0] Diagnosis: Gastro-esophageal reflux disease without esophagitis[ICD10: K21.9] Payton Cabrera MD, [facility] CPT-4: 31340 02/22/2018 ([id number]) 70707 EST. PATIENT, LEVEL III Diagnosis: Atrophy of thyroid (acquired)[ICD10: E03.4] Diagnosis: Other iron deficiency anemias[ICD10: D50.8] Diagnosis: Epigastric pain[ICD10: R10.13] Kandi Cabrera MD, [facility] CPT-4: 81316 12/13/2017 ([id number]) 08954 EST. PATIENT, LEVEL IV Diagnosis: Diverticulitis of large intestine without perforation or abscess without bleeding[ICD10: K57.32] Kandi Cabrera MD [facility] CPT-4: 31199 11/29/2017 ([id number]) 85435 EST. PATIENT, LEVEL IV Diagnosis: Atrophy of thyroid (acquired)[ICD10: E03.4] Diagnosis: Other iron deficiency anemias[ICD10: D50.8] Diagnosis: Epigastric pain[ICD10: R10.13] Diagnosis: Right lower quadrant pain[ICD10: R10.31] Diagnosis: Left lower quadrant pain[ICD10: R10.32] Kandi Cabrera MD, [facility] CPT-4: 42256 10/27/2017 [id number] EST. PATIENT, LEVEL IV Diagnosis: Atrophy of thyroid (acquired)[ICD10: E03.4] Diagnosis: Other iron deficiency anemias[ICD10: D50.8] Diagnosis: Essential (primary) hypertension[ICD10: I10] Diagnosis: Gastro-esophageal reflux disease without esophagitis[ICD10: K21.9] Payton Cabrera MD, [facility] CPT-4: 67058 07/26/2017 ([id number]) 49257 EST. PATIENT, LEVEL IV Diagnosis: Other iron deficiency anemias[ICD10: D50.8] Diagnosis: Atrophy of thyroid (acquired)[ICD10: E03.4] Diagnosis: Tobacco use[ICD10: Z72.0] Diagnosis: Essential (primary) hypertension[ICD10: I10] Diagnosis: Low back pain[ICD10: M54.5] Kandi Cabrera MD, [facility] CPT-4: 20980 05/26/2017 ([id number]) 39642 EST. PATIENT, LEVEL IV Diagnosis: Shortness of breath[ICD10: R06.02] Diagnosis: Tobacco use[ICD10: Z72.0] Diagnosis: Chronic atrial fibrillation[ICD10: I48.2] Kandi Cabrera MD, [facility] CPT-4: 29286 04/11/2017 ([id number]) 01803 EST. PATIENT, LEVEL III Diagnosis: Unsteadiness on feet[ICD10: R26.81] Diagnosis: Tobacco use[ICD10: Z72.0] Kandi Cabrera MD [facility] CPT-4: 16723 02/07/2017 ([id number]) 67362 EST. PATIENT, LEVEL IV Diagnosis: Cough[ICD10: R05] Diagnosis: Essential (primary) hypertension[ICD10: I10] Diagnosis: Chronic atrial fibrillation[ICD10: I48.2] Diagnosis: Unsteadiness on feet[ICD10: R26.81] Kandi Cabrera MD, [facility] CPT- 4: 39590 01/26/2017 ([id number]) 65554 EST. PATIENT, LEVEL IV Diagnosis: Essential (primary) hypertension[ICD10: I10] Diagnosis: Atrophy of thyroid (acquired)[ICD10: E03.4] Diagnosis: Tobacco use[ICD10: Z72.0] Diagnosis: Chronic atrial fibrillation[ICD10: I48.2] Diagnosis: Mixed hyperlipidemia[ICD10: E78.2] Kandi Cabrera MD, [facility] CPT- 4: 68490 10/19/2016 ([id number]) 74997 EST. PATIENT, LEVEL IV Diagnosis: Atrophy of thyroid (acquired)[ICD10: E03.4] Diagnosis: Mixed hyperlipidemia[ICD10: E78.2] Diagnosis: Essential (primary) hypertension[ICD10: I10] Kandi Cabrera MD [facility] CPT-4: 00283 09/22/2016 ([id number]) 04820 EST. PATIENT, LEVEL IV Diagnosis: Essential (primary) hypertension[ICD10: I10] Diagnosis: Atrophy of thyroid (acquired)[ICD10: E03.4] Diagnosis: Chronic atrial fibrillation[ICD10: I48.2] Kandi Cabrera MD, [facility] CPT-4: 41385 08/31/2016 ([id number]) 04274 EST. PATIENT, LEVEL III Diagnosis: Low back pain[ICD10: M54.5] Diagnosis: Sacroiliitis, not elsewhere classified[ICD10: M46.1] Janeen Cabrera MD, [facility] CPT-4: 96390 08/12/2016 ([id number]) 56119 EST. PATIENT, LEVEL IV Diagnosis: Mixed hyperlipidemia[ICD10: E78.2] Diagnosis: Essential (primary) hypertension[ICD10: I10] Diagnosis: Atrophy of thyroid (acquired)[ICD10: E03.4] Kandi Cabrera MD, [facility] CPT-4: 59215 07/28/2016 ([id number]) 74255 EST. PATIENT, LEVEL IV Diagnosis: Hypothyroidism, unspecified[ICD10: E03.9] Diagnosis: Essential (primary) hypertension[ICD10: I10] Diagnosis: Mixed hyperlipidemia[ICD10: E78.2] Diagnosis: Cellulitis of left lower limb[ICD10: L03.116] Diagnosis: Encounter for immunization[ICD10: Z23] [facility] CPT-4: 17698 01/28/2016 ([id number]) 45274 EST. PATIENT, LEVEL IV Diagnosis: Essential (primary) hypertension[ICD10: I10] Diagnosis: Hypothyroidism, unspecified[ICD10: E03.9] Diagnosis: Diarrhea, unspecified[ICD10: R19.7] Diagnosis: Tobacco use[ICD10: Z72.0] Diagnosis: Tobacco abuse counseling[ICD10: Z71.6] Diagnosis: Other obesity due to excess calories[ICD10: E66.09] [facility] CPT-4: 57032 07/29/2015 ([id number]) 74400 EST. PATIENT, LEVEL IV Diagnosis: Essential (primary) hypertension[ICD10: I10] Diagnosis: Hypothyroidism, unspecified[ICD10: E03.9] Diagnosis: Actinic keratosis[ICD10: L57.0] [facility] CPT-4: 66366 03/31/2015 ([id number]) OFFICE VISIT, NEW - LEVEL 4 Diagnosis: ESSENTIAL HYPERTENSION[ICD9: 401.9] Diagnosis: HYPOTHYROIDISM[ICD9: 244.9] Diagnosis: HYPERLIPIDEMIA[ICD9: 272.4] Diagnosis: Osteoporosis[ICD9: 733.00] Diagnosis: OSTEOARTH NOS-UNSPEC[ICD9: 715.90] Diagnosis: Sacroiliitis[ICD9: 720.2] [facility] CPT-4: 29402 12/23/2014 Plan of Care Planned Activity Notes Codes Status Date Visit Plan: Hypertension - uncontrolled - no modification of medication at this time - advised pt to check blood pressure at home and bring a copy to the office next week. The patient has been counseled to cut back on salt in diet for a no added salt diet, low fat diet, start an exercise program with low weight bearing exercises and higher aerobic activity for heart health. The patient is to check blood pressure readings as an outpatient and either fax, call, or email the readings to the office next week for practitioner to review. The pt is to call for acute concerns. Chronic cough with Tobacco abuse - discuss ed need to cut back and eventually quit smoking as stopping would help to decrease some of her fatigue, shortness of breath, and improve her cardiovascular status. Hypothyroidism - pt with chronic hypothyroidism, continue with current medication, will monitor pt to signs or symptoms of lack of adequate supplementation. Pt is to continue with current dose of medication unless directed otherwise. Check labs at regular intervals q 3 months or q 6 months based on previous levels of control. 12/21/2018 Appointment: Kandi Cabrera WPtel: [facility] (15 min) Moderate 12/21/2018 Patient Education: Patient Medication Summary Completed 12/21/2018 Patient Education: Hypertension Completed 12/21/2018 Visit Plan: Hypertension - well controlled - continue with current medications, continue with no added salt diet. Pt has been encouraged to exercise daily. The pt has been advised to call the office if there are any acute concerns about change in blood pressure readings at home. Iron deficiency anemia - check labs today. Chronic cough with Tobacco abuse - discussed need to cut back and eventually quit smoking as stopping would help to decrease some of her fatigue, shortness of breath, and improve her cardiovascular status. 11/20/2018 Appointment: Kandi Cabrera WPtel: [phone] [facility] (15 min) Moderate 11/20/2018 Patient Education: Patient Medication Summary Completed 11/20/2018 Patient Education: Hypertension Completed 11/20/2018 Visit Plan: Hypertension - well controlled - [...] months based on previous levels of control. Iron def iciency anemia - improved from 2.8% to 19% TIBC - pt with hgb up to 12.5 - pt feeling better - no change in current regimen. Right hip pain - pt to use topical anti-inflammatories - call if not improving, will then consider xray. Pt to call Dr. Hanna to let him know that she has improved hgb and is ready to discuss valve replacement. 08/21/2018 Appointment: Kandi Cabrera WPtel: [facility] (15 min) Moderate 08/21/2018 Patient Education: Patient Medication Summary Completed 08/21/2018 Patient Education: Hypertension Completed 08/21/2018 Visit Plan: Hypertension - well controlled - continue with current medications, continue with no added salt diet. Pt has been encouraged to exercise daily. The pt has been advised to call the office if there are any acute concerns about change in blood pressure readings at home. Iron deficiency anemia - suspect blood loss anemia - investigation is pending into possible small bowel blood loss - keep appt with Dr. Coyle for possible camera endoscopy. Tobacco abuse counseling - discussed need to cut back and eventually quit smoking as stopping would help to decrease some of her fatigue, shortness of breath, and improve her cardiovascular status. 07/17/2018 Appointment: Kandi Cabrera WPtel: [facility] (15 min) Moderate 07/17/2018 Patient Education: Patient Medication Summary Completed 07/17/2018 Patient Education: Hypertension Completed 07/17/2018 Appointment: Kandi Cabrera WPtel: [facility] (15 min) Moderate 07/11/2018 Visit Plan: Hypothyroidism - pt with chronic hypothyroidism, continue with current medication, will monitor pt to signs or symptoms of lack of adequate supplementation. Pt is to continue with current dose of medication unless directed otherwise. Check labs at regular intervals q 3 months or q 6 months based on previous levels of control. Anemia - continue with serial labs - - check h and h monthly and repeat iron panel in one month. Allergic reaction - hold the tricor for the next week - if the allergic reaction symptoms continue - then restart the tricor and hold the simvastatin x 1 week, if the allergic react ions do not stop, then restart the simvastatin and hold the carafate (sucralfate). Start on Hydroxyzine. Insomnia - start on hydroxyzine. 06/05/2018 Appointment: [facility] [phone] [facility] (15 min) Moderate 06/05/2018 Patient Education: Patient Medication Summary Completed 06/05/2018 Visit Plan: Medicare Exam - today we [...] Addiction Completed 05/05/2018 Appointment: [facility] [phone] [facility] (15 min) Moderate 04/11/2018 Visit Plan: Hypertension [...] not improving. 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 03/06/2018 Appointment: Kandi Cabrera WPtel: [facility] (15 min) Moderate 03/06/2018 Patient Education: [...] caffeine, spicy foods, peppermint, and cinnamon - al l of which can exacerbate esophageal reflux. The patient is to take medications as prescribed and call the office if the symptoms are not improving. 02/22/2018 Appointment: Payton Leon WPtel: [phone] [facility] (15 min) Moderate 02/22/2018 Patient Education: Patient Medication Summary Completed 02/22/2018 Patient Education: Back Pain Completed 02/22/2018 Visit Plan: Diarrhea - improved - pt advised to avoid seeds, nuts, popcorn, or any other food which has been proven to upset the pt's stomach. 12/13/2017 Appointment: Kandi Cabrera WPtel: [phone] [facility] [place] (15 min) Moderate 12/13/2017 Patient Education: Patient Medication Summary Completed 12/13/2017 Visit Plan: Diverticulitis - rx for antibiotic sent to pt's pharmacy - pt advised to avoid seeds, nuts, popcorn, or any other food which has been proven to upset the pt's stomach. 11/29/2017 Appointment: Kandi Cabrera WPtel: [phone] [facility] [place] (15 min) Moderate 11/29/2017 Patient Education: Patient Medication Summary Completed 11/29/2017 Appointment: Kandi Cabrera WPtel: [facility]7 [facility] [place] (15 min) Moderate 11/24/2017 Visit Plan: [...] 10 days 10/27/2017 Appointment: Kandi Cabrera WPtel: [phone] [facility] [place] (15 min) Moderate 10/27/2017 Patient Education: Patient Medication Summary Completed 10/27/2017 Care Plan: Iron And Tibc Pending 10/27/2017 Referral: Maggi Reaves Referral Initiated 08/18/2017 Patient Education: Patient Medication Summary Completed 07/28/2017 Visit Plan: Hypothyroidism - pt with chronic hypothyroidism, continue [...] not improving. 07/26/2017 Appointment: [phone] (30 min) [facility] 07/26/2017 Patient Education: Patient Medication Summary Completed 07/26/2017 Care Plan: Iron Pending 07/26/2017 Care Plan: Referral Order SNOMED-CT : [id number] Pending 07/26/2017 Visit Plan: Hypertension - well [...] exercises recommended. 05/26/2017 Appointment: Kandi Cabrera WPtel: [facility] (15 min) Moderate 05/26/2017 Patient Education: Patient Medication Summary Completed 05/26/2017 Patient Education: Patient Medication Summary Completed 05/19/2017 Care Plan: Iron Pending 05/19/2017 Visit Plan: Dyspnea on Exertion - uncontrolled - I have recommended pt to have Pulmonary function studies as well as a referral back to her Desktop Publishing Operator - Dr. Hanna - I suspect [...] cigarettes". 04/11/2017 Appointment: [phone] (15 min) Moderate 04/11/2017 Patient Education: Patient Medication Summary Completed 04/11/2017 Patient Education: Smoking and Tobacco Addiction Completed 04/11/2017 Care Plan: Referral Order SNOMED-CT : [id number] Pending 04/11/2017 Appointment: K[facility] Cab[facility]el[phone] (15 min) Moderate 02/14/2017 Appointment: Injection 02/09/2017 [phone] Patient informed. Completed 02/09/2017 Patient Education: Patient Medication Summary Completed 02/09/2017 Patient Education: Smoking and Tobacco Addiction Completed 02/09/2017 Visit Plan: Tobacco abuse - chronic condition for this patient. Patient has been counseled about need to stop smoking due to the negative health affects. Pt has vocalized understanding and states that they will con welder pipe making smoking cessation, but the pt is not yet ready to use medication to assist cessation. Rx for wellbutrin 75mg 1/2 pill bid. Gait instability - referral to [facility] for gait instability 02/07/2017 Appointment: Kandi Cabrera WPtel: [address] [place], [place] [id number] (15 min) Moderate 02/07/2017 Patient Education: Patient Medication Summary Completed 02/07/2017 Patient Education: Smoking and Tobacco Addiction Completed 02/07/2017 Care Plan: Referral Order SNOMED-CT : [id number] Pending 02/07/2017 Visit Plan: Cough - pt [...] becoming uncontrolled. 01/26/2017 Appointment: Kandi Cabrera WPtel: [facility]5 [facility] (15 min) Moderate 01/26/2017 Patient Education: Patient [...] per week. 10/19/2016 Appointment: K[facility] Cabrera [facility]Ptel[facility] [phone] [facility] (15 min) Moderate 10/19/2016 Patient Education: Patient Medication Summary Completed 10/19/2016 Patient Education: Smoking and Tobacco Addiction Completed 10/19/2016 Patient Education: Hypertension Completed 10/19/2016 Visit Plan: Atrial Fibrillation - pt on chronic anticoagulation and is not optimally rate controlled. Pt is to see her network account manager tomorrow, will discuss with him her plans [...] of control. 09/22/2016 Appointment: [facility] Cabrera [phone] [facility] (15 min) Moderate 09/22/2016 Patient Education: Patient [...] wither q 3 months or q 6 m [facility] based on previous levels of control. 08/31/2016 Appointment: Kandi Cabrera WPtel: [phone] [facility] (15 min) Moderate 08/31/2016 Patient Education: Patient Medication Summary Completed 08/31/2016 Patient Education: Smoking and Tobacco Addiction Completed 08/31/2016 Patient Education: Hypertension Completed 08/31/2016 Visit Plan: Sacroiliitis -kenalog injection today in the office- tylenol as directed-heat as directed-xray lumbar spine. Pt is to call if the symptoms do not improve or if they worsen. 08/12/2016 Appointment: Janeen Marsh WPtel: [phone] [phone] (30 min) Complex 08/12/2016 Patient Education: Patient Medication Summary Completed 08/12/2016 Patient Education: Smoking and Tobacco Addiction Completed 08/12/2016 Appointment: Payton Leon WPtel: [phone] [facility] [facility] - Annual Wellness Visit 07/30/2016 Visit Plan: [...] months based on previous levels of control. H yperlipidemia - pt has been counseled about appropriate [...] medications. 07/28/2016 Appointment: Kandi Cabrera [facility]Ptel: [phone] [facility] [place] (15 min) Moderate 07/28/2016 Patient [...] months based on previous levels of control. H yperlipidemia - pt has been counseled about appropriate [...] months based on previous levels of control. H yperlipidemia - pt has been counseled about appropriate [...] shot today 01/28/2016 Appointment: Kandi Cabrera [facility]Ptel: [phone] [facility] [place] (15 min) Moderate 01/28/2016 Patient [...] months based on previous levels of control. T obacco user - recommended cessation Overweight - need to increase activity 07/29/2015 Appointment: Kandi Cabrera WPtel: [phone] [facility] [place] (15 min) Moderate 07/29/2015 Patient Education: Patient Medication Summary Completed 07/29/2015 Patient Education: Smoking and Tobacco Addiction Completed 07/29/2015 Patient Education: Hypertension Completed 07/29/2015 Patient Education: Obesity Completed 07/29/2015 Care Plan: BMI Above normal followup SELF-MGMT EDUC & TRAIN 1 PT Ordered 07/29/2015 Visit Plan: Hypertension - well controlled - [...] months based on previous levels of control. A ctinic keratosis - left pentecostal and left nasal bridge - pt to use efudex on the lesions on the nose and face. 03/31/2015 Appointment: aKndi Cabrera WPtel: [address] [place] [address] (15 min) Moderate 03/31/2015 Patient Education: Patient [...] months based on previous levels of control. A rthritis- occasionally uncontrolled symptoms- recommend pt to take [...] D levels. 12/23/2014 Appointment: Kandi Cabrera WPtel: [address] [place] [address] [place] (S) New Patient 12/23/2014 Patient Education: Patient Medication Summary Completed 12/23/2014 Patient Education: Hypertension Completed 12/23/2014 Care Plan: Referral Order SNOMED-CT : [id number] Ordered 12/23/2014 Referral: External, Ordering Provider Referral Completed Referral: External, Ordering Provider Referral Appointment Requested Referral: Maggi Reaves Referral Initiated Referral: [facility] WPtel: [address] [place] [address] Referral Appointment Requested Referral: External, Ordering Provider [...] their heart rate is becoming uncontrolled. . Medicare Exam - today we discussed [...] well as a referral back to her Desktop Publishing Operator - Dr. Hanna - I suspect [...] rate controlled. Pt is to see her network account manager tomorrow, will discuss with him her plans [...] been proven to upset the pt's stomach. hold the tricor for the next week - if the allergic reaction symptoms continue - then restart the tricor and hold the simvastatin x 1 week, if the allergic reactions do not stop, then restart the simvastatin and hold the carafate (sucralfate) . Hypothyroidism - pt with chronic hypothyroidism, continue with current medication, will monitor pt to signs or symptoms of lack of adequate supplementation. Pt is to continue with current dose of medication unless directed otherwise. Check labs at regular intervals q 3 months or q 6 months based on previous levels of control. Anemia - continue with serial labs - - check h and h monthly and repeat iron panel in one month. Allergic reaction - hold the tricor for the next week - if the allergic reaction symptoms continue - then restart the tricor and hold the simvastatin x 1 week, if the allergic reactions do not stop, then restart the simvastatin and hold the carafate (sucralfate). Start on Hydroxyzine. Insomnia - start on hydroxyzine. . Hypertension - uncontrolled - no modification of medication at this time - advised pt to check blood pressure at home and bring a copy to the office next week. The patient has been counseled to cut back on salt in diet for a no added salt diet, low fat diet, start an exercise program with low weight bearing exercises and higher aerobic activity for heart health. The patient is to check blood pressure readings as an outpatient and either fax, call, or email the readings to the office next week for practitioner to review. The pt is to call for acute concerns. Chronic cough with Tobacco abuse - discussed need to cut back and eventually quit smoking as stopping would help to decrease some of her fatigue, shortness of breath, and improve her cardiovascular status. Hypothyroidism - pt with chronic hypothyroidism, continue [...] levels of control. Actinic keratosis - left pentecostal and left nasal bridge - pt to use efudex on the lesions on the nose and face. take 1/2 of an venu or zyrtec [...] or venu daily, call if not improving. PROBIOTIC - kathy, Life360, lactobacilus/acidophilis brand probiotic - these can be taken [...] DEXA scan, check vitamin D levels. . Hypertension - well controlled - continue [...] months based on previous levels of control. Iron deficiency anemia - improved from 2.8% to 19% TIBC - pt with hgb up to 12.5 - pt feeling better - no change in current regimen. Right hip pain - pt to use topical anti-inflammatories - call if not improving, will then consider xray. Pt to call Dr. Hanna to let him know that she has improved hgb and is ready to discuss valve replacement. . Hypertension - well controlled - continue [...] a conversation about surgical intervention with her Desktop Publishing Operator. . Hypertension - well controlled - continue with current medications, continue with no added salt diet. Pt has been encouraged to exercise daily. The pt has been advised to call the office if there are any acute concerns about change in blood pressure readings at home. Iron deficiency anemia - check labs today. Chronic cough with Tobacco abuse - discussed need to cut back and eventually quit smoking as stopping would help to decrease some of her fatigue, shortness of breath, and improve her cardiovascular status. . Hypertension - well controlled - continue [...] pill bid. Gait instability - referral to [facility] for gait instability zantac 150mg take twice [...] three times daily x 10 days . Hypertension - well controlled - continue [...] assure normal liver response to medications. . Hypertension - well controlled - continue with current medications, continue with no added salt diet. Pt has been encouraged to exercise daily. The pt has been advised to call the office if there are any acute concerns about change in blood pressure readings at home. Iron deficiency anemia - suspect blood loss anemia - investigation is pending into possible small bowel blood loss - keep appt with Dr. Coyle for possible camera endoscopy. Tobacco abuse counseling - discussed need to cut back and eventually quit smoking as stopping would help to decrease some of her fatigue, shortness of breath, and improve her cardiovascular status. . Atrial Fibrillation - pt on chronic [...] based on previous levels of control. . Hypothyroidism - pt with chronic hypothyroidism, [...]
--- OUTSIDE RECORDS SUMMARY | 2018-12-29 13:18 | XMS REPORT | CCD ---
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 Name Role Phone PP Unavailable CCM Unavailable Summary Purpose Interface Exchange Insurance Providers Payer name Policy type / Coverage type Covered libertarian ID Effective Begin Date Effective End Date [facility] Commercial Insurance [id number] Unknown WPS Medicare Part B Commercial Insurance [id number] 2017 Unknown Family history Father Diagnosis Age [...] Unknown Retired 12/23/[address]: 60253854 Current every day smoker 12/23/2014 Number of years using tobacco Unknown > 50 trying to quit 12/23/2014 Number of cigarettes/day Unknown 10 (Half a pack) 12/23/[address]: 843974543 Never drinks alcohol 12/23/2014 Allergies, Adverse Reactions, Alerts Substance Reaction Codes Entered Date Inactivated Date Status ciprofloxacin RxNorm: 67418 05/05/2018 No Inactive Date Active SULFA(SULFONAMIDE ANTIBIOTICS) [...] Start Date Stop Date Status Fill Instructions sucralfate 1 gram tablet RxNorm: 969173 1 Tablet(s) PO TID 09/11/2018 09/05/2019 Active sucralfate 1 gram tablet RxNorm: 173168 1 Tablet(s) PO TID 09/11/2018 09/10/2018 Inactive diltiazem ER 120 mg capsule,24 hr,extended release RxNorm: 658703 1 Capsule(s) PO daily 08/29/2018 08/23/2019 Active perphenazine-amitriptyline 2 mg-10 mg tablet RxNorm: 777117 2 Tablet(s) PO daily 08/15/2018 11/07/2019 Active PA approved: [id number] 05-17-18-08-15-2019 perphenazine-amitriptyline 2 mg-10 mg tablet RxNorm: 633935 2 Tablet(s) PO daily 08/15/2018 08/14/2018 Inactive PA approved: need 7 days while waiting on mail order perphenazine-amitriptyline 2 mg-10 mg tablet RxNorm: 505756 2 Tablet(s) PO daily 08/04/2018 08/03/2018 Inactive waiting on mail order perphenazine-amitriptyline 2 mg-10 mg tablet RxNorm: 841765 2 Tablet(s) PO daily 08/04/2018 08/03/2018 Inactive perphenazine-amitriptyline 2 mg-10 mg tablet RxNorm: 620541 2 Tablet(s) PO daily 08/04/2018 08/14/2018 Inactive Tricor 145 mg tablet RxNorm: 485589 1 Tablet(s) PO daily 07/17/2018 10/09/2019 Active pantoprazole 40 mg tablet,delayed release RxNorm: 927305 1 Tablet(s) PO daily 07/17/2018 10/09/2019 Active hydroxyzine HCl 25 mg tablet RxNorm: 939879 2 Tablet(s) PO QHS may increase to two pills at hs if allergic reactions are occuring 07/17/2018 11/13/2018 Inactive Synthroid 100 mcg tablet RxNorm: 806925 1 Tablet(s) PO daily 06/05/2018 08/28/2019 Active hydroxyzine HCl 25 mg tablet RxNorm: 456174 1 Tablet(s) PO QHS may increase to two pills at hs if allergic reactions are occuring 06/05/2018 07/16/2018 Inactive Lasix 20 mg tablet RxNorm: 209007 1 Tablet(s) PO daily as needed not more than one time a day 05/19/2018 09/15/2018 Inactive prednisone 20 mg tablet RxNorm: 515094 2 Tablet(s) PO daily 02/22/2018 02/26/2018 Inactive Cipro 500 mg tablet RxNorm: 011318 1 Tablet(s) PO BID 02/22/2018 02/28/2018 Inactive potassium chloride ER 10 mEq tablet,extended release RxNorm: 493758 1 Tablet(s) PO UD take on days that you take a lasix pill 02/13/2018 02/07/2019 Active Synthroid 100 mcg tablet RxNorm: 953961 1 Tablet(s) PO daily 02/13/2018 06/04/2018 Inactive simvastatin 20 mg tablet RxNorm: 039736 1 Tablet(s) PO QHS 01/13/2018 01/07/2019 Active metronidazole 500 mg tablet RxNorm: 564548 1 Tablet(s) PO TID 11/29/2017 12/08/2017 Inactive alendronate 70 mg tablet RxNorm: 754654 1 Tablet(s) PO weekly 11/29/2017 03/05/2018 Inactive omeprazole 40 mg capsule,delayed release RxNorm: 999978 1 Capsule(s) PO daily 11/11/2017 07/16/2018 Inactive Flagyl 500 mg tablet RxNorm: 714237 1 Tablet(s) PO TID 10/27/2017 11/05/2017 Inactive fluticasone 50 mcg/actuation nasal spray,suspension RxNorm: 0932035 1 [place] NASAL daily 07/26/2017 No Stop Date Active sucralfate 1 gram tablet RxNorm: 777758 1 Tablet(s) PO TID 07/26/2017 07/20/2018 Inactive Protonix 40 mg tablet,delayed release RxNorm: 552898 1 Tablet(s) PO daily 07/26/2017 10/23/2017 Inactive Tricor 145 mg tablet RxNorm: 750197 1 Tablet(s) PO daily 05/26/2017 05/20/2018 Inactive perphenazine-amitriptyline 2 mg-10 mg tablet RxNorm: 934846 2 Tablet(s) PO daily 05/26/2017 05/20/2018 Inactive bupropion HCl 75 mg tablet RxNorm: 928872 1/2 Tablet(s) PO BID 02/07/2017 12/20/2018 Inactive Eliquis 5 mg tablet RxNorm: 5140160 1 Tablet(s) PO BID 01/26/2017 01/20/2018 Inactive sotalol 80 mg tablet RxNorm: 9528899 1 Tablet(s) PO BID 01/26/2017 04/20/2018 Inactive potassium chloride ER 10 mEq tablet,extended release RxNorm: 305550 1 Tablet(s) PO UD take on days that you take a lasix pill 01/26/2017 01/20/2018 Inactive Synthroid 100 mcg tablet RxNorm: 921178 1 Tablet(s) PO daily 01/26/2017 02/12/2018 Inactive diltiazem ER 240 mg capsule,extended release RxNorm: 695147 1 Capsule(s) PO BID 01/26/2017 05/03/2017 Inactive Lasix 20 mg tablet RxNorm: 1 Tablet(s) PO daily as needed not more than one time a day 01/26/2017 05/25/2017 Inactive simvastatin 20 mg tablet RxNorm: 983629 1 Tablet(s) PO QHS 12/21/2016 12/15/2017 Inactive alendronate 70 mg tablet RxNorm: 891165 1 Tablet(s) PO weekly 12/21/2016 11/28/2017 Inactive omeprazole 40 mg capsule,delayed release RxNorm: 876124 1 Capsule(s) PO daily 10/19/2016 10/12/2017 Inactive metoprolol succinate ER 100 mg tablet,extended release 24 hr RxNorm: 033272 1.5 Tablet(s) PO daily 09/17/2016 10/18/2016 Inactive Dosage increased by Dr. Vazquez potassium chloride ER 10 mEq tablet,extended release RxNorm: 643822 1 Tablet(s) PO UD take on days that you take a lasix pill 08/31/2016 12/28/2016 Inactive Lasix 20 mg tablet RxNorm: 1 Tablet(s) PO daily as needed not more than one time a day 08/31/2016 12/28/2016 Inactive Kenalog 40 mg/mL suspension for injection RxNorm: 2701202 1 Milliliter(s) Inj 08/12/2016 08/12/2016 Inactive Tricor 145 mg tablet RxNorm: 957182 1 Tablet(s) PO daily 05/21/2016 05/15/2017 Inactive atenolol 25 mg tablet RxNorm: 276530 1 Tablet(s) PO daily 05/21/2016 08/30/2016 Inactive sucralfate 1 gram tablet RxNorm: 615571 1 Tablet(s) PO TID 05/21/2016 05/15/2017 Inactive enalapril maleate 10 mg tablet RxNorm: 624919 1 Tablet(s) PO daily 04/26/2016 08/30/2016 Inactive perphenazine-amitriptyline 2 mg-10 mg tablet RxNorm: 115781 2 Tablet(s) PO daily 04/26/2016 04/20/2017 Inactive fluticasone 50 mcg/actuation nasal spray,suspension RxNorm: 3642258 1 [place] NASAL daily 04/26/2016 07/25/2017 Inactive Synthroid 100 mcg tablet RxNorm: 765305 1 Tablet(s) PO daily 02/09/2016 01/25/2017 Inactive Synthroid 100 mcg tablet RxNorm: 836055 1 Tablet(s) PO daily 02/09/2016 02/08/2016 Inactive Keflex 500 mg capsule RxNorm: 029158 1 Capsule(s) PO TID 01/28/2016 02/01/2016 Inactive hydrochlorothiazide 25 mg tablet RxNorm: 129998 TAKE 1 TABLET DAILY 01/07/2016 08/30/2016 Inactive enalapril maleate 10 mg tablet RxNorm: 776940 1 Tablet(s) PO daily 12/26/2015 04/25/2016 Inactive hydrochlorothiazide 25 mg tablet RxNorm: 596810 1 Tablet(s) PO daily 12/08/2015 08/30/2016 Inactive omeprazole 40 mg capsule,delayed release RxNorm: 247502 1 Capsule(s) PO daily 12/08/2015 10/18/2016 Inactive simvastatin 20 mg tablet RxNorm: 919344 1 Tablet(s) PO QHS 11/14/2015 11/07/2016 Inactive alendronate 70 mg tablet RxNorm: 217533 1 Tablet(s) PO weekly 10/31/2015 10/24/2016 Inactive Synthroid 112 mcg tablet RxNorm: 251679 1 Tablet(s) PO daily 07/16/2015 02/08/2016 Inactive sucralfate 1 gram tablet RxNorm: 325103 1 Tablet(s) PO TID 06/17/2015 05/20/2016 Inactive perphenazine-amitriptyline 2 mg-10 mg tablet RxNorm: 896026 2 Tablet(s) PO daily 06/17/2015 04/25/2016 Inactive fluticasone 50 mcg/actuation nasal spray,suspension RxNorm: 3888732 1 [place] NASAL daily 06/17/2015 04/25/2016 Inactive fluorouracil 5 % topical cream RxNorm: 507692 APPLY 1 APPLICATION TOPICALLY TWO TIMES A DAY 06/16/2015 06/25/2015 Inactive fluticasone 50 mcg/actuation nasal spray,suspension RxNorm: 447838 1 [place] NASAL daily 06/12/2015 06/16/2015 Inactive atenolol 25 mg tablet RxNorm: 907551 1 Tablet(s) PO daily 05/14/2015 05/07/2016 Inactive Tricor 145 mg tablet RxNorm: 486118 1 Tablet(s) PO daily 04/23/2015 04/16/2016 Inactive Synthroid 125 mcg tablet RxNorm: 772525 1 Tablet(s) PO daily 03/31/2015 07/15/2015 Inactive fluorouracil 5 % topical cream RxNorm: 403313 1 Application TOP BID 03/31/2015 04/09/2015 Inactive Synthroid 137 mcg tablet RxNorm: 426822 1 Tablet(s) PO daily 12/25/2014 12/24/2014 Inactive Synthroid 137 mcg tablet RxNorm: 242740 1 Tablet(s) PO daily 12/25/2014 03/30/2015 Inactive Voltaren 1 % topical gel RxNorm: 382967 4 Gram(s) TOP QID 12/23/2014 04/21/2015 Inactive alendronate 70 mg tablet RxNorm: 639995 1 Tablet(s) PO weekly 12/23/2014 12/22/2014 Inactive alendronate 70 mg tablet RxNorm: 665211 1 Tablet(s) PO weekly 12/23/2014 10/30/2015 Inactive Fosamax 70 mg tablet RxNorm: 219821 1 Tablet(s) PO weekly QW 12/23/2014 01/27/2016 Inactive omeprazole 40 mg capsule,delayed release RxNorm: 357182 1 Capsule(s) PO daily 12/18/2014 12/07/2015 Inactive omeprazole 40 mg capsule,delayed release RxNorm: 928934 1 Capsule(s) PO daily 12/18/2014 12/17/2014 Inactive hydrochlorothiazide 25 mg tablet RxNorm: 781200 1 Tablet(s) PO daily 12/18/2014 12/17/2014 Inactive hydrochlorothiazide 25 mg tablet RxNorm: 151933 1 Tablet(s) PO daily 12/18/2014 12/07/2015 Inactive L-Lysine 1,000 mg tablet RxNorm: 609256 1 Tablet(s) PO daily No Start Date Active folic acid 400 mcg tablet RxNorm: 788719 1 Tablet(s) PO daily No Start Date Active B12 1000 mcg RxNorm: 1/2 Tablet(s) PO daily No Start Date Active Vitamin D3 1,000 unit chewable tablet RxNorm: 894589 1 Tablet(s) PO daily No Start Date Active metoprolol succinate ER 100 mg tablet,extended release 24 hr RxNorm: 611272 1 Tablet(s) PO daily No Start Date 09/16/2016 Inactive enalapril maleate 10 mg tablet RxNorm: 572737 1 Tablet(s) PO daily No Start Date 12/25/2015 Inactive perphenazine-amitriptyline 2 mg-10 mg tablet RxNorm: 906701 2 Tablet(s) PO daily No Start Date 06/16/2015 Inactive sucralfate 1 gram tablet RxNorm: 538643 1 Tablet(s) PO TID No Start Date 06/16/2015 Inactive hydrochlorothiazide 25 mg tablet RxNorm: 882121 1 Tablet(s) PO daily No Start Date 08/30/2016 Inactive vitamin E (dl, acetate) 400 unit capsule RxNorm: 456704 1 Capsule(s) PO daily No Start Date 03/05/2018 Inactive sotalol 80 mg tablet RxNorm: 8898016 1 Tablet(s) PO BID No Start Date 01/25/2017 Inactive Synthroid 150 mcg tablet RxNorm: 530450 1 Tablet(s) PO daily No Start Date 12/24/2014 Inactive diltiazem ER 120 mg capsule,24 hr,extended release RxNorm: 915709 1 Capsule(s) PO daily No Start Date 08/28/2018 Inactive simvastatin 20 mg tablet RxNorm: 913567 1 Tablet(s) PO daily No Start Date 11/13/2015 Inactive Vitamin C RxNorm: PO 1000mg qd No Start Date 03/05/2018 Inactive Fosamax 70 mg tablet RxNorm: 242163 1 Tablet(s) PO weekly No Start Date 12/22/2014 Inactive Tricor 145 mg tablet RxNorm: 908454 1 Tablet(s) PO daily No Start Date 04/22/2015 Inactive diltiazem ER 180 mg capsule,24 hr,extended release RxNorm: 048768 1 Capsule(s) PO daily No Start Date 03/05/2018 Inactive diltiazem 120 mg tablet RxNorm: 253826 1 Tablet(s) PO daily No Start Date 08/29/2018 Inactive diltiazem ER 240 mg capsule,extended release RxNorm: 957376 1 Capsule(s) PO BID No Start Date 01/25/2017 Inactive Eliquis 5 mg tablet RxNorm: 1100425 1 Tablet(s) PO BID No Start Date 01/25/2017 Inactive fluticasone 50 mcg/actuation nasal spray,suspension RxNorm: 895160 1 [place] NASAL daily No Start Date 06/11/2015 Inactive atenolol 25 mg tablet RxNorm: 924692 1 Tablet(s) PO daily No Start Date 05/13/2015 Inactive Medication Administered Medication Codes Instructions Start Date Status Kenalog 40 mg/mL suspension for injection RxNorm: 8621901 1Milliliter 08/12/2016 No longer Active Immunizations Vaccine [...] 31.6 pg 11/20/2018 Cbc With Differential Ord2 Love% 8.6 % 11/20/2018 Cbc With Differential Ord2 [...] 1.19 K/ul 11/20/2018 Cbc With Differential Ord2 Love ABS# 0.6 K/ul 11/20/2018 Cbc With Differential [...] 85.7 fl 09/20/2018 Cbc With Differential Ord2 Love% 14.1 % 09/20/2018 Cbc With Differential Ord2 [...] 1.27 K/ul 09/20/2018 Cbc With Differential Ord2 Love ABS# 0.7 K/ul 09/20/2018 Cbc With Differential Ord2 Eos ABS# 0.1 K/ul 09/20/2018 Cbc With Differential Ord2 Baso ABS# 0.0 K/ul 09/20/2018 Tsh Ord6 TSH (3rd IS) 0.97 uIU/mL 08/14/2018 Tibc Ord40 Iron 90 ug/dl 08/14/2018 Tibc Ord40 UIBC 380 ug/dL 08/14/2018 Tibc Ord40 TIBC 470 ug/dL 08/14/2018 Tibc Ord40 Fe-%Sat 19.1 % 08/14/2018 Comp Metabolic Aud626 NA 136 mEq/L 08/14/2018 Comp Metabolic Wni085 K 4.3 mEq/L 08/14/2018 Comp Metabolic Fmm508 CL 100 mEq/L 08/14/2018 Comp Metabolic Ewm390 CO2 28.0 mEq/L 08/14/2018 Comp Metabolic Ppl287 ANION GAP 12 08/14/2018 Comp Metabolic Oak486 GLUCOSE 111 mg/dL 08/14/2018 Comp Metabolic Yxu096 Creat 0.9 mg/dL 08/14/2018 Comp Metabolic Ghl666 eGFR 66 ml/min/1.73m2 08/14/2018 Comp Metabolic Din746 BUN 22 mg/dL 08/14/2018 Comp Metabolic Nkw490 B/C Ratio 25.3 Ratio 08/14/2018 Comp Metabolic Lhd521 CALCIUM 10.1 mg/dL 08/14/2018 Comp Metabolic Czy343 ALK PHOS 45 U/L 08/14/2018 Comp Metabolic Anb844 AST(SGOT) 16 U/L 08/14/2018 Comp Metabolic Wwr328 ALT(SGPT) 7 U/L 08/14/2018 Comp Metabolic Xja743 BILI T 0.4 mg/dL 08/14/2018 Comp Metabolic Mqs015 ALBUMIN 4.0 g/dL 08/14/2018 Comp Metabolic Ipl426 TPRO 7.0 g/dL 08/14/2018 Comp Metabolic Tfl181 GLOB 3.0 g/dL 08/14/2018 Comp Metabolic Zkt897 A/G Ratio 1.3 Ratio 08/14/2018 Comp Metabolic Ohl938 Osmo 276 mOsmo 08/14/2018 Cbc With Differential [...] 26.2 pg 08/14/2018 Cbc With Differential Ord2 Love% 9.1 % 08/14/2018 Cbc With Differential Ord2 Eos% 1.8 % 08/14/2018 Cbc With Differential Ord2 MCHC 31.0 pg 08/14/2018 Cbc With Differential Ord2 PLT 293 K/ul 08/14/2018 Cbc With Differential Ord2 Baso% 0.5 % 08/14/2018 Cbc With Differential Ord2 Neut ABS# 4.34 K/ul 08/14/2018 Cbc With Differential Ord2 Lymph ABS# 0.93 K/ul 08/14/2018 Cbc With Differential Ord2 Love ABS# 0.5 K/ul 08/14/2018 Cbc With Differential Ord2 Eos ABS# 0.1 K/ul 08/14/2018 Cbc With Differential Ord2 Baso ABS# 0.0 K/ul 08/14/2018 Free T4 Rtn341 FREE T4 1.00 ng/dL 08/14/2018 Tibc Ord40 [...] 24.9 pg 06/21/2018 Cbc With Differential Ord2 Love% 15.0 % 06/21/2018 Cbc With Differential Ord2 [...] 1.35 K/ul 06/21/2018 Cbc With Differential Ord2 Love ABS# 0.9 K/ul 06/21/2018 Cbc With Differential [...] 24.9 pg 06/01/2018 Cbc With Differential Ord2 Love% 12.8 % 06/01/2018 Cbc With Differential Ord2 [...] 0.81 K/ul 06/01/2018 Cbc With Differential Ord2 Love ABS# 0.7 K/ul 06/01/2018 Cbc With Differential [...] 29.9 pg 03/17/2018 Cbc With Differential Ord2 Love% 13.3 % 03/17/2018 Cbc With Differential Ord2 [...] 0.90 K/ul 03/17/2018 Cbc With Differential Ord2 Love ABS# 0.8 K/ul 03/17/2018 Cbc With Differential [...] 30.2 pg 02/22/2018 Cbc With Differential Ord2 Love% 11.5 % 02/22/2018 Cbc With Differential Ord2 [...] 0.86 K/ul 02/22/2018 Cbc With Differential Ord2 Love ABS# 0.7 K/ul 02/22/2018 Cbc With Differential Ord2 Eos ABS# 0.2 K/ul 02/22/2018 Cbc With Differential Ord2 Baso ABS# 0.1 K/ul 02/22/2018 Tsh Ord6 TSH (3rd IS) 0.66 uIU/mL 02/22/2018 Free T4 Jvr219 FREE T4 1.22 ng/dL 02/22/2018 Comp Metabolic Xld545 NA 136 mEq/L 02/22/2018 Comp Metabolic Mln589 K 4.4 mEq/L 02/22/2018 Comp Metabolic Ppy288 CL 102 mEq/L 02/22/2018 Comp Metabolic Yku292 CO2 23.0 mEq/L 02/22/2018 Comp Metabolic Fet980 ANION GAP 15 02/22/2018 Comp Metabolic Ygl127 GLUCOSE 94 mg/dL 02/22/2018 Comp Metabolic Ktw183 Creat 1.2 mg/dL 02/22/2018 Comp Metabolic Sxz554 eGFR 46 ml/min/1.73m2 02/22/2018 Comp Metabolic Kbn128 BUN 31 mg/dL 02/22/2018 Comp Metabolic Vvh243 B/C Ratio 25.8 Ratio 02/22/2018 Comp Metabolic Epn741 CALCIUM 9.2 mg/dL 02/22/2018 Comp Metabolic Obj420 ALK PHOS 34 U/L 02/22/2018 Comp Metabolic Wgr412 AST(SGOT) 18 U/L 02/22/2018 Comp Metabolic Msg452 ALT(SGPT) 8 U/L 02/22/2018 Comp Metabolic Lae778 BILI T 0.4 mg/dL 02/22/2018 Comp Metabolic Zhr848 ALBUMIN 3.6 g/dL 02/22/2018 Comp Metabolic Hdt062 TPRO 6.2 g/dL 02/22/2018 Comp Metabolic Vjj615 GLOB 2.6 g/dL 02/22/2018 Comp Metabolic Ofz110 A/G Ratio 1.4 Ratio 02/22/2018 Comp Metabolic Hrx043 Osmo 278 mOsmo 02/22/2018 Free T4 Kxt162 FREE T4 1.11 ng/dL 10/27/2017 Lipid Ord30 [...] 30.7 pg 10/27/2017 Cbc With Differential Ord2 Love% 11.3 % 10/27/2017 Cbc With Differential Ord2 [...] 1.16 K/ul 10/27/2017 Cbc With Differential Ord2 Love ABS# 0.6 K/ul 10/27/2017 Cbc With Differential Ord2 Eos ABS# 0.2 K/ul 10/27/2017 Cbc With Differential Ord2 Baso ABS# 0.0 K/ul 10/27/2017 Comp Metabolic Yji536 NA 135 mEq/L 10/27/2017 Comp Metabolic Rig617 K 4.7 mEq/L 10/27/2017 Comp Metabolic Prc102 CL 101 mEq/L 10/27/2017 Comp Metabolic Zkx108 CO2 23.0 mEq/L 10/27/2017 Comp Metabolic Hbh366 ANION GAP 16 10/27/2017 Comp Metabolic Egz809 GLUCOSE 84 mg/dL 10/27/2017 Comp Metabolic Pxw016 Creat 1.2 mg/dL 10/27/2017 Comp Metabolic Anv457 eGFR 46 ml/min/1.73m2 10/27/2017 Comp Metabolic Ayl672 BUN 30 mg/dL 10/27/2017 Comp Metabolic Thv543 B/C Ratio 25.2 Ratio 10/27/2017 Comp Metabolic Ynf207 CALCIUM 9.4 mg/dL 10/27/2017 Comp Metabolic Ykf888 ALK PHOS 30 U/L 10/27/2017 Comp Metabolic Cun717 AST(SGOT) 25 U/L 10/27/2017 Comp Metabolic Afi904 ALT(SGPT) 12 U/L 10/27/2017 Comp Metabolic Clr119 BILI T 0.5 mg/dL 10/27/2017 Comp Metabolic Vss625 ALBUMIN 3.7 g/dL 10/27/2017 Comp Metabolic Ghy665 TPRO 6.5 g/dL 10/27/2017 Comp Metabolic Vnz679 GLOB 2.8 g/dL 10/27/2017 Comp Metabolic Gni464 A/G Ratio 1.3 Ratio 10/27/2017 Comp Metabolic Rxg707 Osmo 275 mOsmo 10/27/2017 Hgb & Hct Ord65 HGB 12.2 g/dl 07/29/2017 Hgb & Hct Ord65 HCT 38.8 % 07/29/2017 Tibc Ord40 Iron 79 ug/dl 07/26/2017 Tibc Ord40 UIBC 380 ug/dL 07/26/2017 Tibc Ord40 TIBC 459 ug/dL 07/26/2017 Tibc Ord40 Fe-%Sat 17.2 % 07/26/2017 Tsh Ord6 TSH (3rd IS) 0.46 uIU/mL 07/26/2017 Ferritin Ord22 FERRITIN 83.6 ng/mL 07/26/2017 Free T4 Ssr402 FREE T4 1.00 ng/dL 07/26/2017 Tibc Ord40 [...] 31.0 pg 08/02/2016 Cbc With Differential Ord2 Love% 9.4 % 08/02/2016 Cbc With Differential Ord2 [...] 1.44 K/ul 08/02/2016 Cbc With Differential Ord2 Love ABS# 0.7 K/ul 08/02/2016 Cbc With Differential Ord2 Eos ABS# 0.3 K/ul 08/02/2016 Cbc With Differential Ord2 Baso ABS# 0.1 K/ul 08/02/2016 Lipid Ord30 CHOL 142 mg/dL 08/02/2016 Lipid Ord30 HDL 40.0 mg/dl 08/02/2016 Lipid Ord30 TRIG 169 mg/dL 08/02/2016 Lipid Ord30 LDL 68 mg/dL 08/02/2016 Lipid Ord30 C/HDL 3.6 Ratio 08/02/2016 Comp Metabolic Qvk024 NA 139 mEq/L 08/02/2016 Comp Metabolic Iow968 K 5.2 mEq/L 08/02/2016 Comp Metabolic Mrl434 CL 108 mEq/L 08/02/2016 Comp Metabolic Oef823 CO2 22.0 mEq/L 08/02/2016 Comp Metabolic Ttq367 ANION GAP 14 08/02/2016 Comp Metabolic Skv313 GLUCOSE 103 mg/dL 08/02/2016 Comp Metabolic Koq876 Creat 1.1 mg/dL 08/02/2016 Comp Metabolic Say486 eGFR 54 ml/min/1.73m2 08/02/2016 Comp Metabolic Iye700 BUN 26 mg/dL 08/02/2016 Comp Metabolic Vsl722 B/C Ratio 24.8 Ratio 08/02/2016 Comp Metabolic Ydm551 CALCIUM 9.4 mg/dL 08/02/2016 Comp Metabolic Tyu414 ALK PHOS 41 U/L 08/02/2016 Comp Metabolic Gjq020 AST(SGOT) 18 U/L 08/02/2016 Comp Metabolic Smw829 ALT(SGPT) 10 U/L 08/02/2016 Comp Metabolic Ufb711 BILI T 0.3 mg/dL 08/02/2016 Comp Metabolic Myf616 ALBUMIN 3.7 g/dL 08/02/2016 Comp Metabolic Czd223 TPRO 6.5 g/dL 08/02/2016 Comp Metabolic Olm547 GLOB 2.8 g/dL 08/02/2016 Comp Metabolic Fjx245 A/G Ratio 1.3 Ratio 08/02/2016 Comp Metabolic Msl717 Osmo 283 mOsmo 08/02/2016 Free T4 Ebu929 FREE T4 1.08 ng/dL 08/02/2016 Tsh Ord6 hTSH II 0.35 uIU/mL 05/13/2016 Free T4 Knb882 FREE T4 0.78 ng/dL 05/13/2016 Free T4 Gkt263 FREE T4 1.13 ng/dL 01/28/2016 Tsh Ord6 [...] 30.2 pg 07/14/2015 Cbc With Differential Ord2 Love% 9.1 % 07/14/2015 Cbc With Differential Ord2 [...] 1.80 K/ul 07/14/2015 Cbc With Differential Ord2 Love ABS# 0.7 K/ul 07/14/2015 Cbc With Differential [...] Ord30 C/HDL 3.0 Ratio 07/14/2015 Comp Metabolic Ldc573 NA 136 mEq/L 07/14/2015 Comp Metabolic Agk011 K 4.4 mEq/L 07/14/2015 Comp Metabolic Ahz759 CL 101 mEq/L 07/14/2015 Comp Metabolic Ksh028 CO2 27.0 mEq/L 07/14/2015 Comp Metabolic Zyr856 ANION GAP 12 07/14/2015 Comp Metabolic Zsk052 GLUCOSE 97 mg/dL 07/14/2015 Comp Metabolic Rsn801 Creat 1.0 mg/dL 07/14/2015 Comp Metabolic Fki064 eGFR 56 ml/min/1.73m2 07/14/2015 Comp Metabolic Omp325 BUN 27 mg/dL 07/14/2015 Comp Metabolic Fre199 B/C Ratio 26.7 Ratio 07/14/2015 Comp Metabolic Hwf217 CALCIUM 9.3 mg/dL 07/14/2015 Comp Metabolic Whh988 ALK PHOS 33 U/L 07/14/2015 Comp Metabolic Ueu464 AST(SGOT) 14 U/L 07/14/2015 Comp Metabolic Rcc698 ALT(SGPT) 8 U/L 07/14/2015 Comp Metabolic Yes637 BILI T 0.4 mg/dL 07/14/2015 Comp Metabolic Lcq146 ALBUMIN 3.8 g/dL 07/14/2015 Comp Metabolic Lju855 TPRO 6.6 g/dL 07/14/2015 Comp Metabolic Rxa015 GLOB 2.8 g/dL 07/14/2015 Comp Metabolic Nkd068 A/G Ratio 1.4 Ratio 07/14/2015 Comp Metabolic Cyc588 Osmo 277 mOsmo 07/14/2015 Tsh Ord6 hTSH II 0.23 uIU/mL 07/14/2015 Free T4 Gtr904 FREE T4 1.19 ng/dL 07/14/2015 Cbc With [...] Ord30 C/HDL 3.4 Ratio 03/26/2015 Comp Metabolic Cke692 NA 135 mEq/L 03/26/2015 Comp Metabolic Kbx877 K 5.0 mEq/L 03/26/2015 Comp Metabolic Qyy781 CL 99 mEq/L 03/26/2015 Comp Metabolic Uqs367 CO2 27.0 mEq/L 03/26/2015 Comp Metabolic Wtv194 ANION GAP 14 03/26/2015 Comp Metabolic Mdh823 GLUCOSE 88 mg/dL 03/26/2015 Comp Metabolic Edx778 Creat 1.1 mg/dL 03/26/2015 Comp Metabolic Whi267 eGFR 50 ml/min/1.73m2 03/26/2015 Comp Metabolic Sir069 BUN 27 mg/dL 03/26/2015 Comp Metabolic Kzf091 B/C Ratio 24.1 Ratio 03/26/2015 Comp Metabolic Czt937 CALCIUM 9.9 mg/dL 03/26/2015 Comp Metabolic Wgq525 ALK PHOS 30 U/L 03/26/2015 Comp Metabolic Pms068 AST(SGOT) 16 U/L 03/26/2015 Comp Metabolic Umf259 ALT(SGPT) 8 U/L 03/26/2015 Comp Metabolic Xnz848 BILI T 0.4 mg/dL 03/26/2015 Comp Metabolic Xbg469 ALBUMIN 3.9 g/dL 03/26/2015 Comp Metabolic Ppd342 TPRO 6.4 g/dL 03/26/2015 Comp Metabolic Dzl356 GLOB 2.5 g/dL 03/26/2015 Comp Metabolic Faw651 A/G Ratio 1.6 Ratio 03/26/2015 Comp Metabolic Nhq564 Osmo 275 mOsmo 03/26/2015 Free T4 Tog296 FREE T4 1.22 ng/dL 03/26/2015 Tsh Ord6 hTSH II 0.20 uIU/mL 03/26/2015 Vitamin D 25 Oh Hpa1821 VITAMIN D, 25 HYDROXY 51.09 ng/mL 12/25/2014 Tsh Ord6 hTSH II 0.09 uIU/mL 12/23/2014 Free T4 Liy431 FREE T4 1.30 ng/dL 12/23/2014 Comp Metabolic Ejd800 NA 135 mEq/L 12/23/2014 Comp Metabolic Tbt611 K 4.7 mEq/L 12/23/2014 Comp Metabolic Dbl440 CL 100 mEq/L 12/23/2014 Comp Metabolic Eon655 CO2 23.0 mEq/L 12/23/2014 Comp Metabolic Sro244 ANION GAP 17 12/23/2014 Comp Metabolic Wxh225 GLUCOSE 93 mg/dL 12/23/2014 Comp Metabolic Bhm353 Creat 1.1 mg/dL 12/23/2014 Comp Metabolic Nhb757 eGFR 53 ml/min/1.73m2 12/23/2014 Comp Metabolic Wtp334 BUN 26 mg/dL 12/23/2014 Comp Metabolic Esl202 B/C Ratio 24.3 Ratio 12/23/2014 Comp Metabolic Fbp394 CALCIUM 9.5 mg/dL 12/23/2014 Comp Metabolic Vph590 ALK PHOS 27 U/L 12/23/2014 Comp Metabolic Zvf219 AST(SGOT) 16 U/L 12/23/2014 Comp Metabolic Wbn827 ALT(SGPT) 8 U/L 12/23/2014 Comp Metabolic Byo618 BILI T 0.4 mg/dL 12/23/2014 Comp Metabolic Iis693 ALBUMIN 3.9 g/dL 12/23/2014 Comp Metabolic Ept889 TPRO 6.7 g/dL 12/23/2014 Comp Metabolic Hqf493 GLOB 2.8 g/dL 12/23/2014 Comp Metabolic Bfq721 A/G Ratio 1.4 Ratio 12/23/2014 Comp Metabolic Jer791 Osmo 275 mOsmo 12/23/2014 Review of Systems [...] tenderness 12/21/2018 None Full Exam - General 1994 [...] tenderness 08/21/2018 None Full Exam - General 1994 [...] bilaterally 07/17/2018 None Full Exam - General 1994 Respiratory respiratory effort/rhythm Overall: no retractions 07/17/2018 [...] 07/17/2018 None Full Exam - General 1994 Musculoskeletal [...] inspection of skin Consistency: thick 03/31/2015 left methodist and left nasal bridge - actinic keratosis [...] SUBSEQ VISIT CPT- 4: G0439 05/05/2018 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-[address]: 147808138 CPT-4: G0436 04/11/2017 PNEUMOCOCCAL VACC [address]: 21159704 CPT-4: 04792 02/09/2017 FLU VACC PRSV FREE INC ANTIG CPT-4: 97143 02/09/2017 ADMIN INFLUENZA VIRUS VAC CPT-4: G0008 02/09/2017 ADMIN PNEUMOCOCCAL VACCINE SNOMED CT: 64146078 CPT-4: G0009 02/09/2017 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-[address]: 597115197 CPT-4: G0436 02/07/2017 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-[address]: 022078171 CPT-4: G0436 10/19/2016 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-[address]: 895957603 CPT-4: G0436 08/31/2016 TRIAMCINOLONE ACET INJ NOS CPT-4: J3301 08/12/2016 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-[address]: 557276758 CPT-4: G0436 07/28/2016 ADMIN INFLUENZA VIRUS VAC CPT-4: G0008 01/28/2016 FLU VACC 4 JULISA 3 YRS PLUS IM SNOMED CT: 49076501 CPT-4: 46133 01/28/2016 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-[address]: 662261575 CPT-4: G0436 07/29/2015 Vital Signs Date Vital 12/21/2018 Blood Pressure 1: 160/80 Code: 8480-6 BMI: 23.2 Code: 35098-9 Heart Rate 1: 80 bpm Height: 5'4" SpO2: 98% Weight: 135 lbs 11/20/2018 Blood Pressure 1: 144/82 Code: 8480-6 BMI: 23.0 Code: 78928-6 Heart Rate 1: 94 bpm Height: 5'4" SpO2: 94% Weight: 134 lbs 08/21/2018 Blood Pressure 1: 144/82 Code: 8480-6 BMI: 23.9 Code: 24765-1 Heart Rate 1: 99 bpm Height: 5'4" SpO2: 95% Weight: 139 lbs 07/17/2018 Blood Pressure 1: 126/54 Code: 8480-6 BMI: 24.4 Code: 97541-1 Heart Rate 1: 70 bpm Height: 5'4" SpO2: 98% Weight: 142 lbs 06/05/2018 Blood Pressure 1: 122/60 Code: 8480-6 BMI: 25.4 Code: 23212-6 Heart Rate 1: 74 bpm Height: 5'4" SpO2: 98% Weight: 148 lbs 05/05/2018 Blood Pressure 1: 130/64 Code: 8480-6 BMI: 25.1 Code: 06763-1 Heart Rate 1: 72 bpm Height: 5'4" SpO2: 97% Weight: 146 lbs 04/03/2018 Blood Pressure 1: 142/80 Code: 8480-6 BMI: 25.2 Code: 89523-3 Heart Rate 1: 99 bpm Height: 5'4" SpO2: 97% Weight: 147 lbs 03/06/2018 Blood Pressure 1: 140/80 Code: 8480-6 BMI: 26.1 Code: 39646-2 Heart Rate 1: 71 bpm Height: 5'4" SpO2: 98% Weight: 152 lbs 02/22/2018 Blood Pressure 1: 146/68 Code: 8480-6 BMI: 26.6 Code: 30749-6 Heart Rate 1: 88 bpm Height: 5'4" SpO2: 97% Weight: 155 lbs 12/13/2017 Blood Pressure 1: 132/68 Code: 8480-6 BMI: 26.6 Code: 70018-6 Heart Rate 1: 72 bpm Height: 5'4" SpO2: 94% Weight: 154 lbs 14 oz 11/29/2017 Blood Pressure 1: 130/64 Code: 8480-6 BMI: 26.1 Code: 35393-8 Heart Rate 1: 81 bpm Height: 5'4" SpO2: 94% Weight: 152 lbs 10/27/2017 Blood Pressure 1: 120/62 Code: 8480-6 BMI: 25.9 Code: 23856-5 Heart Rate 1: 70 bpm Height: 5'4" SpO2: 96% Weight: 151 lbs 07/26/2017 Blood Pressure 1: 146/70 Code: 8480-6 BMI: 26.3 Code: 98328-0 Heart Rate 1: 69 bpm Height: 5'4" SpO2: 98% Weight: 153 lbs 05/26/2017 Blood Pressure 1: 142/76 Code: 8480-6 BMI: 26.4 Code: 66055-5 Heart Rate 1: 59 bpm Height: 5'4" SpO2: 99% Weight: 154 lbs 04/11/2017 Blood Pressure 1: 134/64 Code: 8480-6 BMI: 26.6 Code: 62759-1 Heart Rate 1: 65 bpm Height: 5'4" SpO2: 98% Weight: 155 lbs 02/07/2017 Blood Pressure 1: 120/72 Code: 8480-6 Heart Rate 1: 72 bpm Height: 5'4" SpO2: 96% Weight: 01/26/2017 Blood Pressure 1: 146/68 Code: 8480-6 BMI: 26.4 Code: 78840-8 Heart Rate 1: 96 bpm Height: 5'4" SpO2: 97% Weight: 154 lbs 10/19/2016 Blood Pressure 1: 144/76 Code: 8480-6 BMI: 25.8 Code: 48248-9 Heart Rate 1: 68 bpm Height: 5'4" SpO2: 96% Weight: 150 lbs 8 oz 09/22/2016 Blood Pressure 1: 122/80 Code: 8480-6 BMI: 26.1 Code: 91286-7 Heart Rate 1: 111 bpm Height: 5'4" SpO2: 97% Weight: 152 lbs 08/31/2016 Blood Pressure 1: 152/82 Code: 8480-6 BMI: 27.1 Code: 19669-6 Heart Rate 1: 118 bpm Height: 5'4" SpO2: 96% Weight: 158 lbs 08/12/2016 Blood Pressure 1: 146/78 Code: 8480-6 BMI: 26.9 Code: 59726-7 Heart Rate 1: 68 bpm Height: 5'4" SpO2: 97% Weight: 157 lbs 07/28/2016 Blood Pressure 1: 128/64 Code: 8480-6 BMI: 27.1 Code: 06966-2 Heart Rate 1: 63 bpm Height: 5'4" SpO2: 97% Weight: 158 lbs 01/28/2016 Blood Pressure 1: 130/70 Code: 8480-6 BMI: 27.3 Code: 26774-7 Heart Rate 1: 60 bpm Height: 5'4" SpO2: 95% Weight: 159 lbs 07/29/2015 Blood Pressure 1: 136/80 Code: 8480-6 BMI: 28.1 Code: 06722-1 Heart Rate 1: 68 bpm Height: 5'4" SpO2: 96% Weight: 163 lbs 8 oz 03/31/2015 Blood Pressure 1: 138/88 Code: 8480-6 BMI: 27.5 Code: 32865-7 Heart Rate 1: 72 bpm Height: 5'4" Weight: 160 lbs 12/23/2014 Blood Pressure 1: 138/68 Code: 8480-6 BMI: 27.1 Code: 55759-8 Heart Rate 1: 63 bpm Height: 5'4" [...] data Encounters Encounter Performer Location Codes Date ([id number]) 78523 EST. PATIENT, LEVEL IV Diagnosis: Atrophy of thyroid (acquired)[ICD10: E03.4] Diagnosis: Essential (primary) hypertension[ICD10: I10] Kandi Cabrera MD, [facility] CPT-4: 85193 12/21/2018 ([id number]) 22346 EST. PATIENT, LEVEL IV Diagnosis: Cough[ICD10: R05] Diagnosis: Other iron deficiency anemias[ICD10: D50.8] Diagnosis: Essential (primary) hypertension[ICD10: I10] Kandi Cabrera MD, [facility] CPT-4: 05769 11/20/2018 ([id number]) 63855 EST. PATIENT, LEVEL IV Diagnosis: Atrophy of thyroid (acquired)[ICD10: E03.4] Diagnosis: Other iron deficiency anemias[ICD10: D50.8] Diagnosis: Pain in right hip[ICD10: M25.551] Diagnosis: Essential (primary) hypertension[ICD10: I10] Kandi Cabrera MD, [facility] CPT-4: 93196 08/21/2018 ([id number]) 22924 EST. PATIENT, LEVEL IV Diagnosis: Essential (primary) hypertension[ICD10: I10] Diagnosis: Other iron deficiency anemias[ICD10: D50.8] Diagnosis: Tobacco abuse counseling[ICD10: Z71.6] Diagnosis: Chronic atrial fibrillation[ICD10: I48.2] Kandi Cabrera MD, [facility] CPT-4: 81405 07/17/2018 ([id number]) BEHAV CHNG SMOKING 3-10 MIN Diagnosis: [ICD9: ] Diagnosis: [ICD9: ] Diagnosis: [ICD9: ] Diagnosis: [ICD9: ] Kandi Cabrera MD, [facility] CPT-4: 92235 07/17/2018 [id number] 28000 EST. PATIENT, LEVEL IV Diagnosis: Other specified anemias[ICD10: D64.89] Diagnosis: Other insomnia[ICD10: G47.09] Diagnosis: Atrophy of thyroid (acquired)[ICD10: E03.4] Diagnosis: Allergic urticaria[ICD10: L50.0] Kandi Cabrera MD, [facility] CPT-4: 54846 06/05/2018 [id number]) 39059 EST. PATIENT, LEVEL IV Diagnosis: Essential (primary) hypertension[ICD10: I10] Diagnosis: Nonrheumatic aortic (valve) stenosis[ICD10: I35.0] Diagnosis: Atrophy of thyroid (acquired)[ICD10: E03.4] Diagnosis: Chronic atrial fibrillation[ICD10: I48.2] Kandi Cabrera MD, [facility] CPT-4: 00803 04/03/2018 ([id number]) 48301 EST. PATIENT, LEVEL IV Diagnosis: Essential (primary) hypertension[ICD10: I10] Diagnosis: Chronic atrial fibrillation[ICD10: I48.2] Diagnosis: Nonrheumatic aortic (valve) stenosis[ICD10: I35.0] Diagnosis: Age-related osteoporosis without current pathological fracture[ICD10: M81.0] Kandi Cabrera MD, [facility] CPT-4: 80148 03/06/2018 56414 EST. PATIENT, LEVEL III Diagnosis: Low back pain[ICD10: M54.5] Diagnosis: Dysuria[ICD10: R30.0] Diagnosis: Gastro-esophageal reflux disease without esophagitis[ICD10: K21.9] Payton Cabrera MD, [facility] CPT-4: 25598 02/22/2018 [id number]) 79093 EST. PATIENT, LEVEL III Diagnosis: Atrophy of thyroid (acquired)[ICD10: E03.4] Diagnosis: Other iron deficiency anemias[ICD10: D50.8] Diagnosis: Epigastric pain[ICD10: R10.13] Kandi Cabrera MD, [facility] CPT-4: 04903 12/13/2017 ([id number]) 51944 EST. PATIENT, LEVEL IV Diagnosis: Diverticulitis of large intestine without perforation or abscess without bleeding[ICD10: K57.32] Kandi Cabrera MD, [facility] CPT-4: 02061 11/29/2017 ([id number]) 45160 EST. PATIENT, LEVEL IV Diagnosis: Atrophy of thyroid (acquired)[ICD10: E03.4] Diagnosis: Other iron deficiency anemias[ICD10: D50.8] Diagnosis: Epigastric pain[ICD10: R10.13] Diagnosis: Right lower quadrant pain[ICD10: R10.31] Diagnosis: Left lower quadrant pain[ICD10: R10.32] Kandi Cabrera MD, [facility] CPT-4: 54979 10/27/2017 47549 EST. PATIENT, LEVEL IV Diagnosis: Atrophy of thyroid (acquired)[ICD10: E03.4] Diagnosis: Other iron deficiency anemias[ICD10: D50.8] Diagnosis: Essential (primary) hypertension[ICD10: I10] Diagnosis: Gastro-esophageal reflux disease without esophagitis[ICD10: K21.9] Payton Cabrera MD, [facility] CPT-4: 14270 07/26/2017 [id number]) 66033 EST. PATIENT, LEVEL IV Diagnosis: Other iron deficiency anemias[ICD10: D50.8] Diagnosis: Atrophy of thyroid (acquired)[ICD10: E03.4] Diagnosis: Tobacco use[ICD10: Z72.0] Diagnosis: Essential (primary) hypertension[ICD10: I10] Diagnosis: Low back pain[ICD10: M54.5] Kandi Cabrera MD, [facility] CPT-4: 43564 05/26/2017 ([id number]) 58499 EST. PATIENT, LEVEL IV Diagnosis: Shortness of breath[ICD10: R06.02] Diagnosis: Tobacco use[ICD10: Z72.0] Diagnosis: Chronic atrial fibrillation[ICD10: I48.2] Kandi Cabrera MD, [facility] CPT-4: 27093 04/11/2017 [id number]) 78873 EST. PATIENT, LEVEL III Diagnosis: Unsteadiness on feet[ICD10: R26.81] Diagnosis: Tobacco use[ICD10: Z72.0] Kandi Cabrera MD, [facility] CPT-4: 84395 02/07/2017 ([id number]) 33376 EST. PATIENT, LEVEL IV Diagnosis: Cough[ICD10: R05] Diagnosis: Essential (primary) hypertension[ICD10: I10] Diagnosis: Chronic atrial fibrillation[ICD10: I48.2] Diagnosis: Unsteadiness on feet[ICD10: R26.81] Kandi Cabrera MD, [facility] CPT- 4: 81945 01/26/2017 ([id number]) 65186 EST. PATIENT, LEVEL IV Diagnosis: Essential (primary) hypertension[ICD10: I10] Diagnosis: Atrophy of thyroid (acquired)[ICD10: E03.4] Diagnosis: Tobacco use[ICD10: Z72.0] Diagnosis: Chronic atrial fibrillation[ICD10: I48.2] Diagnosis: Mixed hyperlipidemia[ICD10: E78.2] Kandi Cabrera MD, [facility] CPT- 4: 13258 10/19/2016 ([id number]) 86247 EST. PATIENT, LEVEL IV Diagnosis: Atrophy of thyroid (acquired)[ICD10: E03.4] Diagnosis: Mixed hyperlipidemia[ICD10: E78.2] Diagnosis: Essential (primary) hypertension[ICD10: I10] Kandi Cabrera MD, [facility] CPT-4: 27183 09/22/2016 ([id number]) 70784 EST. PATIENT, LEVEL IV Diagnosis: Essential (primary) hypertension[ICD10: I10] Diagnosis: Atrophy of thyroid (acquired)[ICD10: E03.4] Diagnosis: Chronic atrial fibrillation[ICD10: I48.2] Kandi Cabrera MD, [facility] CPT-4: 66960 08/31/2016 ([id number]) 37789 EST. PATIENT, LEVEL III Diagnosis: Low back pain[ICD10: M54.5] Diagnosis: Sacroiliitis, not elsewhere classified[ICD10: M46.1] Janeen Cabrera MD, [facility] CPT-4: 32815 08/12/2016 ([id number]) 98513 EST. PATIENT, LEVEL IV Diagnosis: Mixed hyperlipidemia[ICD10: E78.2] Diagnosis: Essential (primary) hypertension[ICD10: I10] Diagnosis: Atrophy of thyroid (acquired)[ICD10: E03.4] [facility] CPT-4: 52509 07/28/2016 ([id number] 14920 EST. PATIENT, LEVEL IV Diagnosis: Hypothyroidism, unspecified[ICD10: E03.9] Diagnosis: Essential (primary) hypertension[ICD10: I10] Diagnosis: Mixed hyperlipidemia[ICD10: E78.2] Diagnosis: Cellulitis of left lower limb[ICD10: L03.116] Diagnosis: Encounter for immunization[ICD10: Z23] [facility] CPT-4: 85902 01/28/2016 ([id number]) 10867 EST. PATIENT, LEVEL IV Diagnosis: Essential (primary) hypertension[ICD10: I10] Diagnosis: Hypothyroidism, unspecified[ICD10: E03.9] Diagnosis: Diarrhea, unspecified[ICD10: R19.7] Diagnosis: Tobacco use[ICD10: Z72.0] Diagnosis: Tobacco abuse counseling[ICD10: Z71.6] Diagnosis: Other obesity due to excess calories[ICD10: E66.09] [facility] CPT-4: 72080 07/29/2015 ([id number] 17056 EST. PATIENT, LEVEL IV Diagnosis: Essential (primary) hypertension[ICD10: I10] Diagnosis: Hypothyroidism, unspecified[ICD10: E03.9] Diagnosis: Actinic keratosis[ICD10: L57.0] [facility] CPT-4: 66202 03/31/2015 ([id number]) OFFICE VISIT, NEW - LEVEL 4 Diagnosis: ESSENTIAL HYPERTENSION[ICD9: 401.9] Diagnosis: HYPOTHYROIDISM[ICD9: 244.9] Diagnosis: HYPERLIPIDEMIA[ICD9: 272.4] Diagnosis: Osteoporosis[ICD9: 733.00] Diagnosis: OSTEOARTH NOS-UNSPEC[ICD9: 715.90] Diagnosis: Sacroiliitis[ICD9: 720.2] [facility] CPT-4: 20704 12/23/2014 Plan of Care Planned Activity Notes [...] based on previous levels of control. 12/21/2018 Patient Education: Patient Medication Summary Completed [...] cardiovascular status. 11/20/2018 Appointment: Kandi Cabrera WPtel: [address] [place], [place] [address] (15 min) Moderate 11/20/2018 Patient Education: Patient [...] valve replacement. 08/21/2018 Appointment: Kandi Cabrera WPtel: [facility]5 [facility]66[facility] (15 min) Moderate 08/21/2018 Patient Education: Patient [...] cardiovascular status. 07/17/2018 Appointment: Kandi Cabrera WPtel: [address] [place], [place] [phone] (15 min) Moderate 07/17/2018 Patient Education: Patient Medication Summary Completed 07/17/2018 Patient Education: Hypertension Completed 07/17/2018 Appointment: Kandi Cabrera WPtel: [address] [place], [place] [phone] (15 min) Moderate 07/11/2018 Visit Plan: Hypothyroidism [...] on hydroxyzine. 06/05/2018 [facility]ment[phone] ([facility] min) Moderate 06/05/2018 Patient Education: [...] Addiction Completed 05/05/2018 [facility]ment[phone] (15 min) Moderate 04/11/2018 Visit Plan: [...] not improving. 04/03/2018 Appointment: [phone] [place] (15 min) Moderate 04/03/2018 Patient Education: Patient [...] a conversation about surgical intervention with her Packing Attendant. 03/06/2018 Appointment: Kandi Cabrera WPtel: [phone] [facility] (15 min) Moderate 03/06/2018 Patient Education: [...] improving. 02/22/2018 Appointment: Payton Leon WPtel: [phone] [facility] [place] (15 min) Moderate 02/22/2018 Patient Education: Patient Medication Summary Completed 02/22/2018 Patient Education: Back Pain Completed 02/22/2018 Visit Plan: Diarrhea - improved - pt advised to avoid seeds, nuts, popcorn, or any other food which has been proven to upset the pt's stomach. 12/13/2017 Appointment: Kandi Cabrera WPtel: [phone] [facility] (15 min) Moderate 12/13/2017 Patient Education: Patient Medication Summary Completed 12/13/2017 Visit Plan: Diverticulitis - rx for antibiotic sent to pt's pharmacy - pt advised to avoid seeds, nuts, popcorn, or any other food which has been proven to upset the pt's stomach. 11/29/2017 Appointment: Kandi Cabrera WPtel: [phone] [facility] (15 min) Moderate 11/29/2017 Patient Education: Patient Medication Summary Completed 11/29/2017 Appointment: Kandi Cabrera WPtel: [phone] [facility] (15 min) Moderate 11/24/2017 Visit Plan: [...] 10 days 10/27/2017 Appointment: Kandi Cabrera WPtel: [phone] [facility] [place] (15 min) Moderate 10/27/2017 Patient [...] not improving. 07/26/2017 [phone] (30 min) Complex 07/26/2017 Patient Education: Patient Medication Summary Completed 07/26/2017 Care Plan: Iron Pending 07/26/2017 Care Plan: Referral Order SNOMED-CT : 581260603 Pending 07/26/2017 Visit Plan: Hypertension - well [...] exercises recommended. 05/26/2017 Appointment: [phone] (15 min) Moderate 05/26/2017 Patient Education: Patient Medication Summary Completed 05/26/2017 Patient Education: Patient Medication Summary Completed 05/19/2017 Care Plan: Iron Pending 05/19/2017 Visit Plan: Dyspnea on Exertion - uncontrolled - I have recommended pt to have Pulmonary function studies as well as a referral back to her Packing Attendant - Dr. Hanna - I suspect [...] cigarettes". 04/11/2017 Appointment: Kandi Cabrera WPtel: [phone] [facility] (15 min) Moderate 04/11/2017 Patient Education: Patient Medication Summary Completed 04/11/2017 Patient Education: Smoking and Tobacco Addiction Completed 04/11/2017 Care Plan: Referral Order SNOMED-CT : [id number] Pending 04/11/2017 Appointment: Kandi Cabrera WPtel: [phone] [facility] (15 min) Moderate 02/14/2017 Appointment: Injection 02/09/2017 Referral: [facility] W[facility]: [phone] [facility] Patient informed. Completed 02/09/2017 Patient Education: Patient Medication Summary Completed 02/09/2017 Patient Education: Smoking and Tobacco Addiction Completed 02/09/2017 Visit Plan: Tobacco abuse - chronic condition for this patient. Patient has been counseled about need to stop smoking due to the negative health affects. Pt has vocalized understanding and states that they will con contract administrator smoking cessation, but the pt is not yet ready to use medication to assist cessation. Rx for wellbutrin 75mg 1/2 pill bid. Gait instability - referral to [facility] for gait instability 02/07/2017 Appointment: Kandi Cabrera WPtel: [phone] [facility] (15 min) Moderate 02/07/2017 Patient Education: Patient Medication Summary Completed 02/07/2017 Patient Education: Smoking and Tobacco Addiction Completed 02/07/2017 Care Plan: Referral Order SNOMED-CT : 523533199 Pending 02/07/2017 Visit Plan: Cough - pt [...] becoming uncontrolled. 01/26/2017 Appointment: Kandi Cabrera WPtel: [address] [place], [place] [address] (15 min) Moderate 01/26/2017 Patient Education: Patient [...] week. 10/19/2016 App[facility]ment[phone] (15 min) Moderate 10/19/2016 Patient Education: Patient Medication Summary Completed 10/19/2016 Patient Education: Smoking and Tobacco Addiction Completed 10/19/2016 Patient Education: Hypertension Completed 10/19/2016 Visit Plan: Atrial Fibrillation - pt on chronic anticoagulation and is not optimally rate controlled. Pt is to see her handhole machine operator tomorrow, will discuss with him her plans [...] of control. 09/22/2016 Appointment: [phone] (15 min) Moderate 09/22/2016 Patient Education: [...] q 3 months or q 6 m [facility] based on previous levels of control. 08/31/2016 Appointment: Kandi Cabrera: [phone] [facility] (15 min) Moderate 08/31/2016 Patient Education: Patient Medication Summary Completed 08/31/2016 Patient Education: Smoking and Tobacco Addiction Completed 08/31/2016 Patient Education: Hypertension Completed 08/31/2016 Visit Plan: Sacroiliitis -kenalog injection today in the office- tylenol as directed-heat as directed-xray lumbar spine. Pt is to call if the symptoms do not improve or if they worsen. 08/12/2016 Appointment: Janeen Marsh WPtel: [phone] [phone] (30 min) Complex 08/12/2016 Patient Education: Patient Medication Summary Completed 08/12/2016 Patient Education: Smoking and Tobacco Addiction Completed 08/12/2016 Appointment: Payton Leon WPtel: [phone] [facility] [facility] - Annual Wellness [...] medications. 07/28/2016 Appointment: [phone] (15 min) Moderate 07/28/2016 Patient Education: [...] left ankle- rx for keflex sent to [facility] today 01/28/2016 Visit Plan: Hypertension - well [...] left ankle- rx for keflex sent to [facility] today 01/28/2016 Appointment: [facility]andi [phone] (15 min) Moderate 01/28/2016 Patient Education: Patient [...] activity 07/29/2015 Appointment: Kandi Cabrera WPtel: [phone] [facility] (15 min) Moderate 07/29/2015 Patient Education: Patient [...] of control. A ctinic keratosis - left methodist and left nasal bridge - pt to use efudex on the lesions on the nose and face. 03/31/2015 Appointment: Kandi Cab[facility]el[phone] (15 min) Moderate 03/31/2015 Patient Education: Patient [...] levels. 12/23/2014 Appointment: Kandi Cabrera WPtel: [phone] [facility] [place] ([place]) New Patient 12/23/2014 Patient Education: Patient Medication Summary Completed 12/23/2014 Patient Education: Hypertension Completed 12/23/2014 Care Plan: Referral Order SNOMED-CT : [id number] Ordered 12/23/2014 Referral: External, Ordering Provider Referral Completed Referral: External, Ordering Provider Referral Appointment Requested Referral: Maggi Reaves Referral Initiated Referral: [facility] W[facility]el: [phone] [facility] Referral Appointment Requested Referral: External, Ordering Provider [...] well as a referral back to her Packing Attendant - Dr. Hanna - I suspect [...] - referral to [facility] for gait instability . Hypertension - well [...] rate controlled. Pt is to see her handhole machine operator tomorrow, will discuss with him her plans [...] a conversation about surgical intervention with her Packing Attendant. . Hypertension - well controlled - continue [...] and is ready to discuss valve replacement. start on the synthroid 137mcg daily - [...] have DEXA scan, check vitamin D levels. hold the tricor for the next week [...] on Hydroxyzine. Insomnia - start on hydroxyzine. xray lumbar spine tylenol 2 tabs three times daily lumbar support pillow call tuesday if not better . Sacroiliitis -kenalog injection today in the office-tylenol as directed-heat as directed-xray lumbar spine. Pt is to call if the symptoms do not improve or if they worsen. PROBIOTIC - [employer], [employer], lactobacilus/acidophilis brand probiotic - these can be [...] cessation Overweight - need to increase activity . Hypertension - uncontrolled - no modification [...] months based on previous levels of control. take 1/2 of an venu or zyrtec [...] levels of control. Actinic keratosis - left methodist and left nasal bridge - pt to [...]
--- OUTSIDE RECORDS SUMMARY | 2018-12-29 13:23 | XMS REPORT | CCD ---
Author Author Kandi Cabrera Organization Kandi Cabrera MD, [facility] Address [address] [place] [address] Phone Care Team Providers [facility] Coordinator Name Role Phone PP Unavailable CCM Unavailable Summary Purpose Interface Exchange Insurance Providers Payer name Policy type / Coverage type Covered green party ID Effective Begin Date Effective End Date [facility] Commercial Insurance [id number] Unknown [employer] Medicare Part B Commercial Insurance [id number] 2017 Unknown Family history Father Diagnosis Age [...] Unknown Retired 12/23/[address]: 85564824 Current every day smoker 12/23/2014 Number of years using tobacco Unknown > 50 trying to quit 12/23/2014 Number of cigarettes/day Unknown 10 (Half a pack) 12/23/[address]: 915466792 Never drinks alcohol 12/23/2014 Allergies, Adverse Reactions, Alerts Substance Reaction Codes Entered Date Inactivated Date Status ciprofloxacin RxNorm: 07281 05/05/2018 No Inactive Date Active SULFA(SULFONAMIDE ANTIBIOTICS) Unknown 05/05/2018 No Inactive Date Active Past Medical History Illness Codes Condition Status Onset Date Resolved Date Cough ICD-9: 786.2 ICD-10: R05 Active 01/26/2017 Unknown Essential (primary) hypertension ICD-9: 401.9 ICD-10: I10 Active 12/22/2014 Unknown Other iron deficiency anemias ICD-9: 280.1 ICD-10: D50.8 Active 05/26/2017 Unknown 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 Active 08/31/2016 Unknown Pain in right hip ICD-9: 719.45 [...] Problems Condition Codes Effective Dates Condition Status Cough ICD-9: 786.2 ICD-10: R05 01/26/2017 Active Essential (primary) hypertension ICD-9: 401.9 ICD-10: I10 12/22/2014 Active Other iron deficiency anemias ICD-9: 280.1 ICD-10: D50.8 05/26/2017 Active 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 08/31/2016 Active Pain in right hip ICD-9: 719.45 [...] Fill Instructions sucralfate 1 gram tablet RxNorm: 978947 1 Tablet(s) PO TID 09/11/2018 09/05/2019 Active sucralfate 1 gram tablet RxNorm: 210705 1 Tablet(s) PO TID 09/11/2018 09/10/2018 Inactive diltiazem ER 120 mg capsule,24 hr,extended release RxNorm: 417767 1 Capsule(s) PO daily 08/29/2018 08/23/2019 Active perphenazine-amitriptyline 2 mg-10 mg tablet RxNorm: 351931 2 Tablet(s) PO daily 08/15/2018 11/07/2019 Active PA approved: [id number] 05-17-18-08-15-2019 perphenazine-amitriptyline 2 mg-10 mg tablet RxNorm: 523215 2 Tablet(s) PO daily 08/15/2018 08/14/2018 Inactive PA approved: need 7 days while waiting on mail order perphenazine-amitriptyline 2 mg-10 mg tablet RxNorm: 252287 2 Tablet(s) PO daily 08/04/2018 08/03/2018 Inactive waiting on mail order perphenazine-amitriptyline 2 mg-10 mg tablet RxNorm: 691478 2 Tablet(s) PO daily 08/04/2018 08/03/2018 Inactive perphenazine-amitriptyline 2 mg-10 mg tablet RxNorm: 857567 2 Tablet(s) PO daily 08/04/2018 08/14/2018 Inactive Tricor 145 mg tablet RxNorm: 424451 1 Tablet(s) PO daily 07/17/2018 10/09/2019 Active pantoprazole 40 mg tablet,delayed release RxNorm: 824215 1 Tablet(s) PO daily 07/17/2018 10/09/2019 Active hydroxyzine HCl 25 mg tablet RxNorm: 326792 2 Tablet(s) PO QHS may increase to two pills at hs if allergic reactions are occuring 07/17/2018 11/13/2018 Inactive Synthroid 100 mcg tablet RxNorm: 798434 1 Tablet(s) PO daily 06/05/2018 08/28/2019 Active hydroxyzine HCl 25 mg tablet RxNorm: 785271 1 Tablet(s) PO QHS may increase to two pills at hs if allergic reactions are occuring 06/05/2018 07/16/2018 Inactive Lasix 20 mg tablet RxNorm: 391067 1 Tablet(s) PO daily as needed not more than one time a day 05/19/2018 09/15/2018 Inactive prednisone 20 mg tablet RxNorm: 634092 2 Tablet(s) PO daily 02/22/2018 02/26/2018 Inactive Cipro 500 mg tablet RxNorm: 711153 1 Tablet(s) PO BID 02/22/2018 02/28/2018 Inactive potassium chloride ER 10 mEq tablet,extended release RxNorm: 391355 1 Tablet(s) PO UD take on days that you take a lasix pill 02/13/2018 02/07/2019 Active Synthroid 100 mcg tablet RxNorm: 559965 1 Tablet(s) PO daily 02/13/2018 06/04/2018 Inactive simvastatin 20 mg tablet RxNorm: 338953 1 Tablet(s) PO QHS 01/13/2018 01/07/2019 Active metronidazole 500 mg tablet RxNorm: 322153 1 Tablet(s) PO TID 11/29/2017 12/08/2017 Inactive alendronate 70 mg tablet RxNorm: 858192 1 Tablet(s) PO weekly 11/29/2017 03/05/2018 Inactive omeprazole 40 mg capsule,delayed release RxNorm: 742926 1 Capsule(s) PO daily 11/11/2017 07/16/2018 Inactive Flagyl 500 mg tablet RxNorm: 107127 1 Tablet(s) PO TID 10/27/2017 11/05/2017 Inactive fluticasone 50 mcg/actuation nasal spray,suspension RxNorm: 0461704 1 [facility] NASAL daily 07/26/2017 No Stop Date Active sucralfate 1 gram tablet RxNorm: 715657 1 Tablet(s) PO TID 07/26/2017 07/20/2018 Inactive Protonix 40 mg tablet,delayed release RxNorm: 556932 1 Tablet(s) PO daily 07/26/2017 10/23/2017 Inactive Tricor 145 mg tablet RxNorm: 005782 1 Tablet(s) PO daily 05/26/2017 05/20/2018 Inactive perphenazine-amitriptyline 2 mg-10 mg tablet RxNorm: 203269 2 Tablet(s) PO daily 05/26/2017 05/20/2018 Inactive bupropion HCl 75 mg tablet RxNorm: 812697 1/2 Tablet(s) PO BID 02/07/2017 05/07/2017 Inactive Eliquis 5 mg tablet RxNorm: 7830885 1 Tablet(s) PO BID 01/26/2017 01/20/2018 Inactive sotalol 80 mg tablet RxNorm: 4316926 1 Tablet(s) PO BID 01/26/2017 04/20/2018 Inactive potassium chloride ER 10 mEq tablet,extended release RxNorm: 475634 1 Tablet(s) PO UD take on days that you take a lasix pill 01/26/2017 01/20/2018 Inactive Synthroid 100 mcg tablet RxNorm: 309894 1 Tablet(s) PO daily 01/26/2017 02/12/2018 Inactive diltiazem ER 240 mg capsule,extended release RxNorm: 172256 1 Capsule(s) PO BID 01/26/2017 05/03/2017 Inactive Lasix 20 mg tablet RxNorm: 1 Tablet(s) PO daily as needed not more than one time a day 01/26/2017 05/25/2017 Inactive simvastatin 20 mg tablet RxNorm: 200594 1 Tablet(s) PO QHS 12/21/2016 12/15/2017 Inactive alendronate 70 mg tablet RxNorm: 193456 1 Tablet(s) PO weekly 12/21/2016 11/28/2017 Inactive omeprazole 40 mg capsule,delayed release RxNorm: 429338 1 Capsule(s) PO daily 10/19/2016 10/12/2017 Inactive metoprolol succinate ER 100 mg tablet,extended release 24 hr RxNorm: 961537 1.5 Tablet(s) PO daily 09/17/2016 10/18/2016 Inactive Dosage increased by Dr. Vazquze potassium chloride ER 10 mEq tablet,extended release RxNorm: 883962 1 Tablet(s) PO UD take on days that you take a lasix pill 08/31/2016 12/28/2016 Inactive Lasix 20 mg tablet RxNorm: 1 Tablet(s) PO daily as needed not more than one time a day 08/31/2016 12/28/2016 Inactive Kenalog 40 mg/mL suspension for injection RxNorm: 4092799 1 Milliliter(s) Inj 08/12/2016 08/12/2016 Inactive Tricor 145 mg tablet RxNorm: 869004 1 Tablet(s) PO daily 05/21/2016 05/15/2017 Inactive atenolol 25 mg tablet RxNorm: 290961 1 Tablet(s) PO daily 05/21/2016 08/30/2016 Inactive sucralfate 1 gram tablet RxNorm: 947795 1 Tablet(s) PO TID 05/21/2016 05/15/2017 Inactive enalapril maleate 10 mg tablet RxNorm: 292844 1 Tablet(s) PO daily 04/26/2016 08/30/2016 Inactive perphenazine-amitriptyline 2 mg-10 mg tablet RxNorm: 720474 2 Tablet(s) PO daily 04/26/2016 04/20/2017 Inactive fluticasone 50 mcg/actuation nasal spray,suspension RxNorm: 6663806 1 [facility] NASAL daily 04/26/2016 07/25/2017 Inactive Synthroid 100 mcg tablet RxNorm: 963877 1 Tablet(s) PO daily 02/09/2016 01/25/2017 Inactive Synthroid 100 mcg tablet RxNorm: 920818 1 Tablet(s) PO daily 02/09/2016 02/08/2016 Inactive Keflex 500 mg capsule RxNorm: 342061 1 Capsule(s) PO TID 01/28/2016 02/01/2016 Inactive hydrochlorothiazide 25 mg tablet RxNorm: 799693 TAKE 1 TABLET DAILY 01/07/2016 08/30/2016 Inactive enalapril maleate 10 mg tablet RxNorm: 887873 1 Tablet(s) PO daily 12/26/2015 04/25/2016 Inactive hydrochlorothiazide 25 mg tablet RxNorm: 016011 1 Tablet(s) PO daily 12/08/2015 08/30/2016 Inactive omeprazole 40 mg capsule,delayed release RxNorm: 768153 1 Capsule(s) PO daily 12/08/2015 10/18/2016 Inactive simvastatin 20 mg tablet RxNorm: 651411 1 Tablet(s) PO QHS 11/14/2015 11/07/2016 Inactive alendronate 70 mg tablet RxNorm: 025141 1 Tablet(s) PO weekly 10/31/2015 10/24/2016 Inactive Synthroid 112 mcg tablet RxNorm: 694835 1 Tablet(s) PO daily 07/16/2015 02/08/2016 Inactive sucralfate 1 gram tablet RxNorm: 225140 1 Tablet(s) PO TID 06/17/2015 05/20/2016 Inactive perphenazine-amitriptyline 2 mg-10 mg tablet RxNorm: 067021 2 Tablet(s) PO daily 06/17/2015 04/25/2016 Inactive fluticasone 50 mcg/actuation nasal spray,suspension RxNorm: 8571240 1 [facility] NASAL daily 06/17/2015 04/25/2016 Inactive fluorouracil 5 % topical cream RxNorm: 572641 APPLY 1 APPLICATION TOPICALLY TWO TIMES A DAY 06/16/2015 06/25/2015 Inactive fluticasone 50 mcg/actuation nasal spray,suspension RxNorm: 871940 1 [facility] NASAL daily 06/12/2015 06/16/2015 Inactive atenolol 25 mg tablet RxNorm: 570595 1 Tablet(s) PO daily 05/14/2015 05/07/2016 Inactive Tricor 145 mg tablet RxNorm: 064429 1 Tablet(s) PO daily 04/23/2015 04/16/2016 Inactive Synthroid 125 mcg tablet RxNorm: 735517 1 Tablet(s) PO daily 03/31/2015 07/15/2015 Inactive fluorouracil 5 % topical cream RxNorm: 053879 1 Application TOP BID 03/31/2015 04/09/2015 Inactive Synthroid 137 mcg tablet RxNorm: 495499 1 Tablet(s) PO daily 12/25/2014 12/24/2014 Inactive Synthroid 137 mcg tablet RxNorm: 044849 1 Tablet(s) PO daily 12/25/2014 03/30/2015 Inactive Voltaren 1 % topical gel RxNorm: 920460 4 Gram(s) TOP QID 12/23/2014 04/21/2015 Inactive alendronate 70 mg tablet RxNorm: 307860 1 Tablet(s) PO weekly 12/23/2014 12/22/2014 Inactive alendronate 70 mg tablet RxNorm: 624494 1 Tablet(s) PO weekly 12/23/2014 10/30/2015 Inactive Fosamax 70 mg tablet RxNorm: 726497 1 Tablet(s) PO weekly QW 12/23/2014 01/27/2016 Inactive omeprazole 40 mg capsule,delayed release RxNorm: 480319 1 Capsule(s) PO daily 12/18/2014 12/07/2015 Inactive omeprazole 40 mg capsule,delayed release RxNorm: 309395 1 Capsule(s) PO daily 12/18/2014 12/17/2014 Inactive hydrochlorothiazide 25 mg tablet RxNorm: 543005 1 Tablet(s) PO daily 12/18/2014 12/17/2014 Inactive hydrochlorothiazide 25 mg tablet RxNorm: 550004 1 Tablet(s) PO daily 12/18/2014 12/07/2015 Inactive L-Lysine 1,000 mg tablet RxNorm: 623914 1 Tablet(s) PO daily No Start Date Active folic acid 400 mcg tablet RxNorm: 346398 1 Tablet(s) PO daily No Start Date Active B12 1000 mcg RxNorm: 1/2 Tablet(s) PO daily No Start Date Active Vitamin D3 1,000 unit chewable tablet RxNorm: 932702 1 Tablet(s) PO daily No Start Date Active metoprolol succinate ER 100 mg tablet,extended release 24 hr RxNorm: 561219 1 Tablet(s) PO daily No Start Date 09/16/2016 Inactive enalapril maleate 10 mg tablet RxNorm: 196116 1 Tablet(s) PO daily No Start Date 12/25/2015 Inactive perphenazine-amitriptyline 2 mg-10 mg tablet RxNorm: 163412 2 Tablet(s) PO daily No Start Date 06/16/2015 Inactive sucralfate 1 gram tablet RxNorm: 719734 1 Tablet(s) PO TID No Start Date 06/16/2015 Inactive hydrochlorothiazide 25 mg tablet RxNorm: 194676 1 Tablet(s) PO daily No Start Date 08/30/2016 Inactive vitamin E (dl, acetate) 400 unit capsule RxNorm: 153900 1 Capsule(s) PO daily No Start Date 03/05/2018 Inactive sotalol 80 mg tablet RxNorm: 7563266 1 Tablet(s) PO BID No Start Date 01/25/2017 Inactive Synthroid 150 mcg tablet RxNorm: 113033 1 Tablet(s) PO daily No Start Date 12/24/2014 Inactive diltiazem ER 120 mg capsule,24 hr,extended release RxNorm: 052933 1 Capsule(s) PO daily No Start Date 08/28/2018 Inactive simvastatin 20 mg tablet RxNorm: 694288 1 Tablet(s) PO daily No Start Date 11/13/2015 Inactive Vitamin C RxNorm: PO 1000mg qd No Start Date 03/05/2018 Inactive Fosamax 70 mg tablet RxNorm: 447853 1 Tablet(s) PO weekly No Start Date 12/22/2014 Inactive Tricor 145 mg tablet RxNorm: 260398 1 Tablet(s) PO daily No Start Date 04/22/2015 Inactive diltiazem ER 180 mg capsule,24 hr,extended release RxNorm: 844589 1 Capsule(s) PO daily No Start Date 03/05/2018 Inactive diltiazem 120 mg tablet RxNorm: 502985 1 Tablet(s) PO daily No Start Date 08/29/2018 Inactive diltiazem ER 240 mg capsule,extended release RxNorm: 300174 1 Capsule(s) PO BID No Start Date 01/25/2017 Inactive Eliquis 5 mg tablet RxNorm: 3270110 1 Tablet(s) PO BID No Start Date 01/25/2017 Inactive fluticasone 50 mcg/actuation nasal spray,suspension RxNorm: 953942 1 [facility] NASAL daily No Start Date 06/11/2015 Inactive atenolol 25 mg tablet RxNorm: 452918 1 Tablet(s) PO daily No Start Date 05/13/2015 Inactive Medication Administered Medication Codes Instructions Start Date Status Kenalog 40 mg/mL suspension for injection RxNorm: 4894984 1Milliliter 08/12/2016 No longer Active Immunizations Vaccine Codes Date Status Influenza CVX: 141 03/21/2018 completed Influenza CVX: 141 02/09/2017 completed Pneumococcal (Adult) CVX: 133 02/09/2017 completed Influenza CVX: 141 01/28/2016 completed Zoster CVX: 121 07/22/2011 completed Pneumococcal CVX: 33 11/20/2008 completed Assessments Condition Codes Effective Dates Essential (primary) hypertension ICD-10: I10 ICD-9: 401.9 11/20/2018 Other iron deficiency anemias ICD-10: D50.8 ICD-9: 280.1 11/20/2018 Cough ICD-10: R05 ICD-9: 786.2 11/20/2018 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 ICD-9: 244.8 08/21/2018 Pain in right hip ICD-10: M25.551 ICD-9: [...] Reason For Visit Effective Dates Notes hypertension 11/20/2018 hypertension 08/21/2018 hypertension 07/17/2018 hypertension [...] 31.6 pg 11/20/2018 Cbc With Differential Ord2 [place]% 8.6 % 11/20/2018 Cbc With Differential Ord2 MCHC 33.9 pg 11/20/2018 Cbc With Differential Ord2 Eos% 2.9 % 11/20/2018 Cbc With Differential Ord2 PLT 338 K/ul 11/20/2018 Cbc With Differential Ord2 Baso% 0.4 % 11/20/2018 Cbc With Differential Ord2 RDW 16.8 % 11/20/2018 Cbc With Differential Ord2 Neut ABS# 5.14 K/ul 11/20/2018 Cbc With Differential Ord2 Lymph ABS# 1.19 K/ul 11/20/2018 Cbc With Differential Ord2 [place] ABS# 0.6 K/ul 11/20/2018 Cbc With Differential [...] 85.7 fl 09/20/2018 Cbc With Differential Ord2 [place]% 14.1 % 09/20/2018 Cbc With Differential Ord2 [...] 1.27 K/ul 09/20/2018 Cbc With Differential Ord2 [place] ABS# 0.7 K/ul 09/20/2018 Cbc With Differential Ord2 Eos ABS# 0.1 K/ul 09/20/2018 Cbc With Differential Ord2 Baso ABS# 0.0 K/ul 09/20/2018 Tsh Ord6 TSH (3rd IS) 0.97 uIU/mL 08/14/2018 Tibc Ord40 Iron 90 ug/dl 08/14/2018 Tibc Ord40 UIBC 380 ug/dL 08/14/2018 Tibc Ord40 TIBC 470 ug/dL 08/14/2018 Tibc Ord40 Fe-%Sat 19.1 % 08/14/2018 Comp Metabolic Xoq349 NA 136 mEq/L 08/14/2018 Comp Metabolic Nxc662 K 4.3 mEq/L 08/14/2018 Comp Metabolic Oyh640 CL 100 mEq/L 08/14/2018 Comp Metabolic Kma819 CO2 28.0 mEq/L 08/14/2018 Comp Metabolic Xgq347 ANION GAP 12 08/14/2018 Comp Metabolic Dqo457 GLUCOSE 111 mg/dL 08/14/2018 Comp Metabolic Rpk398 Creat 0.9 mg/dL 08/14/2018 Comp Metabolic Jmu679 eGFR 66 ml/min/1.73m2 08/14/2018 Comp Metabolic Hxo047 BUN 22 mg/dL 08/14/2018 Comp Metabolic Fhk309 B/C Ratio 25.3 Ratio 08/14/2018 Comp Metabolic Xke921 CALCIUM 10.1 mg/dL 08/14/2018 Comp Metabolic Xpw828 ALK PHOS 45 U/L 08/14/2018 Comp Metabolic Qya298 AST(SGOT) 16 U/L 08/14/2018 Comp Metabolic Khy913 ALT(SGPT) 7 U/L 08/14/2018 Comp Metabolic Ibo974 BILI T 0.4 mg/dL 08/14/2018 Comp Metabolic Gqe986 ALBUMIN 4.0 g/dL 08/14/2018 Comp Metabolic Thm859 TPRO 7.0 g/dL 08/14/2018 Comp Metabolic Agg917 GLOB 3.0 g/dL 08/14/2018 Comp Metabolic Zub502 A/G Ratio 1.3 Ratio 08/14/2018 Comp Metabolic Que522 Osmo 276 mOsmo 08/14/2018 Cbc With Differential [...] 26.2 pg 08/14/2018 Cbc With Differential Ord2 [place]% 9.1 % 08/14/2018 Cbc With Differential Ord2 Eos% 1.8 % 08/14/2018 Cbc With Differential Ord2 MCHC 31.0 pg 08/14/2018 Cbc With Differential Ord2 PLT 293 K/ul 08/14/2018 Cbc With Differential Ord2 Baso% 0.5 % 08/14/2018 Cbc With Differential Ord2 Neut ABS# 4.34 K/ul 08/14/2018 Cbc With Differential Ord2 Lymph ABS# 0.93 K/ul 08/14/2018 Cbc With Differential Ord2 [place] ABS# 0.5 K/ul 08/14/2018 Cbc With Differential Ord2 Eos ABS# 0.1 K/ul 08/14/2018 Cbc With Differential Ord2 Baso ABS# 0.0 K/ul 08/14/2018 Free T4 Kex600 FREE T4 1.00 ng/dL 08/14/2018 Tibc Ord40 [...] 24.9 pg 06/21/2018 Cbc With Differential Ord2 [place]% 15.0 % 06/21/2018 Cbc With Differential Ord2 [...] 1.35 K/ul 06/21/2018 Cbc With Differential Ord2 [place] ABS# 0.9 K/ul 06/21/2018 Cbc With Differential [...] 24.9 pg 06/01/2018 Cbc With Differential Ord2 [place]% 12.8 % 06/01/2018 Cbc With Differential Ord2 [...] 0.81 K/ul 06/01/2018 Cbc With Differential Ord2 [place] ABS# 0.7 K/ul 06/01/2018 Cbc With Differential [...] 29.9 pg 03/17/2018 Cbc With Differential Ord2 [place]% 13.3 % 03/17/2018 Cbc With Differential Ord2 [...] 0.90 K/ul 03/17/2018 Cbc With Differential Ord2 [place] ABS# 0.8 K/ul 03/17/2018 Cbc With Differential [...] 30.2 pg 02/22/2018 Cbc With Differential Ord2 [place]% 11.5 % 02/22/2018 Cbc With Differential Ord2 [...] 0.86 K/ul 02/22/2018 Cbc With Differential Ord2 [place] ABS# 0.7 K/ul 02/22/2018 Cbc With Differential Ord2 Eos ABS# 0.2 K/ul 02/22/2018 Cbc With Differential Ord2 Baso ABS# 0.1 K/ul 02/22/2018 Tsh Ord6 TSH (3rd IS) 0.66 uIU/mL 02/22/2018 Free T4 Zyv130 FREE T4 1.22 ng/dL 02/22/2018 Comp Metabolic Umb066 NA 136 mEq/L 02/22/2018 Comp Metabolic Qit023 K 4.4 mEq/L 02/22/2018 Comp Metabolic Isx744 CL 102 mEq/L 02/22/2018 Comp Metabolic Miv668 CO2 23.0 mEq/L 02/22/2018 Comp Metabolic Fcf215 ANION GAP 15 02/22/2018 Comp Metabolic Ose855 GLUCOSE 94 mg/dL 02/22/2018 Comp Metabolic Kdr402 Creat 1.2 mg/dL 02/22/2018 Comp Metabolic Set164 eGFR 46 ml/min/1.73m2 02/22/2018 Comp Metabolic Oay728 BUN 31 mg/dL 02/22/2018 Comp Metabolic Tvi175 B/C Ratio 25.8 Ratio 02/22/2018 Comp Metabolic Qgk964 CALCIUM 9.2 mg/dL 02/22/2018 Comp Metabolic Tad248 ALK PHOS 34 U/L 02/22/2018 Comp Metabolic Dta799 AST(SGOT) 18 U/L 02/22/2018 Comp Metabolic Ter494 ALT(SGPT) 8 U/L 02/22/2018 Comp Metabolic Oml321 BILI T 0.4 mg/dL 02/22/2018 Comp Metabolic Xmb326 ALBUMIN 3.6 g/dL 02/22/2018 Comp Metabolic Owz366 TPRO 6.2 g/dL 02/22/2018 Comp Metabolic Tqx201 GLOB 2.6 g/dL 02/22/2018 Comp Metabolic Xko455 A/G Ratio 1.4 Ratio 02/22/2018 Comp Metabolic Mcv438 Osmo 278 mOsmo 02/22/2018 Free T4 Llz879 FREE T4 1.11 ng/dL 10/27/2017 Lipid Ord30 [...] 30.7 pg 10/27/2017 Cbc With Differential Ord2 [place]% 11.3 % 10/27/2017 Cbc With Differential Ord2 [...] 1.16 K/ul 10/27/2017 Cbc With Differential Ord2 [place] ABS# 0.6 K/ul 10/27/2017 Cbc With Differential Ord2 Eos ABS# 0.2 K/ul 10/27/2017 Cbc With Differential Ord2 Baso ABS# 0.0 K/ul 10/27/2017 Comp Metabolic Nbx607 NA 135 mEq/L 10/27/2017 Comp Metabolic Bje323 K 4.7 mEq/L 10/27/2017 Comp Metabolic Lpe458 CL 101 mEq/L 10/27/2017 Comp Metabolic Otq800 CO2 23.0 mEq/L 10/27/2017 Comp Metabolic Njs973 ANION GAP 16 10/27/2017 Comp Metabolic Owq144 GLUCOSE 84 mg/dL 10/27/2017 Comp Metabolic Rvd934 Creat 1.2 mg/dL 10/27/2017 Comp Metabolic Jgo268 eGFR 46 ml/min/1.73m2 10/27/2017 Comp Metabolic Gcn102 BUN 30 mg/dL 10/27/2017 Comp Metabolic Cje926 B/C Ratio 25.2 Ratio 10/27/2017 Comp Metabolic Rfu610 CALCIUM 9.4 mg/dL 10/27/2017 Comp Metabolic Ypf444 ALK PHOS 30 U/L 10/27/2017 Comp Metabolic Bwo595 AST(SGOT) 25 U/L 10/27/2017 Comp Metabolic Igr805 ALT(SGPT) 12 U/L 10/27/2017 Comp Metabolic Utm582 BILI T 0.5 mg/dL 10/27/2017 Comp Metabolic Aja952 ALBUMIN 3.7 g/dL 10/27/2017 Comp Metabolic Tud489 TPRO 6.5 g/dL 10/27/2017 Comp Metabolic Ggf260 GLOB 2.8 g/dL 10/27/2017 Comp Metabolic Nkn239 A/G Ratio 1.3 Ratio 10/27/2017 Comp Metabolic Wyy639 Osmo 275 mOsmo 10/27/2017 Hgb & Hct Ord65 HGB 12.2 g/dl 07/29/2017 Hgb & Hct Ord65 HCT 38.8 % 07/29/2017 Tibc Ord40 Iron 79 ug/dl 07/26/2017 Tibc Ord40 UIBC 380 ug/dL 07/26/2017 Tibc Ord40 TIBC 459 ug/dL 07/26/2017 Tibc Ord40 Fe-%Sat 17.2 % 07/26/2017 Tsh Ord6 TSH (3rd IS) 0.46 uIU/mL 07/26/2017 Ferritin Ord22 FERRITIN 83.6 ng/mL 07/26/2017 Free T4 Qgi152 FREE T4 1.00 ng/dL 07/26/2017 Tibc Ord40 [...] 31.0 pg 08/02/2016 Cbc With Differential Ord2 [place]% 9.4 % 08/02/2016 Cbc With Differential Ord2 [...] 1.44 K/ul 08/02/2016 Cbc With Differential Ord2 [place] ABS# 0.7 K/ul 08/02/2016 Cbc With Differential Ord2 Eos ABS# 0.3 K/ul 08/02/2016 Cbc With Differential Ord2 Baso ABS# 0.1 K/ul 08/02/2016 Lipid Ord30 CHOL 142 mg/dL 08/02/2016 Lipid Ord30 HDL 40.0 mg/dl 08/02/2016 Lipid Ord30 TRIG 169 mg/dL 08/02/2016 Lipid Ord30 LDL 68 mg/dL 08/02/2016 Lipid Ord30 C/HDL 3.6 Ratio 08/02/2016 Comp Metabolic Unq520 NA 139 mEq/L 08/02/2016 Comp Metabolic Hnq068 K 5.2 mEq/L 08/02/2016 Comp Metabolic Xbz563 CL 108 mEq/L 08/02/2016 Comp Metabolic Pfg941 CO2 22.0 mEq/L 08/02/2016 Comp Metabolic Qhk167 ANION GAP 14 08/02/2016 Comp Metabolic Ghm344 GLUCOSE 103 mg/dL 08/02/2016 Comp Metabolic Zaq989 Creat 1.1 mg/dL 08/02/2016 Comp Metabolic Ylt606 eGFR 54 ml/min/1.73m2 08/02/2016 Comp Metabolic Vhs854 BUN 26 mg/dL 08/02/2016 Comp Metabolic Zhd902 B/C Ratio 24.8 Ratio 08/02/2016 Comp Metabolic Rrs928 CALCIUM 9.4 mg/dL 08/02/2016 Comp Metabolic Nik741 ALK PHOS 41 U/L 08/02/2016 Comp Metabolic Ird713 AST(SGOT) 18 U/L 08/02/2016 Comp Metabolic Bdb461 ALT(SGPT) 10 U/L 08/02/2016 Comp Metabolic Ope869 BILI T 0.3 mg/dL 08/02/2016 Comp Metabolic Yqr394 ALBUMIN 3.7 g/dL 08/02/2016 Comp Metabolic Yjt790 TPRO 6.5 g/dL 08/02/2016 Comp Metabolic Pxz078 GLOB 2.8 g/dL 08/02/2016 Comp Metabolic Zwd261 A/G Ratio 1.3 Ratio 08/02/2016 Comp Metabolic Ihb370 Osmo 283 mOsmo 08/02/2016 Free T4 Jde579 FREE T4 1.08 ng/dL 08/02/2016 Tsh Ord6 hTSH II 0.35 uIU/mL 05/13/2016 Free T4 Ohl581 FREE T4 0.78 ng/dL 05/13/2016 Free T4 Lqg933 FREE T4 1.13 ng/dL 01/28/2016 Tsh Ord6 [...] 30.2 pg 07/14/2015 Cbc With Differential Ord2 [place]% 9.1 % 07/14/2015 Cbc With Differential Ord2 [...] 1.80 K/ul 07/14/2015 Cbc With Differential Ord2 [place] ABS# 0.7 K/ul 07/14/2015 Cbc With Differential [...] Ord30 C/HDL 3.0 Ratio 07/14/2015 Comp Metabolic Hna907 NA 136 mEq/L 07/14/2015 Comp Metabolic Fwn878 K 4.4 mEq/L 07/14/2015 Comp Metabolic Amr477 CL 101 mEq/L 07/14/2015 Comp Metabolic Iya636 CO2 27.0 mEq/L 07/14/2015 Comp Metabolic Bvp483 ANION GAP 12 07/14/2015 Comp Metabolic Qni682 GLUCOSE 97 mg/dL 07/14/2015 Comp Metabolic Orj877 Creat 1.0 mg/dL 07/14/2015 Comp Metabolic Pdk183 eGFR 56 ml/min/1.73m2 07/14/2015 Comp Metabolic Ptt775 BUN 27 mg/dL 07/14/2015 Comp Metabolic Wzv877 B/C Ratio 26.7 Ratio 07/14/2015 Comp Metabolic Vvv050 CALCIUM 9.3 mg/dL 07/14/2015 Comp Metabolic Vvx650 ALK PHOS 33 U/L 07/14/2015 Comp Metabolic Eeq624 AST(SGOT) 14 U/L 07/14/2015 Comp Metabolic Sjt999 ALT(SGPT) 8 U/L 07/14/2015 Comp Metabolic Itu396 BILI T 0.4 mg/dL 07/14/2015 Comp Metabolic Qzt827 ALBUMIN 3.8 g/dL 07/14/2015 Comp Metabolic Ecy433 TPRO 6.6 g/dL 07/14/2015 Comp Metabolic Vea469 GLOB 2.8 g/dL 07/14/2015 Comp Metabolic Ozk903 A/G Ratio 1.4 Ratio 07/14/2015 Comp Metabolic Rme688 Osmo 277 mOsmo 07/14/2015 Tsh Ord6 hTSH II 0.23 uIU/mL 07/14/2015 Free T4 Avv526 FREE T4 1.19 ng/dL 07/14/2015 Cbc With [...] Ord30 C/HDL 3.4 Ratio 03/26/2015 Comp Metabolic Ubt034 NA 135 mEq/L 03/26/2015 Comp Metabolic Lky771 K 5.0 mEq/L 03/26/2015 Comp Metabolic Jqn451 CL 99 mEq/L 03/26/2015 Comp Metabolic Cwv244 CO2 27.0 mEq/L 03/26/2015 Comp Metabolic Kaz816 ANION GAP 14 03/26/2015 Comp Metabolic Ynf517 GLUCOSE 88 mg/dL 03/26/2015 Comp Metabolic Oay280 Creat 1.1 mg/dL 03/26/2015 Comp Metabolic Xnb123 eGFR 50 ml/min/1.73m2 03/26/2015 Comp Metabolic Tma053 BUN 27 mg/dL 03/26/2015 Comp Metabolic Nzg027 B/C Ratio 24.1 Ratio 03/26/2015 Comp Metabolic Euj431 CALCIUM 9.9 mg/dL 03/26/2015 Comp Metabolic Fky372 ALK PHOS 30 U/L 03/26/2015 Comp Metabolic Wvu416 AST(SGOT) 16 U/L 03/26/2015 Comp Metabolic Asb919 ALT(SGPT) 8 U/L 03/26/2015 Comp Metabolic Ukg545 BILI T 0.4 mg/dL 03/26/2015 Comp Metabolic Qxt369 ALBUMIN 3.9 g/dL 03/26/2015 Comp Metabolic Unc697 TPRO 6.4 g/dL 03/26/2015 Comp Metabolic Iyo166 GLOB 2.5 g/dL 03/26/2015 Comp Metabolic Coj144 A/G Ratio 1.6 Ratio 03/26/2015 Comp Metabolic Kps350 Osmo 275 mOsmo 03/26/2015 Free T4 Dcf901 FREE T4 1.22 ng/dL 03/26/2015 Tsh Ord6 hTSH II 0.20 uIU/mL 03/26/2015 Vitamin D 25 Oh Hrj7642 VITAMIN D, 25 HYDROXY 51.09 ng/mL 12/25/2014 Tsh Ord6 hTSH II 0.09 uIU/mL 12/23/2014 Free T4 Zls172 FREE T4 1.30 ng/dL 12/23/2014 Comp Metabolic Oqe537 NA 135 mEq/L 12/23/2014 Comp Metabolic Vhp015 K 4.7 mEq/L 12/23/2014 Comp Metabolic Aui896 CL 100 mEq/L 12/23/2014 Comp Metabolic Vbq230 CO2 23.0 mEq/L 12/23/2014 Comp Metabolic Njs677 ANION GAP 17 12/23/2014 Comp Metabolic Xjr931 GLUCOSE 93 mg/dL 12/23/2014 Comp Metabolic Xer169 Creat 1.1 mg/dL 12/23/2014 Comp Metabolic Jxo005 eGFR 53 ml/min/1.73m2 12/23/2014 Comp Metabolic Dgf845 BUN 26 mg/dL 12/23/2014 Comp Metabolic Syd751 B/C Ratio 24.3 Ratio 12/23/2014 Comp Metabolic Nfu907 CALCIUM 9.5 mg/dL 12/23/2014 Comp Metabolic Xqo760 ALK PHOS 27 U/L 12/23/2014 Comp Metabolic Uut721 AST(SGOT) 16 U/L 12/23/2014 Comp Metabolic Orb945 ALT(SGPT) 8 U/L 12/23/2014 Comp Metabolic Tll296 BILI T 0.4 mg/dL 12/23/2014 Comp Metabolic Vqp138 ALBUMIN 3.9 g/dL 12/23/2014 Comp Metabolic Cdc060 TPRO 6.7 g/dL 12/23/2014 Comp Metabolic Nbg812 GLOB 2.8 g/dL 12/23/2014 Comp Metabolic Bau511 A/G Ratio 1.4 Ratio 12/23/2014 Comp Metabolic Ada287 Osmo 275 mOsmo 12/23/2014 Review of Systems System Result Effective Dates Constitutional recent illness 11/20/2018 Constitutional No chills [...] clear 08/21/2018 None Full Exam - General 1995 Respiratory auscultation Overall: breath sounds clear bilaterally [...] sounds 08/21/2018 None Full Exam - General 1995 Musculoskeletal [...] clear 07/17/2018 None Full Exam - General 1995 Ears/Nose/Throat [...] inspection of skin Consistency: thick 03/31/2015 left restoration and left nasal bridge - actinic keratosis [...] SUBSEQ VISIT CPT- 4: G0439 05/05/2018 [facility] INFORMATION [facility]IST 3-[address]: 491290250 CPT-4: G0436 04/11/2017 PNEUMOCOCCAL VACC [address]: 73649282 CPT-4: 32127 02/09/2017 FLU VACC PRSV FREE INC ANTIG CPT-4: 01149 02/09/2017 ADMIN INFLUENZA VIRUS VAC CPT-4: G0008 02/09/2017 ADMIN PNEUMOCOCCAL VACCINE SNOMED CT: 23799756 CPT-4: G0009 02/09/2017 [facility] INFORMATION SPECIALIST 3-[address]: 377013259 CPT-4: G0436 02/07/2017 [facility] INFORMATION SPECIALIST 3-[address]: 121017468 CPT-4: G0436 10/19/2016 [facility] INFORMATION [facility]IST 3-[address]: 069910668 CPT-4: G0436 08/31/2016 TRIAMCINOLONE ACET INJ NOS CPT-4: J3301 08/12/2016 [facility] INFORMATION SPECIALIST 3-[address]: 960955571 CPT-4: G0436 07/28/2016 ADMIN INFLUENZA VIRUS VAC CPT-4: G0008 01/28/2016 FLU VACC 4 JULISA 3 YRS PLUS IM SNOMED CT: 02769517 CPT-4: 30286 01/28/2016 [facility] INFORMATION SPECIALIST 3-[address]: 061173333 CPT-4: G0436 07/29/2015 Vital Signs Date Vital 11/20/2018 Blood Pressure 1: 144/82 Code: 8480-6 BMI: 23.0 Code: 12638-0 Heart Rate 1: 94 bpm Height: 5'4" SpO2: 94% Weight: 134 lbs 08/21/2018 Blood Pressure 1: 144/82 Code: 8480-6 BMI: 23.9 Code: 27833-9 Heart Rate 1: 99 bpm Height: 5'4" SpO2: 95% Weight: 139 lbs 07/17/2018 Blood Pressure 1: 126/54 Code: 8480-6 BMI: 24.4 Code: 26463-2 Heart Rate 1: 70 bpm Height: 5'4" SpO2: 98% Weight: 142 lbs 06/05/2018 Blood Pressure 1: 122/60 Code: 8480-6 BMI: 25.4 Code: 65477-3 Heart Rate 1: 74 bpm Height: 5'4" SpO2: 98% Weight: 148 lbs 05/05/2018 Blood Pressure 1: 130/64 Code: 8480-6 BMI: 25.1 Code: 29933-9 Heart Rate 1: 72 bpm Height: 5'4" SpO2: 97% Weight: 146 lbs 04/03/2018 Blood Pressure 1: 142/80 Code: 8480-6 BMI: 25.2 Code: 23339-8 Heart Rate 1: 99 bpm Height: 5'4" SpO2: 97% Weight: 147 lbs 03/06/2018 Blood Pressure 1: 140/80 Code: 8480-6 BMI: 26.1 Code: 35947-7 Heart Rate 1: 71 bpm Height: 5'4" SpO2: 98% Weight: 152 lbs 02/22/2018 Blood Pressure 1: 146/68 Code: 8480-6 BMI: 26.6 Code: 04231-0 Heart Rate 1: 88 bpm Height: 5'4" SpO2: 97% Weight: 155 lbs 12/13/2017 Blood Pressure 1: 132/68 Code: 8480-6 BMI: 26.6 Code: 23665-5 Heart Rate 1: 72 bpm Height: 5'4" SpO2: 94% Weight: 154 lbs 14 oz 11/29/2017 Blood Pressure 1: 130/64 Code: 8480-6 BMI: 26.1 Code: 84604-4 Heart Rate 1: 81 bpm Height: 5'4" SpO2: 94% Weight: 152 lbs 10/27/2017 Blood Pressure 1: 120/62 Code: 8480-6 BMI: 25.9 Code: 75878-9 Heart Rate 1: 70 bpm Height: 5'4" SpO2: 96% Weight: 151 lbs 07/26/2017 Blood Pressure 1: 146/70 Code: 8480-6 BMI: 26.3 Code: 86516-3 Heart Rate 1: 69 bpm Height: 5'4" SpO2: 98% Weight: 153 lbs 05/26/2017 Blood Pressure 1: 142/76 Code: 8480-6 BMI: 26.4 Code: 76791-7 Heart Rate 1: 59 bpm Height: 5'4" SpO2: 99% Weight: 154 lbs 04/11/2017 Blood Pressure 1: 134/64 Code: 8480-6 BMI: 26.6 Code: 85795-0 Heart Rate 1: 65 bpm Height: 5'4" SpO2: 98% Weight: 155 lbs 02/07/2017 Blood Pressure 1: 120/72 Code: 8480-6 Heart Rate 1: 72 bpm Height: 5'4" SpO2: 96% Weight: 01/26/2017 Blood Pressure 1: 146/68 Code: 8480-6 BMI: 26.4 Code: 14467-5 Heart Rate 1: 96 bpm Height: 5'4" SpO2: 97% Weight: 154 lbs 10/19/2016 Blood Pressure 1: 144/76 Code: 8480-6 BMI: 25.8 Code: 03653-4 Heart Rate 1: 68 bpm Height: 5'4" SpO2: 96% Weight: 150 lbs 8 oz 09/22/2016 Blood Pressure 1: 122/80 Code: 8480-6 BMI: 26.1 Code: 81802-9 Heart Rate 1: 111 bpm Height: 5'4" SpO2: 97% Weight: 152 lbs 08/31/2016 Blood Pressure 1: 152/82 Code: 8480-6 BMI: 27.1 Code: 91151-6 Heart Rate 1: 118 bpm Height: 5'4" SpO2: 96% Weight: 158 lbs 08/12/2016 Blood Pressure 1: 146/78 Code: 8480-6 BMI: 26.9 Code: 99702-1 Heart Rate 1: 68 bpm Height: 5'4" SpO2: 97% Weight: 157 lbs 07/28/2016 Blood Pressure 1: 128/64 Code: 8480-6 BMI: 27.1 Code: 95190-4 Heart Rate 1: 63 bpm Height: 5'4" SpO2: 97% Weight: 158 lbs 01/28/2016 Blood Pressure 1: 130/70 Code: 8480-6 BMI: 27.3 Code: 04122-8 Heart Rate 1: 60 bpm Height: 5'4" SpO2: 95% Weight: 159 lbs 07/29/2015 Blood Pressure 1: 136/80 Code: 8480-6 BMI: 28.1 Code: 25045-7 Heart Rate 1: 68 bpm Height: 5'4" SpO2: 96% Weight: 163 lbs 8 oz 03/31/2015 Blood Pressure 1: 138/88 Code: 8480-6 BMI: 27.5 Code: 53202-5 Heart Rate 1: 72 bpm Height: 5'4" Weight: 160 lbs 12/23/2014 Blood Pressure 1: 138/68 Code: 8480-6 BMI: 27.1 Code: 10789-0 Heart Rate 1: 63 bpm Height: 5'4" SpO2: 94% Weight: 158 lbs Functional Status No Functional Status data History of Present Illness Symptom Name Status Result Effective Date Notes Quality chronic 11/20/2018 None Quality intermittent 11/20/2018 [...] data Encounters Encounter Performer Location Codes Date ([id number]) 68589 EST. PATIENT, LEVEL IV Diagnosis: Cough[ICD10: R05] Diagnosis: Other iron deficiency anemias[ICD10: D50.8] Diagnosis: Essential (primary) hypertension[ICD10: I10] Kandi Cabrera MD, [facility] CPT-4: 15998 11/20/2018 ([id number]) 18669 EST. PATIENT, LEVEL IV Diagnosis: Atrophy of thyroid (acquired)[ICD10: E03.4] Diagnosis: Other iron deficiency anemias[ICD10: D50.8] Diagnosis: Pain in right hip[ICD10: M25.551] Diagnosis: Essential (primary) hypertension[ICD10: I10] Kandi Cabrera MD, [facility] CPT-4: 80869 08/21/2018 ([id number]) 92936 EST. PATIENT, LEVEL IV Diagnosis: Essential (primary) hypertension[ICD10: I10] Diagnosis: Other iron deficiency anemias[ICD10: D50.8] Diagnosis: Tobacco abuse counseling[ICD10: Z71.6] Diagnosis: Chronic atrial fibrillation[ICD10: I48.2] Kandi Cabrera MD, [facility] CPT-4: 86483 07/17/2018 ([id number]) BEHAV CHNG SMOKING 3-10 MIN Diagnosis: [ICD9: ] Diagnosis: [ICD9: ] Diagnosis: [ICD9: ] Diagnosis: [ICD9: ] Kandi Cabrera MD, [facility] CPT-4: 84077 07/17/2018 ([id number]) 75324 EST. PATIENT, LEVEL IV Diagnosis: Other specified anemias[ICD10: D64.89] Diagnosis: Other insomnia[ICD10: G47.09] Diagnosis: Atrophy of thyroid (acquired)[ICD10: E03.4] Diagnosis: Allergic urticaria[ICD10: L50.0] Kandi Cabrera MD, [facility] CPT-4: 98017 06/05/2018 ([id number]) 61665 EST. PATIENT, LEVEL IV Diagnosis: Essential (primary) hypertension[ICD10: I10] Diagnosis: Nonrheumatic aortic (valve) stenosis[ICD10: I35.0] Diagnosis: Atrophy of thyroid (acquired)[ICD10: E03.4] Diagnosis: Chronic atrial fibrillation[ICD10: I48.2] Kandi Cabrera MD, [facility] CPT-4: 57664 04/03/2018 ([id number]) 13296 EST. PATIENT, LEVEL IV Diagnosis: Essential (primary) hypertension[ICD10: I10] Diagnosis: Chronic atrial fibrillation[ICD10: I48.2] Diagnosis: Nonrheumatic aortic (valve) stenosis[ICD10: I35.0] Diagnosis: Age-related osteoporosis without current pathological fracture[ICD10: M81.0] Kandi Cabrera MD, [facility] CPT-4: 52790 03/06/2018 49890 EST. PATIENT, LEVEL III Diagnosis: Low back pain[ICD10: M54.5] Diagnosis: Dysuria[ICD10: R30.0] Diagnosis: Gastro-esophageal reflux disease without esophagitis[ICD10: K21.9] Payton Cabrera MD, [facility] CPT-4: 26013 02/22/2018 ([id number]) 12810 EST. PATIENT, LEVEL III Diagnosis: Atrophy of thyroid (acquired)[ICD10: E03.4] Diagnosis: Other iron deficiency anemias[ICD10: D50.8] Diagnosis: Epigastric pain[ICD10: R10.13] Kandi Cabrera MD, [facility] CPT-4: 39981 12/13/2017 ([id number]) 33255 EST. PATIENT, LEVEL IV Diagnosis: Diverticulitis of large intestine without perforation or abscess without bleeding[ICD10: K57.32] Kandi Cabrera MD, [facility] CPT-4: 04153 11/29/2017 ([id number]) 34364 EST. PATIENT, LEVEL IV Diagnosis: Atrophy of thyroid (acquired)[ICD10: E03.4] Diagnosis: Other iron deficiency anemias[ICD10: D50.8] Diagnosis: Epigastric pain[ICD10: R10.13] Diagnosis: Right lower quadrant pain[ICD10: R10.31] Diagnosis: Left lower quadrant pain[ICD10: R10.32] Kandi Cabrera MD, [facility] CPT-4: 30814 10/27/2017 72002 EST. PATIENT, LEVEL IV Diagnosis: Atrophy of thyroid (acquired)[ICD10: E03.4] Diagnosis: Other iron deficiency anemias[ICD10: D50.8] Diagnosis: Essential (primary) hypertension[ICD10: I10] Diagnosis: Gastro-esophageal reflux disease without esophagitis[ICD10: K21.9] Payton Cabrera MD, [facility] CPT-4: 90709 07/26/2017 ([id number]) 26447 EST. PATIENT, LEVEL IV Diagnosis: Other iron deficiency anemias[ICD10: D50.8] Diagnosis: Atrophy of thyroid (acquired)[ICD10: E03.4] Diagnosis: Tobacco use[ICD10: Z72.0] Diagnosis: Essential (primary) hypertension[ICD10: I10] Diagnosis: Low back pain[ICD10: M54.5] Kandi Cabrera MD, [facility] CPT-4: 00466 05/26/2017 ([id number]) 69221 EST. PATIENT, LEVEL IV Diagnosis: Shortness of breath[ICD10: R06.02] Diagnosis: Tobacco use[ICD10: Z72.0] Diagnosis: Chronic atrial fibrillation[ICD10: I48.2] Kandi Cabrera MD, [facility] CPT-4: 44328 04/11/2017 ([id number]) 40517 EST. PATIENT, LEVEL III Diagnosis: Unsteadiness on feet[ICD10: R26.81] Diagnosis: Tobacco use[ICD10: Z72.0] Kandi Cabrera MD, [facility] CPT-4: 95384 02/07/2017 ([id number]) 81136 EST. PATIENT, LEVEL IV Diagnosis: Cough[ICD10: R05] Diagnosis: Essential (primary) hypertension[ICD10: I10] Diagnosis: Chronic atrial fibrillation[ICD10: I48.2] Diagnosis: Unsteadiness on feet[ICD10: R26.81] Kandi Cabrera MD, [facility] CPT- 4: 35330 01/26/2017 ([id number]) 69449 EST. PATIENT, LEVEL IV Diagnosis: Essential (primary) hypertension[ICD10: I10] Diagnosis: Atrophy of thyroid (acquired)[ICD10: E03.4] Diagnosis: Tobacco use[ICD10: Z72.0] Diagnosis: Chronic atrial fibrillation[ICD10: I48.2] Diagnosis: Mixed hyperlipidemia[ICD10: E78.2] Kandi Cabrera MD, [facility] CPT- 4: 20317 10/19/2016 ([id number]) 00709 EST. PATIENT, LEVEL IV Diagnosis: Atrophy of thyroid (acquired)[ICD10: E03.4] Diagnosis: Mixed hyperlipidemia[ICD10: E78.2] Diagnosis: Essential (primary) hypertension[ICD10: I10] Kandi Cabrera MD [facility] CPT-4: 41266 09/22/2016 ([id number]) 64212 EST. PATIENT, LEVEL IV Diagnosis: Essential (primary) hypertension[ICD10: I10] Diagnosis: Atrophy of thyroid (acquired)[ICD10: E03.4] Diagnosis: Chronic atrial fibrillation[ICD10: I48.2] Kandi Cabrera MD, [facility] CPT-4: 74513 08/31/2016 ([id number]) 11144 EST. PATIENT, LEVEL III Diagnosis: Low back pain[ICD10: M54.5] Diagnosis: Sacroiliitis, not elsewhere classified[ICD10: M46.1] Janene Cabrera MD, [facility] CPT-4: 41959 08/12/2016 ([id number]) 50779 EST. PATIENT, LEVEL IV Diagnosis: Mixed hyperlipidemia[ICD10: E78.2] Diagnosis: Essential (primary) hypertension[ICD10: I10] Diagnosis: Atrophy of thyroid (acquired)[ICD10: E03.4] Kandi Cabrera MD, [facility] CPT-4: 39197 07/28/2016 ([id number]) 52440 EST. PATIENT, LEVEL IV Diagnosis: Hypothyroidism, unspecified[ICD10: E03.9] Diagnosis: Essential (primary) hypertension[ICD10: I10] Diagnosis: Mixed hyperlipidemia[ICD10: E78.2] Diagnosis: Cellulitis of left lower limb[ICD10: L03.116] Diagnosis: Encounter for immunization[ICD10: Z23] Kandi Cabrera MD, [facility] CPT-4: 11727 01/28/2016 ([id number]) 70344 EST. PATIENT, LEVEL IV Diagnosis: Essential (primary) hypertension[ICD10: I10] Diagnosis: Hypothyroidism, unspecified[ICD10: E03.9] Diagnosis: Diarrhea, unspecified[ICD10: R19.7] Diagnosis: Tobacco use[ICD10: Z72.0] Diagnosis: Tobacco abuse counseling[ICD10: Z71.6] Diagnosis: Other obesity due to excess calories[ICD10: E66.09] Kandi Cabrera MD, [facility] CPT-4: 87266 07/29/2015 ([id number]) 95871 EST. PATIENT, LEVEL IV Diagnosis: Essential (primary) hypertension[ICD10: I10] Diagnosis: Hypothyroidism, unspecified[ICD10: E03.9] Diagnosis: Actinic keratosis[ICD10: L57.0] [facility] CPT-4: 37154 03/31/2015 ([id number]) OFFICE VISIT, NEW - LEVEL 4 Diagnosis: ESSENTIAL HYPERTENSION[ICD9: 401.9] Diagnosis: HYPOTHYROIDISM[ICD9: 244.9] Diagnosis: HYPERLIPIDEMIA[ICD9: 272.4] Diagnosis: Osteoporosis[ICD9: 733.00] Diagnosis: OSTEOARTH NOS-UNSPEC[ICD9: 715.90] Diagnosis: Sacroiliitis[ICD9: 720.2] Kandi Cabrera MD, [facility] CPT-4: 93322 12/23/2014 Plan of Care Planned Activity Notes [...] breath, and improve her cardiovascular status. 11/20/2018 Patient Education: Patient Medication Summary Completed [...] valve replacement. 08/21/2018 Appointment: Kandi Cabrera WPtel: [facility] (15 min) Moderate 08/21/2018 Patient Education: Patient [...] cardiovascular status. 07/17/2018 Appointment: Kandi Cabrera WPtel: [facility] (15 min) Moderate 07/17/2018 Patient Education: Patient Medication Summary Completed 07/17/2018 Patient Education: Hypertension Completed 07/17/2018 Appointment: Kandi Cabrera WPtel: [facility] (15 min) Moderate 07/11/2018 Visit Plan: Hypothyroidism [...] on hydroxyzine. 06/05/2018 Appointment: Kandi Cabrera WPtel: [facility] (15 min) Moderate 06/05/2018 Patient Education: Patient [...] Addiction Completed 05/05/2018 Appointment: Kandi Cabrera WPtel: [facility] (15 min) Moderate 04/11/2018 Visit Plan: Hypertension [...] not improving. 04/03/2018 Appointment: Kandi Cabrera WPtel: [phone] [facility] (15 min) Moderate 04/03/2018 Patient Education: Patient [...] a conversation about surgical intervention with her Seat Mender. 03/06/2018 Appointment: Kandi Cabrera WPtel: [phone] [facility] (15 min) Moderate 03/06/2018 Patient [...] not improving. 02/22/2018 Appointment: Payton Leon WPtel: [phone] [facility] [place] (15 min) Moderate 02/22/2018 Patient Education: Patient Medication Summary Completed 02/22/2018 Patient Education: Back Pain Completed 02/22/2018 Visit Plan: Diarrhea - improved - pt advised to avoid seeds, nuts, popcorn, or any other food which has been proven to upset the pt's stomach. 12/13/2017 Appointment: Kandi Cabrera WPtel: [facility] (15 min) Moderate 12/13/2017 Patient Education: Patient Medication Summary Completed 12/13/2017 Visit Plan: Diverticulitis - rx for antibiotic sent to pt's pharmacy - pt advised to avoid seeds, nuts, popcorn, or any other food which has been proven to upset the pt's stomach. 11/29/2017 Appointment: Kandi Cabrera WPtel: [facility] (15 min) Moderate 11/29/2017 Patient Education: Patient Medication Summary Completed 11/29/2017 Appointment: Kandi Cabrera WPtel: [facility] (15 min) Moderate 11/24/2017 Visit Plan: [...] 10 days 10/27/2017 Appointment: Kandi Cabrera WPtel: [facility] [place] (15 min) Moderate 10/27/2017 [...] improving. 07/26/2017 [phone] (30 min) Complex 07/26/2017 Patient Education: Patient Medication Summary Completed 07/26/2017 Care Plan: Iron Pending 07/26/2017 Care Plan: Referral Order SNOMED-CT : [id number] Pending 07/26/2017 Visit Plan: Hypertension - well [...] exercises recommended. 05/26/2017 [phone] (15 min) Moderate 05/26/2017 Patient Education: Patient Medication Summary Completed 05/26/2017 Patient Education: Patient Medication Summary Completed 05/19/2017 Care Plan: Iron Pending 05/19/2017 Visit Plan: Dyspnea on Exertion - uncontrolled - I have recommended pt to have Pulmonary function studies as well as a referral back to her Seat Mender - Dr. Hanna - I suspect she [...] cigarettes". 04/11/2017 Appointment: Kandi Cabrera WPtel: [phone] [facility] (15 min) Moderate 04/11/2017 Patient Education: Patient Medication Summary Completed 04/11/2017 Patient Education: Smoking and Tobacco Addiction Completed 04/11/2017 Care Plan: Referral Order SNOMED-CT : [id number] Pending 04/11/2017 Appointment: Kandi Cabrera WPtel: [phone] [facility] (15 min) Moderate 02/14/2017 Appointment: Injection 02/09/2017 Referral: [facility] W[facility]: [phone] [facility] Patient informed. Completed 02/09/2017 Patient Education: Patient Medication Summary Completed 02/09/2017 Patient Education: Smoking and Tobacco Addiction Completed 02/09/2017 Visit Plan: Tobacco abuse - chronic condition for this patient. Patient has been counseled about need to stop smoking due to the negative health affects. Pt has vocalized understanding and states that they will con project architect smoking cessation, but the pt is not yet ready to use medication to assist cessation. Rx for wellbutrin 75mg 1/2 pill bid. Gait instability - referral to [facility] for gait instability 02/07/2017 Appointment: Kandi Cabrera WPtel: [phone] [facility] (15 min) Moderate 02/07/2017 Patient Education: Patient Medication Summary Completed 02/07/2017 Patient Education: Smoking and Tobacco Addiction Completed 02/07/2017 Care Plan: Referral Order SNOMED-CT : [id number] Pending 02/07/2017 Visit Plan: Cough - pt [...] becoming uncontrolled. 01/26/2017 Appointment: Kandi Cabrera WPtel: [address] [place], [place] [address] (15 min) Moderate 01/26/2017 Patient Education: Patient [...] per week. 10/19/2016 Appointment: Kandi Cabrera WPtel: [facility]5 [facility] (15 min) Moderate 10/19/2016 Patient Education: Patient Medication Summary Completed 10/19/2016 Patient Education: Smoking and Tobacco Addiction Completed 10/19/2016 Patient Education: Hypertension Completed 10/19/2016 Visit Plan: Atrial Fibrillation - pt on chronic anticoagulation and is not optimally rate controlled. Pt is to see her form builder tomorrow, will discuss with him her plans [...] of control. 09/22/2016 Appointment: Kandi Cabrera WPtel: [facility]5 [facility] (15 min) Moderate 09/22/2016 Patient Education: [...] q 3 months or q 6 m [facility] based on previous levels of control. 08/31/2016 Appointment: Kandi Cabrera WPtel: [phone] [facility] (15 min) Moderate 08/31/2016 Patient Education: Patient Medication Summary Completed 08/31/2016 Patient Education: Smoking and Tobacco Addiction Completed 08/31/2016 Patient Education: Hypertension Completed 08/31/2016 Visit Plan: Sacroiliitis -kenalog injection today in the office- tylenol as directed-heat as directed-xray lumbar spine. Pt is to call if the symptoms do not improve or if they worsen. 08/12/2016 Appointment: Janeen Marsh WPtel: [phone] [phone] (30 min) Complex 08/12/2016 Patient Education: Patient Medication Summary Completed 08/12/2016 Patient Education: Smoking and Tobacco Addiction Completed 08/12/2016 Appointment: Payton Leon WPtel: [phone] [facility] [facility] - Annual Wellness Visit 07/30/2016 Visit [...] to medications. 07/28/2016 Appointment: Kandi Cabrera WPtel: [phone] [facility] [place] (15 min) Moderate 07/28/2016 Patient Education: [...] left ankle- rx for keflex sent to [facility] today 01/28/2016 Visit Plan: Hypertension - well [...] left ankle- rx for keflex sent to [facility] today 01/28/2016 [facility]ment: [phone] (15 min) Moderate 01/28/2016 Patient Education: [...] Kandi Cabrera WPtel: [phone] [facility] (15 min) Moderate 07/29/2015 Patient Education: Patient [...] of control. A ctinic keratosis - left restoration and left nasal bridge - pt to use efudex on the lesions on the nose and face. 03/31/2015 Appointment: Kandi Cab[phone] (15 min) Moderate 03/31/2015 Patient Education: [...] levels. 12/23/2014 Appointment: [phone] [facility] [place] ([place] New Patient 12/23/2014 Patient Education: Patient Medication Summary Completed 12/23/2014 Patient Education: Hypertension Completed 12/23/2014 Care Plan: Referral Order SNOMED-CT : [id number] Ordered 12/23/2014 Referral: External, Ordering Provider Referral Completed Referral: External, Ordering Provider Referral Appointment Requested Referral: Maggi Reaves Referral Initiated Referral[phone] Referral Appointment Requested Referral: External, Ordering Provider [...] well as a referral back to her Seat Mender - Dr. Hanna - I suspect she [...] pill bid. [facility] . Hypertension - well [...] rate controlled. Pt is to see her form builder tomorrow, will discuss with him her plans [...] a conversation about surgical intervention with her Seat Mender. . Hypertension - well controlled - continue [...] improve or if they worsen. PROBIOTIC - kathy, Sonian, lactobacilus/acidophilis brand probiotic - these can be [...] levels of control. Actinic keratosis - left restoration and left nasal bridge - pt to [...]
--- OUTSIDE RECORDS SUMMARY | 2018-12-29 13:27 | XMS REPORT | CCD ---
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 Name Role Phone PP Unavailable CCM Unavailable Summary Purpose Interface Exchange Insurance Providers Payer name Policy type / Coverage type Covered libertarian ID Effective Begin Date Effective End Date [facility] Commercial Insurance [id number] Unknown WPS Medicare Part B Commercial Insurance [id number] 2017 Unknown Family history Father Diagnosis Age [...] Unknown Retired 12/23/[address]: 51943224 Current every day smoker 12/23/2014 Number of years using tobacco Unknown > 50 trying to quit 12/23/2014 Number of cigarettes/day Unknown 10 (Half a pack) 12/23/[address]: 278225612 Never drinks alcohol 12/23/2014 Allergies, Adverse Reactions, Alerts Substance Reaction Codes Entered Date Inactivated Date Status ciprofloxacin RxNorm: 70445 05/05/2018 No Inactive Date Active SULFA(SULFONAMIDE ANTIBIOTICS) [...] 9: 781.2 ICD-10: R26.81 Active 01/26/2017 Unknown Cough ICD-9: 786.2 ICD-10: R05 Active 01/26/2017 Unknown Mixed hyperlipidemia ICD- 9: [...] ICD- 9: 781.2 ICD-10: R26.81 01/26/2017 Active Cough ICD-9: 786.2 ICD-10: R05 01/26/2017 Active Mixed hyperlipidemia ICD- 9: 272.4 [...] Fill Instructions sucralfate 1 gram tablet RxNorm: 249602 1 Tablet(s) PO TID 09/11/2018 09/05/2019 Active sucralfate 1 gram tablet RxNorm: 876348 1 Tablet(s) PO TID 09/11/2018 09/10/2018 Inactive diltiazem ER 120 mg capsule,24 hr,extended release RxNorm: 714745 1 Capsule(s) PO daily 08/29/2018 08/23/2019 Active perphenazine-amitriptyline 2 mg-10 mg tablet RxNorm: 193434 2 Tablet(s) PO daily 08/15/2018 11/07/2019 Active PA approved: [id number] 05-17-18-08-15-2019 perphenazine-amitriptyline 2 mg-10 mg tablet RxNorm: 181046 2 Tablet(s) PO daily 08/15/2018 08/14/2018 Inactive PA approved: need 7 days while waiting on mail order perphenazine-amitriptyline 2 mg-10 mg tablet RxNorm: 454829 2 Tablet(s) PO daily 08/04/2018 08/03/2018 Inactive waiting on mail order perphenazine-amitriptyline 2 mg-10 mg tablet RxNorm: 542206 2 Tablet(s) PO daily 08/04/2018 08/03/2018 Inactive perphenazine-amitriptyline 2 mg-10 mg tablet RxNorm: 319683 2 Tablet(s) PO daily 08/04/2018 08/14/2018 Inactive Tricor 145 mg tablet RxNorm: 412120 1 Tablet(s) PO daily 07/17/2018 10/09/2019 Active pantoprazole 40 mg tablet,delayed release RxNorm: 316418 1 Tablet(s) PO daily 07/17/2018 10/09/2019 Active hydroxyzine HCl 25 mg tablet RxNorm: 797483 2 Tablet(s) PO QHS may increase to two pills at hs if allergic reactions are occuring 07/17/2018 11/13/2018 Active Synthroid 100 mcg tablet RxNorm: 537413 1 Tablet(s) PO daily 06/05/2018 08/28/2019 Active hydroxyzine HCl 25 mg tablet RxNorm: 688766 1 Tablet(s) PO QHS may increase to two pills at hs if allergic reactions are occuring 06/05/2018 07/16/2018 Inactive Lasix 20 mg tablet RxNorm: 036714 1 Tablet(s) PO daily as needed not more than one time a day 05/19/2018 09/15/2018 Inactive prednisone 20 mg tablet RxNorm: 516259 2 Tablet(s) PO daily 02/22/2018 02/26/2018 Inactive Cipro 500 mg tablet RxNorm: 557107 1 Tablet(s) PO BID 02/22/2018 02/28/2018 Inactive potassium chloride ER 10 mEq tablet,extended release RxNorm: 330260 1 Tablet(s) PO UD take on days that you take a lasix pill 02/13/2018 02/07/2019 Active Synthroid 100 mcg tablet RxNorm: 356069 1 Tablet(s) PO daily 02/13/2018 06/04/2018 Inactive simvastatin 20 mg tablet RxNorm: 342270 1 Tablet(s) PO QHS 01/13/2018 01/07/2019 Active metronidazole 500 mg tablet RxNorm: 807478 1 Tablet(s) PO TID 11/29/2017 12/08/2017 Inactive alendronate 70 mg tablet RxNorm: 038070 1 Tablet(s) PO weekly 11/29/2017 03/05/2018 Inactive omeprazole 40 mg capsule,delayed release RxNorm: 056317 1 Capsule(s) PO daily 11/11/2017 07/16/2018 Inactive Flagyl 500 mg tablet RxNorm: 701390 1 Tablet(s) PO TID 10/27/2017 11/05/2017 Inactive fluticasone 50 mcg/actuation nasal spray,suspension RxNorm: 8111579 1 [place] NASAL daily 07/26/2017 No Stop Date Active sucralfate 1 gram tablet RxNorm: 422656 1 Tablet(s) PO TID 07/26/2017 07/20/2018 Inactive Protonix 40 mg tablet,delayed release RxNorm: 898022 1 Tablet(s) PO daily 07/26/2017 10/23/2017 Inactive Tricor 145 mg tablet RxNorm: 270479 1 Tablet(s) PO daily 05/26/2017 05/20/2018 Inactive perphenazine-amitriptyline 2 mg-10 mg tablet RxNorm: 708812 2 Tablet(s) PO daily 05/26/2017 05/20/2018 Inactive bupropion HCl 75 mg tablet RxNorm: 296797 1/2 Tablet(s) PO BID 02/07/2017 05/07/2017 Inactive Eliquis 5 mg tablet RxNorm: 9163085 1 Tablet(s) PO BID 01/26/2017 01/20/2018 Inactive sotalol 80 mg tablet RxNorm: 2062373 1 Tablet(s) PO BID 01/26/2017 04/20/2018 Inactive potassium chloride ER 10 mEq tablet,extended release RxNorm: 378773 1 Tablet(s) PO UD take on days that you take a lasix pill 01/26/2017 01/20/2018 Inactive Synthroid 100 mcg tablet RxNorm: 800699 1 Tablet(s) PO daily 01/26/2017 02/12/2018 Inactive diltiazem ER 240 mg capsule,extended release RxNorm: 785491 1 Capsule(s) PO BID 01/26/2017 05/03/2017 Inactive Lasix 20 mg tablet RxNorm: 1 Tablet(s) PO daily as needed not more than one time a day 01/26/2017 05/25/2017 Inactive simvastatin 20 mg tablet RxNorm: 665721 1 Tablet(s) PO QHS 12/21/2016 12/15/2017 Inactive alendronate 70 mg tablet RxNorm: 267325 1 Tablet(s) PO weekly 12/21/2016 11/28/2017 Inactive omeprazole 40 mg capsule,delayed release RxNorm: 104530 1 Capsule(s) PO daily 10/19/2016 10/12/2017 Inactive metoprolol succinate ER 100 mg tablet,extended release 24 hr RxNorm: 221872 1.5 Tablet(s) PO daily 09/17/2016 10/18/2016 Inactive Dosage increased by Dr. Vazquez potassium chloride ER 10 mEq tablet,extended release RxNorm: 935873 1 Tablet(s) PO UD take on days that you take a lasix pill 08/31/2016 12/28/2016 Inactive Lasix 20 mg tablet RxNorm: 1 Tablet(s) PO daily as needed not more than one time a day 08/31/2016 12/28/2016 Inactive Kenalog 40 mg/mL suspension for injection RxNorm: 3468400 1 Milliliter(s) Inj 08/12/2016 08/12/2016 Inactive Tricor 145 mg tablet RxNorm: 230974 1 Tablet(s) PO daily 05/21/2016 05/15/2017 Inactive atenolol 25 mg tablet RxNorm: 854288 1 Tablet(s) PO daily 05/21/2016 08/30/2016 Inactive sucralfate 1 gram tablet RxNorm: 395493 1 Tablet(s) PO TID 05/21/2016 05/15/2017 Inactive enalapril maleate 10 mg tablet RxNorm: 941453 1 Tablet(s) PO daily 04/26/2016 08/30/2016 Inactive perphenazine-amitriptyline 2 mg-10 mg tablet RxNorm: 233439 2 Tablet(s) PO daily 04/26/2016 04/20/2017 Inactive fluticasone 50 mcg/actuation nasal spray,suspension RxNorm: 9430766 1 [place] NASAL daily 04/26/2016 07/25/2017 Inactive Synthroid 100 mcg tablet RxNorm: 922290 1 Tablet(s) PO daily 02/09/2016 01/25/2017 Inactive Synthroid 100 mcg tablet RxNorm: 716513 1 Tablet(s) PO daily 02/09/2016 02/08/2016 Inactive Keflex 500 mg capsule RxNorm: 256526 1 Capsule(s) PO TID 01/28/2016 02/01/2016 Inactive hydrochlorothiazide 25 mg tablet RxNorm: 164118 TAKE 1 TABLET DAILY 01/07/2016 08/30/2016 Inactive enalapril maleate 10 mg tablet RxNorm: 701735 1 Tablet(s) PO daily 12/26/2015 04/25/2016 Inactive hydrochlorothiazide 25 mg tablet RxNorm: 894921 1 Tablet(s) PO daily 12/08/2015 08/30/2016 Inactive omeprazole 40 mg capsule,delayed release RxNorm: 068730 1 Capsule(s) PO daily 12/08/2015 10/18/2016 Inactive simvastatin 20 mg tablet RxNorm: 401851 1 Tablet(s) PO QHS 11/14/2015 11/07/2016 Inactive alendronate 70 mg tablet RxNorm: 508328 1 Tablet(s) PO weekly 10/31/2015 10/24/2016 Inactive Synthroid 112 mcg tablet RxNorm: 375978 1 Tablet(s) PO daily 07/16/2015 02/08/2016 Inactive sucralfate 1 gram tablet RxNorm: 682854 1 Tablet(s) PO TID 06/17/2015 05/20/2016 Inactive perphenazine-amitriptyline 2 mg-10 mg tablet RxNorm: 783905 2 Tablet(s) PO daily 06/17/2015 04/25/2016 Inactive fluticasone 50 mcg/actuation nasal spray,suspension RxNorm: 2555813 1 [place] NASAL daily 06/17/2015 04/25/2016 Inactive fluorouracil 5 % topical cream RxNorm: 027199 APPLY 1 APPLICATION TOPICALLY TWO TIMES A DAY 06/16/2015 06/25/2015 Inactive fluticasone 50 mcg/actuation nasal spray,suspension RxNorm: 223603 1 [place] NASAL daily 06/12/2015 06/16/2015 Inactive atenolol 25 mg tablet RxNorm: 976451 1 Tablet(s) PO daily 05/14/2015 05/07/2016 Inactive Tricor 145 mg tablet RxNorm: 362585 1 Tablet(s) PO daily 04/23/2015 04/16/2016 Inactive Synthroid 125 mcg tablet RxNorm: 088458 1 Tablet(s) PO daily 03/31/2015 07/15/2015 Inactive fluorouracil 5 % topical cream RxNorm: 232038 1 Application TOP BID 03/31/2015 04/09/2015 Inactive Synthroid 137 mcg tablet RxNorm: 326268 1 Tablet(s) PO daily 12/25/2014 12/24/2014 Inactive Synthroid 137 mcg tablet RxNorm: 173085 1 Tablet(s) PO daily 12/25/2014 03/30/2015 Inactive Voltaren 1 % topical gel RxNorm: 600136 4 Gram(s) TOP QID 12/23/2014 04/21/2015 Inactive alendronate 70 mg tablet RxNorm: 828550 1 Tablet(s) PO weekly 12/23/2014 12/22/2014 Inactive alendronate 70 mg tablet RxNorm: 294469 1 Tablet(s) PO weekly 12/23/2014 10/30/2015 Inactive Fosamax 70 mg tablet RxNorm: 342606 1 Tablet(s) PO weekly QW 12/23/2014 01/27/2016 Inactive omeprazole 40 mg capsule,delayed release RxNorm: 868234 1 Capsule(s) PO daily 12/18/2014 12/07/2015 Inactive omeprazole 40 mg capsule,delayed release RxNorm: 709587 1 Capsule(s) PO daily 12/18/2014 12/17/2014 Inactive hydrochlorothiazide 25 mg tablet RxNorm: 766160 1 Tablet(s) PO daily 12/18/2014 12/17/2014 Inactive hydrochlorothiazide 25 mg tablet RxNorm: 704791 1 Tablet(s) PO daily 12/18/2014 12/07/2015 Inactive L-Lysine 1,000 mg tablet RxNorm: 619049 1 Tablet(s) PO daily No Start Date Active folic acid 400 mcg tablet RxNorm: 870809 1 Tablet(s) PO daily No Start Date Active B12 1000 mcg RxNorm: 1/2 Tablet(s) PO daily No Start Date Active Vitamin D3 1,000 unit chewable tablet RxNorm: 117930 1 Tablet(s) PO daily No Start Date Active metoprolol succinate ER 100 mg tablet,extended release 24 hr RxNorm: 374890 1 Tablet(s) PO daily No Start Date 09/16/2016 Inactive enalapril maleate 10 mg tablet RxNorm: 051652 1 Tablet(s) PO daily No Start Date 12/25/2015 Inactive perphenazine-amitriptyline 2 mg-10 mg tablet RxNorm: 768467 2 Tablet(s) PO daily No Start Date 06/16/2015 Inactive sucralfate 1 gram tablet RxNorm: 218289 1 Tablet(s) PO TID No Start Date 06/16/2015 Inactive hydrochlorothiazide 25 mg tablet RxNorm: 189477 1 Tablet(s) PO daily No Start Date 08/30/2016 Inactive vitamin E (dl, acetate) 400 unit capsule RxNorm: 583844 1 Capsule(s) PO daily No Start Date 03/05/2018 Inactive sotalol 80 mg tablet RxNorm: 1286027 1 Tablet(s) PO BID No Start Date 01/25/2017 Inactive Synthroid 150 mcg tablet RxNorm: 795367 1 Tablet(s) PO daily No Start Date 12/24/2014 Inactive diltiazem ER 120 mg capsule,24 hr,extended release RxNorm: 500907 1 Capsule(s) PO daily No Start Date 08/28/2018 Inactive simvastatin 20 mg tablet RxNorm: 339681 1 Tablet(s) PO daily No Start Date 11/13/2015 Inactive Vitamin C RxNorm: PO 1000mg qd No Start Date 03/05/2018 Inactive Fosamax 70 mg tablet RxNorm: 346416 1 Tablet(s) PO weekly No Start Date 12/22/2014 Inactive Tricor 145 mg tablet RxNorm: 047789 1 Tablet(s) PO daily No Start Date 04/22/2015 Inactive diltiazem ER 180 mg capsule,24 hr,extended release RxNorm: 139968 1 Capsule(s) PO daily No Start Date 03/05/2018 Inactive diltiazem 120 mg tablet RxNorm: 862416 1 Tablet(s) PO daily No Start Date 08/29/2018 Inactive diltiazem ER 240 mg capsule,extended release RxNorm: 009363 1 Capsule(s) PO BID No Start Date 01/25/2017 Inactive Eliquis 5 mg tablet RxNorm: 0929128 1 Tablet(s) PO BID No Start Date 01/25/2017 Inactive fluticasone 50 mcg/actuation nasal spray,suspension RxNorm: 677229 1 [place] NASAL daily No Start Date 06/11/2015 Inactive atenolol 25 mg tablet RxNorm: 713413 1 Tablet(s) PO daily No Start Date 05/13/2015 Inactive Medication Administered Medication Codes Instructions Start Date Status Kenalog 40 mg/mL suspension for injection RxNorm: 9929106 1Milliliter 08/12/2016 No longer Active Immunizations Vaccine Codes Date Status Influenza CVX: 141 03/21/2018 completed Influenza CVX: 141 02/09/2017 completed Pneumococcal (Adult) CVX: 133 02/09/2017 completed Influenza CVX: 141 01/28/2016 completed Zoster CVX: 121 07/22/2011 completed Pneumococcal CVX: 33 11/20/2008 completed Assessments Condition Codes Effective Dates Essential (primary) hypertension ICD-10: I10 ICD-9: 401.9 08/21/2018 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 ICD-9: 244.8 08/21/2018 Pain in right hip ICD-10: M25.551 ICD-9: 719.45 08/21/2018 Other iron deficiency anemias ICD-10: D50.8 ICD-9: 280.1 08/21/2018 Tobacco abuse counseling ICD-10: Z71.6 ICD-9: [...] Reason For Visit Effective Dates Notes hypertension 08/21/2018 hypertension 07/17/2018 hypertension 06/05/2018 Annual [...] Result Date Cbc With Differential Ord2 WBC 4.82 K/ul 09/20/2018 Cbc With Differential Ord2 RBC 4.70 M/ul 09/20/2018 Cbc With Differential Ord2 HGB 13.1 g/dl 09/20/2018 Cbc With Differential Ord2 HCT 40.3 % 09/20/2018 Cbc With Differential Ord2 Neut% 56.5 % 09/20/2018 Cbc With Differential Ord2 MCV 85.7 fl 09/20/2018 Cbc With Differential Ord2 Lymph% 26.3 % 09/20/2018 Cbc With Differential Ord2 MCH 27.9 pg 09/20/2018 Cbc With Differential Ord2 Glynn% 14.1 % 09/20/2018 Cbc With Differential Ord2 MCHC 32.5 pg 09/20/2018 Cbc With Differential Ord2 Eos% 2.7 % 09/20/2018 Cbc With Differential Ord2 PLT 356 K/ul 09/20/2018 Cbc With Differential Ord2 Baso% 0.4 % 09/20/2018 Cbc With Differential Ord2 RDW 24.0 % 09/20/2018 Cbc With Differential Ord2 Neut ABS# 2.72 K/ul 09/20/2018 Cbc With Differential Ord2 Lymph ABS# 1.27 K/ul 09/20/2018 Cbc With Differential Ord2 Glynn ABS# 0.7 K/ul 09/20/2018 Cbc With Differential Ord2 Eos ABS# 0.1 K/ul 09/20/2018 Cbc With Differential Ord2 Baso ABS# 0.0 K/ul 09/20/2018 Tsh Ord6 TSH (3rd IS) 0.97 uIU/mL 08/14/2018 Tibc Ord40 Iron 90 ug/dl 08/14/2018 Tibc Ord40 UIBC 380 ug/dL 08/14/2018 Tibc Ord40 TIBC 470 ug/dL 08/14/2018 Tibc Ord40 Fe-%Sat 19.1 % 08/14/2018 Comp Metabolic Gbg335 NA 136 mEq/L 08/14/2018 Comp Metabolic Qxl735 K 4.3 mEq/L 08/14/2018 Comp Metabolic Suz364 CL 100 mEq/L 08/14/2018 Comp Metabolic Fei432 CO2 28.0 mEq/L 08/14/2018 Comp Metabolic Jfy082 ANION GAP 12 08/14/2018 Comp Metabolic Ipi889 GLUCOSE 111 mg/dL 08/14/2018 Comp Metabolic Ntt755 Creat 0.9 mg/dL 08/14/2018 Comp Metabolic Xye787 eGFR 66 ml/min/1.73m2 08/14/2018 Comp Metabolic Tse411 BUN 22 mg/dL 08/14/2018 Comp Metabolic Vcd354 B/C Ratio 25.3 Ratio 08/14/2018 Comp Metabolic Isr392 CALCIUM 10.1 mg/dL 08/14/2018 Comp Metabolic Omk266 ALK PHOS 45 U/L 08/14/2018 Comp Metabolic Qeh148 AST(SGOT) 16 U/L 08/14/2018 Comp Metabolic Jnk301 ALT(SGPT) 7 U/L 08/14/2018 Comp Metabolic Ooi930 BILI T 0.4 mg/dL 08/14/2018 Comp Metabolic Qrx714 ALBUMIN 4.0 g/dL 08/14/2018 Comp Metabolic Ohf060 TPRO 7.0 g/dL 08/14/2018 Comp Metabolic Jpp813 GLOB 3.0 g/dL 08/14/2018 Comp Metabolic Qfj373 A/G Ratio 1.3 Ratio 08/14/2018 Comp Metabolic Qhx342 Osmo 276 mOsmo 08/14/2018 Cbc With Differential [...] 26.2 pg 08/14/2018 Cbc With Differential Ord2 Glynn% 9.1 % 08/14/2018 Cbc With Differential Ord2 Eos% 1.8 % 08/14/2018 Cbc With Differential Ord2 MCHC 31.0 pg 08/14/2018 Cbc With Differential Ord2 PLT 293 K/ul 08/14/2018 Cbc With Differential Ord2 Baso% 0.5 % 08/14/2018 Cbc With Differential Ord2 Neut ABS# 4.34 K/ul 08/14/2018 Cbc With Differential Ord2 Lymph ABS# 0.93 K/ul 08/14/2018 Cbc With Differential Ord2 [place] ABS# 0.5 K/ul 08/14/2018 Cbc With Differential Ord2 Eos ABS# 0.1 K/ul 08/14/2018 Cbc With Differential Ord2 Baso ABS# 0.0 K/ul 08/14/2018 Free T4 Sgm383 FREE T4 1.00 ng/dL 08/14/2018 Tibc Ord40 [...] 24.9 pg 06/21/2018 Cbc With Differential Ord2 Glynn% 15.0 % 06/21/2018 Cbc With Differential Ord2 [...] 1.35 K/ul 06/21/2018 Cbc With Differential Ord2 [place] ABS# 0.9 K/ul 06/21/2018 Cbc With Differential [...] 24.9 pg 06/01/2018 Cbc With Differential Ord2 Glynn% 12.8 % 06/01/2018 Cbc With Differential Ord2 [...] 0.81 K/ul 06/01/2018 Cbc With Differential Ord2 [place] ABS# 0.7 K/ul 06/01/2018 Cbc With Differential [...] 29.9 pg 03/17/2018 Cbc With Differential Ord2 Glynn% 13.3 % 03/17/2018 Cbc With Differential Ord2 [...] 0.90 K/ul 03/17/2018 Cbc With Differential Ord2 [place] ABS# 0.8 K/ul 03/17/2018 Cbc With Differential [...] 30.2 pg 02/22/2018 Cbc With Differential Ord2 Glynn% 11.5 % 02/22/2018 Cbc With Differential Ord2 [...] 0.86 K/ul 02/22/2018 Cbc With Differential Ord2 [place] ABS# 0.7 K/ul 02/22/2018 Cbc With Differential Ord2 Eos ABS# 0.2 K/ul 02/22/2018 Cbc With Differential Ord2 Baso ABS# 0.1 K/ul 02/22/2018 Tsh Ord6 TSH (3rd IS) 0.66 uIU/mL 02/22/2018 Free T4 Ica197 FREE T4 1.22 ng/dL 02/22/2018 Comp Metabolic Hym658 NA 136 mEq/L 02/22/2018 Comp Metabolic Zlf353 K 4.4 mEq/L 02/22/2018 Comp Metabolic Zqa156 CL 102 mEq/L 02/22/2018 Comp Metabolic Hgh650 CO2 23.0 mEq/L 02/22/2018 Comp Metabolic Fny883 ANION GAP 15 02/22/2018 Comp Metabolic Cim673 GLUCOSE 94 mg/dL 02/22/2018 Comp Metabolic Dkq743 Creat 1.2 mg/dL 02/22/2018 Comp Metabolic Dlg093 eGFR 46 ml/min/1.73m2 02/22/2018 Comp Metabolic Ibg842 BUN 31 mg/dL 02/22/2018 Comp Metabolic Wgv462 B/C Ratio 25.8 Ratio 02/22/2018 Comp Metabolic Yzr398 CALCIUM 9.2 mg/dL 02/22/2018 Comp Metabolic Tjx565 ALK PHOS 34 U/L 02/22/2018 Comp Metabolic Seq088 AST(SGOT) 18 U/L 02/22/2018 Comp Metabolic Mka461 ALT(SGPT) 8 U/L 02/22/2018 Comp Metabolic Tzj601 BILI T 0.4 mg/dL 02/22/2018 Comp Metabolic Nts478 ALBUMIN 3.6 g/dL 02/22/2018 Comp Metabolic Nby040 TPRO 6.2 g/dL 02/22/2018 Comp Metabolic Myq154 GLOB 2.6 g/dL 02/22/2018 Comp Metabolic Prm777 A/G Ratio 1.4 Ratio 02/22/2018 Comp Metabolic Laf217 Osmo 278 mOsmo 02/22/2018 Free T4 Rlp123 FREE T4 1.11 ng/dL 10/27/2017 Lipid Ord30 [...] 30.7 pg 10/27/2017 Cbc With Differential Ord2 Glynn% 11.3 % 10/27/2017 Cbc With Differential Ord2 [...] 1.16 K/ul 10/27/2017 Cbc With Differential Ord2 [place] ABS# 0.6 K/ul 10/27/2017 Cbc With Differential Ord2 Eos ABS# 0.2 K/ul 10/27/2017 Cbc With Differential Ord2 Baso ABS# 0.0 K/ul 10/27/2017 Comp Metabolic Vbm060 NA 135 mEq/L 10/27/2017 Comp Metabolic Cgh760 K 4.7 mEq/L 10/27/2017 Comp Metabolic Mxq001 CL 101 mEq/L 10/27/2017 Comp Metabolic Yax339 CO2 23.0 mEq/L 10/27/2017 Comp Metabolic Pjy760 ANION GAP 16 10/27/2017 Comp Metabolic Lnb121 GLUCOSE 84 mg/dL 10/27/2017 Comp Metabolic Yxr693 Creat 1.2 mg/dL 10/27/2017 Comp Metabolic Wdv120 eGFR 46 ml/min/1.73m2 10/27/2017 Comp Metabolic Pyy443 BUN 30 mg/dL 10/27/2017 Comp Metabolic Suw915 B/C Ratio 25.2 Ratio 10/27/2017 Comp Metabolic Ddf568 CALCIUM 9.4 mg/dL 10/27/2017 Comp Metabolic Imo240 ALK PHOS 30 U/L 10/27/2017 Comp Metabolic Bik260 AST(SGOT) 25 U/L 10/27/2017 Comp Metabolic Gto070 ALT(SGPT) 12 U/L 10/27/2017 Comp Metabolic Cks308 BILI T 0.5 mg/dL 10/27/2017 Comp Metabolic Mzk222 ALBUMIN 3.7 g/dL 10/27/2017 Comp Metabolic Qyb963 TPRO 6.5 g/dL 10/27/2017 Comp Metabolic Wsz431 GLOB 2.8 g/dL 10/27/2017 Comp Metabolic Gei326 A/G Ratio 1.3 Ratio 10/27/2017 Comp Metabolic Wty072 Osmo 275 mOsmo 10/27/2017 Hgb & Hct Ord65 HGB 12.2 g/dl 07/29/2017 Hgb & Hct Ord65 HCT 38.8 % 07/29/2017 Tibc Ord40 Iron 79 ug/dl 07/26/2017 Tibc Ord40 UIBC 380 ug/dL 07/26/2017 Tibc Ord40 TIBC 459 ug/dL 07/26/2017 Tibc Ord40 Fe-%Sat 17.2 % 07/26/2017 Tsh Ord6 TSH (3rd IS) 0.46 uIU/mL 07/26/2017 Ferritin Ord22 FERRITIN 83.6 ng/mL 07/26/2017 Free T4 Iho553 FREE T4 1.00 ng/dL 07/26/2017 Tibc Ord40 [...] 31.0 pg 08/02/2016 Cbc With Differential Ord2 Glynn% 9.4 % 08/02/2016 Cbc With Differential Ord2 [...] 1.44 K/ul 08/02/2016 Cbc With Differential Ord2 [place]nn ABS# 0.7 K/ul 08/02/2016 Cbc With Differential Ord2 Eos ABS# 0.3 K/ul 08/02/2016 Cbc With Differential Ord2 Baso ABS# 0.1 K/ul 08/02/2016 Lipid Ord30 CHOL 142 mg/dL 08/02/2016 Lipid Ord30 HDL 40.0 mg/dl 08/02/2016 Lipid Ord30 TRIG 169 mg/dL 08/02/2016 Lipid Ord30 LDL 68 mg/dL 08/02/2016 Lipid Ord30 C/HDL 3.6 Ratio 08/02/2016 Comp Metabolic Eru384 NA 139 mEq/L 08/02/2016 Comp Metabolic Uvw912 K 5.2 mEq/L 08/02/2016 Comp Metabolic Pll377 CL 108 mEq/L 08/02/2016 Comp Metabolic Pma462 CO2 22.0 mEq/L 08/02/2016 Comp Metabolic Dwx541 ANION GAP 14 08/02/2016 Comp Metabolic Ejb662 GLUCOSE 103 mg/dL 08/02/2016 Comp Metabolic Iyt476 Creat 1.1 mg/dL 08/02/2016 Comp Metabolic Xgb481 eGFR 54 ml/min/1.73m2 08/02/2016 Comp Metabolic Afg817 BUN 26 mg/dL 08/02/2016 Comp Metabolic Aag722 B/C Ratio 24.8 Ratio 08/02/2016 Comp Metabolic Cgy255 CALCIUM 9.4 mg/dL 08/02/2016 Comp Metabolic Pqt255 ALK PHOS 41 U/L 08/02/2016 Comp Metabolic Ndn563 AST(SGOT) 18 U/L 08/02/2016 Comp Metabolic Xdj947 ALT(SGPT) 10 U/L 08/02/2016 Comp Metabolic Vos591 BILI T 0.3 mg/dL 08/02/2016 Comp Metabolic Tht903 ALBUMIN 3.7 g/dL 08/02/2016 Comp Metabolic Bkn586 TPRO 6.5 g/dL 08/02/2016 Comp Metabolic Yru491 GLOB 2.8 g/dL 08/02/2016 Comp Metabolic Dif468 A/G Ratio 1.3 Ratio 08/02/2016 Comp Metabolic Cdo577 Osmo 283 mOsmo 08/02/2016 Free T4 Ltj692 FREE T4 1.08 ng/dL 08/02/2016 Tsh Ord6 hTSH II 0.35 uIU/mL 05/13/2016 Free T4 Ehs852 FREE T4 0.78 ng/dL 05/13/2016 Free T4 Agz285 FREE T4 1.13 ng/dL 01/28/2016 Tsh Ord6 [...] 30.2 pg 07/14/2015 Cbc With Differential Ord2 Glynn% 9.1 % 07/14/2015 Cbc With Differential Ord2 [...] 1.80 K/ul 07/14/2015 Cbc With Differential Ord2 [place]nn ABS# 0.7 K/ul 07/14/2015 Cbc With Differential [...] Ord30 C/HDL 3.0 Ratio 07/14/2015 Comp Metabolic Wps848 NA 136 mEq/L 07/14/2015 Comp Metabolic Rpp827 K 4.4 mEq/L 07/14/2015 Comp Metabolic Ned361 CL 101 mEq/L 07/14/2015 Comp Metabolic Mtu669 CO2 27.0 mEq/L 07/14/2015 Comp Metabolic Niv645 ANION GAP 12 07/14/2015 Comp Metabolic Mjk213 GLUCOSE 97 mg/dL 07/14/2015 Comp Metabolic Zmo557 Creat 1.0 mg/dL 07/14/2015 Comp Metabolic Cyf153 eGFR 56 ml/min/1.73m2 07/14/2015 Comp Metabolic Ofo281 BUN 27 mg/dL 07/14/2015 Comp Metabolic Ues187 B/C Ratio 26.7 Ratio 07/14/2015 Comp Metabolic Ejd513 CALCIUM 9.3 mg/dL 07/14/2015 Comp Metabolic Gmc495 ALK PHOS 33 U/L 07/14/2015 Comp Metabolic Fru578 AST(SGOT) 14 U/L 07/14/2015 Comp Metabolic Vpu808 ALT(SGPT) 8 U/L 07/14/2015 Comp Metabolic Uvp580 BILI T 0.4 mg/dL 07/14/2015 Comp Metabolic Tol394 ALBUMIN 3.8 g/dL 07/14/2015 Comp Metabolic Ecl177 TPRO 6.6 g/dL 07/14/2015 Comp Metabolic Xas140 GLOB 2.8 g/dL 07/14/2015 Comp Metabolic Eox215 A/G Ratio 1.4 Ratio 07/14/2015 Comp Metabolic Mif309 Osmo 277 mOsmo 07/14/2015 Tsh Ord6 hTSH II 0.23 uIU/mL 07/14/2015 Free T4 Stz794 FREE T4 1.19 ng/dL 07/14/2015 Cbc With [...] Ord30 C/HDL 3.4 Ratio 03/26/2015 Comp Metabolic Jvm200 NA 135 mEq/L 03/26/2015 Comp Metabolic Puv106 K 5.0 mEq/L 03/26/2015 Comp Metabolic Cve909 CL 99 mEq/L 03/26/2015 Comp Metabolic Zen732 CO2 27.0 mEq/L 03/26/2015 Comp Metabolic Pnh919 ANION GAP 14 03/26/2015 Comp Metabolic Ioj917 GLUCOSE 88 mg/dL 03/26/2015 Comp Metabolic Sye853 Creat 1.1 mg/dL 03/26/2015 Comp Metabolic Par096 eGFR 50 ml/min/1.73m2 03/26/2015 Comp Metabolic Lls073 BUN 27 mg/dL 03/26/2015 Comp Metabolic Brk978 B/C Ratio 24.1 Ratio 03/26/2015 Comp Metabolic Jes177 CALCIUM 9.9 mg/dL 03/26/2015 Comp Metabolic Ava486 ALK PHOS 30 U/L 03/26/2015 Comp Metabolic Dep459 AST(SGOT) 16 U/L 03/26/2015 Comp Metabolic Vwk236 ALT(SGPT) 8 U/L 03/26/2015 Comp Metabolic Oah330 BILI T 0.4 mg/dL 03/26/2015 Comp Metabolic Lmj754 ALBUMIN 3.9 g/dL 03/26/2015 Comp Metabolic Riq468 TPRO 6.4 g/dL 03/26/2015 Comp Metabolic Xbh371 GLOB 2.5 g/dL 03/26/2015 Comp Metabolic Pca585 A/G Ratio 1.6 Ratio 03/26/2015 Comp Metabolic Bys583 Osmo 275 mOsmo 03/26/2015 Free T4 Nlc020 FREE T4 1.22 ng/dL 03/26/2015 Tsh Ord6 hTSH II 0.20 uIU/mL 03/26/2015 Vitamin D 25 Oh [id number] VITAMIN D, 25 HYDROXY 51.09 ng/mL 12/25/2014 Tsh Ord6 hTSH II 0.09 uIU/mL 12/23/2014 Free T4 Skw307 FREE T4 1.30 ng/dL 12/23/2014 Comp Metabolic Ubz262 NA 135 mEq/L 12/23/2014 Comp Metabolic Ixn266 K 4.7 mEq/L 12/23/2014 Comp Metabolic Eeu494 CL 100 mEq/L 12/23/2014 Comp Metabolic Nia361 CO2 23.0 mEq/L 12/23/2014 Comp Metabolic Sbr994 ANION GAP 17 12/23/2014 Comp Metabolic Fnu363 GLUCOSE 93 mg/dL 12/23/2014 Comp Metabolic Hac802 Creat 1.1 mg/dL 12/23/2014 Comp Metabolic Cqg060 eGFR 53 ml/min/1.73m2 12/23/2014 Comp Metabolic Fix751 BUN 26 mg/dL 12/23/2014 Comp Metabolic Ski625 B/C Ratio 24.3 Ratio 12/23/2014 Comp Metabolic Lcc492 CALCIUM 9.5 mg/dL 12/23/2014 Comp Metabolic Oww694 ALK PHOS 27 U/L 12/23/2014 Comp Metabolic Cbv402 AST(SGOT) 16 U/L 12/23/2014 Comp Metabolic Lpo124 ALT(SGPT) 8 U/L 12/23/2014 Comp Metabolic Ywj522 BILI T 0.4 mg/dL 12/23/2014 Comp Metabolic Nhc776 ALBUMIN 3.9 g/dL 12/23/2014 Comp Metabolic Cxh902 TPRO 6.7 g/dL 12/23/2014 Comp Metabolic Ole841 GLOB 2.8 g/dL 12/23/2014 Comp Metabolic Uvr513 A/G Ratio 1.4 Ratio 12/23/2014 Comp Metabolic Byu338 Osmo 275 mOsmo 12/23/2014 Review of Systems System Result Effective Dates Constitutional No recent illness 08/21/2018 Constitutional No [...] nourished 08/21/2018 None Full Exam - General 1995 Constitutional general appearance Hygiene/Attention to Grooming: good [...] lips 10/27/2017 None Full Exam - General 1995 Ears/Nose/Throat oral cavity/pharynx/larynx Overall: oral mucosa clear [...] dentition 05/26/2017 None Full Exam - General 1995 Ears/Nose/Throat oral cavity/pharynx/larynx Overall: oral mucosa clear [...] inspection of skin Consistency: thick 03/31/2015 left pentecostalism and left nasal bridge - actinic keratosis [...] SUBSEQ VISIT CPT- 4: G0439 05/05/2018 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 3-[address]: 843207686 CPT-4: G0436 04/11/2017 PNEUMOCOCCAL VACC [address]: 84100621 CPT-4: 83172 02/09/2017 FLU VACC PRSV FREE INC ANTIG CPT-4: 12806 02/09/2017 ADMIN INFLUENZA VIRUS VAC CPT-4: G0008 02/09/2017 ADMIN PNEUMOCOCCAL VACCINE SNOMED CT: 08567556 CPT-4: G0009 02/09/2017 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 3-[address]: 335912235 CPT-4: G0436 02/07/2017 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 3-[address]: 101405263 CPT-4: G0436 10/19/2016 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 3-[address]: 853904240 CPT-4: G0436 08/31/2016 TRIAMCINOLONE ACET INJ NOS CPT-4: J3301 08/12/2016 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 3-[address]: 116536387 CPT-4: G0436 07/28/2016 ADMIN INFLUENZA VIRUS VAC CPT-4: G0008 01/28/2016 FLU VACC 4 JULISA 3 YRS PLUS IM SNOMED CT: 45093546 CPT-4: 41157 01/28/2016 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 3-[address]: 231610340 CPT-4: G0436 07/29/2015 Vital Signs Date Vital 08/21/2018 Blood Pressure 1: 144/82 Code: 8480-6 BMI: 23.9 Code: 60266-0 Heart Rate 1: 99 bpm Height: 5'4" SpO2: 95% Weight: 139 lbs 07/17/2018 Blood Pressure 1: 126/54 Code: 8480-6 BMI: 24.4 Code: 98969-3 Heart Rate 1: 70 bpm Height: 5'4" SpO2: 98% Weight: 142 lbs 06/05/2018 Blood Pressure 1: 122/60 Code: 8480-6 BMI: 25.4 Code: 41208-1 Heart Rate 1: 74 bpm Height: 5'4" SpO2: 98% Weight: 148 lbs 05/05/2018 Blood Pressure 1: 130/64 Code: 8480-6 BMI: 25.1 Code: 63134-9 Heart Rate 1: 72 bpm Height: 5'4" SpO2: 97% Weight: 146 lbs 04/03/2018 Blood Pressure 1: 142/80 Code: 8480-6 BMI: 25.2 Code: 53042-4 Heart Rate 1: 99 bpm Height: 5'4" SpO2: 97% Weight: 147 lbs 03/06/2018 Blood Pressure 1: 140/80 Code: 8480-6 BMI: 26.1 Code: 29071-5 Heart Rate 1: 71 bpm Height: 5'4" SpO2: 98% Weight: 152 lbs 02/22/2018 Blood Pressure 1: 146/68 Code: 8480-6 BMI: 26.6 Code: 78863-1 Heart Rate 1: 88 bpm Height: 5'4" SpO2: 97% Weight: 155 lbs 12/13/2017 Blood Pressure 1: 132/68 Code: 8480-6 BMI: 26.6 Code: 35277-9 Heart Rate 1: 72 bpm Height: 5'4" SpO2: 94% Weight: 154 lbs 14 oz 11/29/2017 Blood Pressure 1: 130/64 Code: 8480-6 BMI: 26.1 Code: 18941-4 Heart Rate 1: 81 bpm Height: 5'4" SpO2: 94% Weight: 152 lbs 10/27/2017 Blood Pressure 1: 120/62 Code: 8480-6 BMI: 25.9 Code: 42650-9 Heart Rate 1: 70 bpm Height: 5'4" SpO2: 96% Weight: 151 lbs 07/26/2017 Blood Pressure 1: 146/70 Code: 8480-6 BMI: 26.3 Code: 99002-2 Heart Rate 1: 69 bpm Height: 5'4" SpO2: 98% Weight: 153 lbs 05/26/2017 Blood Pressure 1: 142/76 Code: 8480-6 BMI: 26.4 Code: 16557-9 Heart Rate 1: 59 bpm Height: 5'4" SpO2: 99% Weight: 154 lbs 04/11/2017 Blood Pressure 1: 134/64 Code: 8480-6 BMI: 26.6 Code: 68943-0 Heart Rate 1: 65 bpm Height: 5'4" SpO2: 98% Weight: 155 lbs 02/07/2017 Blood Pressure 1: 120/72 Code: 8480-6 Heart Rate 1: 72 bpm Height: 5'4" SpO2: 96% Weight: 01/26/2017 Blood Pressure 1: 146/68 Code: 8480-6 BMI: 26.4 Code: 66021-8 Heart Rate 1: 96 bpm Height: 5'4" SpO2: 97% Weight: 154 lbs 10/19/2016 Blood Pressure 1: 144/76 Code: 8480-6 BMI: 25.8 Code: 83410-5 Heart Rate 1: 68 bpm Height: 5'4" SpO2: 96% Weight: 150 lbs 8 oz 09/22/2016 Blood Pressure 1: 122/80 Code: 8480-6 BMI: 26.1 Code: 68936-4 Heart Rate 1: 111 bpm Height: 5'4" SpO2: 97% Weight: 152 lbs 08/31/2016 Blood Pressure 1: 152/82 Code: 8480-6 BMI: 27.1 Code: 52632-8 Heart Rate 1: 118 bpm Height: 5'4" SpO2: 96% Weight: 158 lbs 08/12/2016 Blood Pressure 1: 146/78 Code: 8480-6 BMI: 26.9 Code: 47901-6 Heart Rate 1: 68 bpm Height: 5'4" SpO2: 97% Weight: 157 lbs 07/28/2016 Blood Pressure 1: 128/64 Code: 8480-6 BMI: 27.1 Code: 25986-8 Heart Rate 1: 63 bpm Height: 5'4" SpO2: 97% Weight: 158 lbs 01/28/2016 Blood Pressure 1: 130/70 Code: 8480-6 BMI: 27.3 Code: 05192-5 Heart Rate 1: 60 bpm Height: 5'4" SpO2: 95% Weight: 159 lbs 07/29/2015 Blood Pressure 1: 136/80 Code: 8480-6 BMI: 28.1 Code: 57715-4 Heart Rate 1: 68 bpm Height: 5'4" SpO2: 96% Weight: 163 lbs 8 oz 03/31/2015 Blood Pressure 1: 138/88 Code: 8480-6 BMI: 27.5 Code: 16081-6 Heart Rate 1: 72 bpm Height: 5'4" Weight: 160 lbs 12/23/2014 Blood Pressure 1: 138/68 Code: 8480-6 BMI: 27.1 Code: 94104-7 Heart Rate 1: 63 bpm Height: 5'4" SpO2: 94% Weight: 158 lbs Functional Status No Functional Status data History of Present Illness Symptom Name Status Result Effective Date Notes Quality chronic 08/21/2018 None Quality intermittent 08/21/2018 [...] data Encounters Encounter Performer Location Codes Date ([id number]) 41992 EST. PATIENT, LEVEL IV Diagnosis: Atrophy of thyroid (acquired)[ICD10: E03.4] Diagnosis: Other iron deficiency anemias[ICD10: D50.8] Diagnosis: Pain in right hip[ICD10: M25.551] Diagnosis: Essential (primary) hypertension[ICD10: I10] Kandi Cabrera MD, [facility] CPT-4: 80510 08/21/2018 ([id number]) 61483 EST. PATIENT, LEVEL IV Diagnosis: Essential (primary) hypertension[ICD10: I10] Diagnosis: Other iron deficiency anemias[ICD10: D50.8] Diagnosis: Tobacco abuse counseling[ICD10: Z71.6] Diagnosis: Chronic atrial fibrillation[ICD10: I48.2] Kandi Cabrera MD, [facility] CPT-4: 95850 07/17/2018 ([id number]) BEHAV CHNG SMOKING 3-10 MIN Diagnosis: [ICD9: ] Diagnosis: [ICD9: ] Diagnosis: [ICD9: ] Diagnosis: [ICD9: ] Kandi Cabrera MD, [facility] CPT-4: 28111 07/17/2018 ([id number]) 82901 EST. PATIENT, LEVEL IV Diagnosis: Other specified anemias[ICD10: D64.89] Diagnosis: Other insomnia[ICD10: G47.09] Diagnosis: Atrophy of thyroid (acquired)[ICD10: E03.4] Diagnosis: Allergic urticaria[ICD10: L50.0] Kandi Cabrera MD, [facility] CPT-4: 69176 06/05/2018 ([id number]) 83169 EST. PATIENT, LEVEL IV Diagnosis: Essential (primary) hypertension[ICD10: I10] Diagnosis: Nonrheumatic aortic (valve) stenosis[ICD10: I35.0] Diagnosis: Atrophy of thyroid (acquired)[ICD10: E03.4] Diagnosis: Chronic atrial fibrillation[ICD10: I48.2] Kandi Cabrera MD, [facility] CPT-4: 77096 04/03/2018 ([id number]) 21049 EST. PATIENT, LEVEL IV Diagnosis: Essential (primary) hypertension[ICD10: I10] Diagnosis: Chronic atrial fibrillation[ICD10: I48.2] Diagnosis: Nonrheumatic aortic (valve) stenosis[ICD10: I35.0] Diagnosis: Age-related osteoporosis without current pathological fracture[ICD10: M81.0] Kandi Cabrera MD, [facility] CPT-4: 13009 03/06/2018 [id number] EST. PATIENT, LEVEL III Diagnosis: Low back pain[ICD10: M54.5] Diagnosis: Dysuria[ICD10: R30.0] Diagnosis: Gastro-esophageal reflux disease without esophagitis[ICD10: K21.9] Payton Cabrera MD, [facility] CPT-4: 61489 02/22/2018 ([id number]) 10461 EST. PATIENT, LEVEL III Diagnosis: Atrophy of thyroid (acquired)[ICD10: E03.4] Diagnosis: Other iron deficiency anemias[ICD10: D50.8] Diagnosis: Epigastric pain[ICD10: R10.13] Kandi Cabrera MD [facility] CPT-4: 16672 12/13/2017 ([id number]) 84014 EST. PATIENT, LEVEL IV Diagnosis: Diverticulitis of large intestine without perforation or abscess without bleeding[ICD10: K57.32] Kandi Cabrera MD, [facility] CPT-4: 56011 11/29/2017 ([id number]) 52895 EST. PATIENT, LEVEL IV Diagnosis: Atrophy of thyroid (acquired)[ICD10: E03.4] Diagnosis: Other iron deficiency anemias[ICD10: D50.8] Diagnosis: Epigastric pain[ICD10: R10.13] Diagnosis: Right lower quadrant pain[ICD10: R10.31] Diagnosis: Left lower quadrant pain[ICD10: R10.32] Kandi aCbrera MD [facility] CPT-4: 57798 10/27/2017 63111 EST. PATIENT, LEVEL IV Diagnosis: Atrophy of thyroid (acquired)[ICD10: E03.4] Diagnosis: Other iron deficiency anemias[ICD10: D50.8] Diagnosis: Essential (primary) hypertension[ICD10: I10] Diagnosis: Gastro-esophageal reflux disease without esophagitis[ICD10: K21.9] Payton Cabrera MD, [facility] CPT-4: 91998 07/26/2017 ([id number]) 80327 EST. PATIENT, LEVEL IV Diagnosis: Other iron deficiency anemias[ICD10: D50.8] Diagnosis: Atrophy of thyroid (acquired)[ICD10: E03.4] Diagnosis: Tobacco use[ICD10: Z72.0] Diagnosis: Essential (primary) hypertension[ICD10: I10] Diagnosis: Low back pain[ICD10: M54.5] Kandi Cabrera MD [facility] CPT-4: 66992 05/26/2017 ([id number]) 29212 EST. PATIENT, LEVEL IV Diagnosis: Shortness of breath[ICD10: R06.02] Diagnosis: Tobacco use[ICD10: Z72.0] Diagnosis: Chronic atrial fibrillation[ICD10: I48.2] Kandi Cabrera MD [facility] CPT-4: 86045 04/11/2017 ([id number]) 42259 EST. PATIENT, LEVEL III Diagnosis: Unsteadiness on feet[ICD10: R26.81] Diagnosis: Tobacco use[ICD10: Z72.0] Kandi Cabrera MD [facility] CPT-4: 10563 02/07/2017 ([id number]) 81950 EST. PATIENT, LEVEL IV Diagnosis: Cough[ICD10: R05] Diagnosis: Essential (primary) hypertension[ICD10: I10] Diagnosis: Chronic atrial fibrillation[ICD10: I48.2] Diagnosis: Unsteadiness on feet[ICD10: R26.81] Kandi Cabrera MD, [facility] CPT- 4: 19598 01/26/2017 ([id number]) 36159 EST. PATIENT, LEVEL IV Diagnosis: Essential (primary) hypertension[ICD10: I10] Diagnosis: Atrophy of thyroid (acquired)[ICD10: E03.4] Diagnosis: Tobacco use[ICD10: Z72.0] Diagnosis: Chronic atrial fibrillation[ICD10: I48.2] Diagnosis: Mixed hyperlipidemia[ICD10: E78.2] Kandi Cabrera MD [facility] CPT- 4: 66032 10/19/2016 ([id number]) 94746 EST. PATIENT, LEVEL IV Diagnosis: Atrophy of thyroid (acquired)[ICD10: E03.4] Diagnosis: Mixed hyperlipidemia[ICD10: E78.2] Diagnosis: Essential (primary) hypertension[ICD10: I10] Kandi Cabrera MD, [facility] CPT-4: 15791 09/22/2016 ([id number]) 09815 EST. PATIENT, LEVEL IV Diagnosis: Essential (primary) hypertension[ICD10: I10] Diagnosis: Atrophy of thyroid (acquired)[ICD10: E03.4] Diagnosis: Chronic atrial fibrillation[ICD10: I48.2] Kandi Cabrera MD, [facility] CPT-4: 93998 08/31/2016 ([id number]) 00536 EST. PATIENT, LEVEL III Diagnosis: Low back pain[ICD10: M54.5] Diagnosis: Sacroiliitis, not elsewhere classified[ICD10: M46.1] Janeen Cabrera MD, [facility] CPT-4: 56434 08/12/2016 ([id number]) 65076 EST. PATIENT, LEVEL IV Diagnosis: Mixed hyperlipidemia[ICD10: E78.2] Diagnosis: Essential (primary) hypertension[ICD10: I10] Diagnosis: Atrophy of thyroid (acquired)[ICD10: E03.4] Kandi Cabrera MD, [facility] CPT-4: 82107 07/28/2016 ([id number]) 62243 EST. PATIENT, LEVEL IV Diagnosis: Hypothyroidism, unspecified[ICD10: E03.9] Diagnosis: Essential (primary) hypertension[ICD10: I10] Diagnosis: Mixed hyperlipidemia[ICD10: E78.2] Diagnosis: Cellulitis of left lower limb[ICD10: L03.116] Diagnosis: Encounter for immunization[ICD10: Z23] Kandi Cabrera MD, [facility] CPT-4: 90369 01/28/2016 ([id number]) 93814 EST. PATIENT, LEVEL IV Diagnosis: Essential (primary) hypertension[ICD10: I10] Diagnosis: Hypothyroidism, unspecified[ICD10: E03.9] Diagnosis: Diarrhea, unspecified[ICD10: R19.7] Diagnosis: Tobacco use[ICD10: Z72.0] Diagnosis: Tobacco abuse counseling[ICD10: Z71.6] Diagnosis: Other obesity due to excess calories[ICD10: E66.09] Kandi Cabrera MD, [facility] CPT-4: 53812 07/29/2015 ([id number]) 88509 EST. PATIENT, LEVEL IV Diagnosis: Essential (primary) hypertension[ICD10: I10] Diagnosis: Hypothyroidism, unspecified[ICD10: E03.9] Diagnosis: Actinic keratosis[ICD10: L57.0] [facility] CPT-4: 48946 03/31/2015 ([id number]) OFFICE VISIT, NEW - LEVEL 4 Diagnosis: ESSENTIAL HYPERTENSION[ICD9: 401.9] Diagnosis: HYPOTHYROIDISM[ICD9: 244.9] Diagnosis: HYPERLIPIDEMIA[ICD9: 272.4] Diagnosis: Osteoporosis[ICD9: 733.00] Diagnosis: OSTEOARTH NOS-UNSPEC[ICD9: 715.90] Diagnosis: Sacroiliitis[ICD9: 720.2] [facility] CPT-4: 07863 12/23/2014 Plan of Care Planned Activity Notes [...] valve replacement. 08/21/2018 Appointment: Kandi Cabrera WPtel: [address] [place], [place] [address] (15 min) Moderate 08/21/2018 Patient Education: Patient [...] cardiovascular status. 07/17/2018 Appointment: Kandi Cabrera WPtel: [facility] (15 min) Moderate 07/17/2018 Patient Education: Patient Medication Summary Completed 07/17/2018 Patient Education: Hypertension Completed 07/17/2018 Appointment: Kandi Cabrera WPtel: [facility] (15 min) Moderate 07/11/2018 Visit Plan: Hypothyroidism [...] on hydroxyzine. 06/05/2018 Appointment: Kandi Cabrera WPtel: [facility] (15 min) Moderate 06/05/2018 Patient Education: Patient [...] Addiction Completed 05/05/2018 Appointment: Kandi Cabrera WPtel: [address] [place], [place] [address] [place] (15 min) Moderate 04/11/2018 Visit Plan: Hypertension [...] call if not improving. 04/03/2018 Appointment: Kandi Cabrear WPtel: [address] [place], [place] [address] [place] (15 min) Moderate 04/03/2018 Patient Education: [...] a conversation about surgical intervention with her Standards Analyst. 03/06/2018 Appointment: [phone] [facility] (15 min) Moderate 03/06/2018 Patient Education: [...] not improving. 02/22/2018 Appointment: Payton Leon WPtel: [facility] (15 min) Moderate 02/22/2018 Patient Education: Patient Medication Summary Completed 02/22/2018 Patient Education: Back Pain Completed 02/22/2018 Visit Plan: Diarrhea - improved - pt advised to avoid seeds, nuts, popcorn, or any other food which has been proven to upset the pt's stomach. 12/13/2017 Appointment: Kandi Cabrera WPtel: [facility] [place] (15 min) Moderate 12/13/2017 Patient Education: Patient Medication Summary Completed 12/13/2017 Visit Plan: Diverticulitis - rx for antibiotic sent to pt's pharmacy - pt advised to avoid seeds, nuts, popcorn, or any other food which has been proven to upset the pt's stomach. 11/29/2017 Appointment: Kandi Cabrera WPtel: [phone] [facility] [place] (15 min) Moderate 11/29/2017 Patient Education: Patient Medication Summary Completed 11/29/2017 Appointment: [facility] [phone] [facility] (15 min) Moderate 11/24/2017 Visit Plan: Abdominal [...] days 10/27/2017 Appointment: Kandi Cabrera WPtel: [phone] [facility] (15 min) Moderate 10/27/2017 Patient Education: Patient [...] improving. 07/26/2017 Appointment: Payton Leon WPtel: [phone] [facility] [place] (30 min) Complex 07/26/2017 Patient Education: Patient Medication Summary Completed 07/26/2017 Care Plan: Iron Pending 07/26/2017 Care Plan: Referral Order SNOMED-CT : [id number] Pending 07/26/2017 Visit Plan: Hypertension - well [...] recommended. 05/26/2017 Appointment: [facility]el[facility] [phone] [facility] (15 min) Moderate 05/26/2017 Patient Education: Patient Medication Summary Completed 05/26/2017 Patient Education: Patient Medication Summary Completed 05/19/2017 Care Plan: Iron Pending 05/19/2017 Visit Plan: Dyspnea on Exertion - uncontrolled - I have recommended pt to have Pulmonary function studies as well as a referral back to her Standards Analyst - Dr. Hanna - I suspect she [...] of cigarettes". 04/11/2017 Appointment: [facility]el[facility] [phone] [facility] (15 min) Moderate 04/11/2017 Patient Education: Patient Medication Summary Completed 04/11/2017 Patient Education: Smoking and Tobacco Addiction Completed 04/11/2017 Care Plan: Referral Order SNOMED-CT : [id number] Pending 04/11/2017 Appointment: Kandi Cabrera WPtel: [phone] [facility] (15 min) Moderate 02/14/2017 Appointment: Injection 02/09/2017 Referral: [facility] W[facility]el: [address] Patient informed. Completed 02/09/2017 Patient Education: Patient Medication Summary Completed 02/09/2017 Patient Education: Smoking and Tobacco Addiction Completed 02/09/2017 Visit Plan: Tobacco abuse - chronic condition for this patient. Patient has been counseled about need to stop smoking due to the negative health affects. 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 Rx for wellbutrin 75mg 1/2 pill bid. Gait instability - referral to [facility] for gait instability 02/07/2017 Appointment: Kandi Cabrera WPtel: [phone] [facility] (15 min) Moderate 02/07/2017 Patient Education: Patient Medication Summary Completed 02/07/2017 Patient Education: Smoking and Tobacco Addiction Completed 02/07/2017 Care Plan: Referral Order SNOMED-CT : [id number] Pending 02/07/2017 Visit Plan: Cough - pt [...] uncontrolled. 01/26/2017 Appointment: [facility]el[facility] [phone] [facility] (15 min) Moderate 01/26/2017 Patient Education: [...] week. 10/19/2016 Appointment: [facility]el[facility] [phone] [facility] (15 min) Moderate 10/19/2016 Patient Education: Patient Medication Summary Completed 10/19/2016 Patient Education: Smoking and Tobacco Addiction Completed 10/19/2016 Patient Education: Hypertension Completed 10/19/2016 Visit Plan: Atrial Fibrillation - pt on chronic anticoagulation and is not optimally rate controlled. Pt is to see her outboard motors experimental mechanic tomorrow, will discuss with him her plans [...] of control. 09/22/2016 Appointment: Kandi Cabrera WPtel: [facility] (15 min) Moderate 09/22/2016 Patient Education: [...] q 3 months or q 6 m [facility] based on previous levels of control. 08/31/2016 Appointment: Kandi Cabrera WPtel: [facility] (15 min) Moderate 08/31/2016 Patient Education: Patient Medication Summary Completed 08/31/2016 Patient Education: Smoking and Tobacco Addiction Completed 08/31/2016 Patient Education: Hypertension Completed 08/31/2016 Visit Plan: Sacroiliitis -kenalog injection today in the office- tylenol as directed-heat as directed-xray lumbar spine. Pt is to call if the symptoms do not improve or if they worsen. 08/12/2016 Appointment: Janeen Marsh [facility]el[facility] (30 min) Complex 08/12/2016 Patient Education: Patient Medication Summary Completed 08/12/2016 Patient Education: Smoking and Tobacco Addiction Completed 08/12/2016 Appointment: Payton Leon [facility]el[phone] [facility] [facility] - Annual Wellness Visit 07/30/2016 Visit [...] medications. 07/28/2016 Appointment: Kandi Cabrera WPtel[facility] [phone] [facility] (15 min) Moderate 07/28/2016 Patient Education: [...] shot today 01/28/2016 Appointment: Kandi Cabrera WPtel: [facility] (15 min) Moderate 01/28/2016 Patient Education: [...] increase activity 07/29/2015 Appointment: Kandi Cabrera WPtel: [facility] [place] (15 min) Moderate 07/29/2015 Patient [...] of control. A ctinic keratosis - left pentecostalism and left nasal bridge - pt to use efudex on the lesions on the nose and face. 03/31/2015 Appointment: Kandi Cabrera WPtel[facility] [phone] [facility] [place] (15 min) Moderate 03/31/2015 Patient [...] scan, check vitamin D levels. 12/23/2014 Appointment: Janie Cabreray WPtel[facility] [phone] [facility] [place] (S) New Patient 12/23/2014 Patient Education: Patient Medication Summary Completed 12/23/2014 Patient Education: Hypertension Completed 12/23/2014 Care Plan: Referral Order SNOMED-CT : [id number] Ordered 12/23/2014 Referral: External, Ordering Provider Referral Completed Referral: External, Ordering Provider Referral Appointment Requested Referral: Maggi Reaves Referral Initiated [facility] Ref[facility] Appointment Requested Referral: External, Ordering Provider Dr. Hanna's office has already contacted her about an appt scheduled for April 25 at 9:00 AM. Completed Instructions Comment . Hypertension - well controlled - continue [...] to assure normal liver response to medications. Will culture your urine to make sure [...] if the symptoms are not improving. . Hypertension - well controlled [...] a conversation about surgical intervention with her Standards Analyst. . Hypertension - well controlled - continue [...] levels of control. Actinic keratosis - left pentecostalism and left nasal bridge - pt to [...] call if not improving. PROBIOTIC - kathy, [employer], lactobacilus/acidophilis brand probiotic - these can be [...] do not improve or if they worsen. hold the tricor for the next week [...] on Hydroxyzine. Insomnia - start on hydroxyzine. start on the synthroid 137mcg daily - [...] is ready to discuss valve replacement. . Diverticulitis - rx for antibiotic sent to pt's pharmacy - pt advised to avoid seeds, nuts, popcorn, or any other food which has been proven to upset the pt's stomach. . Atrial Fibrillation - pt on chronic anticoagulation and is not optimally rate controlled. Pt is to see her outboard motors experimental mechanic tomorrow, will discuss with him her plans [...] three times daily x 10 days . Dyspnea on Exertion - uncontrolled - I have recommended pt to have Pulmonary function studies as well as a referral back to her Standards Analyst - Dr. Hanna - I suspect she [...] will be completely off of cigarettes". . Medicare Exam - today we discussed [...] DOPA paperwork for health care surrogate. . Cough - pt given rx for [...] if the symptoms are not improving. . Diarrhea - improved - pt advised to avoid seeds, nuts, popcorn, or any other food which has been proven to upset the pt's stomach.
--- OUTSIDE RECORDS SUMMARY | 2018-12-29 13:31 | XMS REPORT | CCD ---
Author Author Kandi Cabrera Organization Kandi Cabrera MD, [facility] Address [address] [place] [address] Phone Care Team Providers Care Radio Assembler Name Role Phone PP Unavailable CCM Unavailable Summary Purpose Interface Exchange Insurance Providers Payer name Policy type / Coverage type Covered republican ID Effective Begin Date Effective End Date [facility] Commercial Insurance [id number] Unknown WPS Medicare Part B Commercial Insurance [id number] 2017 Unknown Family history Father Diagnosis Age [...] Unknown Retired 12/23/[address]: 98243545 Current every day smoker 12/23/2014 Number of years using tobacco Unknown > 50 trying to quit 12/23/2014 Number of cigarettes/day Unknown 10 (Half a pack) 12/23/[address]: 535690804 Never drinks alcohol 12/23/2014 Allergies, Adverse Reactions, Alerts Substance Reaction Codes Entered Date Inactivated Date Status ciprofloxacin RxNorm: 01974 05/05/2018 No Inactive Date Active SULFA(SULFONAMIDE ANTIBIOTICS) [...] Fill Instructions sucralfate 1 gram tablet RxNorm: 032157 1 Tablet(s) PO TID 09/11/2018 11/05/2018 Active diltiazem ER 120 mg capsule,24 hr,extended release RxNorm: 032536 1 Capsule(s) PO daily 08/29/2018 08/23/2019 Active perphenazine-amitriptyline 2 mg-10 mg tablet RxNorm: 955553 2 Tablet(s) PO daily 08/15/2018 11/07/2019 Active PA approved: [id number] 01-33-04-08-15-2019 perphenazine-amitriptyline 2 mg-10 mg tablet RxNorm: 485250 2 Tablet(s) PO daily 08/15/2018 08/14/2018 Inactive PA approved: need 7 days while waiting on mail order perphenazine-amitriptyline 2 mg-10 mg tablet RxNorm: 475556 2 Tablet(s) PO daily 08/04/2018 08/03/2018 Inactive waiting on mail order perphenazine-amitriptyline 2 mg-10 mg tablet RxNorm: 908402 2 Tablet(s) PO daily 08/04/2018 08/03/2018 Inactive perphenazine-amitriptyline 2 mg-10 mg tablet RxNorm: 174453 2 Tablet(s) PO daily 08/04/2018 08/14/2018 Inactive Tricor 145 mg tablet RxNorm: 532466 1 Tablet(s) PO daily 07/17/2018 10/09/2019 Active pantoprazole 40 mg tablet,delayed release RxNorm: 460098 1 Tablet(s) PO daily 07/17/2018 10/09/2019 Active hydroxyzine HCl 25 mg tablet RxNorm: 138304 2 Tablet(s) PO QHS may increase to two pills at hs if allergic reactions are occuring 07/17/2018 11/13/2018 Active Synthroid 100 mcg tablet RxNorm: 466504 1 Tablet(s) PO daily 06/05/2018 08/28/2019 Active hydroxyzine HCl 25 mg tablet RxNorm: 627836 1 Tablet(s) PO QHS may increase to two pills at hs if allergic reactions are occuring 06/05/2018 07/16/2018 Inactive Lasix 20 mg tablet RxNorm: 626715 1 Tablet(s) PO daily as needed not more than one time a day 05/19/2018 09/15/2018 Active prednisone 20 mg tablet RxNorm: 721903 2 Tablet(s) PO daily 02/22/2018 02/26/2018 Inactive Cipro 500 mg tablet RxNorm: 164249 1 Tablet(s) PO BID 02/22/2018 02/28/2018 Inactive potassium chloride ER 10 mEq tablet,extended release RxNorm: 487193 1 Tablet(s) PO UD take on days that you take a lasix pill 02/13/2018 02/07/2019 Active Synthroid 100 mcg tablet RxNorm: 394097 1 Tablet(s) PO daily 02/13/2018 06/04/2018 Inactive simvastatin 20 mg tablet RxNorm: 600440 1 Tablet(s) PO QHS 01/13/2018 01/07/2019 Active metronidazole 500 mg tablet RxNorm: 635045 1 Tablet(s) PO TID 11/29/2017 12/08/2017 Inactive alendronate 70 mg tablet RxNorm: 351638 1 Tablet(s) PO weekly 11/29/2017 03/05/2018 Inactive omeprazole 40 mg capsule,delayed release RxNorm: 032620 1 Capsule(s) PO daily 11/11/2017 07/16/2018 Inactive Flagyl 500 mg tablet RxNorm: 624026 1 Tablet(s) PO TID 10/27/2017 11/05/2017 Inactive fluticasone 50 mcg/actuation nasal spray,suspension RxNorm: 5769560 1 [place] NASAL daily 07/26/2017 No Stop Date Active sucralfate 1 gram tablet RxNorm: 044323 1 Tablet(s) PO TID 07/26/2017 07/20/2018 Inactive Protonix 40 mg tablet,delayed release RxNorm: 382270 1 Tablet(s) PO daily 07/26/2017 10/23/2017 Inactive Tricor 145 mg tablet RxNorm: 208813 1 Tablet(s) PO daily 05/26/2017 05/20/2018 Inactive perphenazine-amitriptyline 2 mg-10 mg tablet RxNorm: 236555 2 Tablet(s) PO daily 05/26/2017 05/20/2018 Inactive bupropion HCl 75 mg tablet RxNorm: 501754 1/2 Tablet(s) PO BID 02/07/2017 05/07/2017 Inactive Eliquis 5 mg tablet RxNorm: 6960902 1 Tablet(s) PO BID 01/26/2017 01/20/2018 Inactive sotalol 80 mg tablet RxNorm: 1709380 1 Tablet(s) PO BID 01/26/2017 04/20/2018 Inactive potassium chloride ER 10 mEq tablet,extended release RxNorm: 444238 1 Tablet(s) PO UD take on days that you take a lasix pill 01/26/2017 01/20/2018 Inactive Synthroid 100 mcg tablet RxNorm: 259771 1 Tablet(s) PO daily 01/26/2017 02/12/2018 Inactive diltiazem ER 240 mg capsule,extended release RxNorm: 744887 1 Capsule(s) PO BID 01/26/2017 05/03/2017 Inactive Lasix 20 mg tablet RxNorm: 669072 1 Tablet(s) PO daily as needed not more than one time a day 01/26/2017 05/25/2017 Inactive simvastatin 20 mg tablet RxNorm: 972733 1 Tablet(s) PO QHS 12/21/2016 12/15/2017 Inactive alendronate 70 mg tablet RxNorm: 510968 1 Tablet(s) PO weekly 12/21/2016 11/28/2017 Inactive omeprazole 40 mg capsule,delayed release RxNorm: 323476 1 Capsule(s) PO daily 10/19/2016 10/12/2017 Inactive metoprolol succinate ER 100 mg tablet,extended release 24 hr RxNorm: 598434 1.5 Tablet(s) PO daily 09/17/2016 10/18/2016 Inactive Dosage increased by Dr. Vazquez potassium chloride ER 10 mEq tablet,extended release RxNorm: 539146 1 Tablet(s) PO UD take on days that you take a lasix pill 08/31/2016 12/28/2016 Inactive Lasix 20 mg tablet RxNorm: 874357 1 Tablet(s) PO daily as needed not more than one time a day 08/31/2016 12/28/2016 Inactive Kenalog 40 mg/mL suspension for injection RxNorm: 4836009 1 Milliliter(s) Inj 08/12/2016 08/12/2016 Inactive Tricor 145 mg tablet RxNorm: 763633 1 Tablet(s) PO daily 05/21/2016 05/15/2017 Inactive atenolol 25 mg tablet RxNorm: 458138 1 Tablet(s) PO daily 05/21/2016 08/30/2016 Inactive sucralfate 1 gram tablet RxNorm: 814421 1 Tablet(s) PO TID 05/21/2016 05/15/2017 Inactive enalapril maleate 10 mg tablet RxNorm: 998048 1 Tablet(s) PO daily 04/26/2016 08/30/2016 Inactive perphenazine-amitriptyline 2 mg-10 mg tablet RxNorm: 936813 2 Tablet(s) PO daily 04/26/2016 04/20/2017 Inactive fluticasone 50 mcg/actuation nasal spray,suspension RxNorm: 7974357 1 [place] NASAL daily 04/26/2016 07/25/2017 Inactive Synthroid 100 mcg tablet RxNorm: 133250 1 Tablet(s) PO daily 02/09/2016 01/25/2017 Inactive Synthroid 100 mcg tablet RxNorm: 351261 1 Tablet(s) PO daily 02/09/2016 02/08/2016 Inactive Keflex 500 mg capsule RxNorm: 065995 1 Capsule(s) PO TID 01/28/2016 02/01/2016 Inactive hydrochlorothiazide 25 mg tablet RxNorm: 169012 TAKE 1 TABLET DAILY 01/07/2016 08/30/2016 Inactive enalapril maleate 10 mg tablet RxNorm: 506622 1 Tablet(s) PO daily 12/26/2015 04/25/2016 Inactive hydrochlorothiazide 25 mg tablet RxNorm: 564553 1 Tablet(s) PO daily 12/08/2015 08/30/2016 Inactive omeprazole 40 mg capsule,delayed release RxNorm: 717068 1 Capsule(s) PO daily 12/08/2015 10/18/2016 Inactive simvastatin 20 mg tablet RxNorm: 079691 1 Tablet(s) PO QHS 11/14/2015 11/07/2016 Inactive alendronate 70 mg tablet RxNorm: 432102 1 Tablet(s) PO weekly 10/31/2015 10/24/2016 Inactive Synthroid 112 mcg tablet RxNorm: 691697 1 Tablet(s) PO daily 07/16/2015 02/08/2016 Inactive sucralfate 1 gram tablet RxNorm: 206608 1 Tablet(s) PO TID 06/17/2015 05/20/2016 Inactive perphenazine-amitriptyline 2 mg-10 mg tablet RxNorm: 746487 2 Tablet(s) PO daily 06/17/2015 04/25/2016 Inactive fluticasone 50 mcg/actuation nasal spray,suspension RxNorm: 8222450 1 [place] NASAL daily 06/17/2015 04/25/2016 Inactive fluorouracil 5 % topical cream RxNorm: 756921 APPLY 1 APPLICATION TOPICALLY TWO TIMES A DAY 06/16/2015 06/25/2015 Inactive fluticasone 50 mcg/actuation nasal spray,suspension RxNorm: 688217 1 [place] NASAL daily 06/12/2015 06/16/2015 Inactive atenolol 25 mg tablet RxNorm: 511517 1 Tablet(s) PO daily 05/14/2015 05/07/2016 Inactive Tricor 145 mg tablet RxNorm: 398309 1 Tablet(s) PO daily 04/23/2015 04/16/2016 Inactive Synthroid 125 mcg tablet RxNorm: 655491 1 Tablet(s) PO daily 03/31/2015 07/15/2015 Inactive fluorouracil 5 % topical cream RxNorm: 508455 1 Application TOP BID 03/31/2015 04/09/2015 Inactive Synthroid 137 mcg tablet RxNorm: 174161 1 Tablet(s) PO daily 12/25/2014 12/24/2014 Inactive Synthroid 137 mcg tablet RxNorm: 668931 1 Tablet(s) PO daily 12/25/2014 03/30/2015 Inactive Voltaren 1 % topical gel RxNorm: 749390 4 Gram(s) TOP QID 12/23/2014 04/21/2015 Inactive alendronate 70 mg tablet RxNorm: 996625 1 Tablet(s) PO weekly 12/23/2014 12/22/2014 Inactive alendronate 70 mg tablet RxNorm: 851308 1 Tablet(s) PO weekly 12/23/2014 10/30/2015 Inactive Fosamax 70 mg tablet RxNorm: 090170 1 Tablet(s) PO weekly QW 12/23/2014 01/27/2016 Inactive omeprazole 40 mg capsule,delayed release RxNorm: 321211 1 Capsule(s) PO daily 12/18/2014 12/07/2015 Inactive omeprazole 40 mg capsule,delayed release RxNorm: 677650 1 Capsule(s) PO daily 12/18/2014 12/17/2014 Inactive hydrochlorothiazide 25 mg tablet RxNorm: 002042 1 Tablet(s) PO daily 12/18/2014 12/17/2014 Inactive hydrochlorothiazide 25 mg tablet RxNorm: 692902 1 Tablet(s) PO daily 12/18/2014 12/07/2015 Inactive L-Lysine 1,000 mg tablet RxNorm: 151883 1 Tablet(s) PO daily No Start Date Active folic acid 400 mcg tablet RxNorm: 842267 1 Tablet(s) PO daily No Start Date Active B12 1000 mcg RxNorm: 1/2 Tablet(s) PO daily No Start Date Active Vitamin D3 1,000 unit chewable tablet RxNorm: 812853 1 Tablet(s) PO daily No Start Date Active metoprolol succinate ER 100 mg tablet,extended release 24 hr RxNorm: 621707 1 Tablet(s) PO daily No Start Date 09/16/2016 Inactive enalapril maleate 10 mg tablet RxNorm: 327569 1 Tablet(s) PO daily No Start Date 12/25/2015 Inactive perphenazine-amitriptyline 2 mg-10 mg tablet RxNorm: 298831 2 Tablet(s) PO daily No Start Date 06/16/2015 Inactive sucralfate 1 gram tablet RxNorm: 646684 1 Tablet(s) PO TID No Start Date 06/16/2015 Inactive hydrochlorothiazide 25 mg tablet RxNorm: 519216 1 Tablet(s) PO daily No Start Date 08/30/2016 Inactive vitamin E (dl, acetate) 400 unit capsule RxNorm: 201192 1 Capsule(s) PO daily No Start Date 03/05/2018 Inactive sotalol 80 mg tablet RxNorm: 2095447 1 Tablet(s) PO BID No Start Date 01/25/2017 Inactive Synthroid 150 mcg tablet RxNorm: 775422 1 Tablet(s) PO daily No Start Date 12/24/2014 Inactive diltiazem ER 120 mg capsule,24 hr,extended release RxNorm: 362188 1 Capsule(s) PO daily No Start Date 08/28/2018 Inactive simvastatin 20 mg tablet RxNorm: 870026 1 Tablet(s) PO daily No Start Date 11/13/2015 Inactive Vitamin C RxNorm: PO 1000mg qd No Start Date 03/05/2018 Inactive Fosamax 70 mg tablet RxNorm: 319400 1 Tablet(s) PO weekly No Start Date 12/22/2014 Inactive Tricor 145 mg tablet RxNorm: 783032 1 Tablet(s) PO daily No Start Date 04/22/2015 Inactive diltiazem ER 180 mg capsule,24 hr,extended release RxNorm: 646994 1 Capsule(s) PO daily No Start Date 03/05/2018 Inactive diltiazem 120 mg tablet RxNorm: 352092 1 Tablet(s) PO daily No Start Date 08/29/2018 Inactive diltiazem ER 240 mg capsule,extended release RxNorm: 498794 1 Capsule(s) PO BID No Start Date 01/25/2017 Inactive Eliquis 5 mg tablet RxNorm: 2909641 1 Tablet(s) PO BID No Start Date 01/25/2017 Inactive fluticasone 50 mcg/actuation nasal spray,suspension RxNorm: 140505 1 [place] NASAL daily No Start Date 06/11/2015 Inactive atenolol 25 mg tablet RxNorm: 786028 1 Tablet(s) PO daily No Start Date 05/13/2015 Inactive Medication Administered Medication Codes Instructions Start Date Status Kenalog 40 mg/mL suspension for injection RxNorm: 8621054 1Milliliter 08/12/2016 No longer Active Immunizations Vaccine [...] Observation Code Item Item Code Result Date Tsh Ord6 TSH (3rd IS) 0.97 uIU/mL 08/14/2018 Tibc Ord40 Iron 90 ug/dl 08/14/2018 Tibc Ord40 UIBC 380 ug/dL 08/14/2018 Tibc Ord40 TIBC 470 ug/dL 08/14/2018 Tibc Ord40 Fe-%Sat 19.1 % 08/14/2018 Comp Metabolic Sta075 NA 136 mEq/L 08/14/2018 Comp Metabolic Eaf594 K 4.3 mEq/L 08/14/2018 Comp Metabolic Teu633 CL 100 mEq/L 08/14/2018 Comp Metabolic Nvm183 CO2 28.0 mEq/L 08/14/2018 Comp Metabolic Rox716 ANION GAP 12 08/14/2018 Comp Metabolic Gzw350 GLUCOSE 111 mg/dL 08/14/2018 Comp Metabolic Rrw888 Creat 0.9 mg/dL 08/14/2018 Comp Metabolic Vho424 eGFR 66 ml/min/1.73m2 08/14/2018 Comp Metabolic Ora531 BUN 22 mg/dL 08/14/2018 Comp Metabolic Lnm587 B/C Ratio 25.3 Ratio 08/14/2018 Comp Metabolic Zvy364 CALCIUM 10.1 mg/dL 08/14/2018 Comp Metabolic Pwy798 ALK PHOS 45 U/L 08/14/2018 Comp Metabolic Hzt564 AST(SGOT) 16 U/L 08/14/2018 Comp Metabolic Dfm371 ALT(SGPT) 7 U/L 08/14/2018 Comp Metabolic Ogb153 BILI T 0.4 mg/dL 08/14/2018 Comp Metabolic Mpa645 ALBUMIN 4.0 g/dL 08/14/2018 Comp Metabolic Frs054 TPRO 7.0 g/dL 08/14/2018 Comp Metabolic Ykf535 GLOB 3.0 g/dL 08/14/2018 Comp Metabolic Krs648 A/G Ratio 1.3 Ratio 08/14/2018 Comp Metabolic Hgl960 Osmo 276 mOsmo 08/14/2018 Cbc With Differential [...] 26.2 pg 08/14/2018 Cbc With Differential Ord2 [place]% 9.1 % 08/14/2018 Cbc With Differential Ord2 Eos% 1.8 % 08/14/2018 Cbc With Differential Ord2 MCHC 31.0 pg 08/14/2018 Cbc With Differential Ord2 PLT 293 K/ul 08/14/2018 Cbc With Differential Ord2 Baso% 0.5 % 08/14/2018 Cbc With Differential Ord2 Neut ABS# 4.34 K/ul 08/14/2018 Cbc With Differential Ord2 Lymph ABS# 0.93 K/ul 08/14/2018 Cbc With Differential Ord2 [place] ABS# 0.5 K/ul 08/14/2018 Cbc With Differential Ord2 Eos ABS# 0.1 K/ul 08/14/2018 Cbc With Differential Ord2 Baso ABS# 0.0 K/ul 08/14/2018 Free T4 Aeb900 FREE T4 1.00 ng/dL 08/14/2018 Tibc Ord40 [...] 24.9 pg 06/21/2018 Cbc With Differential Ord2 [place]% 15.0 % 06/21/2018 Cbc With Differential Ord2 [...] 1.35 K/ul 06/21/2018 Cbc With Differential Ord2 [place] ABS# 0.9 K/ul 06/21/2018 Cbc With Differential [...] 24.9 pg 06/01/2018 Cbc With Differential Ord2 [place]% 12.8 % 06/01/2018 Cbc With Differential Ord2 [...] 0.81 K/ul 06/01/2018 Cbc With Differential Ord2 [place] ABS# 0.7 K/ul 06/01/2018 Cbc With Differential [...] 29.9 pg 03/17/2018 Cbc With Differential Ord2 [place]% 13.3 % 03/17/2018 Cbc With Differential Ord2 [...] 0.90 K/ul 03/17/2018 Cbc With Differential Ord2 [place] ABS# 0.8 K/ul 03/17/2018 Cbc With Differential [...] 30.2 pg 02/22/2018 Cbc With Differential Ord2 [place]% 11.5 % 02/22/2018 Cbc With Differential Ord2 [...] 0.86 K/ul 02/22/2018 Cbc With Differential Ord2 [place] ABS# 0.7 K/ul 02/22/2018 Cbc With Differential Ord2 Eos ABS# 0.2 K/ul 02/22/2018 Cbc With Differential Ord2 Baso ABS# 0.1 K/ul 02/22/2018 Tsh Ord6 TSH (3rd IS) 0.66 uIU/mL 02/22/2018 Free T4 Kyu000 FREE T4 1.22 ng/dL 02/22/2018 Comp Metabolic Bsr999 NA 136 mEq/L 02/22/2018 Comp Metabolic Ryi009 K 4.4 mEq/L 02/22/2018 Comp Metabolic Wrb815 CL 102 mEq/L 02/22/2018 Comp Metabolic Eks695 CO2 23.0 mEq/L 02/22/2018 Comp Metabolic Uwb075 ANION GAP 15 02/22/2018 Comp Metabolic Jpb131 GLUCOSE 94 mg/dL 02/22/2018 Comp Metabolic Yuq604 Creat 1.2 mg/dL 02/22/2018 Comp Metabolic Utl940 eGFR 46 ml/min/1.73m2 02/22/2018 Comp Metabolic Vum937 BUN 31 mg/dL 02/22/2018 Comp Metabolic Mpk655 B/C Ratio 25.8 Ratio 02/22/2018 Comp Metabolic Gjp935 CALCIUM 9.2 mg/dL 02/22/2018 Comp Metabolic Xuu497 ALK PHOS 34 U/L 02/22/2018 Comp Metabolic Rod956 AST(SGOT) 18 U/L 02/22/2018 Comp Metabolic Zkm674 ALT(SGPT) 8 U/L 02/22/2018 Comp Metabolic Vij461 BILI T 0.4 mg/dL 02/22/2018 Comp Metabolic Ont722 ALBUMIN 3.6 g/dL 02/22/2018 Comp Metabolic Geg504 TPRO 6.2 g/dL 02/22/2018 Comp Metabolic Swl604 GLOB 2.6 g/dL 02/22/2018 Comp Metabolic Pqu894 A/G Ratio 1.4 Ratio 02/22/2018 Comp Metabolic Qcj514 Osmo 278 mOsmo 02/22/2018 Free T4 Gwn859 FREE T4 1.11 ng/dL 10/27/2017 Lipid Ord30 [...] 30.7 pg 10/27/2017 Cbc With Differential Ord2 [place]% 11.3 % 10/27/2017 Cbc With Differential Ord2 [...] 1.16 K/ul 10/27/2017 Cbc With Differential Ord2 [place] ABS# 0.6 K/ul 10/27/2017 Cbc With Differential Ord2 Eos ABS# 0.2 K/ul 10/27/2017 Cbc With Differential Ord2 Baso ABS# 0.0 K/ul 10/27/2017 Comp Metabolic Cse303 NA 135 mEq/L 10/27/2017 Comp Metabolic Vlh016 K 4.7 mEq/L 10/27/2017 Comp Metabolic Eso664 CL 101 mEq/L 10/27/2017 Comp Metabolic Yjz540 CO2 23.0 mEq/L 10/27/2017 Comp Metabolic Awx845 ANION GAP 16 10/27/2017 Comp Metabolic Lfe521 GLUCOSE 84 mg/dL 10/27/2017 Comp Metabolic Wud091 Creat 1.2 mg/dL 10/27/2017 Comp Metabolic Izl611 eGFR 46 ml/min/1.73m2 10/27/2017 Comp Metabolic Ulp595 BUN 30 mg/dL 10/27/2017 Comp Metabolic Fgu166 B/C Ratio 25.2 Ratio 10/27/2017 Comp Metabolic Xnv358 CALCIUM 9.4 mg/dL 10/27/2017 Comp Metabolic Wzw773 ALK PHOS 30 U/L 10/27/2017 Comp Metabolic Quw584 AST(SGOT) 25 U/L 10/27/2017 Comp Metabolic Yvu654 ALT(SGPT) 12 U/L 10/27/2017 Comp Metabolic Pai916 BILI T 0.5 mg/dL 10/27/2017 Comp Metabolic Pfy299 ALBUMIN 3.7 g/dL 10/27/2017 Comp Metabolic Mcr248 TPRO 6.5 g/dL 10/27/2017 Comp Metabolic Wql377 GLOB 2.8 g/dL 10/27/2017 Comp Metabolic Yxn392 A/G Ratio 1.3 Ratio 10/27/2017 Comp Metabolic Bfr170 Osmo 275 mOsmo 10/27/2017 Hgb & Hct Ord65 HGB 12.2 g/dl 07/29/2017 Hgb & Hct Ord65 HCT 38.8 % 07/29/2017 Tibc Ord40 Iron 79 ug/dl 07/26/2017 Tibc Ord40 UIBC 380 ug/dL 07/26/2017 Tibc Ord40 TIBC 459 ug/dL 07/26/2017 Tibc Ord40 Fe-%Sat 17.2 % 07/26/2017 Tsh Ord6 TSH (3rd IS) 0.46 uIU/mL 07/26/2017 Ferritin Ord22 FERRITIN 83.6 ng/mL 07/26/2017 Free T4 Iai642 FREE T4 1.00 ng/dL 07/26/2017 Tibc Ord40 [...] 31.0 pg 08/02/2016 Cbc With Differential Ord2 [place]% 9.4 % 08/02/2016 Cbc With Differential Ord2 [...] 1.44 K/ul 08/02/2016 Cbc With Differential Ord2 [place] ABS# 0.7 K/ul 08/02/2016 Cbc With Differential Ord2 Eos ABS# 0.3 K/ul 08/02/2016 Cbc With Differential Ord2 Baso ABS# 0.1 K/ul 08/02/2016 Lipid Ord30 CHOL 142 mg/dL 08/02/2016 Lipid Ord30 HDL 40.0 mg/dl 08/02/2016 Lipid Ord30 TRIG 169 mg/dL 08/02/2016 Lipid Ord30 LDL 68 mg/dL 08/02/2016 Lipid Ord30 C/HDL 3.6 Ratio 08/02/2016 Comp Metabolic Gsg604 NA 139 mEq/L 08/02/2016 Comp Metabolic Ctt915 K 5.2 mEq/L 08/02/2016 Comp Metabolic Uvd922 CL 108 mEq/L 08/02/2016 Comp Metabolic Lnr816 CO2 22.0 mEq/L 08/02/2016 Comp Metabolic Qat594 ANION GAP 14 08/02/2016 Comp Metabolic Lbu806 GLUCOSE 103 mg/dL 08/02/2016 Comp Metabolic Zun171 Creat 1.1 mg/dL 08/02/2016 Comp Metabolic Gop156 eGFR 54 ml/min/1.73m2 08/02/2016 Comp Metabolic Vxz285 BUN 26 mg/dL 08/02/2016 Comp Metabolic Beu239 B/C Ratio 24.8 Ratio 08/02/2016 Comp Metabolic Ezn323 CALCIUM 9.4 mg/dL 08/02/2016 Comp Metabolic Vga566 ALK PHOS 41 U/L 08/02/2016 Comp Metabolic Qqn591 AST(SGOT) 18 U/L 08/02/2016 Comp Metabolic Nyq764 ALT(SGPT) 10 U/L 08/02/2016 Comp Metabolic Jvh702 BILI T 0.3 mg/dL 08/02/2016 Comp Metabolic Kuf175 ALBUMIN 3.7 g/dL 08/02/2016 Comp Metabolic Bje734 TPRO 6.5 g/dL 08/02/2016 Comp Metabolic Dhv502 GLOB 2.8 g/dL 08/02/2016 Comp Metabolic Yfz474 A/G Ratio 1.3 Ratio 08/02/2016 Comp Metabolic Hyx876 Osmo 283 mOsmo 08/02/2016 Free T4 Ktf260 FREE T4 1.08 ng/dL 08/02/2016 Tsh Ord6 hTSH II 0.35 uIU/mL 05/13/2016 Free T4 Gxn128 FREE T4 0.78 ng/dL 05/13/2016 Free T4 Bgu510 FREE T4 1.13 ng/dL 01/28/2016 Tsh Ord6 [...] 30.2 pg 07/14/2015 Cbc With Differential Ord2 [place]% 9.1 % 07/14/2015 Cbc With Differential Ord2 [...] 1.80 K/ul 07/14/2015 Cbc With Differential Ord2 [place] ABS# 0.7 K/ul 07/14/2015 Cbc With Differential [...] Ord30 C/HDL 3.0 Ratio 07/14/2015 Comp Metabolic Gaj609 NA 136 mEq/L 07/14/2015 Comp Metabolic Vwg302 K 4.4 mEq/L 07/14/2015 Comp Metabolic Jbt065 CL 101 mEq/L 07/14/2015 Comp Metabolic Gag820 CO2 27.0 mEq/L 07/14/2015 Comp Metabolic Xey426 ANION GAP 12 07/14/2015 Comp Metabolic Pst688 GLUCOSE 97 mg/dL 07/14/2015 Comp Metabolic Ion307 Creat 1.0 mg/dL 07/14/2015 Comp Metabolic Hva694 eGFR 56 ml/min/1.73m2 07/14/2015 Comp Metabolic Jep688 BUN 27 mg/dL 07/14/2015 Comp Metabolic Mus168 B/C Ratio 26.7 Ratio 07/14/2015 Comp Metabolic Kxi952 CALCIUM 9.3 mg/dL 07/14/2015 Comp Metabolic Evw359 ALK PHOS 33 U/L 07/14/2015 Comp Metabolic Iuc027 AST(SGOT) 14 U/L 07/14/2015 Comp Metabolic Amc027 ALT(SGPT) 8 U/L 07/14/2015 Comp Metabolic Wmo469 BILI T 0.4 mg/dL 07/14/2015 Comp Metabolic Buv655 ALBUMIN 3.8 g/dL 07/14/2015 Comp Metabolic Ijn782 TPRO 6.6 g/dL 07/14/2015 Comp Metabolic Qgg664 GLOB 2.8 g/dL 07/14/2015 Comp Metabolic Oez082 A/G Ratio 1.4 Ratio 07/14/2015 Comp Metabolic Mdk101 Osmo 277 mOsmo 07/14/2015 Tsh Ord6 hTSH II 0.23 uIU/mL 07/14/2015 Free T4 Vsh447 FREE T4 1.19 ng/dL 07/14/2015 Cbc With [...] Ord30 C/HDL 3.4 Ratio 03/26/2015 Comp Metabolic Xea844 NA 135 mEq/L 03/26/2015 Comp Metabolic Wsk241 K 5.0 mEq/L 03/26/2015 Comp Metabolic Ezo996 CL 99 mEq/L 03/26/2015 Comp Metabolic Qop373 CO2 27.0 mEq/L 03/26/2015 Comp Metabolic Nin502 ANION GAP 14 03/26/2015 Comp Metabolic Gwi935 GLUCOSE 88 mg/dL 03/26/2015 Comp Metabolic Hka442 Creat 1.1 mg/dL 03/26/2015 Comp Metabolic Pej230 eGFR 50 ml/min/1.73m2 03/26/2015 Comp Metabolic Zrc993 BUN 27 mg/dL 03/26/2015 Comp Metabolic Aup597 B/C Ratio 24.1 Ratio 03/26/2015 Comp Metabolic Ckt929 CALCIUM 9.9 mg/dL 03/26/2015 Comp Metabolic Ztx643 ALK PHOS 30 U/L 03/26/2015 Comp Metabolic Vpz262 AST(SGOT) 16 U/L 03/26/2015 Comp Metabolic Dhv868 ALT(SGPT) 8 U/L 03/26/2015 Comp Metabolic Byn123 BILI T 0.4 mg/dL 03/26/2015 Comp Metabolic Dyj221 ALBUMIN 3.9 g/dL 03/26/2015 Comp Metabolic Lde340 TPRO 6.4 g/dL 03/26/2015 Comp Metabolic Bkc568 GLOB 2.5 g/dL 03/26/2015 Comp Metabolic Hzi105 A/G Ratio 1.6 Ratio 03/26/2015 Comp Metabolic Tbn668 Osmo 275 mOsmo 03/26/2015 Free T4 Hyi384 FREE T4 1.22 ng/dL 03/26/2015 Tsh Ord6 hTSH II 0.20 uIU/mL 03/26/2015 Vitamin D 25 Oh Mxn0483 VITAMIN D, 25 HYDROXY 51.09 ng/mL 12/25/2014 Tsh Ord6 hTSH II 0.09 uIU/mL 12/23/2014 Free T4 Cuz891 FREE T4 1.30 ng/dL 12/23/2014 Comp Metabolic Ohx579 NA 135 mEq/L 12/23/2014 Comp Metabolic Ddc958 K 4.7 mEq/L 12/23/2014 Comp Metabolic Yrc835 CL 100 mEq/L 12/23/2014 Comp Metabolic Bta228 CO2 23.0 mEq/L 12/23/2014 Comp Metabolic Bon103 ANION GAP 17 12/23/2014 Comp Metabolic Rby518 GLUCOSE 93 mg/dL 12/23/2014 Comp Metabolic Fec334 Creat 1.1 mg/dL 12/23/2014 Comp Metabolic Weh360 eGFR 53 ml/min/1.73m2 12/23/2014 Comp Metabolic Jwk930 BUN 26 mg/dL 12/23/2014 Comp Metabolic Xrj148 B/C Ratio 24.3 Ratio 12/23/2014 Comp Metabolic Kfa410 CALCIUM 9.5 mg/dL 12/23/2014 Comp Metabolic Czz743 ALK PHOS 27 U/L 12/23/2014 Comp Metabolic Kpq025 AST(SGOT) 16 U/L 12/23/2014 Comp Metabolic Ohf163 ALT(SGPT) 8 U/L 12/23/2014 Comp Metabolic Qkw844 BILI T 0.4 mg/dL 12/23/2014 Comp Metabolic Feg502 ALBUMIN 3.9 g/dL 12/23/2014 Comp Metabolic Kud745 TPRO 6.7 g/dL 12/23/2014 Comp Metabolic Uor336 GLOB 2.8 g/dL 12/23/2014 Comp Metabolic Ldr278 A/G Ratio 1.4 Ratio 12/23/2014 Comp Metabolic Sqs627 Osmo 275 mOsmo 12/23/2014 Review of Systems [...] nourished 10/27/2017 None Full Exam - General 1995 Constitutional [...] clear 01/26/2017 None Full Exam - General 1995 Ears/Nose/Throat [...] lips 07/28/2016 None Full Exam - General 1995 Ears/Nose/Throat lips/teeth/gingiva Overall: normal dentition 07/28/2016 None [...] inspection of skin Consistency: thick 03/31/2015 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 - actinic keratosis [...] SUBSEQ VISIT CPT- 4: 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[address]: 208569196 CPT-4: G0436 04/11/2017 PNEUMOCOCCAL VACC [address]: 32733210 CPT-4: 96267 02/09/2017 FLU VACC PRSV FREE INC ANTIG CPT-4: 72291 02/09/2017 ADMIN INFLUENZA VIRUS VAC CPT-4: G0008 02/09/2017 ADMIN PNEUMOCOCCAL VACCINE SNOMED CT: 24756995 CPT-4: G0009 02/09/2017 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 3-[address]: 091345772 CPT-4: G0436 02/07/2017 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 3-[address]: 445854851 CPT-4: G0436 10/19/2016 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 3-[address]: 596019480 CPT-4: G0436 08/31/2016 TRIAMCINOLONE ACET INJ NOS CPT-4: J3301 08/12/2016 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 3-[address]: 743969424 CPT-4: G0436 07/28/2016 ADMIN INFLUENZA VIRUS VAC CPT-4: G0008 01/28/2016 FLU VACC 4 JULISA 3 YRS PLUS IM SNOMED CT: 52910395 CPT-4: 80537 01/28/2016 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 3-[address]: 333480023 CPT-4: G0436 07/29/2015 Vital Signs Date Vital 08/21/2018 Blood Pressure 1: 144/82 Code: 8480-6 BMI: 23.9 Code: 92598-2 Heart Rate 1: 99 bpm Height: 5'4" SpO2: 95% Weight: 139 lbs 07/17/2018 Blood Pressure 1: 126/54 Code: 8480-6 BMI: 24.4 Code: 77938-4 Heart Rate 1: 70 bpm Height: 5'4" SpO2: 98% Weight: 142 lbs 06/05/2018 Blood Pressure 1: 122/60 Code: 8480-6 BMI: 25.4 Code: 08384-5 Heart Rate 1: 74 bpm Height: 5'4" SpO2: 98% Weight: 148 lbs 05/05/2018 Blood Pressure 1: 130/64 Code: 8480-6 BMI: 25.1 Code: 23918-1 Heart Rate 1: 72 bpm Height: 5'4" SpO2: 97% Weight: 146 lbs 04/03/2018 Blood Pressure 1: 142/80 Code: 8480-6 BMI: 25.2 Code: 78056-1 Heart Rate 1: 99 bpm Height: 5'4" SpO2: 97% Weight: 147 lbs 03/06/2018 Blood Pressure 1: 140/80 Code: 8480-6 BMI: 26.1 Code: 84271-9 Heart Rate 1: 71 bpm Height: 5'4" SpO2: 98% Weight: 152 lbs 02/22/2018 Blood Pressure 1: 146/68 Code: 8480-6 BMI: 26.6 Code: 66213-3 Heart Rate 1: 88 bpm Height: 5'4" SpO2: 97% Weight: 155 lbs 12/13/2017 Blood Pressure 1: 132/68 Code: 8480-6 BMI: 26.6 Code: 26451-5 Heart Rate 1: 72 bpm Height: 5'4" SpO2: 94% Weight: 154 lbs 14 oz 11/29/2017 Blood Pressure 1: 130/64 Code: 8480-6 BMI: 26.1 Code: 87865-1 Heart Rate 1: 81 bpm Height: 5'4" SpO2: 94% Weight: 152 lbs 10/27/2017 Blood Pressure 1: 120/62 Code: 8480-6 BMI: 25.9 Code: 91740-6 Heart Rate 1: 70 bpm Height: 5'4" SpO2: 96% Weight: 151 lbs 07/26/2017 Blood Pressure 1: 146/70 Code: 8480-6 BMI: 26.3 Code: 13329-2 Heart Rate 1: 69 bpm Height: 5'4" SpO2: 98% Weight: 153 lbs 05/26/2017 Blood Pressure 1: 142/76 Code: 8480-6 BMI: 26.4 Code: 76091-2 Heart Rate 1: 59 bpm Height: 5'4" SpO2: 99% Weight: 154 lbs 04/11/2017 Blood Pressure 1: 134/64 Code: 8480-6 BMI: 26.6 Code: 70707-1 Heart Rate 1: 65 bpm Height: 5'4" SpO2: 98% Weight: 155 lbs 02/07/2017 Blood Pressure 1: 120/72 Code: 8480-6 Heart Rate 1: 72 bpm Height: 5'4" SpO2: 96% Weight: 01/26/2017 Blood Pressure 1: 146/68 Code: 8480-6 BMI: 26.4 Code: 55267-4 Heart Rate 1: 96 bpm Height: 5'4" SpO2: 97% Weight: 154 lbs 10/19/2016 Blood Pressure 1: 144/76 Code: 8480-6 BMI: 25.8 Code: 75825-3 Heart Rate 1: 68 bpm Height: 5'4" SpO2: 96% Weight: 150 lbs 8 oz 09/22/2016 Blood Pressure 1: 122/80 Code: 8480-6 BMI: 26.1 Code: 61781-3 Heart Rate 1: 111 bpm Height: 5'4" SpO2: 97% Weight: 152 lbs 08/31/2016 Blood Pressure 1: 152/82 Code: 8480-6 BMI: 27.1 Code: 89761-5 Heart Rate 1: 118 bpm Height: 5'4" SpO2: 96% Weight: 158 lbs 08/12/2016 Blood Pressure 1: 146/78 Code: 8480-6 BMI: 26.9 Code: 25340-0 Heart Rate 1: 68 bpm Height: 5'4" SpO2: 97% Weight: 157 lbs 07/28/2016 Blood Pressure 1: 128/64 Code: 8480-6 BMI: 27.1 Code: 70131-0 Heart Rate 1: 63 bpm Height: 5'4" SpO2: 97% Weight: 158 lbs 01/28/2016 Blood Pressure 1: 130/70 Code: 8480-6 BMI: 27.3 Code: 68065-0 Heart Rate 1: 60 bpm Height: 5'4" SpO2: 95% Weight: 159 lbs 07/29/2015 Blood Pressure 1: 136/80 Code: 8480-6 BMI: 28.1 Code: 31620-5 Heart Rate 1: 68 bpm Height: 5'4" SpO2: 96% Weight: 163 lbs 8 oz 03/31/2015 Blood Pressure 1: 138/88 Code: 8480-6 BMI: 27.5 Code: 89666-6 Heart Rate 1: 72 bpm Height: 5'4" Weight: 160 lbs 12/23/2014 Blood Pressure 1: 138/68 Code: 8480-6 BMI: 27.1 Code: 91354-3 Heart Rate 1: 63 bpm Height: 5'4" [...] data Encounters Encounter Performer Location Codes Date EST. PATIENT, LEVEL IV Diagnosis: Atrophy of thyroid (acquired)[ICD10: E03.4] Diagnosis: Other iron deficiency anemias[ICD10: D50.8] Diagnosis: Pain in right hip[ICD10: M25.551] Diagnosis: Essential (primary) hypertension[ICD10: I10] Kandi Cabrera MD, [facility] CPT-4: 79408 08/21/2018 ([id number]) 60509 EST. PATIENT, LEVEL IV Diagnosis: Essential (primary) hypertension[ICD10: I10] Diagnosis: Other iron deficiency anemias[ICD10: D50.8] Diagnosis: Tobacco abuse counseling[ICD10: Z71.6] Diagnosis: Chronic atrial fibrillation[ICD10: I48.2] Kandi Cabrera MD, [facility] CPT-4: 23897 07/17/2018 ([id number]) BEHAV CHNG SMOKING 3-10 MIN Diagnosis: [ICD9: ] Diagnosis: [ICD9: ] Diagnosis: [ICD9: ] Diagnosis: [ICD9: ] Kandi Cabrera MD, [facility] CPT-4: 98700 07/17/2018 ([id number]) 83383 EST. PATIENT, LEVEL IV Diagnosis: Other specified anemias[ICD10: D64.89] Diagnosis: Other insomnia[ICD10: G47.09] Diagnosis: Atrophy of thyroid (acquired)[ICD10: E03.4] Diagnosis: Allergic urticaria[ICD10: L50.0] Kandi Cabrera MD, [facility] CPT-4: 85924 06/05/2018 ([id number]) 28242 EST. PATIENT, LEVEL IV Diagnosis: Essential (primary) hypertension[ICD10: I10] Diagnosis: Nonrheumatic aortic (valve) stenosis[ICD10: I35.0] Diagnosis: Atrophy of thyroid (acquired)[ICD10: E03.4] Diagnosis: Chronic atrial fibrillation[ICD10: I48.2] Kandi Cabrera MD, [facility] CPT-4: 67600 04/03/2018 ([id number]) 60073 EST. PATIENT, LEVEL IV Diagnosis: Essential (primary) hypertension[ICD10: I10] Diagnosis: Chronic atrial fibrillation[ICD10: I48.2] Diagnosis: Nonrheumatic aortic (valve) stenosis[ICD10: I35.0] Diagnosis: Age-related osteoporosis without current pathological fracture[ICD10: M81.0] Kandi Cabrera MD, [facility] CPT-4: 48468 03/06/2018 04440 EST. PATIENT, LEVEL III Diagnosis: Low back pain[ICD10: M54.5] Diagnosis: Dysuria[ICD10: R30.0] Diagnosis: Gastro-esophageal reflux disease without esophagitis[ICD10: K21.9] Payton Cabrera MD, [facility] CPT-4: 98315 02/22/2018 ([id number]) 70563 EST. PATIENT, LEVEL III Diagnosis: Atrophy of thyroid (acquired)[ICD10: E03.4] Diagnosis: Other iron deficiency anemias[ICD10: D50.8] Diagnosis: Epigastric pain[ICD10: R10.13] Kandi Cabrera MD, [facility] CPT-4: 75176 12/13/2017 [id number]) 57574 EST. PATIENT, LEVEL IV Diagnosis: Diverticulitis of large intestine without perforation or abscess without bleeding[ICD10: K57.32] Kandi Cabrera MD, [facility] CPT-4: 49554 11/29/2017 ([id number]) 91467 EST. PATIENT, LEVEL IV Diagnosis: Atrophy of thyroid (acquired)[ICD10: E03.4] Diagnosis: Other iron deficiency anemias[ICD10: D50.8] Diagnosis: Epigastric pain[ICD10: R10.13] Diagnosis: Right lower quadrant pain[ICD10: R10.31] Diagnosis: Left lower quadrant pain[ICD10: R10.32] Kandi Cabrera MD, [facility] CPT-4: 62634 10/27/2017 21258 EST. PATIENT, LEVEL IV Diagnosis: Atrophy of thyroid (acquired)[ICD10: E03.4] Diagnosis: Other iron deficiency anemias[ICD10: D50.8] Diagnosis: Essential (primary) hypertension[ICD10: I10] Diagnosis: Gastro-esophageal reflux disease without esophagitis[ICD10: K21.9] Payton Cabrera MD, [facility] CPT-4: 17682 07/26/2017 ([id number]) 88780 EST. PATIENT, LEVEL IV Diagnosis: Other iron deficiency anemias[ICD10: D50.8] Diagnosis: Atrophy of thyroid (acquired)[ICD10: E03.4] Diagnosis: Tobacco use[ICD10: Z72.0] Diagnosis: Essential (primary) hypertension[ICD10: I10] Diagnosis: Low back pain[ICD10: M54.5] Kandi Cabrera MD, [facility] CPT-4: 67223 05/26/2017 ([id number]) 24049 EST. PATIENT, LEVEL IV Diagnosis: Shortness of breath[ICD10: R06.02] Diagnosis: Tobacco use[ICD10: Z72.0] Diagnosis: Chronic atrial fibrillation[ICD10: I48.2] Kandi Cabrera MD, [facility] CPT-4: 68147 04/11/2017 ([id number]) 70569 EST. PATIENT, LEVEL III Diagnosis: Unsteadiness on feet[ICD10: R26.81] Diagnosis: Tobacco use[ICD10: Z72.0] Kandi Cabrera MD, [facility] CPT-4: 17224 02/07/2017 ([id number]) 61641 EST. PATIENT, LEVEL IV Diagnosis: Cough[ICD10: R05] Diagnosis: Essential (primary) hypertension[ICD10: I10] Diagnosis: Chronic atrial fibrillation[ICD10: I48.2] Diagnosis: Unsteadiness on feet[ICD10: R26.81] Kandi Cabrera MD, [facility] CPT- 4: 48881 01/26/2017 ([id number]) 02596 EST. PATIENT, LEVEL IV Diagnosis: Essential (primary) hypertension[ICD10: I10] Diagnosis: Atrophy of thyroid (acquired)[ICD10: E03.4] Diagnosis: Tobacco use[ICD10: Z72.0] Diagnosis: Chronic atrial fibrillation[ICD10: I48.2] Diagnosis: Mixed hyperlipidemia[ICD10: E78.2] Kandi Cabrera MD [facility] CPT- 4: 31936 10/19/2016 ([id number]) 55161 EST. PATIENT, LEVEL IV Diagnosis: Atrophy of thyroid (acquired)[ICD10: E03.4] Diagnosis: Mixed hyperlipidemia[ICD10: E78.2] Diagnosis: Essential (primary) hypertension[ICD10: I10] Kandi Cabrera MD [facility] CPT-4: 03492 09/22/2016 ([id number]) 03550 EST. PATIENT, LEVEL IV Diagnosis: Essential (primary) hypertension[ICD10: I10] Diagnosis: Atrophy of thyroid (acquired)[ICD10: E03.4] Diagnosis: Chronic atrial fibrillation[ICD10: I48.2] Kandi Cabrera MD [facility] CPT-4: 10566 08/31/2016 ([id number]) 71791 EST. PATIENT, LEVEL III Diagnosis: Low back pain[ICD10: M54.5] Diagnosis: Sacroiliitis, not elsewhere classified[ICD10: M46.1] Janeen Cabrera MD [facility] CPT-4: 44190 08/12/2016 ([id number]) 39890 EST. PATIENT, LEVEL IV Diagnosis: Mixed hyperlipidemia[ICD10: E78.2] Diagnosis: Essential (primary) hypertension[ICD10: I10] Diagnosis: Atrophy of thyroid (acquired)[ICD10: E03.4] Kandi Cabrera MD, [facility] CPT-4: 02324 07/28/2016 ([id number]) 36885 EST. PATIENT, LEVEL IV Diagnosis: Hypothyroidism, unspecified[ICD10: E03.9] Diagnosis: Essential (primary) hypertension[ICD10: I10] Diagnosis: Mixed hyperlipidemia[ICD10: E78.2] Diagnosis: Cellulitis of left lower limb[ICD10: L03.116] Diagnosis: Encounter for immunization[ICD10: Z23] Kandi Cabrera MD [facility] CPT-4: 77592 01/28/2016 ([id number]) 00511 EST. PATIENT, LEVEL IV Diagnosis: Essential (primary) hypertension[ICD10: I10] Diagnosis: Hypothyroidism, unspecified[ICD10: E03.9] Diagnosis: Diarrhea, unspecified[ICD10: R19.7] Diagnosis: Tobacco use[ICD10: Z72.0] Diagnosis: Tobacco abuse counseling[ICD10: Z71.6] Diagnosis: Other obesity due to excess calories[ICD10: E66.09] Kandi Cabrera MD, [facility] CPT-4: 89346 07/29/2015 ([id number]) 65789 EST. PATIENT, LEVEL IV Diagnosis: Essential (primary) hypertension[ICD10: I10] Diagnosis: Hypothyroidism, unspecified[ICD10: E03.9] Diagnosis: Actinic keratosis[ICD10: L57.0] Kandi Cabrera MD, [facility] CPT-4: 82469 03/31/2015 ([id number]) OFFICE VISIT, NEW - LEVEL 4 Diagnosis: ESSENTIAL HYPERTENSION[ICD9: 401.9] Diagnosis: HYPOTHYROIDISM[ICD9: 244.9] Diagnosis: HYPERLIPIDEMIA[ICD9: 272.4] Diagnosis: Osteoporosis[ICD9: 733.00] Diagnosis: OSTEOARTH NOS-UNSPEC[ICD9: 715.90] Diagnosis: Sacroiliitis[ICD9: 720.2] Kandi Cabrera MD, [facility] CPT-4: 05977 12/23/2014 Plan of Care Planned Activity Notes [...] valve replacement. 08/21/2018 Appointment: Kandi Cabrera [facility] [address] [facility] (15 min) Moderate 08/21/2018 Patient Education: Patient [...] cardiovascular status. 07/17/2018 Appointment: Kandi Cabrera WPtel: [facility] [address] [facility] (15 min) Moderate 07/17/2018 Patient Education: Patient Medication Summary Completed 07/17/2018 Patient Education: Hypertension Completed 07/17/2018 Appointment: Kandi Cabrera WPtel: [facility] [address] [facility] (15 [...] hydroxyzine. 06/05/2018 Appointment: Kandi Cabrera WPtel: [phone] [facility] (15 min) Moderate 06/05/2018 Patient Education: [...] Addiction Completed 05/05/2018 Appointment: Kandi Cabrera WPtel: [facility] [address] [facility] (15 min) Moderate 04/11/2018 Visit Plan: Hypertension [...] not improving. 04/03/2018 Appointment: Kandi Cabrera WPtel: [phone] [facility] (15 min) Moderate 04/03/2018 Patient [...] a conversation about surgical intervention with her Plywood Stock Grader. 03/06/2018 Appointment: Kandi Cabrera WPtel: [phone] [facility] (15 min) Moderate 03/06/2018 Patient Education: Patient [...] improving. 02/22/2018 Appointment: Payton Leon [facility]Ptel[phone] [facility] [place] (15 min) Moderate 02/22/2018 Patient Education: Patient Medication Summary Completed 02/22/2018 Patient Education: Back Pain Completed 02/22/2018 Visit Plan: Diarrhea - improved - pt advised to avoid seeds, nuts, popcorn, or any other food which has been proven to upset the pt's stomach. 12/13/2017 Appointment: Kandi Cabrera WPtel: [phone] [facility] [place] (15 min) Moderate 12/13/2017 Patient Education: Patient Medication Summary Completed 12/13/2017 Visit Plan: Diverticulitis - rx for antibiotic sent to pt's pharmacy - pt advised to avoid seeds, nuts, popcorn, or any other food which has been proven to upset the pt's stomach. 11/29/2017 Appointment: Kandi Cabrera WPtel: [phone] [place] [...] 10 days 10/27/2017 Appointment: Kandi Cabrera [facility]Ptel[facility] [phone] [facility] [place] (15 min) [...] improving. 07/26/2017 Appointment: Payton Leon [phone] (30 min) Complex 07/26/2017 Patient Education: Patient Medication Summary Completed 07/26/2017 Care Plan: Iron Pending 07/26/2017 Care Plan: Referral Order SNOMED-CT : [id number] Pending 07/26/2017 Visit Plan: Hypertension - well [...] recommended. 05/26/2017 Appointment: [phone] (15 min) Moderate 05/26/2017 Patient Education: Patient Medication Summary Completed 05/26/2017 Patient Education: Patient Medication Summary Completed 05/19/2017 Care Plan: Iron Pending 05/19/2017 Visit Plan: Dyspnea on Exertion - uncontrolled - I have recommended pt to have Pulmonary function studies as well as a referral back to her Plywood Stock Grader - Dr. Hanna - I suspect she [...] cigarettes". 04/11/2017 Appointment: Kandi Cabrera WPtel: [phone] [facility] (15 min) Moderate 04/11/2017 Patient Education: Patient Medication Summary Completed 04/11/2017 Patient Education: Smoking and Tobacco Addiction Completed 04/11/2017 Care Plan: Referral Order SNOMED-CT : [id number] Pending 04/11/2017 Appointment: Kandi Cabrera WPtel: [phone] [facility] (15 min) Moderate 02/14/2017 Appointment: Injection 02/09/2017 Referral: [facility]: [phone] [facility] Patient informed. Completed 02/09/2017 Patient Education: Patient Medication Summary Completed 02/09/2017 Patient Education: Smoking and Tobacco Addiction Completed 02/09/2017 Visit Plan: Tobacco abuse - chronic condition for this patient. Patient has been counseled about need to stop smoking due to the negative health affects. Pt has vocalized understanding and states that they will con virtualization architect smoking cessation, but the pt is not yet ready to use medication to assist cessation. Rx for wellbutrin 75mg 1/2 pill bid. Gait instability - referral to [facility] for gait instability 02/07/2017 Appointment: Kandi Cabrera WPtel: [phone] [facility] [place] (15 min) Moderate 02/07/2017 Patient Education: Patient Medication Summary Completed 02/07/2017 Patient Education: Smoking and Tobacco Addiction Completed 02/07/2017 Care Plan: Referral Order SNOMED-CT : [id number] Pending 02/07/2017 Visit Plan: Cough - pt [...] per week. 10/19/2016 Appointment: [phone] [facility] [place] (15 min) Moderate 10/19/2016 Patient Education: Patient Medication Summary Completed 10/19/2016 Patient Education: Smoking and Tobacco Addiction Completed 10/19/2016 Patient Education: Hypertension Completed 10/19/2016 Visit Plan: Atrial Fibrillation - pt on chronic anticoagulation and is not optimally rate controlled. Pt is to see her marina manager tomorrow, will discuss with him her [...] of control. 09/22/2016 Appointment: Kandi Cabrera WPtel: [phone] [facility] (15 min) Moderate 09/22/2016 Patient Education: Patient [...] q 3 months or q 6 m [facility] based on previous levels of control. 08/31/2016 Appointment: [facility]el[phone] [facility] (15 min) Moderate 08/31/2016 Patient Education: Patient Medication Summary Completed 08/31/2016 Patient Education: Smoking and Tobacco Addiction Completed 08/31/2016 Patient Education: Hypertension Completed 08/31/2016 Visit Plan: Sacroiliitis -kenalog injection today in the office- tylenol as directed-heat as directed-xray lumbar spine. Pt is to call if the symptoms do not improve or if they worsen. 08/12/2016 Appointment: Maximo Janeen WPtel: [phone] [phone] (30 min) Complex 08/12/2016 Patient Education: Patient Medication Summary Completed 08/12/2016 Patient Education: Smoking and Tobacco Addiction Completed 08/12/2016 Appointment: Payton Leon WPtel: [phone] [facility] [facility] - Annual Wellness Visit 07/30/2016 Visit Plan: [...] to medications. 07/28/2016 Appointment: [facility]el[phone] (15 min) Moderate 07/28/2016 Patient Education: [...] today 01/28/2016 Appointment: [facility]el: [phone] [facility] [place] (15 min) Moderate 01/28/2016 Patient [...] of control. A ctinic keratosis - 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 - pt to [...] 12/23/2014 Care Plan: Referral Order SNOMED-CT : [id number] Ordered 12/23/2014 Referral: External, Ordering Provider Referral Completed Referral: External, Ordering Provider Referral Appointment Requested Referral: Maggi Reaves Referral Initiated Referral: [phone] [place] Referral Appointment Requested Referral: External, Ordering Provider Dr. Hanna's office has already contacted her about an appt scheduled for April 25 at 9:00 AM. Completed Instructions Comment Will culture your urine to make sure [...] a conversation about surgical intervention with her Plywood Stock Grader. . Diverticulitis - rx for antibiotic sent to pt's pharmacy - pt advised to avoid seeds, nuts, popcorn, or any other food which has been proven to upset the pt's stomach. . Atrial Fibrillation - pt on chronic anticoagulation and is not optimally rate controlled. Pt is to see her marina manager tomorrow, will discuss with him her [...] well as a referral back to her Plywood Stock Grader - Dr. Hanna - I suspect she [...] DOPA paperwork for health care surrogate. . Hypertension - well controlled - continue [...] assure normal liver response to medications. . Cough - pt given rx for [...] their heart rate is becoming uncontrolled. . Hypothyroidism - pt with chronic hypothyroidism, [...] levels of control. Actinic keratosis - 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 - pt to [...] daily, call if not improving. PROBIOTIC - Hylete, lactobacilus/acidophilis brand probiotic - these can be [...] is ready to discuss valve replacement. . Atrial Fibrillation - pt on chronic [...]
--- OUTSIDE RECORDS SUMMARY | 2018-12-29 13:35 | XMS REPORT | CCD ---
Author Author Kandi Cabrera Organization Kandi Cabrera MD, [facility] Address [address] [place] [address] Phone Care Team Providers Care Engineering Manager Electronics Name Role Phone PP Unavailable CCM Unavailable Summary Purpose Interface Exchange Insurance Providers Payer name Policy type / Coverage type Covered green party ID Effective Begin Date Effective End Date [facility] Commercial Insurance [id number] Unknown WPS Medicare Part B Commercial Insurance [id number] 2017 Unknown Family history Father Diagnosis Age [...] Unknown Retired 12/23/[address]: 98670393 Current every day smoker 12/23/2014 Number of years using tobacco Unknown > 50 trying to quit 12/23/2014 Number of cigarettes/day Unknown 10 (Half a pack) 12/23/[address]: 888325470 Never drinks alcohol 12/23/2014 Allergies, Adverse Reactions, Alerts Substance Reaction Codes Entered Date Inactivated Date Status ciprofloxacin RxNorm: 30572 05/05/2018 No Inactive Date Active SULFA(SULFONAMIDE ANTIBIOTICS) [...] Stop Date Status Fill Instructions diltiazem ER 120 mg capsule,24 hr,extended release RxNorm: 386316 1 Capsule(s) PO daily 08/29/2018 08/23/2019 Active perphenazine-amitriptyline 2 mg-10 mg tablet RxNorm: 768702 2 Tablet(s) PO daily 08/15/2018 11/07/2019 Active PA approved: [id number] [id number]-- perphenazine-amitriptyline 2 mg-10 mg tablet RxNorm: 467732 2 Tablet(s) PO daily 08/15/2018 08/14/2018 Inactive PA approved: need 7 days while waiting on mail order perphenazine-amitriptyline 2 mg-10 mg tablet RxNorm: 607838 2 Tablet(s) PO daily 08/04/2018 08/03/2018 Inactive waiting on mail order perphenazine-amitriptyline 2 mg-10 mg tablet RxNorm: 661105 2 Tablet(s) PO daily 08/04/2018 08/03/2018 Inactive perphenazine-amitriptyline 2 mg-10 mg tablet RxNorm: 598703 2 Tablet(s) PO daily 08/04/2018 08/14/2018 Inactive Tricor 145 mg tablet RxNorm: 237687 1 Tablet(s) PO daily 07/17/2018 10/09/2019 Active pantoprazole 40 mg tablet,delayed release RxNorm: 035535 1 Tablet(s) PO daily 07/17/2018 10/09/2019 Active hydroxyzine HCl 25 mg tablet RxNorm: 970591 2 Tablet(s) PO QHS may increase to two pills at hs if allergic reactions are occuring 07/17/2018 11/13/2018 Active Synthroid 100 mcg tablet RxNorm: 641179 1 Tablet(s) PO daily 06/05/2018 08/28/2019 Active hydroxyzine HCl 25 mg tablet RxNorm: 445111 1 Tablet(s) PO QHS may increase to two pills at hs if allergic reactions are occuring 06/05/2018 07/16/2018 Inactive Lasix 20 mg tablet RxNorm: 701300 1 Tablet(s) PO daily as needed not more than one time a day 05/19/2018 09/15/2018 Active prednisone 20 mg tablet RxNorm: 540499 2 Tablet(s) PO daily 02/22/2018 02/26/2018 Inactive Cipro 500 mg tablet RxNorm: 009221 1 Tablet(s) PO BID 02/22/2018 02/28/2018 Inactive potassium chloride ER 10 mEq tablet,extended release RxNorm: 846606 1 Tablet(s) PO UD take on days that you take a lasix pill 02/13/2018 02/07/2019 Active Synthroid 100 mcg tablet RxNorm: 239581 1 Tablet(s) PO daily 02/13/2018 06/04/2018 Inactive simvastatin 20 mg tablet RxNorm: 263391 1 Tablet(s) PO QHS 01/13/2018 01/07/2019 Active metronidazole 500 mg tablet RxNorm: 707733 1 Tablet(s) PO TID 11/29/2017 12/08/2017 Inactive alendronate 70 mg tablet RxNorm: 483746 1 Tablet(s) PO weekly 11/29/2017 03/05/2018 Inactive omeprazole 40 mg capsule,delayed release RxNorm: 132665 1 Capsule(s) PO daily 11/11/2017 07/16/2018 Inactive Flagyl 500 mg tablet RxNorm: 349849 1 Tablet(s) PO TID 10/27/2017 11/05/2017 Inactive sucralfate 1 gram tablet RxNorm: 953299 1 Tablet(s) PO TID 07/26/2017 07/20/2018 Inactive fluticasone 50 mcg/actuation nasal spray,suspension RxNorm: 2896785 1 [place] NASAL daily 07/26/2017 No Stop Date Active Protonix 40 mg tablet,delayed release RxNorm: 251196 1 Tablet(s) PO daily 07/26/2017 10/23/2017 Inactive Tricor 145 mg tablet RxNorm: 969331 1 Tablet(s) PO daily 05/26/2017 05/20/2018 Inactive perphenazine-amitriptyline 2 mg-10 mg tablet RxNorm: 162709 2 Tablet(s) PO daily 05/26/2017 05/20/2018 Inactive bupropion HCl 75 mg tablet RxNorm: 677741 1/2 Tablet(s) PO BID 02/07/2017 05/07/2017 Inactive Eliquis 5 mg tablet RxNorm: 0731495 1 Tablet(s) PO BID 01/26/2017 01/20/2018 Inactive sotalol 80 mg tablet RxNorm: 2994866 1 Tablet(s) PO BID 01/26/2017 04/20/2018 Inactive potassium chloride ER 10 mEq tablet,extended release RxNorm: 020439 1 Tablet(s) PO UD take on days that you take a lasix pill 01/26/2017 01/20/2018 Inactive Synthroid 100 mcg tablet RxNorm: 255973 1 Tablet(s) PO daily 01/26/2017 02/12/2018 Inactive diltiazem ER 240 mg capsule,extended release RxNorm: 423778 1 Capsule(s) PO BID 01/26/2017 05/03/2017 Inactive Lasix 20 mg tablet RxNorm: 1 Tablet(s) PO daily as needed not more than one time a day 01/26/2017 05/25/2017 Inactive simvastatin 20 mg tablet RxNorm: 867251 1 Tablet(s) PO QHS 12/21/2016 12/15/2017 Inactive alendronate 70 mg tablet RxNorm: 724453 1 Tablet(s) PO weekly 12/21/2016 11/28/2017 Inactive omeprazole 40 mg capsule,delayed release RxNorm: 258677 1 Capsule(s) PO daily 10/19/2016 10/12/2017 Inactive metoprolol succinate ER 100 mg tablet,extended release 24 hr RxNorm: 774258 1.5 Tablet(s) PO daily 09/17/2016 10/18/2016 Inactive Dosage increased by Dr. Vazquez potassium chloride ER 10 mEq tablet,extended release RxNorm: 977786 1 Tablet(s) PO UD take on days that you take a lasix pill 08/31/2016 12/28/2016 Inactive Lasix 20 mg tablet RxNorm: 1 Tablet(s) PO daily as needed not more than one time a day 08/31/2016 12/28/2016 Inactive Kenalog 40 mg/mL suspension for injection RxNorm: 4126398 1 Milliliter(s) Inj 08/12/2016 08/12/2016 Inactive Tricor 145 mg tablet RxNorm: 212829 1 Tablet(s) PO daily 05/21/2016 05/15/2017 Inactive atenolol 25 mg tablet RxNorm: 016096 1 Tablet(s) PO daily 05/21/2016 08/30/2016 Inactive sucralfate 1 gram tablet RxNorm: 541040 1 Tablet(s) PO TID 05/21/2016 05/15/2017 Inactive enalapril maleate 10 mg tablet RxNorm: 432944 1 Tablet(s) PO daily 04/26/2016 08/30/2016 Inactive perphenazine-amitriptyline 2 mg-10 mg tablet RxNorm: 227552 2 Tablet(s) PO daily 04/26/2016 04/20/2017 Inactive fluticasone 50 mcg/actuation nasal spray,suspension RxNorm: 1448278 1 [place] NASAL daily 04/26/2016 07/25/2017 Inactive Synthroid 100 mcg tablet RxNorm: 548523 1 Tablet(s) PO daily 02/09/2016 01/25/2017 Inactive Synthroid 100 mcg tablet RxNorm: 566386 1 Tablet(s) PO daily 02/09/2016 02/08/2016 Inactive Keflex 500 mg capsule RxNorm: 482901 1 Capsule(s) PO TID 01/28/2016 02/01/2016 Inactive hydrochlorothiazide 25 mg tablet RxNorm: 700756 TAKE 1 TABLET DAILY 01/07/2016 08/30/2016 Inactive enalapril maleate 10 mg tablet RxNorm: 990467 1 Tablet(s) PO daily 12/26/2015 04/25/2016 Inactive hydrochlorothiazide 25 mg tablet RxNorm: 140434 1 Tablet(s) PO daily 12/08/2015 08/30/2016 Inactive omeprazole 40 mg capsule,delayed release RxNorm: 637167 1 Capsule(s) PO daily 12/08/2015 10/18/2016 Inactive simvastatin 20 mg tablet RxNorm: 768312 1 Tablet(s) PO QHS 11/14/2015 11/07/2016 Inactive alendronate 70 mg tablet RxNorm: 644963 1 Tablet(s) PO weekly 10/31/2015 10/24/2016 Inactive Synthroid 112 mcg tablet RxNorm: 890961 1 Tablet(s) PO daily 07/16/2015 02/08/2016 Inactive sucralfate 1 gram tablet RxNorm: 316669 1 Tablet(s) PO TID 06/17/2015 05/20/2016 Inactive perphenazine-amitriptyline 2 mg-10 mg tablet RxNorm: 249322 2 Tablet(s) PO daily 06/17/2015 04/25/2016 Inactive fluticasone 50 mcg/actuation nasal spray,suspension RxNorm: 0902941 1 [place] NASAL daily 06/17/2015 04/25/2016 Inactive fluorouracil 5 % topical cream RxNorm: 823488 APPLY 1 APPLICATION TOPICALLY TWO TIMES A DAY 06/16/2015 06/25/2015 Inactive fluticasone 50 mcg/actuation nasal spray,suspension RxNorm: 179698 1 [place] NASAL daily 06/12/2015 06/16/2015 Inactive atenolol 25 mg tablet RxNorm: 371995 1 Tablet(s) PO daily 05/14/2015 05/07/2016 Inactive Tricor 145 mg tablet RxNorm: 410701 1 Tablet(s) PO daily 04/23/2015 04/16/2016 Inactive Synthroid 125 mcg tablet RxNorm: 990446 1 Tablet(s) PO daily 03/31/2015 07/15/2015 Inactive fluorouracil 5 % topical cream RxNorm: 060753 1 Application TOP BID 03/31/2015 04/09/2015 Inactive Synthroid 137 mcg tablet RxNorm: 249358 1 Tablet(s) PO daily 12/25/2014 12/24/2014 Inactive Synthroid 137 mcg tablet RxNorm: 197912 1 Tablet(s) PO daily 12/25/2014 03/30/2015 Inactive Voltaren 1 % topical gel RxNorm: 014313 4 Gram(s) TOP QID 12/23/2014 04/21/2015 Inactive alendronate 70 mg tablet RxNorm: 388867 1 Tablet(s) PO weekly 12/23/2014 12/22/2014 Inactive alendronate 70 mg tablet RxNorm: 514608 1 Tablet(s) PO weekly 12/23/2014 10/30/2015 Inactive Fosamax 70 mg tablet RxNorm: 391135 1 Tablet(s) PO weekly QW 12/23/2014 01/27/2016 Inactive omeprazole 40 mg capsule,delayed release RxNorm: 485012 1 Capsule(s) PO daily 12/18/2014 12/07/2015 Inactive omeprazole 40 mg capsule,delayed release RxNorm: 545041 1 Capsule(s) PO daily 12/18/2014 12/17/2014 Inactive hydrochlorothiazide 25 mg tablet RxNorm: 846546 1 Tablet(s) PO daily 12/18/2014 12/17/2014 Inactive hydrochlorothiazide 25 mg tablet RxNorm: 399174 1 Tablet(s) PO daily 12/18/2014 12/07/2015 Inactive L-Lysine 1,000 mg tablet RxNorm: 243410 1 Tablet(s) PO daily No Start Date Active folic acid 400 mcg tablet RxNorm: 234179 1 Tablet(s) PO daily No Start Date Active B12 1000 mcg RxNorm: 1/2 Tablet(s) PO daily No Start Date Active Vitamin D3 1,000 unit chewable tablet RxNorm: 617638 1 Tablet(s) PO daily No Start Date Active metoprolol succinate ER 100 mg tablet,extended release 24 hr RxNorm: 730121 1 Tablet(s) PO daily No Start Date 09/16/2016 Inactive enalapril maleate 10 mg tablet RxNorm: 890873 1 Tablet(s) PO daily No Start Date 12/25/2015 Inactive perphenazine-amitriptyline 2 mg-10 mg tablet RxNorm: 927612 2 Tablet(s) PO daily No Start Date 06/16/2015 Inactive sucralfate 1 gram tablet RxNorm: 094837 1 Tablet(s) PO TID No Start Date 06/16/2015 Inactive hydrochlorothiazide 25 mg tablet RxNorm: 601185 1 Tablet(s) PO daily No Start Date 08/30/2016 Inactive vitamin E (dl, acetate) 400 unit capsule RxNorm: 377303 1 Capsule(s) PO daily No Start Date 03/05/2018 Inactive sotalol 80 mg tablet RxNorm: 5750003 1 Tablet(s) PO BID No Start Date 01/25/2017 Inactive Synthroid 150 mcg tablet RxNorm: 219379 1 Tablet(s) PO daily No Start Date 12/24/2014 Inactive diltiazem ER 120 mg capsule,24 hr,extended release RxNorm: 093413 1 Capsule(s) PO daily No Start Date 08/28/2018 Inactive simvastatin 20 mg tablet RxNorm: 433354 1 Tablet(s) PO daily No Start Date 11/13/2015 Inactive Vitamin C RxNorm: PO 1000mg qd No Start Date 03/05/2018 Inactive Fosamax 70 mg tablet RxNorm: 582944 1 Tablet(s) PO weekly No Start Date 12/22/2014 Inactive Tricor 145 mg tablet RxNorm: 365576 1 Tablet(s) PO daily No Start Date 04/22/2015 Inactive diltiazem ER 180 mg capsule,24 hr,extended release RxNorm: 869914 1 Capsule(s) PO daily No Start Date 03/05/2018 Inactive diltiazem 120 mg tablet RxNorm: 491778 1 Tablet(s) PO daily No Start Date 08/29/2018 Inactive diltiazem ER 240 mg capsule,extended release RxNorm: 598086 1 Capsule(s) PO BID No Start Date 01/25/2017 Inactive Eliquis 5 mg tablet RxNorm: 3136990 1 Tablet(s) PO BID No Start Date 01/25/2017 Inactive fluticasone 50 mcg/actuation nasal spray,suspension RxNorm: 397686 1 [place] NASAL daily No Start Date 06/11/2015 Inactive atenolol 25 mg tablet RxNorm: 466276 1 Tablet(s) PO daily No Start Date 05/13/2015 Inactive Medication Administered Medication Codes Instructions Start Date Status Kenalog 40 mg/mL suspension for injection RxNorm: 6936304 1Milliliter 08/12/2016 No longer Active Immunizations Vaccine [...] Ord40 Fe-%Sat 19.1 % 08/14/2018 Comp Metabolic Avh149 NA 136 mEq/L 08/14/2018 Comp Metabolic Oxh052 K 4.3 mEq/L 08/14/2018 Comp Metabolic Zws901 CL 100 mEq/L 08/14/2018 Comp Metabolic Mvd922 CO2 28.0 mEq/L 08/14/2018 Comp Metabolic Zzh185 ANION GAP 12 08/14/2018 Comp Metabolic Qlv753 GLUCOSE 111 mg/dL 08/14/2018 Comp Metabolic Rsi386 Creat 0.9 mg/dL 08/14/2018 Comp Metabolic Qmn798 eGFR 66 ml/min/1.73m2 08/14/2018 Comp Metabolic Pck262 BUN 22 mg/dL 08/14/2018 Comp Metabolic Sab960 B/C Ratio 25.3 Ratio 08/14/2018 Comp Metabolic Coi704 CALCIUM 10.1 mg/dL 08/14/2018 Comp Metabolic Cml079 ALK PHOS 45 U/L 08/14/2018 Comp Metabolic Swz824 AST(SGOT) 16 U/L 08/14/2018 Comp Metabolic Qrc288 ALT(SGPT) 7 U/L 08/14/2018 Comp Metabolic Tec859 BILI T 0.4 mg/dL 08/14/2018 Comp Metabolic Uby791 ALBUMIN 4.0 g/dL 08/14/2018 Comp Metabolic Jpv863 TPRO 7.0 g/dL 08/14/2018 Comp Metabolic Men387 GLOB 3.0 g/dL 08/14/2018 Comp Metabolic Ida925 A/G Ratio 1.3 Ratio 08/14/2018 Comp Metabolic Yxr313 Osmo 276 mOsmo 08/14/2018 Cbc With Differential [...] 26.2 pg 08/14/2018 Cbc With Differential Ord2 [place]% 9.1 % 08/14/2018 Cbc With Differential Ord2 Eos% 1.8 % 08/14/2018 Cbc With Differential Ord2 MCHC 31.0 pg 08/14/2018 Cbc With Differential Ord2 PLT 293 K/ul 08/14/2018 Cbc With Differential Ord2 Baso% 0.5 % 08/14/2018 Cbc With Differential Ord2 Neut ABS# 4.34 K/ul 08/14/2018 Cbc With Differential Ord2 Lymph ABS# 0.93 K/ul 08/14/2018 Cbc With Differential Ord2 [place] ABS# 0.5 K/ul 08/14/2018 Cbc With Differential Ord2 Eos ABS# 0.1 K/ul 08/14/2018 Cbc With Differential Ord2 Baso ABS# 0.0 K/ul 08/14/2018 Free T4 Oci940 FREE T4 1.00 ng/dL 08/14/2018 Tibc Ord40 [...] 24.9 pg 06/21/2018 Cbc With Differential Ord2 [place]% 15.0 % 06/21/2018 Cbc With Differential Ord2 [...] 1.35 K/ul 06/21/2018 Cbc With Differential Ord2 [place] ABS# 0.9 K/ul 06/21/2018 Cbc With Differential [...] 24.9 pg 06/01/2018 Cbc With Differential Ord2 [place]% 12.8 % 06/01/2018 Cbc With Differential Ord2 [...] 0.81 K/ul 06/01/2018 Cbc With Differential Ord2 [place] ABS# 0.7 K/ul 06/01/2018 Cbc With Differential [...] 29.9 pg 03/17/2018 Cbc With Differential Ord2 [place]% 13.3 % 03/17/2018 Cbc With Differential Ord2 [...] 0.90 K/ul 03/17/2018 Cbc With Differential Ord2 [place] ABS# 0.8 K/ul 03/17/2018 Cbc With Differential [...] 30.2 pg 02/22/2018 Cbc With Differential Ord2 [place]% 11.5 % 02/22/2018 Cbc With Differential Ord2 [...] 0.86 K/ul 02/22/2018 Cbc With Differential Ord2 [place] ABS# 0.7 K/ul 02/22/2018 Cbc With Differential Ord2 Eos ABS# 0.2 K/ul 02/22/2018 Cbc With Differential Ord2 Baso ABS# 0.1 K/ul 02/22/2018 Tsh Ord6 TSH (3rd IS) 0.66 uIU/mL 02/22/2018 Free T4 Pxa591 FREE T4 1.22 ng/dL 02/22/2018 Comp Metabolic Ofj937 NA 136 mEq/L 02/22/2018 Comp Metabolic Fnw809 K 4.4 mEq/L 02/22/2018 Comp Metabolic Kky896 CL 102 mEq/L 02/22/2018 Comp Metabolic Wzj014 CO2 23.0 mEq/L 02/22/2018 Comp Metabolic Ggy188 ANION GAP 15 02/22/2018 Comp Metabolic Ivf364 GLUCOSE 94 mg/dL 02/22/2018 Comp Metabolic Vjk522 Creat 1.2 mg/dL 02/22/2018 Comp Metabolic Psd395 eGFR 46 ml/min/1.73m2 02/22/2018 Comp Metabolic Acy916 BUN 31 mg/dL 02/22/2018 Comp Metabolic Iue260 B/C Ratio 25.8 Ratio 02/22/2018 Comp Metabolic Fww093 CALCIUM 9.2 mg/dL 02/22/2018 Comp Metabolic Pbm510 ALK PHOS 34 U/L 02/22/2018 Comp Metabolic Rce061 AST(SGOT) 18 U/L 02/22/2018 Comp Metabolic Vay471 ALT(SGPT) 8 U/L 02/22/2018 Comp Metabolic Scz890 BILI T 0.4 mg/dL 02/22/2018 Comp Metabolic Sqg604 ALBUMIN 3.6 g/dL 02/22/2018 Comp Metabolic Tbc331 TPRO 6.2 g/dL 02/22/2018 Comp Metabolic Mcj327 GLOB 2.6 g/dL 02/22/2018 Comp Metabolic Ggx929 A/G Ratio 1.4 Ratio 02/22/2018 Comp Metabolic Qex356 Osmo 278 mOsmo 02/22/2018 Free T4 Gck595 FREE T4 1.11 ng/dL 10/27/2017 Lipid Ord30 [...] 30.7 pg 10/27/2017 Cbc With Differential Ord2 [place]% 11.3 % 10/27/2017 Cbc With Differential Ord2 [...] 1.16 K/ul 10/27/2017 Cbc With Differential Ord2 [place] ABS# 0.6 K/ul 10/27/2017 Cbc With Differential Ord2 Eos ABS# 0.2 K/ul 10/27/2017 Cbc With Differential Ord2 Baso ABS# 0.0 K/ul 10/27/2017 Comp Metabolic Qof906 NA 135 mEq/L 10/27/2017 Comp Metabolic Kgi171 K 4.7 mEq/L 10/27/2017 Comp Metabolic Fml210 CL 101 mEq/L 10/27/2017 Comp Metabolic Gno847 CO2 23.0 mEq/L 10/27/2017 Comp Metabolic Kcp141 ANION GAP 16 10/27/2017 Comp Metabolic Bjk039 GLUCOSE 84 mg/dL 10/27/2017 Comp Metabolic Xyk197 Creat 1.2 mg/dL 10/27/2017 Comp Metabolic Jht224 eGFR 46 ml/min/1.73m2 10/27/2017 Comp Metabolic Nco943 BUN 30 mg/dL 10/27/2017 Comp Metabolic Jui638 B/C Ratio 25.2 Ratio 10/27/2017 Comp Metabolic Esw340 CALCIUM 9.4 mg/dL 10/27/2017 Comp Metabolic Hgw570 ALK PHOS 30 U/L 10/27/2017 Comp Metabolic Gmy340 AST(SGOT) 25 U/L 10/27/2017 Comp Metabolic Evj549 ALT(SGPT) 12 U/L 10/27/2017 Comp Metabolic Ntw743 BILI T 0.5 mg/dL 10/27/2017 Comp Metabolic Blv065 ALBUMIN 3.7 g/dL 10/27/2017 Comp Metabolic Iyq332 TPRO 6.5 g/dL 10/27/2017 Comp Metabolic Pry102 GLOB 2.8 g/dL 10/27/2017 Comp Metabolic Kyp095 A/G Ratio 1.3 Ratio 10/27/2017 Comp Metabolic Rhj793 Osmo 275 mOsmo 10/27/2017 Hgb & Hct Ord65 HGB 12.2 g/dl 07/29/2017 Hgb & Hct Ord65 HCT 38.8 % 07/29/2017 Tibc Ord40 Iron 79 ug/dl 07/26/2017 Tibc Ord40 UIBC 380 ug/dL 07/26/2017 Tibc Ord40 TIBC 459 ug/dL 07/26/2017 Tibc Ord40 Fe-%Sat 17.2 % 07/26/2017 Tsh Ord6 TSH (3rd IS) 0.46 uIU/mL 07/26/2017 Ferritin Ord22 FERRITIN 83.6 ng/mL 07/26/2017 Free T4 Hmj079 FREE T4 1.00 ng/dL 07/26/2017 Tibc Ord40 [...] 31.0 pg 08/02/2016 Cbc With Differential Ord2 [place]% 9.4 % 08/02/2016 Cbc With Differential Ord2 [...] 1.44 K/ul 08/02/2016 Cbc With Differential Ord2 [place] ABS# 0.7 K/ul 08/02/2016 Cbc With Differential Ord2 Eos ABS# 0.3 K/ul 08/02/2016 Cbc With Differential Ord2 Baso ABS# 0.1 K/ul 08/02/2016 Lipid Ord30 CHOL 142 mg/dL 08/02/2016 Lipid Ord30 HDL 40.0 mg/dl 08/02/2016 Lipid Ord30 TRIG 169 mg/dL 08/02/2016 Lipid Ord30 LDL 68 mg/dL 08/02/2016 Lipid Ord30 C/HDL 3.6 Ratio 08/02/2016 Comp Metabolic Izc697 NA 139 mEq/L 08/02/2016 Comp Metabolic Zxa079 K 5.2 mEq/L 08/02/2016 Comp Metabolic Xcp544 CL 108 mEq/L 08/02/2016 Comp Metabolic Ide790 CO2 22.0 mEq/L 08/02/2016 Comp Metabolic Bov043 ANION GAP 14 08/02/2016 Comp Metabolic Fha315 GLUCOSE 103 mg/dL 08/02/2016 Comp Metabolic Pat676 Creat 1.1 mg/dL 08/02/2016 Comp Metabolic Vlr283 eGFR 54 ml/min/1.73m2 08/02/2016 Comp Metabolic Qzc556 BUN 26 mg/dL 08/02/2016 Comp Metabolic Ljq419 B/C Ratio 24.8 Ratio 08/02/2016 Comp Metabolic Nzk083 CALCIUM 9.4 mg/dL 08/02/2016 Comp Metabolic Sag264 ALK PHOS 41 U/L 08/02/2016 Comp Metabolic Pfa723 AST(SGOT) 18 U/L 08/02/2016 Comp Metabolic Qgs149 ALT(SGPT) 10 U/L 08/02/2016 Comp Metabolic Iyn865 BILI T 0.3 mg/dL 08/02/2016 Comp Metabolic Tgq829 ALBUMIN 3.7 g/dL 08/02/2016 Comp Metabolic Xha946 TPRO 6.5 g/dL 08/02/2016 Comp Metabolic Xzl755 GLOB 2.8 g/dL 08/02/2016 Comp Metabolic Hpt836 A/G Ratio 1.3 Ratio 08/02/2016 Comp Metabolic Eqb740 Osmo 283 mOsmo 08/02/2016 Free T4 Oqb835 FREE T4 1.08 ng/dL 08/02/2016 Tsh Ord6 hTSH II 0.35 uIU/mL 05/13/2016 Free T4 Mmk190 FREE T4 0.78 ng/dL 05/13/2016 Free T4 Cae216 FREE T4 1.13 ng/dL 01/28/2016 Tsh Ord6 [...] 30.2 pg 07/14/2015 Cbc With Differential Ord2 [place]% 9.1 % 07/14/2015 Cbc With Differential Ord2 [...] 1.80 K/ul 07/14/2015 Cbc With Differential Ord2 [place] ABS# 0.7 K/ul 07/14/2015 Cbc With Differential [...] Ord30 C/HDL 3.0 Ratio 07/14/2015 Comp Metabolic Rhu856 NA 136 mEq/L 07/14/2015 Comp Metabolic Hvd092 K 4.4 mEq/L 07/14/2015 Comp Metabolic Olq277 CL 101 mEq/L 07/14/2015 Comp Metabolic Sis957 CO2 27.0 mEq/L 07/14/2015 Comp Metabolic Ffd703 ANION GAP 12 07/14/2015 Comp Metabolic Ptv261 GLUCOSE 97 mg/dL 07/14/2015 Comp Metabolic Oxy143 Creat 1.0 mg/dL 07/14/2015 Comp Metabolic Ezz741 eGFR 56 ml/min/1.73m2 07/14/2015 Comp Metabolic Rbl942 BUN 27 mg/dL 07/14/2015 Comp Metabolic Ptu335 B/C Ratio 26.7 Ratio 07/14/2015 Comp Metabolic Que316 CALCIUM 9.3 mg/dL 07/14/2015 Comp Metabolic Mpm120 ALK PHOS 33 U/L 07/14/2015 Comp Metabolic Lir203 AST(SGOT) 14 U/L 07/14/2015 Comp Metabolic Crb479 ALT(SGPT) 8 U/L 07/14/2015 Comp Metabolic Ort444 BILI T 0.4 mg/dL 07/14/2015 Comp Metabolic Swz624 ALBUMIN 3.8 g/dL 07/14/2015 Comp Metabolic Wju266 TPRO 6.6 g/dL 07/14/2015 Comp Metabolic Hfa658 GLOB 2.8 g/dL 07/14/2015 Comp Metabolic Puz633 A/G Ratio 1.4 Ratio 07/14/2015 Comp Metabolic Fom807 Osmo 277 mOsmo 07/14/2015 Tsh Ord6 hTSH II 0.23 uIU/mL 07/14/2015 Free T4 Pat006 FREE T4 1.19 ng/dL 07/14/2015 Cbc With [...] Ord30 C/HDL 3.4 Ratio 03/26/2015 Comp Metabolic Mgc791 NA 135 mEq/L 03/26/2015 Comp Metabolic Ssi744 K 5.0 mEq/L 03/26/2015 Comp Metabolic Tya229 CL 99 mEq/L 03/26/2015 Comp Metabolic Qgu419 CO2 27.0 mEq/L 03/26/2015 Comp Metabolic Uzo241 ANION GAP 14 03/26/2015 Comp Metabolic Jgl546 GLUCOSE 88 mg/dL 03/26/2015 Comp Metabolic Kkb388 Creat 1.1 mg/dL 03/26/2015 Comp Metabolic Aaw762 eGFR 50 ml/min/1.73m2 03/26/2015 Comp Metabolic Zul108 BUN 27 mg/dL 03/26/2015 Comp Metabolic Oks555 B/C Ratio 24.1 Ratio 03/26/2015 Comp Metabolic Zjc078 CALCIUM 9.9 mg/dL 03/26/2015 Comp Metabolic Pqj493 ALK PHOS 30 U/L 03/26/2015 Comp Metabolic Brd081 AST(SGOT) 16 U/L 03/26/2015 Comp Metabolic Hfz939 ALT(SGPT) 8 U/L 03/26/2015 Comp Metabolic Zvz098 BILI T 0.4 mg/dL 03/26/2015 Comp Metabolic Pze443 ALBUMIN 3.9 g/dL 03/26/2015 Comp Metabolic Jzg882 TPRO 6.4 g/dL 03/26/2015 Comp Metabolic Wlb231 GLOB 2.5 g/dL 03/26/2015 Comp Metabolic Jpp305 A/G Ratio 1.6 Ratio 03/26/2015 Comp Metabolic Sjc405 Osmo 275 mOsmo 03/26/2015 Free T4 Uoe691 FREE T4 1.22 ng/dL 03/26/2015 Tsh Ord6 hTSH II 0.20 uIU/mL 03/26/2015 Vitamin D 25 Oh Svx9732 VITAMIN D, 25 HYDROXY 51.09 ng/mL 12/25/2014 Tsh Ord6 hTSH II 0.09 uIU/mL 12/23/2014 Free T4 Hew641 FREE T4 1.30 ng/dL 12/23/2014 Comp Metabolic Lvx042 NA 135 mEq/L 12/23/2014 Comp Metabolic Hgy640 K 4.7 mEq/L 12/23/2014 Comp Metabolic Enh133 CL 100 mEq/L 12/23/2014 Comp Metabolic Pqa806 CO2 23.0 mEq/L 12/23/2014 Comp Metabolic Egb104 ANION GAP 17 12/23/2014 Comp Metabolic Zah655 GLUCOSE 93 mg/dL 12/23/2014 Comp Metabolic Ezj147 Creat 1.1 mg/dL 12/23/2014 Comp Metabolic Ppg855 eGFR 53 ml/min/1.73m2 12/23/2014 Comp Metabolic Npg612 BUN 26 mg/dL 12/23/2014 Comp Metabolic Nlt211 B/C Ratio 24.3 Ratio 12/23/2014 Comp Metabolic Pby498 CALCIUM 9.5 mg/dL 12/23/2014 Comp Metabolic Wbe860 ALK PHOS 27 U/L 12/23/2014 Comp Metabolic Tdw506 AST(SGOT) 16 U/L 12/23/2014 Comp Metabolic Gze401 ALT(SGPT) 8 U/L 12/23/2014 Comp Metabolic Dvq790 BILI T 0.4 mg/dL 12/23/2014 Comp Metabolic Iov411 ALBUMIN 3.9 g/dL 12/23/2014 Comp Metabolic Zaj157 TPRO 6.7 g/dL 12/23/2014 Comp Metabolic Nax944 GLOB 2.8 g/dL 12/23/2014 Comp Metabolic Bec309 A/G Ratio 1.4 Ratio 12/23/2014 Comp Metabolic Aen951 Osmo 275 mOsmo 12/23/2014 Review of Systems [...] back and shoulders Full Exam - General 1995 Neurologic cranial nerves Overall: crainial nerves 2 [...] hygiene 10/27/2017 None Full Exam - General 1995 Eyes conjunctiva/eyelids Overall: conjunctiva clear 10/27/2017 None [...] lips 07/26/2017 None Full Exam - General 1995 Ears/Nose/Throat [...] inspection of skin Consistency: thick 03/31/2015 left anglican and left nasal bridge - actinic keratosis [...] SUBSEQ VISIT CPT- 4: G0439 05/05/2018 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-[address]: 098719164 CPT-4: G0436 04/11/2017 PNEUMOCOCCAL VACC [address]: 04131652 CPT-4: 90033 02/09/2017 FLU VACC PRSV FREE INC ANTIG CPT-4: 32384 02/09/2017 ADMIN INFLUENZA VIRUS VAC CPT-4: G0008 02/09/2017 ADMIN PNEUMOCOCCAL VACCINE SNOMED CT: 59914270 CPT-4: G0009 02/09/2017 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-[address]: 159568578 CPT-4: G0436 02/07/2017 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-[address]: 698015560 CPT-4: G0436 10/19/2016 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-[address]: 874414803 CPT-4: G0436 08/31/2016 TRIAMCINOLONE ACET INJ NOS CPT-4: J3301 08/12/2016 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-[address]: 587715255 CPT-4: G0436 07/28/2016 ADMIN INFLUENZA VIRUS VAC CPT-4: G0008 01/28/2016 FLU VACC 4 JULISA 3 YRS PLUS IM SNOMED CT: 70971397 CPT-4: 31026 01/28/2016 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-[address]: 977947610 CPT-4: G0436 07/29/2015 Vital Signs Date Vital 08/21/2018 Blood Pressure 1: 144/82 Code: 8480-6 BMI: 23.9 Code: 56160-7 Heart Rate 1: 99 bpm Height: 5'4" SpO2: 95% Weight: 139 lbs 07/17/2018 Blood Pressure 1: 126/54 Code: 8480-6 BMI: 24.4 Code: 72361-9 Heart Rate 1: 70 bpm Height: 5'4" SpO2: 98% Weight: 142 lbs 06/05/2018 Blood Pressure 1: 122/60 Code: 8480-6 BMI: 25.4 Code: 84821-0 Heart Rate 1: 74 bpm Height: 5'4" SpO2: 98% Weight: 148 lbs 05/05/2018 Blood Pressure 1: 130/64 Code: 8480-6 BMI: 25.1 Code: 03248-8 Heart Rate 1: 72 bpm Height: 5'4" SpO2: 97% Weight: 146 lbs 04/03/2018 Blood Pressure 1: 142/80 Code: 8480-6 BMI: 25.2 Code: 47311-9 Heart Rate 1: 99 bpm Height: 5'4" SpO2: 97% Weight: 147 lbs 03/06/2018 Blood Pressure 1: 140/80 Code: 8480-6 BMI: 26.1 Code: 00444-0 Heart Rate 1: 71 bpm Height: 5'4" SpO2: 98% Weight: 152 lbs 02/22/2018 Blood Pressure 1: 146/68 Code: 8480-6 BMI: 26.6 Code: 88921-9 Heart Rate 1: 88 bpm Height: 5'4" SpO2: 97% Weight: 155 lbs 12/13/2017 Blood Pressure 1: 132/68 Code: 8480-6 BMI: 26.6 Code: 80106-5 Heart Rate 1: 72 bpm Height: 5'4" SpO2: 94% Weight: 154 lbs 14 oz 11/29/2017 Blood Pressure 1: 130/64 Code: 8480-6 BMI: 26.1 Code: 76547-9 Heart Rate 1: 81 bpm Height: 5'4" SpO2: 94% Weight: 152 lbs 10/27/2017 Blood Pressure 1: 120/62 Code: 8480-6 BMI: 25.9 Code: 09289-7 Heart Rate 1: 70 bpm Height: 5'4" SpO2: 96% Weight: 151 lbs 07/26/2017 Blood Pressure 1: 146/70 Code: 8480-6 BMI: 26.3 Code: 76540-0 Heart Rate 1: 69 bpm Height: 5'4" SpO2: 98% Weight: 153 lbs 05/26/2017 Blood Pressure 1: 142/76 Code: 8480-6 BMI: 26.4 Code: 23864-5 Heart Rate 1: 59 bpm Height: 5'4" SpO2: 99% Weight: 154 lbs 04/11/2017 Blood Pressure 1: 134/64 Code: 8480-6 BMI: 26.6 Code: 23192-5 Heart Rate 1: 65 bpm Height: 5'4" SpO2: 98% Weight: 155 lbs 02/07/2017 Blood Pressure 1: 120/72 Code: 8480-6 Heart Rate 1: 72 bpm Height: 5'4" SpO2: 96% Weight: 01/26/2017 Blood Pressure 1: 146/68 Code: 8480-6 BMI: 26.4 Code: 82031-4 Heart Rate 1: 96 bpm Height: 5'4" SpO2: 97% Weight: 154 lbs 10/19/2016 Blood Pressure 1: 144/76 Code: 8480-6 BMI: 25.8 Code: 91688-2 Heart Rate 1: 68 bpm Height: 5'4" SpO2: 96% Weight: 150 lbs 8 oz 09/22/2016 Blood Pressure 1: 122/80 Code: 8480-6 BMI: 26.1 Code: 99797-0 Heart Rate 1: 111 bpm Height: 5'4" SpO2: 97% Weight: 152 lbs 08/31/2016 Blood Pressure 1: 152/82 Code: 8480-6 BMI: 27.1 Code: 08564-1 Heart Rate 1: 118 bpm Height: 5'4" SpO2: 96% Weight: 158 lbs 08/12/2016 Blood Pressure 1: 146/78 Code: 8480-6 BMI: 26.9 Code: 70082-2 Heart Rate 1: 68 bpm Height: 5'4" SpO2: 97% Weight: 157 lbs 07/28/2016 Blood Pressure 1: 128/64 Code: 8480-6 BMI: 27.1 Code: 43040-6 Heart Rate 1: 63 bpm Height: 5'4" SpO2: 97% Weight: 158 lbs 01/28/2016 Blood Pressure 1: 130/70 Code: 8480-6 BMI: 27.3 Code: 21323-3 Heart Rate 1: 60 bpm Height: 5'4" SpO2: 95% Weight: 159 lbs 07/29/2015 Blood Pressure 1: 136/80 Code: 8480-6 BMI: 28.1 Code: 04961-2 Heart Rate 1: 68 bpm Height: 5'4" SpO2: 96% Weight: 163 lbs 8 oz 03/31/2015 Blood Pressure 1: 138/88 Code: 8480-6 BMI: 27.5 Code: 06589-5 Heart Rate 1: 72 bpm Height: 5'4" Weight: 160 lbs 12/23/2014 Blood Pressure 1: 138/68 Code: 8480-6 BMI: 27.1 Code: 01257-3 Heart Rate 1: 63 bpm Height: 5'4" [...] data Encounters Encounter Performer Location Codes Date [id number] EST. PATIENT, LEVEL IV Diagnosis: Atrophy of thyroid (acquired)[ICD10: E03.4] Diagnosis: Other iron deficiency anemias[ICD10: D50.8] Diagnosis: Pain in right hip[ICD10: M25.551] Diagnosis: Essential (primary) hypertension[ICD10: I10] Kandi Cabrera MD, [facility] CPT-4: 46565 08/21/2018 ([id number]) 59438 EST. PATIENT, LEVEL IV Diagnosis: Essential (primary) hypertension[ICD10: I10] Diagnosis: Other iron deficiency anemias[ICD10: D50.8] Diagnosis: Tobacco abuse counseling[ICD10: Z71.6] Diagnosis: Chronic atrial fibrillation[ICD10: I48.2] Kandi Cabrera MD, [facility] CPT-4: 04679 07/17/2018 ([id number]) BEHAV CHNG SMOKING 3-10 MIN Diagnosis: [ICD9: ] Diagnosis: [ICD9: ] Diagnosis: [ICD9: ] Diagnosis: [ICD9: ] Kandi Cabrera MD, [facility] CPT-4: 75651 07/17/2018 ([id number]) 47172 EST. PATIENT, LEVEL IV Diagnosis: Other specified anemias[ICD10: D64.89] Diagnosis: Other insomnia[ICD10: G47.09] Diagnosis: Atrophy of thyroid (acquired)[ICD10: E03.4] Diagnosis: Allergic urticaria[ICD10: L50.0] Kandi Cabrera MD, [facility] CPT-4: 31766 06/05/2018 ([id number]) 60663 EST. PATIENT, LEVEL IV Diagnosis: Essential (primary) hypertension[ICD10: I10] Diagnosis: Nonrheumatic aortic (valve) stenosis[ICD10: I35.0] Diagnosis: Atrophy of thyroid (acquired)[ICD10: E03.4] Diagnosis: Chronic atrial fibrillation[ICD10: I48.2] Kandi Cabrera MD [facility] CPT-4: 52114 04/03/2018 ([id number]) 31204 EST. PATIENT, LEVEL IV Diagnosis: Essential (primary) hypertension[ICD10: I10] Diagnosis: Chronic atrial fibrillation[ICD10: I48.2] Diagnosis: Nonrheumatic aortic (valve) stenosis[ICD10: I35.0] Diagnosis: Age-related osteoporosis without current pathological fracture[ICD10: M81.0] Kandi Cabrera MD, [facility] CPT-4: 45192 03/06/2018 [id number] EST. PATIENT, LEVEL III Diagnosis: Low back pain[ICD10: M54.5] Diagnosis: Dysuria[ICD10: R30.0] Diagnosis: Gastro-esophageal reflux disease without esophagitis[ICD10: K21.9] Payton Cabrera MD, [facility] CPT-4: 63248 02/22/2018 ([id number]) 14267 EST. PATIENT, LEVEL III Diagnosis: Atrophy of thyroid (acquired)[ICD10: E03.4] Diagnosis: Other iron deficiency anemias[ICD10: D50.8] Diagnosis: Epigastric pain[ICD10: R10.13] Kandi Cabrera MD [facility] CPT-4: 84443 12/13/2017 ([id number]) 42430 EST. PATIENT, LEVEL IV Diagnosis: Diverticulitis of large intestine without perforation or abscess without bleeding[ICD10: K57.32] Kandi Cabrera MD [facility] CPT-4: 15231 11/29/2017 ([id number]) 19807 EST. PATIENT, LEVEL IV Diagnosis: Atrophy of thyroid (acquired)[ICD10: E03.4] Diagnosis: Other iron deficiency anemias[ICD10: D50.8] Diagnosis: Epigastric pain[ICD10: R10.13] Diagnosis: Right lower quadrant pain[ICD10: R10.31] Diagnosis: Left lower quadrant pain[ICD10: R10.32] Kandi Cabrera MD [facility] CPT-4: 51172 10/27/2017 13160 EST. PATIENT, LEVEL IV Diagnosis: Atrophy of thyroid (acquired)[ICD10: E03.4] Diagnosis: Other iron deficiency anemias[ICD10: D50.8] Diagnosis: Essential (primary) hypertension[ICD10: I10] Diagnosis: Gastro-esophageal reflux disease without esophagitis[ICD10: K21.9] Payton Cabrera MD, [facility] CPT-4: 66524 07/26/2017 ([id number]) 06153 EST. PATIENT, LEVEL IV Diagnosis: Other iron deficiency anemias[ICD10: D50.8] Diagnosis: Atrophy of thyroid (acquired)[ICD10: E03.4] Diagnosis: Tobacco use[ICD10: Z72.0] Diagnosis: Essential (primary) hypertension[ICD10: I10] Diagnosis: Low back pain[ICD10: M54.5] Kandi Cabrera MD, [facility] CPT-4: 69811 05/26/2017 ([id number]) 51824 EST. PATIENT, LEVEL IV Diagnosis: Shortness of breath[ICD10: R06.02] Diagnosis: Tobacco use[ICD10: Z72.0] Diagnosis: Chronic atrial fibrillation[ICD10: I48.2] Kandi Cabrera MD, [facility] CPT-4: 30964 04/11/2017 ([id number]) 06292 EST. PATIENT, LEVEL III Diagnosis: Unsteadiness on feet[ICD10: R26.81] Diagnosis: Tobacco use[ICD10: Z72.0] Kandi Cabrera MD, [facility] CPT-4: 97813 02/07/2017 ([id number]) 33439 EST. PATIENT, LEVEL IV Diagnosis: Cough[ICD10: R05] Diagnosis: Essential (primary) hypertension[ICD10: I10] Diagnosis: Chronic atrial fibrillation[ICD10: I48.2] Diagnosis: Unsteadiness on feet[ICD10: R26.81] Kandi Cabrera MD, [facility] CPT- 4: 96114 01/26/2017 ([id number]) 49849 EST. PATIENT, LEVEL IV Diagnosis: Essential (primary) hypertension[ICD10: I10] Diagnosis: Atrophy of thyroid (acquired)[ICD10: E03.4] Diagnosis: Tobacco use[ICD10: Z72.0] Diagnosis: Chronic atrial fibrillation[ICD10: I48.2] Diagnosis: Mixed hyperlipidemia[ICD10: E78.2] Kandi Cabrera MD, [facility] CPT- 4: 86182 10/19/2016 ([id number]) 28283 EST. PATIENT, LEVEL IV Diagnosis: Atrophy of thyroid (acquired)[ICD10: E03.4] Diagnosis: Mixed hyperlipidemia[ICD10: E78.2] Diagnosis: Essential (primary) hypertension[ICD10: I10] Kandi Cabrera MD [facility] CPT-4: 59445 09/22/2016 ([id number]) 26569 EST. PATIENT, LEVEL IV Diagnosis: Essential (primary) hypertension[ICD10: I10] Diagnosis: Atrophy of thyroid (acquired)[ICD10: E03.4] Diagnosis: Chronic atrial fibrillation[ICD10: I48.2] Knadi Cabrera MD, [facility] CPT-4: 78916 08/31/2016 ([id number]) 25749 EST. PATIENT, LEVEL III Diagnosis: Low back pain[ICD10: M54.5] Diagnosis: Sacroiliitis, not elsewhere classified[ICD10: M46.1] Janeen Cabrera MD, [facility] CPT-4: 51552 08/12/2016 ([id number]) 63887 EST. PATIENT, LEVEL IV Diagnosis: Mixed hyperlipidemia[ICD10: E78.2] Diagnosis: Essential (primary) hypertension[ICD10: I10] Diagnosis: Atrophy of thyroid (acquired)[ICD10: E03.4] Kandi Cabrera MD, [facility] CPT-4: 28682 07/28/2016 ([id number]) 20789 EST. PATIENT, LEVEL IV Diagnosis: Hypothyroidism, unspecified[ICD10: E03.9] Diagnosis: Essential (primary) hypertension[ICD10: I10] Diagnosis: Mixed hyperlipidemia[ICD10: E78.2] Diagnosis: Cellulitis of left lower limb[ICD10: L03.116] Diagnosis: Encounter for immunization[ICD10: Z23] Kandi Cabrera MD, [facility] CPT-4: 98571 01/28/2016 ([id number]) 46176 EST. PATIENT, LEVEL IV Diagnosis: Essential (primary) hypertension[ICD10: I10] Diagnosis: Hypothyroidism, unspecified[ICD10: E03.9] Diagnosis: Diarrhea, unspecified[ICD10: R19.7] Diagnosis: Tobacco use[ICD10: Z72.0] Diagnosis: Tobacco abuse counseling[ICD10: Z71.6] Diagnosis: Other obesity due to excess calories[ICD10: E66.09] Kandi Cabrera MD, [facility] CPT-4: 10825 07/29/2015 ([id number]) 89456 EST. PATIENT, LEVEL IV Diagnosis: Essential (primary) hypertension[ICD10: I10] Diagnosis: Hypothyroidism, unspecified[ICD10: E03.9] Diagnosis: Actinic keratosis[ICD10: L57.0] Kandi Cabrera MD, [facility] CPT-4: 63727 03/31/2015 ([id number]) OFFICE VISIT, NEW - LEVEL 4 Diagnosis: ESSENTIAL HYPERTENSION[ICD9: 401.9] Diagnosis: HYPOTHYROIDISM[ICD9: 244.9] Diagnosis: HYPERLIPIDEMIA[ICD9: 272.4] Diagnosis: Osteoporosis[ICD9: 733.00] Diagnosis: OSTEOARTH NOS-UNSPEC[ICD9: 715.90] Diagnosis: Sacroiliitis[ICD9: 720.2] Kandi Cabrera MD, [facility] CPT-4: 35662 12/23/2014 Plan of Care Planned Activity Notes [...] valve replacement. 08/21/2018 Appointment[phone] ([facility] min) Moderate 08/21/2018 Patient Education: Patient [...] cardiovascular status. 07/17/2018 Appointment: Kandi Cabrera WPtel: [phone] [facility] (15 min) Moderate 07/17/2018 Patient Education: Patient Medication Summary Completed 07/17/2018 Patient Education: Hypertension Completed 07/17/2018 Appointment: [phone] [facility] (15 min) Moderate 07/11/2018 Visit Plan: Hypothyroidism [...] hydroxyzine. 06/05/2018 Appointment: [phone] [facility] (15 min) Moderate 06/05/2018 Patient Education: Patient [...] Completed 05/05/2018 Appointment: Kandi Cabrera WPtel: [phone] [facility] (15 min) Moderate 04/11/2018 Visit Plan: Hypertension [...] improving. 04/03/2018 Appointment: Kandi Cabrera WPtel: [phone] [facility] (15 min) Moderate 04/03/2018 Patient Education: Patient [...] a conversation about surgical intervention with her Television Service Engineer. 03/06/2018 Appointment: Kandi Cabrera WPtel: [phone] [facility] [place] (15 min) Moderate 03/06/2018 Patient Education: Patient [...] not improving. 02/22/2018 Appointment: Payton Leon WPtel: [facility] [place] (15 min) Moderate 02/22/2018 Patient Education: Patient Medication Summary Completed 02/22/2018 Patient Education: Back Pain Completed 02/22/2018 Visit Plan: Diarrhea - improved - pt advised to avoid seeds, nuts, popcorn, or any other food which has been proven to upset the pt's stomach. 12/13/2017 Appointment: [phone] [facility] [place] (15 min) Moderate 12/13/2017 Patient Education: Patient Medication Summary Completed 12/13/2017 Visit Plan: Diverticulitis - rx for antibiotic sent to pt's pharmacy - pt advised to avoid seeds, nuts, popcorn, or any other food which has been proven to upset the pt's stomach. 11/29/2017 Appointment: Kandi Cabrera WPtel: [facility]5 [facility] (15 min) Moderate 11/29/2017 Patient Education: Patient Medication Summary Completed 11/29/2017 Appointment: Kandi Cabrera WPtel: [address] [place], [place] [phone] (15 min) Moderate 11/24/2017 Visit Plan: Abdominal [...] 10 days 10/27/2017 Appointment: Kandi Cabrera WPtel: [address] [place], [place] [phone] (15 min) Moderate 10/27/2017 Patient Education: Patient [...] the symptoms are not improving. 07/26/2017 Appointment: [phone] (30 min) Complex 07/26/2017 Patient Education: Patient Medication Summary Completed 07/26/2017 Care Plan: Iron Pending 07/26/2017 Care Plan: Referral Order SNOMED-CT : [id number] Pending 07/26/2017 Visit Plan: Hypertension - well [...] recommended. 05/26/2017 Appointment: [phone] (15 min) Moderate 05/26/2017 Patient Education: Patient Medication Summary Completed 05/26/2017 Patient Education: Patient Medication Summary Completed 05/19/2017 Care Plan: Iron Pending 05/19/2017 Visit Plan: Dyspnea on Exertion - uncontrolled - I have recommended pt to have Pulmonary function studies as well as a referral back to her Television Service Engineer - Dr. Hanna - I suspect she [...] 04 pt's has appt with Dr. Jacques Tobaccoism - again discussed the need for the patient to stop smoking. I have recommended cutting back slowly - pt will continue to attempt to decrease intake, but states that she does "not ever think I will be completely off of cigarettes". 04/11/2017 Appointment: Kandi Cabrera WPtel: [phone] [facility] (15 min) Moderate 04/11/2017 Patient Education: Patient Medication Summary Completed 04/11/2017 Patient Education: Smoking and Tobacco Addiction Completed 04/11/2017 Care Plan: Referral Order SNOMED-CT : [id number] Pending 04/11/2017 Appointment: Kandi Cabrera WPtel: [phone] [facility] (15 min) Moderate 02/14/2017 Appointment: Injection 02/09/2017 Referral: [facility] WPtel: [phone] Patient informed. Completed 02/09/2017 Patient Education: Patient Medication Summary Completed 02/09/2017 Patient Education: Smoking and Tobacco Addiction Completed 02/09/2017 Visit Plan: Tobacco abuse - chronic condition for this patient. Patient has been counseled about need to stop smoking due to the negative health affects. Pt has vocalized understanding and states that they will con environmental science program director smoking cessation, but the pt is not yet ready to use medication to assist cessation. Rx for wellbutrin 75mg 1/2 pill bid. Gait instability - referral to [facility] for [facility] instability 02/07/2017 Appointment: Kandi Cabrera WPtel: [phone] [facility] (15 min) Moderate 02/07/2017 Patient Education: Patient Medication Summary Completed 02/07/2017 Patient Education: Smoking and Tobacco Addiction Completed 02/07/2017 Care Plan: Referral Order SNOMED-CT : [id number] Pending 02/07/2017 Visit Plan: Cough - pt [...] uncontrolled. 01/26/2017 Appointment: [phone] (15 min) Moderate 01/26/2017 Patient Education: Patient [...] per week. 10/19/2016 Appointment: [phone] [facility] (15 min) Moderate 10/19/2016 Patient Education: Patient Medication Summary Completed 10/19/2016 Patient Education: Smoking and Tobacco Addiction Completed 10/19/2016 Patient Education: Hypertension Completed 10/19/2016 Visit Plan: Atrial Fibrillation - pt on chronic anticoagulation and is not optimally rate controlled. Pt is to see her lead c developer tomorrow, will discuss with him her plans [...] of control. 09/22/2016 Appointment: Kandi Cabrera WPtel: [facility]5 [facility] (15 min) Moderate 09/22/2016 Patient Education: Patient [...] q 3 months or q 6 m [facility] based on previous levels of control. 08/31/2016 Appointment: Kandi Cabrera WPtel: [facility] (15 min) Moderate 08/31/2016 Patient Education: Patient Medication Summary Completed 08/31/2016 Patient Education: Smoking and Tobacco Addiction Completed 08/31/2016 Patient Education: Hypertension Completed 08/31/2016 Visit Plan: Sacroiliitis -kenalog injection today in the office- tylenol as directed-heat as directed-xray lumbar spine. Pt is to call if the symptoms do not improve or if they worsen. 08/12/2016 Appointment: Janeen Marsh WPtel: [phone] [phone] (30 min) Complex 08/12/2016 Patient Education: Patient Medication Summary Completed 08/12/2016 Patient Education: Smoking and Tobacco Addiction Completed 08/12/2016 Appointment: Payton Leon WPtel: [phone] [facility] [facility] - Annual Wellness Visit 07/30/2016 [...] medications. 07/28/2016 Appointment: [phone] (15 min) Moderate 07/28/2016 Patient Education: Patient [...] shot today 01/28/2016 Appointment: Kandi Cabrera WPtel: [address] [place], [place] [address] [place] (15 min) Moderate 01/28/2016 Patient Education: [...] activity 07/29/2015 Appointment: [phone] [facility] (15 min) Moderate 07/29/2015 Patient Education: Patient [...] of control. A ctinic keratosis - left anglican and left nasal bridge - pt to use efudex on the lesions on the nose and face. 03/31/2015 Appointment: Kandi Cabrera [facility]el: [phone] [facility] [place] (15 min) Moderate 03/31/2015 Patient Education: [...] levels. 12/23/2014 Appointment: [phone] [place] ([place]) New Patient 12/23/2014 Patient Education: Patient Medication Summary Completed 12/23/2014 Patient Education: Hypertension Completed 12/23/2014 Care Plan: Referral Order SNOMED-CT : [id number] Ordered 12/23/2014 Referral: External, Ordering Provider Referral Completed Referral: External, Ordering Provider Referral Appointment Requested Referral: Maggi Reaves Referral Initiated [phone] Referral Appointment Requested Referral: External, Ordering [...] well as a referral back to her Television Service Engineer - Dr. Hanna - I suspect she [...] pill bid. Gait instability - referral to [facility] for gait instability . Hypertension - well [...] rate controlled. Pt is to see her lead c developer tomorrow, will discuss with him her plans [...] a conversation about surgical intervention with her Television Service Engineer. . Hypertension - well controlled - continue [...] improve or if they worsen. PROBIOTIC - Familybuilder, RaisedDigital, lactobacilus/acidophilis brand probiotic - these can be [...] levels of control. Actinic keratosis - left anglican and left nasal bridge - pt to [...]
[2018-12-29] MEDS ORDERED: morphine INJ 10 MG/ML 1ML (SYR OR VIAL) ONE (13:38)
--- OUTSIDE RECORDS SUMMARY | 2018-12-29 13:39 | XMS REPORT | CCD ---
Author Author Kandi Cabrera Organization Kandi Cabrera MD, [facility] Address [address] [place] [address] Phone Care Team Providers Care Emergency Room Tech Name Role Phone PP Unavailable CCM Unavailable Summary Purpose Interface Exchange Insurance Providers Payer name Policy type / Coverage type Covered libertarian ID Effective Begin Date Effective End Date [facility] Commercial Insurance [id number] Unknown WPS Medicare Part B Commercial Insurance [id number] 2017 Unknown Family history Father Diagnosis Age [...] Unknown Retired 12/23/[address]: 80780471 Current every day smoker 12/23/2014 Number of years using tobacco Unknown > 50 trying to quit 12/23/2014 Number of cigarettes/day Unknown 10 (Half a pack) 12/23/[address]: 713833608 Never drinks alcohol 12/23/2014 Allergies, Adverse Reactions, Alerts Substance Reaction Codes Entered Date Inactivated Date Status ciprofloxacin RxNorm: 05158 05/05/2018 No Inactive Date Active SULFA(SULFONAMIDE ANTIBIOTICS) [...] Start Date Stop Date Status Fill Instructions perphenazine-amitriptyline 2 mg-10 mg tablet RxNorm: 748692 2 Tablet(s) PO daily 08/15/2018 11/07/2019 Active PA approved: [id number] perphenazine-amitriptyline 2 mg-10 mg tablet RxNorm: 255882 2 Tablet(s) PO daily 08/15/2018 08/14/2018 Inactive PA approved: need 7 days while waiting on mail order perphenazine-amitriptyline 2 mg-10 mg tablet RxNorm: 727344 2 Tablet(s) PO daily 08/04/2018 08/03/2018 Inactive waiting on mail order perphenazine-amitriptyline 2 mg-10 mg tablet RxNorm: 499182 2 Tablet(s) PO daily 08/04/2018 08/03/2018 Inactive perphenazine-amitriptyline 2 mg-10 mg tablet RxNorm: 820356 2 Tablet(s) PO daily 08/04/2018 08/14/2018 Inactive Tricor 145 mg tablet RxNorm: 189482 1 Tablet(s) PO daily 07/17/2018 10/09/2019 Active pantoprazole 40 mg tablet,delayed release RxNorm: 674552 1 Tablet(s) PO daily 07/17/2018 10/09/2019 Active hydroxyzine HCl 25 mg tablet RxNorm: 753168 2 Tablet(s) PO QHS may increase to two pills at hs if allergic reactions are occuring 07/17/2018 11/13/2018 Active Synthroid 100 mcg tablet RxNorm: 630498 1 Tablet(s) PO daily 06/05/2018 08/28/2019 Active hydroxyzine HCl 25 mg tablet RxNorm: 844323 1 Tablet(s) PO QHS may increase to two pills at hs if allergic reactions are occuring 06/05/2018 07/16/2018 Inactive Lasix 20 mg tablet RxNorm: 089173 1 Tablet(s) PO daily as needed not more than one time a day 05/19/2018 09/15/2018 Active prednisone 20 mg tablet RxNorm: 902083 2 Tablet(s) PO daily 02/22/2018 02/26/2018 Inactive Cipro 500 mg tablet RxNorm: 901980 1 Tablet(s) PO BID 02/22/2018 02/28/2018 Inactive potassium chloride ER 10 mEq tablet,extended release RxNorm: 855779 1 Tablet(s) PO UD take on days that you take a lasix pill 02/13/2018 02/07/2019 Active Synthroid 100 mcg tablet RxNorm: 337211 1 Tablet(s) PO daily 02/13/2018 06/04/2018 Inactive simvastatin 20 mg tablet RxNorm: 795544 1 Tablet(s) PO QHS 01/13/2018 01/07/2019 Active metronidazole 500 mg tablet RxNorm: 781653 1 Tablet(s) PO TID 11/29/2017 12/08/2017 Inactive alendronate 70 mg tablet RxNorm: 127676 1 Tablet(s) PO weekly 11/29/2017 03/05/2018 Inactive omeprazole 40 mg capsule,delayed release RxNorm: 800801 1 Capsule(s) PO daily 11/11/2017 07/16/2018 Inactive Flagyl 500 mg tablet RxNorm: 815539 1 Tablet(s) PO TID 10/27/2017 11/05/2017 Inactive sucralfate 1 gram tablet RxNorm: 260301 1 Tablet(s) PO TID 07/26/2017 07/20/2018 Inactive fluticasone 50 mcg/actuation nasal spray,suspension RxNorm: 6828604 1 [place] NASAL daily 07/26/2017 No Stop Date Active Protonix 40 mg tablet,delayed release RxNorm: 712645 1 Tablet(s) PO daily 07/26/2017 10/23/2017 Inactive Tricor 145 mg tablet RxNorm: 372495 1 Tablet(s) PO daily 05/26/2017 05/20/2018 Inactive perphenazine-amitriptyline 2 mg-10 mg tablet RxNorm: 200250 2 Tablet(s) PO daily 05/26/2017 05/20/2018 Inactive bupropion HCl 75 mg tablet RxNorm: 874163 1/2 Tablet(s) PO BID 02/07/2017 05/07/2017 Inactive Eliquis 5 mg tablet RxNorm: 1776849 1 Tablet(s) PO BID 01/26/2017 01/20/2018 Inactive sotalol 80 mg tablet RxNorm: 4554839 1 Tablet(s) PO BID 01/26/2017 04/20/2018 Inactive potassium chloride ER 10 mEq tablet,extended release RxNorm: 999716 1 Tablet(s) PO UD take on days that you take a lasix pill 01/26/2017 01/20/2018 Inactive Synthroid 100 mcg tablet RxNorm: 668384 1 Tablet(s) PO daily 01/26/2017 02/12/2018 Inactive diltiazem ER 240 mg capsule,extended release RxNorm: 995073 1 Capsule(s) PO BID 01/26/2017 05/03/2017 Inactive Lasix 20 mg tablet RxNorm: 672500 1 Tablet(s) PO daily as needed not more than one time a day 01/26/2017 05/25/2017 Inactive simvastatin 20 mg tablet RxNorm: 480457 1 Tablet(s) PO QHS 12/21/2016 12/15/2017 Inactive alendronate 70 mg tablet RxNorm: 748847 1 Tablet(s) PO weekly 12/21/2016 11/28/2017 Inactive omeprazole 40 mg capsule,delayed release RxNorm: 120520 1 Capsule(s) PO daily 10/19/2016 10/12/2017 Inactive metoprolol succinate ER 100 mg tablet,extended release 24 hr RxNorm: 700186 1.5 Tablet(s) PO daily 09/17/2016 10/18/2016 Inactive Dosage increased by Dr. Vazquez potassium chloride ER 10 mEq tablet,extended release RxNorm: 485820 1 Tablet(s) PO UD take on days that you take a lasix pill 08/31/2016 12/28/2016 Inactive Lasix 20 mg tablet RxNorm: 356560 1 Tablet(s) PO daily as needed not more than one time a day 08/31/2016 12/28/2016 Inactive Kenalog 40 mg/mL suspension for injection RxNorm: 3010745 1 Milliliter(s) Inj 08/12/2016 08/12/2016 Inactive Tricor 145 mg tablet RxNorm: 591506 1 Tablet(s) PO daily 05/21/2016 05/15/2017 Inactive atenolol 25 mg tablet RxNorm: 294564 1 Tablet(s) PO daily 05/21/2016 08/30/2016 Inactive sucralfate 1 gram tablet RxNorm: 591293 1 Tablet(s) PO TID 05/21/2016 05/15/2017 Inactive enalapril maleate 10 mg tablet RxNorm: 817591 1 Tablet(s) PO daily 04/26/2016 08/30/2016 Inactive perphenazine-amitriptyline 2 mg-10 mg tablet RxNorm: 805161 2 Tablet(s) PO daily 04/26/2016 04/20/2017 Inactive fluticasone 50 mcg/actuation nasal spray,suspension RxNorm: 3928826 1 [place] NASAL daily 04/26/2016 07/25/2017 Inactive Synthroid 100 mcg tablet RxNorm: 528030 1 Tablet(s) PO daily 02/09/2016 01/25/2017 Inactive Synthroid 100 mcg tablet RxNorm: 129938 1 Tablet(s) PO daily 02/09/2016 02/08/2016 Inactive Keflex 500 mg capsule RxNorm: 287261 1 Capsule(s) PO TID 01/28/2016 02/01/2016 Inactive hydrochlorothiazide 25 mg tablet RxNorm: 508758 TAKE 1 TABLET DAILY 01/07/2016 08/30/2016 Inactive enalapril maleate 10 mg tablet RxNorm: 271983 1 Tablet(s) PO daily 12/26/2015 04/25/2016 Inactive hydrochlorothiazide 25 mg tablet RxNorm: 632214 1 Tablet(s) PO daily 12/08/2015 08/30/2016 Inactive omeprazole 40 mg capsule,delayed release RxNorm: 009745 1 Capsule(s) PO daily 12/08/2015 10/18/2016 Inactive simvastatin 20 mg tablet RxNorm: 215129 1 Tablet(s) PO QHS 11/14/2015 11/07/2016 Inactive alendronate 70 mg tablet RxNorm: 565836 1 Tablet(s) PO weekly 10/31/2015 10/24/2016 Inactive Synthroid 112 mcg tablet RxNorm: 841427 1 Tablet(s) PO daily 07/16/2015 02/08/2016 Inactive sucralfate 1 gram tablet RxNorm: 635796 1 Tablet(s) PO TID 06/17/2015 05/20/2016 Inactive perphenazine-amitriptyline 2 mg-10 mg tablet RxNorm: 179607 2 Tablet(s) PO daily 06/17/2015 04/25/2016 Inactive fluticasone 50 mcg/actuation nasal spray,suspension RxNorm: 1792195 1 [place] NASAL daily 06/17/2015 04/25/2016 Inactive fluorouracil 5 % topical cream RxNorm: 614926 APPLY 1 APPLICATION TOPICALLY TWO TIMES A DAY 06/16/2015 06/25/2015 Inactive fluticasone 50 mcg/actuation nasal spray,suspension RxNorm: 563113 1 [place] NASAL daily 06/12/2015 06/16/2015 Inactive atenolol 25 mg tablet RxNorm: 543303 1 Tablet(s) PO daily 05/14/2015 05/07/2016 Inactive Tricor 145 mg tablet RxNorm: 168998 1 Tablet(s) PO daily 04/23/2015 04/16/2016 Inactive Synthroid 125 mcg tablet RxNorm: 473419 1 Tablet(s) PO daily 03/31/2015 07/15/2015 Inactive fluorouracil 5 % topical cream RxNorm: 986374 1 Application TOP BID 03/31/2015 04/09/2015 Inactive Synthroid 137 mcg tablet RxNorm: 914613 1 Tablet(s) PO daily 12/25/2014 12/24/2014 Inactive Synthroid 137 mcg tablet RxNorm: 459739 1 Tablet(s) PO daily 12/25/2014 03/30/2015 Inactive Voltaren 1 % topical gel RxNorm: 793844 4 Gram(s) TOP QID 12/23/2014 04/21/2015 Inactive alendronate 70 mg tablet RxNorm: 207795 1 Tablet(s) PO weekly 12/23/2014 12/22/2014 Inactive alendronate 70 mg tablet RxNorm: 074853 1 Tablet(s) PO weekly 12/23/2014 10/30/2015 Inactive Fosamax 70 mg tablet RxNorm: 716419 1 Tablet(s) PO weekly QW 12/23/2014 01/27/2016 Inactive omeprazole 40 mg capsule,delayed release RxNorm: 587342 1 Capsule(s) PO daily 12/18/2014 12/07/2015 Inactive omeprazole 40 mg capsule,delayed release RxNorm: 542046 1 Capsule(s) PO daily 12/18/2014 12/17/2014 Inactive hydrochlorothiazide 25 mg tablet RxNorm: 560244 1 Tablet(s) PO daily 12/18/2014 12/17/2014 Inactive hydrochlorothiazide 25 mg tablet RxNorm: 477443 1 Tablet(s) PO daily 12/18/2014 12/07/2015 Inactive L-Lysine 1,000 mg tablet RxNorm: 271786 1 Tablet(s) PO daily No Start Date Active folic acid 400 mcg tablet RxNorm: 038639 1 Tablet(s) PO daily No Start Date Active B12 1000 mcg RxNorm: 1/2 Tablet(s) PO daily No Start Date Active Vitamin D3 1,000 unit chewable tablet RxNorm: 269061 1 Tablet(s) PO daily No Start Date Active diltiazem 120 mg tablet RxNorm: 603744 1 Tablet(s) PO daily No Start Date Active metoprolol succinate ER 100 mg tablet,extended release 24 hr RxNorm: 441739 1 Tablet(s) PO daily No Start Date 09/16/2016 Inactive enalapril maleate 10 mg tablet RxNorm: 183266 1 Tablet(s) PO daily No Start Date 12/25/2015 Inactive perphenazine-amitriptyline 2 mg-10 mg tablet RxNorm: 299884 2 Tablet(s) PO daily No Start Date 06/16/2015 Inactive sucralfate 1 gram tablet RxNorm: 864520 1 Tablet(s) PO TID No Start Date 06/16/2015 Inactive hydrochlorothiazide 25 mg tablet RxNorm: 882317 1 Tablet(s) PO daily No Start Date 08/30/2016 Inactive vitamin E (dl, acetate) 400 unit capsule RxNorm: 558321 1 Capsule(s) PO daily No Start Date 03/05/2018 Inactive sotalol 80 mg tablet RxNorm: 8564984 1 Tablet(s) PO BID No Start Date 01/25/2017 Inactive Synthroid 150 mcg tablet RxNorm: 923593 1 Tablet(s) PO daily No Start Date 12/24/2014 Inactive simvastatin 20 mg tablet RxNorm: 525852 1 Tablet(s) PO daily No Start Date 11/13/2015 Inactive Vitamin C RxNorm: PO 1000mg qd No Start Date 03/05/2018 Inactive Fosamax 70 mg tablet RxNorm: 773153 1 Tablet(s) PO weekly No Start Date 12/22/2014 Inactive Tricor 145 mg tablet RxNorm: 565420 1 Tablet(s) PO daily No Start Date 04/22/2015 Inactive diltiazem ER 180 mg capsule,24 hr,extended release RxNorm: 038119 1 Capsule(s) PO daily No Start Date 03/05/2018 Inactive diltiazem ER 240 mg capsule,extended release RxNorm: 246634 1 Capsule(s) PO BID No Start Date 01/25/2017 Inactive Eliquis 5 mg tablet RxNorm: 9877403 1 Tablet(s) PO BID No Start Date 01/25/2017 Inactive fluticasone 50 mcg/actuation nasal spray,suspension RxNorm: 340192 1 [place] NASAL daily No Start Date 06/11/2015 Inactive atenolol 25 mg tablet RxNorm: 558161 1 Tablet(s) PO daily No Start Date 05/13/2015 Inactive Medication Administered Medication Codes Instructions Start Date Status Kenalog 40 mg/mL suspension for injection RxNorm: 4221525 1Milliliter 08/12/2016 No longer Active Immunizations Vaccine [...] Ord40 Fe-%Sat 19.1 % 08/14/2018 Comp Metabolic Ldn995 NA 136 mEq/L 08/14/2018 Comp Metabolic Fwa951 K 4.3 mEq/L 08/14/2018 Comp Metabolic Isp638 CL 100 mEq/L 08/14/2018 Comp Metabolic Yex715 CO2 28.0 mEq/L 08/14/2018 Comp Metabolic Nul664 ANION GAP 12 08/14/2018 Comp Metabolic Xje874 GLUCOSE 111 mg/dL 08/14/2018 Comp Metabolic Pbx491 Creat 0.9 mg/dL 08/14/2018 Comp Metabolic Pnr088 eGFR 66 ml/min/1.73m2 08/14/2018 Comp Metabolic Nig533 BUN 22 mg/dL 08/14/2018 Comp Metabolic Wro460 B/C Ratio 25.3 Ratio 08/14/2018 Comp Metabolic Ntn013 CALCIUM 10.1 mg/dL 08/14/2018 Comp Metabolic Fhy854 ALK PHOS 45 U/L 08/14/2018 Comp Metabolic Mwr432 AST(SGOT) 16 U/L 08/14/2018 Comp Metabolic Awo897 ALT(SGPT) 7 U/L 08/14/2018 Comp Metabolic Tah380 BILI T 0.4 mg/dL 08/14/2018 Comp Metabolic Exn791 ALBUMIN 4.0 g/dL 08/14/2018 Comp Metabolic Jmp795 TPRO 7.0 g/dL 08/14/2018 Comp Metabolic Hbj449 GLOB 3.0 g/dL 08/14/2018 Comp Metabolic Jpa187 A/G Ratio 1.3 Ratio 08/14/2018 Comp Metabolic Eun980 Osmo 276 mOsmo 08/14/2018 Cbc With Differential [...] 26.2 pg 08/14/2018 Cbc With Differential Ord2 Cotton% 9.1 % 08/14/2018 Cbc With Differential Ord2 Eos% 1.8 % 08/14/2018 Cbc With Differential Ord2 MCHC 31.0 pg 08/14/2018 Cbc With Differential Ord2 PLT 293 K/ul 08/14/2018 Cbc With Differential Ord2 Baso% 0.5 % 08/14/2018 Cbc With Differential Ord2 Neut ABS# 4.34 K/ul 08/14/2018 Cbc With Differential Ord2 Lymph ABS# 0.93 K/ul 08/14/2018 Cbc With Differential Ord2 Cotton ABS# 0.5 K/ul 08/14/2018 Cbc With Differential Ord2 Eos ABS# 0.1 K/ul 08/14/2018 Cbc With Differential Ord2 Baso ABS# 0.0 K/ul 08/14/2018 Free T4 Bgw761 FREE T4 1.00 ng/dL 08/14/2018 Tibc Ord40 [...] 24.9 pg 06/21/2018 Cbc With Differential Ord2 Cotton% 15.0 % 06/21/2018 Cbc With Differential Ord2 [...] 1.35 K/ul 06/21/2018 Cbc With Differential Ord2 Cotton ABS# 0.9 K/ul 06/21/2018 Cbc With Differential [...] 24.9 pg 06/01/2018 Cbc With Differential Ord2 Cotton% 12.8 % 06/01/2018 Cbc With Differential Ord2 [...] 0.81 K/ul 06/01/2018 Cbc With Differential Ord2 Cotton ABS# 0.7 K/ul 06/01/2018 Cbc With Differential [...] 29.9 pg 03/17/2018 Cbc With Differential Ord2 Cotton% 13.3 % 03/17/2018 Cbc With Differential Ord2 [...] 0.90 K/ul 03/17/2018 Cbc With Differential Ord2 Cotton ABS# 0.8 K/ul 03/17/2018 Cbc With Differential [...] 30.2 pg 02/22/2018 Cbc With Differential Ord2 Cotton% 11.5 % 02/22/2018 Cbc With Differential Ord2 [...] 0.86 K/ul 02/22/2018 Cbc With Differential Ord2 Cotton ABS# 0.7 K/ul 02/22/2018 Cbc With Differential Ord2 Eos ABS# 0.2 K/ul 02/22/2018 Cbc With Differential Ord2 Baso ABS# 0.1 K/ul 02/22/2018 Tsh Ord6 TSH (3rd IS) 0.66 uIU/mL 02/22/2018 Free T4 Gso024 FREE T4 1.22 ng/dL 02/22/2018 Comp Metabolic Swu313 NA 136 mEq/L 02/22/2018 Comp Metabolic Eib212 K 4.4 mEq/L 02/22/2018 Comp Metabolic Mft598 CL 102 mEq/L 02/22/2018 Comp Metabolic Mmy101 CO2 23.0 mEq/L 02/22/2018 Comp Metabolic Pxu669 ANION GAP 15 02/22/2018 Comp Metabolic Pob908 GLUCOSE 94 mg/dL 02/22/2018 Comp Metabolic Xxf463 Creat 1.2 mg/dL 02/22/2018 Comp Metabolic Cgp840 eGFR 46 ml/min/1.73m2 02/22/2018 Comp Metabolic Tlq287 BUN 31 mg/dL 02/22/2018 Comp Metabolic Nby522 B/C Ratio 25.8 Ratio 02/22/2018 Comp Metabolic Qtq264 CALCIUM 9.2 mg/dL 02/22/2018 Comp Metabolic Pwo593 ALK PHOS 34 U/L 02/22/2018 Comp Metabolic Ygj290 AST(SGOT) 18 U/L 02/22/2018 Comp Metabolic Qmr285 ALT(SGPT) 8 U/L 02/22/2018 Comp Metabolic Drh090 BILI T 0.4 mg/dL 02/22/2018 Comp Metabolic Nll532 ALBUMIN 3.6 g/dL 02/22/2018 Comp Metabolic Dcj020 TPRO 6.2 g/dL 02/22/2018 Comp Metabolic Bem102 GLOB 2.6 g/dL 02/22/2018 Comp Metabolic Znv578 A/G Ratio 1.4 Ratio 02/22/2018 Comp Metabolic Mod816 Osmo 278 mOsmo 02/22/2018 Free T4 Wcn476 FREE T4 1.11 ng/dL 10/27/2017 Lipid Ord30 [...] 30.7 pg 10/27/2017 Cbc With Differential Ord2 Cotton% 11.3 % 10/27/2017 Cbc With Differential Ord2 [...] 1.16 K/ul 10/27/2017 Cbc With Differential Ord2 Cotton ABS# 0.6 K/ul 10/27/2017 Cbc With Differential Ord2 Eos ABS# 0.2 K/ul 10/27/2017 Cbc With Differential Ord2 Baso ABS# 0.0 K/ul 10/27/2017 Comp Metabolic Usv292 NA 135 mEq/L 10/27/2017 Comp Metabolic Bdd292 K 4.7 mEq/L 10/27/2017 Comp Metabolic Aap289 CL 101 mEq/L 10/27/2017 Comp Metabolic Oyz730 CO2 23.0 mEq/L 10/27/2017 Comp Metabolic Irl042 ANION GAP 16 10/27/2017 Comp Metabolic Btu103 GLUCOSE 84 mg/dL 10/27/2017 Comp Metabolic Vvm419 Creat 1.2 mg/dL 10/27/2017 Comp Metabolic Rgh892 eGFR 46 ml/min/1.73m2 10/27/2017 Comp Metabolic Xzw292 BUN 30 mg/dL 10/27/2017 Comp Metabolic Hqr326 B/C Ratio 25.2 Ratio 10/27/2017 Comp Metabolic Quv636 CALCIUM 9.4 mg/dL 10/27/2017 Comp Metabolic Gkc432 ALK PHOS 30 U/L 10/27/2017 Comp Metabolic Tef464 AST(SGOT) 25 U/L 10/27/2017 Comp Metabolic Hyk617 ALT(SGPT) 12 U/L 10/27/2017 Comp Metabolic Nmm799 BILI T 0.5 mg/dL 10/27/2017 Comp Metabolic Sxl165 ALBUMIN 3.7 g/dL 10/27/2017 Comp Metabolic Pyw573 TPRO 6.5 g/dL 10/27/2017 Comp Metabolic Ona142 GLOB 2.8 g/dL 10/27/2017 Comp Metabolic Wyk912 A/G Ratio 1.3 Ratio 10/27/2017 Comp Metabolic Sad966 Osmo 275 mOsmo 10/27/2017 Hgb & Hct Ord65 HGB 12.2 g/dl 07/29/2017 Hgb & Hct Ord65 HCT 38.8 % 07/29/2017 Tibc Ord40 Iron 79 ug/dl 07/26/2017 Tibc Ord40 UIBC 380 ug/dL 07/26/2017 Tibc Ord40 TIBC 459 ug/dL 07/26/2017 Tibc Ord40 Fe-%Sat 17.2 % 07/26/2017 Tsh Ord6 TSH (3rd IS) 0.46 uIU/mL 07/26/2017 Ferritin Ord22 FERRITIN 83.6 ng/mL 07/26/2017 Free T4 Ums403 FREE T4 1.00 ng/dL 07/26/2017 Tibc Ord40 [...] 31.0 pg 08/02/2016 Cbc With Differential Ord2 Cotton% 9.4 % 08/02/2016 Cbc With Differential Ord2 [...] 1.44 K/ul 08/02/2016 Cbc With Differential Ord2 Cotton ABS# 0.7 K/ul 08/02/2016 Cbc With Differential Ord2 Eos ABS# 0.3 K/ul 08/02/2016 Cbc With Differential Ord2 Baso ABS# 0.1 K/ul 08/02/2016 Lipid Ord30 CHOL 142 mg/dL 08/02/2016 Lipid Ord30 HDL 40.0 mg/dl 08/02/2016 Lipid Ord30 TRIG 169 mg/dL 08/02/2016 Lipid Ord30 LDL 68 mg/dL 08/02/2016 Lipid Ord30 C/HDL 3.6 Ratio 08/02/2016 Comp Metabolic Sfk832 NA 139 mEq/L 08/02/2016 Comp Metabolic Gbe882 K 5.2 mEq/L 08/02/2016 Comp Metabolic Ylu374 CL 108 mEq/L 08/02/2016 Comp Metabolic Fiq082 CO2 22.0 mEq/L 08/02/2016 Comp Metabolic Htj393 ANION GAP 14 08/02/2016 Comp Metabolic Dtc982 GLUCOSE 103 mg/dL 08/02/2016 Comp Metabolic Wyd775 Creat 1.1 mg/dL 08/02/2016 Comp Metabolic Iei182 eGFR 54 ml/min/1.73m2 08/02/2016 Comp Metabolic Net183 BUN 26 mg/dL 08/02/2016 Comp Metabolic Rla980 B/C Ratio 24.8 Ratio 08/02/2016 Comp Metabolic Yvo104 CALCIUM 9.4 mg/dL 08/02/2016 Comp Metabolic Hlj473 ALK PHOS 41 U/L 08/02/2016 Comp Metabolic Idy832 AST(SGOT) 18 U/L 08/02/2016 Comp Metabolic Ivc110 ALT(SGPT) 10 U/L 08/02/2016 Comp Metabolic Fxn310 BILI T 0.3 mg/dL 08/02/2016 Comp Metabolic Qry987 ALBUMIN 3.7 g/dL 08/02/2016 Comp Metabolic Wfu692 TPRO 6.5 g/dL 08/02/2016 Comp Metabolic Edl656 GLOB 2.8 g/dL 08/02/2016 Comp Metabolic Bxx520 A/G Ratio 1.3 Ratio 08/02/2016 Comp Metabolic Tcu168 Osmo 283 mOsmo 08/02/2016 Free T4 Pre556 FREE T4 1.08 ng/dL 08/02/2016 Tsh Ord6 hTSH II 0.35 uIU/mL 05/13/2016 Free T4 Ocn672 FREE T4 0.78 ng/dL 05/13/2016 Free T4 Epv952 FREE T4 1.13 ng/dL 01/28/2016 Tsh Ord6 [...] 30.2 pg 07/14/2015 Cbc With Differential Ord2 Cotton% 9.1 % 07/14/2015 Cbc With Differential Ord2 [...] 1.80 K/ul 07/14/2015 Cbc With Differential Ord2 Cotton ABS# 0.7 K/ul 07/14/2015 Cbc With Differential [...] Ord30 C/HDL 3.0 Ratio 07/14/2015 Comp Metabolic Zhr667 NA 136 mEq/L 07/14/2015 Comp Metabolic Efz693 K 4.4 mEq/L 07/14/2015 Comp Metabolic Vhf242 CL 101 mEq/L 07/14/2015 Comp Metabolic Vnf516 CO2 27.0 mEq/L 07/14/2015 Comp Metabolic Tdt984 ANION GAP 12 07/14/2015 Comp Metabolic Rpv742 GLUCOSE 97 mg/dL 07/14/2015 Comp Metabolic Heu759 Creat 1.0 mg/dL 07/14/2015 Comp Metabolic Rhi412 eGFR 56 ml/min/1.73m2 07/14/2015 Comp Metabolic Rcf652 BUN 27 mg/dL 07/14/2015 Comp Metabolic Ynx697 B/C Ratio 26.7 Ratio 07/14/2015 Comp Metabolic Rmc676 CALCIUM 9.3 mg/dL 07/14/2015 Comp Metabolic Jnh183 ALK PHOS 33 U/L 07/14/2015 Comp Metabolic Ynp727 AST(SGOT) 14 U/L 07/14/2015 Comp Metabolic Txv906 ALT(SGPT) 8 U/L 07/14/2015 Comp Metabolic Bgl165 BILI T 0.4 mg/dL 07/14/2015 Comp Metabolic Cvc323 ALBUMIN 3.8 g/dL 07/14/2015 Comp Metabolic Lub675 TPRO 6.6 g/dL 07/14/2015 Comp Metabolic Iyg020 GLOB 2.8 g/dL 07/14/2015 Comp Metabolic Kse976 A/G Ratio 1.4 Ratio 07/14/2015 Comp Metabolic Kxt710 Osmo 277 mOsmo 07/14/2015 Tsh Ord6 hTSH II 0.23 uIU/mL 07/14/2015 Free T4 Sxb586 FREE T4 1.19 ng/dL 07/14/2015 Cbc With [...] Ord30 C/HDL 3.4 Ratio 03/26/2015 Comp Metabolic Yei615 NA 135 mEq/L 03/26/2015 Comp Metabolic Tki254 K 5.0 mEq/L 03/26/2015 Comp Metabolic Zxw734 CL 99 mEq/L 03/26/2015 Comp Metabolic Xjk860 CO2 27.0 mEq/L 03/26/2015 Comp Metabolic Tat534 ANION GAP 14 03/26/2015 Comp Metabolic Klp136 GLUCOSE 88 mg/dL 03/26/2015 Comp Metabolic Kqh800 Creat 1.1 mg/dL 03/26/2015 Comp Metabolic Jew773 eGFR 50 ml/min/1.73m2 03/26/2015 Comp Metabolic Iys291 BUN 27 mg/dL 03/26/2015 Comp Metabolic Edx183 B/C Ratio 24.1 Ratio 03/26/2015 Comp Metabolic Upm886 CALCIUM 9.9 mg/dL 03/26/2015 Comp Metabolic Pbw240 ALK PHOS 30 U/L 03/26/2015 Comp Metabolic Wny226 AST(SGOT) 16 U/L 03/26/2015 Comp Metabolic Vnv002 ALT(SGPT) 8 U/L 03/26/2015 Comp Metabolic Dcz957 BILI T 0.4 mg/dL 03/26/2015 Comp Metabolic Xxh688 ALBUMIN 3.9 g/dL 03/26/2015 Comp Metabolic Hss886 TPRO 6.4 g/dL 03/26/2015 Comp Metabolic Frs483 GLOB 2.5 g/dL 03/26/2015 Comp Metabolic Vtk367 A/G Ratio 1.6 Ratio 03/26/2015 Comp Metabolic Egt547 Osmo 275 mOsmo 03/26/2015 Free T4 Epb545 FREE T4 1.22 ng/dL 03/26/2015 Tsh Ord6 hTSH II 0.20 uIU/mL 03/26/2015 Vitamin D 25 Oh Kkv1583 VITAMIN D, 25 HYDROXY 51.09 ng/mL 12/25/2014 Tsh Ord6 hTSH II 0.09 uIU/mL 12/23/2014 Free T4 Wtc415 FREE T4 1.30 ng/dL 12/23/2014 Comp Metabolic Vfx203 NA 135 mEq/L 12/23/2014 Comp Metabolic Bag167 K 4.7 mEq/L 12/23/2014 Comp Metabolic Jfh685 CL 100 mEq/L 12/23/2014 Comp Metabolic Xez007 CO2 23.0 mEq/L 12/23/2014 Comp Metabolic Xsb938 ANION GAP 17 12/23/2014 Comp Metabolic Pbe188 GLUCOSE 93 mg/dL 12/23/2014 Comp Metabolic Fbq438 Creat 1.1 mg/dL 12/23/2014 Comp Metabolic Rrl020 eGFR 53 ml/min/1.73m2 12/23/2014 Comp Metabolic Agm507 BUN 26 mg/dL 12/23/2014 Comp Metabolic Npl481 B/C Ratio 24.3 Ratio 12/23/2014 Comp Metabolic Upk736 CALCIUM 9.5 mg/dL 12/23/2014 Comp Metabolic Mxq473 ALK PHOS 27 U/L 12/23/2014 Comp Metabolic Tat983 AST(SGOT) 16 U/L 12/23/2014 Comp Metabolic Ksh174 ALT(SGPT) 8 U/L 12/23/2014 Comp Metabolic Uhi318 BILI T 0.4 mg/dL 12/23/2014 Comp Metabolic Aop768 ALBUMIN 3.9 g/dL 12/23/2014 Comp Metabolic Urv306 TPRO 6.7 g/dL 12/23/2014 Comp Metabolic Dfp654 GLOB 2.8 g/dL 12/23/2014 Comp Metabolic Hzj343 A/G Ratio 1.4 Ratio 12/23/2014 Comp Metabolic Zno624 Osmo 275 mOsmo 12/23/2014 Review of Systems [...] oriented to person, place and time 04/03/2018 Full Exam - General 1994 Psychiatric mood [...] accomodation 10/27/2017 None Full Exam - General 1995 Ears/Nose/Throat lips/teeth/gingiva Overall: benign lips 10/27/2017 None [...] inspection of skin Consistency: thick 03/31/2015 left hoahaoism and left nasal bridge - actinic keratosis [...] SUBSEQ VISIT CPT- 4: G0439 05/05/2018 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-[address]: 167612104 CPT-4: G0436 04/11/2017 PNEUMOCOCCAL VACC [address]: 23833599 CPT-4: 13439 02/09/2017 FLU VACC PRSV FREE INC ANTIG CPT-4: 37925 02/09/2017 ADMIN INFLUENZA VIRUS VAC CPT-4: G0008 02/09/2017 ADMIN PNEUMOCOCCAL VACCINE SNOMED CT: 24047387 CPT-4: G0009 02/09/2017 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-[address]: 841289449 CPT-4: G0436 02/07/2017 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-[address]: 761414738 CPT-4: G0436 10/19/2016 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-[address]: 189126782 CPT-4: G0436 08/31/2016 TRIAMCINOLONE ACET INJ NOS CPT-4: J3301 08/12/2016 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-[address]: 061953549 CPT-4: G0436 07/28/2016 ADMIN INFLUENZA VIRUS VAC CPT-4: G0008 01/28/2016 FLU VACC 4 JULISA 3 YRS PLUS IM SNOMED CT: 69937719 CPT-4: 75608 01/28/2016 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-[address]: 112227909 CPT-4: G0436 07/29/2015 Vital Signs Date Vital 08/21/2018 Blood Pressure 1: 144/82 Code: 8480-6 BMI: 23.9 Code: 61548-4 Heart Rate 1: 99 bpm Height: 5'4" SpO2: 95% Weight: 139 lbs 07/17/2018 Blood Pressure 1: 126/54 Code: 8480-6 BMI: 24.4 Code: 81059-8 Heart Rate 1: 70 bpm Height: 5'4" SpO2: 98% Weight: 142 lbs 06/05/2018 Blood Pressure 1: 122/60 Code: 8480-6 BMI: 25.4 Code: 24137-2 Heart Rate 1: 74 bpm Height: 5'4" SpO2: 98% Weight: 148 lbs 05/05/2018 Blood Pressure 1: 130/64 Code: 8480-6 BMI: 25.1 Code: 68442-1 Heart Rate 1: 72 bpm Height: 5'4" SpO2: 97% Weight: 146 lbs 04/03/2018 Blood Pressure 1: 142/80 Code: 8480-6 BMI: 25.2 Code: 67914-5 Heart Rate 1: 99 bpm Height: 5'4" SpO2: 97% Weight: 147 lbs 03/06/2018 Blood Pressure 1: 140/80 Code: 8480-6 BMI: 26.1 Code: 66300-0 Heart Rate 1: 71 bpm Height: 5'4" SpO2: 98% Weight: 152 lbs 02/22/2018 Blood Pressure 1: 146/68 Code: 8480-6 BMI: 26.6 Code: 99875-6 Heart Rate 1: 88 bpm Height: 5'4" SpO2: 97% Weight: 155 lbs 12/13/2017 Blood Pressure 1: 132/68 Code: 8480-6 BMI: 26.6 Code: 29125-0 Heart Rate 1: 72 bpm Height: 5'4" SpO2: 94% Weight: 154 lbs 14 oz 11/29/2017 Blood Pressure 1: 130/64 Code: 8480-6 BMI: 26.1 Code: 87350-2 Heart Rate 1: 81 bpm Height: 5'4" SpO2: 94% Weight: 152 lbs 10/27/2017 Blood Pressure 1: 120/62 Code: 8480-6 BMI: 25.9 Code: 98551-1 Heart Rate 1: 70 bpm Height: 5'4" SpO2: 96% Weight: 151 lbs 07/26/2017 Blood Pressure 1: 146/70 Code: 8480-6 BMI: 26.3 Code: 99279-1 Heart Rate 1: 69 bpm Height: 5'4" SpO2: 98% Weight: 153 lbs 05/26/2017 Blood Pressure 1: 142/76 Code: 8480-6 BMI: 26.4 Code: 02481-0 Heart Rate 1: 59 bpm Height: 5'4" SpO2: 99% Weight: 154 lbs 04/11/2017 Blood Pressure 1: 134/64 Code: 8480-6 BMI: 26.6 Code: 67265-3 Heart Rate 1: 65 bpm Height: 5'4" SpO2: 98% Weight: 155 lbs 02/07/2017 Blood Pressure 1: 120/72 Code: 8480-6 Heart Rate 1: 72 bpm Height: 5'4" SpO2: 96% Weight: 01/26/2017 Blood Pressure 1: 146/68 Code: 8480-6 BMI: 26.4 Code: 76900-2 Heart Rate 1: 96 bpm Height: 5'4" SpO2: 97% Weight: 154 lbs 10/19/2016 Blood Pressure 1: 144/76 Code: 8480-6 BMI: 25.8 Code: 62902-7 Heart Rate 1: 68 bpm Height: 5'4" SpO2: 96% Weight: 150 lbs 8 oz 09/22/2016 Blood Pressure 1: 122/80 Code: 8480-6 BMI: 26.1 Code: 30777-8 Heart Rate 1: 111 bpm Height: 5'4" SpO2: 97% Weight: 152 lbs 08/31/2016 Blood Pressure 1: 152/82 Code: 8480-6 BMI: 27.1 Code: 69093-9 Heart Rate 1: 118 bpm Height: 5'4" SpO2: 96% Weight: 158 lbs 08/12/2016 Blood Pressure 1: 146/78 Code: 8480-6 BMI: 26.9 Code: 64103-7 Heart Rate 1: 68 bpm Height: 5'4" SpO2: 97% Weight: 157 lbs 07/28/2016 Blood Pressure 1: 128/64 Code: 8480-6 BMI: 27.1 Code: 37632-1 Heart Rate 1: 63 bpm Height: 5'4" SpO2: 97% Weight: 158 lbs 01/28/2016 Blood Pressure 1: 130/70 Code: 8480-6 BMI: 27.3 Code: 40543-8 Heart Rate 1: 60 bpm Height: 5'4" SpO2: 95% Weight: 159 lbs 07/29/2015 Blood Pressure 1: 136/80 Code: 8480-6 BMI: 28.1 Code: 01349-8 Heart Rate 1: 68 bpm Height: 5'4" SpO2: 96% Weight: 163 lbs 8 oz 03/31/2015 Blood Pressure 1: 138/88 Code: 8480-6 BMI: 27.5 Code: 12063-0 Heart Rate 1: 72 bpm Height: 5'4" Weight: 160 lbs 12/23/2014 Blood Pressure 1: 138/68 Code: 8480-6 BMI: 27.1 Code: 26923-1 Heart Rate 1: 63 bpm Height: 5'4" [...] data Encounters Encounter Performer Location Codes Date ([id number]) 08298 EST. PATIENT, LEVEL IV Diagnosis: Atrophy of thyroid (acquired)[ICD10: E03.4] Diagnosis: Other iron deficiency anemias[ICD10: D50.8] Diagnosis: Pain in right hip[ICD10: M25.551] Diagnosis: Essential (primary) hypertension[ICD10: I10] Kandi Cabrera MD, [facility] CPT-4: 73359 08/21/2018 [id number]) 39893 EST. PATIENT, LEVEL IV Diagnosis: Essential (primary) hypertension[ICD10: I10] Diagnosis: Other iron deficiency anemias[ICD10: D50.8] Diagnosis: Tobacco abuse counseling[ICD10: Z71.6] Diagnosis: Chronic atrial fibrillation[ICD10: I48.2] Kandi Cabrera MD, [facility] CPT-4: 07336 07/17/2018 ([id number]) BEHAV CHNG SMOKING 3-10 MIN Diagnosis: [ICD9: ] Diagnosis: [ICD9: ] Diagnosis: [ICD9: ] Diagnosis: [ICD9: ] Kandi Cabrera MD, [facility] CPT-4: 31986 07/17/2018 [id number]) 03490 EST. PATIENT, LEVEL IV Diagnosis: Other specified anemias[ICD10: D64.89] Diagnosis: Other insomnia[ICD10: G47.09] Diagnosis: Atrophy of thyroid (acquired)[ICD10: E03.4] Diagnosis: Allergic urticaria[ICD10: L50.0] Kandi Cabrera MD, [facility] CPT-4: 90882 06/05/2018 ([id number]) 56011 EST. PATIENT, LEVEL IV Diagnosis: Essential (primary) hypertension[ICD10: I10] Diagnosis: Nonrheumatic aortic (valve) stenosis[ICD10: I35.0] Diagnosis: Atrophy of thyroid (acquired)[ICD10: E03.4] Diagnosis: Chronic atrial fibrillation[ICD10: I48.2] [facility] CPT-4: 63520 04/03/2018 [id number]) 16099 EST. PATIENT, LEVEL IV Diagnosis: Essential (primary) hypertension[ICD10: I10] Diagnosis: Chronic atrial fibrillation[ICD10: I48.2] Diagnosis: Nonrheumatic aortic (valve) stenosis[ICD10: I35.0] Diagnosis: Age-related osteoporosis without current pathological fracture[ICD10: M81.0] Kandi Cabrera MD [facility] CPT-4: 17128 03/06/2018 88587 EST. PATIENT, LEVEL III Diagnosis: Low back pain[ICD10: M54.5] Diagnosis: Dysuria[ICD10: R30.0] Diagnosis: Gastro-esophageal reflux disease without esophagitis[ICD10: K21.9] Payton Cabrera MD, [facility] CPT-4: 85762 02/22/2018 ([id number]) 64212 EST. PATIENT, LEVEL III Diagnosis: Atrophy of thyroid (acquired)[ICD10: E03.4] Diagnosis: Other iron deficiency anemias[ICD10: D50.8] Diagnosis: Epigastric pain[ICD10: R10.13] Kandi Cabrera MD [facility] CPT-4: 62913 12/13/2017 ([id number]) 25372 EST. PATIENT, LEVEL IV Diagnosis: Diverticulitis of large intestine without perforation or abscess without bleeding[ICD10: K57.32] Kandi Cabrera MD [facility] CPT-4: 71530 11/29/2017 ([id number]) 01604 EST. PATIENT, LEVEL IV Diagnosis: Atrophy of thyroid (acquired)[ICD10: E03.4] Diagnosis: Other iron deficiency anemias[ICD10: D50.8] Diagnosis: Epigastric pain[ICD10: R10.13] Diagnosis: Right lower quadrant pain[ICD10: R10.31] Diagnosis: Left lower quadrant pain[ICD10: R10.32] Kandi Cabrera MD [facility] CPT-4: 24323 10/27/2017 [id number] EST. PATIENT, LEVEL IV Diagnosis: Atrophy of thyroid (acquired)[ICD10: E03.4] Diagnosis: Other iron deficiency anemias[ICD10: D50.8] Diagnosis: Essential (primary) hypertension[ICD10: I10] Diagnosis: Gastro-esophageal reflux disease without esophagitis[ICD10: K21.9] Payton Cabrera MD, [facility] CPT-4: 30339 07/26/2017 ([id number]) 27205 EST. PATIENT, LEVEL IV Diagnosis: Other iron deficiency anemias[ICD10: D50.8] Diagnosis: Atrophy of thyroid (acquired)[ICD10: E03.4] Diagnosis: Tobacco use[ICD10: Z72.0] Diagnosis: Essential (primary) hypertension[ICD10: I10] Diagnosis: Low back pain[ICD10: M54.5] Kandi Cabrera MD [facility] CPT-4: 44401 05/26/2017 ([id number]) 73679 EST. PATIENT, LEVEL IV Diagnosis: Shortness of breath[ICD10: R06.02] Diagnosis: Tobacco use[ICD10: Z72.0] Diagnosis: Chronic atrial fibrillation[ICD10: I48.2] Kandi Cabrera MD [facility] CPT-4: 83270 04/11/2017 ([id number]) 00842 EST. PATIENT, LEVEL III Diagnosis: Unsteadiness on feet[ICD10: R26.81] Diagnosis: Tobacco use[ICD10: Z72.0] Kandi Cabrera MD [facility] CPT-4: 37256 02/07/2017 ([id number]) 54210 EST. PATIENT, LEVEL IV Diagnosis: Cough[ICD10: R05] Diagnosis: Essential (primary) hypertension[ICD10: I10] Diagnosis: Chronic atrial fibrillation[ICD10: I48.2] Diagnosis: Unsteadiness on feet[ICD10: R26.81] Kandi Cabrera MD [facility] CPT- 4: 95720 01/26/2017 ([id number]) 57252 EST. PATIENT, LEVEL IV Diagnosis: Essential (primary) hypertension[ICD10: I10] Diagnosis: Atrophy of thyroid (acquired)[ICD10: E03.4] Diagnosis: Tobacco use[ICD10: Z72.0] Diagnosis: Chronic atrial fibrillation[ICD10: I48.2] Diagnosis: Mixed hyperlipidemia[ICD10: E78.2] Kandi Cabrera MD, [facility] CPT- 4: 28856 10/19/2016 [id number]) 74565 EST. PATIENT, LEVEL IV Diagnosis: Atrophy of thyroid (acquired)[ICD10: E03.4] Diagnosis: Mixed hyperlipidemia[ICD10: E78.2] Diagnosis: Essential (primary) hypertension[ICD10: I10] Kandi Cabrera MD, [facility] CPT-4: 76155 09/22/2016 ([id number]) 27799 EST. PATIENT, LEVEL IV Diagnosis: Essential (primary) hypertension[ICD10: I10] Diagnosis: Atrophy of thyroid (acquired)[ICD10: E03.4] Diagnosis: Chronic atrial fibrillation[ICD10: I48.2] Kandi Cabrera MD, [facility] CPT-4: 69617 08/31/2016 ([id number]) 67514 EST. PATIENT, LEVEL III Diagnosis: Low back pain[ICD10: M54.5] Diagnosis: Sacroiliitis, not elsewhere classified[ICD10: M46.1] Janeen Cabrera MD, [facility] CPT-4: 83523 08/12/2016 ([id number]) 12545 EST. PATIENT, LEVEL IV Diagnosis: Mixed hyperlipidemia[ICD10: E78.2] Diagnosis: Essential (primary) hypertension[ICD10: I10] Diagnosis: Atrophy of thyroid (acquired)[ICD10: E03.4] Kandi Cabrera MD, [facility] CPT-4: 35367 07/28/2016 ([id number]) 12316 EST. PATIENT, LEVEL IV Diagnosis: Hypothyroidism, unspecified[ICD10: E03.9] Diagnosis: Essential (primary) hypertension[ICD10: I10] Diagnosis: Mixed hyperlipidemia[ICD10: E78.2] Diagnosis: Cellulitis of left lower limb[ICD10: L03.116] Diagnosis: Encounter for immunization[ICD10: Z23] Kandi Cabrera MD, [facility] CPT-4: 15705 01/28/2016 ([id number]) 71189 EST. PATIENT, LEVEL IV Diagnosis: Essential (primary) hypertension[ICD10: I10] Diagnosis: Hypothyroidism, unspecified[ICD10: E03.9] Diagnosis: Diarrhea, unspecified[ICD10: R19.7] Diagnosis: Tobacco use[ICD10: Z72.0] Diagnosis: Tobacco abuse counseling[ICD10: Z71.6] Diagnosis: Other obesity due to excess calories[ICD10: E66.09] Kandi Cabrera MD, [facility] CPT-4: 54636 07/29/2015 ([id number]) 11479 EST. PATIENT, LEVEL IV Diagnosis: Essential (primary) hypertension[ICD10: I10] Diagnosis: Hypothyroidism, unspecified[ICD10: E03.9] Diagnosis: Actinic keratosis[ICD10: L57.0] [facility] CPT-4: 77567 03/31/2015 ([id number]) OFFICE VISIT, NEW - LEVEL 4 Diagnosis: ESSENTIAL HYPERTENSION[ICD9: 401.9] Diagnosis: HYPOTHYROIDISM[ICD9: 244.9] Diagnosis: HYPERLIPIDEMIA[ICD9: 272.4] Diagnosis: Osteoporosis[ICD9: 733.00] Diagnosis: OSTEOARTH NOS-UNSPEC[ICD9: 715.90] Diagnosis: Sacroiliitis[ICD9: 720.2] [facility] CPT-4: 00797 12/23/2014 Plan of Care Planned Activity Notes [...] is ready to discuss valve replacement. 08/21/2018 Patient Education: Patient Medication Summary Completed [...] status. 07/17/2018 Appointment: Kandi Cabrera WPtel: [phone] [facility] (15 min) Moderate 07/17/2018 Patient Education: Patient Medication Summary Completed 07/17/2018 Patient Education: Hypertension Completed 07/17/2018 Appointment: [phone] (15 min) Moderate 07/11/2018 Visit Plan: Hypothyroidism [...] on hydroxyzine. 06/05/2018 Appointment: Kandi Cabrera WPtel: [phone] [place] [place] (15 min) Moderate 06/05/2018 Patient Education: Patient [...] Addiction Completed 05/05/2018 Appointment: Kandi Cabrera WPtel: [facility] [place] (15 min) Moderate 04/11/2018 Visit Plan: Hypertension [...] not improving. 04/03/2018 Appointment: Kandi Cabrera WPtel: [facility] (15 min) Moderate 04/03/2018 Patient Education: Patient [...] a conversation about surgical intervention with her [employer]. 03/06/2018 Appointment: Kandi Cabrera WPtel: [facility]7 [facility] [place] (15 min) Moderate 03/06/2018 Patient Education: [...] not improving. 02/22/2018 Appointment: Payton Leon WPtel: [address] [place], [place] [phone] (15 min) Moderate 02/22/2018 Patient Education: Patient Medication Summary Completed 02/22/2018 Patient Education: Back Pain Completed 02/22/2018 Visit Plan: Diarrhea - improved - pt advised to avoid seeds, nuts, popcorn, or any other food which has been proven to upset the pt's stomach. 12/13/2017 Appointment: Kandi Cabrera WPtel: [facility]5 [facility] [place] (15 min) Moderate 12/13/2017 Patient Education: Patient Medication Summary Completed 12/13/2017 Visit Plan: Diverticulitis - rx for antibiotic sent to pt's pharmacy - pt advised to avoid seeds, nuts, popcorn, or any other food which has been proven to upset the pt's stomach. 11/29/2017 Appointment: Kandi Cabrera WPtel: [facility]3 [facility] [place] (15 min) Moderate 11/29/2017 Patient Education: Patient Medication Summary Completed 11/29/2017 Appointment: Kandi Cabrera WPtel: [facility]4 [facility]6[address] (15 min) Moderate 11/24/2017 Visit Plan: Abdominal [...] days 10/27/2017 Appointment: Kandi Cabrera WPtel: [phone] [facility]6676[facility] (15 min) Moderate 10/27/2017 Patient Education: Patient [...] improving. 07/26/2017 Appointment: [phone] [place] (30 min) Complex 07/26/2017 Patient Education: Patient Medication Summary Completed 07/26/2017 Care Plan: Iron Pending 07/26/2017 Care Plan: Referral Order SNOMED-CT : [id number] Pending 07/26/2017 Visit Plan: Hypertension - well [...] exercises recommended. 05/26/2017 Appointment: Kandi Cabrera WPtel: [phone] [facility] [place] (15 min) Moderate 05/26/2017 Patient Education: Patient Medication Summary Completed 05/26/2017 Patient Education: Patient Medication Summary Completed 05/19/2017 Care Plan: Iron Pending 05/19/2017 Visit Plan: Dyspnea on Exertion - uncontrolled - I have recommended pt to have Pulmonary function studies as well as a referral back to her [employer] - Dr. Hanna - I suspect she [...] of cigarettes". 04/11/2017 Appointment: Kandi Cabrera WPtel: [phone] [facility] (15 min) Moderate 04/11/2017 Patient Education: Patient Medication Summary Completed 04/11/2017 Patient Education: Smoking and Tobacco Addiction Completed 04/11/2017 Care Plan: Referral Order SNOMED-CT : [id number] Pending 04/11/2017 Appointment: Kandi Cabrera WPtel: [phone] [facility]66[facility] (15 min) Moderate 02/14/2017 Appointment: Injection 02/09/2017 Referral: [facility] W[facility]: [phone] Patient informed. Completed 02/09/2017 Patient Education: Patient Medication Summary Completed 02/09/2017 Patient Education: Smoking and Tobacco Addiction Completed 02/09/2017 Visit Plan: Tobacco abuse - chronic condition for this patient. Patient has been counseled about need to stop smoking due to the negative health affects. 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 Rx for wellbutrin 75mg 1/2 pill bid. Gait instability - referral to [facility] for gait instability 02/07/2017 Appointment: Kandi Cabrera WPtel: [phone] [facility]6[address] (15 min) Moderate 02/07/2017 Patient Education: Patient Medication Summary Completed 02/07/2017 Patient Education: Smoking and Tobacco Addiction Completed 02/07/2017 Care Plan: Referral Order SNOMED-CT : [id number] Pending 02/07/2017 Visit Plan: Cough - pt [...] uncontrolled. 01/26/2017 Appointment: Kandi Cabrera WPtel: [phone] [facility] [place] (15 min) Moderate 01/26/2017 Patient Education: Patient [...] week. 10/19/2016 Appointment: Kandi Cabrera WPtel: [phone] [facility] [place] (15 min) Moderate 10/19/2016 Patient Education: Patient Medication Summary Completed 10/19/2016 Patient Education: Smoking and Tobacco Addiction Completed 10/19/2016 Patient Education: Hypertension Completed 10/19/2016 Visit Plan: Atrial Fibrillation - pt on chronic anticoagulation and is not optimally rate controlled. 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 09/22/2016 Appointment: Kandi Cabrera WPtel: [facility]5 [facility] (15 min) Moderate 09/22/2016 Patient Education: Patient [...] q 3 months or q 6 m ont based on previous levels of control. 08/31/2016 Appointment: Kandi Cabrera WPtel: [address] [place], [place] [address] (15 min) Moderate 08/31/2016 Patient Education: Patient Medication Summary Completed 08/31/2016 Patient Education: Smoking and Tobacco Addiction Completed 08/31/2016 Patient Education: Hypertension Completed 08/31/2016 Visit Plan: Sacroiliitis -kenalog injection today in the office- tylenol as directed-heat as directed-xray lumbar spine. Pt is to call if the symptoms do not improve or if they worsen. 08/12/2016 Appointment: Jnaeen Marsh WPtel: [address] [place], [place] [phone] (30 min) Complex 08/12/2016 Patient Education: Patient Medication Summary Completed 08/12/2016 Patient Education: Smoking and Tobacco Addiction Completed 08/12/2016 Appointment: Payton Leon WPtel: [address] [place], [place] [id number] [facility] - Annual Wellness Visit 07/30/2016 Visit Plan: [...] medications. 07/28/2016 Appointment: Kandi Cabrera WPtel: [phone] [facility] (15 min) Moderate 07/28/2016 Patient Education: Patient [...] shot today 01/28/2016 Appointment: Kandi Cabrera WPtel: [address] [place] [address] [place] (15 min) Moderate 01/28/2016 Patient Education: [...] increase activity 07/29/2015 Appointment: Kandi Cabrera WPtel: [facility]9 [facility] [place] [place] (15 min) Moderate 07/29/2015 Patient Education: [...] of control. A ctinic keratosis - left hoahaoism and left nasal bridge - pt to use efudex on the lesions on the nose and face. 03/31/2015 Appointment: Kandi Cabrera WPtel: [address] [place] [address] [place] (15 min) Moderate 03/31/2015 Patient Education: [...] levels. 12/23/2014 Appointment: Kandi Cabrera WPtel: [phone] [facility] [place] [place] (S) New Patient 12/23/2014 Patient Education: Patient Medication Summary Completed 12/23/2014 Patient Education: Hypertension Completed 12/23/2014 Care Plan: Referral Order SNOMED-CT : [id number] Ordered 12/23/2014 Referral: External, Ordering Provider Referral Completed Referral: External, Ordering Provider Referral Appointment Requested Referral: Maggi Reaves Referral Initiated Ref[phone] Referral Appointment Requested Referral: External, Ordering Provider [...] well as a referral back to her [employer] - Dr. Hanna - I suspect she [...] pill bid. [facility] . Hypertension [...] rate controlled. 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 . Hypertension - well controlled - continue [...] or if they worsen. PROBIOTIC - kathy, Lamoda, lactobacilus/acidophilis brand probiotic - these can be [...] levels of control. Actinic keratosis - left hoahaoism and left nasal bridge - pt to [...]
--- OUTSIDE RECORDS SUMMARY | 2018-12-29 13:44 | XMS REPORT | CCD ---
Author Author Kandi Cabrera MD, [facility] Address [address] [place] [address] Phone Care Team Providers Care Academic Affairs Coordinator Name Role Phone PP Unavailable CCM Unavailable Summary Purpose Interface Exchange Insurance Providers Payer name Policy type / Coverage type Covered alliance party ID Effective Begin Date Effective End Date [facility] Commercial Insurance [id number] Unknown WPS Medicare Part B Commercial Insurance [id number] 2017 Unknown Family history Father Diagnosis Age [...] Unknown Retired 12/23/[address]: 95469041 Current every day smoker 12/23/2014 Number of years using tobacco Unknown > 50 trying to quit 12/23/2014 Number of cigarettes/day Unknown 10 (Half a pack) 12/23/[address]: 670337481 Never drinks alcohol 12/23/2014 Allergies, Adverse Reactions, Alerts Substance Reaction Codes Entered Date Inactivated Date Status ciprofloxacin RxNorm: 55342 05/05/2018 No Inactive Date Active SULFA(SULFONAMIDE ANTIBIOTICS) Unknown 05/05/2018 No Inactive Date Active Past Medical History Illness Codes Condition Status Onset Date Resolved Date Chronic atrial fibrillation ICD-9: 427.31 ICD-10: I48.2 Active 08/31/2016 Unknown Essential (primary) hypertension ICD-9: 401.9 ICD-10: I10 Active 12/22/2014 Unknown Other iron deficiency anemias ICD-9: 280.1 ICD-10: D50.8 Active 05/26/2017 Unknown Tobacco abuse counseling ICD-9: V65.42 ICD-10: Z71.6 Active 07/28/2015 Unknown Allergic urticaria ICD- 9: 708.0 ICD-10: L50.0 Active 06/05/2018 Unknown Anemia, unspecified ICD- 9: 285.9 ICD-10: D64.9 Active 05/19/2017 Unknown 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 Active 08/31/2016 Unknown Other insomnia ICD-9: 327.09 ICD-10: G47.09 [...] Problems Condition Codes Effective Dates Condition Status Chronic atrial fibrillation ICD-9: 427.31 ICD-10: I48.2 08/31/2016 Active Essential (primary) hypertension ICD-9: 401.9 ICD-10: I10 12/22/2014 Active Other iron deficiency anemias ICD-9: 280.1 ICD-10: D50.8 05/26/2017 Active Tobacco abuse counseling ICD-9: V65.42 ICD-10: Z71.6 07/28/2015 Active Allergic urticaria ICD- 9: 708.0 ICD-10: L50.0 06/05/2018 Active Anemia, unspecified ICD- 9: 285.9 ICD-10: D64.9 05/19/2017 Active 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 08/31/2016 Active Other insomnia ICD-9: 327.09 ICD-10: G47.09 [...] Instructions perphenazine-amitriptyline 2 mg-10 mg tablet RxNorm: 437536 2 Tablet(s) PO daily 08/15/2018 09/18/2018 Active PA approved: need 7 days while waiting on mail order perphenazine-amitriptyline 2 mg-10 mg tablet RxNorm: 903212 2 Tablet(s) PO daily 08/04/2018 08/03/2018 Inactive waiting on mail order perphenazine-amitriptyline 2 mg-10 mg tablet RxNorm: 724586 2 Tablet(s) PO daily 08/04/2018 08/03/2018 Inactive perphenazine-amitriptyline 2 mg-10 mg tablet RxNorm: 332331 2 Tablet(s) PO daily 08/04/2018 08/14/2018 Inactive Tricor 145 mg tablet RxNorm: 878336 1 Tablet(s) PO daily 07/17/2018 10/09/2019 Active pantoprazole 40 mg tablet,delayed release RxNorm: 233679 1 Tablet(s) PO daily 07/17/2018 10/09/2019 Active hydroxyzine HCl 25 mg tablet RxNorm: 557176 2 Tablet(s) PO QHS may increase to two pills at hs if allergic reactions are occuring 07/17/2018 11/13/2018 Active Synthroid 100 mcg tablet RxNorm: 239059 1 Tablet(s) PO daily 06/05/2018 08/28/2019 Active hydroxyzine HCl 25 mg tablet RxNorm: 057278 1 Tablet(s) PO QHS may increase to two pills at hs if allergic reactions are occuring 06/05/2018 07/16/2018 Inactive Lasix 20 mg tablet RxNorm: 903298 1 Tablet(s) PO daily as needed not more than one time a day 05/19/2018 09/15/2018 Active prednisone 20 mg tablet RxNorm: 391346 2 Tablet(s) PO daily 02/22/2018 02/26/2018 Inactive Cipro 500 mg tablet RxNorm: 694971 1 Tablet(s) PO BID 02/22/2018 02/28/2018 Inactive potassium chloride ER 10 mEq tablet,extended release RxNorm: 717587 1 Tablet(s) PO UD take on days that you take a lasix pill 02/13/2018 02/07/2019 Active Synthroid 100 mcg tablet RxNorm: 538269 1 Tablet(s) PO daily 02/13/2018 06/04/2018 Inactive simvastatin 20 mg tablet RxNorm: 233577 1 Tablet(s) PO QHS 01/13/2018 01/07/2019 Active metronidazole 500 mg tablet RxNorm: 773691 1 Tablet(s) PO TID 11/29/2017 12/08/2017 Inactive alendronate 70 mg tablet RxNorm: 666827 1 Tablet(s) PO weekly 11/29/2017 03/05/2018 Inactive omeprazole 40 mg capsule,delayed release RxNorm: 557970 1 Capsule(s) PO daily 11/11/2017 07/16/2018 Inactive Flagyl 500 mg tablet RxNorm: 698393 1 Tablet(s) PO TID 10/27/2017 11/05/2017 Inactive sucralfate 1 gram tablet RxNorm: 963816 1 Tablet(s) PO TID 07/26/2017 07/20/2018 Inactive fluticasone 50 mcg/actuation nasal spray,suspension RxNorm: 8562693 1 [place] NASAL daily 07/26/2017 No Stop Date Active Protonix 40 mg tablet,delayed release RxNorm: 251144 1 Tablet(s) PO daily 07/26/2017 10/23/2017 Inactive Tricor 145 mg tablet RxNorm: 894907 1 Tablet(s) PO daily 05/26/2017 05/20/2018 Inactive perphenazine-amitriptyline 2 mg-10 mg tablet RxNorm: 579353 2 Tablet(s) PO daily 05/26/2017 05/20/2018 Inactive bupropion HCl 75 mg tablet RxNorm: 945317 1/2 Tablet(s) PO BID 02/07/2017 05/07/2017 Inactive Eliquis 5 mg tablet RxNorm: 9155520 1 Tablet(s) PO BID 01/26/2017 01/20/2018 Inactive sotalol 80 mg tablet RxNorm: 2364623 1 Tablet(s) PO BID 01/26/2017 04/20/2018 Inactive potassium chloride ER 10 mEq tablet,extended release RxNorm: 297075 1 Tablet(s) PO UD take on days that you take a lasix pill 01/26/2017 01/20/2018 Inactive Synthroid 100 mcg tablet RxNorm: 211413 1 Tablet(s) PO daily 01/26/2017 02/12/2018 Inactive diltiazem ER 240 mg capsule,extended release RxNorm: 457436 1 Capsule(s) PO BID 01/26/2017 05/03/2017 Inactive Lasix 20 mg tablet RxNorm: 387567 1 Tablet(s) PO daily as needed not more than one time a day 01/26/2017 05/25/2017 Inactive simvastatin 20 mg tablet RxNorm: 583493 1 Tablet(s) PO QHS 12/21/2016 12/15/2017 Inactive alendronate 70 mg tablet RxNorm: 337688 1 Tablet(s) PO weekly 12/21/2016 11/28/2017 Inactive omeprazole 40 mg capsule,delayed release RxNorm: 520695 1 Capsule(s) PO daily 10/19/2016 10/12/2017 Inactive metoprolol succinate ER 100 mg tablet,extended release 24 hr RxNorm: 267957 1.5 Tablet(s) PO daily 09/17/2016 10/18/2016 Inactive Dosage increased by Dr. Vazquez potassium chloride ER 10 mEq tablet,extended release RxNorm: 140351 1 Tablet(s) PO UD take on days that you take a lasix pill 08/31/2016 12/28/2016 Inactive Lasix 20 mg tablet RxNorm: 191058 1 Tablet(s) PO daily as needed not more than one time a day 08/31/2016 12/28/2016 Inactive Kenalog 40 mg/mL suspension for injection RxNorm: 7710469 1 Milliliter(s) Inj 08/12/2016 08/12/2016 Inactive Tricor 145 mg tablet RxNorm: 676419 1 Tablet(s) PO daily 05/21/2016 05/15/2017 Inactive atenolol 25 mg tablet RxNorm: 108174 1 Tablet(s) PO daily 05/21/2016 08/30/2016 Inactive sucralfate 1 gram tablet RxNorm: 933114 1 Tablet(s) PO TID 05/21/2016 05/15/2017 Inactive enalapril maleate 10 mg tablet RxNorm: 375662 1 Tablet(s) PO daily 04/26/2016 08/30/2016 Inactive perphenazine-amitriptyline 2 mg-10 mg tablet RxNorm: 755559 2 Tablet(s) PO daily 04/26/2016 04/20/2017 Inactive fluticasone 50 mcg/actuation nasal spray,suspension RxNorm: 1146267 1 [place] NASAL daily 04/26/2016 07/25/2017 Inactive Synthroid 100 mcg tablet RxNorm: 916669 1 Tablet(s) PO daily 02/09/2016 01/25/2017 Inactive Synthroid 100 mcg tablet RxNorm: 961875 1 Tablet(s) PO daily 02/09/2016 02/08/2016 Inactive Keflex 500 mg capsule RxNorm: 208638 1 Capsule(s) PO TID 01/28/2016 02/01/2016 Inactive hydrochlorothiazide 25 mg tablet RxNorm: 877726 TAKE 1 TABLET DAILY 01/07/2016 08/30/2016 Inactive enalapril maleate 10 mg tablet RxNorm: 545641 1 Tablet(s) PO daily 12/26/2015 04/25/2016 Inactive hydrochlorothiazide 25 mg tablet RxNorm: 334294 1 Tablet(s) PO daily 12/08/2015 08/30/2016 Inactive omeprazole 40 mg capsule,delayed release RxNorm: 217436 1 Capsule(s) PO daily 12/08/2015 10/18/2016 Inactive simvastatin 20 mg tablet RxNorm: 475408 1 Tablet(s) PO QHS 11/14/2015 11/07/2016 Inactive alendronate 70 mg tablet RxNorm: 130479 1 Tablet(s) PO weekly 10/31/2015 10/24/2016 Inactive Synthroid 112 mcg tablet RxNorm: 241534 1 Tablet(s) PO daily 07/16/2015 02/08/2016 Inactive sucralfate 1 gram tablet RxNorm: 915669 1 Tablet(s) PO TID 06/17/2015 05/20/2016 Inactive perphenazine-amitriptyline 2 mg-10 mg tablet RxNorm: 325321 2 Tablet(s) PO daily 06/17/2015 04/25/2016 Inactive fluticasone 50 mcg/actuation nasal spray,suspension RxNorm: 3144150 1 [place] NASAL daily 06/17/2015 04/25/2016 Inactive fluorouracil 5 % topical cream RxNorm: 617851 APPLY 1 APPLICATION TOPICALLY TWO TIMES A DAY 06/16/2015 06/25/2015 Inactive fluticasone 50 mcg/actuation nasal spray,suspension RxNorm: 951455 1 [place] NASAL daily 06/12/2015 06/16/2015 Inactive atenolol 25 mg tablet RxNorm: 004387 1 Tablet(s) PO daily 05/14/2015 05/07/2016 Inactive Tricor 145 mg tablet RxNorm: 270486 1 Tablet(s) PO daily 04/23/2015 04/16/2016 Inactive Synthroid 125 mcg tablet RxNorm: 981653 1 Tablet(s) PO daily 03/31/2015 07/15/2015 Inactive fluorouracil 5 % topical cream RxNorm: 942740 1 Application TOP BID 03/31/2015 04/09/2015 Inactive Synthroid 137 mcg tablet RxNorm: 178003 1 Tablet(s) PO daily 12/25/2014 12/24/2014 Inactive Synthroid 137 mcg tablet RxNorm: 188666 1 Tablet(s) PO daily 12/25/2014 03/30/2015 Inactive Voltaren 1 % topical gel RxNorm: 004362 4 Gram(s) TOP QID 12/23/2014 04/21/2015 Inactive alendronate 70 mg tablet RxNorm: 825798 1 Tablet(s) PO weekly 12/23/2014 12/22/2014 Inactive alendronate 70 mg tablet RxNorm: 629241 1 Tablet(s) PO weekly 12/23/2014 10/30/2015 Inactive Fosamax 70 mg tablet RxNorm: 077351 1 Tablet(s) PO weekly QW 12/23/2014 01/27/2016 Inactive omeprazole 40 mg capsule,delayed release RxNorm: 882147 1 Capsule(s) PO daily 12/18/2014 12/07/2015 Inactive omeprazole 40 mg capsule,delayed release RxNorm: 440670 1 Capsule(s) PO daily 12/18/2014 12/17/2014 Inactive hydrochlorothiazide 25 mg tablet RxNorm: 728439 1 Tablet(s) PO daily 12/18/2014 12/17/2014 Inactive hydrochlorothiazide 25 mg tablet RxNorm: 881929 1 Tablet(s) PO daily 12/18/2014 12/07/2015 Inactive L-Lysine 1,000 mg tablet RxNorm: 241433 1 Tablet(s) PO daily No Start Date Active folic acid 400 mcg tablet RxNorm: 944385 1 Tablet(s) PO daily No Start Date Active B12 1000 mcg RxNorm: 1/2 Tablet(s) PO daily No Start Date Active Vitamin D3 1,000 unit chewable tablet RxNorm: 561050 1 Tablet(s) PO daily No Start Date Active diltiazem 120 mg tablet RxNorm: 672388 1 Tablet(s) PO daily No Start Date Active metoprolol succinate ER 100 mg tablet,extended release 24 hr RxNorm: 540865 1 Tablet(s) PO daily No Start Date 09/16/2016 Inactive enalapril maleate 10 mg tablet RxNorm: 941973 1 Tablet(s) PO daily No Start Date 12/25/2015 Inactive perphenazine-amitriptyline 2 mg-10 mg tablet RxNorm: 711950 2 Tablet(s) PO daily No Start Date 06/16/2015 Inactive sucralfate 1 gram tablet RxNorm: 320969 1 Tablet(s) PO TID No Start Date 06/16/2015 Inactive hydrochlorothiazide 25 mg tablet RxNorm: 598124 1 Tablet(s) PO daily No Start Date 08/30/2016 Inactive vitamin E (dl, acetate) 400 unit capsule RxNorm: 795960 1 Capsule(s) PO daily No Start Date 03/05/2018 Inactive sotalol 80 mg tablet RxNorm: 5126507 1 Tablet(s) PO BID No Start Date 01/25/2017 Inactive Synthroid 150 mcg tablet RxNorm: 818019 1 Tablet(s) PO daily No Start Date 12/24/2014 Inactive simvastatin 20 mg tablet RxNorm: 722857 1 Tablet(s) PO daily No Start Date 11/13/2015 Inactive Vitamin C RxNorm: PO 1000mg qd No Start Date 03/05/2018 Inactive Fosamax 70 mg tablet RxNorm: 840112 1 Tablet(s) PO weekly No Start Date 12/22/2014 Inactive Tricor 145 mg tablet RxNorm: 787683 1 Tablet(s) PO daily No Start Date 04/22/2015 Inactive diltiazem ER 180 mg capsule,24 hr,extended release RxNorm: 081240 1 Capsule(s) PO daily No Start Date 03/05/2018 Inactive diltiazem ER 240 mg capsule,extended release RxNorm: 439313 1 Capsule(s) PO BID No Start Date 01/25/2017 Inactive Eliquis 5 mg tablet RxNorm: 2414505 1 Tablet(s) PO BID No Start Date 01/25/2017 Inactive fluticasone 50 mcg/actuation nasal spray,suspension RxNorm: 694349 1 [place] NASAL daily No Start Date 06/11/2015 Inactive atenolol 25 mg tablet RxNorm: 623539 1 Tablet(s) PO daily No Start Date 05/13/2015 Inactive Medication Administered Medication Codes Instructions Start Date Status Kenalog 40 mg/mL suspension for injection RxNorm: 2250862 1Milliliter 08/12/2016 No longer Active Immunizations Vaccine Codes Date Status Influenza CVX: 141 03/21/2018 completed Influenza CVX: 141 02/09/2017 completed Pneumococcal (Adult) CVX: 133 02/09/2017 completed Influenza CVX: 141 01/28/2016 completed Zoster CVX: 121 07/22/2011 completed Pneumococcal CVX: 33 11/20/2008 completed Assessments Condition Codes Effective Dates Other iron deficiency anemias ICD-10: D50.8 ICD-9: 280.1 07/17/2018 Tobacco abuse counseling ICD-10: Z71.6 ICD-9: V65.42 07/17/2018 Essential (primary) hypertension ICD-10: I10 ICD-9: 401.9 07/17/2018 Chronic atrial fibrillation ICD-10: I48.2 ICD-9: 427.31 07/17/2018 Other insomnia ICD-10: G47.09 ICD-9: 327.09 06/05/2018 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 ICD-9: 244.8 06/05/2018 Allergic urticaria ICD-10: L50.0 ICD-9: 708.0 [...] Reason For Visit Effective Dates Notes hypertension 07/17/2018 hypertension 06/05/2018 Annual Medicare Wellness [...] Ord40 Fe-%Sat 19.1 % 08/14/2018 Comp Metabolic Tet466 NA 136 mEq/L 08/14/2018 Comp Metabolic Cmn738 K 4.3 mEq/L 08/14/2018 Comp Metabolic Jhi297 CL 100 mEq/L 08/14/2018 Comp Metabolic Ubm304 CO2 28.0 mEq/L 08/14/2018 Comp Metabolic Uza542 ANION GAP 12 08/14/2018 Comp Metabolic Brz973 GLUCOSE 111 mg/dL 08/14/2018 Comp Metabolic Vcj623 Creat 0.9 mg/dL 08/14/2018 Comp Metabolic Gng630 eGFR 66 ml/min/1.73m2 08/14/2018 Comp Metabolic Gem018 BUN 22 mg/dL 08/14/2018 Comp Metabolic Klg150 B/C Ratio 25.3 Ratio 08/14/2018 Comp Metabolic Izp696 CALCIUM 10.1 mg/dL 08/14/2018 Comp Metabolic Tyv421 ALK PHOS 45 U/L 08/14/2018 Comp Metabolic Bgx954 AST(SGOT) 16 U/L 08/14/2018 Comp Metabolic Izj652 ALT(SGPT) 7 U/L 08/14/2018 Comp Metabolic Fkz208 BILI T 0.4 mg/dL 08/14/2018 Comp Metabolic Ptw688 ALBUMIN 4.0 g/dL 08/14/2018 Comp Metabolic Ptp993 TPRO 7.0 g/dL 08/14/2018 Comp Metabolic Aex293 GLOB 3.0 g/dL 08/14/2018 Comp Metabolic Utm992 A/G Ratio 1.3 Ratio 08/14/2018 Comp Metabolic Efm319 Osmo 276 mOsmo 08/14/2018 Cbc With Differential [...] 26.2 pg 08/14/2018 Cbc With Differential Ord2 [place]% 9.1 % 08/14/2018 Cbc With Differential Ord2 Eos% 1.8 % 08/14/2018 Cbc With Differential Ord2 MCHC 31.0 pg 08/14/2018 Cbc With Differential Ord2 PLT 293 K/ul 08/14/2018 Cbc With Differential Ord2 Baso% 0.5 % 08/14/2018 Cbc With Differential Ord2 Neut ABS# 4.34 K/ul 08/14/2018 Cbc With Differential Ord2 Lymph ABS# 0.93 K/ul 08/14/2018 Cbc With Differential Ord2 [place] ABS# 0.5 K/ul 08/14/2018 Cbc With Differential Ord2 Eos ABS# 0.1 K/ul 08/14/2018 Cbc With Differential Ord2 Baso ABS# 0.0 K/ul 08/14/2018 Free T4 Zkq015 FREE T4 1.00 ng/dL 08/14/2018 Tibc Ord40 [...] 24.9 pg 06/21/2018 Cbc With Differential Ord2 [place]% 15.0 % 06/21/2018 Cbc With Differential Ord2 [...] 1.35 K/ul 06/21/2018 Cbc With Differential Ord2 [place] ABS# 0.9 K/ul 06/21/2018 Cbc With Differential [...] 24.9 pg 06/01/2018 Cbc With Differential Ord2 [place]% 12.8 % 06/01/2018 Cbc With Differential Ord2 [...] 0.81 K/ul 06/01/2018 Cbc With Differential Ord2 [place] ABS# 0.7 K/ul 06/01/2018 Cbc With Differential [...] 29.9 pg 03/17/2018 Cbc With Differential Ord2 [place]% 13.3 % 03/17/2018 Cbc With Differential Ord2 [...] 0.90 K/ul 03/17/2018 Cbc With Differential Ord2 [place] ABS# 0.8 K/ul 03/17/2018 Cbc With Differential [...] 30.2 pg 02/22/2018 Cbc With Differential Ord2 [place]% 11.5 % 02/22/2018 Cbc With Differential Ord2 [...] 0.86 K/ul 02/22/2018 Cbc With Differential Ord2 [place] ABS# 0.7 K/ul 02/22/2018 Cbc With Differential Ord2 Eos ABS# 0.2 K/ul 02/22/2018 Cbc With Differential Ord2 Baso ABS# 0.1 K/ul 02/22/2018 Tsh Ord6 TSH (3rd IS) 0.66 uIU/mL 02/22/2018 Free T4 Gfv214 FREE T4 1.22 ng/dL 02/22/2018 Comp Metabolic Kaj705 NA 136 mEq/L 02/22/2018 Comp Metabolic Fwo695 K 4.4 mEq/L 02/22/2018 Comp Metabolic Vpb652 CL 102 mEq/L 02/22/2018 Comp Metabolic Cez179 CO2 23.0 mEq/L 02/22/2018 Comp Metabolic Hkf755 ANION GAP 15 02/22/2018 Comp Metabolic Fht076 GLUCOSE 94 mg/dL 02/22/2018 Comp Metabolic Xzu302 Creat 1.2 mg/dL 02/22/2018 Comp Metabolic Kfv356 eGFR 46 ml/min/1.73m2 02/22/2018 Comp Metabolic Kqd054 BUN 31 mg/dL 02/22/2018 Comp Metabolic Nwz586 B/C Ratio 25.8 Ratio 02/22/2018 Comp Metabolic Ahs736 CALCIUM 9.2 mg/dL 02/22/2018 Comp Metabolic Jsa435 ALK PHOS 34 U/L 02/22/2018 Comp Metabolic Qvi285 AST(SGOT) 18 U/L 02/22/2018 Comp Metabolic Nlv151 ALT(SGPT) 8 U/L 02/22/2018 Comp Metabolic Bok679 BILI T 0.4 mg/dL 02/22/2018 Comp Metabolic Ejp037 ALBUMIN 3.6 g/dL 02/22/2018 Comp Metabolic Xlz615 TPRO 6.2 g/dL 02/22/2018 Comp Metabolic Pau002 GLOB 2.6 g/dL 02/22/2018 Comp Metabolic Ruo475 A/G Ratio 1.4 Ratio 02/22/2018 Comp Metabolic Ixm945 Osmo 278 mOsmo 02/22/2018 Free T4 Gtz490 FREE T4 1.11 ng/dL 10/27/2017 Lipid Ord30 [...] 30.7 pg 10/27/2017 Cbc With Differential Ord2 [place]% 11.3 % 10/27/2017 Cbc With Differential Ord2 [...] 1.16 K/ul 10/27/2017 Cbc With Differential Ord2 [place] ABS# 0.6 K/ul 10/27/2017 Cbc With Differential Ord2 Eos ABS# 0.2 K/ul 10/27/2017 Cbc With Differential Ord2 Baso ABS# 0.0 K/ul 10/27/2017 Comp Metabolic Smc682 NA 135 mEq/L 10/27/2017 Comp Metabolic Bmh668 K 4.7 mEq/L 10/27/2017 Comp Metabolic Kvz706 CL 101 mEq/L 10/27/2017 Comp Metabolic Duj929 CO2 23.0 mEq/L 10/27/2017 Comp Metabolic Qlg455 ANION GAP 16 10/27/2017 Comp Metabolic Gie667 GLUCOSE 84 mg/dL 10/27/2017 Comp Metabolic Kut394 Creat 1.2 mg/dL 10/27/2017 Comp Metabolic Qut741 eGFR 46 ml/min/1.73m2 10/27/2017 Comp Metabolic Vxy384 BUN 30 mg/dL 10/27/2017 Comp Metabolic Zzu089 B/C Ratio 25.2 Ratio 10/27/2017 Comp Metabolic Ris956 CALCIUM 9.4 mg/dL 10/27/2017 Comp Metabolic Fgq060 ALK PHOS 30 U/L 10/27/2017 Comp Metabolic Dqd364 AST(SGOT) 25 U/L 10/27/2017 Comp Metabolic Gvy500 ALT(SGPT) 12 U/L 10/27/2017 Comp Metabolic Vdz365 BILI T 0.5 mg/dL 10/27/2017 Comp Metabolic Tzq508 ALBUMIN 3.7 g/dL 10/27/2017 Comp Metabolic Ufw171 TPRO 6.5 g/dL 10/27/2017 Comp Metabolic Lkj920 GLOB 2.8 g/dL 10/27/2017 Comp Metabolic Rxf242 A/G Ratio 1.3 Ratio 10/27/2017 Comp Metabolic Vsg576 Osmo 275 mOsmo 10/27/2017 Hgb & Hct Ord65 HGB 12.2 g/dl 07/29/2017 Hgb & Hct Ord65 HCT 38.8 % 07/29/2017 Tibc Ord40 Iron 79 ug/dl 07/26/2017 Tibc Ord40 UIBC 380 ug/dL 07/26/2017 Tibc Ord40 TIBC 459 ug/dL 07/26/2017 Tibc Ord40 Fe-%Sat 17.2 % 07/26/2017 Tsh Ord6 TSH (3rd IS) 0.46 uIU/mL 07/26/2017 Ferritin Ord22 FERRITIN 83.6 ng/mL 07/26/2017 Free T4 Aie295 FREE T4 1.00 ng/dL 07/26/2017 Tibc Ord40 [...] 31.0 pg 08/02/2016 Cbc With Differential Ord2 [place]% 9.4 % 08/02/2016 Cbc With Differential Ord2 [...] 1.44 K/ul 08/02/2016 Cbc With Differential Ord2 [place] ABS# 0.7 K/ul 08/02/2016 Cbc With Differential Ord2 Eos ABS# 0.3 K/ul 08/02/2016 Cbc With Differential Ord2 Baso ABS# 0.1 K/ul 08/02/2016 Lipid Ord30 CHOL 142 mg/dL 08/02/2016 Lipid Ord30 HDL 40.0 mg/dl 08/02/2016 Lipid Ord30 TRIG 169 mg/dL 08/02/2016 Lipid Ord30 LDL 68 mg/dL 08/02/2016 Lipid Ord30 C/HDL 3.6 Ratio 08/02/2016 Comp Metabolic Vnx543 NA 139 mEq/L 08/02/2016 Comp Metabolic Qny288 K 5.2 mEq/L 08/02/2016 Comp Metabolic Ozi944 CL 108 mEq/L 08/02/2016 Comp Metabolic Bjm875 CO2 22.0 mEq/L 08/02/2016 Comp Metabolic Rwg567 ANION GAP 14 08/02/2016 Comp Metabolic Tgc098 GLUCOSE 103 mg/dL 08/02/2016 Comp Metabolic Qsn460 Creat 1.1 mg/dL 08/02/2016 Comp Metabolic Rqs469 eGFR 54 ml/min/1.73m2 08/02/2016 Comp Metabolic Erc544 BUN 26 mg/dL 08/02/2016 Comp Metabolic Uws959 B/C Ratio 24.8 Ratio 08/02/2016 Comp Metabolic Jdz992 CALCIUM 9.4 mg/dL 08/02/2016 Comp Metabolic Abn328 ALK PHOS 41 U/L 08/02/2016 Comp Metabolic Vbu521 AST(SGOT) 18 U/L 08/02/2016 Comp Metabolic Xcd807 ALT(SGPT) 10 U/L 08/02/2016 Comp Metabolic Usw146 BILI T 0.3 mg/dL 08/02/2016 Comp Metabolic Nsn170 ALBUMIN 3.7 g/dL 08/02/2016 Comp Metabolic Fql655 TPRO 6.5 g/dL 08/02/2016 Comp Metabolic Xpi332 GLOB 2.8 g/dL 08/02/2016 Comp Metabolic Vuy751 A/G Ratio 1.3 Ratio 08/02/2016 Comp Metabolic Aqi440 Osmo 283 mOsmo 08/02/2016 Free T4 Fjd156 FREE T4 1.08 ng/dL 08/02/2016 Tsh Ord6 hTSH II 0.35 uIU/mL 05/13/2016 Free T4 Mnv454 FREE T4 0.78 ng/dL 05/13/2016 Free T4 Eni954 FREE T4 1.13 ng/dL 01/28/2016 Tsh Ord6 [...] 30.2 pg 07/14/2015 Cbc With Differential Ord2 [place]% 9.1 % 07/14/2015 Cbc With Differential Ord2 [...] 1.80 K/ul 07/14/2015 Cbc With Differential Ord2 [place] ABS# 0.7 K/ul 07/14/2015 Cbc With Differential [...] Ord30 C/HDL 3.0 Ratio 07/14/2015 Comp Metabolic Ikx291 NA 136 mEq/L 07/14/2015 Comp Metabolic Hpc805 K 4.4 mEq/L 07/14/2015 Comp Metabolic Xjr389 CL 101 mEq/L 07/14/2015 Comp Metabolic Kpf490 CO2 27.0 mEq/L 07/14/2015 Comp Metabolic Xfo105 ANION GAP 12 07/14/2015 Comp Metabolic Yrl561 GLUCOSE 97 mg/dL 07/14/2015 Comp Metabolic Etu621 Creat 1.0 mg/dL 07/14/2015 Comp Metabolic Sxt973 eGFR 56 ml/min/1.73m2 07/14/2015 Comp Metabolic Pvf630 BUN 27 mg/dL 07/14/2015 Comp Metabolic Uta873 B/C Ratio 26.7 Ratio 07/14/2015 Comp Metabolic Dgq027 CALCIUM 9.3 mg/dL 07/14/2015 Comp Metabolic Hmc470 ALK PHOS 33 U/L 07/14/2015 Comp Metabolic Nfd526 AST(SGOT) 14 U/L 07/14/2015 Comp Metabolic Yzs471 ALT(SGPT) 8 U/L 07/14/2015 Comp Metabolic Gtn676 BILI T 0.4 mg/dL 07/14/2015 Comp Metabolic Gbg816 ALBUMIN 3.8 g/dL 07/14/2015 Comp Metabolic Rel318 TPRO 6.6 g/dL 07/14/2015 Comp Metabolic Mbq481 GLOB 2.8 g/dL 07/14/2015 Comp Metabolic Aet757 A/G Ratio 1.4 Ratio 07/14/2015 Comp Metabolic Tko166 Osmo 277 mOsmo 07/14/2015 Tsh Ord6 hTSH II 0.23 uIU/mL 07/14/2015 Free T4 Mnw329 FREE T4 1.19 ng/dL 07/14/2015 Cbc With [...] Ord30 C/HDL 3.4 Ratio 03/26/2015 Comp Metabolic Ogf600 NA 135 mEq/L 03/26/2015 Comp Metabolic Irg901 K 5.0 mEq/L 03/26/2015 Comp Metabolic Hzn142 CL 99 mEq/L 03/26/2015 Comp Metabolic Gzq367 CO2 27.0 mEq/L 03/26/2015 Comp Metabolic Enu882 ANION GAP 14 03/26/2015 Comp Metabolic Ifd106 GLUCOSE 88 mg/dL 03/26/2015 Comp Metabolic Urk012 Creat 1.1 mg/dL 03/26/2015 Comp Metabolic Smn669 eGFR 50 ml/min/1.73m2 03/26/2015 Comp Metabolic Swc462 BUN 27 mg/dL 03/26/2015 Comp Metabolic Vwy364 B/C Ratio 24.1 Ratio 03/26/2015 Comp Metabolic Wuk710 CALCIUM 9.9 mg/dL 03/26/2015 Comp Metabolic Nnw259 ALK PHOS 30 U/L 03/26/2015 Comp Metabolic Zgf823 AST(SGOT) 16 U/L 03/26/2015 Comp Metabolic Xpp347 ALT(SGPT) 8 U/L 03/26/2015 Comp Metabolic Hxj322 BILI T 0.4 mg/dL 03/26/2015 Comp Metabolic Nyv502 ALBUMIN 3.9 g/dL 03/26/2015 Comp Metabolic Udp012 TPRO 6.4 g/dL 03/26/2015 Comp Metabolic Ndh481 GLOB 2.5 g/dL 03/26/2015 Comp Metabolic Wuz835 A/G Ratio 1.6 Ratio 03/26/2015 Comp Metabolic Mbe549 Osmo 275 mOsmo 03/26/2015 Free T4 Hfh423 FREE T4 1.22 ng/dL 03/26/2015 Tsh Ord6 hTSH II 0.20 uIU/mL 03/26/2015 Vitamin D 25 Oh [id number] VITAMIN D, 25 HYDROXY 51.09 ng/mL 12/25/2014 Tsh Ord6 hTSH II 0.09 uIU/mL 12/23/2014 Free T4 [id number] FREE T4 1.30 ng/dL 12/23/2014 Comp Metabolic Jab942 NA 135 mEq/L 12/23/2014 Comp Metabolic Mhb311 K 4.7 mEq/L 12/23/2014 Comp Metabolic Clv452 CL 100 mEq/L 12/23/2014 Comp Metabolic Mqs601 CO2 23.0 mEq/L 12/23/2014 Comp Metabolic Ebi415 ANION GAP 17 12/23/2014 Comp Metabolic Rrk325 GLUCOSE 93 mg/dL 12/23/2014 Comp Metabolic Ejw211 Creat 1.1 mg/dL 12/23/2014 Comp Metabolic Nsh743 eGFR 53 ml/min/1.73m2 12/23/2014 Comp Metabolic Lso824 BUN 26 mg/dL 12/23/2014 Comp Metabolic Zyr328 B/C Ratio 24.3 Ratio 12/23/2014 Comp Metabolic Cab342 CALCIUM 9.5 mg/dL 12/23/2014 Comp Metabolic Qca811 ALK PHOS 27 U/L 12/23/2014 Comp Metabolic Byz489 AST(SGOT) 16 U/L 12/23/2014 Comp Metabolic Cgq288 ALT(SGPT) 8 U/L 12/23/2014 Comp Metabolic Uzn392 BILI T 0.4 mg/dL 12/23/2014 Comp Metabolic Ocr224 ALBUMIN 3.9 g/dL 12/23/2014 Comp Metabolic Abg198 TPRO 6.7 g/dL 12/23/2014 Comp Metabolic Qug677 GLOB 2.8 g/dL 12/23/2014 Comp Metabolic Osr706 A/G Ratio 1.4 Ratio 12/23/2014 Comp Metabolic Qrb579 Osmo 275 mOsmo 12/23/2014 Review of Systems System Result Effective Dates Constitutional No recent illness 07/17/2018 Constitutional No [...] inspection of skin Consistency: thick 03/31/2015 left bahai and left nasal bridge - actinic keratosis [...] SUBSEQ VISIT CPT- 4: G0439 05/05/2018 TOBACCO-USE THERAPEUTIC RIDING INSTRUCTOR 3-[address]: 161366364 CPT-4: G0436 04/11/2017 PNEUMOCOCCAL VACC [address]: 45747773 CPT-4: 77708 02/09/2017 FLU VACC PRSV FREE INC ANTIG CPT-4: 36648 02/09/2017 ADMIN INFLUENZA VIRUS VAC CPT-4: G0008 02/09/2017 ADMIN PNEUMOCOCCAL VACCINE SNOMED CT: 13433526 CPT-4: G0009 02/09/2017 TOBACCO-USE THERAPEUTIC RIDING INSTRUCTOR 3-[address]: 571542291 CPT-4: G0436 02/07/2017 TOBACCO-USE THERAPEUTIC RIDING INSTRUCTOR 3-[address]: 423976106 CPT-4: G0436 10/19/2016 TOBACCO-USE THERAPEUTIC RIDING INSTRUCTOR 3-[address]: 480640185 CPT-4: G0436 08/31/2016 TRIAMCINOLONE ACET INJ NOS CPT-4: J3301 08/12/2016 TOBACCO-USE THERAPEUTIC RIDING INSTRUCTOR 3-[address]: 145112004 CPT-4: G0436 07/28/2016 ADMIN INFLUENZA VIRUS VAC CPT-4: G0008 01/28/2016 FLU VACC 4 JULISA 3 YRS PLUS IM SNOMED CT: 04195698 CPT-4: 98643 01/28/2016 TOBACCO-USE THERAPEUTIC RIDING INSTRUCTOR 3-[address]: 980087196 CPT-4: G0436 07/29/2015 Vital Signs Date Vital 07/17/2018 Blood Pressure 1: 126/54 Code: 8480-6 BMI: 24.4 Code: 36793-1 Heart Rate 1: 70 bpm Height: 5'4" SpO2: 98% Weight: 142 lbs 06/05/2018 Blood Pressure 1: 122/60 Code: 8480-6 BMI: 25.4 Code: 21548-0 Heart Rate 1: 74 bpm Height: 5'4" SpO2: 98% Weight: 148 lbs 05/05/2018 Blood Pressure 1: 130/64 Code: 8480-6 BMI: 25.1 Code: 37693-6 Heart Rate 1: 72 bpm Height: 5'4" SpO2: 97% Weight: 146 lbs 04/03/2018 Blood Pressure 1: 142/80 Code: 8480-6 BMI: 25.2 Code: 84940-8 Heart Rate 1: 99 bpm Height: 5'4" SpO2: 97% Weight: 147 lbs 03/06/2018 Blood Pressure 1: 140/80 Code: 8480-6 BMI: 26.1 Code: 47925-0 Heart Rate 1: 71 bpm Height: 5'4" SpO2: 98% Weight: 152 lbs 02/22/2018 Blood Pressure 1: 146/68 Code: 8480-6 BMI: 26.6 Code: 32123-4 Heart Rate 1: 88 bpm Height: 5'4" SpO2: 97% Weight: 155 lbs 12/13/2017 Blood Pressure 1: 132/68 Code: 8480-6 BMI: 26.6 Code: 92744-2 Heart Rate 1: 72 bpm Height: 5'4" SpO2: 94% Weight: 154 lbs 14 oz 11/29/2017 Blood Pressure 1: 130/64 Code: 8480-6 BMI: 26.1 Code: 92245-1 Heart Rate 1: 81 bpm Height: 5'4" SpO2: 94% Weight: 152 lbs 10/27/2017 Blood Pressure 1: 120/62 Code: 8480-6 BMI: 25.9 Code: 36029-7 Heart Rate 1: 70 bpm Height: 5'4" SpO2: 96% Weight: 151 lbs 07/26/2017 Blood Pressure 1: 146/70 Code: 8480-6 BMI: 26.3 Code: 52623-2 Heart Rate 1: 69 bpm Height: 5'4" SpO2: 98% Weight: 153 lbs 05/26/2017 Blood Pressure 1: 142/76 Code: 8480-6 BMI: 26.4 Code: 40069-3 Heart Rate 1: 59 bpm Height: 5'4" SpO2: 99% Weight: 154 lbs 04/11/2017 Blood Pressure 1: 134/64 Code: 8480-6 BMI: 26.6 Code: 27098-4 Heart Rate 1: 65 bpm Height: 5'4" SpO2: 98% Weight: 155 lbs 02/07/2017 Blood Pressure 1: 120/72 Code: 8480-6 Heart Rate 1: 72 bpm Height: 5'4" SpO2: 96% Weight: 01/26/2017 Blood Pressure 1: 146/68 Code: 8480-6 BMI: 26.4 Code: 26605-8 Heart Rate 1: 96 bpm Height: 5'4" SpO2: 97% Weight: 154 lbs 10/19/2016 Blood Pressure 1: 144/76 Code: 8480-6 BMI: 25.8 Code: 53830-2 Heart Rate 1: 68 bpm Height: 5'4" SpO2: 96% Weight: 150 lbs 8 oz 09/22/2016 Blood Pressure 1: 122/80 Code: 8480-6 BMI: 26.1 Code: 39592-2 Heart Rate 1: 111 bpm Height: 5'4" SpO2: 97% Weight: 152 lbs 08/31/2016 Blood Pressure 1: 152/82 Code: 8480-6 BMI: 27.1 Code: 03341-0 Heart Rate 1: 118 bpm Height: 5'4" SpO2: 96% Weight: 158 lbs 08/12/2016 Blood Pressure 1: 146/78 Code: 8480-6 BMI: 26.9 Code: 68571-3 Heart Rate 1: 68 bpm Height: 5'4" SpO2: 97% Weight: 157 lbs 07/28/2016 Blood Pressure 1: 128/64 Code: 8480-6 BMI: 27.1 Code: 98668-1 Heart Rate 1: 63 bpm Height: 5'4" SpO2: 97% Weight: 158 lbs 01/28/2016 Blood Pressure 1: 130/70 Code: 8480-6 BMI: 27.3 Code: 57119-5 Heart Rate 1: 60 bpm Height: 5'4" SpO2: 95% Weight: 159 lbs 07/29/2015 Blood Pressure 1: 136/80 Code: 8480-6 BMI: 28.1 Code: 91790-8 Heart Rate 1: 68 bpm Height: 5'4" SpO2: 96% Weight: 163 lbs 8 oz 03/31/2015 Blood Pressure 1: 138/88 Code: 8480-6 BMI: 27.5 Code: 01233-8 Heart Rate 1: 72 bpm Height: 5'4" Weight: 160 lbs 12/23/2014 Blood Pressure 1: 138/68 Code: 8480-6 BMI: 27.1 Code: 55746-7 Heart Rate 1: 63 bpm Height: 5'4" SpO2: 94% Weight: 158 lbs Functional Status No Functional Status data History of Present Illness Symptom Name Status Result Effective Date Notes Quality chronic 07/17/2018 None Quality intermittent 07/17/2018 [...] data Encounters Encounter Performer Location Codes Date ([id number]) [id number] EST. PATIENT, LEVEL IV Diagnosis: Essential (primary) hypertension[ICD10: I10] Diagnosis: Other iron deficiency anemias[ICD10: D50.8] Diagnosis: Tobacco abuse counseling[ICD10: Z71.6] Diagnosis: Chronic atrial fibrillation[ICD10: I48.2] Kandi Cabrera MD, [facility] CPT-4: 08000 07/17/2018 ([id number]) BEHAV CHNG SMOKING 3-10 MIN Diagnosis: [ICD9: ] Diagnosis: [ICD9: ] Diagnosis: [ICD9: ] Diagnosis: [ICD9: ] Kandi Cabrera MD, [facility] CPT-4: 25078 07/17/2018 [id number]) 86232 EST. PATIENT, LEVEL IV Diagnosis: Other specified anemias[ICD10: D64.89] Diagnosis: Other insomnia[ICD10: G47.09] Diagnosis: Atrophy of thyroid (acquired)[ICD10: E03.4] Diagnosis: Allergic urticaria[ICD10: L50.0] Kandi Cabrera MD, [facility] CPT-4: 72020 06/05/2018 [id number]) 34260 EST. PATIENT, LEVEL IV Diagnosis: Essential (primary) hypertension[ICD10: I10] Diagnosis: Nonrheumatic aortic (valve) stenosis[ICD10: I35.0] Diagnosis: Atrophy of thyroid (acquired)[ICD10: E03.4] Diagnosis: Chronic atrial fibrillation[ICD10: I48.2] Kandi Cabrera MD [facility] CPT-4: 45023 04/03/2018 ([id number]) 43695 EST. PATIENT, LEVEL IV Diagnosis: Essential (primary) hypertension[ICD10: I10] Diagnosis: Chronic atrial fibrillation[ICD10: I48.2] Diagnosis: Nonrheumatic aortic (valve) stenosis[ICD10: I35.0] Diagnosis: Age-related osteoporosis without current pathological fracture[ICD10: M81.0] Kandi Cabrera MD [facility] CPT-4: 60670 03/06/2018 92776 EST. PATIENT, LEVEL III Diagnosis: Low back pain[ICD10: M54.5] Diagnosis: Dysuria[ICD10: R30.0] Diagnosis: Gastro-esophageal reflux disease without esophagitis[ICD10: K21.9] Payton Cabrera MD [facility] CPT-4: 00388 02/22/2018 ([id number]) 95267 EST. PATIENT, LEVEL III Diagnosis: Atrophy of thyroid (acquired)[ICD10: E03.4] Diagnosis: Other iron deficiency anemias[ICD10: D50.8] Diagnosis: Epigastric pain[ICD10: R10.13] Kandi Cabrera MD [facility] CPT-4: 01841 12/13/2017 ([id number]) 94815 EST. PATIENT, LEVEL IV Diagnosis: Diverticulitis of large intestine without perforation or abscess without bleeding[ICD10: K57.32] Kandi Cabrera MD [facility] CPT-4: 53902 11/29/2017 ([id number]) 31819 EST. PATIENT, LEVEL IV Diagnosis: Atrophy of thyroid (acquired)[ICD10: E03.4] Diagnosis: Other iron deficiency anemias[ICD10: D50.8] Diagnosis: Epigastric pain[ICD10: R10.13] Diagnosis: Right lower quadrant pain[ICD10: R10.31] Diagnosis: Left lower quadrant pain[ICD10: R10.32] Kandi Cabrera MD [facility] CPT-4: 99894 10/27/2017 20854 EST. PATIENT, LEVEL IV Diagnosis: Atrophy of thyroid (acquired)[ICD10: E03.4] Diagnosis: Other iron deficiency anemias[ICD10: D50.8] Diagnosis: Essential (primary) hypertension[ICD10: I10] Diagnosis: Gastro-esophageal reflux disease without esophagitis[ICD10: K21.9] Payton Cabrera MD, [facility] CPT-4: 18968 07/26/2017 ([id number]) 43337 EST. PATIENT, LEVEL IV Diagnosis: Other iron deficiency anemias[ICD10: D50.8] Diagnosis: Atrophy of thyroid (acquired)[ICD10: E03.4] Diagnosis: Tobacco use[ICD10: Z72.0] Diagnosis: Essential (primary) hypertension[ICD10: I10] Diagnosis: Low back pain[ICD10: M54.5] Kandi Cabrera MD, [facility] CPT-4: 23763 05/26/2017 ([id number]) 48699 EST. PATIENT, LEVEL IV Diagnosis: Shortness of breath[ICD10: R06.02] Diagnosis: Tobacco use[ICD10: Z72.0] Diagnosis: Chronic atrial fibrillation[ICD10: I48.2] Kandi Cabrera MD, [facility] CPT-4: 25176 04/11/2017 ([id number]) 68325 EST. PATIENT, LEVEL III Diagnosis: Unsteadiness on feet[ICD10: R26.81] Diagnosis: Tobacco use[ICD10: Z72.0] Kandi Cabrera MD, [facility] CPT-4: 02805 02/07/2017 ([id number]) 81262 EST. PATIENT, LEVEL IV Diagnosis: Cough[ICD10: R05] Diagnosis: Essential (primary) hypertension[ICD10: I10] Diagnosis: Chronic atrial fibrillation[ICD10: I48.2] Diagnosis: Unsteadiness on feet[ICD10: R26.81] Kandi Cabrera MD, [facility] CPT- 4: 53574 01/26/2017 ([id number]) 01893 EST. PATIENT, LEVEL IV Diagnosis: Essential (primary) hypertension[ICD10: I10] Diagnosis: Atrophy of thyroid (acquired)[ICD10: E03.4] Diagnosis: Tobacco use[ICD10: Z72.0] Diagnosis: Chronic atrial fibrillation[ICD10: I48.2] Diagnosis: Mixed hyperlipidemia[ICD10: E78.2] Kandi Cabrera MD, [facility] CPT- 4: 97505 10/19/2016 ([id number]) 70496 EST. PATIENT, LEVEL IV Diagnosis: Atrophy of thyroid (acquired)[ICD10: E03.4] Diagnosis: Mixed hyperlipidemia[ICD10: E78.2] Diagnosis: Essential (primary) hypertension[ICD10: I10] Kandi Cabrera MD, [facility] CPT-4: 96469 09/22/2016 ([id number]) 35601 EST. PATIENT, LEVEL IV Diagnosis: Essential (primary) hypertension[ICD10: I10] Diagnosis: Atrophy of thyroid (acquired)[ICD10: E03.4] Diagnosis: Chronic atrial fibrillation[ICD10: I48.2] Kandi Cabrera MD, [facility] CPT-4: 61931 08/31/2016 ([id number]) 00824 EST. PATIENT, LEVEL III Diagnosis: Low back pain[ICD10: M54.5] Diagnosis: Sacroiliitis, not elsewhere classified[ICD10: M46.1] Janeen Cabrera MD, [facility] CPT-4: 94167 08/12/2016 ([id number]) 68532 EST. PATIENT, LEVEL IV Diagnosis: Mixed hyperlipidemia[ICD10: E78.2] Diagnosis: Essential (primary) hypertension[ICD10: I10] Diagnosis: Atrophy of thyroid (acquired)[ICD10: E03.4] Kandi Cabrera MD, [facility] CPT-4: 82805 07/28/2016 ([id number]) 39577 EST. PATIENT, LEVEL IV Diagnosis: Hypothyroidism, unspecified[ICD10: E03.9] Diagnosis: Essential (primary) hypertension[ICD10: I10] Diagnosis: Mixed hyperlipidemia[ICD10: E78.2] Diagnosis: Cellulitis of left lower limb[ICD10: L03.116] Diagnosis: Encounter for immunization[ICD10: Z23] Kandi Cabrera MD, [facility] CPT-4: 77103 01/28/2016 ([id number]) 22063 EST. PATIENT, LEVEL IV Diagnosis: Essential (primary) hypertension[ICD10: I10] Diagnosis: Hypothyroidism, unspecified[ICD10: E03.9] Diagnosis: Diarrhea, unspecified[ICD10: R19.7] Diagnosis: Tobacco use[ICD10: Z72.0] Diagnosis: Tobacco abuse counseling[ICD10: Z71.6] Diagnosis: Other obesity due to excess calories[ICD10: E66.09] Kandi Cabrera MD, [facility] CPT-4: 22675 07/29/2015 ([id number]) 11677 EST. PATIENT, LEVEL IV Diagnosis: Essential (primary) hypertension[ICD10: I10] Diagnosis: Hypothyroidism, unspecified[ICD10: E03.9] Diagnosis: Actinic keratosis[ICD10: L57.0] Kandi Cabrera MD, [facility] CPT-4: 54531 03/31/2015 ([id number]) OFFICE VISIT, NEW - LEVEL 4 Diagnosis: ESSENTIAL HYPERTENSION[ICD9: 401.9] Diagnosis: HYPOTHYROIDISM[ICD9: 244.9] Diagnosis: HYPERLIPIDEMIA[ICD9: 272.4] Diagnosis: Osteoporosis[ICD9: 733.00] Diagnosis: OSTEOARTH NOS-UNSPEC[ICD9: 715.90] Diagnosis: Sacroiliitis[ICD9: 720.2] Kandi Cabrera MD, [facility] CPT-4: 37829 12/23/2014 Plan of Care Planned Activity Notes [...] status. 07/17/2018 Appointment: Kandi Cabrera WPtel: [facility]5 [facility] (15 min) Moderate 07/17/2018 Patient Education: Patient Medication Summary Completed 07/17/2018 Patient Education: Hypertension Completed 07/17/2018 Appointment: K[facility] (15 min) Moderate 07/11/2018 Visit Plan: [...] hydroxyzine. 06/05/2018 Appointment: [phone] [facility] (15 min) Moderate 06/05/2018 Patient Education: [...] Addiction Completed 05/05/2018 Appointment: [facility] [phone] [facility] (15 min) Moderate 04/11/2018 Visit Plan: [...] improving. 04/03/2018 Appointment: [phone] [facility] (15 min) Moderate 04/03/2018 Patient Education: [...] a conversation about surgical intervention with her Private Branch Exchange Service Advisor. 03/06/2018 Appointment: [facility] [phone] [facility] [place] (15 min) Moderate 03/06/2018 Patient Education: [...] 02/22/2018 Appointment: Payton Leon WPtel: [facility]5 [facility] (15 min) Moderate 02/22/2018 Patient Education: Patient Medication Summary Completed 02/22/2018 Patient Education: Back Pain Completed 02/22/2018 Visit Plan: Diarrhea - improved - pt advised to avoid seeds, nuts, popcorn, or any other food which has been proven to upset the pt's stomach. 12/13/2017 Appointment: Kandi Cabrera WPtel: [facility]4 [facility] (15 min) Moderate 12/13/2017 Patient Education: Patient Medication Summary Completed 12/13/2017 Visit Plan: Diverticulitis - rx for antibiotic sent to pt's pharmacy - pt advised to avoid seeds, nuts, popcorn, or any other food which has been proven to upset the pt's stomach. 11/29/2017 Appointment: Kandi Cabrera WPtel: [facility]5 [facility] (15 min) Moderate 11/29/2017 Patient Education: Patient Medication Summary Completed 11/29/2017 Appointment: Kandi Cabrera WPtel: [address] [place], [place] [phone] (15 min) Moderate 11/24/2017 Visit Plan: Abdominal [...] 10 days 10/27/2017 Appointment: [phone] [facility] (15 min) Moderate 10/27/2017 Patient Education: Patient [...] improving. 07/26/2017 [phone] (30 min) Complex 07/26/2017 Patient Education: Patient Medication Summary Completed 07/26/2017 Care Plan: Iron Pending 07/26/2017 Care Plan: Referral Order SNOMED-CT : [id number] Pending 07/26/2017 Visit Plan: Hypertension - well [...] recommended. 05/26/2017 Appointment: Kandi Cabrera WPtel: [phone] [facility] (15 min) Moderate 05/26/2017 Patient Education: Patient Medication Summary Completed 05/26/2017 Patient Education: Patient Medication Summary Completed 05/19/2017 Care Plan: Iron Pending 05/19/2017 Visit Plan: Dyspnea on Exertion - uncontrolled - I have recommended pt to have Pulmonary function studies as well as a referral back to her Private Branch Exchange Service Advisor - Dr. Hanna - I suspect she [...] cigarettes". 04/11/2017 Appointment: Kandi Cabrera WPtel: [phone] [facility] (15 min) Moderate 04/11/2017 Patient Education: Patient Medication Summary Completed 04/11/2017 Patient Education: Smoking and Tobacco Addiction Completed 04/11/2017 Care Plan: Referral Order SNOMED-CT : [id number] Pending 04/11/2017 Appointment: Kandi Cabrera WPtel: [phone] [facility] (15 min) Moderate 02/14/2017 Appointment: David 02/09/2017 [phone] Patient informed. Completed 02/09/2017 Patient Education: Patient Medication Summary Completed 02/09/2017 Patient Education: Smoking and Tobacco Addiction Completed 02/09/2017 Visit Plan: Tobacco abuse - chronic condition for this patient. Patient has been counseled about need to stop smoking due to the negative health affects. 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 Rx for wellbutrin 75mg 1/2 pill bid. Gait instability - referral to [facility] for gait instability 02/07/2017 Appointment: Kandi Cabrera WPtel: [phone] [facility] (15 min) Moderate 02/07/2017 Patient Education: Patient Medication Summary Completed 02/07/2017 Patient Education: Smoking and Tobacco Addiction Completed 02/07/2017 Care Plan: Referral Order SNOMED-CT : 965829005 Pending 02/07/2017 Visit Plan: Cough - pt [...] becoming uncontrolled. 01/26/2017 Appointment: [phone] [facility] (15 min) Moderate 01/26/2017 Patient Education: [...] week. 10/19/2016 Appointment: Kandi Cabrera WPtel: [phone] [facility] (15 min) Moderate 10/19/2016 Patient Education: Patient Medication Summary Completed 10/19/2016 Patient Education: Smoking and Tobacco Addiction Completed 10/19/2016 Patient Education: Hypertension Completed 10/19/2016 Visit Plan: Atrial Fibrillation - pt on chronic anticoagulation and is not optimally rate controlled. Pt is to see her log roper tomorrow, will discuss with him her plans [...] control. 09/22/2016 Appointment: Kandi Cabrera WPtel: [phone] [facility] (15 min) Moderate 09/22/2016 Patient Education: Patient [...] q 3 months or q 6 m [facility] based on previous levels of control. 08/31/2016 Appointment: Kandi Cabrera WPtel: [address] [place], [place] [phone] (15 min) Moderate 08/31/2016 Patient Education: Patient Medication Summary Completed 08/31/2016 Patient Education: Smoking and Tobacco Addiction Completed 08/31/2016 Patient Education: Hypertension Completed 08/31/2016 Visit Plan: Sacroiliitis -kenalog injection today in the office- tylenol as directed-heat as directed-xray lumbar spine. Pt is to call if the symptoms do not improve or if they worsen. 08/12/2016 Appointment: Janeen Marsh WPtel: [address] [place], [place] [phone] (30 min) Complex 08/12/2016 Patient Education: Patient Medication Summary Completed 08/12/2016 Patient Education: Smoking and Tobacco Addiction Completed 08/12/2016 Appointment: Payton Leon WPtel: [facility]5 [facility] [facility] - Annual Wellness Visit 07/30/2016 Visit [...] to medications. 07/28/2016 Appointment: [facility] [phone] [facility] [place] (15 min) Moderate 07/28/2016 Patient [...] today 01/28/2016 Appointment: Kandi Cabrera WPtel: [phone] [facility] (15 min) Moderate 01/28/2016 Patient Education: Patient [...] activity 07/29/2015 Appointment: [facility] Cab[facility] [phone] [facility] [place] (15 min) Moderate 07/29/2015 Patient [...] of control. A ctinic keratosis - left bahai and left nasal bridge - pt to use efudex on the lesions on the nose and face. 03/31/2015 Appointment: Kandi Cabrera WPtel: [facility] (15 min) Moderate 03/31/2015 Patient Education: [...] D levels. 12/23/2014 Appointment: Kandi Cabrera WPtel: [facility] [place] ([place] New Patient 12/23/2014 Patient Education: Patient Medication Summary Completed 12/23/2014 Patient Education: Hypertension Completed 12/23/2014 Care Plan: Referral Order SNOMED-CT : [id number] Ordered 12/23/2014 Referral: External, Ordering Provider Referral Completed Referral: External, Ordering Provider Referral Appointment Requested Referral: Maggi Reaves Referral Initiated Referral: [phone] [facility] [place] Referral Appointment Requested Referral: External, Ordering [...] well as a referral back to her Private Branch Exchange Service Advisor - Dr. Hanna - I suspect she [...] May 04 pt's has appt with Dr. Hanan Tobaccoism - again discussed the need for [...] pill bid. Gait instability - referral to [facility] for gait instability . Hypertension - well [...] rx for keflex sent to pharmacy [facility] today . Hypertension - well controlled - [...] rx for keflex sent to pharmacy [facility] today . Atrial Fibrillation - pt on chronic anticoagulation and is not optimally rate controlled. Pt is to see her log roper tomorrow, will discuss with him her plans [...] a conversation about surgical intervention with her Private Branch Exchange Service Advisor. start on the synthroid 137mcg daily - [...] improve or if they worsen. PROBIOTIC - [employer], [employer], lactobacilus/acidophilis brand probiotic - these can be [...] levels of control. Actinic keratosis - left bahai and left nasal bridge - pt to [...]
[2018-12-29] MEDS ORDERED: SCOPOLAMINE 1.5 MG (TRANSDERM-SCOP) PATCH TOP SCH (13:45)
[2018-12-29] MEDS ORDERED: morphine (ROXINOL) 10 MG/0.5 ML oral conc 0.5 ML PO PRN (13:45)
[2018-12-29] MEDS ORDERED: morphine INJ 4 MG/ML 1 ML (VIAL/SYRINGE) IV PRN ×2 (13:45)
[2018-12-29] MEDS ORDERED: GLYCOPYRROLATE 0.2 MG/ML (ROBINUL) 2 ML VIAL IV PRN (13:45)
--- NOTE | 2018-12-29 13:45 | NUR ---
patient was suctioned- large amount of secretions returned. After each suctioning- pt would become apnic. Patient sats were in 70's and dropping. no respirations noted. Dr Rivas notified. Patient becoming cyanotic. pulse weak. Patient was pronounced at 1351. RR and HR confirmed absent per this rn and Dr Rivas
--- OUTSIDE RECORDS SUMMARY | 2018-12-29 13:49 | XMS REPORT | CCD ---
Author Author Kandi Cabrera MD, [facility] Address [address] [place] [address] Phone Care Team Providers Care Car Supplier Name Role Phone PP Unavailable CCM Unavailable Summary Purpose Interface Exchange Insurance Providers Payer name Policy type / Coverage type Covered republican ID Effective Begin Date Effective End Date [facility] Commercial Insurance [id number] Unknown WPS Medicare Part B Commercial Insurance [id number] 2017 Unknown Family history Father Diagnosis Age [...] Unknown Retired 12/23/[address]: 81301032 Current every day smoker 12/23/2014 Number of years using tobacco Unknown > 50 trying to quit 12/23/2014 Number of cigarettes/day Unknown 10 (Half a pack) 12/23/[address]: 934091133 Never drinks alcohol 12/23/2014 Allergies, Adverse Reactions, Alerts Substance Reaction Codes Entered Date Inactivated Date Status ciprofloxacin RxNorm: 71060 05/05/2018 No Inactive Date Active SULFA(SULFONAMIDE ANTIBIOTICS) [...] Instructions perphenazine-amitriptyline 2 mg-10 mg tablet RxNorm: 920071 2 Tablet(s) PO daily 08/04/2018 10/27/2019 Active perphenazine-amitriptyline 2 mg-10 mg tablet RxNorm: 618455 2 Tablet(s) PO daily 08/04/2018 08/03/2018 Inactive waiting on mail order perphenazine-amitriptyline 2 mg-10 mg tablet RxNorm: 266941 2 Tablet(s) PO daily 08/04/2018 08/03/2018 Inactive Tricor 145 mg tablet RxNorm: 216580 1 Tablet(s) PO daily 07/17/2018 10/09/2019 Active pantoprazole 40 mg tablet,delayed release RxNorm: 259766 1 Tablet(s) PO daily 07/17/2018 10/09/2019 Active hydroxyzine HCl 25 mg tablet RxNorm: 504172 2 Tablet(s) PO QHS may increase to two pills at hs if allergic reactions are occuring 07/17/2018 11/13/2018 Active Synthroid 100 mcg tablet RxNorm: 745790 1 Tablet(s) PO daily 06/05/2018 08/28/2019 Active hydroxyzine HCl 25 mg tablet RxNorm: 609655 1 Tablet(s) PO QHS may increase to two pills at hs if allergic reactions are occuring 06/05/2018 07/16/2018 Inactive Lasix 20 mg tablet RxNorm: 858873 1 Tablet(s) PO daily as needed not more than one time a day 05/19/2018 09/15/2018 Active prednisone 20 mg tablet RxNorm: 982078 2 Tablet(s) PO daily 02/22/2018 02/26/2018 Inactive Cipro 500 mg tablet RxNorm: 925583 1 Tablet(s) PO BID 02/22/2018 02/28/2018 Inactive potassium chloride ER 10 mEq tablet,extended release RxNorm: 320432 1 Tablet(s) PO UD take on days that you take a lasix pill 02/13/2018 02/07/2019 Active Synthroid 100 mcg tablet RxNorm: 419941 1 Tablet(s) PO daily 02/13/2018 06/04/2018 Inactive simvastatin 20 mg tablet RxNorm: 445737 1 Tablet(s) PO QHS 01/13/2018 01/07/2019 Active metronidazole 500 mg tablet RxNorm: 661017 1 Tablet(s) PO TID 11/29/2017 12/08/2017 Inactive alendronate 70 mg tablet RxNorm: 497698 1 Tablet(s) PO weekly 11/29/2017 03/05/2018 Inactive omeprazole 40 mg capsule,delayed release RxNorm: 145840 1 Capsule(s) PO daily 11/11/2017 07/16/2018 Inactive Flagyl 500 mg tablet RxNorm: 757173 1 Tablet(s) PO TID 10/27/2017 11/05/2017 Inactive sucralfate 1 gram tablet RxNorm: 865369 1 Tablet(s) PO TID 07/26/2017 07/20/2018 Inactive fluticasone 50 mcg/actuation nasal spray,suspension RxNorm: 1525668 1 [place] NASAL daily 07/26/2017 No Stop Date Active Protonix 40 mg tablet,delayed release RxNorm: 990407 1 Tablet(s) PO daily 07/26/2017 10/23/2017 Inactive Tricor 145 mg tablet RxNorm: 831263 1 Tablet(s) PO daily 05/26/2017 05/20/2018 Inactive perphenazine-amitriptyline 2 mg-10 mg tablet RxNorm: 103748 2 Tablet(s) PO daily 05/26/2017 05/20/2018 Inactive bupropion HCl 75 mg tablet RxNorm: 309608 1/2 Tablet(s) PO BID 02/07/2017 05/07/2017 Inactive Eliquis 5 mg tablet RxNorm: 4300240 1 Tablet(s) PO BID 01/26/2017 01/20/2018 Inactive sotalol 80 mg tablet RxNorm: 2114949 1 Tablet(s) PO BID 01/26/2017 04/20/2018 Inactive potassium chloride ER 10 mEq tablet,extended release RxNorm: 990264 1 Tablet(s) PO UD take on days that you take a lasix pill 01/26/2017 01/20/2018 Inactive Synthroid 100 mcg tablet RxNorm: 406555 1 Tablet(s) PO daily 01/26/2017 02/12/2018 Inactive diltiazem ER 240 mg capsule,extended release RxNorm: 101069 1 Capsule(s) PO BID 01/26/2017 05/03/2017 Inactive Lasix 20 mg tablet RxNorm: 922081 1 Tablet(s) PO daily as needed not more than one time a day 01/26/2017 05/25/2017 Inactive simvastatin 20 mg tablet RxNorm: 848227 1 Tablet(s) PO QHS 12/21/2016 12/15/2017 Inactive alendronate 70 mg tablet RxNorm: 031923 1 Tablet(s) PO weekly 12/21/2016 11/28/2017 Inactive omeprazole 40 mg capsule,delayed release RxNorm: 496848 1 Capsule(s) PO daily 10/19/2016 10/12/2017 Inactive metoprolol succinate ER 100 mg tablet,extended release 24 hr RxNorm: 489511 1.5 Tablet(s) PO daily 09/17/2016 10/18/2016 Inactive Dosage increased by Dr. Vazquez potassium chloride ER 10 mEq tablet,extended release RxNorm: 451580 1 Tablet(s) PO UD take on days that you take a lasix pill 08/31/2016 12/28/2016 Inactive Lasix 20 mg tablet RxNorm: 880758 1 Tablet(s) PO daily as needed not more than one time a day 08/31/2016 12/28/2016 Inactive Kenalog 40 mg/mL suspension for injection RxNorm: 2070871 1 Milliliter(s) Inj 08/12/2016 08/12/2016 Inactive Tricor 145 mg tablet RxNorm: 519317 1 Tablet(s) PO daily 05/21/2016 05/15/2017 Inactive atenolol 25 mg tablet RxNorm: 725173 1 Tablet(s) PO daily 05/21/2016 08/30/2016 Inactive sucralfate 1 gram tablet RxNorm: 588170 1 Tablet(s) PO TID 05/21/2016 05/15/2017 Inactive enalapril maleate 10 mg tablet RxNorm: 462788 1 Tablet(s) PO daily 04/26/2016 08/30/2016 Inactive perphenazine-amitriptyline 2 mg-10 mg tablet RxNorm: 407639 2 Tablet(s) PO daily 04/26/2016 04/20/2017 Inactive fluticasone 50 mcg/actuation nasal spray,suspension RxNorm: 7089440 1 [place] NASAL daily 04/26/2016 07/25/2017 Inactive Synthroid 100 mcg tablet RxNorm: 969750 1 Tablet(s) PO daily 02/09/2016 01/25/2017 Inactive Synthroid 100 mcg tablet RxNorm: 309260 1 Tablet(s) PO daily 02/09/2016 02/08/2016 Inactive Keflex 500 mg capsule RxNorm: 612280 1 Capsule(s) PO TID 01/28/2016 02/01/2016 Inactive hydrochlorothiazide 25 mg tablet RxNorm: 375587 TAKE 1 TABLET DAILY 01/07/2016 08/30/2016 Inactive enalapril maleate 10 mg tablet RxNorm: 758958 1 Tablet(s) PO daily 12/26/2015 04/25/2016 Inactive hydrochlorothiazide 25 mg tablet RxNorm: 700955 1 Tablet(s) PO daily 12/08/2015 08/30/2016 Inactive omeprazole 40 mg capsule,delayed release RxNorm: 495818 1 Capsule(s) PO daily 12/08/2015 10/18/2016 Inactive simvastatin 20 mg tablet RxNorm: 054453 1 Tablet(s) PO QHS 11/14/2015 11/07/2016 Inactive alendronate 70 mg tablet RxNorm: 315064 1 Tablet(s) PO weekly 10/31/2015 10/24/2016 Inactive Synthroid 112 mcg tablet RxNorm: 231548 1 Tablet(s) PO daily 07/16/2015 02/08/2016 Inactive sucralfate 1 gram tablet RxNorm: 500072 1 Tablet(s) PO TID 06/17/2015 05/20/2016 Inactive perphenazine-amitriptyline 2 mg-10 mg tablet RxNorm: 826997 2 Tablet(s) PO daily 06/17/2015 04/25/2016 Inactive fluticasone 50 mcg/actuation nasal spray,suspension RxNorm: 5462794 1 [place] NASAL daily 06/17/2015 04/25/2016 Inactive fluorouracil 5 % topical cream RxNorm: 348761 APPLY 1 APPLICATION TOPICALLY TWO TIMES A DAY 06/16/2015 06/25/2015 Inactive fluticasone 50 mcg/actuation nasal spray,suspension RxNorm: 982450 1 [place] NASAL daily 06/12/2015 06/16/2015 Inactive atenolol 25 mg tablet RxNorm: 928534 1 Tablet(s) PO daily 05/14/2015 05/07/2016 Inactive Tricor 145 mg tablet RxNorm: 538801 1 Tablet(s) PO daily 04/23/2015 04/16/2016 Inactive Synthroid 125 mcg tablet RxNorm: 262122 1 Tablet(s) PO daily 03/31/2015 07/15/2015 Inactive fluorouracil 5 % topical cream RxNorm: 383388 1 Application TOP BID 03/31/2015 04/09/2015 Inactive Synthroid 137 mcg tablet RxNorm: 908276 1 Tablet(s) PO daily 12/25/2014 12/24/2014 Inactive Synthroid 137 mcg tablet RxNorm: 868724 1 Tablet(s) PO daily 12/25/2014 03/30/2015 Inactive Voltaren 1 % topical gel RxNorm: 014596 4 Gram(s) TOP QID 12/23/2014 04/21/2015 Inactive alendronate 70 mg tablet RxNorm: 248734 1 Tablet(s) PO weekly 12/23/2014 12/22/2014 Inactive alendronate 70 mg tablet RxNorm: 620518 1 Tablet(s) PO weekly 12/23/2014 10/30/2015 Inactive Fosamax 70 mg tablet RxNorm: 110896 1 Tablet(s) PO weekly QW 12/23/2014 01/27/2016 Inactive omeprazole 40 mg capsule,delayed release RxNorm: 998958 1 Capsule(s) PO daily 12/18/2014 12/07/2015 Inactive omeprazole 40 mg capsule,delayed release RxNorm: 352343 1 Capsule(s) PO daily 12/18/2014 12/17/2014 Inactive hydrochlorothiazide 25 mg tablet RxNorm: 881470 1 Tablet(s) PO daily 12/18/2014 12/17/2014 Inactive hydrochlorothiazide 25 mg tablet RxNorm: 367238 1 Tablet(s) PO daily 12/18/2014 12/07/2015 Inactive L-Lysine 1,000 mg tablet RxNorm: 607115 1 Tablet(s) PO daily No Start Date Active folic acid 400 mcg tablet RxNorm: 682617 1 Tablet(s) PO daily No Start Date Active B12 1000 mcg RxNorm: 1/2 Tablet(s) PO daily No Start Date Active Vitamin D3 1,000 unit chewable tablet RxNorm: 898322 1 Tablet(s) PO daily No Start Date Active diltiazem 120 mg tablet RxNorm: 285424 1 Tablet(s) PO daily No Start Date Active metoprolol succinate ER 100 mg tablet,extended release 24 hr RxNorm: 156245 1 Tablet(s) PO daily No Start Date 09/16/2016 Inactive enalapril maleate 10 mg tablet RxNorm: 751580 1 Tablet(s) PO daily No Start Date 12/25/2015 Inactive perphenazine-amitriptyline 2 mg-10 mg tablet RxNorm: 718483 2 Tablet(s) PO daily No Start Date 06/16/2015 Inactive sucralfate 1 gram tablet RxNorm: 940678 1 Tablet(s) PO TID No Start Date 06/16/2015 Inactive hydrochlorothiazide 25 mg tablet RxNorm: 595635 1 Tablet(s) PO daily No Start Date 08/30/2016 Inactive vitamin E (dl, acetate) 400 unit capsule RxNorm: 239044 1 Capsule(s) PO daily No Start Date 03/05/2018 Inactive sotalol 80 mg tablet RxNorm: 0327269 1 Tablet(s) PO BID No Start Date 01/25/2017 Inactive Synthroid 150 mcg tablet RxNorm: 560032 1 Tablet(s) PO daily No Start Date 12/24/2014 Inactive simvastatin 20 mg tablet RxNorm: 249893 1 Tablet(s) PO daily No Start Date 11/13/2015 Inactive Vitamin C RxNorm: PO 1000mg qd No Start Date 03/05/2018 Inactive Fosamax 70 mg tablet RxNorm: 267050 1 Tablet(s) PO weekly No Start Date 12/22/2014 Inactive Tricor 145 mg tablet RxNorm: 493957 1 Tablet(s) PO daily No Start Date 04/22/2015 Inactive diltiazem ER 180 mg capsule,24 hr,extended release RxNorm: 684156 1 Capsule(s) PO daily No Start Date 03/05/2018 Inactive diltiazem ER 240 mg capsule,extended release RxNorm: 112106 1 Capsule(s) PO BID No Start Date 01/25/2017 Inactive Eliquis 5 mg tablet RxNorm: 2649232 1 Tablet(s) PO BID No Start Date 01/25/2017 Inactive fluticasone 50 mcg/actuation nasal spray,suspension RxNorm: 639335 1 [place] NASAL daily No Start Date 06/11/2015 Inactive atenolol 25 mg tablet RxNorm: 514322 1 Tablet(s) PO daily No Start Date 05/13/2015 Inactive Medication Administered Medication Codes Instructions Start Date Status Kenalog 40 mg/mL suspension for injection RxNorm: 4693663 1Milliliter 08/12/2016 No longer Active Immunizations Vaccine [...] Result Date Cbc With Differential Ord2 WBC 5.95 K/ul 08/14/2018 Cbc With Differential Ord2 RBC 4.77 M/ul 08/14/2018 Cbc With Differential Ord2 HGB 12.5 g/dl 08/14/2018 Cbc With Differential Ord2 HCT 40.3 % 08/14/2018 Cbc With Differential Ord2 Neut% 73.0 % 08/14/2018 Cbc With Differential Ord2 MCV 84.5 fl 08/14/2018 Cbc With Differential Ord2 Lymph% 15.6 % 08/14/2018 Cbc With Differential Ord2 MCH 26.2 pg 08/14/2018 Cbc With Differential Ord2 [place]% 9.1 % 08/14/2018 Cbc With Differential Ord2 MCHC 31.0 pg 08/14/2018 Cbc With Differential Ord2 Eos% 1.8 % 08/14/2018 Cbc With Differential Ord2 PLT 293 K/ul 08/14/2018 Cbc With Differential Ord2 Baso% 0.5 % 08/14/2018 Cbc With Differential Ord2 Neut ABS# 4.34 K/ul 08/14/2018 Cbc With Differential Ord2 Lymph ABS# 0.93 K/ul 08/14/2018 Cbc With Differential Ord2 [place] ABS# 0.5 K/ul 08/14/2018 Cbc With Differential Ord2 Eos ABS# 0.1 K/ul 08/14/2018 Cbc With Differential Ord2 Baso ABS# 0.0 K/ul 08/14/2018 Tibc Ord40 Iron 14 ug/dl 07/13/2018 [...] 24.9 pg 06/21/2018 Cbc With Differential Ord2 [place]% 15.0 % 06/21/2018 Cbc With Differential Ord2 [...] 1.35 K/ul 06/21/2018 Cbc With Differential Ord2 [place] ABS# 0.9 K/ul 06/21/2018 Cbc With Differential [...] 24.9 pg 06/01/2018 Cbc With Differential Ord2 [place]% 12.8 % 06/01/2018 Cbc With Differential Ord2 [...] 0.81 K/ul 06/01/2018 Cbc With Differential Ord2 [place] ABS# 0.7 K/ul 06/01/2018 Cbc With Differential [...] 29.9 pg 03/17/2018 Cbc With Differential Ord2 [place]% 13.3 % 03/17/2018 Cbc With Differential Ord2 [...] 0.90 K/ul 03/17/2018 Cbc With Differential Ord2 [place] ABS# 0.8 K/ul 03/17/2018 Cbc With Differential [...] 30.2 pg 02/22/2018 Cbc With Differential Ord2 [place]% 11.5 % 02/22/2018 Cbc With Differential Ord2 [...] 0.86 K/ul 02/22/2018 Cbc With Differential Ord2 [place] ABS# 0.7 K/ul 02/22/2018 Cbc With Differential Ord2 Eos ABS# 0.2 K/ul 02/22/2018 Cbc With Differential Ord2 Baso ABS# 0.1 K/ul 02/22/2018 Tsh Ord6 TSH (3rd IS) 0.66 uIU/mL 02/22/2018 Free T4 Lav465 FREE T4 1.22 ng/dL 02/22/2018 Comp Metabolic Sra713 NA 136 mEq/L 02/22/2018 Comp Metabolic Sxv744 K 4.4 mEq/L 02/22/2018 Comp Metabolic Cpo159 CL 102 mEq/L 02/22/2018 Comp Metabolic Fvy346 CO2 23.0 mEq/L 02/22/2018 Comp Metabolic Dpg614 ANION GAP 15 02/22/2018 Comp Metabolic Ffg525 GLUCOSE 94 mg/dL 02/22/2018 Comp Metabolic Wjs731 Creat 1.2 mg/dL 02/22/2018 Comp Metabolic Caz563 eGFR 46 ml/min/1.73m2 02/22/2018 Comp Metabolic Eqx223 BUN 31 mg/dL 02/22/2018 Comp Metabolic Lps191 B/C Ratio 25.8 Ratio 02/22/2018 Comp Metabolic Lce366 CALCIUM 9.2 mg/dL 02/22/2018 Comp Metabolic Tnp569 ALK PHOS 34 U/L 02/22/2018 Comp Metabolic Fbt833 AST(SGOT) 18 U/L 02/22/2018 Comp Metabolic Ipx526 ALT(SGPT) 8 U/L 02/22/2018 Comp Metabolic Uvj769 BILI T 0.4 mg/dL 02/22/2018 Comp Metabolic Obu996 ALBUMIN 3.6 g/dL 02/22/2018 Comp Metabolic Ykv688 TPRO 6.2 g/dL 02/22/2018 Comp Metabolic Oat327 GLOB 2.6 g/dL 02/22/2018 Comp Metabolic Cqo760 A/G Ratio 1.4 Ratio 02/22/2018 Comp Metabolic Thx826 Osmo 278 mOsmo 02/22/2018 Free T4 Wkp884 FREE T4 1.11 ng/dL 10/27/2017 Lipid Ord30 [...] 30.7 pg 10/27/2017 Cbc With Differential Ord2 [place]% 11.3 % 10/27/2017 Cbc With Differential Ord2 [...] 1.16 K/ul 10/27/2017 Cbc With Differential Ord2 [place] ABS# 0.6 K/ul 10/27/2017 Cbc With Differential Ord2 Eos ABS# 0.2 K/ul 10/27/2017 Cbc With Differential Ord2 Baso ABS# 0.0 K/ul 10/27/2017 Comp Metabolic Oqp758 NA 135 mEq/L 10/27/2017 Comp Metabolic Lcj669 K 4.7 mEq/L 10/27/2017 Comp Metabolic Xbz508 CL 101 mEq/L 10/27/2017 Comp Metabolic Nnp429 CO2 23.0 mEq/L 10/27/2017 Comp Metabolic Fpa497 ANION GAP 16 10/27/2017 Comp Metabolic Enj828 GLUCOSE 84 mg/dL 10/27/2017 Comp Metabolic Lel116 Creat 1.2 mg/dL 10/27/2017 Comp Metabolic Ymy450 eGFR 46 ml/min/1.73m2 10/27/2017 Comp Metabolic Tsm183 BUN 30 mg/dL 10/27/2017 Comp Metabolic Rdz729 B/C Ratio 25.2 Ratio 10/27/2017 Comp Metabolic Xoz167 CALCIUM 9.4 mg/dL 10/27/2017 Comp Metabolic Jwv348 ALK PHOS 30 U/L 10/27/2017 Comp Metabolic Fwd216 AST(SGOT) 25 U/L 10/27/2017 Comp Metabolic Otn893 ALT(SGPT) 12 U/L 10/27/2017 Comp Metabolic Nfs063 BILI T 0.5 mg/dL 10/27/2017 Comp Metabolic Tsn250 ALBUMIN 3.7 g/dL 10/27/2017 Comp Metabolic Uef865 TPRO 6.5 g/dL 10/27/2017 Comp Metabolic Ykm564 GLOB 2.8 g/dL 10/27/2017 Comp Metabolic Jci524 A/G Ratio 1.3 Ratio 10/27/2017 Comp Metabolic Ztp334 Osmo 275 mOsmo 10/27/2017 Hgb & Hct Ord65 HGB 12.2 g/dl 07/29/2017 Hgb & Hct Ord65 HCT 38.8 % 07/29/2017 Tibc Ord40 Iron 79 ug/dl 07/26/2017 Tibc Ord40 UIBC 380 ug/dL 07/26/2017 Tibc Ord40 TIBC 459 ug/dL 07/26/2017 Tibc Ord40 Fe-%Sat 17.2 % 07/26/2017 Tsh Ord6 TSH (3rd IS) 0.46 uIU/mL 07/26/2017 Ferritin Ord22 FERRITIN 83.6 ng/mL 07/26/2017 Free T4 Cxp443 FREE T4 1.00 ng/dL 07/26/2017 Tibc Ord40 [...] 31.0 pg 08/02/2016 Cbc With Differential Ord2 [place]% 9.4 % 08/02/2016 Cbc With Differential Ord2 [...] 1.44 K/ul 08/02/2016 Cbc With Differential Ord2 [place] ABS# 0.7 K/ul 08/02/2016 Cbc With Differential Ord2 Eos ABS# 0.3 K/ul 08/02/2016 Cbc With Differential Ord2 Baso ABS# 0.1 K/ul 08/02/2016 Lipid Ord30 CHOL 142 mg/dL 08/02/2016 Lipid Ord30 HDL 40.0 mg/dl 08/02/2016 Lipid Ord30 TRIG 169 mg/dL 08/02/2016 Lipid Ord30 LDL 68 mg/dL 08/02/2016 Lipid Ord30 C/HDL 3.6 Ratio 08/02/2016 Comp Metabolic Qvv173 NA 139 mEq/L 08/02/2016 Comp Metabolic Igy223 K 5.2 mEq/L 08/02/2016 Comp Metabolic Obt732 CL 108 mEq/L 08/02/2016 Comp Metabolic Kai619 CO2 22.0 mEq/L 08/02/2016 Comp Metabolic Bgy041 ANION GAP 14 08/02/2016 Comp Metabolic Yhh320 GLUCOSE 103 mg/dL 08/02/2016 Comp Metabolic Lop569 Creat 1.1 mg/dL 08/02/2016 Comp Metabolic Wdo436 eGFR 54 ml/min/1.73m2 08/02/2016 Comp Metabolic Unc365 BUN 26 mg/dL 08/02/2016 Comp Metabolic Oxg405 B/C Ratio 24.8 Ratio 08/02/2016 Comp Metabolic Ppw180 CALCIUM 9.4 mg/dL 08/02/2016 Comp Metabolic Aks820 ALK PHOS 41 U/L 08/02/2016 Comp Metabolic Kvd278 AST(SGOT) 18 U/L 08/02/2016 Comp Metabolic Oiu488 ALT(SGPT) 10 U/L 08/02/2016 Comp Metabolic Neg837 BILI T 0.3 mg/dL 08/02/2016 Comp Metabolic Cof279 ALBUMIN 3.7 g/dL 08/02/2016 Comp Metabolic Fas681 TPRO 6.5 g/dL 08/02/2016 Comp Metabolic Hop633 GLOB 2.8 g/dL 08/02/2016 Comp Metabolic Nxi930 A/G Ratio 1.3 Ratio 08/02/2016 Comp Metabolic Vpu984 Osmo 283 mOsmo 08/02/2016 Free T4 Xpt408 FREE T4 1.08 ng/dL 08/02/2016 Tsh Ord6 hTSH II 0.35 uIU/mL 05/13/2016 Free T4 Nnv782 FREE T4 0.78 ng/dL 05/13/2016 Free T4 Oja190 FREE T4 1.13 ng/dL 01/28/2016 Tsh Ord6 [...] 30.2 pg 07/14/2015 Cbc With Differential Ord2 [place]% 9.1 % 07/14/2015 Cbc With Differential Ord2 [...] 1.80 K/ul 07/14/2015 Cbc With Differential Ord2 [place] ABS# 0.7 K/ul 07/14/2015 Cbc With Differential [...] Ord30 C/HDL 3.0 Ratio 07/14/2015 Comp Metabolic Aid876 NA 136 mEq/L 07/14/2015 Comp Metabolic Zvm126 K 4.4 mEq/L 07/14/2015 Comp Metabolic Vaa321 CL 101 mEq/L 07/14/2015 Comp Metabolic Eda312 CO2 27.0 mEq/L 07/14/2015 Comp Metabolic Kiv372 ANION GAP 12 07/14/2015 Comp Metabolic Fkc807 GLUCOSE 97 mg/dL 07/14/2015 Comp Metabolic Pzk249 Creat 1.0 mg/dL 07/14/2015 Comp Metabolic Qbs213 eGFR 56 ml/min/1.73m2 07/14/2015 Comp Metabolic Gll460 BUN 27 mg/dL 07/14/2015 Comp Metabolic Owy344 B/C Ratio 26.7 Ratio 07/14/2015 Comp Metabolic Yeb035 CALCIUM 9.3 mg/dL 07/14/2015 Comp Metabolic Xaq042 ALK PHOS 33 U/L 07/14/2015 Comp Metabolic Qcs541 AST(SGOT) 14 U/L 07/14/2015 Comp Metabolic Gvg575 ALT(SGPT) 8 U/L 07/14/2015 Comp Metabolic Yay102 BILI T 0.4 mg/dL 07/14/2015 Comp Metabolic Lhu333 ALBUMIN 3.8 g/dL 07/14/2015 Comp Metabolic Vzk966 TPRO 6.6 g/dL 07/14/2015 Comp Metabolic Wyf169 GLOB 2.8 g/dL 07/14/2015 Comp Metabolic Bhq669 A/G Ratio 1.4 Ratio 07/14/2015 Comp Metabolic Uld663 Osmo 277 mOsmo 07/14/2015 Tsh Ord6 hTSH II 0.23 uIU/mL 07/14/2015 Free T4 Een734 FREE T4 1.19 ng/dL 07/14/2015 Cbc With [...] Ord30 C/HDL 3.4 Ratio 03/26/2015 Comp Metabolic Wmh471 NA 135 mEq/L 03/26/2015 Comp Metabolic Vza598 K 5.0 mEq/L 03/26/2015 Comp Metabolic Iqe410 CL 99 mEq/L 03/26/2015 Comp Metabolic Ipd724 CO2 27.0 mEq/L 03/26/2015 Comp Metabolic Wxk897 ANION GAP 14 03/26/2015 Comp Metabolic Qls045 GLUCOSE 88 mg/dL 03/26/2015 Comp Metabolic Mar718 Creat 1.1 mg/dL 03/26/2015 Comp Metabolic Olu920 eGFR 50 ml/min/1.73m2 03/26/2015 Comp Metabolic Rdp677 BUN 27 mg/dL 03/26/2015 Comp Metabolic Rfe523 B/C Ratio 24.1 Ratio 03/26/2015 Comp Metabolic Asg409 CALCIUM 9.9 mg/dL 03/26/2015 Comp Metabolic Cgr906 ALK PHOS 30 U/L 03/26/2015 Comp Metabolic Ivt068 AST(SGOT) 16 U/L 03/26/2015 Comp Metabolic Pha104 ALT(SGPT) 8 U/L 03/26/2015 Comp Metabolic Jsc332 BILI T 0.4 mg/dL 03/26/2015 Comp Metabolic Ucf144 ALBUMIN 3.9 g/dL 03/26/2015 Comp Metabolic Rsg185 TPRO 6.4 g/dL 03/26/2015 Comp Metabolic Fof704 GLOB 2.5 g/dL 03/26/2015 Comp Metabolic Tjc722 A/G Ratio 1.6 Ratio 03/26/2015 Comp Metabolic Iuz518 Osmo 275 mOsmo 03/26/2015 Free T4 Xat872 FREE T4 1.22 ng/dL 03/26/2015 Tsh Ord6 hTSH II 0.20 uIU/mL 03/26/2015 Vitamin D 25 Oh Vyu3382 VITAMIN D, 25 HYDROXY 51.09 ng/mL 12/25/2014 Tsh Ord6 hTSH II 0.09 uIU/mL 12/23/2014 Free T4 Isl961 FREE T4 1.30 ng/dL 12/23/2014 Comp Metabolic Poz436 NA 135 mEq/L 12/23/2014 Comp Metabolic Wdh536 K 4.7 mEq/L 12/23/2014 Comp Metabolic Ygb554 CL 100 mEq/L 12/23/2014 Comp Metabolic Psu471 CO2 23.0 mEq/L 12/23/2014 Comp Metabolic Yox644 ANION GAP 17 12/23/2014 Comp Metabolic Tiy904 GLUCOSE 93 mg/dL 12/23/2014 Comp Metabolic Wdr911 Creat 1.1 mg/dL 12/23/2014 Comp Metabolic Poq781 eGFR 53 ml/min/1.73m2 12/23/2014 Comp Metabolic Krh615 BUN 26 mg/dL 12/23/2014 Comp Metabolic Hek717 B/C Ratio 24.3 Ratio 12/23/2014 Comp Metabolic Zgr592 CALCIUM 9.5 mg/dL 12/23/2014 Comp Metabolic Lvb760 ALK PHOS 27 U/L 12/23/2014 Comp Metabolic Thw440 AST(SGOT) 16 U/L 12/23/2014 Comp Metabolic Hsc189 ALT(SGPT) 8 U/L 12/23/2014 Comp Metabolic Hsd943 BILI T 0.4 mg/dL 12/23/2014 Comp Metabolic Vfp750 ALBUMIN 3.9 g/dL 12/23/2014 Comp Metabolic Ncc228 TPRO 6.7 g/dL 12/23/2014 Comp Metabolic Idu764 GLOB 2.8 g/dL 12/23/2014 Comp Metabolic Man996 A/G Ratio 1.4 Ratio 12/23/2014 Comp Metabolic Kcw389 Osmo 275 mOsmo 12/23/2014 Review of Systems [...] General 1995 Ears/Nose/Throat lips/teeth/gingiva Overall: benign lips 01/26/2017 None [...] inspection of skin Consistency: thick 03/31/2015 left buddhism and left nasal bridge - actinic keratosis [...] SUBSEQ VISIT CPT- 4: G0439 05/05/2018 TOBACCO-USE [employer] 3-[address]: 683113172 CPT-4: G0436 04/11/2017 PNEUMOCOCCAL VACC [address]: 00028700 CPT-4: 97192 02/09/2017 FLU VACC PRSV FREE INC ANTIG CPT-4: 63355 02/09/2017 ADMIN INFLUENZA VIRUS VAC CPT-4: G0008 02/09/2017 ADMIN PNEUMOCOCCAL VACCINE SNOMED CT: 59742932 CPT-4: G0009 02/09/2017 TOBACCO-USE [employer] 3-[address]: 570476486 CPT-4: G0436 02/07/2017 TOBACCO-USE [employer]IST 3-[address]: 403332833 CPT-4: G0436 10/19/2016 TOBACCO-USE [employer]IST 3-[address]: 154540980 CPT-4: G0436 08/31/2016 TRIAMCINOLONE ACET INJ NOS CPT-4: J3301 08/12/2016 TOBACCO-USE [employer] 3-[address]: 270695677 CPT-4: G0436 07/28/2016 ADMIN INFLUENZA VIRUS VAC CPT-4: G0008 01/28/2016 FLU VACC 4 JULISA 3 YRS PLUS IM SNOMED CT: 35937357 CPT-4: 32237 01/28/2016 TOBACCO-USE [employer] 3-[address]: 458335492 CPT-4: G0436 07/29/2015 Vital Signs Date Vital 07/17/2018 Blood Pressure 1: 126/54 Code: 8480-6 BMI: 24.4 Code: 13554-5 Heart Rate 1: 70 bpm Height: 5'4" SpO2: 98% Weight: 142 lbs 06/05/2018 Blood Pressure 1: 122/60 Code: 8480-6 BMI: 25.4 Code: 19449-3 Heart Rate 1: 74 bpm Height: 5'4" SpO2: 98% Weight: 148 lbs 05/05/2018 Blood Pressure 1: 130/64 Code: 8480-6 BMI: 25.1 Code: 41368-8 Heart Rate 1: 72 bpm Height: 5'4" SpO2: 97% Weight: 146 lbs 04/03/2018 Blood Pressure 1: 142/80 Code: 8480-6 BMI: 25.2 Code: 09912-8 Heart Rate 1: 99 bpm Height: 5'4" SpO2: 97% Weight: 147 lbs 03/06/2018 Blood Pressure 1: 140/80 Code: 8480-6 BMI: 26.1 Code: 25638-7 Heart Rate 1: 71 bpm Height: 5'4" SpO2: 98% Weight: 152 lbs 02/22/2018 Blood Pressure 1: 146/68 Code: 8480-6 BMI: 26.6 Code: 72664-7 Heart Rate 1: 88 bpm Height: 5'4" SpO2: 97% Weight: 155 lbs 12/13/2017 Blood Pressure 1: 132/68 Code: 8480-6 BMI: 26.6 Code: 41661-3 Heart Rate 1: 72 bpm Height: 5'4" SpO2: 94% Weight: 154 lbs 14 oz 11/29/2017 Blood Pressure 1: 130/64 Code: 8480-6 BMI: 26.1 Code: 68206-0 Heart Rate 1: 81 bpm Height: 5'4" SpO2: 94% Weight: 152 lbs 10/27/2017 Blood Pressure 1: 120/62 Code: 8480-6 BMI: 25.9 Code: 73723-1 Heart Rate 1: 70 bpm Height: 5'4" SpO2: 96% Weight: 151 lbs 07/26/2017 Blood Pressure 1: 146/70 Code: 8480-6 BMI: 26.3 Code: 94070-9 Heart Rate 1: 69 bpm Height: 5'4" SpO2: 98% Weight: 153 lbs 05/26/2017 Blood Pressure 1: 142/76 Code: 8480-6 BMI: 26.4 Code: 72699-0 Heart Rate 1: 59 bpm Height: 5'4" SpO2: 99% Weight: 154 lbs 04/11/2017 Blood Pressure 1: 134/64 Code: 8480-6 BMI: 26.6 Code: 15234-1 Heart Rate 1: 65 bpm Height: 5'4" SpO2: 98% Weight: 155 lbs 02/07/2017 Blood Pressure 1: 120/72 Code: 8480-6 Heart Rate 1: 72 bpm Height: 5'4" SpO2: 96% Weight: 01/26/2017 Blood Pressure 1: 146/68 Code: 8480-6 BMI: 26.4 Code: 44204-8 Heart Rate 1: 96 bpm Height: 5'4" SpO2: 97% Weight: 154 lbs 10/19/2016 Blood Pressure 1: 144/76 Code: 8480-6 BMI: 25.8 Code: 37587-8 Heart Rate 1: 68 bpm Height: 5'4" SpO2: 96% Weight: 150 lbs 8 oz 09/22/2016 Blood Pressure 1: 122/80 Code: 8480-6 BMI: 26.1 Code: 40673-7 Heart Rate 1: 111 bpm Height: 5'4" SpO2: 97% Weight: 152 lbs 08/31/2016 Blood Pressure 1: 152/82 Code: 8480-6 BMI: 27.1 Code: 23046-7 Heart Rate 1: 118 bpm Height: 5'4" SpO2: 96% Weight: 158 lbs 08/12/2016 Blood Pressure 1: 146/78 Code: 8480-6 BMI: 26.9 Code: 37539-6 Heart Rate 1: 68 bpm Height: 5'4" SpO2: 97% Weight: 157 lbs 07/28/2016 Blood Pressure 1: 128/64 Code: 8480-6 BMI: 27.1 Code: 18278-9 Heart Rate 1: 63 bpm Height: 5'4" SpO2: 97% Weight: 158 lbs 01/28/2016 Blood Pressure 1: 130/70 Code: 8480-6 BMI: 27.3 Code: 79069-3 Heart Rate 1: 60 bpm Height: 5'4" SpO2: 95% Weight: 159 lbs 07/29/2015 Blood Pressure 1: 136/80 Code: 8480-6 BMI: 28.1 Code: 60240-8 Heart Rate 1: 68 bpm Height: 5'4" SpO2: 96% Weight: 163 lbs 8 oz 03/31/2015 Blood Pressure 1: 138/88 Code: 8480-6 BMI: 27.5 Code: 08762-7 Heart Rate 1: 72 bpm Height: 5'4" Weight: 160 lbs 12/23/2014 Blood Pressure 1: 138/68 Code: 8480-6 BMI: 27.1 Code: 86771-0 Heart Rate 1: 63 bpm Height: 5'4" [...] data Encounters Encounter Performer Location Codes Date ([id number]) [id number] EST. PATIENT, LEVEL IV Diagnosis: Essential (primary) hypertension[ICD10: I10] Diagnosis: Other iron deficiency anemias[ICD10: D50.8] Diagnosis: Tobacco abuse counseling[ICD10: Z71.6] Diagnosis: Chronic atrial fibrillation[ICD10: I48.2] [facility] CPT-4: 03301 07/17/2018 ([id number]) BEHAV CHNG SMOKING 3-10 MIN Diagnosis: [ICD9: ] Diagnosis: [ICD9: ] Diagnosis: [ICD9: ] Diagnosis: [ICD9: ] [facility] CPT-4: 17885 07/17/2018 [id number]) 34624 EST. PATIENT, LEVEL IV Diagnosis: Other specified anemias[ICD10: D64.89] Diagnosis: Other insomnia[ICD10: G47.09] Diagnosis: Atrophy of thyroid (acquired)[ICD10: E03.4] Diagnosis: Allergic urticaria[ICD10: L50.0] [facility] CPT-4: 46115 06/05/2018 [id number]) 58990 EST. PATIENT, LEVEL IV Diagnosis: Essential (primary) hypertension[ICD10: I10] Diagnosis: Nonrheumatic aortic (valve) stenosis[ICD10: I35.0] Diagnosis: Atrophy of thyroid (acquired)[ICD10: E03.4] Diagnosis: Chronic atrial fibrillation[ICD10: I48.2] Kandi Cabrera MD, [facility] CPT-4: 27617 04/03/2018 ([id number]) 34601 EST. PATIENT, LEVEL IV Diagnosis: Essential (primary) hypertension[ICD10: I10] Diagnosis: Chronic atrial fibrillation[ICD10: I48.2] Diagnosis: Nonrheumatic aortic (valve) stenosis[ICD10: I35.0] Diagnosis: Age-related osteoporosis without current pathological fracture[ICD10: M81.0] Kandi Cabrera MD, [facility] CPT-4: 78749 03/06/2018 42811 EST. PATIENT, LEVEL III Diagnosis: Low back pain[ICD10: M54.5] Diagnosis: Dysuria[ICD10: R30.0] Diagnosis: Gastro-esophageal reflux disease without esophagitis[ICD10: K21.9] Payton Cabrera MD, [facility] CPT-4: 38888 02/22/2018 ([id number]) 36128 EST. PATIENT, LEVEL III Diagnosis: Atrophy of thyroid (acquired)[ICD10: E03.4] Diagnosis: Other iron deficiency anemias[ICD10: D50.8] Diagnosis: Epigastric pain[ICD10: R10.13] Kandi Cabrera MD, [facility] CPT-4: 56818 12/13/2017 ([id number]) 65944 EST. PATIENT, LEVEL IV Diagnosis: Diverticulitis of large intestine without perforation or abscess without bleeding[ICD10: K57.32] Kandi Cabrera MD, [facility] CPT-4: 63957 11/29/2017 ([id number]) 92618 EST. PATIENT, LEVEL IV Diagnosis: Atrophy of thyroid (acquired)[ICD10: E03.4] Diagnosis: Other iron deficiency anemias[ICD10: D50.8] Diagnosis: Epigastric pain[ICD10: R10.13] Diagnosis: Right lower quadrant pain[ICD10: R10.31] Diagnosis: Left lower quadrant pain[ICD10: R10.32] Kandi Cabrera MD, [facility] CPT-4: 19582 10/27/2017 20722 EST. PATIENT, LEVEL IV Diagnosis: Atrophy of thyroid (acquired)[ICD10: E03.4] Diagnosis: Other iron deficiency anemias[ICD10: D50.8] Diagnosis: Essential (primary) hypertension[ICD10: I10] Diagnosis: Gastro-esophageal reflux disease without esophagitis[ICD10: K21.9] Payton Cabrera MD, [facility] CPT-4: 34600 07/26/2017 ([id number]) 97769 EST. PATIENT, LEVEL IV Diagnosis: Other iron deficiency anemias[ICD10: D50.8] Diagnosis: Atrophy of thyroid (acquired)[ICD10: E03.4] Diagnosis: Tobacco use[ICD10: Z72.0] Diagnosis: Essential (primary) hypertension[ICD10: I10] Diagnosis: Low back pain[ICD10: M54.5] Kandi Cabrera MD, [facility] CPT-4: 08531 05/26/2017 ([id number]) 18949 EST. PATIENT, LEVEL IV Diagnosis: Shortness of breath[ICD10: R06.02] Diagnosis: Tobacco use[ICD10: Z72.0] Diagnosis: Chronic atrial fibrillation[ICD10: I48.2] Kandi aCbrera MD [facility] CPT-4: 59033 04/11/2017 ([id number]) 56711 EST. PATIENT, LEVEL III Diagnosis: Unsteadiness on feet[ICD10: R26.81] Diagnosis: Tobacco use[ICD10: Z72.0] Kandi Cabrera MD, [facility] CPT-4: 30832 02/07/2017 ([id number]) 89284 EST. PATIENT, LEVEL IV Diagnosis: Cough[ICD10: R05] Diagnosis: Essential (primary) hypertension[ICD10: I10] Diagnosis: Chronic atrial fibrillation[ICD10: I48.2] Diagnosis: Unsteadiness on feet[ICD10: R26.81] Kandi Cabrera MD, [facility] CPT- 4: 86730 01/26/2017 ([id number]) 41830 EST. PATIENT, LEVEL IV Diagnosis: Essential (primary) hypertension[ICD10: I10] Diagnosis: Atrophy of thyroid (acquired)[ICD10: E03.4] Diagnosis: Tobacco use[ICD10: Z72.0] Diagnosis: Chronic atrial fibrillation[ICD10: I48.2] Diagnosis: Mixed hyperlipidemia[ICD10: E78.2] Kandi Cabrera MD, [facility] CPT- 4: 49824 10/19/2016 ([id number]) 24821 EST. PATIENT, LEVEL IV Diagnosis: Atrophy of thyroid (acquired)[ICD10: E03.4] Diagnosis: Mixed hyperlipidemia[ICD10: E78.2] Diagnosis: Essential (primary) hypertension[ICD10: I10] Kandi Cabrera MD [facility] CPT-4: 60068 09/22/2016 ([id number]) 85593 EST. PATIENT, LEVEL IV Diagnosis: Essential (primary) hypertension[ICD10: I10] Diagnosis: Atrophy of thyroid (acquired)[ICD10: E03.4] Diagnosis: Chronic atrial fibrillation[ICD10: I48.2] Kandi Cabrera MD, [facility] CPT-4: 25360 08/31/2016 ([id number]) 72935 EST. PATIENT, LEVEL III Diagnosis: Low back pain[ICD10: M54.5] Diagnosis: Sacroiliitis, not elsewhere classified[ICD10: M46.1] Janeen Cabrera MD, [facility] CPT-4: 13827 08/12/2016 ([id number]) 54441 EST. PATIENT, LEVEL IV Diagnosis: Mixed hyperlipidemia[ICD10: E78.2] Diagnosis: Essential (primary) hypertension[ICD10: I10] Diagnosis: Atrophy of thyroid (acquired)[ICD10: E03.4] Kandi Cabrera MD, [facility] CPT-4: 24616 07/28/2016 ([id number]) 54369 EST. PATIENT, LEVEL IV Diagnosis: Hypothyroidism, unspecified[ICD10: E03.9] Diagnosis: Essential (primary) hypertension[ICD10: I10] Diagnosis: Mixed hyperlipidemia[ICD10: E78.2] Diagnosis: Cellulitis of left lower limb[ICD10: L03.116] Diagnosis: Encounter for immunization[ICD10: Z23] Kandi Cabrera MD, [facility] CPT-4: 29588 01/28/2016 ([id number] 23416 EST. PATIENT, LEVEL IV Diagnosis: Essential (primary) hypertension[ICD10: I10] Diagnosis: Hypothyroidism, unspecified[ICD10: E03.9] Diagnosis: Diarrhea, unspecified[ICD10: R19.7] Diagnosis: Tobacco use[ICD10: Z72.0] Diagnosis: Tobacco abuse counseling[ICD10: Z71.6] Diagnosis: Other obesity due to excess calories[ICD10: E66.09] Kandi Cabrera MD, [facility] CPT-4: 85330 07/29/2015 ([id number] 45242 EST. PATIENT, LEVEL IV Diagnosis: Essential (primary) hypertension[ICD10: I10] Diagnosis: Hypothyroidism, unspecified[ICD10: E03.9] Diagnosis: Actinic keratosis[ICD10: L57.0] Kandi Cabrera MD, [facility] CPT-4: 60719 03/31/2015 ([id number]) OFFICE VISIT, NEW - LEVEL 4 Diagnosis: ESSENTIAL HYPERTENSION[ICD9: 401.9] Diagnosis: HYPOTHYROIDISM[ICD9: 244.9] Diagnosis: HYPERLIPIDEMIA[ICD9: 272.4] Diagnosis: Osteoporosis[ICD9: 733.00] Diagnosis: OSTEOARTH NOS-UNSPEC[ICD9: 715.90] Diagnosis: Sacroiliitis[ICD9: 720.2] Kandi Cabrera MD, [facility] CPT-4: 91180 12/23/2014 Plan of Care Planned Activity Notes [...] cardiovascular status. 07/17/2018 Appointment: Kandi Cabrera WPtel: [address] [place], [place] [phone] (15 min) Moderate 07/17/2018 Patient Education: Patient Medication Summary Completed 07/17/2018 Patient Education: Hypertension Completed 07/17/2018 Appointment: Kandi Cabrera WPtel: [address] [place], [place] [phone] (15 min) Moderate 07/11/2018 Visit Plan: Hypothyroidism [...] on hydroxyzine. 06/05/2018 Appointment: Kandi Cabrera WPtel: [facility] (15 min) Moderate 06/05/2018 Patient Education: Patient [...] Addiction Completed 05/05/2018 Appointment: [facility] (15 min) Moderate 04/11/2018 Visit Plan: Hypertension [...] improving. 04/03/2018 Appointment: Kandi Cabrera WPtel: [phone] [facility] (15 min) Moderate 04/03/2018 Patient Education: [...] a conversation about surgical intervention with her Audio Tape Librarian. 03/06/2018 Appointment: [phone] [facility] [place] (15 min) Moderate 03/06/2018 Patient Education: [...] not improving. 02/22/2018 Appointment: Payton Leon WPtel: [phone] [facility] (15 min) Moderate 02/22/2018 Patient Education: Patient Medication Summary Completed 02/22/2018 Patient Education: Back Pain Completed 02/22/2018 Visit Plan: Diarrhea - improved - pt advised to avoid seeds, nuts, popcorn, or any other food which has been proven to upset the pt's stomach. 12/13/2017 Appointment: Kandi Cabrera WPtel: [facility] (15 min) Moderate 12/13/2017 Patient Education: Patient Medication Summary Completed 12/13/2017 Visit Plan: Diverticulitis - rx for antibiotic sent to pt's pharmacy - pt advised to avoid seeds, nuts, popcorn, or any other food which has been proven to upset the pt's stomach. 11/29/2017 Appointment: Kandi Cabrera WPtel: [facility] [place] (15 min) Moderate 11/29/2017 Patient Education: Patient Medication Summary Completed 11/29/2017 Appointment: Kandi Cabrera WPtel: [facility] (15 min) Moderate 11/24/2017 Visit Plan: [...] days 10/27/2017 Appointment: [phone] [facility] (15 min) Moderate 10/27/2017 Patient Education: Patient [...] improving. 07/26/2017 [phone] (30 min) Complex 07/26/2017 Patient Education: Patient Medication Summary Completed 07/26/2017 Care Plan: Iron Pending 07/26/2017 Care Plan: Referral Order SNOMED-CT : [id number] Pending 07/26/2017 Visit Plan: Hypertension - well [...] recommended. 05/26/2017 Appointment: [facility] Cab[phone] [facility] [place] (15 min) Moderate 05/26/2017 Patient Education: Patient Medication Summary Completed 05/26/2017 Patient Education: Patient Medication Summary Completed 05/19/2017 Care Plan: Iron Pending 05/19/2017 Visit Plan: Dyspnea on Exertion - uncontrolled - I have recommended pt to have Pulmonary function studies as well as a referral back to her Audio Tape Librarian - Dr. Hanna - I suspect she [...] cigarettes". 04/11/2017 Appointment: [phone] [facility] [place] (15 min) Moderate 04/11/2017 Patient Education: Patient Medication Summary Completed 04/11/2017 Patient Education: Smoking and Tobacco Addiction Completed 04/11/2017 Care Plan: Referral Order SNOMED-CT : [id number] Pending 04/11/2017 Appointment: [phone] [facility] [place] (15 min) Moderate 02/14/2017 Appointment: Injection 02/09/2017 Referral: [facility] W[facility]: [phone] [facility] Patient informed. Completed 02/09/2017 Patient Education: Patient Medication Summary Completed 02/09/2017 Patient Education: Smoking and Tobacco Addiction Completed 02/09/2017 Visit Plan: Tobacco abuse - chronic condition for this patient. Patient has been counseled about need to stop smoking due to the negative health affects. 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 Rx for wellbutrin 75mg 1/2 pill bid. Gait instability - referral to [facility] for gait instability 02/07/2017 Appointment: Kandi Cabrera [facility] [phone] [facility] (15 min) Moderate 02/07/2017 Patient Education: Patient Medication Summary Completed 02/07/2017 Patient Education: Smoking and Tobacco Addiction Completed 02/07/2017 Care Plan: Referral Order SNOMED-CT : [id number] Pending 02/07/2017 Visit Plan: Cough - pt [...] becoming uncontrolled. 01/26/2017 Appointment: Kandi Cabrera WPtel: [facility] (15 min) Moderate 01/26/2017 Patient Education: Patient [...] per week. 10/19/2016 Appointment: Kandi Cabrera WPtel: [facility] (15 min) Moderate 10/19/2016 Patient Education: Patient Medication Summary Completed 10/19/2016 Patient Education: Smoking and Tobacco Addiction Completed 10/19/2016 Patient Education: Hypertension Completed 10/19/2016 Visit Plan: Atrial Fibrillation - pt on chronic anticoagulation and is not optimally rate controlled. Pt is to see her package collector tomorrow, will discuss with him her plans [...] control. 09/22/2016 Appointment: [facility] Cab[phone] [facility] (15 min) Moderate 09/22/2016 Patient Education: Patient [...] of control. 08/31/2016 Appointment: Kandi Cabrera WPtel: [facility] (15 min) Moderate 08/31/2016 Patient Education: Patient Medication Summary Completed 08/31/2016 Patient Education: Smoking and Tobacco Addiction Completed 08/31/2016 Patient Education: Hypertension Completed 08/31/2016 Visit Plan: Sacroiliitis -kenalog injection today in the office- tylenol as directed-heat as directed-xray lumbar spine. Pt is to call if the symptoms do not improve or if they worsen. 08/12/2016 Appointment: Janeen Marsh WPtel[phone] (30 min) Complex 08/12/2016 Patient Education: Patient Medication Summary Completed 08/12/2016 Patient Education: Smoking and Tobacco Addiction Completed 08/12/2016 Appointment: Pay[facility] Leon [facility]el[phone] [facility] [facility] - Annual Wellness Visit 07/30/2016 Visit [...] to medications. 07/28/2016 Appointment: Kandi Cabrera WPtel: [address] [place], [place] [address] (15 min) Moderate 07/28/2016 Patient Education: Patient [...] today 01/28/2016 Appointment: [facility] Cabrera [facility] [phone] [facility] (15 min) Moderate 01/28/2016 Patient Education: Patient [...] activity 07/29/2015 Appointment: K[facility] Cabrera [facility] [phone] [facility] (15 min) Moderate 07/29/2015 Patient Education: Patient [...] of control. A ctinic keratosis - left buddhism and left nasal bridge - pt to use efudex on the lesions on the nose and face. 03/31/2015 Appointment: Kandi Cabrera [facility]el[facility] [phone] [facility] (15 min) Moderate 03/31/2015 Patient Education: Patient [...] levels. 12/23/2014 Appointment: [facility] Cabrera [facility]: [phone] [facility] [place] ([place]) New Patient 12/23/2014 Patient Education: Patient Medication Summary Completed 12/23/2014 Patient Education: Hypertension Completed 12/23/2014 Care Plan: Referral Order SNOMED-CT : [id number] Ordered 12/23/2014 Referral: External, Ordering Provider Referral Completed Referral: External, Ordering Provider Referral Appointment Requested Referral: Maggi Reaves Referral Initiated Referral[phone] [facility] [place] Referral Appointment Requested Referral: External, Ordering Provider Dr. Hanna's office has already contacted her about an appt scheduled for April 25 at 9:00 AM. Completed Instructions Comment . Diarrhea - improved - pt advised [...] levels of control. Actinic keratosis - left buddhism and left nasal bridge - pt to [...] daily, call if not improving. PROBIOTIC - [employer], [employer], lactobacilus/acidophilis brand probiotic - these can be [...] a conversation about surgical intervention with her Audio Tape Librarian. . Diverticulitis - rx for antibiotic sent to pt's pharmacy - pt advised to avoid seeds, nuts, popcorn, or any other food which has been proven to upset the pt's stomach. . Atrial Fibrillation - pt on chronic anticoagulation and is not optimally rate controlled. Pt is to see her package collector tomorrow, will discuss with him her plans [...] pill bid. Gait instability - referral to [facility] for gait instability zantac 150mg take twice [...] taken three times daily x 10 days Will culture your urine to make sure [...] if the symptoms are not improving. . Dyspnea on Exertion - uncontrolled - I have recommended pt to have Pulmonary function studies as well as a referral back to her Audio Tape Librarian - Dr. aHnna - I suspect she may need to [...]
--- OUTSIDE RECORDS SUMMARY | 2018-12-29 13:53 | XMS REPORT | CCD ---
Author Author Kandi Cabrera MD, [facility] Address [address] [place] [address] Phone Care Team Providers Care Director Of Restaurants Name Role Phone PP Unavailable CCM Unavailable Summary Purpose Interface Exchange Insurance Providers Payer name Policy type / Coverage type Covered libertarian ID Effective Begin Date Effective End Date [facility] Commercial Insurance [id number] Unknown WPS Medicare Part B Commercial Insurance [id number] 2017 Unknown Family history Father Diagnosis Age [...] Unknown Retired 12/23/[address]: 29023351 Current every day smoker 12/23/2014 Number of years using tobacco Unknown > 50 trying to quit 12/23/2014 Number of cigarettes/day Unknown 10 (Half a pack) 12/23/[address]: 469004965 Never drinks alcohol 12/23/2014 Allergies, Adverse Reactions, Alerts Substance Reaction Codes Entered Date Inactivated Date Status ciprofloxacin RxNorm: 16471 05/05/2018 No Inactive Date Active SULFA(SULFONAMIDE ANTIBIOTICS) [...] Start Date Stop Date Status Fill Instructions Tricor 145 mg tablet RxNorm: 143607 1 Tablet(s) PO daily 07/17/2018 10/09/2019 Active pantoprazole 40 mg tablet,delayed release RxNorm: 257271 1 Tablet(s) PO daily 07/17/2018 10/09/2019 Active hydroxyzine HCl 25 mg tablet RxNorm: 184405 2 Tablet(s) PO QHS may increase to two pills at hs if allergic reactions are occuring 07/17/2018 11/13/2018 Active Synthroid 100 mcg tablet RxNorm: 316341 1 Tablet(s) PO daily 06/05/2018 08/28/2019 Active hydroxyzine HCl 25 mg tablet RxNorm: 397141 1 Tablet(s) PO QHS may increase to two pills at hs if allergic reactions are occuring 06/05/2018 07/16/2018 Inactive Lasix 20 mg tablet RxNorm: 029895 1 Tablet(s) PO daily as needed not more than one time a day 05/19/2018 09/15/2018 Active prednisone 20 mg tablet RxNorm: 985345 2 Tablet(s) PO daily 02/22/2018 02/26/2018 Inactive Cipro 500 mg tablet RxNorm: 629324 1 Tablet(s) PO BID 02/22/2018 02/28/2018 Inactive potassium chloride ER 10 mEq tablet,extended release RxNorm: 804141 1 Tablet(s) PO UD take on days that you take a lasix pill 02/13/2018 02/07/2019 Active Synthroid 100 mcg tablet RxNorm: 124568 1 Tablet(s) PO daily 02/13/2018 06/04/2018 Inactive simvastatin 20 mg tablet RxNorm: 842707 1 Tablet(s) PO QHS 01/13/2018 01/07/2019 Active metronidazole 500 mg tablet RxNorm: 632878 1 Tablet(s) PO TID 11/29/2017 12/08/2017 Inactive alendronate 70 mg tablet RxNorm: 086341 1 Tablet(s) PO weekly 11/29/2017 03/05/2018 Inactive omeprazole 40 mg capsule,delayed release RxNorm: 281822 1 Capsule(s) PO daily 11/11/2017 07/16/2018 Inactive Flagyl 500 mg tablet RxNorm: 985254 1 Tablet(s) PO TID 10/27/2017 11/05/2017 Inactive sucralfate 1 gram tablet RxNorm: 313929 1 Tablet(s) PO TID 07/26/2017 07/20/2018 Active fluticasone 50 mcg/actuation nasal spray,suspension RxNorm: 7551431 1 [place] NASAL daily 07/26/2017 No Stop Date Active Protonix 40 mg tablet,delayed release RxNorm: 190953 1 Tablet(s) PO daily 07/26/2017 10/23/2017 Inactive perphenazine-amitriptyline 2 mg-10 mg tablet RxNorm: 105048 2 Tablet(s) PO daily 05/26/2017 05/20/2018 Inactive Tricor 145 mg tablet RxNorm: 797029 1 Tablet(s) PO daily 05/26/2017 05/20/2018 Inactive bupropion HCl 75 mg tablet RxNorm: 428557 1/2 Tablet(s) PO BID 02/07/2017 05/07/2017 Inactive Eliquis 5 mg tablet RxNorm: 7606865 1 Tablet(s) PO BID 01/26/2017 01/20/2018 Inactive sotalol 80 mg tablet RxNorm: 4031083 1 Tablet(s) PO BID 01/26/2017 04/20/2018 Inactive potassium chloride ER 10 mEq tablet,extended release RxNorm: 565613 1 Tablet(s) PO UD take on days that you take a lasix pill 01/26/2017 01/20/2018 Inactive Synthroid 100 mcg tablet RxNorm: 733806 1 Tablet(s) PO daily 01/26/2017 02/12/2018 Inactive diltiazem ER 240 mg capsule,extended release RxNorm: 183900 1 Capsule(s) PO BID 01/26/2017 05/03/2017 Inactive Lasix 20 mg tablet RxNorm: 1 Tablet(s) PO daily as needed not more than one time a day 01/26/2017 05/25/2017 Inactive simvastatin 20 mg tablet RxNorm: 609759 1 Tablet(s) PO QHS 12/21/2016 12/15/2017 Inactive alendronate 70 mg tablet RxNorm: 583002 1 Tablet(s) PO weekly 12/21/2016 11/28/2017 Inactive omeprazole 40 mg capsule,delayed release RxNorm: 246115 1 Capsule(s) PO daily 10/19/2016 10/12/2017 Inactive metoprolol succinate ER 100 mg tablet,extended release 24 hr RxNorm: 310594 1.5 Tablet(s) PO daily 09/17/2016 10/18/2016 Inactive Dosage increased by Dr. Vazquez potassium chloride ER 10 mEq tablet,extended release RxNorm: 699891 1 Tablet(s) PO UD take on days that you take a lasix pill 08/31/2016 12/28/2016 Inactive Lasix 20 mg tablet RxNorm: 1 Tablet(s) PO daily as needed not more than one time a day 08/31/2016 12/28/2016 Inactive Kenalog 40 mg/mL suspension for injection RxNorm: 7898211 1 Milliliter(s) Inj 08/12/2016 08/12/2016 Inactive Tricor 145 mg tablet RxNorm: 154590 1 Tablet(s) PO daily 05/21/2016 05/15/2017 Inactive atenolol 25 mg tablet RxNorm: 588201 1 Tablet(s) PO daily 05/21/2016 08/30/2016 Inactive sucralfate 1 gram tablet RxNorm: 991376 1 Tablet(s) PO TID 05/21/2016 05/15/2017 Inactive enalapril maleate 10 mg tablet RxNorm: 680332 1 Tablet(s) PO daily 04/26/2016 08/30/2016 Inactive perphenazine-amitriptyline 2 mg-10 mg tablet RxNorm: 557609 2 Tablet(s) PO daily 04/26/2016 04/20/2017 Inactive fluticasone 50 mcg/actuation nasal spray,suspension RxNorm: 9248530 1 [place] NASAL daily 04/26/2016 07/25/2017 Inactive Synthroid 100 mcg tablet RxNorm: 411212 1 Tablet(s) PO daily 02/09/2016 01/25/2017 Inactive Synthroid 100 mcg tablet RxNorm: 378874 1 Tablet(s) PO daily 02/09/2016 02/08/2016 Inactive Keflex 500 mg capsule RxNorm: 289740 1 Capsule(s) PO TID 01/28/2016 02/01/2016 Inactive hydrochlorothiazide 25 mg tablet RxNorm: 362004 TAKE 1 TABLET DAILY 01/07/2016 08/30/2016 Inactive enalapril maleate 10 mg tablet RxNorm: 764978 1 Tablet(s) PO daily 12/26/2015 04/25/2016 Inactive hydrochlorothiazide 25 mg tablet RxNorm: 332656 1 Tablet(s) PO daily 12/08/2015 08/30/2016 Inactive omeprazole 40 mg capsule,delayed release RxNorm: 206621 1 Capsule(s) PO daily 12/08/2015 10/18/2016 Inactive simvastatin 20 mg tablet RxNorm: 566058 1 Tablet(s) PO QHS 11/14/2015 11/07/2016 Inactive alendronate 70 mg tablet RxNorm: 627196 1 Tablet(s) PO weekly 10/31/2015 10/24/2016 Inactive Synthroid 112 mcg tablet RxNorm: 635125 1 Tablet(s) PO daily 07/16/2015 02/08/2016 Inactive sucralfate 1 gram tablet RxNorm: 856484 1 Tablet(s) PO TID 06/17/2015 05/20/2016 Inactive perphenazine-amitriptyline 2 mg-10 mg tablet RxNorm: 688935 2 Tablet(s) PO daily 06/17/2015 04/25/2016 Inactive fluticasone 50 mcg/actuation nasal spray,suspension RxNorm: 8546974 1 [place] NASAL daily 06/17/2015 04/25/2016 Inactive fluorouracil 5 % topical cream RxNorm: 346738 APPLY 1 APPLICATION TOPICALLY TWO TIMES A DAY 06/16/2015 06/25/2015 Inactive fluticasone 50 mcg/actuation nasal spray,suspension RxNorm: 280854 1 [place] NASAL daily 06/12/2015 06/16/2015 Inactive atenolol 25 mg tablet RxNorm: 936160 1 Tablet(s) PO daily 05/14/2015 05/07/2016 Inactive Tricor 145 mg tablet RxNorm: 859865 1 Tablet(s) PO daily 04/23/2015 04/16/2016 Inactive Synthroid 125 mcg tablet RxNorm: 766066 1 Tablet(s) PO daily 03/31/2015 07/15/2015 Inactive fluorouracil 5 % topical cream RxNorm: 207992 1 Application TOP BID 03/31/2015 04/09/2015 Inactive Synthroid 137 mcg tablet RxNorm: 734644 1 Tablet(s) PO daily 12/25/2014 12/24/2014 Inactive Synthroid 137 mcg tablet RxNorm: 631151 1 Tablet(s) PO daily 12/25/2014 03/30/2015 Inactive Voltaren 1 % topical gel RxNorm: 756288 4 Gram(s) TOP QID 12/23/2014 04/21/2015 Inactive alendronate 70 mg tablet RxNorm: 088536 1 Tablet(s) PO weekly 12/23/2014 12/22/2014 Inactive alendronate 70 mg tablet RxNorm: 557700 1 Tablet(s) PO weekly 12/23/2014 10/30/2015 Inactive Fosamax 70 mg tablet RxNorm: 195995 1 Tablet(s) PO weekly QW 12/23/2014 01/27/2016 Inactive omeprazole 40 mg capsule,delayed release RxNorm: 554810 1 Capsule(s) PO daily 12/18/2014 12/07/2015 Inactive omeprazole 40 mg capsule,delayed release RxNorm: 903259 1 Capsule(s) PO daily 12/18/2014 12/17/2014 Inactive hydrochlorothiazide 25 mg tablet RxNorm: 916859 1 Tablet(s) PO daily 12/18/2014 12/17/2014 Inactive hydrochlorothiazide 25 mg tablet RxNorm: 368638 1 Tablet(s) PO daily 12/18/2014 12/07/2015 Inactive L-Lysine 1,000 mg tablet RxNorm: 812230 1 Tablet(s) PO daily No Start Date Active folic acid 400 mcg tablet RxNorm: 087506 1 Tablet(s) PO daily No Start Date Active B12 1000 mcg RxNorm: 1/2 Tablet(s) PO daily No Start Date Active Vitamin D3 1,000 unit chewable tablet RxNorm: 285614 1 Tablet(s) PO daily No Start Date Active diltiazem 120 mg tablet RxNorm: 112317 1 Tablet(s) PO daily No Start Date Active metoprolol succinate ER 100 mg tablet,extended release 24 hr RxNorm: 873233 1 Tablet(s) PO daily No Start Date 09/16/2016 Inactive enalapril maleate 10 mg tablet RxNorm: 356430 1 Tablet(s) PO daily No Start Date 12/25/2015 Inactive perphenazine-amitriptyline 2 mg-10 mg tablet RxNorm: 640527 2 Tablet(s) PO daily No Start Date 06/16/2015 Inactive sucralfate 1 gram tablet RxNorm: 573474 1 Tablet(s) PO TID No Start Date 06/16/2015 Inactive hydrochlorothiazide 25 mg tablet RxNorm: 260510 1 Tablet(s) PO daily No Start Date 08/30/2016 Inactive vitamin E (dl, acetate) 400 unit capsule RxNorm: 661897 1 Capsule(s) PO daily No Start Date 03/05/2018 Inactive sotalol 80 mg tablet RxNorm: 1967227 1 Tablet(s) PO BID No Start Date 01/25/2017 Inactive Synthroid 150 mcg tablet RxNorm: 722668 1 Tablet(s) PO daily No Start Date 12/24/2014 Inactive simvastatin 20 mg tablet RxNorm: 709607 1 Tablet(s) PO daily No Start Date 11/13/2015 Inactive Vitamin C RxNorm: PO 1000mg qd No Start Date 03/05/2018 Inactive Fosamax 70 mg tablet RxNorm: 783886 1 Tablet(s) PO weekly No Start Date 12/22/2014 Inactive Tricor 145 mg tablet RxNorm: 695724 1 Tablet(s) PO daily No Start Date 04/22/2015 Inactive diltiazem ER 180 mg capsule,24 hr,extended release RxNorm: 665338 1 Capsule(s) PO daily No Start Date 03/05/2018 Inactive diltiazem ER 240 mg capsule,extended release RxNorm: 185359 1 Capsule(s) PO BID No Start Date 01/25/2017 Inactive Eliquis 5 mg tablet RxNorm: 5006701 1 Tablet(s) PO BID No Start Date 01/25/2017 Inactive fluticasone 50 mcg/actuation nasal spray,suspension RxNorm: 838107 1 [place] NASAL daily No Start Date 06/11/2015 Inactive atenolol 25 mg tablet RxNorm: 109986 1 Tablet(s) PO daily No Start Date 05/13/2015 Inactive Medication Administered Medication Codes Instructions Start Date Status Kenalog 40 mg/mL suspension for injection RxNorm: 1777229 1Milliliter 08/12/2016 No longer Active Immunizations Vaccine [...] Observation Code Item Item Code Result Date Tibc Ord40 Iron 14 ug/dl 07/13/2018 Tibc [...] 7.8 g/dl 06/21/2018 Cbc With Differential Ord2 Neut% 60.0 % 06/21/2018 Cbc With Differential Ord2 HCT 25.5 % 06/21/2018 Cbc With Differential Ord2 MCV 81.5 fl 06/21/2018 Cbc With Differential Ord2 Lymph% 21.8 % 06/21/2018 Cbc With Differential Ord2 [place]% 15.0 % 06/21/2018 Cbc With Differential Ord2 MCH 24.9 pg 06/21/2018 Cbc With Differential Ord2 MCHC 30.6 pg 06/21/2018 Cbc With Differential Ord2 Eos% 2.6 % 06/21/2018 Cbc With Differential Ord2 PLT 136 K/ul 06/21/2018 Cbc With Differential Ord2 Baso% 0.6 % 06/21/2018 Cbc With Differential Ord2 Neut ABS# 3.71 K/ul 06/21/2018 Cbc With Differential Ord2 RDW 17.3 % 06/21/2018 Cbc With Differential Ord2 Lymph ABS# 1.35 K/ul 06/21/2018 Cbc With Differential Ord2 [place] ABS# 0.9 K/ul 06/21/2018 Cbc With Differential [...] 66.4 % 06/01/2018 Cbc With Differential Ord2 Lymph% 15.7 % 06/01/2018 Cbc With Differential Ord2 MCV 79.5 fl 06/01/2018 Cbc With Differential Ord2 MCH 24.9 pg 06/01/2018 Cbc With Differential Ord2 [place]% 12.8 % 06/01/2018 Cbc With Differential Ord2 Eos% 3.9 % 06/01/2018 Cbc With Differential Ord2 MCHC 31.3 pg 06/01/2018 Cbc With Differential Ord2 PLT 492 K/ul 06/01/2018 Cbc With Differential Ord2 Baso% 1.2 % 06/01/2018 Cbc With Differential Ord2 Neut ABS# 3.43 K/ul 06/01/2018 Cbc With Differential Ord2 RDW 14.8 % 06/01/2018 Cbc With Differential Ord2 Lymph ABS# 0.81 K/ul 06/01/2018 Cbc With Differential Ord2 [place] ABS# 0.7 K/ul 06/01/2018 Cbc With Differential [...] 29.9 pg 03/17/2018 Cbc With Differential Ord2 [place]% 13.3 % 03/17/2018 Cbc With Differential Ord2 [...] 0.90 K/ul 03/17/2018 Cbc With Differential Ord2 [place] ABS# 0.8 K/ul 03/17/2018 Cbc With Differential [...] 93.5 fl 02/22/2018 Cbc With Differential Ord2 [place]% 11.5 % 02/22/2018 Cbc With Differential Ord2 [...] 0.86 K/ul 02/22/2018 Cbc With Differential Ord2 [place] ABS# 0.7 K/ul 02/22/2018 Cbc With Differential Ord2 Eos ABS# 0.2 K/ul 02/22/2018 Cbc With Differential Ord2 Baso ABS# 0.1 K/ul 02/22/2018 Tsh Ord6 TSH (3rd IS) 0.66 uIU/mL 02/22/2018 Free T4 Skd895 FREE T4 1.22 ng/dL 02/22/2018 Comp Metabolic Xsr472 NA 136 mEq/L 02/22/2018 Comp Metabolic Ahn011 K 4.4 mEq/L 02/22/2018 Comp Metabolic Lwy367 CL 102 mEq/L 02/22/2018 Comp Metabolic Pmk489 CO2 23.0 mEq/L 02/22/2018 Comp Metabolic Mut448 ANION GAP 15 02/22/2018 Comp Metabolic Gud735 GLUCOSE 94 mg/dL 02/22/2018 Comp Metabolic Tvf334 Creat 1.2 mg/dL 02/22/2018 Comp Metabolic Yvs376 eGFR 46 ml/min/1.73m2 02/22/2018 Comp Metabolic Ppl689 BUN 31 mg/dL 02/22/2018 Comp Metabolic Mfh669 B/C Ratio 25.8 Ratio 02/22/2018 Comp Metabolic Yoo404 CALCIUM 9.2 mg/dL 02/22/2018 Comp Metabolic Eom314 ALK PHOS 34 U/L 02/22/2018 Comp Metabolic Yhv887 AST(SGOT) 18 U/L 02/22/2018 Comp Metabolic Ajw778 ALT(SGPT) 8 U/L 02/22/2018 Comp Metabolic Bjm184 BILI T 0.4 mg/dL 02/22/2018 Comp Metabolic Xiv093 ALBUMIN 3.6 g/dL 02/22/2018 Comp Metabolic Laz818 TPRO 6.2 g/dL 02/22/2018 Comp Metabolic Gcv800 GLOB 2.6 g/dL 02/22/2018 Comp Metabolic Ftb944 A/G Ratio 1.4 Ratio 02/22/2018 Comp Metabolic Oow892 Osmo 278 mOsmo 02/22/2018 Free T4 Bzc974 FREE T4 1.11 ng/dL 10/27/2017 Lipid Ord30 [...] 23.3 % 10/27/2017 Cbc With Differential Ord2 [place]% 11.3 % 10/27/2017 Cbc With Differential Ord2 [...] 1.16 K/ul 10/27/2017 Cbc With Differential Ord2 [place] ABS# 0.6 K/ul 10/27/2017 Cbc With Differential Ord2 Eos ABS# 0.2 K/ul 10/27/2017 Cbc With Differential Ord2 Baso ABS# 0.0 K/ul 10/27/2017 Comp Metabolic Cvq018 NA 135 mEq/L 10/27/2017 Comp Metabolic Rha903 K 4.7 mEq/L 10/27/2017 Comp Metabolic Vxs225 CL 101 mEq/L 10/27/2017 Comp Metabolic Bun900 CO2 23.0 mEq/L 10/27/2017 Comp Metabolic Giu054 ANION GAP 16 10/27/2017 Comp Metabolic Ubq869 GLUCOSE 84 mg/dL 10/27/2017 Comp Metabolic Xac492 Creat 1.2 mg/dL 10/27/2017 Comp Metabolic Lae903 eGFR 46 ml/min/1.73m2 10/27/2017 Comp Metabolic Jle085 BUN 30 mg/dL 10/27/2017 Comp Metabolic Ure820 B/C Ratio 25.2 Ratio 10/27/2017 Comp Metabolic Sfh795 CALCIUM 9.4 mg/dL 10/27/2017 Comp Metabolic Alj748 ALK PHOS 30 U/L 10/27/2017 Comp Metabolic Awa588 AST(SGOT) 25 U/L 10/27/2017 Comp Metabolic Xqp457 ALT(SGPT) 12 U/L 10/27/2017 Comp Metabolic Ljb403 BILI T 0.5 mg/dL 10/27/2017 Comp Metabolic Nvs518 ALBUMIN 3.7 g/dL 10/27/2017 Comp Metabolic Eoy293 TPRO 6.5 g/dL 10/27/2017 Comp Metabolic Sab666 GLOB 2.8 g/dL 10/27/2017 Comp Metabolic Yyx637 A/G Ratio 1.3 Ratio 10/27/2017 Comp Metabolic Zfe833 Osmo 275 mOsmo 10/27/2017 Hgb & Hct Ord65 HGB 12.2 g/dl 07/29/2017 Hgb & Hct Ord65 HCT 38.8 % 07/29/2017 Tibc Ord40 Iron 79 ug/dl 07/26/2017 Tibc Ord40 UIBC 380 ug/dL 07/26/2017 Tibc Ord40 TIBC 459 ug/dL 07/26/2017 Tibc Ord40 Fe-%Sat 17.2 % 07/26/2017 Tsh Ord6 TSH (3rd IS) 0.46 uIU/mL 07/26/2017 Ferritin Ord22 FERRITIN 83.6 ng/mL 07/26/2017 Free T4 Zfv027 FREE T4 1.00 ng/dL 07/26/2017 Tibc Ord40 [...] 31.0 pg 08/02/2016 Cbc With Differential Ord2 [place]% 9.4 % 08/02/2016 Cbc With Differential Ord2 [...] 1.44 K/ul 08/02/2016 Cbc With Differential Ord2 [place] ABS# 0.7 K/ul 08/02/2016 Cbc With Differential Ord2 Eos ABS# 0.3 K/ul 08/02/2016 Cbc With Differential Ord2 Baso ABS# 0.1 K/ul 08/02/2016 Lipid Ord30 CHOL 142 mg/dL 08/02/2016 Lipid Ord30 HDL 40.0 mg/dl 08/02/2016 Lipid Ord30 TRIG 169 mg/dL 08/02/2016 Lipid Ord30 LDL 68 mg/dL 08/02/2016 Lipid Ord30 C/HDL 3.6 Ratio 08/02/2016 Comp Metabolic Jkj387 NA 139 mEq/L 08/02/2016 Comp Metabolic Olf293 K 5.2 mEq/L 08/02/2016 Comp Metabolic Myc730 CL 108 mEq/L 08/02/2016 Comp Metabolic Ddc370 CO2 22.0 mEq/L 08/02/2016 Comp Metabolic Tbo191 ANION GAP 14 08/02/2016 Comp Metabolic Cbb441 GLUCOSE 103 mg/dL 08/02/2016 Comp Metabolic Mmg231 Creat 1.1 mg/dL 08/02/2016 Comp Metabolic Tvb305 eGFR 54 ml/min/1.73m2 08/02/2016 Comp Metabolic Ppq786 BUN 26 mg/dL 08/02/2016 Comp Metabolic Vjy507 B/C Ratio 24.8 Ratio 08/02/2016 Comp Metabolic Orv152 CALCIUM 9.4 mg/dL 08/02/2016 Comp Metabolic Hyy827 ALK PHOS 41 U/L 08/02/2016 Comp Metabolic Jdq954 AST(SGOT) 18 U/L 08/02/2016 Comp Metabolic Ikh865 ALT(SGPT) 10 U/L 08/02/2016 Comp Metabolic Esy048 BILI T 0.3 mg/dL 08/02/2016 Comp Metabolic Thh104 ALBUMIN 3.7 g/dL 08/02/2016 Comp Metabolic Tye358 TPRO 6.5 g/dL 08/02/2016 Comp Metabolic Fsq766 GLOB 2.8 g/dL 08/02/2016 Comp Metabolic Hxx761 A/G Ratio 1.3 Ratio 08/02/2016 Comp Metabolic Dfu077 Osmo 283 mOsmo 08/02/2016 Free T4 Mbg018 FREE T4 1.08 ng/dL 08/02/2016 Tsh Ord6 hTSH II 0.35 uIU/mL 05/13/2016 Free T4 Ler047 FREE T4 0.78 ng/dL 05/13/2016 Free T4 Kuk459 FREE T4 1.13 ng/dL 01/28/2016 Tsh Ord6 [...] 93.1 fl 07/14/2015 Cbc With Differential Ord2 [place]% 9.1 % 07/14/2015 Cbc With Differential Ord2 [...] 1.80 K/ul 07/14/2015 Cbc With Differential Ord2 [place] ABS# 0.7 K/ul 07/14/2015 Cbc With Differential [...] Ord30 C/HDL 3.0 Ratio 07/14/2015 Comp Metabolic Tfq326 NA 136 mEq/L 07/14/2015 Comp Metabolic Zok363 K 4.4 mEq/L 07/14/2015 Comp Metabolic Abj560 CL 101 mEq/L 07/14/2015 Comp Metabolic Gao211 CO2 27.0 mEq/L 07/14/2015 Comp Metabolic Xax218 ANION GAP 12 07/14/2015 Comp Metabolic Cjz595 GLUCOSE 97 mg/dL 07/14/2015 Comp Metabolic Hib988 Creat 1.0 mg/dL 07/14/2015 Comp Metabolic Uvl034 eGFR 56 ml/min/1.73m2 07/14/2015 Comp Metabolic Sjw938 BUN 27 mg/dL 07/14/2015 Comp Metabolic Lzp362 B/C Ratio 26.7 Ratio 07/14/2015 Comp Metabolic Bha690 CALCIUM 9.3 mg/dL 07/14/2015 Comp Metabolic Zza416 ALK PHOS 33 U/L 07/14/2015 Comp Metabolic Izp595 AST(SGOT) 14 U/L 07/14/2015 Comp Metabolic Wxc685 ALT(SGPT) 8 U/L 07/14/2015 Comp Metabolic Xph413 BILI T 0.4 mg/dL 07/14/2015 Comp Metabolic Qzg461 ALBUMIN 3.8 g/dL 07/14/2015 Comp Metabolic Fna470 TPRO 6.6 g/dL 07/14/2015 Comp Metabolic Ark416 GLOB 2.8 g/dL 07/14/2015 Comp Metabolic Joe443 A/G Ratio 1.4 Ratio 07/14/2015 Comp Metabolic Vnv361 Osmo 277 mOsmo 07/14/2015 Tsh Ord6 hTSH II 0.23 uIU/mL 07/14/2015 Free T4 Btk617 FREE T4 1.19 ng/dL 07/14/2015 Cbc With [...] Ord30 C/HDL 3.4 Ratio 03/26/2015 Comp Metabolic Ney459 NA 135 mEq/L 03/26/2015 Comp Metabolic Afn618 K 5.0 mEq/L 03/26/2015 Comp Metabolic Yqp052 CL 99 mEq/L 03/26/2015 Comp Metabolic Bod896 CO2 27.0 mEq/L 03/26/2015 Comp Metabolic Zdl649 ANION GAP 14 03/26/2015 Comp Metabolic Xvm996 GLUCOSE 88 mg/dL 03/26/2015 Comp Metabolic Ads093 Creat 1.1 mg/dL 03/26/2015 Comp Metabolic Xkz295 eGFR 50 ml/min/1.73m2 03/26/2015 Comp Metabolic Chj858 BUN 27 mg/dL 03/26/2015 Comp Metabolic Dgr600 B/C Ratio 24.1 Ratio 03/26/2015 Comp Metabolic Qcu475 CALCIUM 9.9 mg/dL 03/26/2015 Comp Metabolic Ylo578 ALK PHOS 30 U/L 03/26/2015 Comp Metabolic Oez964 AST(SGOT) 16 U/L 03/26/2015 Comp Metabolic Mbj936 ALT(SGPT) 8 U/L 03/26/2015 Comp Metabolic Nfl067 BILI T 0.4 mg/dL 03/26/2015 Comp Metabolic Fes819 ALBUMIN 3.9 g/dL 03/26/2015 Comp Metabolic Msp769 TPRO 6.4 g/dL 03/26/2015 Comp Metabolic Mjm589 GLOB 2.5 g/dL 03/26/2015 Comp Metabolic Rmq089 A/G Ratio 1.6 Ratio 03/26/2015 Comp Metabolic Cqn502 Osmo 275 mOsmo 03/26/2015 Free T4 Nqw614 FREE T4 1.22 ng/dL 03/26/2015 Tsh Ord6 hTSH II 0.20 uIU/mL 03/26/2015 Vitamin D 25 Oh Inv1007 VITAMIN D, 25 HYDROXY 51.09 ng/mL 12/25/2014 Tsh Ord6 hTSH II 0.09 uIU/mL 12/23/2014 Free T4 Gwo581 FREE T4 1.30 ng/dL 12/23/2014 Comp Metabolic Kki956 NA 135 mEq/L 12/23/2014 Comp Metabolic Mjh532 K 4.7 mEq/L 12/23/2014 Comp Metabolic Glh752 CL 100 mEq/L 12/23/2014 Comp Metabolic Svn821 CO2 23.0 mEq/L 12/23/2014 Comp Metabolic Nsg073 ANION GAP 17 12/23/2014 Comp Metabolic Lqc380 GLUCOSE 93 mg/dL 12/23/2014 Comp Metabolic Naa695 Creat 1.1 mg/dL 12/23/2014 Comp Metabolic Rmh606 eGFR 53 ml/min/1.73m2 12/23/2014 Comp Metabolic Nsi076 BUN 26 mg/dL 12/23/2014 Comp Metabolic Trs782 B/C Ratio 24.3 Ratio 12/23/2014 Comp Metabolic Tmr552 CALCIUM 9.5 mg/dL 12/23/2014 Comp Metabolic Qse454 ALK PHOS 27 U/L 12/23/2014 Comp Metabolic Ajj418 AST(SGOT) 16 U/L 12/23/2014 Comp Metabolic Hlr897 ALT(SGPT) 8 U/L 12/23/2014 Comp Metabolic Dto394 BILI T 0.4 mg/dL 12/23/2014 Comp Metabolic Plv717 ALBUMIN 3.9 g/dL 12/23/2014 Comp Metabolic Xyk938 TPRO 6.7 g/dL 12/23/2014 Comp Metabolic Lfl182 GLOB 2.8 g/dL 12/23/2014 Comp Metabolic Vsu657 A/G Ratio 1.4 Ratio 12/23/2014 Comp Metabolic Kkm756 Osmo 275 mOsmo 12/23/2014 Review of Systems [...] 07/17/2018 None Full Exam - General 1995 Abdomen abdominal exam Overall: no tenderness 07/17/2018 None Full Exam - General 1995 Abdomen [...] 1995 Ears/Nose/Throat oral cavity/pharynx/larynx Overall: hypopharynx benign 02/07/2017 [...] dentition 07/28/2016 None Full Exam - General 1995 [...] inspection of skin Consistency: thick 03/31/2015 left druze and left nasal bridge - actinic keratosis [...] SUBSEQ VISIT CPT- 4: G0439 05/05/2018 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 3-[address]: 863336618 CPT-4: G0436 04/11/2017 PNEUMOCOCCAL VACC [address]: 42757037 CPT-4: 03706 02/09/2017 FLU VACC PRSV FREE INC ANTIG CPT-4: 17643 02/09/2017 ADMIN INFLUENZA VIRUS VAC CPT-4: G0008 02/09/2017 ADMIN PNEUMOCOCCAL VACCINE SNOMED CT: 58421397 CPT-4: G0009 02/09/2017 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 3-[address]: 342004975 CPT-4: G0436 02/07/2017 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 3-[address]: 689033085 CPT-4: G0436 10/19/2016 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 3-[address]: 147180663 CPT-4: G0436 08/31/2016 TRIAMCINOLONE ACET INJ NOS CPT-4: J3301 08/12/2016 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 3-[address]: 089631371 CPT-4: G0436 07/28/2016 ADMIN INFLUENZA VIRUS VAC CPT-4: G0008 01/28/2016 FLU VACC 4 JULISA 3 YRS PLUS IM SNOMED CT: 19357929 CPT-4: 40915 01/28/2016 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 3-[address]: 471056359 CPT-4: G0436 07/29/2015 Vital Signs Date Vital 07/17/2018 Blood Pressure 1: 126/54 Code: 8480-6 BMI: 24.4 Code: 60369-8 Heart Rate 1: 70 bpm Height: 5'4" SpO2: 98% Weight: 142 lbs 06/05/2018 Blood Pressure 1: 122/60 Code: 8480-6 BMI: 25.4 Code: 52192-2 Heart Rate 1: 74 bpm Height: 5'4" SpO2: 98% Weight: 148 lbs 05/05/2018 Blood Pressure 1: 130/64 Code: 8480-6 BMI: 25.1 Code: 19815-9 Heart Rate 1: 72 bpm Height: 5'4" SpO2: 97% Weight: 146 lbs 04/03/2018 Blood Pressure 1: 142/80 Code: 8480-6 BMI: 25.2 Code: 57300-2 Heart Rate 1: 99 bpm Height: 5'4" SpO2: 97% Weight: 147 lbs 03/06/2018 Blood Pressure 1: 140/80 Code: 8480-6 BMI: 26.1 Code: 37930-3 Heart Rate 1: 71 bpm Height: 5'4" SpO2: 98% Weight: 152 lbs 02/22/2018 Blood Pressure 1: 146/68 Code: 8480-6 BMI: 26.6 Code: 06639-3 Heart Rate 1: 88 bpm Height: 5'4" SpO2: 97% Weight: 155 lbs 12/13/2017 Blood Pressure 1: 132/68 Code: 8480-6 BMI: 26.6 Code: 76484-9 Heart Rate 1: 72 bpm Height: 5'4" SpO2: 94% Weight: 154 lbs 14 oz 11/29/2017 Blood Pressure 1: 130/64 Code: 8480-6 BMI: 26.1 Code: 33527-0 Heart Rate 1: 81 bpm Height: 5'4" SpO2: 94% Weight: 152 lbs 10/27/2017 Blood Pressure 1: 120/62 Code: 8480-6 BMI: 25.9 Code: 01422-9 Heart Rate 1: 70 bpm Height: 5'4" SpO2: 96% Weight: 151 lbs 07/26/2017 Blood Pressure 1: 146/70 Code: 8480-6 BMI: 26.3 Code: 97590-6 Heart Rate 1: 69 bpm Height: 5'4" SpO2: 98% Weight: 153 lbs 05/26/2017 Blood Pressure 1: 142/76 Code: 8480-6 BMI: 26.4 Code: 57375-0 Heart Rate 1: 59 bpm Height: 5'4" SpO2: 99% Weight: 154 lbs 04/11/2017 Blood Pressure 1: 134/64 Code: 8480-6 BMI: 26.6 Code: 31015-7 Heart Rate 1: 65 bpm Height: 5'4" SpO2: 98% Weight: 155 lbs 02/07/2017 Blood Pressure 1: 120/72 Code: 8480-6 Heart Rate 1: 72 bpm Height: 5'4" SpO2: 96% Weight: 01/26/2017 Blood Pressure 1: 146/68 Code: 8480-6 BMI: 26.4 Code: 89791-8 Heart Rate 1: 96 bpm Height: 5'4" SpO2: 97% Weight: 154 lbs 10/19/2016 Blood Pressure 1: 144/76 Code: 8480-6 BMI: 25.8 Code: 65338-7 Heart Rate 1: 68 bpm Height: 5'4" SpO2: 96% Weight: 150 lbs 8 oz 09/22/2016 Blood Pressure 1: 122/80 Code: 8480-6 BMI: 26.1 Code: 93489-6 Heart Rate 1: 111 bpm Height: 5'4" SpO2: 97% Weight: 152 lbs 08/31/2016 Blood Pressure 1: 152/82 Code: 8480-6 BMI: 27.1 Code: 15897-4 Heart Rate 1: 118 bpm Height: 5'4" SpO2: 96% Weight: 158 lbs 08/12/2016 Blood Pressure 1: 146/78 Code: 8480-6 BMI: 26.9 Code: 41836-3 Heart Rate 1: 68 bpm Height: 5'4" SpO2: 97% Weight: 157 lbs 07/28/2016 Blood Pressure 1: 128/64 Code: 8480-6 BMI: 27.1 Code: 27065-9 Heart Rate 1: 63 bpm Height: 5'4" SpO2: 97% Weight: 158 lbs 01/28/2016 Blood Pressure 1: 130/70 Code: 8480-6 BMI: 27.3 Code: 11925-0 Heart Rate 1: 60 bpm Height: 5'4" SpO2: 95% Weight: 159 lbs 07/29/2015 Blood Pressure 1: 136/80 Code: 8480-6 BMI: 28.1 Code: 03235-5 Heart Rate 1: 68 bpm Height: 5'4" SpO2: 96% Weight: 163 lbs 8 oz 03/31/2015 Blood Pressure 1: 138/88 Code: 8480-6 BMI: 27.5 Code: 33653-7 Heart Rate 1: 72 bpm Height: 5'4" Weight: 160 lbs 12/23/2014 Blood Pressure 1: 138/68 Code: 8480-6 BMI: 27.1 Code: 45848-4 Heart Rate 1: 63 bpm Height: 5'4" [...] data Encounters Encounter Performer Location Codes Date ([id number]) [id number] EST. PATIENT, LEVEL IV Diagnosis: Essential (primary) hypertension[ICD10: I10] Diagnosis: Other iron deficiency anemias[ICD10: D50.8] Diagnosis: Tobacco abuse counseling[ICD10: Z71.6] Diagnosis: Chronic atrial fibrillation[ICD10: I48.2] [facility] CPT-4: 36001 07/17/2018 ([id number]) BEHAV CHNG SMOKING 3-10 MIN Diagnosis: [ICD9: ] Diagnosis: [ICD9: ] Diagnosis: [ICD9: ] Diagnosis: [ICD9: ] [facility] CPT-4: 53547 07/17/2018 ([id number]) 32484 EST. PATIENT, LEVEL IV Diagnosis: Other specified anemias[ICD10: D64.89] Diagnosis: Other insomnia[ICD10: G47.09] Diagnosis: Atrophy of thyroid (acquired)[ICD10: E03.4] Diagnosis: Allergic urticaria[ICD10: L50.0] Kandi Cabrera MD, [facility] CPT-4: 46553 06/05/2018 ([id number]) 36494 EST. PATIENT, LEVEL IV Diagnosis: Essential (primary) hypertension[ICD10: I10] Diagnosis: Nonrheumatic aortic (valve) stenosis[ICD10: I35.0] Diagnosis: Atrophy of thyroid (acquired)[ICD10: E03.4] Diagnosis: Chronic atrial fibrillation[ICD10: I48.2] Kandi Cabrera MD, [facility] CPT-4: 71195 04/03/2018 ([id number]) 88319 EST. PATIENT, LEVEL IV Diagnosis: Essential (primary) hypertension[ICD10: I10] Diagnosis: Chronic atrial fibrillation[ICD10: I48.2] Diagnosis: Nonrheumatic aortic (valve) stenosis[ICD10: I35.0] Diagnosis: Age-related osteoporosis without current pathological fracture[ICD10: M81.0] Kandi Cabrera MD, [facility] CPT-4: 42865 03/06/2018 35008 EST. PATIENT, LEVEL III Diagnosis: Low back pain[ICD10: M54.5] Diagnosis: Dysuria[ICD10: R30.0] Diagnosis: Gastro-esophageal reflux disease without esophagitis[ICD10: K21.9] Payton Cabrera MD, [facility] CPT-4: 79245 02/22/2018 ([id number]) 65040 EST. PATIENT, LEVEL III Diagnosis: Atrophy of thyroid (acquired)[ICD10: E03.4] Diagnosis: Other iron deficiency anemias[ICD10: D50.8] Diagnosis: Epigastric pain[ICD10: R10.13] Kandi Cabrera MD [facility] CPT-4: 21299 12/13/2017 ([id number]) 57753 EST. PATIENT, LEVEL IV Diagnosis: Diverticulitis of large intestine without perforation or abscess without bleeding[ICD10: K57.32] Kandi Cabrera MD [facility] CPT-4: 45825 11/29/2017 ([id number]) 37968 EST. PATIENT, LEVEL IV Diagnosis: Atrophy of thyroid (acquired)[ICD10: E03.4] Diagnosis: Other iron deficiency anemias[ICD10: D50.8] Diagnosis: Epigastric pain[ICD10: R10.13] Diagnosis: Right lower quadrant pain[ICD10: R10.31] Diagnosis: Left lower quadrant pain[ICD10: R10.32] Kandi Cabrera MD, [facility] CPT-4: 23257 10/27/2017 [id number] EST. PATIENT, LEVEL IV Diagnosis: Atrophy of thyroid (acquired)[ICD10: E03.4] Diagnosis: Other iron deficiency anemias[ICD10: D50.8] Diagnosis: Essential (primary) hypertension[ICD10: I10] Diagnosis: Gastro-esophageal reflux disease without esophagitis[ICD10: K21.9] Payton Cabrera MD, [facility] CPT-4: 33709 07/26/2017 ([id number]) 60716 EST. PATIENT, LEVEL IV Diagnosis: Other iron deficiency anemias[ICD10: D50.8] Diagnosis: Atrophy of thyroid (acquired)[ICD10: E03.4] Diagnosis: Tobacco use[ICD10: Z72.0] Diagnosis: Essential (primary) hypertension[ICD10: I10] Diagnosis: Low back pain[ICD10: M54.5] Kandi Cabrera MD, [facility] CPT-4: 50054 05/26/2017 ([id number]) 11369 EST. PATIENT, LEVEL IV Diagnosis: Shortness of breath[ICD10: R06.02] Diagnosis: Tobacco use[ICD10: Z72.0] Diagnosis: Chronic atrial fibrillation[ICD10: I48.2] Kandi Cabrera MD, [facility] CPT-4: 35266 04/11/2017 [id number]) 97463 EST. PATIENT, LEVEL III Diagnosis: Unsteadiness on feet[ICD10: R26.81] Diagnosis: Tobacco use[ICD10: Z72.0] Kandi Cabrera MD, [facility] CPT-4: 09625 02/07/2017 [id number]) 01009 EST. PATIENT, LEVEL IV Diagnosis: Cough[ICD10: R05] Diagnosis: Essential (primary) hypertension[ICD10: I10] Diagnosis: Chronic atrial fibrillation[ICD10: I48.2] Diagnosis: Unsteadiness on feet[ICD10: R26.81] Kandi Cabrera MD [facility] CPT- 4: 62004 01/26/2017 ([id number]) 86575 EST. PATIENT, LEVEL IV Diagnosis: Essential (primary) hypertension[ICD10: I10] Diagnosis: Atrophy of thyroid (acquired)[ICD10: E03.4] Diagnosis: Tobacco use[ICD10: Z72.0] Diagnosis: Chronic atrial fibrillation[ICD10: I48.2] Diagnosis: Mixed hyperlipidemia[ICD10: E78.2] Kandi Cabrera MD, [facility] CPT- 4: 60906 10/19/2016 ([id number]) 51969 EST. PATIENT, LEVEL IV Diagnosis: Atrophy of thyroid (acquired)[ICD10: E03.4] Diagnosis: Mixed hyperlipidemia[ICD10: E78.2] Diagnosis: Essential (primary) hypertension[ICD10: I10] Kandi Cabrera MD [facility] CPT-4: 69071 09/22/2016 ([id number]) 74759 EST. PATIENT, LEVEL IV Diagnosis: Essential (primary) hypertension[ICD10: I10] Diagnosis: Atrophy of thyroid (acquired)[ICD10: E03.4] Diagnosis: Chronic atrial fibrillation[ICD10: I48.2] Kandi Cabrera MD, [facility] CPT-4: 02216 08/31/2016 ([id number]) 74057 EST. PATIENT, LEVEL III Diagnosis: Low back pain[ICD10: M54.5] Diagnosis: Sacroiliitis, not elsewhere classified[ICD10: M46.1] Janeen Cabrera MD, [facility] CPT-4: 68949 08/12/2016 ([id number]) 54056 EST. PATIENT, LEVEL IV Diagnosis: Mixed hyperlipidemia[ICD10: E78.2] Diagnosis: Essential (primary) hypertension[ICD10: I10] Diagnosis: Atrophy of thyroid (acquired)[ICD10: E03.4] Kandi Cabrera MD, [facility] CPT-4: 83588 07/28/2016 ([id number]) 48622 EST. PATIENT, LEVEL IV Diagnosis: Hypothyroidism, unspecified[ICD10: E03.9] Diagnosis: Essential (primary) hypertension[ICD10: I10] Diagnosis: Mixed hyperlipidemia[ICD10: E78.2] Diagnosis: Cellulitis of left lower limb[ICD10: L03.116] Diagnosis: Encounter for immunization[ICD10: Z23] Kandi Cabrera MD, [facility] CPT-4: 20465 01/28/2016 ([id number]) 08498 EST. PATIENT, LEVEL IV Diagnosis: Essential (primary) hypertension[ICD10: I10] Diagnosis: Hypothyroidism, unspecified[ICD10: E03.9] Diagnosis: Diarrhea, unspecified[ICD10: R19.7] Diagnosis: Tobacco use[ICD10: Z72.0] Diagnosis: Tobacco abuse counseling[ICD10: Z71.6] Diagnosis: Other obesity due to excess calories[ICD10: E66.09] Kandi Cabrera MD, [facility] CPT-4: 64538 07/29/2015 ([id number]) 52842 EST. PATIENT, LEVEL IV Diagnosis: Essential (primary) hypertension[ICD10: I10] Diagnosis: Hypothyroidism, unspecified[ICD10: E03.9] Diagnosis: Actinic keratosis[ICD10: L57.0] Kandi Cabrera MD, [facility] CPT-4: 35770 03/31/2015 ([id number]) OFFICE VISIT, NEW - LEVEL 4 Diagnosis: ESSENTIAL HYPERTENSION[ICD9: 401.9] Diagnosis: HYPOTHYROIDISM[ICD9: 244.9] Diagnosis: HYPERLIPIDEMIA[ICD9: 272.4] Diagnosis: Osteoporosis[ICD9: 733.00] Diagnosis: OSTEOARTH NOS-UNSPEC[ICD9: 715.90] Diagnosis: Sacroiliitis[ICD9: 720.2] Kandi Cabrera MD, [facility] CPT-4: 62751 12/23/2014 Plan of Care Planned Activity Notes [...] breath, and improve her cardiovascular status. 07/17/2018 Patient Education: Patient Medication Summary Completed 07/17/2018 Patient Education: Hypertension Completed 07/17/2018 Appointment[phone] (15 min) Moderate 07/11/2018 Visit Plan: Hypothyroidism [...] hydroxyzine. 06/05/2018 Appointment: [phone] (15 min) Moderate 06/05/2018 Patient Education: Patient [...] Completed 05/05/2018 Appointment: Kandi Cabrera WPtel: [phone] [facility] (15 min) Moderate 04/11/2018 Visit Plan: Hypertension [...] not improving. 04/03/2018 Appointment: Kandi Cabrera WPtel: [phone] [facility] (15 min) Moderate 04/03/2018 Patient Education: Patient [...] a conversation about surgical intervention with her Sap Integration Architect. 03/06/2018 Appointment: Kandi Cabrera WPtel: [phone] [facility] (15 min) Moderate 03/06/2018 Patient Education: Patient [...] improving. 02/22/2018 Appointment: Payton Leon WPtel: [phone] [facility] (15 min) Moderate 02/22/2018 Patient Education: Patient Medication Summary Completed 02/22/2018 Patient Education: Back Pain Completed 02/22/2018 Visit Plan: Diarrhea - improved - pt advised to avoid seeds, nuts, popcorn, or any other food which has been proven to upset the pt's stomach. 12/13/2017 Appointment: Kandi Cabrera WPtel: [facility] (15 min) Moderate 12/13/2017 Patient Education: Patient Medication Summary Completed 12/13/2017 Visit Plan: Diverticulitis - rx for antibiotic sent to pt's pharmacy - pt advised to avoid seeds, nuts, popcorn, or any other food which has been proven to upset the pt's stomach. 11/29/2017 Appointment: Kandi Cabrera WPtel: [facility] [place] (15 min) Moderate 11/29/2017 Patient Education: Patient Medication Summary Completed 11/29/2017 Appointment: Kandi Cabrera WPtel: [facility] [place] (15 min) Moderate 11/24/2017 Visit Plan: [...] 10 days 10/27/2017 Appointment: [facility] Cab[phone] (15 min) Moderate 10/27/2017 Patient Education: Patient [...] not improving. 07/26/2017 [facility]ment[phone] (30 min) Complex 07/26/2017 Patient Education: Patient Medication Summary Completed 07/26/2017 Care Plan: Iron Pending 07/26/2017 Care Plan: Referral Order SNOMED-CT : [id number] Pending 07/26/2017 Visit Plan: Hypertension - well [...] recommended. 05/26/2017 Appointment: K[facility] Cabrera [phone] [place] (15 min) Moderate 05/26/2017 Patient Education: Patient Medication Summary Completed 05/26/2017 Patient Education: Patient Medication Summary Completed 05/19/2017 Care Plan: Iron Pending 05/19/2017 Visit Plan: Dyspnea on Exertion - uncontrolled - I have recommended pt to have Pulmonary function studies as well as a referral back to her Sap Integration Architect - Dr. Hanna - I suspect she [...] cigarettes". 04/11/2017 Appointment: [facility] Cabrera [phone] [place] (15 min) Moderate 04/11/2017 Patient Education: Patient Medication Summary Completed 04/11/2017 Patient Education: Smoking and Tobacco Addiction Completed 04/11/2017 Care Plan: Referral Order SNOMED-CT : [id number] Pending 04/11/2017 Appointment: Kandi Cabrera [phone] [place] (15 min) Moderate 02/14/2017 Appointment: Injection 02/09/2017 Referral: [facility]: [address] [facility] Patient informed. Completed 02/09/2017 Patient Education: Patient Medication Summary Completed 02/09/2017 Patient Education: Smoking and Tobacco Addiction Completed 02/09/2017 Visit Plan: Tobacco abuse - chronic condition for this patient. Patient has been counseled about need to stop smoking due to the negative health affects. Pt has vocalized understanding and states that they will con sample finisher smoking cessation, but the pt is not yet ready to use medication to assist cessation. Rx for wellbutrin 75mg 1/2 pill bid. Gait instability - referral to [facility] for gait instability 02/07/2017 Appointment: Kandi Cabrera WPtel: [address] [place], [place] [address] (15 min) Moderate 02/07/2017 Patient Education: Patient Medication Summary Completed 02/07/2017 Patient Education: Smoking and Tobacco Addiction Completed 02/07/2017 Care Plan: Referral Order SNOMED-CT : [id number] Pending 02/07/2017 Visit Plan: Cough - pt [...] becoming uncontrolled. 01/26/2017 Appointment: Kandi Cabrera WPtel: [facility]4 [facility] (15 min) Moderate 01/26/2017 Patient Education: Patient [...] per week. 10/19/2016 Appointment: Kandi Cabrera WPtel: [facility]7 [facility] (15 min) Moderate 10/19/2016 Patient Education: Patient Medication Summary Completed 10/19/2016 Patient Education: Smoking and Tobacco Addiction Completed 10/19/2016 Patient Education: Hypertension Completed 10/19/2016 Visit Plan: Atrial Fibrillation - pt on chronic anticoagulation and is not optimally rate controlled. Pt is to see her regional transfer liaison tomorrow, will discuss with him her plans [...] control. 09/22/2016 Appointment: Kandi Cabrera WPtel: [phone] [facility] (15 min) Moderate 09/22/2016 Patient Education: Patient [...] q 3 months or q 6 m onths based on previous levels of control. 08/31/2016 Appointment: Kandi Cabrera WPtel: [facility] (15 min) Moderate 08/31/2016 Patient Education: Patient Medication Summary Completed 08/31/2016 Patient Education: Smoking and Tobacco Addiction Completed 08/31/2016 Patient Education: Hypertension Completed 08/31/2016 Visit Plan: Sacroiliitis -kenalog injection today in the office- tylenol as directed-heat as directed-xray lumbar spine. Pt is to call if the symptoms do not improve or if they worsen. 08/12/2016 Appointment: Janeen Marsh WPtel[facility] (30 min) Complex 08/12/2016 Patient Education: Patient Medication Summary Completed 08/12/2016 Patient Education: Smoking and Tobacco Addiction Completed 08/12/2016 Appointment: Payton Leon [phone] [facility] [facility] - Annual Wellness Visit 07/30/2016 Visit [...] to medications. 07/28/2016 Appointment: Kandi Cabrera WPtel: [address] [place] [address] (15 min) Moderate 07/28/2016 Patient Education: Patient [...] shot today 01/28/2016 Appointment: [phone] (15 min) Moderate 01/28/2016 Patient Education: Patient [...] activity 07/29/2015 Appointment: K[facility] Cabrera [phone] [place] (15 min) Moderate 07/29/2015 Patient Education: [...] of control. A ctinic keratosis - left druze and left nasal bridge - pt to use efudex on the lesions on the nose and face. 03/31/2015 Appointment: K[facility] Cabrera [phone] (15 min) Moderate 03/31/2015 Patient Education: Patient [...] D levels. 12/23/2014 Appointment: Kandi Cabrera WPtel: [facility] [place] ([place] New Patient 12/23/2014 Patient Education: Patient Medication Summary Completed 12/23/2014 Patient Education: Hypertension Completed 12/23/2014 Care Plan: Referral Order SNOMED-CT : [id number] Ordered 12/23/2014 Referral: External, Ordering Provider Referral Completed Referral: External, Ordering Provider Referral Appointment Requested Referral: Maggi Reaves Referral Initiated Referral[facility] [facility] [place] Referral Appointment Requested Referral: External, Ordering [...] well as a referral back to her Sap Integration Architect - Dr. Hanna - I suspect she [...] pill bid. G[facility] . Hypertension [...] rate controlled. Pt is to see her regional transfer liaison tomorrow, will discuss with him her plans [...] a conversation about surgical intervention with her Sap Integration Architect. start on the synthroid 137mcg daily - [...] - start on hydroxyzine. . Hypertension - well controlled - continue [...] levels of control. Actinic keratosis - left druze and left nasal bridge - pt to [...] smoking by 1 cigarette daily per week. PROBIOTIC - Stonestreet One, UpTo, lactobacilus/acidophilis brand probiotic - these can be [...]
--- OUTSIDE RECORDS SUMMARY | 2018-12-29 13:58 | XMS REPORT | CCD ---
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 Name Role Phone PP Unavailable CCM Unavailable Summary Purpose Interface Exchange Insurance Providers Payer name Policy type / Coverage type Covered constitution party ID Effective Begin Date Effective End Date [facility] Commercial Insurance [id number] Unknown WPS Medicare Part B Commercial Insurance [id number] 2017 Unknown Family history Father Diagnosis Age [...] Unknown Retired 12/23/[address]: 27797854 Current every day smoker 12/23/2014 Number of years using tobacco Unknown > 50 trying to quit 12/23/2014 Number of cigarettes/day Unknown 10 (Half a pack) 12/23/[address]: 776349281 Never drinks alcohol 12/23/2014 Allergies, Adverse Reactions, Alerts Substance Reaction Codes Entered Date Inactivated Date Status ciprofloxacin RxNorm: 31411 05/05/2018 No Inactive Date Active SULFA(SULFONAMIDE ANTIBIOTICS) Unknown 05/05/2018 No Inactive Date Active Past Medical History Illness Codes Condition Status Onset Date Resolved Date Allergic urticaria ICD- 9: 708.0 ICD-10: L50.0 Active 06/05/2018 Unknown Anemia, unspecified ICD- 9: 285.9 ICD-10: D64.9 Active 05/19/2017 Unknown 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 Active 08/31/2016 Unknown Other insomnia ICD-9: 327.09 ICD-10: G47.09 Active 06/05/2018 Unknown Encounter for general adult medical examination with abnormal findings ICD-9: V70.0 ICD-10: Z00.01 Active 05/05/2018 Unknown Chronic atrial fibrillation ICD-9: 427.31 ICD-10: [...] ICD-10: Z71.6 Active 07/28/2015 Unknown Actinic keratosis ICD-9: 702.0 [...] Problems Condition Codes Effective Dates Condition Status Allergic urticaria ICD- 9: 708.0 ICD-10: L50.0 06/05/2018 Active Anemia, unspecified ICD- 9: 285.9 ICD-10: D64.9 05/19/2017 Active 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 08/31/2016 Active Other insomnia ICD-9: 327.09 ICD-10: G47.09 06/05/2018 Active Encounter for general adult medical examination with abnormal findings ICD-9: V70.0 ICD-10: Z00.01 05/05/2018 Active Chronic atrial fibrillation ICD-9: 427.31 ICD-10: [...] V65.42 ICD-10: Z71.6 07/28/2015 Active Actinic keratosis ICD-9: 702.0 ICD-10: [...] Start Date Stop Date Status Fill Instructions hydroxyzine HCl 25 mg tablet RxNorm: 861989 1 Tablet(s) PO QHS may increase to two pills at hs if allergic reactions are occuring 06/05/2018 2018 Active Synthroid 100 mcg tablet RxNorm: 967479 1 Tablet(s) PO daily 06/05/2018 08/28/2019 Active Lasix 20 mg tablet RxNorm: 569365 1 Tablet(s) PO daily as needed not more than one time a day 05/19/2018 09/15/2018 Active prednisone 20 mg tablet RxNorm: 401214 2 Tablet(s) PO daily 02/22/2018 02/26/2018 Inactive Cipro 500 mg tablet RxNorm: 177373 1 Tablet(s) PO BID 02/22/2018 02/28/2018 Inactive potassium chloride ER 10 mEq tablet,extended release RxNorm: 741240 1 Tablet(s) PO UD take on days that you take a lasix pill 02/13/2018 02/07/2019 Active Synthroid 100 mcg tablet RxNorm: 427767 1 Tablet(s) PO daily 02/13/2018 06/04/2018 Inactive simvastatin 20 mg tablet RxNorm: 130582 1 Tablet(s) PO QHS 01/13/2018 01/07/2019 Active metronidazole 500 mg tablet RxNorm: 556846 1 Tablet(s) PO TID 11/29/2017 12/08/2017 Inactive alendronate 70 mg tablet RxNorm: 528137 1 Tablet(s) PO weekly 11/29/2017 03/05/2018 Inactive omeprazole 40 mg capsule,delayed release RxNorm: 135579 1 Capsule(s) PO daily 11/11/2017 11/05/2018 Active Flagyl 500 mg tablet RxNorm: 615937 1 Tablet(s) PO TID 10/27/2017 11/05/2017 Inactive sucralfate 1 gram tablet RxNorm: 741066 1 Tablet(s) PO TID 07/26/2017 07/20/2018 Active fluticasone 50 mcg/actuation nasal spray,suspension RxNorm: 2351723 1 [place] NASAL daily 07/26/2017 No Stop Date Active Protonix 40 mg tablet,delayed release RxNorm: 212216 1 Tablet(s) PO daily 07/26/2017 10/23/2017 Inactive Tricor 145 mg tablet RxNorm: 447358 1 Tablet(s) PO daily 05/26/2017 05/20/2018 Inactive perphenazine-amitriptyline 2 mg-10 mg tablet RxNorm: 417397 2 Tablet(s) PO daily 05/26/2017 05/20/2018 Inactive bupropion HCl 75 mg tablet RxNorm: 897215 1/2 Tablet(s) PO BID 02/07/2017 05/07/2017 Inactive Eliquis 5 mg tablet RxNorm: 5539796 1 Tablet(s) PO BID 01/26/2017 01/20/2018 Inactive sotalol 80 mg tablet RxNorm: 1975508 1 Tablet(s) PO BID 01/26/2017 04/20/2018 Inactive potassium chloride ER 10 mEq tablet,extended release RxNorm: 627733 1 Tablet(s) PO UD take on days that you take a lasix pill 01/26/2017 01/20/2018 Inactive Synthroid 100 mcg tablet RxNorm: 328965 1 Tablet(s) PO daily 01/26/2017 02/12/2018 Inactive diltiazem ER 240 mg capsule,extended release RxNorm: 001841 1 Capsule(s) PO BID 01/26/2017 05/03/2017 Inactive Lasix 20 mg tablet RxNorm: 1 Tablet(s) PO daily as needed not more than one time a day 01/26/2017 05/25/2017 Inactive simvastatin 20 mg tablet RxNorm: 521492 1 Tablet(s) PO QHS 12/21/2016 12/15/2017 Inactive alendronate 70 mg tablet RxNorm: 498615 1 Tablet(s) PO weekly 12/21/2016 11/28/2017 Inactive omeprazole 40 mg capsule,delayed release RxNorm: 565149 1 Capsule(s) PO daily 10/19/2016 10/12/2017 Inactive metoprolol succinate ER 100 mg tablet,extended release 24 hr RxNorm: 439890 1.5 Tablet(s) PO daily 09/17/2016 10/18/2016 Inactive Dosage increased by Dr. Vazquez potassium chloride ER 10 mEq tablet,extended release RxNorm: 820645 1 Tablet(s) PO UD take on days that you take a lasix pill 08/31/2016 12/28/2016 Inactive Lasix 20 mg tablet RxNorm: 1 Tablet(s) PO daily as needed not more than one time a day 08/31/2016 12/28/2016 Inactive Kenalog 40 mg/mL suspension for injection RxNorm: 2989306 1 Milliliter(s) Inj 08/12/2016 08/12/2016 Inactive Tricor 145 mg tablet RxNorm: 975178 1 Tablet(s) PO daily 05/21/2016 05/15/2017 Inactive atenolol 25 mg tablet RxNorm: 353814 1 Tablet(s) PO daily 05/21/2016 08/30/2016 Inactive sucralfate 1 gram tablet RxNorm: 259754 1 Tablet(s) PO TID 05/21/2016 05/15/2017 Inactive enalapril maleate 10 mg tablet RxNorm: 938531 1 Tablet(s) PO daily 04/26/2016 08/30/2016 Inactive perphenazine-amitriptyline 2 mg-10 mg tablet RxNorm: 273714 2 Tablet(s) PO daily 04/26/2016 04/20/2017 Inactive fluticasone 50 mcg/actuation nasal spray,suspension RxNorm: 2092513 1 [place] NASAL daily 04/26/2016 07/25/2017 Inactive Synthroid 100 mcg tablet RxNorm: 936046 1 Tablet(s) PO daily 02/09/2016 01/25/2017 Inactive Synthroid 100 mcg tablet RxNorm: 762223 1 Tablet(s) PO daily 02/09/2016 02/08/2016 Inactive Keflex 500 mg capsule RxNorm: 867759 1 Capsule(s) PO TID 01/28/2016 02/01/2016 Inactive hydrochlorothiazide 25 mg tablet RxNorm: 934291 TAKE 1 TABLET DAILY 01/07/2016 08/30/2016 Inactive enalapril maleate 10 mg tablet RxNorm: 305314 1 Tablet(s) PO daily 12/26/2015 04/25/2016 Inactive hydrochlorothiazide 25 mg tablet RxNorm: 974877 1 Tablet(s) PO daily 12/08/2015 08/30/2016 Inactive omeprazole 40 mg capsule,delayed release RxNorm: 856565 1 Capsule(s) PO daily 12/08/2015 10/18/2016 Inactive simvastatin 20 mg tablet RxNorm: 097763 1 Tablet(s) PO QHS 11/14/2015 11/07/2016 Inactive alendronate 70 mg tablet RxNorm: 685170 1 Tablet(s) PO weekly 10/31/2015 10/24/2016 Inactive Synthroid 112 mcg tablet RxNorm: 936352 1 Tablet(s) PO daily 07/16/2015 02/08/2016 Inactive sucralfate 1 gram tablet RxNorm: 948225 1 Tablet(s) PO TID 06/17/2015 05/20/2016 Inactive perphenazine-amitriptyline 2 mg-10 mg tablet RxNorm: 517124 2 Tablet(s) PO daily 06/17/2015 04/25/2016 Inactive fluticasone 50 mcg/actuation nasal spray,suspension RxNorm: 5545173 1 [place] NASAL daily 06/17/2015 04/25/2016 Inactive fluorouracil 5 % topical cream RxNorm: 091378 APPLY 1 APPLICATION TOPICALLY TWO TIMES A DAY 06/16/2015 06/25/2015 Inactive fluticasone 50 mcg/actuation nasal spray,suspension RxNorm: 497298 1 [place] NASAL daily 06/12/2015 06/16/2015 Inactive atenolol 25 mg tablet RxNorm: 184133 1 Tablet(s) PO daily 05/14/2015 05/07/2016 Inactive Tricor 145 mg tablet RxNorm: 674464 1 Tablet(s) PO daily 04/23/2015 04/16/2016 Inactive Synthroid 125 mcg tablet RxNorm: 797961 1 Tablet(s) PO daily 03/31/2015 07/15/2015 Inactive fluorouracil 5 % topical cream RxNorm: 605631 1 Application TOP BID 03/31/2015 04/09/2015 Inactive Synthroid 137 mcg tablet RxNorm: 728121 1 Tablet(s) PO daily 12/25/2014 12/24/2014 Inactive Synthroid 137 mcg tablet RxNorm: 841481 1 Tablet(s) PO daily 12/25/2014 03/30/2015 Inactive Voltaren 1 % topical gel RxNorm: 354887 4 Gram(s) TOP QID 12/23/2014 04/21/2015 Inactive alendronate 70 mg tablet RxNorm: 476551 1 Tablet(s) PO weekly 12/23/2014 12/22/2014 Inactive alendronate 70 mg tablet RxNorm: 455095 1 Tablet(s) PO weekly 12/23/2014 10/30/2015 Inactive Fosamax 70 mg tablet RxNorm: 819624 1 Tablet(s) PO weekly QW 12/23/2014 01/27/2016 Inactive omeprazole 40 mg capsule,delayed release RxNorm: 183002 1 Capsule(s) PO daily 12/18/2014 12/07/2015 Inactive omeprazole 40 mg capsule,delayed release RxNorm: 827565 1 Capsule(s) PO daily 12/18/2014 12/17/2014 Inactive hydrochlorothiazide 25 mg tablet RxNorm: 413638 1 Tablet(s) PO daily 12/18/2014 12/17/2014 Inactive hydrochlorothiazide 25 mg tablet RxNorm: 599803 1 Tablet(s) PO daily 12/18/2014 12/07/2015 Inactive L-Lysine 1,000 mg tablet RxNorm: 110740 1 Tablet(s) PO daily No Start Date Active folic acid 400 mcg tablet RxNorm: 744645 1 Tablet(s) PO daily No Start Date Active B12 1000 mcg RxNorm: 1/2 Tablet(s) PO daily No Start Date Active Vitamin D3 1,000 unit chewable tablet RxNorm: 152184 1 Tablet(s) PO daily No Start Date Active diltiazem 120 mg tablet RxNorm: 196254 1 Tablet(s) PO daily No Start Date Active metoprolol succinate ER 100 mg tablet,extended release 24 hr RxNorm: 583111 1 Tablet(s) PO daily No Start Date 09/16/2016 Inactive enalapril maleate 10 mg tablet RxNorm: 871697 1 Tablet(s) PO daily No Start Date 12/25/2015 Inactive perphenazine-amitriptyline 2 mg-10 mg tablet RxNorm: 379447 2 Tablet(s) PO daily No Start Date 06/16/2015 Inactive sucralfate 1 gram tablet RxNorm: 686161 1 Tablet(s) PO TID No Start Date 06/16/2015 Inactive hydrochlorothiazide 25 mg tablet RxNorm: 700110 1 Tablet(s) PO daily No Start Date 08/30/2016 Inactive vitamin E (dl, acetate) 400 unit capsule RxNorm: 393724 1 Capsule(s) PO daily No Start Date 03/05/2018 Inactive sotalol 80 mg tablet RxNorm: 7345181 1 Tablet(s) PO BID No Start Date 01/25/2017 Inactive Synthroid 150 mcg tablet RxNorm: 402043 1 Tablet(s) PO daily No Start Date 12/24/2014 Inactive simvastatin 20 mg tablet RxNorm: 757514 1 Tablet(s) PO daily No Start Date 11/13/2015 Inactive Vitamin C RxNorm: PO 1000mg qd No Start Date 03/05/2018 Inactive Fosamax 70 mg tablet RxNorm: 971111 1 Tablet(s) PO weekly No Start Date 12/22/2014 Inactive Tricor 145 mg tablet RxNorm: 160034 1 Tablet(s) PO daily No Start Date 04/22/2015 Inactive diltiazem ER 180 mg capsule,24 hr,extended release RxNorm: 154038 1 Capsule(s) PO daily No Start Date 03/05/2018 Inactive diltiazem ER 240 mg capsule,extended release RxNorm: 819298 1 Capsule(s) PO BID No Start Date 01/25/2017 Inactive Eliquis 5 mg tablet RxNorm: 3161400 1 Tablet(s) PO BID No Start Date 01/25/2017 Inactive fluticasone 50 mcg/actuation nasal spray,suspension RxNorm: 226321 1 [place] NASAL daily No Start Date 06/11/2015 Inactive atenolol 25 mg tablet RxNorm: 383225 1 Tablet(s) PO daily No Start Date 05/13/2015 Inactive Medication Administered Medication Codes Instructions Start Date Status Kenalog 40 mg/mL suspension for injection RxNorm: 5202247 1Milliliter 08/12/2016 No longer Active Immunizations Vaccine Codes Date Status Influenza CVX: 141 03/21/2018 completed Influenza CVX: 141 02/09/2017 completed Pneumococcal (Adult) CVX: 133 02/09/2017 completed Influenza CVX: 141 01/28/2016 completed Zoster CVX: 121 07/22/2011 completed Pneumococcal CVX: 33 11/20/2008 completed Assessments Condition Codes Effective Dates Other insomnia ICD-10: G47.09 ICD-9: 327.09 06/05/2018 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 ICD-9: 244.8 06/05/2018 Allergic urticaria ICD-10: L50.0 ICD-9: 708.0 06/05/2018 Other specified anemias ICD-10: D64.89 ICD-9: 285.8 06/05/2018 Encounter for general adult medical examination with abnormal findings ICD-10: Z00.01 ICD-9: V70.0 05/05/2018 Chronic atrial fibrillation ICD-10: I48.2 ICD-9: 427.31 04/03/2018 Essential (primary) hypertension ICD-10: I10 ICD-9: 401.9 04/03/2018 Nonrheumatic aortic (valve) stenosis ICD-10: I35.0 ICD-9: 424.1 04/03/2018 Age-related osteoporosis without current pathological fracture ICD-10: M81.0 ICD-9: 733.00 03/06/2018 Dysuria ICD-10: R30.0 ICD-9: 788.1 02/22/2018 Low back pain ICD-10: M54.5 ICD-9: 724.2 02/22/2018 Gastro-esophageal reflux disease without esophagitis ICD-10: K21.9 ICD-9: 530.81 02/22/2018 Other iron deficiency [...] Reason For Visit Effective Dates Notes hypertension 06/05/2018 Annual Medicare Wellness Exam 05/05/2018 [...] Observation Code Item Item Code Result Date Hgb & Hct Ord65 HGB 8.1 g/dl 07/13/2018 Hgb & Hct Ord65 HCT 27.0 % 07/13/2018 Cbc With Differential Ord2 WBC 6.19 K/ul 06/21/2018 Cbc With Differential Ord2 RBC 3.13 M/ul 06/21/2018 Cbc With Differential Ord2 HGB 7.8 g/dl 06/21/2018 Cbc With Differential Ord2 Neut% 60.0 % 06/21/2018 Cbc With Differential Ord2 HCT 25.5 % 06/21/2018 Cbc With Differential Ord2 MCV 81.5 fl 06/21/2018 Cbc With Differential Ord2 Lymph% 21.8 % 06/21/2018 Cbc With Differential Ord2 [place]% 15.0 % 06/21/2018 Cbc With Differential Ord2 [...] 1.35 K/ul 06/21/2018 Cbc With Differential Ord2 [place] ABS# 0.9 K/ul 06/21/2018 Cbc With Differential [...] 24.9 pg 06/01/2018 Cbc With Differential Ord2 [place]% 12.8 % 06/01/2018 Cbc With Differential Ord2 [...] 0.81 K/ul 06/01/2018 Cbc With Differential Ord2 [place] ABS# 0.7 K/ul 06/01/2018 Cbc With Differential [...] 29.9 pg 03/17/2018 Cbc With Differential Ord2 [place]% 13.3 % 03/17/2018 Cbc With Differential Ord2 [...] 0.90 K/ul 03/17/2018 Cbc With Differential Ord2 [place] ABS# 0.8 K/ul 03/17/2018 Cbc With Differential [...] 93.5 fl 02/22/2018 Cbc With Differential Ord2 [place]% 11.5 % 02/22/2018 Cbc With Differential Ord2 [...] 0.86 K/ul 02/22/2018 Cbc With Differential Ord2 [place] ABS# 0.7 K/ul 02/22/2018 Cbc With Differential Ord2 Eos ABS# 0.2 K/ul 02/22/2018 Cbc With Differential Ord2 Baso ABS# 0.1 K/ul 02/22/2018 Tsh Ord6 TSH (3rd IS) 0.66 uIU/mL 02/22/2018 Free T4 Djx379 FREE T4 1.22 ng/dL 02/22/2018 Comp Metabolic Lor209 NA 136 mEq/L 02/22/2018 Comp Metabolic Pfc478 K 4.4 mEq/L 02/22/2018 Comp Metabolic Jjj006 CL 102 mEq/L 02/22/2018 Comp Metabolic Pme282 CO2 23.0 mEq/L 02/22/2018 Comp Metabolic Yjh775 ANION GAP 15 02/22/2018 Comp Metabolic Kci752 GLUCOSE 94 mg/dL 02/22/2018 Comp Metabolic Bnp999 Creat 1.2 mg/dL 02/22/2018 Comp Metabolic Qnu467 eGFR 46 ml/min/1.73m2 02/22/2018 Comp Metabolic Dfv762 BUN 31 mg/dL 02/22/2018 Comp Metabolic Krg384 B/C Ratio 25.8 Ratio 02/22/2018 Comp Metabolic Bzs259 CALCIUM 9.2 mg/dL 02/22/2018 Comp Metabolic Qra249 ALK PHOS 34 U/L 02/22/2018 Comp Metabolic Geb440 AST(SGOT) 18 U/L 02/22/2018 Comp Metabolic Grw831 ALT(SGPT) 8 U/L 02/22/2018 Comp Metabolic Vjw367 BILI T 0.4 mg/dL 02/22/2018 Comp Metabolic Mkx974 ALBUMIN 3.6 g/dL 02/22/2018 Comp Metabolic Cbw541 TPRO 6.2 g/dL 02/22/2018 Comp Metabolic Sdb176 GLOB 2.6 g/dL 02/22/2018 Comp Metabolic Hce408 A/G Ratio 1.4 Ratio 02/22/2018 Comp Metabolic Hhg762 Osmo 278 mOsmo 02/22/2018 Free T4 Lra987 FREE T4 1.11 ng/dL 10/27/2017 Lipid Ord30 [...] 23.3 % 10/27/2017 Cbc With Differential Ord2 [place]% 11.3 % 10/27/2017 Cbc With Differential Ord2 [...] 1.16 K/ul 10/27/2017 Cbc With Differential Ord2 [place] ABS# 0.6 K/ul 10/27/2017 Cbc With Differential Ord2 Eos ABS# 0.2 K/ul 10/27/2017 Cbc With Differential Ord2 Baso ABS# 0.0 K/ul 10/27/2017 Comp Metabolic Gei477 NA 135 mEq/L 10/27/2017 Comp Metabolic Rdr558 K 4.7 mEq/L 10/27/2017 Comp Metabolic Som769 CL 101 mEq/L 10/27/2017 Comp Metabolic Ljt582 CO2 23.0 mEq/L 10/27/2017 Comp Metabolic Opt826 ANION GAP 16 10/27/2017 Comp Metabolic Gzv823 GLUCOSE 84 mg/dL 10/27/2017 Comp Metabolic Sjc734 Creat 1.2 mg/dL 10/27/2017 Comp Metabolic Vmu416 eGFR 46 ml/min/1.73m2 10/27/2017 Comp Metabolic Czo780 BUN 30 mg/dL 10/27/2017 Comp Metabolic Job771 B/C Ratio 25.2 Ratio 10/27/2017 Comp Metabolic Baz659 CALCIUM 9.4 mg/dL 10/27/2017 Comp Metabolic Wuz973 ALK PHOS 30 U/L 10/27/2017 Comp Metabolic Vut124 AST(SGOT) 25 U/L 10/27/2017 Comp Metabolic Ppe120 ALT(SGPT) 12 U/L 10/27/2017 Comp Metabolic Lza564 BILI T 0.5 mg/dL 10/27/2017 Comp Metabolic Ijd660 ALBUMIN 3.7 g/dL 10/27/2017 Comp Metabolic Aco843 TPRO 6.5 g/dL 10/27/2017 Comp Metabolic Nkp022 GLOB 2.8 g/dL 10/27/2017 Comp Metabolic Fiy179 A/G Ratio 1.3 Ratio 10/27/2017 Comp Metabolic Rov006 Osmo 275 mOsmo 10/27/2017 Hgb & Hct Ord65 HGB 12.2 g/dl 07/29/2017 Hgb & Hct Ord65 HCT 38.8 % 07/29/2017 Tibc Ord40 Iron 79 ug/dl 07/26/2017 Tibc Ord40 UIBC 380 ug/dL 07/26/2017 Tibc Ord40 TIBC 459 ug/dL 07/26/2017 Tibc Ord40 Fe-%Sat 17.2 % 07/26/2017 Tsh Ord6 TSH (3rd IS) 0.46 uIU/mL 07/26/2017 Ferritin Ord22 FERRITIN 83.6 ng/mL 07/26/2017 Free T4 Nrw922 FREE T4 1.00 ng/dL 07/26/2017 Tibc Ord40 [...] 31.0 pg 08/02/2016 Cbc With Differential Ord2 [place]% 9.4 % 08/02/2016 Cbc With Differential Ord2 [...] 1.44 K/ul 08/02/2016 Cbc With Differential Ord2 [place] ABS# 0.7 K/ul 08/02/2016 Cbc With Differential Ord2 Eos ABS# 0.3 K/ul 08/02/2016 Cbc With Differential Ord2 Baso ABS# 0.1 K/ul 08/02/2016 Lipid Ord30 CHOL 142 mg/dL 08/02/2016 Lipid Ord30 HDL 40.0 mg/dl 08/02/2016 Lipid Ord30 TRIG 169 mg/dL 08/02/2016 Lipid Ord30 LDL 68 mg/dL 08/02/2016 Lipid Ord30 C/HDL 3.6 Ratio 08/02/2016 Comp Metabolic Raz281 NA 139 mEq/L 08/02/2016 Comp Metabolic Smu247 K 5.2 mEq/L 08/02/2016 Comp Metabolic Rlg286 CL 108 mEq/L 08/02/2016 Comp Metabolic Rog721 CO2 22.0 mEq/L 08/02/2016 Comp Metabolic Qra652 ANION GAP 14 08/02/2016 Comp Metabolic Ppj713 GLUCOSE 103 mg/dL 08/02/2016 Comp Metabolic Rdi072 Creat 1.1 mg/dL 08/02/2016 Comp Metabolic Qpk987 eGFR 54 ml/min/1.73m2 08/02/2016 Comp Metabolic Kbf327 BUN 26 mg/dL 08/02/2016 Comp Metabolic Umz816 B/C Ratio 24.8 Ratio 08/02/2016 Comp Metabolic Znc851 CALCIUM 9.4 mg/dL 08/02/2016 Comp Metabolic Zrc519 ALK PHOS 41 U/L 08/02/2016 Comp Metabolic Gbc872 AST(SGOT) 18 U/L 08/02/2016 Comp Metabolic Xdu230 ALT(SGPT) 10 U/L 08/02/2016 Comp Metabolic Yqx233 BILI T 0.3 mg/dL 08/02/2016 Comp Metabolic Yyb999 ALBUMIN 3.7 g/dL 08/02/2016 Comp Metabolic Sjk335 TPRO 6.5 g/dL 08/02/2016 Comp Metabolic Tpj030 GLOB 2.8 g/dL 08/02/2016 Comp Metabolic Xji099 A/G Ratio 1.3 Ratio 08/02/2016 Comp Metabolic Zsz594 Osmo 283 mOsmo 08/02/2016 Free T4 Ojo220 FREE T4 1.08 ng/dL 08/02/2016 Tsh Ord6 hTSH II 0.35 uIU/mL 05/13/2016 Free T4 Vwf345 FREE T4 0.78 ng/dL 05/13/2016 Free T4 Czj671 FREE T4 1.13 ng/dL 01/28/2016 Tsh Ord6 [...] 93.1 fl 07/14/2015 Cbc With Differential Ord2 [place]% 9.1 % 07/14/2015 Cbc With Differential Ord2 [...] 1.80 K/ul 07/14/2015 Cbc With Differential Ord2 [place] ABS# 0.7 K/ul 07/14/2015 Cbc With Differential [...] Ord30 C/HDL 3.0 Ratio 07/14/2015 Comp Metabolic Rgg556 NA 136 mEq/L 07/14/2015 Comp Metabolic Pux735 K 4.4 mEq/L 07/14/2015 Comp Metabolic Faz689 CL 101 mEq/L 07/14/2015 Comp Metabolic Tge778 CO2 27.0 mEq/L 07/14/2015 Comp Metabolic Fyr847 ANION GAP 12 07/14/2015 Comp Metabolic Rlo504 GLUCOSE 97 mg/dL 07/14/2015 Comp Metabolic Fmo186 Creat 1.0 mg/dL 07/14/2015 Comp Metabolic Ecm426 eGFR 56 ml/min/1.73m2 07/14/2015 Comp Metabolic Gkd631 BUN 27 mg/dL 07/14/2015 Comp Metabolic Klm403 B/C Ratio 26.7 Ratio 07/14/2015 Comp Metabolic Phd084 CALCIUM 9.3 mg/dL 07/14/2015 Comp Metabolic Fxs773 ALK PHOS 33 U/L 07/14/2015 Comp Metabolic Tyo401 AST(SGOT) 14 U/L 07/14/2015 Comp Metabolic Qet974 ALT(SGPT) 8 U/L 07/14/2015 Comp Metabolic Uxc574 BILI T 0.4 mg/dL 07/14/2015 Comp Metabolic Fhh403 ALBUMIN 3.8 g/dL 07/14/2015 Comp Metabolic Ums695 TPRO 6.6 g/dL 07/14/2015 Comp Metabolic Wez455 GLOB 2.8 g/dL 07/14/2015 Comp Metabolic Asb148 A/G Ratio 1.4 Ratio 07/14/2015 Comp Metabolic Tjm451 Osmo 277 mOsmo 07/14/2015 Tsh Ord6 hTSH II 0.23 uIU/mL 07/14/2015 Free T4 Hbi666 FREE T4 1.19 ng/dL 07/14/2015 Cbc With [...] Ord30 C/HDL 3.4 Ratio 03/26/2015 Comp Metabolic Dpt764 NA 135 mEq/L 03/26/2015 Comp Metabolic Jjx259 K 5.0 mEq/L 03/26/2015 Comp Metabolic Tyd001 CL 99 mEq/L 03/26/2015 Comp Metabolic Tcz604 CO2 27.0 mEq/L 03/26/2015 Comp Metabolic Dzw830 ANION GAP 14 03/26/2015 Comp Metabolic Esf261 GLUCOSE 88 mg/dL 03/26/2015 Comp Metabolic Ioc308 Creat 1.1 mg/dL 03/26/2015 Comp Metabolic Zmc391 eGFR 50 ml/min/1.73m2 03/26/2015 Comp Metabolic Drh393 BUN 27 mg/dL 03/26/2015 Comp Metabolic Wgv964 B/C Ratio 24.1 Ratio 03/26/2015 Comp Metabolic Cyl523 CALCIUM 9.9 mg/dL 03/26/2015 Comp Metabolic Ksb743 ALK PHOS 30 U/L 03/26/2015 Comp Metabolic Oix885 AST(SGOT) 16 U/L 03/26/2015 Comp Metabolic Ovh088 ALT(SGPT) 8 U/L 03/26/2015 Comp Metabolic Xhp220 BILI T 0.4 mg/dL 03/26/2015 Comp Metabolic Jpc867 ALBUMIN 3.9 g/dL 03/26/2015 Comp Metabolic Qmp043 TPRO 6.4 g/dL 03/26/2015 Comp Metabolic Tdz961 GLOB 2.5 g/dL 03/26/2015 Comp Metabolic Jcx250 A/G Ratio 1.6 Ratio 03/26/2015 Comp Metabolic Vti959 Osmo 275 mOsmo 03/26/2015 Free T4 Ety764 FREE T4 1.22 ng/dL 03/26/2015 Tsh Ord6 hTSH II 0.20 uIU/mL 03/26/2015 Vitamin D 25 Oh Nvy5123 VITAMIN D, 25 HYDROXY 51.09 ng/mL 12/25/2014 Tsh Ord6 hTSH II 0.09 uIU/mL 12/23/2014 Free T4 Duu836 FREE T4 1.30 ng/dL 12/23/2014 Comp Metabolic Cjd528 NA 135 mEq/L 12/23/2014 Comp Metabolic Bmt448 K 4.7 mEq/L 12/23/2014 Comp Metabolic Srw270 CL 100 mEq/L 12/23/2014 Comp Metabolic Nnb670 CO2 23.0 mEq/L 12/23/2014 Comp Metabolic Fwa539 ANION GAP 17 12/23/2014 Comp Metabolic Cru493 GLUCOSE 93 mg/dL 12/23/2014 Comp Metabolic Hyw826 Creat 1.1 mg/dL 12/23/2014 Comp Metabolic Zal871 eGFR 53 ml/min/1.73m2 12/23/2014 Comp Metabolic Npp104 BUN 26 mg/dL 12/23/2014 Comp Metabolic Vgg532 B/C Ratio 24.3 Ratio 12/23/2014 Comp Metabolic Dnw104 CALCIUM 9.5 mg/dL 12/23/2014 Comp Metabolic Vcs949 ALK PHOS 27 U/L 12/23/2014 Comp Metabolic Hgq084 AST(SGOT) 16 U/L 12/23/2014 Comp Metabolic Foo589 ALT(SGPT) 8 U/L 12/23/2014 Comp Metabolic Qyy585 BILI T 0.4 mg/dL 12/23/2014 Comp Metabolic Fby072 ALBUMIN 3.9 g/dL 12/23/2014 Comp Metabolic Vxh406 TPRO 6.7 g/dL 12/23/2014 Comp Metabolic Gij192 GLOB 2.8 g/dL 12/23/2014 Comp Metabolic Yqv569 A/G Ratio 1.4 Ratio 12/23/2014 Comp Metabolic Frw098 Osmo 275 mOsmo 12/23/2014 Review of Systems System Result Effective Dates Constitutional No recent illness 06/05/2018 Constitutional No [...] normal 10/27/2017 None Full Exam - General 1995 Eyes pupils and irises Overall: pupils equal, [...] None Full Exam - General 1995 Ears/Nose/Throat otoscopic exam Overall: tympanic membranes clear [...] inspection of skin Consistency: thick 03/31/2015 left yazdanism and left nasal bridge - actinic keratosis [...] SUBSEQ VISIT CPT- 4: G0439 05/05/2018 TOBACCO-USE HOG RIBBER 3-[address]: 309927699 CPT-4: G0436 04/11/2017 PNEUMOCOCCAL VACC [address]: 36379317 CPT-4: 35823 02/09/2017 FLU VACC PRSV FREE INC ANTIG CPT-4: 66304 02/09/2017 ADMIN INFLUENZA VIRUS VAC CPT-4: G0008 02/09/2017 ADMIN PNEUMOCOCCAL VACCINE SNOMED CT: 04901993 CPT-4: G0009 02/09/2017 TOBACCO-USE HOG RIBBER 3-[address]: 329410101 CPT-4: G0436 02/07/2017 TOBACCO-USE HOG RIBBER 3-[address]: 555051147 CPT-4: G0436 10/19/2016 TOBACCO-USE HOG RIBBER 3-[address]: 548969029 CPT-4: G0436 08/31/2016 TRIAMCINOLONE ACET INJ NOS CPT-4: J3301 08/12/2016 TOBACCO-USE HOG RIBBER 3-[address]: 122938545 CPT-4: G0436 07/28/2016 ADMIN INFLUENZA VIRUS VAC CPT-4: G0008 01/28/2016 FLU VACC 4 JULISA 3 YRS PLUS IM SNOMED CT: 89946322 CPT-4: 84682 01/28/2016 TOBACCO-USE HOG RIBBER 3-[address]: 053107768 CPT-4: G0436 07/29/2015 Vital Signs Date Vital 06/05/2018 Blood Pressure 1: 122/60 Code: 8480-6 BMI: 25.4 Code: 45892-2 Heart Rate 1: 74 bpm Height: 5'4" SpO2: 98% Weight: 148 lbs 05/05/2018 Blood Pressure 1: 130/64 Code: 8480-6 BMI: 25.1 Code: 14800-7 Heart Rate 1: 72 bpm Height: 5'4" SpO2: 97% Weight: 146 lbs 04/03/2018 Blood Pressure 1: 142/80 Code: 8480-6 BMI: 25.2 Code: 36887-1 Heart Rate 1: 99 bpm Height: 5'4" SpO2: 97% Weight: 147 lbs 03/06/2018 Blood Pressure 1: 140/80 Code: 8480-6 BMI: 26.1 Code: 92186-3 Heart Rate 1: 71 bpm Height: 5'4" SpO2: 98% Weight: 152 lbs 02/22/2018 Blood Pressure 1: 146/68 Code: 8480-6 BMI: 26.6 Code: 54163-9 Heart Rate 1: 88 bpm Height: 5'4" SpO2: 97% Weight: 155 lbs 12/13/2017 Blood Pressure 1: 132/68 Code: 8480-6 BMI: 26.6 Code: 64122-3 Heart Rate 1: 72 bpm Height: 5'4" SpO2: 94% Weight: 154 lbs 14 oz 11/29/2017 Blood Pressure 1: 130/64 Code: 8480-6 BMI: 26.1 Code: 73213-9 Heart Rate 1: 81 bpm Height: 5'4" SpO2: 94% Weight: 152 lbs 10/27/2017 Blood Pressure 1: 120/62 Code: 8480-6 BMI: 25.9 Code: 51148-8 Heart Rate 1: 70 bpm Height: 5'4" SpO2: 96% Weight: 151 lbs 07/26/2017 Blood Pressure 1: 146/70 Code: 8480-6 BMI: 26.3 Code: 34130-5 Heart Rate 1: 69 bpm Height: 5'4" SpO2: 98% Weight: 153 lbs 05/26/2017 Blood Pressure 1: 142/76 Code: 8480-6 BMI: 26.4 Code: 37226-6 Heart Rate 1: 59 bpm Height: 5'4" SpO2: 99% Weight: 154 lbs 04/11/2017 Blood Pressure 1: 134/64 Code: 8480-6 BMI: 26.6 Code: 20359-4 Heart Rate 1: 65 bpm Height: 5'4" SpO2: 98% Weight: 155 lbs 02/07/2017 Blood Pressure 1: 120/72 Code: 8480-6 Heart Rate 1: 72 bpm Height: 5'4" SpO2: 96% Weight: 01/26/2017 Blood Pressure 1: 146/68 Code: 8480-6 BMI: 26.4 Code: 18026-2 Heart Rate 1: 96 bpm Height: 5'4" SpO2: 97% Weight: 154 lbs 10/19/2016 Blood Pressure 1: 144/76 Code: 8480-6 BMI: 25.8 Code: 32668-5 Heart Rate 1: 68 bpm Height: 5'4" SpO2: 96% Weight: 150 lbs 8 oz 09/22/2016 Blood Pressure 1: 122/80 Code: 8480-6 BMI: 26.1 Code: 61388-6 Heart Rate 1: 111 bpm Height: 5'4" SpO2: 97% Weight: 152 lbs 08/31/2016 Blood Pressure 1: 152/82 Code: 8480-6 BMI: 27.1 Code: 13871-0 Heart Rate 1: 118 bpm Height: 5'4" SpO2: 96% Weight: 158 lbs 08/12/2016 Blood Pressure 1: 146/78 Code: 8480-6 BMI: 26.9 Code: 42092-3 Heart Rate 1: 68 bpm Height: 5'4" SpO2: 97% Weight: 157 lbs 07/28/2016 Blood Pressure 1: 128/64 Code: 8480-6 BMI: 27.1 Code: 61620-0 Heart Rate 1: 63 bpm Height: 5'4" SpO2: 97% Weight: 158 lbs 01/28/2016 Blood Pressure 1: 130/70 Code: 8480-6 BMI: 27.3 Code: 36539-1 Heart Rate 1: 60 bpm Height: 5'4" SpO2: 95% Weight: 159 lbs 07/29/2015 Blood Pressure 1: 136/80 Code: 8480-6 BMI: 28.1 Code: 97788-4 Heart Rate 1: 68 bpm Height: 5'4" SpO2: 96% Weight: 163 lbs 8 oz 03/31/2015 Blood Pressure 1: 138/88 Code: 8480-6 BMI: 27.5 Code: 81222-5 Heart Rate 1: 72 bpm Height: 5'4" Weight: 160 lbs 12/23/2014 Blood Pressure 1: 138/68 Code: 8480-6 BMI: 27.1 Code: 95568-8 Heart Rate 1: 63 bpm Height: 5'4" SpO2: 94% Weight: 158 lbs Functional Status No Functional Status data History of Present Illness Symptom Name Status Result Effective Date Notes Quality chronic 06/05/2018 None Quality intermittent 06/05/2018 [...] data Encounters Encounter Performer Location Codes Date ([id number]) [id number] EST. PATIENT, LEVEL IV Diagnosis: Other specified anemias[ICD10: D64.89] Diagnosis: Other insomnia[ICD10: G47.09] Diagnosis: Atrophy of thyroid (acquired)[ICD10: E03.4] Diagnosis: Allergic urticaria[ICD10: L50.0] Kandi Cabrera MD, [facility] CPT-4: 21979 06/05/2018 ([id number]) 13034 EST. PATIENT, LEVEL IV Diagnosis: Essential (primary) hypertension[ICD10: I10] Diagnosis: Nonrheumatic aortic (valve) stenosis[ICD10: I35.0] Diagnosis: Atrophy of thyroid (acquired)[ICD10: E03.4] Diagnosis: Chronic atrial fibrillation[ICD10: I48.2] Kandi Cabrera MD, [facility] CPT-4: 65965 04/03/2018 [id number]) 87127 EST. PATIENT, LEVEL IV Diagnosis: Essential (primary) hypertension[ICD10: I10] Diagnosis: Chronic atrial fibrillation[ICD10: I48.2] Diagnosis: Nonrheumatic aortic (valve) stenosis[ICD10: I35.0] Diagnosis: Age-related osteoporosis without current pathological fracture[ICD10: M81.0] Kandi Cabrera MD, [facility] CPT-4: 17239 03/06/2018 27945 EST. PATIENT, LEVEL III Diagnosis: Low back pain[ICD10: M54.5] Diagnosis: Dysuria[ICD10: R30.0] Diagnosis: Gastro-esophageal reflux disease without esophagitis[ICD10: K21.9] [facility] CPT-4: 84106 02/22/2018 [id number]) 17086 EST. PATIENT, LEVEL III Diagnosis: Atrophy of thyroid (acquired)[ICD10: E03.4] Diagnosis: Other iron deficiency anemias[ICD10: D50.8] Diagnosis: Epigastric pain[ICD10: R10.13] Kandi Cabrera MD, [facility] CPT-4: 96496 12/13/2017 ([id number]) 07218 EST. PATIENT, LEVEL IV Diagnosis: Diverticulitis of large intestine without perforation or abscess without bleeding[ICD10: K57.32] Kandi Cabrera MD, [facility] CPT-4: 20539 11/29/2017 ([id number]) 66293 EST. PATIENT, LEVEL IV Diagnosis: Atrophy of thyroid (acquired)[ICD10: E03.4] Diagnosis: Other iron deficiency anemias[ICD10: D50.8] Diagnosis: Epigastric pain[ICD10: R10.13] Diagnosis: Right lower quadrant pain[ICD10: R10.31] Diagnosis: Left lower quadrant pain[ICD10: R10.32] Kandi Cabrera MD, [facility] CPT-4: 61005 10/27/2017 01494 EST. PATIENT, LEVEL IV Diagnosis: Atrophy of thyroid (acquired)[ICD10: E03.4] Diagnosis: Other iron deficiency anemias[ICD10: D50.8] Diagnosis: Essential (primary) hypertension[ICD10: I10] Diagnosis: Gastro-esophageal reflux disease without esophagitis[ICD10: K21.9] Payton Cabrera MD, [facility] CPT-4: 38232 07/26/2017 ([id number]) 42992 EST. PATIENT, LEVEL IV Diagnosis: Other iron deficiency anemias[ICD10: D50.8] Diagnosis: Atrophy of thyroid (acquired)[ICD10: E03.4] Diagnosis: Tobacco use[ICD10: Z72.0] Diagnosis: Essential (primary) hypertension[ICD10: I10] Diagnosis: Low back pain[ICD10: M54.5] Kandi Cabrera MD, [facility] CPT-4: 25722 05/26/2017 ([id number]) 38191 EST. PATIENT, LEVEL IV Diagnosis: Shortness of breath[ICD10: R06.02] Diagnosis: Tobacco use[ICD10: Z72.0] Diagnosis: Chronic atrial fibrillation[ICD10: I48.2] Kandi Cabrera MD, [facility] CPT-4: 84001 04/11/2017 ([id number]) 10526 EST. PATIENT, LEVEL III Diagnosis: Unsteadiness on feet[ICD10: R26.81] Diagnosis: Tobacco use[ICD10: Z72.0] Kandi Cabrera MD, [facility] CPT-4: 01075 02/07/2017 ([id number]) 48357 EST. PATIENT, LEVEL IV Diagnosis: Cough[ICD10: R05] Diagnosis: Essential (primary) hypertension[ICD10: I10] Diagnosis: Chronic atrial fibrillation[ICD10: I48.2] Diagnosis: Unsteadiness on feet[ICD10: R26.81] Kandi Cabrera MD, [facility] CPT- 4: 19566 01/26/2017 ([id number]) 08544 EST. PATIENT, LEVEL IV Diagnosis: Essential (primary) hypertension[ICD10: I10] Diagnosis: Atrophy of thyroid (acquired)[ICD10: E03.4] Diagnosis: Tobacco use[ICD10: Z72.0] Diagnosis: Chronic atrial fibrillation[ICD10: I48.2] Diagnosis: Mixed hyperlipidemia[ICD10: E78.2] Kandi Cabrera MD, [facility] CPT- 4: 86583 10/19/2016 ([id number]) 34119 EST. PATIENT, LEVEL IV Diagnosis: Atrophy of thyroid (acquired)[ICD10: E03.4] Diagnosis: Mixed hyperlipidemia[ICD10: E78.2] Diagnosis: Essential (primary) hypertension[ICD10: I10] Kandi Cabrera MD, [facility] CPT-4: 11318 09/22/2016 ([id number]) 33386 EST. PATIENT, LEVEL IV Diagnosis: Essential (primary) hypertension[ICD10: I10] Diagnosis: Atrophy of thyroid (acquired)[ICD10: E03.4] Diagnosis: Chronic atrial fibrillation[ICD10: I48.2] Kandi Cabrera MD, [facility] CPT-4: 79205 08/31/2016 ([id number]) 84676 EST. PATIENT, LEVEL III Diagnosis: Low back pain[ICD10: M54.5] Diagnosis: Sacroiliitis, not elsewhere classified[ICD10: M46.1] Janeen Cabrera MD, [facility] CPT-4: 72653 08/12/2016 ([id number]) 89495 EST. PATIENT, LEVEL IV Diagnosis: Mixed hyperlipidemia[ICD10: E78.2] Diagnosis: Essential (primary) hypertension[ICD10: I10] Diagnosis: Atrophy of thyroid (acquired)[ICD10: E03.4] [facility] CPT-4: 46641 07/28/2016 [id number]) 13053 EST. PATIENT, LEVEL IV Diagnosis: Hypothyroidism, unspecified[ICD10: E03.9] Diagnosis: Essential (primary) hypertension[ICD10: I10] Diagnosis: Mixed hyperlipidemia[ICD10: E78.2] Diagnosis: Cellulitis of left lower limb[ICD10: L03.116] Diagnosis: Encounter for immunization[ICD10: Z23] Kandi Cabrera MD, [facility] CPT-4: 46506 01/28/2016 ([id number] 19054 EST. PATIENT, LEVEL IV Diagnosis: Essential (primary) hypertension[ICD10: I10] Diagnosis: Hypothyroidism, unspecified[ICD10: E03.9] Diagnosis: Diarrhea, unspecified[ICD10: R19.7] Diagnosis: Tobacco use[ICD10: Z72.0] Diagnosis: Tobacco abuse counseling[ICD10: Z71.6] Diagnosis: Other obesity due to excess calories[ICD10: E66.09] Kandi Cabrera MD, [facility] CPT-4: 87033 07/29/2015 [id number]) 43203 EST. PATIENT, LEVEL IV Diagnosis: Essential (primary) hypertension[ICD10: I10] Diagnosis: Hypothyroidism, unspecified[ICD10: E03.9] Diagnosis: Actinic keratosis[ICD10: L57.0] [facility] CPT-4: 81419 03/31/2015 ([id number]) OFFICE VISIT, NEW - LEVEL 4 Diagnosis: ESSENTIAL HYPERTENSION[ICD9: 401.9] Diagnosis: HYPOTHYROIDISM[ICD9: 244.9] Diagnosis: HYPERLIPIDEMIA[ICD9: 272.4] Diagnosis: Osteoporosis[ICD9: 733.00] Diagnosis: OSTEOARTH NOS-UNSPEC[ICD9: 715.90] Diagnosis: Sacroiliitis[ICD9: 720.2] [facility] CPT-4: 49787 12/23/2014 Plan of Care Planned Activity Notes Codes Status Date Appointment: Kandi Cabrera WPtel: [address] [place], [place] [phone] (15 min) Moderate 07/11/2018 Visit Plan: Hypothyroidism [...] hydroxyzine. 06/05/2018 Appointment: Kandi Cabrera WPtel: [phone] [id number] (15 min) Moderate 06/05/2018 Patient Education: Patient [...] Completed 05/05/2018 Appointment: Kandi Cabrera WPtel: [phone] [id number] (15 min) Moderate 04/11/2018 Visit Plan: Hypertension [...] improving. 04/03/2018 Appointment: [id number] (15 min) Moderate 04/03/2018 Patient Education: Patient [...] a conversation about surgical intervention with her Ingredient Mixer. 03/06/2018 Appointment: Kandi Cabrera [facility]el: [id number] [place] (15 min) Moderate 03/06/2018 Patient Education: [...] improving. 02/22/2018 Appointment: Payton Leon WPtel: [phone] [facility] (15 min) Moderate 02/22/2018 Patient Education: Patient Medication Summary Completed 02/22/2018 Patient Education: Back Pain Completed 02/22/2018 Visit Plan: Diarrhea - improved - pt advised to avoid seeds, nuts, popcorn, or any other food which has been proven to upset the pt's stomach. 12/13/2017 Appointment: Kandi Cabrera WPtel: [phone] [id number] (15 min) Moderate 12/13/2017 Patient Education: Patient Medication Summary Completed 12/13/2017 Visit Plan: Diverticulitis - rx for antibiotic sent to pt's pharmacy - pt advised to avoid seeds, nuts, popcorn, or any other food which has been proven to upset the pt's stomach. 11/29/2017 Appointment: Kandi Cabrera WPtel: [phone] [id number] (15 min) Moderate 11/29/2017 Patient Education: Patient Medication Summary Completed 11/29/2017 Appointment: Kandi Cabrera WPtel: [id number] (15 min) Moderate 11/24/2017 Visit Plan: Abdominal [...] days 10/27/2017 Appointment: [facility] Cabrera [id number] (15 min) Moderate 10/27/2017 Patient Education: Patient [...] improving. 07/26/2017 Appointment: [phone] (30 min) Complex 07/26/2017 Patient Education: Patient Medication Summary Completed 07/26/2017 Care Plan: Iron Pending 07/26/2017 Care Plan: Referral Order SNOMED-CT : [id number] Pending 07/26/2017 Visit Plan: Hypertension - well [...] Appointment: Kandi Cabrera [facility]el[id number] (15 min) Moderate 05/26/2017 Patient Education: Patient Medication Summary Completed 05/26/2017 Patient Education: Patient Medication Summary Completed 05/19/2017 Care Plan: Iron Pending 05/19/2017 Visit Plan: Dyspnea on Exertion - uncontrolled - I have recommended pt to have Pulmonary function studies as well as a referral back to her Ingredient Mixer - Dr. Hanna - I suspect she [...] cigarettes". 04/11/2017 Appointment: Kandi Cabrera [facility]el[id number] (15 min) Moderate 04/11/2017 Patient Education: Patient Medication Summary Completed 04/11/2017 Patient Education: Smoking and Tobacco Addiction Completed 04/11/2017 Care Plan: Referral Order SNOMED-CT : [id number] Pending 04/11/2017 Appointment: Kandi Cabrera [facility]Ptel: [id number] (15 min) Moderate 02/14/2017 Appointment: David 02/09/2017 [phone] Patient informed. Completed 02/09/2017 Patient Education: Patient Medication Summary Completed 02/09/2017 Patient Education: Smoking and Tobacco Addiction Completed 02/09/2017 Visit Plan: Tobacco abuse - chronic condition for this patient. Patient has been counseled about need to stop smoking due to the negative health affects. 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 Rx for wellbutrin 75mg 1/2 pill bid. Gait instability - referral to [facility] for gait instability 02/07/2017 Appointment: Kandi Cabrera [facility]Ptel[id number] (15 min) Moderate 02/07/2017 Patient Education: Patient Medication Summary Completed 02/07/2017 Patient Education: Smoking and Tobacco Addiction Completed 02/07/2017 Care Plan: Referral Order SNOMED-CT : [id number] Pending 02/07/2017 Visit Plan: Cough - pt [...] becoming uncontrolled. 01/26/2017 Appointment: Kandi Cabrera [facility]Ptel: [id number] (15 min) Moderate 01/26/2017 Patient Education: Patient [...] week. 10/19/2016 Appointment: Kandi Cabrera WPtel: [phone] [facility] (15 min) Moderate 10/19/2016 Patient Education: Patient Medication Summary Completed 10/19/2016 Patient Education: Smoking and Tobacco Addiction Completed 10/19/2016 Patient Education: Hypertension Completed 10/19/2016 Visit Plan: Atrial Fibrillation - pt on chronic anticoagulation and is not optimally rate controlled. Pt is to see her heading pinner tomorrow, will discuss with him her plans [...] control. 09/22/2016 Appointment: Kandi Cabrera WPtel: [phone] [facility] (15 min) Moderate 09/22/2016 Patient Education: Patient [...] q 3 months [facility] levels of control. 08/31/2016 Appointment: Kandi Cabrera WPtel: [facility]5 [id number] (15 min) Moderate 08/31/2016 Patient Education: Patient Medication Summary Completed 08/31/2016 Patient Education: Smoking and Tobacco Addiction Completed 08/31/2016 Patient Education: Hypertension Completed 08/31/2016 Visit Plan: Sacroiliitis -kenalog injection today in the office- tylenol as directed-heat as directed-xray lumbar spine. Pt is to call if the symptoms do not improve or if they worsen. 08/12/2016 Appointment: Janeen Marsh WPtel: [address] [place], [place] [phone] (30 min) Complex 08/12/2016 Patient Education: Patient Medication Summary Completed 08/12/2016 Patient Education: Smoking and Tobacco Addiction Completed 08/12/2016 Appointment: Payton Leon WPtel: [address] [place], [place] [phone] [facility] - Annual Wellness [...] Appointment: Kandi Cabrera WPtel: [id number] [place] (15 min) Moderate 07/28/2016 Patient Education: [...] today 01/28/2016 Appointment: Kandi Cabrera WPtel: [phone] [facility] (15 min) Moderate 01/28/2016 Patient Education: Patient [...] activity 07/29/2015 Appointment: Kandi Cabrera WPtel: [phone] [facility] [place] (15 min) Moderate 07/29/2015 Patient Education: [...] of control. A ctinic keratosis - left yazdanism and left nasal bridge - pt to use efudex on the lesions on the nose and face. 03/31/2015 Appointment: Kandi Cabrera WPtel: [id number] (15 min) Moderate 03/31/2015 Patient Education: Patient [...] D levels. 12/23/2014 Appointment: Kandi Cabrera WPtel: [address] [place], [place] [id number] [place] ([place]) New Patient 12/23/2014 Patient Education: Patient Medication Summary Completed 12/23/2014 Patient Education: Hypertension Completed 12/23/2014 Care Plan: Referral Order SNOMED-CT : [id number] Ordered 12/23/2014 Referral: External, Ordering Provider Referral Completed Referral: External, Ordering Provider Referral Appointment Requested Referral: Maggi Reaves Referral Initiated Referral[phone] Referral Appointment Requested Referral: External, Ordering [...] levels of control. Actinic keratosis - left yazdanism and left nasal bridge - pt to use efudex on the lesions on the nose and face. PROBIOTIC - kathy, [employer], lactobacilus/acidophilis brand probiotic - these can be [...] cessation Overweight - need to increase activity hold the tricor for the next week [...] keflex sent to pharmacy flu shot today Will culture your urine to make sure [...] well as a referral back to her Ingredient Mixer - Dr. Hanna - I suspect she [...] or venu daily, call if not improving. xray lumbar spine tylenol 2 tabs three [...] a conversation about surgical intervention with her Ingredient Mixer. . Diverticulitis - rx for antibiotic sent to pt's pharmacy - pt advised to avoid seeds, nuts, popcorn, or any other food which has been proven to upset the pt's stomach. . Atrial Fibrillation - pt on chronic anticoagulation and is not optimally rate controlled. Pt is to see her heading pinner tomorrow, will discuss with him her plans [...] three times daily x 10 days . Medicare Exam - today we discussed [...]
--- OUTSIDE RECORDS SUMMARY | 2018-12-29 14:02 | XMS REPORT | CCD ---
Author Author Kandi Cabrera MD, [facility] Address [address] [place] [address] Phone Care Team Providers Care Counter Caser Name Role Phone PP Unavailable CCM Unavailable Summary Purpose Interface Exchange Insurance Providers Payer name Policy type / Coverage type Covered republican ID Effective Begin Date Effective End Date [facility] Commercial Insurance [id number] Unknown WPS Medicare Part B Commercial Insurance [id number] 2017 Unknown Family history Father Diagnosis Age [...] Unknown Retired 12/23/[address]: 19861744 Current every day smoker 12/23/2014 Number of years using tobacco Unknown > 50 trying to quit 12/23/2014 Number of cigarettes/day Unknown 10 (Half a pack) 12/23/[address]: 197024229 Never drinks alcohol 12/23/2014 Allergies, Adverse Reactions, Alerts Substance Reaction Codes Entered Date Inactivated Date Status ciprofloxacin RxNorm: 53385 05/05/2018 No Inactive Date Active SULFA(SULFONAMIDE ANTIBIOTICS) [...] Instructions hydroxyzine HCl 25 mg tablet RxNorm: 325567 1 Tablet(s) PO QHS may increase to two pills at hs if allergic reactions are occuring 06/05/2018 2018 Active Synthroid 100 mcg tablet RxNorm: 584690 1 Tablet(s) PO daily 06/05/2018 08/28/2019 Active Lasix 20 mg tablet RxNorm: 781919 1 Tablet(s) PO daily as needed not more than one time a day 05/19/2018 09/15/2018 Active prednisone 20 mg tablet RxNorm: 942325 2 Tablet(s) PO daily 02/22/2018 02/26/2018 Inactive Cipro 500 mg tablet RxNorm: 547277 1 Tablet(s) PO BID 02/22/2018 02/28/2018 Inactive potassium chloride ER 10 mEq tablet,extended release RxNorm: 201315 1 Tablet(s) PO UD take on days that you take a lasix pill 02/13/2018 02/07/2019 Active Synthroid 100 mcg tablet RxNorm: 905952 1 Tablet(s) PO daily 02/13/2018 06/04/2018 Inactive simvastatin 20 mg tablet RxNorm: 864893 1 Tablet(s) PO QHS 01/13/2018 01/07/2019 Active metronidazole 500 mg tablet RxNorm: 893870 1 Tablet(s) PO TID 11/29/2017 12/08/2017 Inactive alendronate 70 mg tablet RxNorm: 123891 1 Tablet(s) PO weekly 11/29/2017 03/05/2018 Inactive omeprazole 40 mg capsule,delayed release RxNorm: 630779 1 Capsule(s) PO daily 11/11/2017 11/05/2018 Active Flagyl 500 mg tablet RxNorm: 933358 1 Tablet(s) PO TID 10/27/2017 11/05/2017 Inactive sucralfate 1 gram tablet RxNorm: 233809 1 Tablet(s) PO TID 07/26/2017 07/20/2018 Active fluticasone 50 mcg/actuation nasal spray,suspension RxNorm: 6100760 1 [place] NASAL daily 07/26/2017 No Stop Date Active Protonix 40 mg tablet,delayed release RxNorm: 197730 1 Tablet(s) PO daily 07/26/2017 10/23/2017 Inactive Tricor 145 mg tablet RxNorm: 136147 1 Tablet(s) PO daily 05/26/2017 05/20/2018 Inactive perphenazine-amitriptyline 2 mg-10 mg tablet RxNorm: 874362 2 Tablet(s) PO daily 05/26/2017 05/20/2018 Inactive bupropion HCl 75 mg tablet RxNorm: 338696 1/2 Tablet(s) PO BID 02/07/2017 05/07/2017 Inactive Eliquis 5 mg tablet RxNorm: 3844346 1 Tablet(s) PO BID 01/26/2017 01/20/2018 Inactive sotalol 80 mg tablet RxNorm: 2899546 1 Tablet(s) PO BID 01/26/2017 04/20/2018 Inactive potassium chloride ER 10 mEq tablet,extended release RxNorm: 554460 1 Tablet(s) PO UD take on days that you take a lasix pill 01/26/2017 01/20/2018 Inactive Synthroid 100 mcg tablet RxNorm: 229737 1 Tablet(s) PO daily 01/26/2017 02/12/2018 Inactive diltiazem ER 240 mg capsule,extended release RxNorm: 212084 1 Capsule(s) PO BID 01/26/2017 05/03/2017 Inactive Lasix 20 mg tablet RxNorm: 1 Tablet(s) PO daily as needed not more than one time a day 01/26/2017 05/25/2017 Inactive simvastatin 20 mg tablet RxNorm: 887040 1 Tablet(s) PO QHS 12/21/2016 12/15/2017 Inactive alendronate 70 mg tablet RxNorm: 764488 1 Tablet(s) PO weekly 12/21/2016 11/28/2017 Inactive omeprazole 40 mg capsule,delayed release RxNorm: 670208 1 Capsule(s) PO daily 10/19/2016 10/12/2017 Inactive metoprolol succinate ER 100 mg tablet,extended release 24 hr RxNorm: 234547 1.5 Tablet(s) PO daily 09/17/2016 10/18/2016 Inactive Dosage increased by Dr. Vazquez potassium chloride ER 10 mEq tablet,extended release RxNorm: 987006 1 Tablet(s) PO UD take on days that you take a lasix pill 08/31/2016 12/28/2016 Inactive Lasix 20 mg tablet RxNorm: 1 Tablet(s) PO daily as needed not more than one time a day 08/31/2016 12/28/2016 Inactive Kenalog 40 mg/mL suspension for injection RxNorm: 8826566 1 Milliliter(s) Inj 08/12/2016 08/12/2016 Inactive Tricor 145 mg tablet RxNorm: 065794 1 Tablet(s) PO daily 05/21/2016 05/15/2017 Inactive atenolol 25 mg tablet RxNorm: 635415 1 Tablet(s) PO daily 05/21/2016 08/30/2016 Inactive sucralfate 1 gram tablet RxNorm: 491654 1 Tablet(s) PO TID 05/21/2016 05/15/2017 Inactive enalapril maleate 10 mg tablet RxNorm: 822306 1 Tablet(s) PO daily 04/26/2016 08/30/2016 Inactive perphenazine-amitriptyline 2 mg-10 mg tablet RxNorm: 558182 2 Tablet(s) PO daily 04/26/2016 04/20/2017 Inactive fluticasone 50 mcg/actuation nasal spray,suspension RxNorm: 8908725 1 [place] NASAL daily 04/26/2016 07/25/2017 Inactive Synthroid 100 mcg tablet RxNorm: 197391 1 Tablet(s) PO daily 02/09/2016 01/25/2017 Inactive Synthroid 100 mcg tablet RxNorm: 559954 1 Tablet(s) PO daily 02/09/2016 02/08/2016 Inactive Keflex 500 mg capsule RxNorm: 342761 1 Capsule(s) PO TID 01/28/2016 02/01/2016 Inactive hydrochlorothiazide 25 mg tablet RxNorm: 611398 TAKE 1 TABLET DAILY 01/07/2016 08/30/2016 Inactive enalapril maleate 10 mg tablet RxNorm: 675915 1 Tablet(s) PO daily 12/26/2015 04/25/2016 Inactive hydrochlorothiazide 25 mg tablet RxNorm: 576965 1 Tablet(s) PO daily 12/08/2015 08/30/2016 Inactive omeprazole 40 mg capsule,delayed release RxNorm: 277090 1 Capsule(s) PO daily 12/08/2015 10/18/2016 Inactive simvastatin 20 mg tablet RxNorm: 827824 1 Tablet(s) PO QHS 11/14/2015 11/07/2016 Inactive alendronate 70 mg tablet RxNorm: 281185 1 Tablet(s) PO weekly 10/31/2015 10/24/2016 Inactive Synthroid 112 mcg tablet RxNorm: 766919 1 Tablet(s) PO daily 07/16/2015 02/08/2016 Inactive sucralfate 1 gram tablet RxNorm: 355773 1 Tablet(s) PO TID 06/17/2015 05/20/2016 Inactive perphenazine-amitriptyline 2 mg-10 mg tablet RxNorm: 441558 2 Tablet(s) PO daily 06/17/2015 04/25/2016 Inactive fluticasone 50 mcg/actuation nasal spray,suspension RxNorm: 0989814 1 [place] NASAL daily 06/17/2015 04/25/2016 Inactive fluorouracil 5 % topical cream RxNorm: 536319 APPLY 1 APPLICATION TOPICALLY TWO TIMES A DAY 06/16/2015 06/25/2015 Inactive fluticasone 50 mcg/actuation nasal spray,suspension RxNorm: 829644 1 [place] NASAL daily 06/12/2015 06/16/2015 Inactive atenolol 25 mg tablet RxNorm: 989077 1 Tablet(s) PO daily 05/14/2015 05/07/2016 Inactive Tricor 145 mg tablet RxNorm: 664731 1 Tablet(s) PO daily 04/23/2015 04/16/2016 Inactive Synthroid 125 mcg tablet RxNorm: 062845 1 Tablet(s) PO daily 03/31/2015 07/15/2015 Inactive fluorouracil 5 % topical cream RxNorm: 649511 1 Application TOP BID 03/31/2015 04/09/2015 Inactive Synthroid 137 mcg tablet RxNorm: 113708 1 Tablet(s) PO daily 12/25/2014 12/24/2014 Inactive Synthroid 137 mcg tablet RxNorm: 146853 1 Tablet(s) PO daily 12/25/2014 03/30/2015 Inactive Voltaren 1 % topical gel RxNorm: 665757 4 Gram(s) TOP QID 12/23/2014 04/21/2015 Inactive alendronate 70 mg tablet RxNorm: 962934 1 Tablet(s) PO weekly 12/23/2014 12/22/2014 Inactive alendronate 70 mg tablet RxNorm: 479398 1 Tablet(s) PO weekly 12/23/2014 10/30/2015 Inactive Fosamax 70 mg tablet RxNorm: 578124 1 Tablet(s) PO weekly QW 12/23/2014 01/27/2016 Inactive omeprazole 40 mg capsule,delayed release RxNorm: 129946 1 Capsule(s) PO daily 12/18/2014 12/07/2015 Inactive omeprazole 40 mg capsule,delayed release RxNorm: 527195 1 Capsule(s) PO daily 12/18/2014 12/17/2014 Inactive hydrochlorothiazide 25 mg tablet RxNorm: 647898 1 Tablet(s) PO daily 12/18/2014 12/17/2014 Inactive hydrochlorothiazide 25 mg tablet RxNorm: 985349 1 Tablet(s) PO daily 12/18/2014 12/07/2015 Inactive L-Lysine 1,000 mg tablet RxNorm: 403139 1 Tablet(s) PO daily No Start Date Active folic acid 400 mcg tablet RxNorm: 396358 1 Tablet(s) PO daily No Start Date Active B12 1000 mcg RxNorm: 1/2 Tablet(s) PO daily No Start Date Active Vitamin D3 1,000 unit chewable tablet RxNorm: 383075 1 Tablet(s) PO daily No Start Date Active diltiazem 120 mg tablet RxNorm: 224520 1 Tablet(s) PO daily No Start Date Active metoprolol succinate ER 100 mg tablet,extended release 24 hr RxNorm: 722027 1 Tablet(s) PO daily No Start Date 09/16/2016 Inactive enalapril maleate 10 mg tablet RxNorm: 293571 1 Tablet(s) PO daily No Start Date 12/25/2015 Inactive perphenazine-amitriptyline 2 mg-10 mg tablet RxNorm: 064481 2 Tablet(s) PO daily No Start Date 06/16/2015 Inactive sucralfate 1 gram tablet RxNorm: 409936 1 Tablet(s) PO TID No Start Date 06/16/2015 Inactive hydrochlorothiazide 25 mg tablet RxNorm: 275190 1 Tablet(s) PO daily No Start Date 08/30/2016 Inactive vitamin E (dl, acetate) 400 unit capsule RxNorm: 160688 1 Capsule(s) PO daily No Start Date 03/05/2018 Inactive sotalol 80 mg tablet RxNorm: 3895908 1 Tablet(s) PO BID No Start Date 01/25/2017 Inactive Synthroid 150 mcg tablet RxNorm: 105632 1 Tablet(s) PO daily No Start Date 12/24/2014 Inactive simvastatin 20 mg tablet RxNorm: 691465 1 Tablet(s) PO daily No Start Date 11/13/2015 Inactive Vitamin C RxNorm: PO 1000mg qd No Start Date 03/05/2018 Inactive Fosamax 70 mg tablet RxNorm: 204712 1 Tablet(s) PO weekly No Start Date 12/22/2014 Inactive Tricor 145 mg tablet RxNorm: 970618 1 Tablet(s) PO daily No Start Date 04/22/2015 Inactive diltiazem ER 180 mg capsule,24 hr,extended release RxNorm: 025872 1 Capsule(s) PO daily No Start Date 03/05/2018 Inactive diltiazem ER 240 mg capsule,extended release RxNorm: 473025 1 Capsule(s) PO BID No Start Date 01/25/2017 Inactive Eliquis 5 mg tablet RxNorm: 6804947 1 Tablet(s) PO BID No Start Date 01/25/2017 Inactive fluticasone 50 mcg/actuation nasal spray,suspension RxNorm: 688325 1 [place] NASAL daily No Start Date 06/11/2015 Inactive atenolol 25 mg tablet RxNorm: 730495 1 Tablet(s) PO daily No Start Date 05/13/2015 Inactive Medication Administered Medication Codes Instructions Start Date Status Kenalog 40 mg/mL suspension for injection RxNorm: 4547404 1Milliliter 08/12/2016 No longer Active Immunizations Vaccine [...] Result Date Cbc With Differential Ord2 WBC 6.19 K/ul 06/21/2018 Cbc With Differential Ord2 RBC 3.13 M/ul 06/21/2018 Cbc With Differential Ord2 HGB 7.8 g/dl 06/21/2018 Cbc With Differential Ord2 Neut% 60.0 % 06/21/2018 Cbc With Differential Ord2 HCT 25.5 % 06/21/2018 Cbc With Differential Ord2 MCV 81.5 fl 06/21/2018 Cbc With Differential Ord2 Lymph% 21.8 % 06/21/2018 Cbc With Differential Ord2 [place]% 15.0 % 06/21/2018 Cbc With Differential Ord2 [...] 1.35 K/ul 06/21/2018 Cbc With Differential Ord2 [place] ABS# 0.9 K/ul 06/21/2018 Cbc With Differential [...] 24.9 pg 06/01/2018 Cbc With Differential Ord2 [place]% 12.8 % 06/01/2018 Cbc With Differential Ord2 [...] 0.81 K/ul 06/01/2018 Cbc With Differential Ord2 [place] ABS# 0.7 K/ul 06/01/2018 Cbc With Differential [...] 29.9 pg 03/17/2018 Cbc With Differential Ord2 [place]% 13.3 % 03/17/2018 Cbc With Differential Ord2 [...] 0.90 K/ul 03/17/2018 Cbc With Differential Ord2 [place] ABS# 0.8 K/ul 03/17/2018 Cbc With Differential [...] 30.2 pg 02/22/2018 Cbc With Differential Ord2 [place]% 11.5 % 02/22/2018 Cbc With Differential Ord2 [...] 0.86 K/ul 02/22/2018 Cbc With Differential Ord2 [place] ABS# 0.7 K/ul 02/22/2018 Cbc With Differential Ord2 Eos ABS# 0.2 K/ul 02/22/2018 Cbc With Differential Ord2 Baso ABS# 0.1 K/ul 02/22/2018 Tsh Ord6 TSH (3rd IS) 0.66 uIU/mL 02/22/2018 Free T4 Fqy631 FREE T4 1.22 ng/dL 02/22/2018 Comp Metabolic Fcs962 NA 136 mEq/L 02/22/2018 Comp Metabolic Tux130 K 4.4 mEq/L 02/22/2018 Comp Metabolic Pnb332 CL 102 mEq/L 02/22/2018 Comp Metabolic Gcx965 CO2 23.0 mEq/L 02/22/2018 Comp Metabolic Izq573 ANION GAP 15 02/22/2018 Comp Metabolic Iko981 GLUCOSE 94 mg/dL 02/22/2018 Comp Metabolic Owz290 Creat 1.2 mg/dL 02/22/2018 Comp Metabolic Ggz506 eGFR 46 ml/min/1.73m2 02/22/2018 Comp Metabolic Tyu904 BUN 31 mg/dL 02/22/2018 Comp Metabolic Rkc549 B/C Ratio 25.8 Ratio 02/22/2018 Comp Metabolic Doy722 CALCIUM 9.2 mg/dL 02/22/2018 Comp Metabolic Pdq126 ALK PHOS 34 U/L 02/22/2018 Comp Metabolic Rka665 AST(SGOT) 18 U/L 02/22/2018 Comp Metabolic Vnf140 ALT(SGPT) 8 U/L 02/22/2018 Comp Metabolic Wcf958 BILI T 0.4 mg/dL 02/22/2018 Comp Metabolic Ivl210 ALBUMIN 3.6 g/dL 02/22/2018 Comp Metabolic Rmc307 TPRO 6.2 g/dL 02/22/2018 Comp Metabolic Dtp974 GLOB 2.6 g/dL 02/22/2018 Comp Metabolic Ryu886 A/G Ratio 1.4 Ratio 02/22/2018 Comp Metabolic Clp370 Osmo 278 mOsmo 02/22/2018 Free T4 Epj781 FREE T4 1.11 ng/dL 10/27/2017 Lipid Ord30 [...] 23.3 % 10/27/2017 Cbc With Differential Ord2 [place]% 11.3 % 10/27/2017 Cbc With Differential Ord2 [...] 1.16 K/ul 10/27/2017 Cbc With Differential Ord2 [place] ABS# 0.6 K/ul 10/27/2017 Cbc With Differential Ord2 Eos ABS# 0.2 K/ul 10/27/2017 Cbc With Differential Ord2 Baso ABS# 0.0 K/ul 10/27/2017 Comp Metabolic Rjy524 NA 135 mEq/L 10/27/2017 Comp Metabolic Tqp155 K 4.7 mEq/L 10/27/2017 Comp Metabolic Ivt177 CL 101 mEq/L 10/27/2017 Comp Metabolic Syt087 CO2 23.0 mEq/L 10/27/2017 Comp Metabolic Fzl934 ANION GAP 16 10/27/2017 Comp Metabolic Slt768 GLUCOSE 84 mg/dL 10/27/2017 Comp Metabolic Osb270 Creat 1.2 mg/dL 10/27/2017 Comp Metabolic Pls440 eGFR 46 ml/min/1.73m2 10/27/2017 Comp Metabolic Kgg132 BUN 30 mg/dL 10/27/2017 Comp Metabolic Wll163 B/C Ratio 25.2 Ratio 10/27/2017 Comp Metabolic Bjs687 CALCIUM 9.4 mg/dL 10/27/2017 Comp Metabolic Ahc980 ALK PHOS 30 U/L 10/27/2017 Comp Metabolic Pes670 AST(SGOT) 25 U/L 10/27/2017 Comp Metabolic Cks192 ALT(SGPT) 12 U/L 10/27/2017 Comp Metabolic Xbm522 BILI T 0.5 mg/dL 10/27/2017 Comp Metabolic Uys392 ALBUMIN 3.7 g/dL 10/27/2017 Comp Metabolic Ijk940 TPRO 6.5 g/dL 10/27/2017 Comp Metabolic Nbk001 GLOB 2.8 g/dL 10/27/2017 Comp Metabolic Zfa029 A/G Ratio 1.3 Ratio 10/27/2017 Comp Metabolic Ofn181 Osmo 275 mOsmo 10/27/2017 Hgb & Hct Ord65 HGB 12.2 g/dl 07/29/2017 Hgb & Hct Ord65 HCT 38.8 % 07/29/2017 Tibc Ord40 Iron 79 ug/dl 07/26/2017 Tibc Ord40 UIBC 380 ug/dL 07/26/2017 Tibc Ord40 TIBC 459 ug/dL 07/26/2017 Tibc Ord40 Fe-%Sat 17.2 % 07/26/2017 Tsh Ord6 TSH (3rd IS) 0.46 uIU/mL 07/26/2017 Ferritin Ord22 FERRITIN 83.6 ng/mL 07/26/2017 Free T4 Imb910 FREE T4 1.00 ng/dL 07/26/2017 Tibc Ord40 [...] 31.0 pg 08/02/2016 Cbc With Differential Ord2 [place]% 9.4 % 08/02/2016 Cbc With Differential Ord2 [...] 1.44 K/ul 08/02/2016 Cbc With Differential Ord2 [place] ABS# 0.7 K/ul 08/02/2016 Cbc With Differential Ord2 Eos ABS# 0.3 K/ul 08/02/2016 Cbc With Differential Ord2 Baso ABS# 0.1 K/ul 08/02/2016 Lipid Ord30 CHOL 142 mg/dL 08/02/2016 Lipid Ord30 HDL 40.0 mg/dl 08/02/2016 Lipid Ord30 TRIG 169 mg/dL 08/02/2016 Lipid Ord30 LDL 68 mg/dL 08/02/2016 Lipid Ord30 C/HDL 3.6 Ratio 08/02/2016 Comp Metabolic Gen838 NA 139 mEq/L 08/02/2016 Comp Metabolic Pkh244 K 5.2 mEq/L 08/02/2016 Comp Metabolic Xey312 CL 108 mEq/L 08/02/2016 Comp Metabolic Mic363 CO2 22.0 mEq/L 08/02/2016 Comp Metabolic Tpc206 ANION GAP 14 08/02/2016 Comp Metabolic Myj873 GLUCOSE 103 mg/dL 08/02/2016 Comp Metabolic Jng512 Creat 1.1 mg/dL 08/02/2016 Comp Metabolic Yss114 eGFR 54 ml/min/1.73m2 08/02/2016 Comp Metabolic Cxc589 BUN 26 mg/dL 08/02/2016 Comp Metabolic Enz857 B/C Ratio 24.8 Ratio 08/02/2016 Comp Metabolic Jja009 CALCIUM 9.4 mg/dL 08/02/2016 Comp Metabolic Ebv754 ALK PHOS 41 U/L 08/02/2016 Comp Metabolic Dkl294 AST(SGOT) 18 U/L 08/02/2016 Comp Metabolic Gko128 ALT(SGPT) 10 U/L 08/02/2016 Comp Metabolic Jbn513 BILI T 0.3 mg/dL 08/02/2016 Comp Metabolic Ugw639 ALBUMIN 3.7 g/dL 08/02/2016 Comp Metabolic Qvf427 TPRO 6.5 g/dL 08/02/2016 Comp Metabolic Dcx675 GLOB 2.8 g/dL 08/02/2016 Comp Metabolic Wyr280 A/G Ratio 1.3 Ratio 08/02/2016 Comp Metabolic Qfs741 Osmo 283 mOsmo 08/02/2016 Free T4 Fcw101 FREE T4 1.08 ng/dL 08/02/2016 Tsh Ord6 hTSH II 0.35 uIU/mL 05/13/2016 Free T4 Lnu230 FREE T4 0.78 ng/dL 05/13/2016 Free T4 Owd323 FREE T4 1.13 ng/dL 01/28/2016 Tsh Ord6 [...] 93.1 fl 07/14/2015 Cbc With Differential Ord2 [place]% 9.1 % 07/14/2015 Cbc With Differential Ord2 [...] 1.80 K/ul 07/14/2015 Cbc With Differential Ord2 [place] ABS# 0.7 K/ul 07/14/2015 Cbc With Differential [...] Ord30 C/HDL 3.0 Ratio 07/14/2015 Comp Metabolic Qdn436 NA 136 mEq/L 07/14/2015 Comp Metabolic Xdz779 K 4.4 mEq/L 07/14/2015 Comp Metabolic Fop193 CL 101 mEq/L 07/14/2015 Comp Metabolic Wir684 CO2 27.0 mEq/L 07/14/2015 Comp Metabolic Dbe539 ANION GAP 12 07/14/2015 Comp Metabolic Krg826 GLUCOSE 97 mg/dL 07/14/2015 Comp Metabolic Uto377 Creat 1.0 mg/dL 07/14/2015 Comp Metabolic Gvj531 eGFR 56 ml/min/1.73m2 07/14/2015 Comp Metabolic Awk049 BUN 27 mg/dL 07/14/2015 Comp Metabolic Sps019 B/C Ratio 26.7 Ratio 07/14/2015 Comp Metabolic Nwt466 CALCIUM 9.3 mg/dL 07/14/2015 Comp Metabolic Ftn623 ALK PHOS 33 U/L 07/14/2015 Comp Metabolic Cpm100 AST(SGOT) 14 U/L 07/14/2015 Comp Metabolic Izn466 ALT(SGPT) 8 U/L 07/14/2015 Comp Metabolic Vpu137 BILI T 0.4 mg/dL 07/14/2015 Comp Metabolic Dcl222 ALBUMIN 3.8 g/dL 07/14/2015 Comp Metabolic Sbu438 TPRO 6.6 g/dL 07/14/2015 Comp Metabolic Pve720 GLOB 2.8 g/dL 07/14/2015 Comp Metabolic Lia441 A/G Ratio 1.4 Ratio 07/14/2015 Comp Metabolic Mxe520 Osmo 277 mOsmo 07/14/2015 Tsh Ord6 hTSH II 0.23 uIU/mL 07/14/2015 Free T4 Yob601 FREE T4 1.19 ng/dL 07/14/2015 Cbc With [...] Ord30 C/HDL 3.4 Ratio 03/26/2015 Comp Metabolic Klz631 NA 135 mEq/L 03/26/2015 Comp Metabolic Ycb789 K 5.0 mEq/L 03/26/2015 Comp Metabolic Qla885 CL 99 mEq/L 03/26/2015 Comp Metabolic Bfc300 CO2 27.0 mEq/L 03/26/2015 Comp Metabolic Ouw068 ANION GAP 14 03/26/2015 Comp Metabolic Lfl876 GLUCOSE 88 mg/dL 03/26/2015 Comp Metabolic Ywu432 Creat 1.1 mg/dL 03/26/2015 Comp Metabolic Lth572 eGFR 50 ml/min/1.73m2 03/26/2015 Comp Metabolic Anc549 BUN 27 mg/dL 03/26/2015 Comp Metabolic Gxn920 B/C Ratio 24.1 Ratio 03/26/2015 Comp Metabolic Xke121 CALCIUM 9.9 mg/dL 03/26/2015 Comp Metabolic Viu110 ALK PHOS 30 U/L 03/26/2015 Comp Metabolic Hea064 AST(SGOT) 16 U/L 03/26/2015 Comp Metabolic Rjr691 ALT(SGPT) 8 U/L 03/26/2015 Comp Metabolic Gxh518 BILI T 0.4 mg/dL 03/26/2015 Comp Metabolic Eti011 ALBUMIN 3.9 g/dL 03/26/2015 Comp Metabolic Wjo324 TPRO 6.4 g/dL 03/26/2015 Comp Metabolic Any290 GLOB 2.5 g/dL 03/26/2015 Comp Metabolic Wpr419 A/G Ratio 1.6 Ratio 03/26/2015 Comp Metabolic Gif675 Osmo 275 mOsmo 03/26/2015 Free T4 Esj271 FREE T4 1.22 ng/dL 03/26/2015 Tsh Ord6 hTSH II 0.20 uIU/mL 03/26/2015 Vitamin D 25 Oh Pdr4056 VITAMIN D, 25 HYDROXY 51.09 ng/mL 12/25/2014 Tsh Ord6 hTSH II 0.09 uIU/mL 12/23/2014 Free T4 Zoq614 FREE T4 1.30 ng/dL 12/23/2014 Comp Metabolic Ffl065 NA 135 mEq/L 12/23/2014 Comp Metabolic Tbs918 K 4.7 mEq/L 12/23/2014 Comp Metabolic Ykq415 CL 100 mEq/L 12/23/2014 Comp Metabolic Igw363 CO2 23.0 mEq/L 12/23/2014 Comp Metabolic Ifm793 ANION GAP 17 12/23/2014 Comp Metabolic Bun665 GLUCOSE 93 mg/dL 12/23/2014 Comp Metabolic Snp378 Creat 1.1 mg/dL 12/23/2014 Comp Metabolic Muc695 eGFR 53 ml/min/1.73m2 12/23/2014 Comp Metabolic Eea833 BUN 26 mg/dL 12/23/2014 Comp Metabolic Wvl017 B/C Ratio 24.3 Ratio 12/23/2014 Comp Metabolic Vss899 CALCIUM 9.5 mg/dL 12/23/2014 Comp Metabolic Xar479 ALK PHOS 27 U/L 12/23/2014 Comp Metabolic Flx987 AST(SGOT) 16 U/L 12/23/2014 Comp Metabolic Tnl656 ALT(SGPT) 8 U/L 12/23/2014 Comp Metabolic Jfj019 BILI T 0.4 mg/dL 12/23/2014 Comp Metabolic Wks825 ALBUMIN 3.9 g/dL 12/23/2014 Comp Metabolic Hbg248 TPRO 6.7 g/dL 12/23/2014 Comp Metabolic Mde576 GLOB 2.8 g/dL 12/23/2014 Comp Metabolic Can849 A/G Ratio 1.4 Ratio 12/23/2014 Comp Metabolic Qnw281 Osmo 275 mOsmo 12/23/2014 Review of Systems [...] affect 06/05/2018 None Full Exam - General 1995 Constitutional general appearance Overall: well developed 05/05/2018 [...] accomodation 11/29/2017 None Full Exam - General 1995 Ears/Nose/Throat lips/teeth/gingiva Overall: benign lips 11/29/2017 None [...] inspection of skin Consistency: thick 03/31/2015 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 [...] SUBSEQ VISIT CPT- 4: G0439 05/05/2018 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 3-[address]: 828426327 CPT-4: G0436 04/11/2017 PNEUMOCOCCAL VACC [address]: 85963962 CPT-4: 79227 02/09/2017 FLU VACC PRSV FREE INC ANTIG CPT-4: 45990 02/09/2017 ADMIN INFLUENZA VIRUS VAC CPT-4: G0008 02/09/2017 ADMIN PNEUMOCOCCAL VACCINE SNOMED CT: 26047253 CPT-4: G0009 02/09/2017 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 3-[address]: 789788715 CPT-4: G0436 02/07/2017 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 3-[address]: 622678684 CPT-4: G0436 10/19/2016 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 3-[address]: 622199793 CPT-4: G0436 08/31/2016 TRIAMCINOLONE ACET INJ NOS CPT-4: J3301 08/12/2016 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 3-[address]: 897842790 CPT-4: G0436 07/28/2016 ADMIN INFLUENZA VIRUS VAC CPT-4: G0008 01/28/2016 FLU VACC 4 JULISA 3 YRS PLUS IM SNOMED CT: 73881082 CPT-4: 39039 01/28/2016 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 3-[address]: 957685649 CPT-4: G0436 07/29/2015 Vital Signs Date Vital 06/05/2018 Blood Pressure 1: 122/60 Code: 8480-6 BMI: 25.4 Code: 94548-3 Heart Rate 1: 74 bpm Height: 5'4" SpO2: 98% Weight: 148 lbs 05/05/2018 Blood Pressure 1: 130/64 Code: 8480-6 BMI: 25.1 Code: 13881-7 Heart Rate 1: 72 bpm Height: 5'4" SpO2: 97% Weight: 146 lbs 04/03/2018 Blood Pressure 1: 142/80 Code: 8480-6 BMI: 25.2 Code: 66052-6 Heart Rate 1: 99 bpm Height: 5'4" SpO2: 97% Weight: 147 lbs 03/06/2018 Blood Pressure 1: 140/80 Code: 8480-6 BMI: 26.1 Code: 74721-8 Heart Rate 1: 71 bpm Height: 5'4" SpO2: 98% Weight: 152 lbs 02/22/2018 Blood Pressure 1: 146/68 Code: 8480-6 BMI: 26.6 Code: 84373-6 Heart Rate 1: 88 bpm Height: 5'4" SpO2: 97% Weight: 155 lbs 12/13/2017 Blood Pressure 1: 132/68 Code: 8480-6 BMI: 26.6 Code: 67306-4 Heart Rate 1: 72 bpm Height: 5'4" SpO2: 94% Weight: 154 lbs 14 oz 11/29/2017 Blood Pressure 1: 130/64 Code: 8480-6 BMI: 26.1 Code: 40989-0 Heart Rate 1: 81 bpm Height: 5'4" SpO2: 94% Weight: 152 lbs 10/27/2017 Blood Pressure 1: 120/62 Code: 8480-6 BMI: 25.9 Code: 50917-0 Heart Rate 1: 70 bpm Height: 5'4" SpO2: 96% Weight: 151 lbs 07/26/2017 Blood Pressure 1: 146/70 Code: 8480-6 BMI: 26.3 Code: 44365-5 Heart Rate 1: 69 bpm Height: 5'4" SpO2: 98% Weight: 153 lbs 05/26/2017 Blood Pressure 1: 142/76 Code: 8480-6 BMI: 26.4 Code: 98287-1 Heart Rate 1: 59 bpm Height: 5'4" SpO2: 99% Weight: 154 lbs 04/11/2017 Blood Pressure 1: 134/64 Code: 8480-6 BMI: 26.6 Code: 89740-9 Heart Rate 1: 65 bpm Height: 5'4" SpO2: 98% Weight: 155 lbs 02/07/2017 Blood Pressure 1: 120/72 Code: 8480-6 Heart Rate 1: 72 bpm Height: 5'4" SpO2: 96% Weight: 01/26/2017 Blood Pressure 1: 146/68 Code: 8480-6 BMI: 26.4 Code: 20525-5 Heart Rate 1: 96 bpm Height: 5'4" SpO2: 97% Weight: 154 lbs 10/19/2016 Blood Pressure 1: 144/76 Code: 8480-6 BMI: 25.8 Code: 39711-9 Heart Rate 1: 68 bpm Height: 5'4" SpO2: 96% Weight: 150 lbs 8 oz 09/22/2016 Blood Pressure 1: 122/80 Code: 8480-6 BMI: 26.1 Code: 22406-5 Heart Rate 1: 111 bpm Height: 5'4" SpO2: 97% Weight: 152 lbs 08/31/2016 Blood Pressure 1: 152/82 Code: 8480-6 BMI: 27.1 Code: 31949-4 Heart Rate 1: 118 bpm Height: 5'4" SpO2: 96% Weight: 158 lbs 08/12/2016 Blood Pressure 1: 146/78 Code: 8480-6 BMI: 26.9 Code: 31032-2 Heart Rate 1: 68 bpm Height: 5'4" SpO2: 97% Weight: 157 lbs 07/28/2016 Blood Pressure 1: 128/64 Code: 8480-6 BMI: 27.1 Code: 40029-4 Heart Rate 1: 63 bpm Height: 5'4" SpO2: 97% Weight: 158 lbs 01/28/2016 Blood Pressure 1: 130/70 Code: 8480-6 BMI: 27.3 Code: 29144-0 Heart Rate 1: 60 bpm Height: 5'4" SpO2: 95% Weight: 159 lbs 07/29/2015 Blood Pressure 1: 136/80 Code: 8480-6 BMI: 28.1 Code: 53717-1 Heart Rate 1: 68 bpm Height: 5'4" SpO2: 96% Weight: 163 lbs 8 oz 03/31/2015 Blood Pressure 1: 138/88 Code: 8480-6 BMI: 27.5 Code: 05768-6 Heart Rate 1: 72 bpm Height: 5'4" Weight: 160 lbs 12/23/2014 Blood Pressure 1: 138/68 Code: 8480-6 BMI: 27.1 Code: 74483-1 Heart Rate 1: 63 bpm Height: 5'4" [...] data Encounters Encounter Performer Location Codes Date ([id number]) [id number] EST. PATIENT, LEVEL IV Diagnosis: Other specified anemias[ICD10: D64.89] Diagnosis: Other insomnia[ICD10: G47.09] Diagnosis: Atrophy of thyroid (acquired)[ICD10: E03.4] Diagnosis: Allergic urticaria[ICD10: L50.0] Kandi Cabrera MD, [facility] CPT-4: 84138 06/05/2018 [id number]) 57960 EST. PATIENT, LEVEL IV Diagnosis: Essential (primary) hypertension[ICD10: I10] Diagnosis: Nonrheumatic aortic (valve) stenosis[ICD10: I35.0] Diagnosis: Atrophy of thyroid (acquired)[ICD10: E03.4] Diagnosis: Chronic atrial fibrillation[ICD10: I48.2] Kandi Cabrera MD, [facility] CPT-4: 10026 04/03/2018 [id number]) 85969 EST. PATIENT, LEVEL IV Diagnosis: Essential (primary) hypertension[ICD10: I10] Diagnosis: Chronic atrial fibrillation[ICD10: I48.2] Diagnosis: Nonrheumatic aortic (valve) stenosis[ICD10: I35.0] Diagnosis: Age-related osteoporosis without current pathological fracture[ICD10: M81.0] Kandi Cabrera MD, [facility] CPT-4: 05391 03/06/2018 87097 EST. PATIENT, LEVEL III Diagnosis: Low back pain[ICD10: M54.5] Diagnosis: Dysuria[ICD10: R30.0] Diagnosis: Gastro-esophageal reflux disease without esophagitis[ICD10: K21.9] Payton Cabrera MD, [facility] CPT-4: 08774 02/22/2018 [id number]) 78468 EST. PATIENT, LEVEL III Diagnosis: Atrophy of thyroid (acquired)[ICD10: E03.4] Diagnosis: Other iron deficiency anemias[ICD10: D50.8] Diagnosis: Epigastric pain[ICD10: R10.13] Kandi Cabrera MD, [facility] CPT-4: 75585 12/13/2017 ([id number]) 49095 EST. PATIENT, LEVEL IV Diagnosis: Diverticulitis of large intestine without perforation or abscess without bleeding[ICD10: K57.32] Kandi Cabrera MD, [facility] CPT-4: 14104 11/29/2017 ([id number]) 83437 EST. PATIENT, LEVEL IV Diagnosis: Atrophy of thyroid (acquired)[ICD10: E03.4] Diagnosis: Other iron deficiency anemias[ICD10: D50.8] Diagnosis: Epigastric pain[ICD10: R10.13] Diagnosis: Right lower quadrant pain[ICD10: R10.31] Diagnosis: Left lower quadrant pain[ICD10: R10.32] Kandi Cabrera MD, [facility] CPT-4: 96167 10/27/2017 78975 EST. PATIENT, LEVEL IV Diagnosis: Atrophy of thyroid (acquired)[ICD10: E03.4] Diagnosis: Other iron deficiency anemias[ICD10: D50.8] Diagnosis: Essential (primary) hypertension[ICD10: I10] Diagnosis: Gastro-esophageal reflux disease without esophagitis[ICD10: K21.9] Payton Cabrera MD, [facility] CPT-4: 01593 07/26/2017 ([id number]) 00748 EST. PATIENT, LEVEL IV Diagnosis: Other iron deficiency anemias[ICD10: D50.8] Diagnosis: Atrophy of thyroid (acquired)[ICD10: E03.4] Diagnosis: Tobacco use[ICD10: Z72.0] Diagnosis: Essential (primary) hypertension[ICD10: I10] Diagnosis: Low back pain[ICD10: M54.5] Kandi Cabrera MD, [facility] CPT-4: 56039 05/26/2017 ([id number]) 41941 EST. PATIENT, LEVEL IV Diagnosis: Shortness of breath[ICD10: R06.02] Diagnosis: Tobacco use[ICD10: Z72.0] Diagnosis: Chronic atrial fibrillation[ICD10: I48.2] Kandi Cabrera MD, [facility] CPT-4: 65999 04/11/2017 ([id number]) 18655 EST. PATIENT, LEVEL III Diagnosis: Unsteadiness on feet[ICD10: R26.81] Diagnosis: Tobacco use[ICD10: Z72.0] Kandi Cabrera MD, [facility] CPT-4: 21951 02/07/2017 ([id number]) 47182 EST. PATIENT, LEVEL IV Diagnosis: Cough[ICD10: R05] Diagnosis: Essential (primary) hypertension[ICD10: I10] Diagnosis: Chronic atrial fibrillation[ICD10: I48.2] Diagnosis: Unsteadiness on feet[ICD10: R26.81] Kandi Cabrera MD, [facility] CPT- 4: 74351 01/26/2017 ([id number]) 95437 EST. PATIENT, LEVEL IV Diagnosis: Essential (primary) hypertension[ICD10: I10] Diagnosis: Atrophy of thyroid (acquired)[ICD10: E03.4] Diagnosis: Tobacco use[ICD10: Z72.0] Diagnosis: Chronic atrial fibrillation[ICD10: I48.2] Diagnosis: Mixed hyperlipidemia[ICD10: E78.2] Kandi Cabrera MD, [facility] CPT- 4: 63684 10/19/2016 ([id number]) 16287 EST. PATIENT, LEVEL IV Diagnosis: Atrophy of thyroid (acquired)[ICD10: E03.4] Diagnosis: Mixed hyperlipidemia[ICD10: E78.2] Diagnosis: Essential (primary) hypertension[ICD10: I10] Kandi Cabrera MD, [facility] CPT-4: 41057 09/22/2016 ([id number]) 58597 EST. PATIENT, LEVEL IV Diagnosis: Essential (primary) hypertension[ICD10: I10] Diagnosis: Atrophy of thyroid (acquired)[ICD10: E03.4] Diagnosis: Chronic atrial fibrillation[ICD10: I48.2] Kandi Cabrera MD, [facility] CPT-4: 07048 08/31/2016 ([id number]) 63185 EST. PATIENT, LEVEL III Diagnosis: Low back pain[ICD10: M54.5] Diagnosis: Sacroiliitis, not elsewhere classified[ICD10: M46.1] Janeen Cabrera MD, [facility] CPT-4: 77351 08/12/2016 ([id number]) 93621 EST. PATIENT, LEVEL IV Diagnosis: Mixed hyperlipidemia[ICD10: E78.2] Diagnosis: Essential (primary) hypertension[ICD10: I10] Diagnosis: Atrophy of thyroid (acquired)[ICD10: E03.4] Kandi Cabrera MD, [facility] CPT-4: 70418 07/28/2016 89984 50210 EST. PATIENT, LEVEL IV Diagnosis: Hypothyroidism, unspecified[ICD10: E03.9] Diagnosis: Essential (primary) hypertension[ICD10: I10] Diagnosis: Mixed hyperlipidemia[ICD10: E78.2] Diagnosis: Cellulitis of left lower limb[ICD10: L03.116] Diagnosis: Encounter for immunization[ICD10: Z23] Kandi Cabrera MD, [facility] CPT-4: 11648 01/28/2016 ([id number] 60172 EST. PATIENT, LEVEL IV Diagnosis: Essential (primary) hypertension[ICD10: I10] Diagnosis: Hypothyroidism, unspecified[ICD10: E03.9] Diagnosis: Diarrhea, unspecified[ICD10: R19.7] Diagnosis: Tobacco use[ICD10: Z72.0] Diagnosis: Tobacco abuse counseling[ICD10: Z71.6] Diagnosis: Other obesity due to excess calories[ICD10: E66.09] Kandi Cabrera MD, [facility] CPT-4: 87581 07/29/2015 ([id number] 23350 EST. PATIENT, LEVEL IV Diagnosis: Essential (primary) hypertension[ICD10: I10] Diagnosis: Hypothyroidism, unspecified[ICD10: E03.9] Diagnosis: Actinic keratosis[ICD10: L57.0] Kandi Cabrera MD, [facility] CPT-4: 64689 03/31/2015 ([id number]) OFFICE VISIT, NEW - LEVEL 4 Diagnosis: ESSENTIAL HYPERTENSION[ICD9: 401.9] Diagnosis: HYPOTHYROIDISM[ICD9: 244.9] Diagnosis: HYPERLIPIDEMIA[ICD9: 272.4] Diagnosis: Osteoporosis[ICD9: 733.00] Diagnosis: OSTEOARTH NOS-UNSPEC[ICD9: 715.90] Diagnosis: Sacroiliitis[ICD9: 720.2] Kandi Cabrera MD, [facility] CPT-4: 80717 12/23/2014 Plan of Care Planned Activity Notes Codes Status Date Visit Plan: Hypothyroidism - pt with chronic [...] hydroxyzine. 06/05/2018 Appointment: [phone] (15 min) Moderate 06/05/2018 Patient Education: Patient [...] Addiction Completed 05/05/2018 Appointment: [phone] (15 min) Moderate 04/11/2018 Visit Plan: Hypertension [...] improving. 04/03/2018 Appointment: [facility]rera [phone] (15 min) Moderate 04/03/2018 Patient Education: Patient [...] a conversation about surgical intervention with her Medical Asst. 03/06/2018 Appointment: Kandi Cabrera WPtel: [facility] (15 min) Moderate 03/06/2018 Patient Education: Patient [...] not improving. 02/22/2018 Appointment: Payton Leon WPtel: [phone] [facility] [place] (15 min) Moderate 02/22/2018 Patient Education: Patient Medication Summary Completed 02/22/2018 Patient Education: Back Pain Completed 02/22/2018 Visit Plan: Diarrhea - improved - pt advised to avoid seeds, nuts, popcorn, or any other food which has been proven to upset the pt's stomach. 12/13/2017 Appointment: Kandi Cabrera WPtel: [phone] [facility] [place] (15 min) Moderate 12/13/2017 Patient Education: Patient Medication Summary Completed 12/13/2017 Visit Plan: Diverticulitis - rx for antibiotic sent to pt's pharmacy - pt advised to avoid seeds, nuts, popcorn, or any other food which has been proven to upset the pt's stomach. 11/29/2017 Appointment: Kandi Cabrera WPtel: [facility]1 [facility] [place] (15 min) Moderate 11/29/2017 Patient Education: Patient Medication Summary Completed 11/29/2017 Appointment: Kandi Cabrera WPtel: [facility]4 [facility] [place] (15 min) Moderate 11/24/2017 Visit Plan: [...] daily x 10 days 10/27/2017 Appointment: Kandi Caberra WPtel: [phone] [facility] [place] (15 min) Moderate 10/27/2017 Patient Education: [...] improving. 07/26/2017 [phone] (30 min) Complex 07/26/2017 Patient Education: Patient Medication Summary Completed 07/26/2017 Care Plan: Iron Pending 07/26/2017 Care Plan: Referral Order SNOMED-CT : [id number] Pending 07/26/2017 Visit Plan: Hypertension - well [...] exercises recommended. 05/26/2017 Appointment: [phone] (15 min) Moderate 05/26/2017 Patient Education: Patient Medication Summary Completed 05/26/2017 Patient Education: Patient Medication Summary Completed 05/19/2017 Care Plan: Iron Pending 05/19/2017 Visit Plan: Dyspnea on Exertion - uncontrolled - I have recommended pt to have Pulmonary function studies as well as a referral back to her Medical Asst - Dr. Hanna - I suspect she [...] cigarettes". 04/11/2017 Appointment: Kandi Cabrera WPtel: [phone] [facility] (15 min) Moderate 04/11/2017 Patient Education: Patient Medication Summary Completed 04/11/2017 Patient Education: Smoking and Tobacco Addiction Completed 04/11/2017 Care Plan: Referral Order SNOMED-CT : [id number] Pending 04/11/2017 Appointment: Kandi Cabrera WPtel: [phone] [facility] (15 min) Moderate 02/14/2017 Appointment: Injection 02/09/2017 Referral: [facility]: [phone] [facility] Patient informed. Completed 02/09/2017 Patient Education: Patient Medication Summary Completed 02/09/2017 Patient Education: Smoking and Tobacco Addiction Completed 02/09/2017 Visit Plan: Tobacco abuse - chronic condition for this patient. Patient has been counseled about need to stop smoking due to the negative health affects. Pt has vocalized understanding and states that they will con cost estimating engineer smoking cessation, but the pt is not yet ready to use medication to assist cessation. Rx for wellbutrin 75mg 1/2 pill bid. Gait instability - referral to [facility] for [facility] instability 02/07/2017 Appointment: Kandi Cabrera WPtel: [facility]5 [facility] (15 min) Moderate 02/07/2017 Patient Education: Patient Medication Summary Completed 02/07/2017 Patient Education: Smoking and Tobacco Addiction Completed 02/07/2017 Care Plan: Referral Order SNOMED-CT : [id number] Pending 02/07/2017 Visit Plan: Cough - pt [...] becoming uncontrolled. 01/26/2017 Appointment: Kandi Cabrera WPtel: [facility] (15 min) Moderate 01/26/2017 Patient Education: Patient [...] per week. 10/19/2016 Appointment: Kandi Cabrera WPtel: [phone] [facility] (15 min) Moderate 10/19/2016 Patient Education: Patient Medication Summary Completed 10/19/2016 Patient Education: Smoking and Tobacco Addiction Completed 10/19/2016 Patient Education: Hypertension Completed 10/19/2016 Visit Plan: Atrial Fibrillation - pt on chronic anticoagulation and is not optimally rate controlled. Pt is to see her field artillery crewmember tomorrow, will discuss with him her plans [...] of control. 09/22/2016 Appointment: Kandi Cabrera WPtel: [phone] [facility] (15 min) Moderate 09/22/2016 Patient Education: Patient [...] q 3 months or q 6 m [facility] based on previous levels of control. 08/31/2016 Appointment: Kandi Cabrera WPtel: [phone] [facility] (15 min) Moderate 08/31/2016 Patient Education: Patient Medication Summary Completed 08/31/2016 Patient Education: Smoking and Tobacco Addiction Completed 08/31/2016 Patient Education: Hypertension Completed 08/31/2016 Visit Plan: Sacroiliitis -kenalog injection today in the office- tylenol as directed-heat as directed-xray lumbar spine. Pt is to call if the symptoms do not improve or if they worsen. 08/12/2016 Appointment: Janeen Marsh WPtel: [phone] [phone] (30 min) Complex 08/12/2016 Patient Education: Patient Medication Summary Completed 08/12/2016 Patient Education: Smoking and Tobacco Addiction Completed 08/12/2016 Appointment: Payton Leon WPtel: [phone] [facility] [facility] - Annual Wellness Visit 07/30/2016 Visit Plan: [...] to medications. 07/28/2016 Appointment: Kandi Cabrera WPtel: [address] [place], [place] [address] [place] (15 min) Moderate 07/28/2016 Patient Education: [...] shot today 01/28/2016 Appointment: [facility] Cabrera [phone] (15 min) Moderate 01/28/2016 Patient Education: Patient [...] increase activity 07/29/2015 Appointment: K[facility] Cabrera [facility]: [phone] [place] (15 min) Moderate 07/29/2015 Patient Education: [...] of control. A ctinic keratosis - left mormonism and left nasal bridge - pt to use efudex on the lesions on the nose and face. 03/31/2015 Appointment: Kandi Cabrera WPtel: [address] [place], [place] [id number] (15 min) Moderate 03/31/2015 Patient Education: Patient [...] D levels. 12/23/2014 Appointment: Kandi Cabrera WPtel: [address] [place], [place] [id number] [place] (S) New Patient 12/23/2014 Patient Education: Patient Medication Summary Completed 12/23/2014 Patient Education: Hypertension Completed 12/23/2014 Care Plan: Referral Order SNOMED-CT : [id number] Ordered 12/23/2014 Referral: External, Ordering Provider Referral Completed Referral: External, Ordering Provider Referral Appointment Requested Referral: Maggi Reaves Referral Initiated Referral: [facility] WPtel: [phone] Referral Appointment Requested Referral: External, Ordering Provider Dr. Hanna's office has already contacted her about an appt scheduled for April 25 at 9:00 AM. Completed Instructions Comment . Tobacco abuse - chronic condition for this patient. Patient has been counseled about need to stop smoking due to the negative health affects. Pt has vocalized understanding and states that they will consider smoking cessation, but the pt is not yet ready to use medication to assist cessation. Rx for wellbutrin 75mg 1/2 pill bid. Gait instability - referral to [facility] for gait instability . Medicare Exam - today we discussed [...] keflex sent to pharmacy flu shot today zantac 150mg take twice daily x 2 [...] Back pain - stretching exercises recommended. . Diarrhea - improved - pt advised [...] levels of control. Actinic keratosis - left mormonism and left nasal bridge - pt to use efudex on the lesions on the nose and face. hold the tricor for the next week [...] a conversation about surgical intervention with her Medical Asst. . Diverticulitis - rx for antibiotic sent [...] keflex sent to pharmacy flu shot today take zantac in the morning and omeprazole [...] well as a referral back to her Medical Asst - Dr. Hanna - I suspect she [...] will be completely off of cigarettes". . Atrial Fibrillation - pt on chronic [...] if their heart rate is becoming uncontrolled. take 1/2 of an venu or zyrtec [...] daily, call if not improving. PROBIOTIC - kathy DLC, lactobacilus/acidophilis brand probiotic - these can be [...] do not improve or if they worsen. . Atrial Fibrillation - pt on chronic anticoagulation and is not optimally rate controlled. Pt is to see her field artillery crewmember tomorrow, will discuss with him her plans [...]
--- OUTSIDE RECORDS SUMMARY | 2018-12-29 14:06 | XMS REPORT | CCD ---
Author Author Kandi Cabrera MD, [facility] Address [address] [place] [address] Phone Care Team Providers Care Recreation Aide Name Role Phone PP Unavailable CCM Unavailable Summary Purpose Interface Exchange Insurance Providers Payer name Policy type / Coverage type Covered alliance party ID Effective Begin Date Effective End Date [facility] Commercial Insurance [id number] Unknown WPS Medicare Part B Commercial Insurance [id number] 2017 Unknown Family history Father Diagnosis Age [...] Unknown Retired 12/23/[address]: 26995731 Current every day smoker 12/23/2014 Number of years using tobacco Unknown > 50 trying to quit 12/23/2014 Number of cigarettes/day Unknown 10 (Half a pack) 12/23/[address]: 705244156 Never drinks alcohol 12/23/2014 Allergies, Adverse Reactions, Alerts Substance Reaction Codes Entered Date Inactivated Date Status ciprofloxacin RxNorm: 40609 05/05/2018 No Inactive Date Active SULFA(SULFONAMIDE ANTIBIOTICS) [...] Instructions hydroxyzine HCl 25 mg tablet RxNorm: 450830 1 Tablet(s) PO QHS may increase to two pills at hs if allergic reactions are occuring 06/05/2018 2018 Active Synthroid 100 mcg tablet RxNorm: 091827 1 Tablet(s) PO daily 06/05/2018 08/28/2019 Active Lasix 20 mg tablet RxNorm: 600543 1 Tablet(s) PO daily as needed not more than one time a day 05/19/2018 09/15/2018 Active prednisone 20 mg tablet RxNorm: 435431 2 Tablet(s) PO daily 02/22/2018 02/26/2018 Inactive Cipro 500 mg tablet RxNorm: 584784 1 Tablet(s) PO BID 02/22/2018 02/28/2018 Inactive potassium chloride ER 10 mEq tablet,extended release RxNorm: 752187 1 Tablet(s) PO UD take on days that you take a lasix pill 02/13/2018 02/07/2019 Active Synthroid 100 mcg tablet RxNorm: 500589 1 Tablet(s) PO daily 02/13/2018 06/04/2018 Inactive simvastatin 20 mg tablet RxNorm: 382098 1 Tablet(s) PO QHS 01/13/2018 01/07/2019 Active metronidazole 500 mg tablet RxNorm: 394456 1 Tablet(s) PO TID 11/29/2017 12/08/2017 Inactive alendronate 70 mg tablet RxNorm: 201132 1 Tablet(s) PO weekly 11/29/2017 03/05/2018 Inactive omeprazole 40 mg capsule,delayed release RxNorm: 110208 1 Capsule(s) PO daily 11/11/2017 11/05/2018 Active Flagyl 500 mg tablet RxNorm: 113734 1 Tablet(s) PO TID 10/27/2017 11/05/2017 Inactive sucralfate 1 gram tablet RxNorm: 990350 1 Tablet(s) PO TID 07/26/2017 07/20/2018 Active fluticasone 50 mcg/actuation nasal spray,suspension RxNorm: 1554809 1 [place] NASAL daily 07/26/2017 No Stop Date Active Protonix 40 mg tablet,delayed release RxNorm: 852686 1 Tablet(s) PO daily 07/26/2017 10/23/2017 Inactive Tricor 145 mg tablet RxNorm: 518500 1 Tablet(s) PO daily 05/26/2017 05/20/2018 Inactive perphenazine-amitriptyline 2 mg-10 mg tablet RxNorm: 555669 2 Tablet(s) PO daily 05/26/2017 05/20/2018 Inactive bupropion HCl 75 mg tablet RxNorm: 042407 1/2 Tablet(s) PO BID 02/07/2017 05/07/2017 Inactive Eliquis 5 mg tablet RxNorm: 7556722 1 Tablet(s) PO BID 01/26/2017 01/20/2018 Inactive sotalol 80 mg tablet RxNorm: 6761283 1 Tablet(s) PO BID 01/26/2017 04/20/2018 Inactive potassium chloride ER 10 mEq tablet,extended release RxNorm: 238072 1 Tablet(s) PO UD take on days that you take a lasix pill 01/26/2017 01/20/2018 Inactive Synthroid 100 mcg tablet RxNorm: 780534 1 Tablet(s) PO daily 01/26/2017 02/12/2018 Inactive diltiazem ER 240 mg capsule,extended release RxNorm: 129605 1 Capsule(s) PO BID 01/26/2017 05/03/2017 Inactive Lasix 20 mg tablet RxNorm: 1 Tablet(s) PO daily as needed not more than one time a day 01/26/2017 05/25/2017 Inactive simvastatin 20 mg tablet RxNorm: 312000 1 Tablet(s) PO QHS 12/21/2016 12/15/2017 Inactive alendronate 70 mg tablet RxNorm: 695910 1 Tablet(s) PO weekly 12/21/2016 11/28/2017 Inactive omeprazole 40 mg capsule,delayed release RxNorm: 422653 1 Capsule(s) PO daily 10/19/2016 10/12/2017 Inactive metoprolol succinate ER 100 mg tablet,extended release 24 hr RxNorm: 501789 1.5 Tablet(s) PO daily 09/17/2016 10/18/2016 Inactive Dosage increased by Dr. Vazquez potassium chloride ER 10 mEq tablet,extended release RxNorm: 874254 1 Tablet(s) PO UD take on days that you take a lasix pill 08/31/2016 12/28/2016 Inactive Lasix 20 mg tablet RxNorm: 1 Tablet(s) PO daily as needed not more than one time a day 08/31/2016 12/28/2016 Inactive Kenalog 40 mg/mL suspension for injection RxNorm: 3748831 1 Millil[place](s) Inj 08/12/2016 08/12/2016 Inactive Tricor 145 mg tablet RxNorm: 050316 1 Tablet(s) PO daily 05/21/2016 05/15/2017 Inactive atenolol 25 mg tablet RxNorm: 885468 1 Tablet(s) PO daily 05/21/2016 08/30/2016 Inactive sucralfate 1 gram tablet RxNorm: 527148 1 Tablet(s) PO TID 05/21/2016 05/15/2017 Inactive enalapril maleate 10 mg tablet RxNorm: 075692 1 Tablet(s) PO daily 04/26/2016 08/30/2016 Inactive perphenazine-amitriptyline 2 mg-10 mg tablet RxNorm: 530828 2 Tablet(s) PO daily 04/26/2016 04/20/2017 Inactive fluticasone 50 mcg/actuation nasal spray,suspension RxNorm: 9515692 1 [place] NASAL daily 04/26/2016 07/25/2017 Inactive Synthroid 100 mcg tablet RxNorm: 946793 1 Tablet(s) PO daily 02/09/2016 01/25/2017 Inactive Synthroid 100 mcg tablet RxNorm: 860527 1 Tablet(s) PO daily 02/09/2016 02/08/2016 Inactive Keflex 500 mg capsule RxNorm: 175540 1 Capsule(s) PO TID 01/28/2016 02/01/2016 Inactive hydrochlorothiazide 25 mg tablet RxNorm: 361574 TAKE 1 TABLET DAILY 01/07/2016 08/30/2016 Inactive enalapril maleate 10 mg tablet RxNorm: 421044 1 Tablet(s) PO daily 12/26/2015 04/25/2016 Inactive hydrochlorothiazide 25 mg tablet RxNorm: 078710 1 Tablet(s) PO daily 12/08/2015 08/30/2016 Inactive omeprazole 40 mg capsule,delayed release RxNorm: 922604 1 Capsule(s) PO daily 12/08/2015 10/18/2016 Inactive simvastatin 20 mg tablet RxNorm: 623885 1 Tablet(s) PO QHS 11/14/2015 11/07/2016 Inactive alendronate 70 mg tablet RxNorm: 057701 1 Tablet(s) PO weekly 10/31/2015 10/24/2016 Inactive Synthroid 112 mcg tablet RxNorm: 270749 1 Tablet(s) PO daily 07/16/2015 02/08/2016 Inactive sucralfate 1 gram tablet RxNorm: 704159 1 Tablet(s) PO TID 06/17/2015 05/20/2016 Inactive perphenazine-amitriptyline 2 mg-10 mg tablet RxNorm: 453763 2 Tablet(s) PO daily 06/17/2015 04/25/2016 Inactive fluticasone 50 mcg/actuation nasal spray,suspension RxNorm: 8867867 1 [place] NASAL daily 06/17/2015 04/25/2016 Inactive fluorouracil 5 % topical cream RxNorm: 132853 APPLY 1 APPLICATION TOPICALLY TWO TIMES A DAY 06/16/2015 06/25/2015 Inactive fluticasone 50 mcg/actuation nasal spray,suspension RxNorm: 214486 1 [place] NASAL daily 06/12/2015 06/16/2015 Inactive atenolol 25 mg tablet RxNorm: 499548 1 Tablet(s) PO daily 05/14/2015 05/07/2016 Inactive Tricor 145 mg tablet RxNorm: 009400 1 Tablet(s) PO daily 04/23/2015 04/16/2016 Inactive Synthroid 125 mcg tablet RxNorm: 631103 1 Tablet(s) PO daily 03/31/2015 07/15/2015 Inactive fluorouracil 5 % topical cream RxNorm: 130257 1 Application TOP BID 03/31/2015 04/09/2015 Inactive Synthroid 137 mcg tablet RxNorm: 660968 1 Tablet(s) PO daily 12/25/2014 12/24/2014 Inactive Synthroid 137 mcg tablet RxNorm: 539599 1 Tablet(s) PO daily 12/25/2014 03/30/2015 Inactive Voltaren 1 % topical gel RxNorm: 688628 4 Gram(s) TOP QID 12/23/2014 04/21/2015 Inactive alendronate 70 mg tablet RxNorm: 433953 1 Tablet(s) PO weekly 12/23/2014 12/22/2014 Inactive alendronate 70 mg tablet RxNorm: 143390 1 Tablet(s) PO weekly 12/23/2014 10/30/2015 Inactive Fosamax 70 mg tablet RxNorm: 679298 1 Tablet(s) PO weekly QW 12/23/2014 01/27/2016 Inactive omeprazole 40 mg capsule,delayed release RxNorm: 510192 1 Capsule(s) PO daily 12/18/2014 12/07/2015 Inactive omeprazole 40 mg capsule,delayed release RxNorm: 647741 1 Capsule(s) PO daily 12/18/2014 12/17/2014 Inactive hydrochlorothiazide 25 mg tablet RxNorm: 102741 1 Tablet(s) PO daily 12/18/2014 12/17/2014 Inactive hydrochlorothiazide 25 mg tablet RxNorm: 278430 1 Tablet(s) PO daily 12/18/2014 12/07/2015 Inactive L-Lysine 1,000 mg tablet RxNorm: 943061 1 Tablet(s) PO daily No Start Date Active folic acid 400 mcg tablet RxNorm: 538430 1 Tablet(s) PO daily No Start Date Active B12 1000 mcg RxNorm: 1/2 Tablet(s) PO daily No Start Date Active Vitamin D3 1,000 unit chewable tablet RxNorm: 442196 1 Tablet(s) PO daily No Start Date Active diltiazem 120 mg tablet RxNorm: 603939 1 Tablet(s) PO daily No Start Date Active metoprolol succinate ER 100 mg tablet,extended release 24 hr RxNorm: 661366 1 Tablet(s) PO daily No Start Date 09/16/2016 Inactive enalapril maleate 10 mg tablet RxNorm: 595959 1 Tablet(s) PO daily No Start Date 12/25/2015 Inactive perphenazine-amitriptyline 2 mg-10 mg tablet RxNorm: 605587 2 Tablet(s) PO daily No Start Date 06/16/2015 Inactive sucralfate 1 gram tablet RxNorm: 224131 1 Tablet(s) PO TID No Start Date 06/16/2015 Inactive hydrochlorothiazide 25 mg tablet RxNorm: 963383 1 Tablet(s) PO daily No Start Date 08/30/2016 Inactive vitamin E (dl, acetate) 400 unit capsule RxNorm: 655277 1 Capsule(s) PO daily No Start Date 03/05/2018 Inactive sotalol 80 mg tablet RxNorm: 7710177 1 Tablet(s) PO BID No Start Date 01/25/2017 Inactive Synthroid 150 mcg tablet RxNorm: 804404 1 Tablet(s) PO daily No Start Date 12/24/2014 Inactive simvastatin 20 mg tablet RxNorm: 230026 1 Tablet(s) PO daily No Start Date 11/13/2015 Inactive Vitamin C RxNorm: PO 1000mg qd No Start Date 03/05/2018 Inactive Fosamax 70 mg tablet RxNorm: 295628 1 Tablet(s) PO weekly No Start Date 12/22/2014 Inactive Tricor 145 mg tablet RxNorm: 514403 1 Tablet(s) PO daily No Start Date 04/22/2015 Inactive diltiazem ER 180 mg capsule,24 hr,extended release RxNorm: 242241 1 Capsule(s) PO daily No Start Date 03/05/2018 Inactive diltiazem ER 240 mg capsule,extended release RxNorm: 314417 1 Capsule(s) PO BID No Start Date 01/25/2017 Inactive Eliquis 5 mg tablet RxNorm: 5161523 1 Tablet(s) PO BID No Start Date 01/25/2017 Inactive fluticasone 50 mcg/actuation nasal spray,suspension RxNorm: 671972 1 [place] NASAL daily No Start Date 06/11/2015 Inactive atenolol 25 mg tablet RxNorm: 297968 1 Tablet(s) PO daily No Start Date 05/13/2015 Inactive Medication Administered Medication Codes Instructions Start Date Status Kenalog 40 mg/mL suspension for injection RxNorm: 6768192 1Milliliter 08/12/2016 No longer Active Immunizations Vaccine [...] Result Date Hgb & Hct Ord65 HGB 8.7 g/dl [...] 06/01/2018 Metabolic Ord15 CALCIUM 8.8 mg/dL 06/01/2018 Cbc With Differential Ord2 WBC 5.16 [...] 15.7 % 06/01/2018 Cbc With Differential Ord2 [place]% 12.8 % 06/01/2018 Cbc With Differential Ord2 MCH 24.9 pg 06/01/2018 Cbc With Differential Ord2 Eos% [...] 0.81 K/ul 06/01/2018 Cbc With Differential Ord2 [place] ABS# 0.7 K/ul 06/01/2018 Cbc With Differential Ord2 Eos ABS# 0.2 K/ul 06/01/2018 Cbc With Differential Ord2 Baso ABS# 0.1 K/ul 06/01/2018 Tibc Ord40 Iron 15 ug/dl 06/01/2018 Tibc Ord40 UIBC 593 ug/dL 06/01/2018 Tibc Ord40 TIBC 608 ug/dL 06/01/2018 Tibc Ord40 Fe-%Sat 2.5 % 06/01/2018 Cbc With Differential Ord2 WBC 5.88 K/ul 03/17/2018 Cbc With Differential Ord2 RBC 3.88 M/ul 03/17/2018 Cbc With Differential Ord2 HGB 11.6 g/dl 03/17/2018 Cbc With Differential Ord2 HCT 36.3 % 03/17/2018 Cbc With Differential Ord2 Neut% 68.0 % 03/17/2018 Cbc With Differential Ord2 Lymph% 15.3 % 03/17/2018 Cbc With Differential Ord2 MCV 93.6 fl 03/17/2018 Cbc With Differential Ord2 MCH 29.9 pg 03/17/2018 Cbc With Differential Ord2 [place]% 13.3 % 03/17/2018 Cbc With Differential Ord2 [...] 0.90 K/ul 03/17/2018 Cbc With Differential Ord2 [place] ABS# 0.8 K/ul 03/17/2018 Cbc With Differential Ord2 Eos ABS# 0.2 K/ul 03/17/2018 Cbc With Differential Ord2 Baso ABS# 0.0 K/ul 03/17/2018 Urine Culture Ucult Complete NO Growth Day 2 02/24/2018 Urine Culture Ucult Preliminary NO Growth Day 1 02/24/2018 Comp Metabolic Udo528 NA 136 mEq/L 02/22/2018 Comp Metabolic Sub007 K 4.4 mEq/L 02/22/2018 Comp Metabolic Mdz578 CL 102 mEq/L 02/22/2018 Comp Metabolic Ngm830 CO2 23.0 mEq/L 02/22/2018 Comp Metabolic Lgs159 ANION GAP 15 02/22/2018 Comp Metabolic Dlj525 GLUCOSE 94 mg/dL 02/22/2018 Comp Metabolic Dzg058 Creat 1.2 mg/dL 02/22/2018 Comp Metabolic Yuc152 eGFR 46 ml/min/1.73m2 02/22/2018 Comp Metabolic Ilz041 BUN 31 mg/dL 02/22/2018 Comp Metabolic Xjc727 B/C Ratio 25.8 Ratio 02/22/2018 Comp Metabolic Akz055 CALCIUM 9.2 mg/dL 02/22/2018 Comp Metabolic Zpk877 ALK PHOS 34 U/L 02/22/2018 Comp Metabolic Lrm891 AST(SGOT) 18 U/L 02/22/2018 Comp Metabolic Ffp479 ALT(SGPT) 8 U/L 02/22/2018 Comp Metabolic Axw900 BILI T 0.4 mg/dL 02/22/2018 Comp Metabolic Rwd139 ALBUMIN 3.6 g/dL 02/22/2018 Comp Metabolic Mai144 TPRO 6.2 g/dL 02/22/2018 Comp Metabolic Qzj063 GLOB 2.6 g/dL 02/22/2018 Comp Metabolic Lfs227 A/G Ratio 1.4 Ratio 02/22/2018 Comp Metabolic Vla712 Osmo 278 mOsmo 02/22/2018 Free T4 Tbc887 FREE T4 1.22 ng/dL 02/22/2018 Tsh Ord6 TSH (3rd IS) 0.66 uIU/mL 02/22/2018 Cbc With Differential Ord2 WBC 5.92 K/ul 02/22/2018 Cbc With Differential Ord2 RBC 2.91 M/ul 02/22/2018 Cbc With Differential Ord2 HGB 8.8 g/dl 02/22/2018 Cbc With Differential Ord2 HCT 27.2 % 02/22/2018 Cbc With Differential Ord2 Neut% 69.7 % 02/22/2018 Cbc With Differential Ord2 MCV 93.5 fl 02/22/2018 Cbc With Differential Ord2 Lymph% 14.5 % 02/22/2018 Cbc With Differential Ord2 [place]% 11.5 % 02/22/2018 Cbc With Differential Ord2 [...] 0.86 K/ul 02/22/2018 Cbc With Differential Ord2 [place] ABS# 0.7 K/ul 02/22/2018 Cbc With Differential Ord2 Eos ABS# 0.2 K/ul 02/22/2018 Cbc With Differential Ord2 Baso ABS# 0.1 K/ul 02/22/2018 Tsh Ord6 TSH (3rd IS) 0.51 uIU/mL 10/27/2017 Comp Metabolic Rcn478 NA 135 mEq/L 10/27/2017 Comp Metabolic Isb051 K 4.7 mEq/L 10/27/2017 Comp Metabolic Cut517 CL 101 mEq/L 10/27/2017 Comp Metabolic Fqk795 CO2 23.0 mEq/L 10/27/2017 Comp Metabolic Frn221 ANION GAP 16 10/27/2017 Comp Metabolic Lrh331 GLUCOSE 84 mg/dL 10/27/2017 Comp Metabolic Crh347 Creat 1.2 mg/dL 10/27/2017 Comp Metabolic Pyx073 eGFR 46 ml/min/1.73m2 10/27/2017 Comp Metabolic Uaj886 BUN 30 mg/dL 10/27/2017 Comp Metabolic Jhn638 B/C Ratio 25.2 Ratio 10/27/2017 Comp Metabolic Hsc494 CALCIUM 9.4 mg/dL 10/27/2017 Comp Metabolic Rsb087 ALK PHOS 30 U/L 10/27/2017 Comp Metabolic Glr521 AST(SGOT) 25 U/L 10/27/2017 Comp Metabolic Pdb325 ALT(SGPT) 12 U/L 10/27/2017 Comp Metabolic Qvp777 BILI T 0.5 mg/dL 10/27/2017 Comp Metabolic Aqn641 ALBUMIN 3.7 g/dL 10/27/2017 Comp Metabolic Jhn247 TPRO 6.5 g/dL 10/27/2017 Comp Metabolic Awq968 GLOB 2.8 g/dL 10/27/2017 Comp Metabolic Mkq999 A/G Ratio 1.3 Ratio 10/27/2017 Comp Metabolic Qlf436 Osmo 275 mOsmo 10/27/2017 Cbc With Differential Ord2 WBC 4.97 [...] 30.7 pg 10/27/2017 Cbc With Differential Ord2 [place]% 11.3 % 10/27/2017 Cbc With Differential Ord2 [...] 1.16 K/ul 10/27/2017 Cbc With Differential Ord2 [place] ABS# 0.6 K/ul 10/27/2017 Cbc With Differential Ord2 Eos ABS# 0.2 K/ul 10/27/2017 Cbc With Differential Ord2 Baso ABS# 0.0 K/ul 10/27/2017 Tibc Ord40 Iron 123 ug/dl 10/27/2017 Tibc Ord40 UIBC 319 ug/dL 10/27/2017 Tibc Ord40 TIBC 442 ug/dL 10/27/2017 Tibc Ord40 Fe-%Sat 27.8 % 10/27/2017 Free T4 Rpd284 FREE T4 1.11 ng/dL 10/27/2017 Lipid Ord30 CHOL 132 mg/dL 10/27/2017 Lipid Ord30 HDL 30.0 mg/dl 10/27/2017 Lipid Ord30 TRIG 213 mg/dL 10/27/2017 Lipid Ord30 LDL 59 mg/dL 10/27/2017 Lipid Ord30 C/HDL 4.4 Ratio 10/27/2017 Hgb & Hct Ord65 HGB 12.2 g/dl 07/29/2017 Hgb & Hct Ord65 HCT 38.8 % 07/29/2017 Tsh Ord6 TSH (3rd IS) 0.46 uIU/mL 07/26/2017 Ferritin Ord22 FERRITIN 83.6 ng/mL 07/26/2017 Free T4 Him081 FREE T4 1.00 ng/dL 07/26/2017 Tibc Ord40 Iron 79 ug/dl 07/26/2017 Tibc Ord40 UIBC 380 ug/dL 07/26/2017 Tibc Ord40 TIBC 459 ug/dL 07/26/2017 Tibc Ord40 Fe-%Sat 17.2 % 07/26/2017 Tibc Ord40 Iron 32 ug/dl 05/20/2017 Tibc Ord40 UIBC 601 ug/dL 05/20/2017 Tibc Ord40 TIBC 633 ug/dL 05/20/2017 Tibc Ord40 Fe-%Sat 5.1 % 05/20/2017 Hgb & Hct Ord65 HGB 9.4 g/dl 05/20/2017 Hgb & Hct Ord65 HCT 29.8 % 05/20/2017 Ferritin Ord22 FERRITIN 5.5 ng/mL 05/20/2017 Free T4 Lqj202 FREE T4 1.08 ng/dL 08/02/2016 Comp Metabolic Kth110 NA 139 mEq/L 08/02/2016 Comp Metabolic Idm484 K 5.2 mEq/L 08/02/2016 Comp Metabolic Dpw861 CL 108 mEq/L 08/02/2016 Comp Metabolic Zdb758 CO2 22.0 mEq/L 08/02/2016 Comp Metabolic Ioo617 ANION GAP 14 08/02/2016 Comp Metabolic Vnc873 GLUCOSE 103 mg/dL 08/02/2016 Comp Metabolic Ljg672 Creat 1.1 mg/dL 08/02/2016 Comp Metabolic Wri894 eGFR 54 ml/min/1.73m2 08/02/2016 Comp Metabolic Wse863 BUN 26 mg/dL 08/02/2016 Comp Metabolic Feh724 B/C Ratio 24.8 Ratio 08/02/2016 Comp Metabolic Jlw079 CALCIUM 9.4 mg/dL 08/02/2016 Comp Metabolic Ija671 ALK PHOS 41 U/L 08/02/2016 Comp Metabolic Owq520 AST(SGOT) 18 U/L 08/02/2016 Comp Metabolic Tos017 ALT(SGPT) 10 U/L 08/02/2016 Comp Metabolic Mrx295 BILI T 0.3 mg/dL 08/02/2016 Comp Metabolic Syr021 ALBUMIN 3.7 g/dL 08/02/2016 Comp Metabolic Xtd761 TPRO 6.5 g/dL 08/02/2016 Comp Metabolic Svq100 GLOB 2.8 g/dL 08/02/2016 Comp Metabolic Nei289 A/G Ratio 1.3 Ratio 08/02/2016 Comp Metabolic Rvt670 Osmo 283 mOsmo 08/02/2016 Lipid Ord30 CHOL 142 mg/dL 08/02/2016 Lipid Ord30 HDL 40.0 mg/dl 08/02/2016 Lipid Ord30 TRIG 169 mg/dL 08/02/2016 Lipid Ord30 LDL 68 mg/dL 08/02/2016 Lipid Ord30 C/HDL 3.6 Ratio 08/02/2016 Cbc With Differential Ord2 WBC 7.85 K/ul 08/02/2016 Cbc With Differential Ord2 RBC 4.19 M/ul 08/02/2016 Cbc With Differential Ord2 HGB 13.0 g/dl 08/02/2016 Cbc With Differential Ord2 Neut% 68.2 % 08/02/2016 Cbc With Differential Ord2 HCT 39.6 % 08/02/2016 Cbc With Differential Ord2 MCV 94.5 fl 08/02/2016 Cbc With Differential Ord2 Lymph% 18.3 % 08/02/2016 Cbc With Differential Ord2 MCH 31.0 pg 08/02/2016 Cbc With Differential Ord2 [place]% 9.4 % 08/02/2016 Cbc With Differential Ord2 Eos% 3.2 % 08/02/2016 Cbc With Differential Ord2 MCHC 32.8 pg 08/02/2016 Cbc With Differential Ord2 PLT 152 K/ul 08/02/2016 Cbc With Differential Ord2 Baso% 0.9 % 08/02/2016 Cbc With Differential Ord2 RDW 16.0 % 08/02/2016 Cbc With Differential Ord2 Neut ABS# 5.35 K/ul 08/02/2016 Cbc With Differential Ord2 Lymph ABS# 1.44 K/ul 08/02/2016 Cbc With Differential Ord2 [place] ABS# 0.7 K/ul 08/02/2016 Cbc With Differential Ord2 Eos ABS# 0.3 K/ul 08/02/2016 Cbc With Differential Ord2 Baso ABS# 0.1 K/ul 08/02/2016 Tsh Ord6 hTSH II 0.21 uIU/mL 08/02/2016 Tsh Ord6 hTSH II 0.35 uIU/mL 05/13/2016 Free T4 Dtf551 FREE T4 0.78 ng/dL 05/13/2016 Free T4 Phv561 FREE T4 1.13 ng/dL 01/28/2016 Tsh Ord6 [...] 93.1 fl 07/14/2015 Cbc With Differential Ord2 MCH 30.2 pg 07/14/2015 Cbc With Differential Ord2 [place]% 9.1 % 07/14/2015 Cbc With Differential Ord2 MCHC 32.5 pg 07/14/2015 Cbc With Differential Ord2 Eos% 2.5 % 07/14/2015 Cbc With Differential Ord2 Baso% 0.5 % 07/14/2015 Cbc With Differential Ord2 PLT 344 K/ul 07/14/2015 Cbc With Differential Ord2 RDW 15.1 % 07/14/2015 Cbc With Differential Ord2 Neut ABS# 4.78 K/ul 07/14/2015 Cbc With Differential Ord2 Lymph ABS# 1.80 K/ul 07/14/2015 Cbc With Differential Ord2 [place] ABS# 0.7 K/ul 07/14/2015 Cbc With Differential Ord2 Eos ABS# 0.2 K/ul 07/14/2015 Cbc With Differential Ord2 Baso ABS# 0.0 K/ul 07/14/2015 Cbc With Differential Ord2 New Analyzer Notice Please note new ref ranges starting 06-04-2015 due to implemntation of new five part differential hematolgy analyzer. 07/14/2015 Tsh Ord6 hTSH II 0.23 uIU/mL 07/14/2015 Lipid Ord30 CHOL 143 mg/dL 07/14/2015 Lipid Ord30 HDL 47.0 mg/dl 07/14/2015 Lipid Ord30 TRIG 129 mg/dL 07/14/2015 Lipid Ord30 LDL 70 mg/dL 07/14/2015 Lipid Ord30 C/HDL 3.0 Ratio 07/14/2015 Comp Metabolic Sdr364 NA 136 mEq/L 07/14/2015 Comp Metabolic Eex563 K 4.4 mEq/L 07/14/2015 Comp Metabolic Qaa090 CL 101 mEq/L 07/14/2015 Comp Metabolic Ggo424 CO2 27.0 mEq/L 07/14/2015 Comp Metabolic Bzm716 ANION GAP 12 07/14/2015 Comp Metabolic Ysu640 GLUCOSE 97 mg/dL 07/14/2015 Comp Metabolic Bsv342 Creat 1.0 mg/dL 07/14/2015 Comp Metabolic Bgr937 eGFR 56 ml/min/1.73m2 07/14/2015 Comp Metabolic Hdc671 BUN 27 mg/dL 07/14/2015 Comp Metabolic Tef460 B/C Ratio 26.7 Ratio 07/14/2015 Comp Metabolic Rny532 CALCIUM 9.3 mg/dL 07/14/2015 Comp Metabolic Ktj332 ALK PHOS 33 U/L 07/14/2015 Comp Metabolic Wyx424 AST(SGOT) 14 U/L 07/14/2015 Comp Metabolic Kjf755 ALT(SGPT) 8 U/L 07/14/2015 Comp Metabolic Nse660 BILI T 0.4 mg/dL 07/14/2015 Comp Metabolic Baj314 ALBUMIN 3.8 g/dL 07/14/2015 Comp Metabolic Wfg573 TPRO 6.6 g/dL 07/14/2015 Comp Metabolic Icv919 GLOB 2.8 g/dL 07/14/2015 Comp Metabolic Pro544 A/G Ratio 1.4 Ratio 07/14/2015 Comp Metabolic Tzs597 Osmo 277 mOsmo 07/14/2015 Free T4 Wnq708 FREE T4 1.19 ng/dL 07/14/2015 Cbc With [...] With Differential Ord2 RDW 14.7 % 03/26/2015 Tsh Ord6 hTSH II 0.20 uIU/mL 03/26/2015 Free T4 Owv340 FREE T4 1.22 ng/dL 03/26/2015 Comp Metabolic Zlw412 NA 135 mEq/L 03/26/2015 Comp Metabolic Qwv538 K 5.0 mEq/L 03/26/2015 Comp Metabolic Cnq488 CL 99 mEq/L 03/26/2015 Comp Metabolic Sbt938 CO2 27.0 mEq/L 03/26/2015 Comp Metabolic Jmq778 ANION GAP 14 03/26/2015 Comp Metabolic Bva302 GLUCOSE 88 mg/dL 03/26/2015 Comp Metabolic Zhw460 Creat 1.1 mg/dL 03/26/2015 Comp Metabolic Ioo686 eGFR 50 ml/min/1.73m2 03/26/2015 Comp Metabolic Prk693 BUN 27 mg/dL 03/26/2015 Comp Metabolic Smf392 B/C Ratio 24.1 Ratio 03/26/2015 Comp Metabolic Kri081 CALCIUM 9.9 mg/dL 03/26/2015 Comp Metabolic Vry281 ALK PHOS 30 U/L 03/26/2015 Comp Metabolic Qqe986 AST(SGOT) 16 U/L 03/26/2015 Comp Metabolic Eck300 ALT(SGPT) 8 U/L 03/26/2015 Comp Metabolic Ncd530 BILI T 0.4 mg/dL 03/26/2015 Comp Metabolic Wnz222 ALBUMIN 3.9 g/dL 03/26/2015 Comp Metabolic Emv956 TPRO 6.4 g/dL 03/26/2015 Comp Metabolic Kjo798 GLOB 2.5 g/dL 03/26/2015 Comp Metabolic Icj621 A/G Ratio 1.6 Ratio 03/26/2015 Comp Metabolic Irt152 Osmo 275 mOsmo 03/26/2015 Lipid Ord30 CHOL 147 mg/dL 03/26/2015 Lipid Ord30 HDL 43.0 mg/dl 03/26/2015 Lipid Ord30 TRIG 146 mg/dL 03/26/2015 Lipid Ord30 LDL 75 mg/dL 03/26/2015 Lipid Ord30 C/HDL 3.4 Ratio 03/26/2015 Vitamin D 25 Oh Ogs0494 VITAMIN D, 25 HYDROXY 51.09 ng/mL 12/25/2014 Tsh Ord6 hTSH II 0.09 uIU/mL 12/23/2014 Free T4 Jdy881 FREE T4 1.30 ng/dL 12/23/2014 Comp Metabolic Jhe913 NA 135 mEq/L 12/23/2014 Comp Metabolic Tue622 K 4.7 mEq/L 12/23/2014 Comp Metabolic Ynr139 CL 100 mEq/L 12/23/2014 Comp Metabolic Yha435 CO2 23.0 mEq/L 12/23/2014 Comp Metabolic Lcc031 ANION GAP 17 12/23/2014 Comp Metabolic Rtl975 GLUCOSE 93 mg/dL 12/23/2014 Comp Metabolic Lax030 Creat 1.1 mg/dL 12/23/2014 Comp Metabolic Zdl920 eGFR 53 ml/min/1.73m2 12/23/2014 Comp Metabolic Qfz050 BUN 26 mg/dL 12/23/2014 Comp Metabolic Aea141 B/C Ratio 24.3 Ratio 12/23/2014 Comp Metabolic Cwo895 CALCIUM 9.5 mg/dL 12/23/2014 Comp Metabolic Wgw869 ALK PHOS 27 U/L 12/23/2014 Comp Metabolic Ofg167 AST(SGOT) 16 U/L 12/23/2014 Comp Metabolic Pqu126 ALT(SGPT) 8 U/L 12/23/2014 Comp Metabolic Ndb460 BILI T 0.4 mg/dL 12/23/2014 Comp Metabolic Rnm293 ALBUMIN 3.9 g/dL 12/23/2014 Comp Metabolic Xas927 TPRO 6.7 g/dL 12/23/2014 Comp Metabolic Oyg990 GLOB 2.8 g/dL 12/23/2014 Comp Metabolic Mjw490 A/G Ratio 1.4 Ratio 12/23/2014 Comp Metabolic Kai740 Osmo 275 mOsmo 12/23/2014 Review of Systems [...] affect 11/29/2017 None Full Exam - General 1995 Constitutional general appearance Overall: well developed 10/27/2017 [...] inspection of skin Consistency: thick 03/31/2015 left orthodoxy and left nasal bridge - actinic keratosis [...] SUBSEQ VISIT CPT- 4: G0439 05/05/2018 TOBACCO-USE FOREST FIRE LOOKOUT 3-[address]: 703103565 CPT-4: G0436 04/11/2017 PNEUMOCOCCAL VACC [address]: 34092188 CPT-4: 15960 02/09/2017 FLU VACC PRSV FREE INC ANTIG CPT-4: 33348 02/09/2017 ADMIN INFLUENZA VIRUS VAC CPT-4: G0008 02/09/2017 ADMIN PNEUMOCOCCAL VACCINE SNOMED CT: 07340304 CPT-4: G0009 02/09/2017 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-USE FOREST FIRE LOOKOUT 3-[address]: 902119494 CPT-4: G0436 02/07/2017 TOBACCO-USE FOREST FIRE LOOKOUT 3-[address]: 241357987 CPT-4: G0436 10/19/2016 TOBACCO-USE FOREST FIRE LOOKOUT 3-[address]: 866125077 CPT-4: G0436 08/31/2016 TRIAMCINOLONE ACET INJ NOS CPT-4: J3301 08/12/2016 TOBACCO-USE FOREST FIRE LOOKOUT 3-[address]: 561748158 CPT-4: G0436 07/28/2016 ADMIN INFLUENZA VIRUS VAC CPT-4: G0008 01/28/2016 FLU VACC 4 JULISA 3 YRS PLUS IM SNOMED CT: 65564770 CPT-4: 12564 01/28/2016 TOBACCO-USE FOREST FIRE LOOKOUT 3-10 MIN SNOMED CT: 312855156 CPT-4: G0436 07/29/2015 Vital Signs Date Vital 06/05/2018 Blood Pressure 1: 122/60 Code: 8480-6 BMI: 25.4 Code: 93631-9 Heart Rate 1: 74 bpm Height: 5'4" SpO2: 98% Weight: 148 lbs 05/05/2018 Blood Pressure 1: 130/64 Code: 8480-6 BMI: 25.1 Code: 24155-1 Heart Rate 1: 72 bpm Height: 5'4" SpO2: 97% Weight: 146 lbs 04/03/2018 Blood Pressure 1: 142/80 Code: 8480-6 BMI: 25.2 Code: 02498-8 Heart Rate 1: 99 bpm Height: 5'4" SpO2: 97% Weight: 147 lbs 03/06/2018 Blood Pressure 1: 140/80 Code: 8480-6 BMI: 26.1 Code: 93365-8 Heart Rate 1: 71 bpm Height: 5'4" SpO2: 98% Weight: 152 lbs 02/22/2018 Blood Pressure 1: 146/68 Code: 8480-6 BMI: 26.6 Code: 53957-5 Heart Rate 1: 88 bpm Height: 5'4" SpO2: 97% Weight: 155 lbs 12/13/2017 Blood Pressure 1: 132/68 Code: 8480-6 BMI: 26.6 Code: 22165-4 Heart Rate 1: 72 bpm Height: 5'4" SpO2: 94% Weight: 154 lbs 14 oz 11/29/2017 Blood Pressure 1: 130/64 Code: 8480-6 BMI: 26.1 Code: 90125-4 Heart Rate 1: 81 bpm Height: 5'4" SpO2: 94% Weight: 152 lbs 10/27/2017 Blood Pressure 1: 120/62 Code: 8480-6 BMI: 25.9 Code: 21428-4 Heart Rate 1: 70 bpm Height: 5'4" SpO2: 96% Weight: 151 lbs 07/26/2017 Blood Pressure 1: 146/70 Code: 8480-6 BMI: 26.3 Code: 15217-3 Heart Rate 1: 69 bpm Height: 5'4" SpO2: 98% Weight: 153 lbs 05/26/2017 Blood Pressure 1: 142/76 Code: 8480-6 BMI: 26.4 Code: 62856-0 Heart Rate 1: 59 bpm Height: 5'4" SpO2: 99% Weight: 154 lbs 04/11/2017 Blood Pressure 1: 134/64 Code: 8480-6 BMI: 26.6 Code: 57803-9 Heart Rate 1: 65 bpm Height: 5'4" SpO2: 98% Weight: 155 lbs 02/07/2017 Blood Pressure 1: 120/72 Code: 8480-6 Heart Rate 1: 72 bpm Height: 5'4" SpO2: 96% Weight: 01/26/2017 Blood Pressure 1: 146/68 Code: 8480-6 BMI: 26.4 Code: 41200-5 Heart Rate 1: 96 bpm Height: 5'4" SpO2: 97% Weight: 154 lbs 10/19/2016 Blood Pressure 1: 144/76 Code: 8480-6 BMI: 25.8 Code: 10942-5 Heart Rate 1: 68 bpm Height: 5'4" SpO2: 96% Weight: 150 lbs 8 oz 09/22/2016 Blood Pressure 1: 122/80 Code: 8480-6 BMI: 26.1 Code: 30446-8 Heart Rate 1: 111 bpm Height: 5'4" SpO2: 97% Weight: 152 lbs 08/31/2016 Blood Pressure 1: 152/82 Code: 8480-6 BMI: 27.1 Code: 46833-1 Heart Rate 1: 118 bpm Height: 5'4" SpO2: 96% Weight: 158 lbs 08/12/2016 Blood Pressure 1: 146/78 Code: 8480-6 BMI: 26.9 Code: 46642-7 Heart Rate 1: 68 bpm Height: 5'4" SpO2: 97% Weight: 157 lbs 07/28/2016 Blood Pressure 1: 128/64 Code: 8480-6 BMI: 27.1 Code: 16845-2 Heart Rate 1: 63 bpm Height: 5'4" SpO2: 97% Weight: 158 lbs 01/28/2016 Blood Pressure 1: 130/70 Code: 8480-6 BMI: 27.3 Code: 24513-8 Heart Rate 1: 60 bpm Height: 5'4" SpO2: 95% Weight: 159 lbs 07/29/2015 Blood Pressure 1: 136/80 Code: 8480-6 BMI: 28.1 Code: 30864-8 Heart Rate 1: 68 bpm Height: 5'4" SpO2: 96% Weight: 163 lbs 8 oz 03/31/2015 Blood Pressure 1: 138/88 Code: 8480-6 BMI: 27.5 Code: 79231-4 Heart Rate 1: 72 bpm Height: 5'4" Weight: 160 lbs 12/23/2014 Blood Pressure 1: 138/68 Code: 8480-6 BMI: 27.1 Code: 42659-0 Heart Rate 1: 63 bpm Height: 5'4" [...] data Encounters Encounter Performer Location Codes Date ([id number]) 33590 EST. PATIENT, LEVEL IV Diagnosis: Other specified anemias[ICD10: D64.89] Diagnosis: Other insomnia[ICD10: G47.09] Diagnosis: Atrophy of thyroid (acquired)[ICD10: E03.4] Diagnosis: Allergic urticaria[ICD10: L50.0] Kandi Cabrera MD, [facility] CPT-4: 14911 06/05/2018 ([id number]) 48214 EST. PATIENT, LEVEL IV Diagnosis: Essential (primary) hypertension[ICD10: I10] Diagnosis: Nonrheumatic aortic (valve) stenosis[ICD10: I35.0] Diagnosis: Atrophy of thyroid (acquired)[ICD10: E03.4] Diagnosis: Chronic atrial fibrillation[ICD10: I48.2] Kandi Cabrera MD, [facility] CPT-4: 71146 04/03/2018 ([id number]) 36214 EST. PATIENT, LEVEL IV Diagnosis: Essential (primary) hypertension[ICD10: I10] Diagnosis: Chronic atrial fibrillation[ICD10: I48.2] Diagnosis: Nonrheumatic aortic (valve) stenosis[ICD10: I35.0] Diagnosis: Age-related osteoporosis without current pathological fracture[ICD10: M81.0] Kandi Cabrera MD, [facility] CPT-4: 82535 03/06/2018 92062 EST. PATIENT, LEVEL III Diagnosis: Low back pain[ICD10: M54.5] Diagnosis: Dysuria[ICD10: R30.0] Diagnosis: Gastro-esophageal reflux disease without esophagitis[ICD10: K21.9] Payton Cabrera MD, [facility] CPT-4: 50459 02/22/2018 ([id number]) 51298 EST. PATIENT, LEVEL III Diagnosis: Atrophy of thyroid (acquired)[ICD10: E03.4] Diagnosis: Other iron deficiency anemias[ICD10: D50.8] Diagnosis: Epigastric pain[ICD10: R10.13] Kandi Cabrera MD, [facility] CPT-4: 86816 12/13/2017 ([id number]) 68032 EST. PATIENT, LEVEL IV Diagnosis: Diverticulitis of large intestine without perforation or abscess without bleeding[ICD10: K57.32] Kandi Cabrera MD, [facility] CPT-4: 41922 11/29/2017 ([id number]) 68925 EST. PATIENT, LEVEL IV Diagnosis: Atrophy of thyroid (acquired)[ICD10: E03.4] Diagnosis: Other iron deficiency anemias[ICD10: D50.8] Diagnosis: Epigastric pain[ICD10: R10.13] Diagnosis: Right lower quadrant pain[ICD10: R10.31] Diagnosis: Left lower quadrant pain[ICD10: R10.32] Kandi Cabrera MD, [facility] CPT-4: 49547 10/27/2017 22550 EST. PATIENT, LEVEL IV Diagnosis: Atrophy of thyroid (acquired)[ICD10: E03.4] Diagnosis: Other iron deficiency anemias[ICD10: D50.8] Diagnosis: Essential (primary) hypertension[ICD10: I10] Diagnosis: Gastro-esophageal reflux disease without esophagitis[ICD10: K21.9] Payton Cabrera MD, [facility] CPT-4: 01489 07/26/2017 ([id number]) 00107 EST. PATIENT, LEVEL IV Diagnosis: Other iron deficiency anemias[ICD10: D50.8] Diagnosis: Atrophy of thyroid (acquired)[ICD10: E03.4] Diagnosis: Tobacco use[ICD10: Z72.0] Diagnosis: Essential (primary) hypertension[ICD10: I10] Diagnosis: Low back pain[ICD10: M54.5] Kandi Cabrera MD [facility] CPT-4: 94167 05/26/2017 ([id number]) 95090 EST. PATIENT, LEVEL IV Diagnosis: Shortness of breath[ICD10: R06.02] Diagnosis: Tobacco use[ICD10: Z72.0] Diagnosis: Chronic atrial fibrillation[ICD10: I48.2] Kandi Cabrera MD [facility] CPT-4: 33775 04/11/2017 ([id number]) 15390 EST. PATIENT, LEVEL III Diagnosis: Unsteadiness on feet[ICD10: R26.81] Diagnosis: Tobacco use[ICD10: Z72.0] Kandi Cabrera MD [facility] CPT-4: 95547 02/07/2017 ([id number]) 42802 EST. PATIENT, LEVEL IV Diagnosis: Cough[ICD10: R05] Diagnosis: Essential (primary) hypertension[ICD10: I10] Diagnosis: Chronic atrial fibrillation[ICD10: I48.2] Diagnosis: Unsteadiness on feet[ICD10: R26.81] Kandi Cabrera MD [facility] CPT- 4: 78631 01/26/2017 ([id number]) 09548 EST. PATIENT, LEVEL IV Diagnosis: Essential (primary) hypertension[ICD10: I10] Diagnosis: Atrophy of thyroid (acquired)[ICD10: E03.4] Diagnosis: Tobacco use[ICD10: Z72.0] Diagnosis: Chronic atrial fibrillation[ICD10: I48.2] Diagnosis: Mixed hyperlipidemia[ICD10: E78.2] Kandi Cabrera MD [facility] CPT- 4: 87781 10/19/2016 ([id number]) 50678 EST. PATIENT, LEVEL IV Diagnosis: Atrophy of thyroid (acquired)[ICD10: E03.4] Diagnosis: Mixed hyperlipidemia[ICD10: E78.2] Diagnosis: Essential (primary) hypertension[ICD10: I10] Kandi Cabrera MD [facility] CPT-4: 55186 09/22/2016 ([id number]) 99409 EST. PATIENT, LEVEL IV Diagnosis: Essential (primary) hypertension[ICD10: I10] Diagnosis: Atrophy of thyroid (acquired)[ICD10: E03.4] Diagnosis: Chronic atrial fibrillation[ICD10: I48.2] Kandi Cabrera MD, [facility] CPT-4: 92569 08/31/2016 ([id number]) 69180 EST. PATIENT, LEVEL III Diagnosis: Low back pain[ICD10: M54.5] Diagnosis: Sacroiliitis, not elsewhere classified[ICD10: M46.1] Janeen Cabrera MD, [facility] CPT-4: 78926 08/12/2016 ([id number]) 15803 EST. PATIENT, LEVEL IV Diagnosis: Mixed hyperlipidemia[ICD10: E78.2] Diagnosis: Essential (primary) hypertension[ICD10: I10] Diagnosis: Atrophy of thyroid (acquired)[ICD10: E03.4] Kandi Cabrera MD, [facility] CPT-4: 25938 07/28/2016 ([id number]) 55605 EST. PATIENT, LEVEL IV Diagnosis: Hypothyroidism, unspecified[ICD10: E03.9] Diagnosis: Essential (primary) hypertension[ICD10: I10] Diagnosis: Mixed hyperlipidemia[ICD10: E78.2] Diagnosis: Cellulitis of left lower limb[ICD10: L03.116] Diagnosis: Encounter for immunization[ICD10: Z23] Kandi Cabrera MD, [facility] CPT-4: 29235 01/28/2016 ([id number]) 21452 EST. PATIENT, LEVEL IV Diagnosis: Essential (primary) hypertension[ICD10: I10] Diagnosis: Hypothyroidism, unspecified[ICD10: E03.9] Diagnosis: Diarrhea, unspecified[ICD10: R19.7] Diagnosis: Tobacco use[ICD10: Z72.0] Diagnosis: Tobacco abuse counseling[ICD10: Z71.6] Diagnosis: Other obesity due to excess calories[ICD10: E66.09] Kandi Cabrera MD, [facility] CPT-4: 68167 07/29/2015 ([id number]) 45439 EST. PATIENT, LEVEL IV Diagnosis: Essential (primary) hypertension[ICD10: I10] Diagnosis: Hypothyroidism, unspecified[ICD10: E03.9] Diagnosis: Actinic keratosis[ICD10: L57.0] Kandi Cabrera MD, [facility] CPT-4: 70709 03/31/2015 ([id number]) OFFICE VISIT, NEW - LEVEL 4 Diagnosis: ESSENTIAL HYPERTENSION[ICD9: 401.9] Diagnosis: HYPOTHYROIDISM[ICD9: 244.9] Diagnosis: HYPERLIPIDEMIA[ICD9: 272.4] Diagnosis: Osteoporosis[ICD9: 733.00] Diagnosis: OSTEOARTH NOS-UNSPEC[ICD9: 715.90] Diagnosis: Sacroiliitis[ICD9: 720.2] Kandi Cabrera MD, [facility] CPT-4: 46671 12/23/2014 Plan of Care Planned Activity Notes [...] on hydroxyzine. 06/05/2018 Appointment: Kandi Cabrera WPtel: [address] [place], [place] [id number] (15 min) Moderate 06/05/2018 Patient Education: Patient [...] Addiction Completed 05/05/2018 [facility]ointment: [facility] [phone] [facility] (15 min) Moderate 04/11/2018 Visit Plan: Hypertension [...] improving. 04/03/2018 Appointment: Kandi Cabrera [facility] [phone] [facility] [place] (15 min) Moderate 04/03/2018 Patient Education: [...] a conversation about surgical intervention with her [employer]. 03/06/2018 Appointment: Kandi Cabrera [facility] [phone] [facility] [place] (15 min) Moderate 03/06/2018 Patient Education: [...] improving. 02/22/2018 Appointment: Payton Leon WPtel: [phone] [facility] (15 min) Moderate 02/22/2018 Patient Education: Patient Medication Summary Completed 02/22/2018 Patient Education: Back Pain Completed 02/22/2018 Visit Plan: Diarrhea - improved - pt advised to avoid seeds, nuts, popcorn, or any other food which has been proven to upset the pt's stomach. 12/13/2017 Appointment: Kandi Cabrera WPtel: [phone] [facility] [place] (15 min) Moderate 12/13/2017 Patient Education: Patient Medication Summary Completed 12/13/2017 Visit Plan: Diverticulitis - rx for antibiotic sent to pt's pharmacy - pt advised to avoid seeds, nuts, popcorn, or any other food which has been proven to upset the pt's stomach. 11/29/2017 Appointment: Kandi Cabrera WPtel: [phone] [facility] [place] (15 min) Moderate 11/29/2017 Patient Education: Patient Medication Summary Completed 11/29/2017 Appointment: Kandi Cabrera WPtel: [phone] [facility] [place] (15 min) Moderate 11/24/2017 Visit Plan: [...] 10 days 10/27/2017 Appointment: Kandi Cabrera [facility] [phone] [facility] (15 min) Moderate 10/27/2017 Patient Education: Patient [...] improving. 07/26/2017 App[facility]ment: [phone] [facility] (30 min) Complex 07/26/2017 Patient Education: Patient Medication Summary Completed 07/26/2017 Care Plan: Iron Pending 07/26/2017 Care Plan: Referral Order SNOMED-CT : [id number] Pending 07/26/2017 Visit Plan: Hypertension - well [...] recommended. 05/26/2017 Appointment: Kandi Cabrera [facility]el: [phone] [facility] (15 min) Moderate 05/26/2017 Patient Education: Patient Medication Summary Completed 05/26/2017 Patient Education: Patient Medication Summary Completed 05/19/2017 Care Plan: Iron Pending 05/19/2017 Visit Plan: Dyspnea on Exertion - uncontrolled - I have recommended pt to have Pulmonary function studies as well as a referral back to her [employer] Officer - Dr. Hanna - I suspect she [...] cigarettes". 04/11/2017 Appointment: Kandi Cabrera [facility] [phone] [facility] (15 min) Moderate 04/11/2017 Patient Education: Patient Medication Summary Completed 04/11/2017 Patient Education: Smoking and Tobacco Addiction Completed 04/11/2017 Care Plan: Referral Order SNOMED-CT : [id number] Pending 04/11/2017 Appointment: Kandi Cabrera WPtel: [address] [place], [place] [phone] (15 min) Moderate 02/14/2017 Appointment: Injection 02/09/2017 Referral: [facility]: [phone] [facility]66[facility] Patient informed. Completed 02/09/2017 Patient Education: Patient Medication Summary Completed 02/09/2017 Patient Education: Smoking and Tobacco Addiction Completed 02/09/2017 Visit Plan: Tobacco abuse - chronic condition for this patient. Patient has been counseled about need to stop smoking due to the negative health affects. Pt has vocalized understanding and states that they will con endocrinology teacher smoking cessation, but the pt is not yet ready to use medication to assist cessation. Rx for wellbutrin 75mg 1/2 pill bid. Gait instability - referral to [facility] for gait instability 02/07/2017 Appointment: Kandi Cabrera WPtel: [address] [place], [place] [phone] (15 min) Moderate 02/07/2017 Patient Education: Patient Medication Summary Completed 02/07/2017 Patient Education: Smoking and Tobacco Addiction Completed 02/07/2017 Care Plan: Referral Order SNOMED-CT : [id number] Pending 02/07/2017 Visit Plan: Cough - pt [...] becoming uncontrolled. 01/26/2017 Appointment: Kandi Cabrera WPtel: [address] [place], [place] [phone] (15 min) Moderate 01/26/2017 Patient Education: Patient [...] per week. 10/19/2016 Appointment: Kandi Cabrera WPtel: [address] [place], [place] [address] (15 min) Moderate 10/19/2016 Patient Education: Patient Medication Summary Completed 10/19/2016 Patient Education: Smoking and Tobacco Addiction Completed 10/19/2016 Patient Education: Hypertension Completed 10/19/2016 Visit Plan: Atrial Fibrillation - pt on chronic anticoagulation and is not optimally rate controlled. 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 09/22/2016 Appointment: Kandi Cabrera WPtel: [facility] (15 min) Moderate 09/22/2016 Patient Education: Patient [...] of control. 08/31/2016 Appointment: Kandi Cabrera WPtel: [facility] (15 min) Moderate 08/31/2016 Patient Education: Patient Medication Summary Completed 08/31/2016 Patient Education: Smoking and Tobacco Addiction Completed 08/31/2016 Patient Education: Hypertension Completed 08/31/2016 Visit Plan: Sacroiliitis -kenalog injection today in the office- tylenol as directed-heat as directed-xray lumbar spine. Pt is to call if the symptoms do not improve or if they worsen. 08/12/2016 Appointment: Janeen Marsh WPtel: [facility] [place] (30 min) Complex 08/12/2016 Patient Education: Patient Medication Summary Completed 08/12/2016 Patient Education: Smoking and Tobacco Addiction Completed 08/12/2016 Appointment: Payton Leon [facility]Ptel: [phone] [facility] [facility] - Annual Wellness Visit 07/30/2016 Visit [...] to medications. 07/28/2016 Appointment: Kandi Cabrera WPtel: [address] [place] [address] (15 min) Moderate 07/28/2016 Patient Education: Patient [...] shot today 01/28/2016 Appointment: Kandi Cabrera WPtel: [facility] (15 min) Moderate 01/28/2016 Patient Education: Patient [...] increase activity 07/29/2015 Appointment: Kandi Cabrera WPtel: [facility] [place] (15 min) Moderate 07/29/2015 Patient Education: [...] of control. A ctinic keratosis - left orthodoxy and left nasal bridge - pt to use efudex on the lesions on the nose and face. 03/31/2015 Appointment: Kandi Cabrera WPtel: [facility] (15 min) Moderate 03/31/2015 Patient Education: Patient [...] D levels. 12/23/2014 Appointment: Kandi Cabrera WPtel: [facility] [place] (S) New Patient 12/23/2014 Patient Education: Patient Medication Summary Completed 12/23/2014 Patient Education: Hypertension Completed 12/23/2014 Care Plan: Referral Order SNOMED-CT : [id number] Ordered 12/23/2014 Referral: External, Ordering Provider Referral Completed Referral: External, Ordering Provider Referral Appointment Requested Referral: Maggi Reaves Referral Initiated Referral: [facility] [phone] [facility] Referral Appointment Requested Referral: External, Ordering Provider [...] levels of control. Actinic keratosis - left orthodoxy and left nasal bridge - pt to [...] daily, call if not improving. PROBIOTIC - Mighty[employer]aramisPulsePoint, [employer] One, lactobacilus/acidophilis brand probiotic - these can be [...] a conversation about surgical intervention with her [employer] Officer. . Diverticulitis - rx for antibiotic sent to pt's pharmacy - pt advised to avoid seeds, nuts, popcorn, or any other food which has been proven to upset the pt's stomach. . Atrial Fibrillation - pt on chronic anticoagulation and is not optimally rate controlled. Pt is to see her sheriff deputy tomorrow, will discuss with him her plans [...] pill bid. Gait instability [facility] zantac 150mg take twice [...] well as a referral back to her [employer] Officer - Dr. Hanna - I suspect she [...] months based on previous levels of control. hold the tricor for the next week [...]
--- NOTE | 2018-12-29 14:10 | NUR ---
daughter and her family arrived. Taken to family room with pastorial care. Updated.
--- OUTSIDE RECORDS SUMMARY | 2018-12-29 14:10 | XMS REPORT | CCD ---
Author Author Kandi Cabrera MD, [facility] Address [address] [place] [address] Phone Care Team Providers Care Financial Director Name Role Phone PP Unavailable CCM Unavailable Summary Purpose Interface Exchange Insurance Providers Payer name Policy type / Coverage type Covered libertarian ID Effective Begin Date Effective End Date [facility] Commercial Insurance [id number] Unknown WPS Medicare Part B Commercial Insurance [id number] 2017 Unknown Family history Father Diagnosis Age [...] Unknown Retired 12/23/[address]: 99067471 Current every day smoker 12/23/2014 Number of years using tobacco Unknown > 50 trying to quit 12/23/2014 Number of cigarettes/day Unknown 10 (Half a pack) 12/23/[address]: 817498452 Never drinks alcohol 12/23/2014 Allergies, Adverse Reactions, Alerts Substance Reaction Codes Entered Date Inactivated Date Status ciprofloxacin RxNorm: 20312 05/05/2018 No Inactive Date Active SULFA(SULFONAMIDE ANTIBIOTICS) [...] Instructions hydroxyzine HCl 25 mg tablet RxNorm: 198702 1 Tablet(s) PO QHS may increase to two pills at hs if allergic reactions are occuring 06/05/2018 2018 Active Synthroid 100 mcg tablet RxNorm: 707735 1 Tablet(s) PO daily 06/05/2018 08/28/2019 Active Lasix 20 mg tablet RxNorm: 971299 1 Tablet(s) PO daily as needed not more than one time a day 05/19/2018 09/15/2018 Active prednisone 20 mg tablet RxNorm: 448690 2 Tablet(s) PO daily 02/22/2018 02/26/2018 Inactive Cipro 500 mg tablet RxNorm: 019244 1 Tablet(s) PO BID 02/22/2018 02/28/2018 Inactive potassium chloride ER 10 mEq tablet,extended release RxNorm: 197875 1 Tablet(s) PO UD take on days that you take a lasix pill 02/13/2018 02/07/2019 Active Synthroid 100 mcg tablet RxNorm: 009348 1 Tablet(s) PO daily 02/13/2018 06/04/2018 Inactive simvastatin 20 mg tablet RxNorm: 655960 1 Tablet(s) PO QHS 01/13/2018 01/07/2019 Active metronidazole 500 mg tablet RxNorm: 791640 1 Tablet(s) PO TID 11/29/2017 12/08/2017 Inactive alendronate 70 mg tablet RxNorm: 424422 1 Tablet(s) PO weekly 11/29/2017 03/05/2018 Inactive omeprazole 40 mg capsule,delayed release RxNorm: 047970 1 Capsule(s) PO daily 11/11/2017 11/05/2018 Active Flagyl 500 mg tablet RxNorm: 508164 1 Tablet(s) PO TID 10/27/2017 11/05/2017 Inactive sucralfate 1 gram tablet RxNorm: 140884 1 Tablet(s) PO TID 07/26/2017 07/20/2018 Active fluticasone 50 mcg/actuation nasal spray,suspension RxNorm: 4440950 1 [place]aman NASAL daily 07/26/2017 No Stop Date Active Protonix 40 mg tablet,delayed release RxNorm: 980621 1 Tablet(s) PO daily 07/26/2017 10/23/2017 Inactive Tricor 145 mg tablet RxNorm: 399759 1 Tablet(s) PO daily 05/26/2017 05/20/2018 Inactive perphenazine-amitriptyline 2 mg-10 mg tablet RxNorm: 304261 2 Tablet(s) PO daily 05/26/2017 05/20/2018 Inactive bupropion HCl 75 mg tablet RxNorm: 684599 1/2 Tablet(s) PO BID 02/07/2017 05/07/2017 Inactive Eliquis 5 mg tablet RxNorm: 0270986 1 Tablet(s) PO BID 01/26/2017 01/20/2018 Inactive sotalol 80 mg tablet RxNorm: 7482861 1 Tablet(s) PO BID 01/26/2017 04/20/2018 Inactive potassium chloride ER 10 mEq tablet,extended release RxNorm: 017181 1 Tablet(s) PO UD take on days that you take a lasix pill 01/26/2017 01/20/2018 Inactive Synthroid 100 mcg tablet RxNorm: 185939 1 Tablet(s) PO daily 01/26/2017 02/12/2018 Inactive diltiazem ER 240 mg capsule,extended release RxNorm: 193944 1 Capsule(s) PO BID 01/26/2017 05/03/2017 Inactive Lasix 20 mg tablet RxNorm: 1 Tablet(s) PO daily as needed not more than one time a day 01/26/2017 05/25/2017 Inactive simvastatin 20 mg tablet RxNorm: 480601 1 Tablet(s) PO QHS 12/21/2016 12/15/2017 Inactive alendronate 70 mg tablet RxNorm: 833818 1 Tablet(s) PO weekly 12/21/2016 11/28/2017 Inactive omeprazole 40 mg capsule,delayed release RxNorm: 418444 1 Capsule(s) PO daily 10/19/2016 10/12/2017 Inactive metoprolol succinate ER 100 mg tablet,extended release 24 hr RxNorm: 839858 1.5 Tablet(s) PO daily 09/17/2016 10/18/2016 Inactive Dosage increased by Dr. Vazquez potassium chloride ER 10 mEq tablet,extended release RxNorm: 141983 1 Tablet(s) PO UD take on days that you take a lasix pill 08/31/2016 12/28/2016 Inactive Lasix 20 mg tablet RxNorm: 1 Tablet(s) PO daily as needed not more than one time a day 08/31/2016 12/28/2016 Inactive Kenalog 40 mg/mL suspension for injection RxNorm: 0232857 1 Milliliter(s) Inj 08/12/2016 08/12/2016 Inactive Tricor 145 mg tablet RxNorm: 756987 1 Tablet(s) PO daily 05/21/2016 05/15/2017 Inactive atenolol 25 mg tablet RxNorm: 961191 1 Tablet(s) PO daily 05/21/2016 08/30/2016 Inactive sucralfate 1 gram tablet RxNorm: 198709 1 Tablet(s) PO TID 05/21/2016 05/15/2017 Inactive enalapril maleate 10 mg tablet RxNorm: 681129 1 Tablet(s) PO daily 04/26/2016 08/30/2016 Inactive perphenazine-amitriptyline 2 mg-10 mg tablet RxNorm: 064256 2 Tablet(s) PO daily 04/26/2016 04/20/2017 Inactive fluticasone 50 mcg/actuation nasal spray,suspension RxNorm: 2628456 1 Beaman NASAL daily 04/26/2016 07/25/2017 Inactive Synthroid 100 mcg tablet RxNorm: 297121 1 Tablet(s) PO daily 02/09/2016 01/25/2017 Inactive Synthroid 100 mcg tablet RxNorm: 515005 1 Tablet(s) PO daily 02/09/2016 02/08/2016 Inactive Keflex 500 mg capsule RxNorm: 934361 1 Capsule(s) PO TID 01/28/2016 02/01/2016 Inactive hydrochlorothiazide 25 mg tablet RxNorm: 771211 TAKE 1 TABLET DAILY 01/07/2016 08/30/2016 Inactive enalapril maleate 10 mg tablet RxNorm: 950478 1 Tablet(s) PO daily 12/26/2015 04/25/2016 Inactive hydrochlorothiazide 25 mg tablet RxNorm: 203137 1 Tablet(s) PO daily 12/08/2015 08/30/2016 Inactive omeprazole 40 mg capsule,delayed release RxNorm: 628455 1 Capsule(s) PO daily 12/08/2015 10/18/2016 Inactive simvastatin 20 mg tablet RxNorm: 339965 1 Tablet(s) PO QHS 11/14/2015 11/07/2016 Inactive alendronate 70 mg tablet RxNorm: 291486 1 Tablet(s) PO weekly 10/31/2015 10/24/2016 Inactive Synthroid 112 mcg tablet RxNorm: 936531 1 Tablet(s) PO daily 07/16/2015 02/08/2016 Inactive sucralfate 1 gram tablet RxNorm: 359803 1 Tablet(s) PO TID 06/17/2015 05/20/2016 Inactive perphenazine-amitriptyline 2 mg-10 mg tablet RxNorm: 387875 2 Tablet(s) PO daily 06/17/2015 04/25/2016 Inactive fluticasone 50 mcg/actuation nasal spray,suspension RxNorm: 8639887 1 Beaman NASAL daily 06/17/2015 04/25/2016 Inactive fluorouracil 5 % topical cream RxNorm: 309838 APPLY 1 APPLICATION TOPICALLY TWO TIMES A DAY 06/16/2015 06/25/2015 Inactive fluticasone 50 mcg/actuation nasal spray,suspension RxNorm: 634133 1 Beaman NASAL daily 06/12/2015 06/16/2015 Inactive atenolol 25 mg tablet RxNorm: 314088 1 Tablet(s) PO daily 05/14/2015 05/07/2016 Inactive Tricor 145 mg tablet RxNorm: 649074 1 Tablet(s) PO daily 04/23/2015 04/16/2016 Inactive Synthroid 125 mcg tablet RxNorm: 420685 1 Tablet(s) PO daily 03/31/2015 07/15/2015 Inactive fluorouracil 5 % topical cream RxNorm: 398949 1 Application TOP BID 03/31/2015 04/09/2015 Inactive Synthroid 137 mcg tablet RxNorm: 232870 1 Tablet(s) PO daily 12/25/2014 12/24/2014 Inactive Synthroid 137 mcg tablet RxNorm: 845837 1 Tablet(s) PO daily 12/25/2014 03/30/2015 Inactive Voltaren 1 % topical gel RxNorm: 270749 4 Gram(s) TOP QID 12/23/2014 04/21/2015 Inactive alendronate 70 mg tablet RxNorm: 798849 1 Tablet(s) PO weekly 12/23/2014 12/22/2014 Inactive alendronate 70 mg tablet RxNorm: 800847 1 Tablet(s) PO weekly 12/23/2014 10/30/2015 Inactive Fosamax 70 mg tablet RxNorm: 038258 1 Tablet(s) PO weekly QW 12/23/2014 01/27/2016 Inactive omeprazole 40 mg capsule,delayed release RxNorm: 084135 1 Capsule(s) PO daily 12/18/2014 12/07/2015 Inactive omeprazole 40 mg capsule,delayed release RxNorm: 014564 1 Capsule(s) PO daily 12/18/2014 12/17/2014 Inactive hydrochlorothiazide 25 mg tablet RxNorm: 466895 1 Tablet(s) PO daily 12/18/2014 12/17/2014 Inactive hydrochlorothiazide 25 mg tablet RxNorm: 497716 1 Tablet(s) PO daily 12/18/2014 12/07/2015 Inactive L-Lysine 1,000 mg tablet RxNorm: 430714 1 Tablet(s) PO daily No Start Date Active folic acid 400 mcg tablet RxNorm: 076889 1 Tablet(s) PO daily No Start Date Active B12 1000 mcg RxNorm: 1/2 Tablet(s) PO daily No Start Date Active Vitamin D3 1,000 unit chewable tablet RxNorm: 757232 1 Tablet(s) PO daily No Start Date Active diltiazem 120 mg tablet RxNorm: 083844 1 Tablet(s) PO daily No Start Date Active metoprolol succinate ER 100 mg tablet,extended release 24 hr RxNorm: 246445 1 Tablet(s) PO daily No Start Date 09/16/2016 Inactive enalapril maleate 10 mg tablet RxNorm: 791427 1 Tablet(s) PO daily No Start Date 12/25/2015 Inactive perphenazine-amitriptyline 2 mg-10 mg tablet RxNorm: 366147 2 Tablet(s) PO daily No Start Date 06/16/2015 Inactive sucralfate 1 gram tablet RxNorm: 436517 1 Tablet(s) PO TID No Start Date 06/16/2015 Inactive hydrochlorothiazide 25 mg tablet RxNorm: 495077 1 Tablet(s) PO daily No Start Date 08/30/2016 Inactive vitamin E (dl, acetate) 400 unit capsule RxNorm: 119102 1 Capsule(s) PO daily No Start Date 03/05/2018 Inactive sotalol 80 mg tablet RxNorm: 1524322 1 Tablet(s) PO BID No Start Date 01/25/2017 Inactive Synthroid 150 mcg tablet RxNorm: 746736 1 Tablet(s) PO daily No Start Date 12/24/2014 Inactive simvastatin 20 mg tablet RxNorm: 961910 1 Tablet(s) PO daily No Start Date 11/13/2015 Inactive Vitamin C RxNorm: PO 1000mg qd No Start Date 03/05/2018 Inactive Fosamax 70 mg tablet RxNorm: 867416 1 Tablet(s) PO weekly No Start Date 12/22/2014 Inactive Tricor 145 mg tablet RxNorm: 788824 1 Tablet(s) PO daily No Start Date 04/22/2015 Inactive diltiazem ER 180 mg capsule,24 hr,extended release RxNorm: 453761 1 Capsule(s) PO daily No Start Date 03/05/2018 Inactive diltiazem ER 240 mg capsule,extended release RxNorm: 044538 1 Capsule(s) PO BID No Start Date 01/25/2017 Inactive Eliquis 5 mg tablet RxNorm: 7479613 1 Tablet(s) PO BID No Start Date 01/25/2017 Inactive fluticasone 50 mcg/actuation nasal spray,suspension RxNorm: 640713 1 Beaman NASAL daily No Start Date 06/11/2015 Inactive atenolol 25 mg tablet RxNorm: 003788 1 Tablet(s) PO daily No Start Date 05/13/2015 Inactive Medication Administered Medication Codes Instructions Start Date Status Kenalog 40 mg/mL suspension for injection RxNorm: 9753430 1Milliliter 08/12/2016 No longer Active Immunizations Vaccine [...] Observation Code Item Item Code Result Date Metabolic Ord15 NA 133 mEq/L 06/01/2018 Metabolic [...] 24.9 pg 06/01/2018 Cbc With Differential Ord2 Woodson% 12.8 % 06/01/2018 Cbc With Differential Ord2 [...] 0.81 K/ul 06/01/2018 Cbc With Differential Ord2 [place] ABS# 0.7 K/ul 06/01/2018 Cbc With Differential [...] 29.9 pg 03/17/2018 Cbc With Differential Ord2 [place]son% 13.3 % 03/17/2018 Cbc With Differential Ord2 [...] 0.90 K/ul 03/17/2018 Cbc With Differential Ord2 [place] ABS# 0.8 K/ul 03/17/2018 Cbc With Differential [...] 14.5 % 02/22/2018 Cbc With Differential Ord2 Woodson% 11.5 % 02/22/2018 Cbc With Differential Ord2 [...] 0.86 K/ul 02/22/2018 Cbc With Differential Ord2 [place]son ABS# 0.7 K/ul 02/22/2018 Cbc With Differential Ord2 Eos ABS# 0.2 K/ul 02/22/2018 Cbc With Differential Ord2 Baso ABS# 0.1 K/ul 02/22/2018 Tsh Ord6 TSH (3rd IS) 0.66 uIU/mL 02/22/2018 Free T4 Qas820 FREE T4 1.22 ng/dL 02/22/2018 Comp Metabolic Ulb246 NA 136 mEq/L 02/22/2018 Comp Metabolic Wgw532 K 4.4 mEq/L 02/22/2018 Comp Metabolic Nrq225 CL 102 mEq/L 02/22/2018 Comp Metabolic Bam863 CO2 23.0 mEq/L 02/22/2018 Comp Metabolic Gfl713 ANION GAP 15 02/22/2018 Comp Metabolic Iqw495 GLUCOSE 94 mg/dL 02/22/2018 Comp Metabolic Zer845 Creat 1.2 mg/dL 02/22/2018 Comp Metabolic Ofv870 eGFR 46 ml/min/1.73m2 02/22/2018 Comp Metabolic Mmy022 BUN 31 mg/dL 02/22/2018 Comp Metabolic Vfh343 B/C Ratio 25.8 Ratio 02/22/2018 Comp Metabolic Phd826 CALCIUM 9.2 mg/dL 02/22/2018 Comp Metabolic Lmb215 ALK PHOS 34 U/L 02/22/2018 Comp Metabolic Yyy255 AST(SGOT) 18 U/L 02/22/2018 Comp Metabolic Tjt514 ALT(SGPT) 8 U/L 02/22/2018 Comp Metabolic Som641 BILI T 0.4 mg/dL 02/22/2018 Comp Metabolic Aes928 ALBUMIN 3.6 g/dL 02/22/2018 Comp Metabolic Dyj838 TPRO 6.2 g/dL 02/22/2018 Comp Metabolic Piv685 GLOB 2.6 g/dL 02/22/2018 Comp Metabolic Uat030 A/G Ratio 1.4 Ratio 02/22/2018 Comp Metabolic Sfi379 Osmo 278 mOsmo 02/22/2018 Free T4 Lmj312 FREE T4 1.11 ng/dL 10/27/2017 Lipid Ord30 [...] 23.3 % 10/27/2017 Cbc With Differential Ord2 Woodson% 11.3 % 10/27/2017 Cbc With Differential Ord2 [...] 1.16 K/ul 10/27/2017 Cbc With Differential Ord2 [place] ABS# 0.6 K/ul 10/27/2017 Cbc With Differential Ord2 Eos ABS# 0.2 K/ul 10/27/2017 Cbc With Differential Ord2 Baso ABS# 0.0 K/ul 10/27/2017 Comp Metabolic Prp163 NA 135 mEq/L 10/27/2017 Comp Metabolic Pee345 K 4.7 mEq/L 10/27/2017 Comp Metabolic Erg085 CL 101 mEq/L 10/27/2017 Comp Metabolic Mwz242 CO2 23.0 mEq/L 10/27/2017 Comp Metabolic Sjo405 ANION GAP 16 10/27/2017 Comp Metabolic Wmp936 GLUCOSE 84 mg/dL 10/27/2017 Comp Metabolic Qye472 Creat 1.2 mg/dL 10/27/2017 Comp Metabolic Yxr429 eGFR 46 ml/min/1.73m2 10/27/2017 Comp Metabolic Xaq184 BUN 30 mg/dL 10/27/2017 Comp Metabolic Hmt311 B/C Ratio 25.2 Ratio 10/27/2017 Comp Metabolic Lpz010 CALCIUM 9.4 mg/dL 10/27/2017 Comp Metabolic Eek840 ALK PHOS 30 U/L 10/27/2017 Comp Metabolic Qts908 AST(SGOT) 25 U/L 10/27/2017 Comp Metabolic Ure366 ALT(SGPT) 12 U/L 10/27/2017 Comp Metabolic Kdk382 BILI T 0.5 mg/dL 10/27/2017 Comp Metabolic Tbc337 ALBUMIN 3.7 g/dL 10/27/2017 Comp Metabolic Far974 TPRO 6.5 g/dL 10/27/2017 Comp Metabolic Vru471 GLOB 2.8 g/dL 10/27/2017 Comp Metabolic Btz316 A/G Ratio 1.3 Ratio 10/27/2017 Comp Metabolic Iyt290 Osmo 275 mOsmo 10/27/2017 Hgb & Hct Ord65 HGB 12.2 g/dl 07/29/2017 Hgb & Hct Ord65 HCT 38.8 % 07/29/2017 Tibc Ord40 Iron 79 ug/dl 07/26/2017 Tibc Ord40 UIBC 380 ug/dL 07/26/2017 Tibc Ord40 TIBC 459 ug/dL 07/26/2017 Tibc Ord40 Fe-%Sat 17.2 % 07/26/2017 Tsh Ord6 TSH (3rd IS) 0.46 uIU/mL 07/26/2017 Ferritin Ord22 FERRITIN 83.6 ng/mL 07/26/2017 Free T4 Yrc582 FREE T4 1.00 ng/dL 07/26/2017 Tibc Ord40 [...] 31.0 pg 08/02/2016 Cbc With Differential Ord2 [place]son% 9.4 % 08/02/2016 Cbc With Differential Ord2 [...] 1.44 K/ul 08/02/2016 Cbc With Differential Ord2 [place] ABS# 0.7 K/ul 08/02/2016 Cbc With Differential Ord2 Eos ABS# 0.3 K/ul 08/02/2016 Cbc With Differential Ord2 Baso ABS# 0.1 K/ul 08/02/2016 Lipid Ord30 CHOL 142 mg/dL 08/02/2016 Lipid Ord30 HDL 40.0 mg/dl 08/02/2016 Lipid Ord30 TRIG 169 mg/dL 08/02/2016 Lipid Ord30 LDL 68 mg/dL 08/02/2016 Lipid Ord30 C/HDL 3.6 Ratio 08/02/2016 Comp Metabolic Jjc651 NA 139 mEq/L 08/02/2016 Comp Metabolic Lku686 K 5.2 mEq/L 08/02/2016 Comp Metabolic Pti425 CL 108 mEq/L 08/02/2016 Comp Metabolic Did378 CO2 22.0 mEq/L 08/02/2016 Comp Metabolic Kpc542 ANION GAP 14 08/02/2016 Comp Metabolic Evj782 GLUCOSE 103 mg/dL 08/02/2016 Comp Metabolic Mnd323 Creat 1.1 mg/dL 08/02/2016 Comp Metabolic Nru816 eGFR 54 ml/min/1.73m2 08/02/2016 Comp Metabolic Sre169 BUN 26 mg/dL 08/02/2016 Comp Metabolic Gaj010 B/C Ratio 24.8 Ratio 08/02/2016 Comp Metabolic Eye863 CALCIUM 9.4 mg/dL 08/02/2016 Comp Metabolic Lnc741 ALK PHOS 41 U/L 08/02/2016 Comp Metabolic Mit820 AST(SGOT) 18 U/L 08/02/2016 Comp Metabolic Tcf592 ALT(SGPT) 10 U/L 08/02/2016 Comp Metabolic Ohd988 BILI T 0.3 mg/dL 08/02/2016 Comp Metabolic Ygz439 ALBUMIN 3.7 g/dL 08/02/2016 Comp Metabolic Avo955 TPRO 6.5 g/dL 08/02/2016 Comp Metabolic Ija764 GLOB 2.8 g/dL 08/02/2016 Comp Metabolic Ygc146 A/G Ratio 1.3 Ratio 08/02/2016 Comp Metabolic Ccw740 Osmo 283 mOsmo 08/02/2016 Free T4 Jjf440 FREE T4 1.08 ng/dL 08/02/2016 Tsh Ord6 hTSH II 0.35 uIU/mL 05/13/2016 Free T4 Thl928 FREE T4 0.78 ng/dL 05/13/2016 Free T4 Mzt547 FREE T4 1.13 ng/dL 01/28/2016 Tsh Ord6 [...] 93.1 fl 07/14/2015 Cbc With Differential Ord2 [place]son% 9.1 % 07/14/2015 Cbc With Differential Ord2 [...] 1.80 K/ul 07/14/2015 Cbc With Differential Ord2 [place] ABS# 0.7 K/ul 07/14/2015 Cbc With Differential [...] Ord30 C/HDL 3.0 Ratio 07/14/2015 Comp Metabolic Dwh310 NA 136 mEq/L 07/14/2015 Comp Metabolic Zry555 K 4.4 mEq/L 07/14/2015 Comp Metabolic Mbv975 CL 101 mEq/L 07/14/2015 Comp Metabolic Bmy148 CO2 27.0 mEq/L 07/14/2015 Comp Metabolic Erx393 ANION GAP 12 07/14/2015 Comp Metabolic Qza029 GLUCOSE 97 mg/dL 07/14/2015 Comp Metabolic Jzd270 Creat 1.0 mg/dL 07/14/2015 Comp Metabolic Afz142 eGFR 56 ml/min/1.73m2 07/14/2015 Comp Metabolic Gqf776 BUN 27 mg/dL 07/14/2015 Comp Metabolic Ves256 B/C Ratio 26.7 Ratio 07/14/2015 Comp Metabolic Rlt238 CALCIUM 9.3 mg/dL 07/14/2015 Comp Metabolic Ayu363 ALK PHOS 33 U/L 07/14/2015 Comp Metabolic Glk769 AST(SGOT) 14 U/L 07/14/2015 Comp Metabolic Eaw654 ALT(SGPT) 8 U/L 07/14/2015 Comp Metabolic Hzz392 BILI T 0.4 mg/dL 07/14/2015 Comp Metabolic Epz142 ALBUMIN 3.8 g/dL 07/14/2015 Comp Metabolic Rsy830 TPRO 6.6 g/dL 07/14/2015 Comp Metabolic Vwl994 GLOB 2.8 g/dL 07/14/2015 Comp Metabolic Ojk810 A/G Ratio 1.4 Ratio 07/14/2015 Comp Metabolic Fuy301 Osmo 277 mOsmo 07/14/2015 Tsh Ord6 hTSH II 0.23 uIU/mL 07/14/2015 Free T4 Vbd614 FREE T4 1.19 ng/dL 07/14/2015 Cbc With [...] Ord30 C/HDL 3.4 Ratio 03/26/2015 Comp Metabolic Ppa909 NA 135 mEq/L 03/26/2015 Comp Metabolic Hdu790 K 5.0 mEq/L 03/26/2015 Comp Metabolic Xbv919 CL 99 mEq/L 03/26/2015 Comp Metabolic Sys076 CO2 27.0 mEq/L 03/26/2015 Comp Metabolic Kwz070 ANION GAP 14 03/26/2015 Comp Metabolic Ksu551 GLUCOSE 88 mg/dL 03/26/2015 Comp Metabolic Gfv939 Creat 1.1 mg/dL 03/26/2015 Comp Metabolic Jwf735 eGFR 50 ml/min/1.73m2 03/26/2015 Comp Metabolic Sys220 BUN 27 mg/dL 03/26/2015 Comp Metabolic Woe661 B/C Ratio 24.1 Ratio 03/26/2015 Comp Metabolic Bfz382 CALCIUM 9.9 mg/dL 03/26/2015 Comp Metabolic Cja481 ALK PHOS 30 U/L 03/26/2015 Comp Metabolic Zow378 AST(SGOT) 16 U/L 03/26/2015 Comp Metabolic Dqf611 ALT(SGPT) 8 U/L 03/26/2015 Comp Metabolic Imi314 BILI T 0.4 mg/dL 03/26/2015 Comp Metabolic Osh614 ALBUMIN 3.9 g/dL 03/26/2015 Comp Metabolic Vtm491 TPRO 6.4 g/dL 03/26/2015 Comp Metabolic Qvk907 GLOB 2.5 g/dL 03/26/2015 Comp Metabolic Mmi757 A/G Ratio 1.6 Ratio 03/26/2015 Comp Metabolic Ogb851 Osmo 275 mOsmo 03/26/2015 Free T4 Zvb445 FREE T4 1.22 ng/dL 03/26/2015 Tsh Ord6 hTSH II 0.20 uIU/mL 03/26/2015 Vitamin D 25 Oh Qpk8760 VITAMIN D, 25 HYDROXY 51.09 ng/mL 12/25/2014 Tsh Ord6 hTSH II 0.09 uIU/mL 12/23/2014 Free T4 Aez543 FREE T4 1.30 ng/dL 12/23/2014 Comp Metabolic Vas393 NA 135 mEq/L 12/23/2014 Comp Metabolic Tsv398 K 4.7 mEq/L 12/23/2014 Comp Metabolic Obl554 CL 100 mEq/L 12/23/2014 Comp Metabolic Jxn794 CO2 23.0 mEq/L 12/23/2014 Comp Metabolic Aqr994 ANION GAP 17 12/23/2014 Comp Metabolic Bec812 GLUCOSE 93 mg/dL 12/23/2014 Comp Metabolic Lre343 Creat 1.1 mg/dL 12/23/2014 Comp Metabolic Wsq817 eGFR 53 ml/min/1.73m2 12/23/2014 Comp Metabolic Ysh160 BUN 26 mg/dL 12/23/2014 Comp Metabolic Lye803 B/C Ratio 24.3 Ratio 12/23/2014 Comp Metabolic Bvi717 CALCIUM 9.5 mg/dL 12/23/2014 Comp Metabolic Lzk065 ALK PHOS 27 U/L 12/23/2014 Comp Metabolic Qbp804 AST(SGOT) 16 U/L 12/23/2014 Comp Metabolic Axc243 ALT(SGPT) 8 U/L 12/23/2014 Comp Metabolic Qbw423 BILI T 0.4 mg/dL 12/23/2014 Comp Metabolic Xjc673 ALBUMIN 3.9 g/dL 12/23/2014 Comp Metabolic Eoq845 TPRO 6.7 g/dL 12/23/2014 Comp Metabolic Rox968 GLOB 2.8 g/dL 12/23/2014 Comp Metabolic Bjt420 A/G Ratio 1.4 Ratio 12/23/2014 Comp Metabolic Ftj511 Osmo 275 mOsmo 12/23/2014 Review of Systems [...] inspection of skin Consistency: thick 03/31/2015 left jewish and left nasal bridge - actinic keratosis [...] SUBSEQ VISIT CPT- 4: G0439 05/05/2018 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-[address]: 116162217 CPT-4: G0436 04/11/2017 PNEUMOCOCCAL VACC [address]: 88482057 CPT-4: 50378 02/09/2017 FLU VACC PRSV FREE INC ANTIG CPT-4: 45036 02/09/2017 ADMIN INFLUENZA VIRUS VAC CPT-4: G0008 02/09/2017 ADMIN PNEUMOCOCCAL VACCINE SNOMED CT: 57321696 CPT-4: G0009 02/09/2017 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-[address]: 083439234 CPT-4: G0436 02/07/2017 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-[address]: 348325166 CPT-4: G0436 10/19/2016 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-[address]: 386062475 CPT-4: G0436 08/31/2016 TRIAMCINOLONE ACET INJ NOS CPT-4: J3301 08/12/2016 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-[address]: 778231139 CPT-4: G0436 07/28/2016 ADMIN INFLUENZA VIRUS VAC CPT-4: G0008 01/28/2016 FLU VACC 4 JULISA 3 YRS PLUS IM SNOMED CT: 43713668 CPT-4: 92471 01/28/2016 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-[address]: 036549470 CPT-4: G0436 07/29/2015 Vital Signs Date Vital 06/05/2018 Blood Pressure 1: 122/60 Code: 8480-6 BMI: 25.4 Code: 53871-9 Heart Rate 1: 74 bpm Height: 5'4" SpO2: 98% Weight: 148 lbs 05/05/2018 Blood Pressure 1: 130/64 Code: 8480-6 BMI: 25.1 Code: 71941-1 Heart Rate 1: 72 bpm Height: 5'4" SpO2: 97% Weight: 146 lbs 04/03/2018 Blood Pressure 1: 142/80 Code: 8480-6 BMI: 25.2 Code: 38059-0 Heart Rate 1: 99 bpm Height: 5'4" SpO2: 97% Weight: 147 lbs 03/06/2018 Blood Pressure 1: 140/80 Code: 8480-6 BMI: 26.1 Code: 08521-4 Heart Rate 1: 71 bpm Height: 5'4" SpO2: 98% Weight: 152 lbs 02/22/2018 Blood Pressure 1: 146/68 Code: 8480-6 BMI: 26.6 Code: 88001-6 Heart Rate 1: 88 bpm Height: 5'4" SpO2: 97% Weight: 155 lbs 12/13/2017 Blood Pressure 1: 132/68 Code: 8480-6 BMI: 26.6 Code: 82841-6 Heart Rate 1: 72 bpm Height: 5'4" SpO2: 94% Weight: 154 lbs 14 oz 11/29/2017 Blood Pressure 1: 130/64 Code: 8480-6 BMI: 26.1 Code: 42840-3 Heart Rate 1: 81 bpm Height: 5'4" SpO2: 94% Weight: 152 lbs 10/27/2017 Blood Pressure 1: 120/62 Code: 8480-6 BMI: 25.9 Code: 95683-0 Heart Rate 1: 70 bpm Height: 5'4" SpO2: 96% Weight: 151 lbs 07/26/2017 Blood Pressure 1: 146/70 Code: 8480-6 BMI: 26.3 Code: 38875-1 Heart Rate 1: 69 bpm Height: 5'4" SpO2: 98% Weight: 153 lbs 05/26/2017 Blood Pressure 1: 142/76 Code: 8480-6 BMI: 26.4 Code: 23993-6 Heart Rate 1: 59 bpm Height: 5'4" SpO2: 99% Weight: 154 lbs 04/11/2017 Blood Pressure 1: 134/64 Code: 8480-6 BMI: 26.6 Code: 98611-0 Heart Rate 1: 65 bpm Height: 5'4" SpO2: 98% Weight: 155 lbs 02/07/2017 Blood Pressure 1: 120/72 Code: 8480-6 Heart Rate 1: 72 bpm Height: 5'4" SpO2: 96% Weight: 01/26/2017 Blood Pressure 1: 146/68 Code: 8480-6 BMI: 26.4 Code: 77982-0 Heart Rate 1: 96 bpm Height: 5'4" SpO2: 97% Weight: 154 lbs 10/19/2016 Blood Pressure 1: 144/76 Code: 8480-6 BMI: 25.8 Code: 84826-8 Heart Rate 1: 68 bpm Height: 5'4" SpO2: 96% Weight: 150 lbs 8 oz 09/22/2016 Blood Pressure 1: 122/80 Code: 8480-6 BMI: 26.1 Code: 92993-7 Heart Rate 1: 111 bpm Height: 5'4" SpO2: 97% Weight: 152 lbs 08/31/2016 Blood Pressure 1: 152/82 Code: 8480-6 BMI: 27.1 Code: 64073-6 Heart Rate 1: 118 bpm Height: 5'4" SpO2: 96% Weight: 158 lbs 08/12/2016 Blood Pressure 1: 146/78 Code: 8480-6 BMI: 26.9 Code: 56326-4 Heart Rate 1: 68 bpm Height: 5'4" SpO2: 97% Weight: 157 lbs 07/28/2016 Blood Pressure 1: 128/64 Code: 8480-6 BMI: 27.1 Code: 77766-8 Heart Rate 1: 63 bpm Height: 5'4" SpO2: 97% Weight: 158 lbs 01/28/2016 Blood Pressure 1: 130/70 Code: 8480-6 BMI: 27.3 Code: 19907-9 Heart Rate 1: 60 bpm Height: 5'4" SpO2: 95% Weight: 159 lbs 07/29/2015 Blood Pressure 1: 136/80 Code: 8480-6 BMI: 28.1 Code: 26041-2 Heart Rate 1: 68 bpm Height: 5'4" SpO2: 96% Weight: 163 lbs 8 oz 03/31/2015 Blood Pressure 1: 138/88 Code: 8480-6 BMI: 27.5 Code: 91826-2 Heart Rate 1: 72 bpm Height: 5'4" Weight: 160 lbs 12/23/2014 Blood Pressure 1: 138/68 Code: 8480-6 BMI: 27.1 Code: 06100-6 Heart Rate 1: 63 bpm Height: 5'4" [...] data Encounters Encounter Performer Location Codes Date ([id number]) [id number] EST. PATIENT, LEVEL IV Diagnosis: Other specified anemias[ICD10: D64.89] Diagnosis: Other insomnia[ICD10: G47.09] Diagnosis: Atrophy of thyroid (acquired)[ICD10: E03.4] Diagnosis: Allergic urticaria[ICD10: L50.0] Kandi Cabrera MD, [facility] CPT-4: 28274 06/05/2018 [id number]) [id number] EST. PATIENT, LEVEL IV Diagnosis: Essential (primary) hypertension[ICD10: I10] Diagnosis: Nonrheumatic aortic (valve) stenosis[ICD10: I35.0] Diagnosis: Atrophy of thyroid (acquired)[ICD10: E03.4] Diagnosis: Chronic atrial fibrillation[ICD10: I48.2] Kandi Cabrera MD, [facility] CPT-4: 21912 04/03/2018 [id number]) [id number] EST. PATIENT, LEVEL IV Diagnosis: Essential (primary) hypertension[ICD10: I10] Diagnosis: Chronic atrial fibrillation[ICD10: I48.2] Diagnosis: Nonrheumatic aortic (valve) stenosis[ICD10: I35.0] Diagnosis: Age-related osteoporosis without current pathological fracture[ICD10: M81.0] Kandi Cabrera MD, [facility] CPT-4: 94753 03/06/2018 [id number] EST. PATIENT, LEVEL III Diagnosis: Low back pain[ICD10: M54.5] Diagnosis: Dysuria[ICD10: R30.0] Diagnosis: Gastro-esophageal reflux disease without esophagitis[ICD10: K21.9] Payton Cabrera MD, [facility] CPT-4: 85176 02/22/2018 ([id number]) 77116 EST. PATIENT, LEVEL III Diagnosis: Atrophy of thyroid (acquired)[ICD10: E03.4] Diagnosis: Other iron deficiency anemias[ICD10: D50.8] Diagnosis: Epigastric pain[ICD10: R10.13] Kandi Cabrera MD [facility] CPT-4: 44679 12/13/2017 ([id number]) 78518 EST. PATIENT, LEVEL IV Diagnosis: Diverticulitis of large intestine without perforation or abscess without bleeding[ICD10: K57.32] Kandi Cabrera MD [facility] CPT-4: 94010 11/29/2017 ([id number]) 84654 EST. PATIENT, LEVEL IV Diagnosis: Atrophy of thyroid (acquired)[ICD10: E03.4] Diagnosis: Other iron deficiency anemias[ICD10: D50.8] Diagnosis: Epigastric pain[ICD10: R10.13] Diagnosis: Right lower quadrant pain[ICD10: R10.31] Diagnosis: Left lower quadrant pain[ICD10: R10.32] Kandi Cabrera MD, [facility] CPT-4: 77065 10/27/2017 63686 EST. PATIENT, LEVEL IV Diagnosis: Atrophy of thyroid (acquired)[ICD10: E03.4] Diagnosis: Other iron deficiency anemias[ICD10: D50.8] Diagnosis: Essential (primary) hypertension[ICD10: I10] Diagnosis: Gastro-esophageal reflux disease without esophagitis[ICD10: K21.9] Payton Cabrera MD, [facility] CPT-4: 29251 07/26/2017 ([id number]) 74905 EST. PATIENT, LEVEL IV Diagnosis: Other iron deficiency anemias[ICD10: D50.8] Diagnosis: Atrophy of thyroid (acquired)[ICD10: E03.4] Diagnosis: Tobacco use[ICD10: Z72.0] Diagnosis: Essential (primary) hypertension[ICD10: I10] Diagnosis: Low back pain[ICD10: M54.5] Kandi Cabrera MD, [facility] CPT-4: 15280 05/26/2017 ([id number]) 32539 EST. PATIENT, LEVEL IV Diagnosis: Shortness of breath[ICD10: R06.02] Diagnosis: Tobacco use[ICD10: Z72.0] Diagnosis: Chronic atrial fibrillation[ICD10: I48.2] Kandi Cabrera MD [facility] CPT-4: 06701 04/11/2017 ([id number]) 09345 EST. PATIENT, LEVEL III Diagnosis: Unsteadiness on feet[ICD10: R26.81] Diagnosis: Tobacco use[ICD10: Z72.0] Kandi Cabrera MD [facility] CPT-4: 52802 02/07/2017 ([id number]) 99095 EST. PATIENT, LEVEL IV Diagnosis: Cough[ICD10: R05] Diagnosis: Essential (primary) hypertension[ICD10: I10] Diagnosis: Chronic atrial fibrillation[ICD10: I48.2] Diagnosis: Unsteadiness on feet[ICD10: R26.81] Kandi Cabrera MD [facility] CPT- 4: 18782 01/26/2017 ([id number]) 64908 EST. PATIENT, LEVEL IV Diagnosis: Essential (primary) hypertension[ICD10: I10] Diagnosis: Atrophy of thyroid (acquired)[ICD10: E03.4] Diagnosis: Tobacco use[ICD10: Z72.0] Diagnosis: Chronic atrial fibrillation[ICD10: I48.2] Diagnosis: Mixed hyperlipidemia[ICD10: E78.2] Kandi Cabrera MD [facility] CPT- 4: 50552 10/19/2016 ([id number]) 64781 EST. PATIENT, LEVEL IV Diagnosis: Atrophy of thyroid (acquired)[ICD10: E03.4] Diagnosis: Mixed hyperlipidemia[ICD10: E78.2] Diagnosis: Essential (primary) hypertension[ICD10: I10] Kandi Cabrera MD [facility] CPT-4: 67898 09/22/2016 ([id number]) 63136 EST. PATIENT, LEVEL IV Diagnosis: Essential (primary) hypertension[ICD10: I10] Diagnosis: Atrophy of thyroid (acquired)[ICD10: E03.4] Diagnosis: Chronic atrial fibrillation[ICD10: I48.2] Kandi Cabrera MD [facility] CPT-4: 34443 08/31/2016 ([id number]) 94013 EST. PATIENT, LEVEL III Diagnosis: Low back pain[ICD10: M54.5] Diagnosis: Sacroiliitis, not elsewhere classified[ICD10: M46.1] Janeen Cabrera MD, [facility] CPT-4: 31725 08/12/2016 ([id number]) 18432 EST. PATIENT, LEVEL IV Diagnosis: Mixed hyperlipidemia[ICD10: E78.2] Diagnosis: Essential (primary) hypertension[ICD10: I10] Diagnosis: Atrophy of thyroid (acquired)[ICD10: E03.4] Kandi Cabrera MD, [facility] CPT-4: 40564 07/28/2016 ([id number]) 27716 EST. PATIENT, LEVEL IV Diagnosis: Hypothyroidism, unspecified[ICD10: E03.9] Diagnosis: Essential (primary) hypertension[ICD10: I10] Diagnosis: Mixed hyperlipidemia[ICD10: E78.2] Diagnosis: Cellulitis of left lower limb[ICD10: L03.116] Diagnosis: Encounter for immunization[ICD10: Z23] Kandi Cabrera MD, [facility] CPT-4: 89515 01/28/2016 ([id number]) 04858 EST. PATIENT, LEVEL IV Diagnosis: Essential (primary) hypertension[ICD10: I10] Diagnosis: Hypothyroidism, unspecified[ICD10: E03.9] Diagnosis: Diarrhea, unspecified[ICD10: R19.7] Diagnosis: Tobacco use[ICD10: Z72.0] Diagnosis: Tobacco abuse counseling[ICD10: Z71.6] Diagnosis: Other obesity due to excess calories[ICD10: E66.09] Kandi Cabrera MD, [facility] CPT-4: 68718 07/29/2015 ([id number]) 10242 EST. PATIENT, LEVEL IV Diagnosis: Essential (primary) hypertension[ICD10: I10] Diagnosis: Hypothyroidism, unspecified[ICD10: E03.9] Diagnosis: Actinic keratosis[ICD10: L57.0] Kandi Cabrera MD, [facility] CPT-4: 52097 03/31/2015 ([id number]) OFFICE VISIT, NEW - LEVEL 4 Diagnosis: ESSENTIAL HYPERTENSION[ICD9: 401.9] Diagnosis: HYPOTHYROIDISM[ICD9: 244.9] Diagnosis: HYPERLIPIDEMIA[ICD9: 272.4] Diagnosis: Osteoporosis[ICD9: 733.00] Diagnosis: OSTEOARTH NOS-UNSPEC[ICD9: 715.90] Diagnosis: Sacroiliitis[ICD9: 720.2] [facility] CPT-4: 68250 12/23/2014 Plan of Care Planned Activity Notes [...] Hydroxyzine. Insomnia - start on hydroxyzine. 06/05/2018 Patient Education: Patient Medication Summary Completed [...] Addiction Completed 05/05/2018 Appointment: Kandi Cabrera WPtel: [address] [place], [place] [id number] (15 min) Moderate 04/11/2018 Visit Plan: Hypertension [...] not improving. 04/03/2018 Appointment: Kandi Cabrera WPtel: [address] [place], [place] [address] (15 min) Moderate 04/03/2018 Patient Education: Patient [...] a conversation about surgical intervention with her Open Shank Coverer. 03/06/2018 Appointment[phone] [facility] [place] (15 min) Moderate 03/06/2018 Patient [...] not improving. 02/22/2018 Appointment: Payton Leon WPtel: [phone] [facility] (15 min) Moderate 02/22/2018 Patient Education: Patient Medication Summary Completed 02/22/2018 Patient Education: Back Pain Completed 02/22/2018 Visit Plan: Diarrhea - improved - pt advised to avoid seeds, nuts, popcorn, or any other food which has been proven to upset the pt's stomach. 12/13/2017 Appointment: Kandi Cabrera WPtel: [facility] (15 min) Moderate 12/13/2017 Patient Education: Patient Medication Summary Completed 12/13/2017 Visit Plan: Diverticulitis - rx for antibiotic sent to pt's pharmacy - pt advised to avoid seeds, nuts, popcorn, or any other food which has been proven to upset the pt's stomach. 11/29/2017 Appointment: Kandi Cabrera WPtel: [phone] [facility] (15 min) Moderate 11/29/2017 Patient Education: Patient Medication Summary Completed 11/29/2017 Appointment: [facility] [phone] [facility] (15 min) Moderate 11/24/2017 Visit Plan: [...] days 10/27/2017 Appointment: [phone] [facility] (15 min) Moderate 10/27/2017 Patient Education: [...] improving. 07/26/2017 [facility]ment[phone] [facility] (30 min) Complex 07/26/2017 Patient Education: Patient Medication Summary Completed 07/26/2017 Care Plan: Iron Pending 07/26/2017 Care Plan: Referral Order SNOMED-CT : [id number] Pending 07/26/2017 Visit Plan: Hypertension - well [...] recommended. 05/26/2017 Appointment: Kandi Cabrera WPtel: [phone] [facility] (15 min) Moderate 05/26/2017 Patient Education: Patient Medication Summary Completed 05/26/2017 Patient Education: Patient Medication Summary Completed 05/19/2017 Care Plan: Iron Pending 05/19/2017 Visit Plan: Dyspnea on Exertion - uncontrolled - I have recommended pt to have Pulmonary function studies as well as a referral back to her Open Shank Coverer - Dr. Hanna - I suspect she [...] cigarettes". 04/11/2017 Appointment: Kandi Cabrera WPtel: [phone] [facility] (15 min) Moderate 04/11/2017 Patient Education: Patient Medication Summary Completed 04/11/2017 Patient Education: Smoking and Tobacco Addiction Completed 04/11/2017 Care Plan: Referral Order SNOMED-CT : [id number] Pending 04/11/2017 Appointment: Kandi Cabrera WPtel: [phone] [facility] (15 min) Moderate 02/14/2017 Appointment: Injection 02/09/2017 Referral: [facility]: [phone] [facility] Patient informed. Completed 02/09/2017 Patient Education: Patient Medication Summary Completed 02/09/2017 Patient Education: Smoking and Tobacco Addiction Completed 02/09/2017 Visit Plan: Tobacco abuse - chronic condition for this patient. Patient has been counseled about need to stop smoking due to the negative health affects. Pt has vocalized understanding and states that they will con mop worker smoking cessation, but the pt is not yet ready to use medication to assist cessation. Rx for wellbutrin 75mg 1/2 pill bid. Gait instability - referral to [facility] for gait instability 02/07/2017 Appointment: [phone] [facility] (15 min) Moderate 02/07/2017 Patient Education: Patient Medication Summary Completed 02/07/2017 Patient Education: Smoking and Tobacco Addiction Completed 02/07/2017 Care Plan: Referral Order SNOMED-CT : [id number] Pending 02/07/2017 Visit Plan: Cough - pt [...] uncontrolled. 01/26/2017 Appointment: [facility] Cabrera [facility]el[phone] [facility] (15 min) Moderate 01/26/2017 Patient [...] week. 10/19/2016 Appointment: Kandi Cabrera WPtel: [phone] [facility] (15 min) Moderate 10/19/2016 Patient Education: Patient Medication Summary Completed 10/19/2016 Patient Education: Smoking and Tobacco Addiction Completed 10/19/2016 Patient Education: Hypertension Completed 10/19/2016 Visit Plan: Atrial Fibrillation - pt on chronic anticoagulation and is not optimally rate controlled. Pt is to see her assistant housekeeping manager tomorrow, will discuss with him her [...] control. 09/22/2016 Appointment: [facility] Cabrera [facility]el[phone] [facility] (15 min) Moderate 09/22/2016 Patient Education: [...] q 3 months or q 6 m [facility] based on previous levels of control. 08/31/2016 Appointment: Kandi Cabrera WPtel: [facility] (15 min) Moderate 08/31/2016 Patient Education: Patient Medication Summary Completed 08/31/2016 Patient Education: Smoking and Tobacco Addiction Completed 08/31/2016 Patient Education: Hypertension Completed 08/31/2016 Visit Plan: Sacroiliitis -kenalog injection today in the office- tylenol as directed-heat as directed-xray lumbar spine. Pt is to call if the symptoms do not improve or if they worsen. 08/12/2016 Appointment: Janeen Marsh WPtel: [facility] (30 min) Complex 08/12/2016 Patient Education: Patient Medication Summary Completed 08/12/2016 Patient Education: Smoking and Tobacco Addiction Completed 08/12/2016 Appointment: Payton Leon WPtel: [facility] [facility] - Annual Wellness Visit 07/30/2016 [...] to medications. 07/28/2016 Appointment: Kandi Cabrera WPtel: [facility] (15 min) Moderate 07/28/2016 Patient [...] today 01/28/2016 Appointment: Kandi Cabrera WPtel[facility] [phone] [facility] (15 min) Moderate 01/28/2016 Patient Education: [...] activity 07/29/2015 Appointment: [facility] Cabrera [facility]Ptel[phone] [facility] (15 min) Moderate 07/29/2015 Patient Education: Patient [...] of control. A ctinic keratosis - left jewish and left nasal bridge - pt to use efudex on the lesions on the nose and face. 03/31/2015 Appointment: Kandi Cabrera WPtel: [facility] [place] (15 min) Moderate 03/31/2015 [...] D levels. 12/23/2014 Appointment: Kandi Cabrera WPtel[phone] [facility] [place] (S) New Patient 12/23/2014 Patient Education: Patient Medication Summary Completed 12/23/2014 Patient Education: Hypertension Completed 12/23/2014 Care Plan: Referral Order SNOMED-CT : [id number] Ordered 12/23/2014 Referral: External, Ordering Provider Referral Completed Referral: External, Ordering Provider Referral Appointment Requested Referral: Maggi Reaves Referral Initiated Referral[facility] [phone] [facility] [place] Referral Appointment Requested Referral: External, [...] if their heart rate is becoming uncontrolled. Will culture your urine to make sure [...] a conversation about surgical intervention with her Open Shank Coverer. hold the tricor for the next week [...] on Hydroxyzine. Insomnia - start on hydroxyzine. take 1/2 of an venu or zyrtec [...] venu daily, call if not improving. . Dyspnea on Exertion - uncontrolled - I have recommended pt to have Pulmonary function studies as well as a referral back to her Open Shank Coverer - Dr. Hanna - I suspect she [...] assure normal liver response to medications. . Atrial Fibrillation - pt on chronic [...] 1 cigarette daily per week. PROBIOTIC - [email or web address], [employer], lactobacilus/acidophilis brand probiotic - these can be [...] rate controlled. Pt is to see her assistant housekeeping manager tomorrow, will discuss with him her [...] levels of control. Actinic keratosis - left jewish and left nasal bridge - pt to [...]
--- OUTSIDE RECORDS SUMMARY | 2018-12-29 14:14 | XMS REPORT | CCD ---
Author Author Kandi Cabrera Organization Kandi Cabrera MD, [facility] Address [address] [place] [address] Phone Care Team Providers Care Back Hand Name Role Phone PP Unavailable CCM Unavailable Summary Purpose Interface Exchange Insurance Providers Payer name Policy type / Coverage type Covered libertarian ID Effective Begin Date Effective End Date [facility] Commercial Insurance [id number] Unknown WPS Medicare Part B Commercial Insurance [id number] 2017 Unknown Family history Father Diagnosis Age [...] Unknown Retired 12/23/[address]: 33735087 Current every day smoker 12/23/2014 Number of years using tobacco Unknown > 50 trying to quit 12/23/2014 Number of cigarettes/day Unknown 10 (Half a pack) 12/23/[address]: 853141191 Never drinks alcohol 12/23/2014 Allergies, Adverse Reactions, Alerts Substance Reaction Codes Entered Date Inactivated Date Status ciprofloxacin RxNorm: 81326 05/05/2018 No Inactive Date Active SULFA(SULFONAMIDE ANTIBIOTICS) [...] ICD-10: M81.0 Active 03/06/2018 Unknown Anemia, unspecified ICD- 9: 285.9 ICD-10: D64.9 Active 05/19/2017 Unknown Dysuria [...] 733.00 ICD-10: M81.0 03/06/2018 Active Anemia, unspecified ICD- 9: 285.9 ICD-10: D64.9 05/19/2017 Active Dysuria ICD-9: [...] Start Date Stop Date Status Fill Instructions Lasix 20 mg tablet RxNorm: 124967 1 Tablet(s) PO daily as needed not more than one time a day 05/19/2018 09/15/2018 Active prednisone 20 mg tablet RxNorm: 405378 2 Tablet(s) PO daily 02/22/2018 02/26/2018 Inactive Cipro 500 mg tablet RxNorm: 205503 1 Tablet(s) PO BID 02/22/2018 02/28/2018 Inactive Synthroid 100 mcg tablet RxNorm: 157954 1 Tablet(s) PO daily 02/13/2018 05/08/2019 Active potassium chloride ER 10 mEq tablet,extended release RxNorm: 024197 1 Tablet(s) PO UD take on days that you take a lasix pill 02/13/2018 02/07/2019 Active simvastatin 20 mg tablet RxNorm: 748399 1 Tablet(s) PO QHS 01/13/2018 01/07/2019 Active metronidazole 500 mg tablet RxNorm: 389813 1 Tablet(s) PO TID 11/29/2017 12/08/2017 Inactive alendronate 70 mg tablet RxNorm: 165543 1 Tablet(s) PO weekly 11/29/2017 03/05/2018 Inactive omeprazole 40 mg capsule,delayed release RxNorm: 813307 1 Capsule(s) PO daily 11/11/2017 11/05/2018 Active Flagyl 500 mg tablet RxNorm: 610451 1 Tablet(s) PO TID 10/27/2017 11/05/2017 Inactive sucralfate 1 gram tablet RxNorm: 032010 1 Tablet(s) PO TID 07/26/2017 07/20/2018 Active fluticasone 50 mcg/actuation nasal spray,suspension RxNorm: 3602420 1 Campbell NASAL daily 07/26/2017 No Stop Date Active Protonix 40 mg tablet,delayed release RxNorm: 046336 1 Tablet(s) PO daily 07/26/2017 10/23/2017 Inactive Tricor 145 mg tablet RxNorm: 130867 1 Tablet(s) PO daily 05/26/2017 05/20/2018 Inactive perphenazine-amitriptyline 2 mg-10 mg tablet RxNorm: 821646 2 Tablet(s) PO daily 05/26/2017 05/20/2018 Inactive bupropion HCl 75 mg tablet RxNorm: 629599 1/2 Tablet(s) PO BID 02/07/2017 05/07/2017 Inactive Eliquis 5 mg tablet RxNorm: 8952131 1 Tablet(s) PO BID 01/26/2017 01/20/2018 Inactive sotalol 80 mg tablet RxNorm: 9813397 1 Tablet(s) PO BID 01/26/2017 04/20/2018 Inactive potassium chloride ER 10 mEq tablet,extended release RxNorm: 391585 1 Tablet(s) PO UD take on days that you take a lasix pill 01/26/2017 01/20/2018 Inactive Synthroid 100 mcg tablet RxNorm: 622146 1 Tablet(s) PO daily 01/26/2017 02/12/2018 Inactive diltiazem ER 240 mg capsule,extended release RxNorm: 025501 1 Capsule(s) PO BID 01/26/2017 05/03/2017 Inactive Lasix 20 mg tablet RxNorm: 870712 1 Tablet(s) PO daily as needed not more than one time a day 01/26/2017 05/25/2017 Inactive simvastatin 20 mg tablet RxNorm: 033980 1 Tablet(s) PO QHS 12/21/2016 12/15/2017 Inactive alendronate 70 mg tablet RxNorm: 827281 1 Tablet(s) PO weekly 12/21/2016 11/28/2017 Inactive omeprazole 40 mg capsule,delayed release RxNorm: 497564 1 Capsule(s) PO daily 10/19/2016 10/12/2017 Inactive metoprolol succinate ER 100 mg tablet,extended release 24 hr RxNorm: 254486 1.5 Tablet(s) PO daily 09/17/2016 10/18/2016 Inactive Dosage increased by Dr. Vazquez potassium chloride ER 10 mEq tablet,extended release RxNorm: 927482 1 Tablet(s) PO UD take on days that you take a lasix pill 08/31/2016 12/28/2016 Inactive Lasix 20 mg tablet RxNorm: 035335 1 Tablet(s) PO daily as needed not more than one time a day 08/31/2016 12/28/2016 Inactive Kenalog 40 mg/mL suspension for injection RxNorm: 9441467 1 Milliliter(s) Inj 08/12/2016 08/12/2016 Inactive Tricor 145 mg tablet RxNorm: 165250 1 Tablet(s) PO daily 05/21/2016 05/15/2017 Inactive atenolol 25 mg tablet RxNorm: 810198 1 Tablet(s) PO daily 05/21/2016 08/30/2016 Inactive sucralfate 1 gram tablet RxNorm: 177309 1 Tablet(s) PO TID 05/21/2016 05/15/2017 Inactive enalapril maleate 10 mg tablet RxNorm: 090499 1 Tablet(s) PO daily 04/26/2016 08/30/2016 Inactive perphenazine-amitriptyline 2 mg-10 mg tablet RxNorm: 425971 2 Tablet(s) PO daily 04/26/2016 04/20/2017 Inactive fluticasone 50 mcg/actuation nasal spray,suspension RxNorm: 0210541 1 Campbell NASAL daily 04/26/2016 07/25/2017 Inactive Synthroid 100 mcg tablet RxNorm: 058549 1 Tablet(s) PO daily 02/09/2016 01/25/2017 Inactive Synthroid 100 mcg tablet RxNorm: 982049 1 Tablet(s) PO daily 02/09/2016 02/08/2016 Inactive Keflex 500 mg capsule RxNorm: 649010 1 Capsule(s) PO TID 01/28/2016 02/01/2016 Inactive hydrochlorothiazide 25 mg tablet RxNorm: 851043 TAKE 1 TABLET DAILY 01/07/2016 08/30/2016 Inactive enalapril maleate 10 mg tablet RxNorm: 905392 1 Tablet(s) PO daily 12/26/2015 04/25/2016 Inactive hydrochlorothiazide 25 mg tablet RxNorm: 376378 1 Tablet(s) PO daily 12/08/2015 08/30/2016 Inactive omeprazole 40 mg capsule,delayed release RxNorm: 088216 1 Capsule(s) PO daily 12/08/2015 10/18/2016 Inactive simvastatin 20 mg tablet RxNorm: 923729 1 Tablet(s) PO QHS 11/14/2015 11/07/2016 Inactive alendronate 70 mg tablet RxNorm: 442996 1 Tablet(s) PO weekly 10/31/2015 10/24/2016 Inactive Synthroid 112 mcg tablet RxNorm: 322992 1 Tablet(s) PO daily 07/16/2015 02/08/2016 Inactive sucralfate 1 gram tablet RxNorm: 398401 1 Tablet(s) PO TID 06/17/2015 05/20/2016 Inactive perphenazine-amitriptyline 2 mg-10 mg tablet RxNorm: 155428 2 Tablet(s) PO daily 06/17/2015 04/25/2016 Inactive fluticasone 50 mcg/actuation nasal spray,suspension RxNorm: 2579082 1 [place] NASAL daily 06/17/2015 04/25/2016 Inactive fluorouracil 5 % topical cream RxNorm: 923977 APPLY 1 APPLICATION TOPICALLY TWO TIMES A DAY 06/16/2015 06/25/2015 Inactive fluticasone 50 mcg/actuation nasal spray,suspension RxNorm: 866038 1 [place] NASAL daily 06/12/2015 06/16/2015 Inactive atenolol 25 mg tablet RxNorm: 029712 1 Tablet(s) PO daily 05/14/2015 05/07/2016 Inactive Tricor 145 mg tablet RxNorm: 407210 1 Tablet(s) PO daily 04/23/2015 04/16/2016 Inactive Synthroid 125 mcg tablet RxNorm: 972197 1 Tablet(s) PO daily 03/31/2015 07/15/2015 Inactive fluorouracil 5 % topical cream RxNorm: 308675 1 Application TOP BID 03/31/2015 04/09/2015 Inactive Synthroid 137 mcg tablet RxNorm: 248100 1 Tablet(s) PO daily 12/25/2014 12/24/2014 Inactive Synthroid 137 mcg tablet RxNorm: 011888 1 Tablet(s) PO daily 12/25/2014 03/30/2015 Inactive Voltaren 1 % topical gel RxNorm: 684484 4 Gram(s) TOP QID 12/23/2014 04/21/2015 Inactive alendronate 70 mg tablet RxNorm: 798109 1 Tablet(s) PO weekly 12/23/2014 12/22/2014 Inactive alendronate 70 mg tablet RxNorm: 297173 1 Tablet(s) PO weekly 12/23/2014 10/30/2015 Inactive Fosamax 70 mg tablet RxNorm: 531553 1 Tablet(s) PO weekly QW 12/23/2014 01/27/2016 Inactive omeprazole 40 mg capsule,delayed release RxNorm: 556628 1 Capsule(s) PO daily 12/18/2014 12/07/2015 Inactive omeprazole 40 mg capsule,delayed release RxNorm: 981709 1 Capsule(s) PO daily 12/18/2014 12/17/2014 Inactive hydrochlorothiazide 25 mg tablet RxNorm: 440944 1 Tablet(s) PO daily 12/18/2014 12/17/2014 Inactive hydrochlorothiazide 25 mg tablet RxNorm: 275977 1 Tablet(s) PO daily 12/18/2014 12/07/2015 Inactive L-Lysine 1,000 mg tablet RxNorm: 025197 1 Tablet(s) PO daily No Start Date Active folic acid 400 mcg tablet RxNorm: 623712 1 Tablet(s) PO daily No Start Date Active B12 1000 mcg RxNorm: 1/2 Tablet(s) PO daily No Start Date Active Vitamin D3 1,000 unit chewable tablet RxNorm: 225081 1 Tablet(s) PO daily No Start Date Active diltiazem 120 mg tablet RxNorm: 213401 1 Tablet(s) PO daily No Start Date Active metoprolol succinate ER 100 mg tablet,extended release 24 hr RxNorm: 479089 1 Tablet(s) PO daily No Start Date 09/16/2016 Inactive enalapril maleate 10 mg tablet RxNorm: 552878 1 Tablet(s) PO daily No Start Date 12/25/2015 Inactive perphenazine-amitriptyline 2 mg-10 mg tablet RxNorm: 015782 2 Tablet(s) PO daily No Start Date 06/16/2015 Inactive sucralfate 1 gram tablet RxNorm: 891282 1 Tablet(s) PO TID No Start Date 06/16/2015 Inactive hydrochlorothiazide 25 mg tablet RxNorm: 933893 1 Tablet(s) PO daily No Start Date 08/30/2016 Inactive vitamin E (dl, acetate) 400 unit capsule RxNorm: 399110 1 Capsule(s) PO daily No Start Date 03/05/2018 Inactive sotalol 80 mg tablet RxNorm: 7503346 1 Tablet(s) PO BID No Start Date 01/25/2017 Inactive Synthroid 150 mcg tablet RxNorm: 663249 1 Tablet(s) PO daily No Start Date 12/24/2014 Inactive simvastatin 20 mg tablet RxNorm: 296198 1 Tablet(s) PO daily No Start Date 11/13/2015 Inactive Vitamin C RxNorm: PO 1000mg qd No Start Date 03/05/2018 Inactive Fosamax 70 mg tablet RxNorm: 662206 1 Tablet(s) PO weekly No Start Date 12/22/2014 Inactive Tricor 145 mg tablet RxNorm: 376554 1 Tablet(s) PO daily No Start Date 04/22/2015 Inactive diltiazem ER 180 mg capsule,24 hr,extended release RxNorm: 534156 1 Capsule(s) PO daily No Start Date 03/05/2018 Inactive diltiazem ER 240 mg capsule,extended release RxNorm: 112431 1 Capsule(s) PO BID No Start Date 01/25/2017 Inactive Eliquis 5 mg tablet RxNorm: 4452084 1 Tablet(s) PO BID No Start Date 01/25/2017 Inactive fluticasone 50 mcg/actuation nasal spray,suspension RxNorm: 229166 1 Campbell NASAL daily No Start Date 06/11/2015 Inactive atenolol 25 mg tablet RxNorm: 750816 1 Tablet(s) PO daily No Start Date 05/13/2015 Inactive Medication Administered Medication Codes Instructions Start Date Status Kenalog 40 mg/mL suspension for injection RxNorm: 7724783 1Milliliter 08/12/2016 No longer Active Immunizations Vaccine [...] mg/dL 06/01/2018 Cbc With Differential Ord2 WBC 5.88 [...] 29.9 pg 03/17/2018 Cbc With Differential Ord2 [place]% 13.3 % 03/17/2018 Cbc With Differential Ord2 [...] 0.90 K/ul 03/17/2018 Cbc With Differential Ord2 [place] ABS# 0.8 K/ul 03/17/2018 Cbc With Differential [...] 93.5 fl 02/22/2018 Cbc With Differential Ord2 [place]% 11.5 % 02/22/2018 Cbc With Differential Ord2 [...] 0.86 K/ul 02/22/2018 Cbc With Differential Ord2 [place] ABS# 0.7 K/ul 02/22/2018 Cbc With Differential Ord2 Eos ABS# 0.2 K/ul 02/22/2018 Cbc With Differential Ord2 Baso ABS# 0.1 K/ul 02/22/2018 Tsh Ord6 TSH (3rd IS) 0.66 uIU/mL 02/22/2018 Free T4 Lmq025 FREE T4 1.22 ng/dL 02/22/2018 Comp Metabolic Dtf023 NA 136 mEq/L 02/22/2018 Comp Metabolic Ntv717 K 4.4 mEq/L 02/22/2018 Comp Metabolic Vtz486 CL 102 mEq/L 02/22/2018 Comp Metabolic Hkx515 CO2 23.0 mEq/L 02/22/2018 Comp Metabolic Fwx864 ANION GAP 15 02/22/2018 Comp Metabolic Qge074 GLUCOSE 94 mg/dL 02/22/2018 Comp Metabolic Nqt428 Creat 1.2 mg/dL 02/22/2018 Comp Metabolic Bzo979 eGFR 46 ml/min/1.73m2 02/22/2018 Comp Metabolic Mpx797 BUN 31 mg/dL 02/22/2018 Comp Metabolic Bar130 B/C Ratio 25.8 Ratio 02/22/2018 Comp Metabolic Qkl152 CALCIUM 9.2 mg/dL 02/22/2018 Comp Metabolic Wya574 ALK PHOS 34 U/L 02/22/2018 Comp Metabolic Vbm141 AST(SGOT) 18 U/L 02/22/2018 Comp Metabolic Hjx061 ALT(SGPT) 8 U/L 02/22/2018 Comp Metabolic Mtq419 BILI T 0.4 mg/dL 02/22/2018 Comp Metabolic Twv401 ALBUMIN 3.6 g/dL 02/22/2018 Comp Metabolic Ccg278 TPRO 6.2 g/dL 02/22/2018 Comp Metabolic Czg069 GLOB 2.6 g/dL 02/22/2018 Comp Metabolic Net453 A/G Ratio 1.4 Ratio 02/22/2018 Comp Metabolic Tmp033 Osmo 278 mOsmo 02/22/2018 Free T4 Egw872 FREE T4 1.11 ng/dL 10/27/2017 Lipid Ord30 [...] 23.3 % 10/27/2017 Cbc With Differential Ord2 [place]% 11.3 % 10/27/2017 Cbc With Differential Ord2 MCH 30.7 pg 10/27/2017 Cbc With Differential Ord2 Eos% 3.8 % 10/27/2017 Cbc With Differential Ord2 MCHC 32.6 pg 10/27/2017 Cbc With Differential Ord2 PLT 364 K/ul 10/27/2017 Cbc With Differential Ord2 Baso% 0.6 % 10/27/2017 Cbc With Differential Ord2 RDW 16.5 % 10/27/2017 Cbc With Differential Ord2 Neut ABS# 3.03 K/ul 10/27/2017 Cbc With Differential Ord2 Lymph ABS# 1.16 K/ul 10/27/2017 Cbc With Differential Ord2 [place] ABS# 0.6 K/ul 10/27/2017 Cbc With Differential Ord2 Eos ABS# 0.2 K/ul 10/27/2017 Cbc With Differential Ord2 Baso ABS# 0.0 K/ul 10/27/2017 Comp Metabolic Kil494 NA 135 mEq/L 10/27/2017 Comp Metabolic Lmv474 K 4.7 mEq/L 10/27/2017 Comp Metabolic Ndj594 CL 101 mEq/L 10/27/2017 Comp Metabolic Amp333 CO2 23.0 mEq/L 10/27/2017 Comp Metabolic Vil288 ANION GAP 16 10/27/2017 Comp Metabolic Bqf397 GLUCOSE 84 mg/dL 10/27/2017 Comp Metabolic Gej692 Creat 1.2 mg/dL 10/27/2017 Comp Metabolic Ohn279 eGFR 46 ml/min/1.73m2 10/27/2017 Comp Metabolic Rcj700 BUN 30 mg/dL 10/27/2017 Comp Metabolic Lgn569 B/C Ratio 25.2 Ratio 10/27/2017 Comp Metabolic Wch801 CALCIUM 9.4 mg/dL 10/27/2017 Comp Metabolic Uew843 ALK PHOS 30 U/L 10/27/2017 Comp Metabolic Zvi324 AST(SGOT) 25 U/L 10/27/2017 Comp Metabolic Pse646 ALT(SGPT) 12 U/L 10/27/2017 Comp Metabolic Pov796 BILI T 0.5 mg/dL 10/27/2017 Comp Metabolic Yum348 ALBUMIN 3.7 g/dL 10/27/2017 Comp Metabolic Qfm790 TPRO 6.5 g/dL 10/27/2017 Comp Metabolic Wut410 GLOB 2.8 g/dL 10/27/2017 Comp Metabolic Amk169 A/G Ratio 1.3 Ratio 10/27/2017 Comp Metabolic Hia369 Osmo 275 mOsmo 10/27/2017 Hgb & Hct Ord65 HGB 12.2 g/dl 07/29/2017 Hgb & Hct Ord65 HCT 38.8 % 07/29/2017 Tibc Ord40 Iron 79 ug/dl 07/26/2017 Tibc Ord40 UIBC 380 ug/dL 07/26/2017 Tibc Ord40 TIBC 459 ug/dL 07/26/2017 Tibc Ord40 Fe-%Sat 17.2 % 07/26/2017 Tsh Ord6 TSH (3rd IS) 0.46 uIU/mL 07/26/2017 Ferritin Ord22 FERRITIN 83.6 ng/mL 07/26/2017 Free T4 Lyw567 FREE T4 1.00 ng/dL 07/26/2017 Tibc Ord40 [...] 31.0 pg 08/02/2016 Cbc With Differential Ord2 [place]% 9.4 % 08/02/2016 Cbc With Differential Ord2 [...] 1.44 K/ul 08/02/2016 Cbc With Differential Ord2 [place] ABS# 0.7 K/ul 08/02/2016 Cbc With Differential Ord2 Eos ABS# 0.3 K/ul 08/02/2016 Cbc With Differential Ord2 Baso ABS# 0.1 K/ul 08/02/2016 Lipid Ord30 CHOL 142 mg/dL 08/02/2016 Lipid Ord30 HDL 40.0 mg/dl 08/02/2016 Lipid Ord30 TRIG 169 mg/dL 08/02/2016 Lipid Ord30 LDL 68 mg/dL 08/02/2016 Lipid Ord30 C/HDL 3.6 Ratio 08/02/2016 Comp Metabolic Evu225 NA 139 mEq/L 08/02/2016 Comp Metabolic Pva478 K 5.2 mEq/L 08/02/2016 Comp Metabolic Rkh639 CL 108 mEq/L 08/02/2016 Comp Metabolic Yga208 CO2 22.0 mEq/L 08/02/2016 Comp Metabolic Fvt238 ANION GAP 14 08/02/2016 Comp Metabolic Jhk276 GLUCOSE 103 mg/dL 08/02/2016 Comp Metabolic Ebs970 Creat 1.1 mg/dL 08/02/2016 Comp Metabolic Xxe172 eGFR 54 ml/min/1.73m2 08/02/2016 Comp Metabolic Ojc226 BUN 26 mg/dL 08/02/2016 Comp Metabolic Skm528 B/C Ratio 24.8 Ratio 08/02/2016 Comp Metabolic Tth708 CALCIUM 9.4 mg/dL 08/02/2016 Comp Metabolic Nze053 ALK PHOS 41 U/L 08/02/2016 Comp Metabolic Vdg875 AST(SGOT) 18 U/L 08/02/2016 Comp Metabolic Rfa793 ALT(SGPT) 10 U/L 08/02/2016 Comp Metabolic Ukf301 BILI T 0.3 mg/dL 08/02/2016 Comp Metabolic Qzx024 ALBUMIN 3.7 g/dL 08/02/2016 Comp Metabolic Wep180 TPRO 6.5 g/dL 08/02/2016 Comp Metabolic Ihd250 GLOB 2.8 g/dL 08/02/2016 Comp Metabolic Jzv616 A/G Ratio 1.3 Ratio 08/02/2016 Comp Metabolic Rle940 Osmo 283 mOsmo 08/02/2016 Free T4 Gdy347 FREE T4 1.08 ng/dL 08/02/2016 Tsh Ord6 hTSH II 0.35 uIU/mL 05/13/2016 Free T4 Qur573 FREE T4 0.78 ng/dL 05/13/2016 Free T4 Kkt139 FREE T4 1.13 ng/dL 01/28/2016 Tsh Ord6 [...] 93.1 fl 07/14/2015 Cbc With Differential Ord2 [place]% 9.1 % 07/14/2015 Cbc With Differential Ord2 [...] 1.80 K/ul 07/14/2015 Cbc With Differential Ord2 [place] ABS# 0.7 K/ul 07/14/2015 Cbc With Differential [...] Ord30 C/HDL 3.0 Ratio 07/14/2015 Comp Metabolic Ozy221 NA 136 mEq/L 07/14/2015 Comp Metabolic Cox649 K 4.4 mEq/L 07/14/2015 Comp Metabolic Qng357 CL 101 mEq/L 07/14/2015 Comp Metabolic Fcu785 CO2 27.0 mEq/L 07/14/2015 Comp Metabolic Cqr482 ANION GAP 12 07/14/2015 Comp Metabolic Vwz337 GLUCOSE 97 mg/dL 07/14/2015 Comp Metabolic Hxu753 Creat 1.0 mg/dL 07/14/2015 Comp Metabolic Olq699 eGFR 56 ml/min/1.73m2 07/14/2015 Comp Metabolic Zao016 BUN 27 mg/dL 07/14/2015 Comp Metabolic Zlr601 B/C Ratio 26.7 Ratio 07/14/2015 Comp Metabolic Jwj846 CALCIUM 9.3 mg/dL 07/14/2015 Comp Metabolic Ezf865 ALK PHOS 33 U/L 07/14/2015 Comp Metabolic Ihp755 AST(SGOT) 14 U/L 07/14/2015 Comp Metabolic Yzb611 ALT(SGPT) 8 U/L 07/14/2015 Comp Metabolic Zxv390 BILI T 0.4 mg/dL 07/14/2015 Comp Metabolic Gov267 ALBUMIN 3.8 g/dL 07/14/2015 Comp Metabolic Vvb789 TPRO 6.6 g/dL 07/14/2015 Comp Metabolic Fkq008 GLOB 2.8 g/dL 07/14/2015 Comp Metabolic Ica828 A/G Ratio 1.4 Ratio 07/14/2015 Comp Metabolic Aki719 Osmo 277 mOsmo 07/14/2015 Tsh Ord6 hTSH II 0.23 uIU/mL 07/14/2015 Free T4 Kkd638 FREE T4 1.19 ng/dL 07/14/2015 Cbc With [...] Ord30 C/HDL 3.4 Ratio 03/26/2015 Comp Metabolic Hiw301 NA 135 mEq/L 03/26/2015 Comp Metabolic Xot170 K 5.0 mEq/L 03/26/2015 Comp Metabolic Kvs761 CL 99 mEq/L 03/26/2015 Comp Metabolic Ctj790 CO2 27.0 mEq/L 03/26/2015 Comp Metabolic Aax791 ANION GAP 14 03/26/2015 Comp Metabolic Olz343 GLUCOSE 88 mg/dL 03/26/2015 Comp Metabolic Pys260 Creat 1.1 mg/dL 03/26/2015 Comp Metabolic Opy587 eGFR 50 ml/min/1.73m2 03/26/2015 Comp Metabolic Wgn356 BUN 27 mg/dL 03/26/2015 Comp Metabolic Eip244 B/C Ratio 24.1 Ratio 03/26/2015 Comp Metabolic Ezk580 CALCIUM 9.9 mg/dL 03/26/2015 Comp Metabolic Qua675 ALK PHOS 30 U/L 03/26/2015 Comp Metabolic Dqb475 AST(SGOT) 16 U/L 03/26/2015 Comp Metabolic Nab089 ALT(SGPT) 8 U/L 03/26/2015 Comp Metabolic Hfd707 BILI T 0.4 mg/dL 03/26/2015 Comp Metabolic Eed688 ALBUMIN 3.9 g/dL 03/26/2015 Comp Metabolic Tcb034 TPRO 6.4 g/dL 03/26/2015 Comp Metabolic Fsu427 GLOB 2.5 g/dL 03/26/2015 Comp Metabolic Qkf047 A/G Ratio 1.6 Ratio 03/26/2015 Comp Metabolic Twr745 Osmo 275 mOsmo 03/26/2015 Free T4 Sou723 FREE T4 1.22 ng/dL 03/26/2015 Tsh Ord6 hTSH II 0.20 uIU/mL 03/26/2015 Vitamin D 25 Oh Ieo3441 VITAMIN D, 25 HYDROXY 51.09 ng/mL 12/25/2014 Tsh Ord6 hTSH II 0.09 uIU/mL 12/23/2014 Free T4 Jrz537 FREE T4 1.30 ng/dL 12/23/2014 Comp Metabolic Jpb441 NA 135 mEq/L 12/23/2014 Comp Metabolic Fwj816 K 4.7 mEq/L 12/23/2014 Comp Metabolic Gue058 CL 100 mEq/L 12/23/2014 Comp Metabolic Dey334 CO2 23.0 mEq/L 12/23/2014 Comp Metabolic Ltd695 ANION GAP 17 12/23/2014 Comp Metabolic Xbu998 GLUCOSE 93 mg/dL 12/23/2014 Comp Metabolic Jwm990 Creat 1.1 mg/dL 12/23/2014 Comp Metabolic Zem509 eGFR 53 ml/min/1.73m2 12/23/2014 Comp Metabolic Wck719 BUN 26 mg/dL 12/23/2014 Comp Metabolic Roj746 B/C Ratio 24.3 Ratio 12/23/2014 Comp Metabolic Fny999 CALCIUM 9.5 mg/dL 12/23/2014 Comp Metabolic Obh237 ALK PHOS 27 U/L 12/23/2014 Comp Metabolic Uua218 AST(SGOT) 16 U/L 12/23/2014 Comp Metabolic Oop361 ALT(SGPT) 8 U/L 12/23/2014 Comp Metabolic Fza447 BILI T 0.4 mg/dL 12/23/2014 Comp Metabolic Inr462 ALBUMIN 3.9 g/dL 12/23/2014 Comp Metabolic Xpv706 TPRO 6.7 g/dL 12/23/2014 Comp Metabolic Tnz256 GLOB 2.8 g/dL 12/23/2014 Comp Metabolic Ltz670 A/G Ratio 1.4 Ratio 12/23/2014 Comp Metabolic Ykr498 Osmo 275 mOsmo 12/23/2014 Review of Systems System Result Effective Dates Constitutional No recent illness 05/05/2018 Constitutional No [...] accomodation 02/07/2017 None Full Exam - General 1995 Ears/Nose/Throat otoscopic exam Overall: external auditory canals [...] inspection of skin Consistency: thick 03/31/2015 left mandaen and left nasal bridge - actinic keratosis [...] SUBSEQ VISIT CPT- 4: G0439 05/05/2018 TOBACCO-USE PRIMARY CARE MD 3-[address]: 686729553 CPT-4: G0436 04/11/2017 PNEUMOCOCCAL VACC [address]: 79040821 CPT-4: 11945 02/09/2017 FLU VACC PRSV FREE INC ANTIG CPT-4: 22200 02/09/2017 ADMIN INFLUENZA VIRUS VAC CPT-4: G0008 02/09/2017 ADMIN PNEUMOCOCCAL VACCINE SNOMED CT: 10900281 CPT-4: G0009 02/09/2017 TOBACCO-USE PRIMARY CARE MD 3-[address]: 096055405 CPT-4: G0436 02/07/2017 TOBACCO-USE PRIMARY CARE MD 3-[address]: 175856482 CPT-4: G0436 10/19/2016 TOBACCO-USE PRIMARY CARE MD 3-[address]: 771033753 CPT-4: G0436 08/31/2016 TRIAMCINOLONE ACET INJ NOS CPT-4: J3301 08/12/2016 TOBACCO-USE PRIMARY CARE MD 3-[address]: 829339845 CPT-4: G0436 07/28/2016 ADMIN INFLUENZA VIRUS VAC CPT-4: G0008 01/28/2016 FLU VACC 4 JULISA 3 YRS PLUS IM SNOMED CT: 10788613 CPT-4: 31414 01/28/2016 TOBACCO-USE PRIMARY CARE MD 3-[address]: 646655884 CPT-4: G0436 07/29/2015 Vital Signs Date Vital 05/05/2018 Blood Pressure 1: 130/64 Code: 8480-6 BMI: 25.1 Code: 40106-3 Heart Rate 1: 72 bpm Height: 5'4" SpO2: 97% Weight: 146 lbs 04/03/2018 Blood Pressure 1: 142/80 Code: 8480-6 BMI: 25.2 Code: 12687-5 Heart Rate 1: 99 bpm Height: 5'4" SpO2: 97% Weight: 147 lbs 03/06/2018 Blood Pressure 1: 140/80 Code: 8480-6 BMI: 26.1 Code: 90986-9 Heart Rate 1: 71 bpm Height: 5'4" SpO2: 98% Weight: 152 lbs 02/22/2018 Blood Pressure 1: 146/68 Code: 8480-6 BMI: 26.6 Code: 68522-3 Heart Rate 1: 88 bpm Height: 5'4" SpO2: 97% Weight: 155 lbs 12/13/2017 Blood Pressure 1: 132/68 Code: 8480-6 BMI: 26.6 Code: 10687-7 Heart Rate 1: 72 bpm Height: 5'4" SpO2: 94% Weight: 154 lbs 14 oz 11/29/2017 Blood Pressure 1: 130/64 Code: 8480-6 BMI: 26.1 Code: 46853-9 Heart Rate 1: 81 bpm Height: 5'4" SpO2: 94% Weight: 152 lbs 10/27/2017 Blood Pressure 1: 120/62 Code: 8480-6 BMI: 25.9 Code: 30785-0 Heart Rate 1: 70 bpm Height: 5'4" SpO2: 96% Weight: 151 lbs 07/26/2017 Blood Pressure 1: 146/70 Code: 8480-6 BMI: 26.3 Code: 41678-4 Heart Rate 1: 69 bpm Height: 5'4" SpO2: 98% Weight: 153 lbs 05/26/2017 Blood Pressure 1: 142/76 Code: 8480-6 BMI: 26.4 Code: 47172-9 Heart Rate 1: 59 bpm Height: 5'4" SpO2: 99% Weight: 154 lbs 04/11/2017 Blood Pressure 1: 134/64 Code: 8480-6 BMI: 26.6 Code: 67437-6 Heart Rate 1: 65 bpm Height: 5'4" SpO2: 98% Weight: 155 lbs 02/07/2017 Blood Pressure 1: 120/72 Code: 8480-6 Heart Rate 1: 72 bpm Height: 5'4" SpO2: 96% Weight: 01/26/2017 Blood Pressure 1: 146/68 Code: 8480-6 BMI: 26.4 Code: 55296-4 Heart Rate 1: 96 bpm Height: 5'4" SpO2: 97% Weight: 154 lbs 10/19/2016 Blood Pressure 1: 144/76 Code: 8480-6 BMI: 25.8 Code: 37720-6 Heart Rate 1: 68 bpm Height: 5'4" SpO2: 96% Weight: 150 lbs 8 oz 09/22/2016 Blood Pressure 1: 122/80 Code: 8480-6 BMI: 26.1 Code: 77805-6 Heart Rate 1: 111 bpm Height: 5'4" SpO2: 97% Weight: 152 lbs 08/31/2016 Blood Pressure 1: 152/82 Code: 8480-6 BMI: 27.1 Code: 41104-0 Heart Rate 1: 118 bpm Height: 5'4" SpO2: 96% Weight: 158 lbs 08/12/2016 Blood Pressure 1: 146/78 Code: 8480-6 BMI: 26.9 Code: 81703-2 Heart Rate 1: 68 bpm Height: 5'4" SpO2: 97% Weight: 157 lbs 07/28/2016 Blood Pressure 1: 128/64 Code: 8480-6 BMI: 27.1 Code: 77416-3 Heart Rate 1: 63 bpm Height: 5'4" SpO2: 97% Weight: 158 lbs 01/28/2016 Blood Pressure 1: 130/70 Code: 8480-6 BMI: 27.3 Code: 44714-9 Heart Rate 1: 60 bpm Height: 5'4" SpO2: 95% Weight: 159 lbs 07/29/2015 Blood Pressure 1: 136/80 Code: 8480-6 BMI: 28.1 Code: 39484-6 Heart Rate 1: 68 bpm Height: 5'4" SpO2: 96% Weight: 163 lbs 8 oz 03/31/2015 Blood Pressure 1: 138/88 Code: 8480-6 BMI: 27.5 Code: 53794-6 Heart Rate 1: 72 bpm Height: 5'4" Weight: 160 lbs 12/23/2014 Blood Pressure 1: 138/68 Code: 8480-6 BMI: 27.1 Code: 17689-1 Heart Rate 1: 63 bpm Height: 5'4" [...] data Encounters Encounter Performer Location Codes Date ([id number]) [id number] EST. PATIENT, LEVEL IV Diagnosis: Essential (primary) hypertension[ICD10: I10] Diagnosis: Nonrheumatic aortic (valve) stenosis[ICD10: I35.0] Diagnosis: Atrophy of thyroid (acquired)[ICD10: E03.4] Diagnosis: Chronic atrial fibrillation[ICD10: I48.2] Kandi Cabrera MD [facility] CPT-4: [id number] 04/03/2018 ([id number]) [id number] EST. PATIENT, LEVEL IV Diagnosis: Essential (primary) hypertension[ICD10: I10] Diagnosis: Chronic atrial fibrillation[ICD10: I48.2] Diagnosis: Nonrheumatic aortic (valve) stenosis[ICD10: I35.0] Diagnosis: Age-related osteoporosis without current pathological fracture[ICD10: M81.0] Kandi Cabrera MD [facility] CPT-4: 48630 03/06/201854599 EST. PATIENT, LEVEL III Diagnosis: Low back pain[ICD10: M54.5] Diagnosis: Dysuria[ICD10: R30.0] Diagnosis: Gastro-esophageal reflux disease without esophagitis[ICD10: K21.9] Payton Cabrera MD, [facility] CPT-4: 02372 02/22/2018 ([id number]) 79059 EST. PATIENT, LEVEL III Diagnosis: Atrophy of thyroid (acquired)[ICD10: E03.4] Diagnosis: Other iron deficiency anemias[ICD10: D50.8] Diagnosis: Epigastric pain[ICD10: R10.13] Kandi Cabrera MD [facility] CPT-4: 69478 12/13/2017 ([id number]) 72603 EST. PATIENT, LEVEL IV Diagnosis: Diverticulitis of large intestine without perforation or abscess without bleeding[ICD10: K57.32] Kandi Cabrera MD [facility] CPT-4: 82994 11/29/2017 ([id number]) 08180 EST. PATIENT, LEVEL IV Diagnosis: Atrophy of thyroid (acquired)[ICD10: E03.4] Diagnosis: Other iron deficiency anemias[ICD10: D50.8] Diagnosis: Epigastric pain[ICD10: R10.13] Diagnosis: Right lower quadrant pain[ICD10: R10.31] Diagnosis: Left lower quadrant pain[ICD10: R10.32] Kandi Cabrera MD, [facility] CPT-4: 29935 10/27/2017 49431 EST. PATIENT, LEVEL IV Diagnosis: Atrophy of thyroid (acquired)[ICD10: E03.4] Diagnosis: Other iron deficiency anemias[ICD10: D50.8] Diagnosis: Essential (primary) hypertension[ICD10: I10] Diagnosis: Gastro-esophageal reflux disease without esophagitis[ICD10: K21.9] Payton Cabrera MD, [facility] CPT-4: 20261 07/26/2017 ([id number]) 86479 EST. PATIENT, LEVEL IV Diagnosis: Other iron deficiency anemias[ICD10: D50.8] Diagnosis: Atrophy of thyroid (acquired)[ICD10: E03.4] Diagnosis: Tobacco use[ICD10: Z72.0] Diagnosis: Essential (primary) hypertension[ICD10: I10] Diagnosis: Low back pain[ICD10: M54.5] Kandi Cabrera MD, [facility] CPT-4: 09717 05/26/2017 ([id number]) 33069 EST. PATIENT, LEVEL IV Diagnosis: Shortness of breath[ICD10: R06.02] Diagnosis: Tobacco use[ICD10: Z72.0] Diagnosis: Chronic atrial fibrillation[ICD10: I48.2] Kandi Cabrera MD, [facility] CPT-4: 77242 04/11/2017 ([id number]) 31546 EST. PATIENT, LEVEL III Diagnosis: Unsteadiness on feet[ICD10: R26.81] Diagnosis: Tobacco use[ICD10: Z72.0] Kandi Cabrera MD, [facility] CPT-4: 78988 02/07/2017 ([id number]) 47362 EST. PATIENT, LEVEL IV Diagnosis: Cough[ICD10: R05] Diagnosis: Essential (primary) hypertension[ICD10: I10] Diagnosis: Chronic atrial fibrillation[ICD10: I48.2] Diagnosis: Unsteadiness on feet[ICD10: R26.81] Kandi Cabrera MD, [facility] CPT- 4: 96384 01/26/2017 ([id number]) 65471 EST. PATIENT, LEVEL IV Diagnosis: Essential (primary) hypertension[ICD10: I10] Diagnosis: Atrophy of thyroid (acquired)[ICD10: E03.4] Diagnosis: Tobacco use[ICD10: Z72.0] Diagnosis: Chronic atrial fibrillation[ICD10: I48.2] Diagnosis: Mixed hyperlipidemia[ICD10: E78.2] Kandi Cabrera MD, [facility] CPT- 4: 53816 10/19/2016 ([id number]) 14897 EST. PATIENT, LEVEL IV Diagnosis: Atrophy of thyroid (acquired)[ICD10: E03.4] Diagnosis: Mixed hyperlipidemia[ICD10: E78.2] Diagnosis: Essential (primary) hypertension[ICD10: I10] Kandi Cabrera MD, [facility] CPT-4: 00634 09/22/2016 ([id number]) 74190 EST. PATIENT, LEVEL IV Diagnosis: Essential (primary) hypertension[ICD10: I10] Diagnosis: Atrophy of thyroid (acquired)[ICD10: E03.4] Diagnosis: Chronic atrial fibrillation[ICD10: I48.2] Kandi Cabrera MD, [facility] CPT-4: 80816 08/31/2016 ([id number]) 33781 EST. PATIENT, LEVEL III Diagnosis: Low back pain[ICD10: M54.5] Diagnosis: Sacroiliitis, not elsewhere classified[ICD10: M46.1] Janeen Cabrera MD, [facility] CPT-4: 24098 08/12/2016 ([id number]) 44356 EST. PATIENT, LEVEL IV Diagnosis: Mixed hyperlipidemia[ICD10: E78.2] Diagnosis: Essential (primary) hypertension[ICD10: I10] Diagnosis: Atrophy of thyroid (acquired)[ICD10: E03.4] Kandi Cabrera MD, [facility] CPT-4: 32735 07/28/2016 ([id number]) 27320 EST. PATIENT, LEVEL IV Diagnosis: Hypothyroidism, unspecified[ICD10: E03.9] Diagnosis: Essential (primary) hypertension[ICD10: I10] Diagnosis: Mixed hyperlipidemia[ICD10: E78.2] Diagnosis: Cellulitis of left lower limb[ICD10: L03.116] Diagnosis: Encounter for immunization[ICD10: Z23] Kandi Cabrera MD, [facility] CPT-4: 63136 01/28/2016 ([id number] 29218 EST. PATIENT, LEVEL IV Diagnosis: Essential (primary) hypertension[ICD10: I10] Diagnosis: Hypothyroidism, unspecified[ICD10: E03.9] Diagnosis: Diarrhea, unspecified[ICD10: R19.7] Diagnosis: Tobacco use[ICD10: Z72.0] Diagnosis: Tobacco abuse counseling[ICD10: Z71.6] Diagnosis: Other obesity due to excess calories[ICD10: E66.09] Kandi Cabrera MD, [facility] CPT-4: 13463 07/29/2015 ([id number] 58467 EST. PATIENT, LEVEL IV Diagnosis: Essential (primary) hypertension[ICD10: I10] Diagnosis: Hypothyroidism, unspecified[ICD10: E03.9] Diagnosis: Actinic keratosis[ICD10: L57.0] Kandi Cabrera MD, [facility] CPT-4: 06675 03/31/2015 ([id number]) OFFICE VISIT, NEW - LEVEL 4 Diagnosis: ESSENTIAL HYPERTENSION[ICD9: 401.9] Diagnosis: HYPOTHYROIDISM[ICD9: 244.9] Diagnosis: HYPERLIPIDEMIA[ICD9: 272.4] Diagnosis: Osteoporosis[ICD9: 733.00] Diagnosis: OSTEOARTH NOS-UNSPEC[ICD9: 715.90] Diagnosis: Sacroiliitis[ICD9: 720.2] Kandi Cabrera MD, [facility] CPT-4: 20381 12/23/2014 Plan of Care Planned Activity Notes [...] Completed 05/05/2018 [phone] (15 min) Moderate 04/11/2018 Visit Plan: [...] improving. 04/03/2018 Appointment: [phone] [facility] [place] (15 min) Moderate 04/03/2018 Patient [...] a conversation about surgical intervention with her Project Manager Interior Design. 03/06/2018 Appointment: [phone] [facility] [place] (15 min) Moderate 03/06/2018 Patient [...] improving. 02/22/2018 Appointment: Payton Leon WPtel: [phone] [facility] (15 min) Moderate 02/22/2018 Patient Education: Patient Medication Summary Completed 02/22/2018 Patient Education: Back Pain Completed 02/22/2018 Visit Plan: Diarrhea - improved - pt advised to avoid seeds, nuts, popcorn, or any other food which has been proven to upset the pt's stomach. 12/13/2017 Appointment: Kandi Cabrera WPtel: [facility]5 [facility] [place] (15 min) Moderate 12/13/2017 Patient Education: Patient Medication Summary Completed 12/13/2017 Visit Plan: Diverticulitis - rx for antibiotic sent to pt's pharmacy - pt advised to avoid seeds, nuts, popcorn, or any other food which has been proven to upset the pt's stomach. 11/29/2017 Appointment: Kandi Cabrera WPtel: [facility] [place] (15 min) Moderate 11/29/2017 Patient Education: Patient Medication Summary Completed 11/29/2017 Appointment: Kandi Cabrera WPtel: [facility] [place] (15 min) Moderate 11/24/2017 Visit [...] 10 days 10/27/2017 Appointment: Kandi Cabrera WPtel: [facility] (15 min) Moderate 10/27/2017 Patient Education: [...] not improving. 07/26/2017 Appointment: Payton Leon WPtel: [facility] (30 min) Complex 07/26/2017 Patient Education: Patient Medication Summary Completed 07/26/2017 Care Plan: Iron Pending 07/26/2017 Care Plan: Referral Order SNOMED-CT : [id number] Pending 07/26/2017 Visit Plan: Hypertension - well [...] recommended. 05/26/2017 Appointment: [phone] [facility] (15 min) Moderate 05/26/2017 Patient Education: Patient Medication Summary Completed 05/26/2017 Patient Education: Patient Medication Summary Completed 05/19/2017 Care Plan: Iron Pending 05/19/2017 Visit Plan: Dyspnea on Exertion - uncontrolled - I have recommended pt to have Pulmonary function studies as well as a referral back to her Project Manager Interior Design - Dr. Hanna - I suspect she [...] of cigarettes". 04/11/2017 Appointment: Kandi Cabrera WPtel: [facility] [place] (15 min) Moderate 04/11/2017 Patient Education: Patient Medication Summary Completed 04/11/2017 Patient Education: Smoking and Tobacco Addiction Completed 04/11/2017 Care Plan: Referral Order SNOMED-CT : [id number] Pending 04/11/2017 Appointment: Kandi Cabrera WPtel: [phone] [facility] (15 min) Moderate 02/14/2017 Appointment: Injection 02/09/2017 Referral: [facility] WPtel: [phone] Patient informed. Completed 02/09/2017 Patient Education: Patient Medication Summary Completed 02/09/2017 Patient Education: Smoking and Tobacco Addiction Completed 02/09/2017 Visit Plan: Tobacco abuse - chronic condition for this patient. Patient has been counseled about need to stop smoking due to the negative health affects. 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 Rx for wellbutrin 75mg 1/2 pill bid. Gait instability - referral to [facility] for [facility] instability 02/07/2017 Appointment: Kandi Cabrera WPtel: [address] [place] [address] (15 min) Moderate 02/07/2017 Patient Education: Patient Medication Summary Completed 02/07/2017 Patient Education: Smoking and Tobacco Addiction Completed 02/07/2017 Care Plan: Referral Order SNOMED-CT : [id number] Pending 02/07/2017 Visit Plan: Cough - pt [...] uncontrolled. 01/26/2017 Appointment: Kandi Cabrera WPtel: [phone] [facility] (15 min) Moderate 01/26/2017 Patient Education: Patient [...] per week. 10/19/2016 Appointment: Kandi Cabrera WPtel: [address] [place], [place] [address] (15 min) Moderate 10/19/2016 Patient Education: Patient Medication Summary Completed 10/19/2016 Patient Education: Smoking and Tobacco Addiction Completed 10/19/2016 Patient Education: Hypertension Completed 10/19/2016 Visit Plan: Atrial Fibrillation - pt on chronic anticoagulation and is not optimally rate controlled. Pt is to see her locomotive crane engineer tomorrow, will discuss with him her plans [...] of control. 09/22/2016 Appointment: Kandi Cabrera WPtel: [facility] (15 min) Moderate 09/22/2016 Patient Education: [...] q 3 months or q 6 m [facility] based on previous levels of control. 08/31/2016 Appointment: Kandi Cabrera WPtel: [facility] (15 min) Moderate 08/31/2016 Patient Education: Patient Medication Summary Completed 08/31/2016 Patient Education: Smoking and Tobacco Addiction Completed 08/31/2016 Patient Education: Hypertension Completed 08/31/2016 Visit Plan: Sacroiliitis -kenalog injection today in the office- tylenol as directed-heat as directed-xray lumbar spine. Pt is to call if the symptoms do not improve or if they worsen. 08/12/2016 Appointment: Janeen Marsh WPtel: [facility] [place] (30 min) Complex 08/12/2016 Patient Education: Patient Medication Summary Completed 08/12/2016 Patient Education: Smoking and Tobacco Addiction Completed 08/12/2016 Appointment: Payton Leon WPtel: [facility] [facility] - Annual Wellness Visit 07/30/2016 [...] to medications. 07/28/2016 Appointment: Kandi Cabrera WPtel: [address] [place], [place] [address] (15 min) Moderate 07/28/2016 Patient Education: Patient [...] shot today 01/28/2016 Appointment: Kandi Cabrera WPtel: [facility] [place] (15 min) Moderate 01/28/2016 Patient [...] months based on previous levels of control. Deuce obacco user - recommended cessation Overweight - need to increase activity 07/29/2015 Appointment: Kandi Cabrera WPtel: [facility] [place] (15 min) Moderate 07/29/2015 Patient [...] of control. A ctinic keratosis - left mandaen and left nasal bridge - pt to use efudex on the lesions on the nose and face. 03/31/2015 Appointment: Kandi Cabrera WPtel: [phone] [facility] (15 min) Moderate 03/31/2015 Patient Education: Patient [...] levels. 12/23/2014 Appointment: Kandi Cabrera WPtel: [phone] [facility] [place] (S) New Patient 12/23/2014 Patient Education: Patient Medication Summary Completed 12/23/2014 Patient Education: Hypertension Completed 12/23/2014 Care Plan: Referral Order SNOMED-CT : [id number] Ordered 12/23/2014 Referral: External, Ordering Provider Referral Completed Referral: External, Ordering Provider Referral Appointment Requested Referral: Maggi Reaves Referral Initiated Ref[phone] Referral Appointment Requested Referral: External, Ordering Provider Dr. Hanna's office has already contacted her about an appt scheduled for April 25 at 9:00 AM. Completed Instructions Comment . Dyspnea on Exertion - uncontrolled - I have recommended pt to have Pulmonary function studies as well as a referral back to her Project Manager Interior Design - Dr. Hanna - I suspect she [...] will be completely off of cigarettes". . Cough - pt given rx for [...] their heart rate is becoming uncontrolled. . Diarrhea - improved - pt advised to avoid seeds, nuts, popcorn, or any other food which has been proven to upset the pt's stomach. take 1/2 of an venu or zyrtec [...] DEXA scan, check vitamin D levels. . Atrial Fibrillation - pt on chronic anticoagulation and is not optimally rate controlled. Pt is to see her locomotive crane engineer tomorrow, will discuss with him her plans [...] Back pain - stretching exercises recommended. . Hypertension - well controlled - continue [...] assure normal liver response to medications. . Hypothyroidism - pt with chronic hypothyroidism, [...] levels of control. Actinic keratosis - left mandaen and left nasal bridge - pt to use efudex on the lesions on the nose and face. PROBIOTIC - Finexkap, lactobacilus/acidophilis brand probiotic - these can be [...] need to increase activity . Hypertension - well controlled - continue [...] a conversation about surgical intervention with her Project Manager Interior Design. . Diverticulitis - rx for antibiotic sent [...] - referral to [facility] for gait instability take zantac in the morning and omeprazole [...] based on previous levels of control. . Medicare Exam - today we discussed [...]
--- OUTSIDE RECORDS SUMMARY | 2018-12-29 14:18 | XMS REPORT | CCD ---
Author Author Kandi Cabrera MD, [facility] Address [address] [place] [address] Phone Care Team Providers Care Neurology Hospitalist Name Role Phone PP Unavailable CCM Unavailable Summary Purpose Interface Exchange Insurance Providers Payer name Policy type / Coverage type Covered constitution party ID Effective Begin Date Effective End Date [facility] Commercial Insurance [id number] Unknown WPS Medicare Part B Commercial Insurance [id number] 2017 Unknown Family history Father Diagnosis Age [...] Unknown Retired 12/23/[address]: 23968379 Current every day smoker 12/23/2014 Number of years using tobacco Unknown > 50 trying to quit 12/23/2014 Number of cigarettes/day Unknown 10 (Half a pack) 12/23/[address]: 602625998 Never drinks alcohol 12/23/2014 Allergies, Adverse Reactions, Alerts Substance Reaction Codes Entered Date Inactivated Date Status ciprofloxacin RxNorm: 07950 05/05/2018 No Inactive Date Active SULFA(SULFONAMIDE ANTIBIOTICS) [...] Fill Instructions Lasix 20 mg tablet RxNorm: 440015 1 Tablet(s) PO daily as needed not more than one time a day 05/19/2018 09/15/2018 Active prednisone 20 mg tablet RxNorm: 864153 2 Tablet(s) PO daily 02/22/2018 02/26/2018 Inactive Cipro 500 mg tablet RxNorm: 069419 1 Tablet(s) PO BID 02/22/2018 02/28/2018 Inactive Synthroid 100 mcg tablet RxNorm: 299994 1 Tablet(s) PO daily 02/13/2018 05/08/2019 Active potassium chloride ER 10 mEq tablet,extended release RxNorm: 282022 1 Tablet(s) PO UD take on days that you take a lasix pill 02/13/2018 02/07/2019 Active simvastatin 20 mg tablet RxNorm: 507210 1 Tablet(s) PO QHS 01/13/2018 01/07/2019 Active metronidazole 500 mg tablet RxNorm: 732495 1 Tablet(s) PO TID 11/29/2017 12/08/2017 Inactive alendronate 70 mg tablet RxNorm: 738112 1 Tablet(s) PO weekly 11/29/2017 03/05/2018 Inactive omeprazole 40 mg capsule,delayed release RxNorm: 856291 1 Capsule(s) PO daily 11/11/2017 11/05/2018 Active Flagyl 500 mg tablet RxNorm: 711410 1 Tablet(s) PO TID 10/27/2017 11/05/2017 Inactive sucralfate 1 gram tablet RxNorm: 255348 1 Tablet(s) PO TID 07/26/2017 07/20/2018 Active fluticasone 50 mcg/actuation nasal spray,suspension RxNorm: 2323999 1 [place] NASAL daily 07/26/2017 No Stop Date Active Protonix 40 mg tablet,delayed release RxNorm: 681059 1 Tablet(s) PO daily 07/26/2017 10/23/2017 Inactive Tricor 145 mg tablet RxNorm: 699171 1 Tablet(s) PO daily 05/26/2017 05/20/2018 Active perphenazine-amitriptyline 2 mg-10 mg tablet RxNorm: 647849 2 Tablet(s) PO daily 05/26/2017 05/20/2018 Active bupropion HCl 75 mg tablet RxNorm: 593570 1/2 Tablet(s) PO BID 02/07/2017 05/07/2017 Inactive Eliquis 5 mg tablet RxNorm: 7650694 1 Tablet(s) PO BID 01/26/2017 01/20/2018 Inactive sotalol 80 mg tablet RxNorm: 0020656 1 Tablet(s) PO BID 01/26/2017 04/20/2018 Inactive potassium chloride ER 10 mEq tablet,extended release RxNorm: 758834 1 Tablet(s) PO UD take on days that you take a lasix pill 01/26/2017 01/20/2018 Inactive Synthroid 100 mcg tablet RxNorm: 308071 1 Tablet(s) PO daily 01/26/2017 02/12/2018 Inactive diltiazem ER 240 mg capsule,extended release RxNorm: 993466 1 Capsule(s) PO BID 01/26/2017 05/03/2017 Inactive Lasix 20 mg tablet RxNorm: 381066 1 Tablet(s) PO daily as needed not more than one time a day 01/26/2017 05/25/2017 Inactive simvastatin 20 mg tablet RxNorm: 424443 1 Tablet(s) PO QHS 12/21/2016 12/15/2017 Inactive alendronate 70 mg tablet RxNorm: 944959 1 Tablet(s) PO weekly 12/21/2016 11/28/2017 Inactive omeprazole 40 mg capsule,delayed release RxNorm: 058709 1 Capsule(s) PO daily 10/19/2016 10/12/2017 Inactive metoprolol succinate ER 100 mg tablet,extended release 24 hr RxNorm: 740980 1.5 Tablet(s) PO daily 09/17/2016 10/18/2016 Inactive Dosage increased by Dr. Vazquez potassium chloride ER 10 mEq tablet,extended release RxNorm: 174063 1 Tablet(s) PO UD take on days that you take a lasix pill 08/31/2016 12/28/2016 Inactive Lasix 20 mg tablet RxNorm: 896810 1 Tablet(s) PO daily as needed not more than one time a day 08/31/2016 12/28/2016 Inactive Kenalog 40 mg/mL suspension for injection RxNorm: 5769870 1 Milliliter(s) Inj 08/12/2016 08/12/2016 Inactive Tricor 145 mg tablet RxNorm: 153305 1 Tablet(s) PO daily 05/21/2016 05/15/2017 Inactive atenolol 25 mg tablet RxNorm: 707831 1 Tablet(s) PO daily 05/21/2016 08/30/2016 Inactive sucralfate 1 gram tablet RxNorm: 306089 1 Tablet(s) PO TID 05/21/2016 05/15/2017 Inactive enalapril maleate 10 mg tablet RxNorm: 028866 1 Tablet(s) PO daily 04/26/2016 08/30/2016 Inactive perphenazine-amitriptyline 2 mg-10 mg tablet RxNorm: 940100 2 Tablet(s) PO daily 04/26/2016 04/20/2017 Inactive fluticasone 50 mcg/actuation nasal spray,suspension RxNorm: 7550614 1 [place] NASAL daily 04/26/2016 07/25/2017 Inactive Synthroid 100 mcg tablet RxNorm: 277678 1 Tablet(s) PO daily 02/09/2016 01/25/2017 Inactive Synthroid 100 mcg tablet RxNorm: 203917 1 Tablet(s) PO daily 02/09/2016 02/08/2016 Inactive Keflex 500 mg capsule RxNorm: 994925 1 Capsule(s) PO TID 01/28/2016 02/01/2016 Inactive hydrochlorothiazide 25 mg tablet RxNorm: 891537 TAKE 1 TABLET DAILY 01/07/2016 08/30/2016 Inactive enalapril maleate 10 mg tablet RxNorm: 544895 1 Tablet(s) PO daily 12/26/2015 04/25/2016 Inactive hydrochlorothiazide 25 mg tablet RxNorm: 689888 1 Tablet(s) PO daily 12/08/2015 08/30/2016 Inactive omeprazole 40 mg capsule,delayed release RxNorm: 183606 1 Capsule(s) PO daily 12/08/2015 10/18/2016 Inactive simvastatin 20 mg tablet RxNorm: 457465 1 Tablet(s) PO QHS 11/14/2015 11/07/2016 Inactive alendronate 70 mg tablet RxNorm: 291102 1 Tablet(s) PO weekly 10/31/2015 10/24/2016 Inactive Synthroid 112 mcg tablet RxNorm: 354021 1 Tablet(s) PO daily 07/16/2015 02/08/2016 Inactive sucralfate 1 gram tablet RxNorm: 935143 1 Tablet(s) PO TID 06/17/2015 05/20/2016 Inactive perphenazine-amitriptyline 2 mg-10 mg tablet RxNorm: 662441 2 Tablet(s) PO daily 06/17/2015 04/25/2016 Inactive fluticasone 50 mcg/actuation nasal spray,suspension RxNorm: 4883903 1 [place] NASAL daily 06/17/2015 04/25/2016 Inactive fluorouracil 5 % topical cream RxNorm: 996336 APPLY 1 APPLICATION TOPICALLY TWO TIMES A DAY 06/16/2015 06/25/2015 Inactive fluticasone 50 mcg/actuation nasal spray,suspension RxNorm: 361312 1 [place] NASAL daily 06/12/2015 06/16/2015 Inactive atenolol 25 mg tablet RxNorm: 397100 1 Tablet(s) PO daily 05/14/2015 05/07/2016 Inactive Tricor 145 mg tablet RxNorm: 662268 1 Tablet(s) PO daily 04/23/2015 04/16/2016 Inactive Synthroid 125 mcg tablet RxNorm: 900315 1 Tablet(s) PO daily 03/31/2015 07/15/2015 Inactive fluorouracil 5 % topical cream RxNorm: 327310 1 Application TOP BID 03/31/2015 04/09/2015 Inactive Synthroid 137 mcg tablet RxNorm: 543360 1 Tablet(s) PO daily 12/25/2014 12/24/2014 Inactive Synthroid 137 mcg tablet RxNorm: 797339 1 Tablet(s) PO daily 12/25/2014 03/30/2015 Inactive Voltaren 1 % topical gel RxNorm: 195515 4 Gram(s) TOP QID 12/23/2014 04/21/2015 Inactive alendronate 70 mg tablet RxNorm: 918877 1 Tablet(s) PO weekly 12/23/2014 12/22/2014 Inactive alendronate 70 mg tablet RxNorm: 738900 1 Tablet(s) PO weekly 12/23/2014 10/30/2015 Inactive Fosamax 70 mg tablet RxNorm: 834870 1 Tablet(s) PO weekly QW 12/23/2014 01/27/2016 Inactive omeprazole 40 mg capsule,delayed release RxNorm: 944067 1 Capsule(s) PO daily 12/18/2014 12/07/2015 Inactive omeprazole 40 mg capsule,delayed release RxNorm: 709548 1 Capsule(s) PO daily 12/18/2014 12/17/2014 Inactive hydrochlorothiazide 25 mg tablet RxNorm: 965582 1 Tablet(s) PO daily 12/18/2014 12/17/2014 Inactive hydrochlorothiazide 25 mg tablet RxNorm: 167480 1 Tablet(s) PO daily 12/18/2014 12/07/2015 Inactive L-Lysine 1,000 mg tablet RxNorm: 616829 1 Tablet(s) PO daily No Start Date Active folic acid 400 mcg tablet RxNorm: 653859 1 Tablet(s) PO daily No Start Date Active B12 1000 mcg RxNorm: 1/2 Tablet(s) PO daily No Start Date Active Vitamin D3 1,000 unit chewable tablet RxNorm: 645513 1 Tablet(s) PO daily No Start Date Active diltiazem 120 mg tablet RxNorm: 405048 1 Tablet(s) PO daily No Start Date Active metoprolol succinate ER 100 mg tablet,extended release 24 hr RxNorm: 033694 1 Tablet(s) PO daily No Start Date 09/16/2016 Inactive enalapril maleate 10 mg tablet RxNorm: 374756 1 Tablet(s) PO daily No Start Date 12/25/2015 Inactive perphenazine-amitriptyline 2 mg-10 mg tablet RxNorm: 230383 2 Tablet(s) PO daily No Start Date 06/16/2015 Inactive sucralfate 1 gram tablet RxNorm: 478548 1 Tablet(s) PO TID No Start Date 06/16/2015 Inactive hydrochlorothiazide 25 mg tablet RxNorm: 521933 1 Tablet(s) PO daily No Start Date 08/30/2016 Inactive vitamin E (dl, acetate) 400 unit capsule RxNorm: 788766 1 Capsule(s) PO daily No Start Date 03/05/2018 Inactive sotalol 80 mg tablet RxNorm: 7804389 1 Tablet(s) PO BID No Start Date 01/25/2017 Inactive Synthroid 150 mcg tablet RxNorm: 504666 1 Tablet(s) PO daily No Start Date 12/24/2014 Inactive simvastatin 20 mg tablet RxNorm: 221046 1 Tablet(s) PO daily No Start Date 11/13/2015 Inactive Vitamin C RxNorm: PO 1000mg qd No Start Date 03/05/2018 Inactive Fosamax 70 mg tablet RxNorm: 655675 1 Tablet(s) PO weekly No Start Date 12/22/2014 Inactive Tricor 145 mg tablet RxNorm: 313103 1 Tablet(s) PO daily No Start Date 04/22/2015 Inactive diltiazem ER 180 mg capsule,24 hr,extended release RxNorm: 515742 1 Capsule(s) PO daily No Start Date 03/05/2018 Inactive diltiazem ER 240 mg capsule,extended release RxNorm: 795987 1 Capsule(s) PO BID No Start Date 01/25/2017 Inactive Eliquis 5 mg tablet RxNorm: 7869384 1 Tablet(s) PO BID No Start Date 01/25/2017 Inactive fluticasone 50 mcg/actuation nasal spray,suspension RxNorm: 962329 1 [place] NASAL daily No Start Date 06/11/2015 Inactive atenolol 25 mg tablet RxNorm: 772868 1 Tablet(s) PO daily No Start Date 05/13/2015 Inactive Medication Administered Medication Codes Instructions Start Date Status Kenalog 40 mg/mL suspension for injection RxNorm: 0612582 1Milliliter 08/12/2016 No longer Active Immunizations Vaccine Codes Date Status Influenza CVX: 141 03/21/2018 completed Influenza CVX: 141 02/09/2017 completed Pneumococcal (Adult) CVX: 133 02/09/2017 completed Influenza CVX: 141 01/28/2016 completed Zoster CVX: 121 07/22/2011 completed Pneumococcal CVX: 33 11/20/2008 completed Assessments Condition Codes Effective Dates Encounter for general adult medical examination with abnormal findings ICD-10: Z00.01 ICD-9: V70.0 05/05/2018 Essential (primary) hypertension ICD-10: I10 ICD-9: 401.9 04/03/2018 Nonrheumatic aortic (valve) stenosis ICD-10: I35.0 ICD-9: 424.1 04/03/2018 Chronic atrial fibrillation ICD-10: I48.2 ICD-9: 427.31 04/03/2018 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 ICD-9: 244.8 04/03/2018 Age-related osteoporosis without current pathological fracture ICD-10: M81.0 ICD-9: 733.00 03/06/2018 Dysuria ICD-10: R30.0 ICD-9: 788.1 02/22/2018 Gastro-esophageal reflux disease without esophagitis ICD-10: K21.9 ICD-9: 530.81 02/22/2018 Low back pain ICD-10: M54.5 ICD-9: 724.2 02/22/2018 Epigastric pain ICD-10: R10.13 ICD-9: 789.06 12/13/2017 Other iron deficiency anemias ICD-10: D50.8 ICD-9: 280.1 12/13/2017 Diverticulitis of large intestine without perforation [...] elsewhere classified ICD-10: M46.1 ICD-9: 720.2 08/12/2016 Cellulitis of left lower limb ICD-10: L03.116 ICD-9: 682.6 01/28/2016 Hypothyroidism, unspecified ICD-10: E03.9 ICD-9: 244.9 01/28/2016 Encounter for immunization ICD-10: Z23 ICD-9: V04.81 01/28/2016 Diarrhea, unspecified ICD-10: R19.7 ICD-9: 787.91 07/29/2015 Tobacco abuse counseling ICD-10: Z71.6 ICD-9: V65.42 07/29/2015 Other obesity due to excess calories ICD-10: E66.09 ICD-9: 278.00 07/29/2015 Actinic keratosis ICD-10: L57.0 ICD-9: 702.0 03/31/2015 Osteoporosis ICD-9: 733.00 12/23/2014 ESSENTIAL HYPERTENSION ICD-9: 401.9 12/23/2014 HYPOTHYROIDISM ICD-9: 244.9 12/23/2014 HYPERLIPIDEMIA ICD-9: 272.4 12/23/2014 OSTEOARTH NOS-UNSPEC ICD-9: 715.90 12/23/2014 Sacroiliitis ICD-9: 720.2 12/23/2014 Reason For Visit Reason For Visit [...] 29.9 pg 03/17/2018 Cbc With Differential Ord2 [place]% 13.3 % 03/17/2018 Cbc With Differential Ord2 [...] 0.90 K/ul 03/17/2018 Cbc With Differential Ord2 [place] ABS# 0.8 K/ul 03/17/2018 Cbc With Differential [...] 30.2 pg 02/22/2018 Cbc With Differential Ord2 [place]% 11.5 % 02/22/2018 Cbc With Differential Ord2 MCHC 32.4 pg 02/22/2018 Cbc With Differential Ord2 Eos% 3.5 % 02/22/2018 Cbc With Differential Ord2 Baso% 0.8 % 02/22/2018 Cbc With Differential Ord2 PLT 414 K/ul 02/22/2018 Cbc With Differential Ord2 RDW 15.4 % 02/22/2018 Cbc With Differential Ord2 Neut ABS# 4.12 K/ul 02/22/2018 Cbc With Differential Ord2 Lymph ABS# 0.86 K/ul 02/22/2018 Cbc With Differential Ord2 [place] ABS# 0.7 K/ul 02/22/2018 Cbc With Differential Ord2 Eos ABS# 0.2 K/ul 02/22/2018 Cbc With Differential Ord2 Baso ABS# 0.1 K/ul 02/22/2018 Tsh Ord6 TSH (3rd IS) 0.66 uIU/mL 02/22/2018 Comp Metabolic Yqw112 NA 136 mEq/L 02/22/2018 Comp Metabolic Bbh963 K 4.4 mEq/L 02/22/2018 Comp Metabolic Kjk943 CL 102 mEq/L 02/22/2018 Comp Metabolic Hta547 CO2 23.0 mEq/L 02/22/2018 Comp Metabolic Gyt502 ANION GAP 15 02/22/2018 Comp Metabolic Eqd159 GLUCOSE 94 mg/dL 02/22/2018 Comp Metabolic Dro595 Creat 1.2 mg/dL 02/22/2018 Comp Metabolic Zhj259 eGFR 46 ml/min/1.73m2 02/22/2018 Comp Metabolic Iyt512 BUN 31 mg/dL 02/22/2018 Comp Metabolic Oxn146 B/C Ratio 25.8 Ratio 02/22/2018 Comp Metabolic Mww575 CALCIUM 9.2 mg/dL 02/22/2018 Comp Metabolic Nzv470 ALK PHOS 34 U/L 02/22/2018 Comp Metabolic Bjk783 AST(SGOT) 18 U/L 02/22/2018 Comp Metabolic Hai534 ALT(SGPT) 8 U/L 02/22/2018 Comp Metabolic Lhz922 BILI T 0.4 mg/dL 02/22/2018 Comp Metabolic Xcv976 ALBUMIN 3.6 g/dL 02/22/2018 Comp Metabolic Xpr549 TPRO 6.2 g/dL 02/22/2018 Comp Metabolic Str326 GLOB 2.6 g/dL 02/22/2018 Comp Metabolic Ovo661 A/G Ratio 1.4 Ratio 02/22/2018 Comp Metabolic Xsd304 Osmo 278 mOsmo 02/22/2018 Free T4 Hsl349 FREE T4 1.22 ng/dL 02/22/2018 Lipid Ord30 CHOL 132 mg/dL 10/27/2017 Lipid Ord30 HDL 30.0 mg/dl 10/27/2017 Lipid Ord30 TRIG 213 mg/dL 10/27/2017 Lipid Ord30 LDL 59 mg/dL 10/27/2017 Lipid Ord30 C/HDL 4.4 Ratio 10/27/2017 Comp Metabolic Iou856 NA 135 mEq/L 10/27/2017 Comp Metabolic Uwf427 K 4.7 mEq/L 10/27/2017 Comp Metabolic Ska131 CL 101 mEq/L 10/27/2017 Comp Metabolic Xbk205 CO2 23.0 mEq/L 10/27/2017 Comp Metabolic Vzx826 ANION GAP 16 10/27/2017 Comp Metabolic Qje718 GLUCOSE 84 mg/dL 10/27/2017 Comp Metabolic Smm239 Creat 1.2 mg/dL 10/27/2017 Comp Metabolic Whr834 eGFR 46 ml/min/1.73m2 10/27/2017 Comp Metabolic Bfg839 BUN 30 mg/dL 10/27/2017 Comp Metabolic Rvb295 B/C Ratio 25.2 Ratio 10/27/2017 Comp Metabolic Sxt879 CALCIUM 9.4 mg/dL 10/27/2017 Comp Metabolic Vni523 ALK PHOS 30 U/L 10/27/2017 Comp Metabolic Khv520 AST(SGOT) 25 U/L 10/27/2017 Comp Metabolic Iax005 ALT(SGPT) 12 U/L 10/27/2017 Comp Metabolic Vdx360 BILI T 0.5 mg/dL 10/27/2017 Comp Metabolic Woq860 ALBUMIN 3.7 g/dL 10/27/2017 Comp Metabolic Wdh276 TPRO 6.5 g/dL 10/27/2017 Comp Metabolic Xfz286 GLOB 2.8 g/dL 10/27/2017 Comp Metabolic Ymu290 A/G Ratio 1.3 Ratio 10/27/2017 Comp Metabolic Esg609 Osmo 275 mOsmo 10/27/2017 Cbc With Differential [...] 30.7 pg 10/27/2017 Cbc With Differential Ord2 [place]% 11.3 % 10/27/2017 Cbc With Differential Ord2 MCHC 32.6 pg 10/27/2017 Cbc With Differential Ord2 Eos% 3.8 % 10/27/2017 Cbc With Differential Ord2 Baso% 0.6 % 10/27/2017 Cbc With Differential Ord2 PLT 364 K/ul 10/27/2017 Cbc With Differential Ord2 RDW 16.5 % 10/27/2017 Cbc With Differential Ord2 Neut ABS# 3.03 K/ul 10/27/2017 Cbc With Differential Ord2 Lymph ABS# 1.16 K/ul 10/27/2017 Cbc With Differential Ord2 [place] ABS# 0.6 K/ul 10/27/2017 Cbc With Differential Ord2 Eos ABS# 0.2 K/ul 10/27/2017 Cbc With Differential Ord2 Baso ABS# 0.0 K/ul 10/27/2017 Tsh Ord6 TSH (3rd IS) 0.51 uIU/mL 10/27/2017 Tibc Ord40 Iron 123 ug/dl 10/27/2017 Tibc Ord40 UIBC 319 ug/dL 10/27/2017 Tibc Ord40 TIBC 442 ug/dL 10/27/2017 Tibc Ord40 Fe-%Sat 27.8 % 10/27/2017 Free T4 Vde918 FREE T4 1.11 ng/dL 10/27/2017 Hgb & Hct Ord65 HGB 12.2 g/dl 07/29/2017 Hgb & Hct Ord65 HCT 38.8 % 07/29/2017 Tsh Ord6 TSH (3rd IS) 0.46 uIU/mL 07/26/2017 Free T4 Uce041 FREE T4 1.00 ng/dL 07/26/2017 Tibc Ord40 Iron 79 ug/dl 07/26/2017 Tibc Ord40 UIBC 380 ug/dL 07/26/2017 Tibc Ord40 TIBC 459 ug/dL 07/26/2017 Tibc Ord40 Fe-%Sat 17.2 % 07/26/2017 Ferritin Ord22 FERRITIN 83.6 ng/mL 07/26/2017 Tibc Ord40 Iron 32 ug/dl 05/20/2017 Tibc Ord40 UIBC 601 ug/dL 05/20/2017 Tibc Ord40 TIBC 633 ug/dL 05/20/2017 Tibc Ord40 Fe-%Sat 5.1 % 05/20/2017 Hgb & Hct Ord65 HGB 9.4 g/dl 05/20/2017 Hgb & Hct Ord65 HCT 29.8 % 05/20/2017 Ferritin Ord22 FERRITIN 5.5 ng/mL 05/20/2017 Free T4 Dfm628 FREE T4 1.08 ng/dL 08/02/2016 Comp Metabolic Wap946 NA 139 mEq/L 08/02/2016 Comp Metabolic Boo183 K 5.2 mEq/L 08/02/2016 Comp Metabolic Fmz715 CL 108 mEq/L 08/02/2016 Comp Metabolic Gun075 CO2 22.0 mEq/L 08/02/2016 Comp Metabolic Eii160 ANION GAP 14 08/02/2016 Comp Metabolic Dqn364 GLUCOSE 103 mg/dL 08/02/2016 Comp Metabolic Blz103 Creat 1.1 mg/dL 08/02/2016 Comp Metabolic Xim568 eGFR 54 ml/min/1.73m2 08/02/2016 Comp Metabolic Wvk892 BUN 26 mg/dL 08/02/2016 Comp Metabolic Ccd599 B/C Ratio 24.8 Ratio 08/02/2016 Comp Metabolic Akf020 CALCIUM 9.4 mg/dL 08/02/2016 Comp Metabolic Wgj971 ALK PHOS 41 U/L 08/02/2016 Comp Metabolic Rvz829 AST(SGOT) 18 U/L 08/02/2016 Comp Metabolic Pvt291 ALT(SGPT) 10 U/L 08/02/2016 Comp Metabolic Klh127 BILI T 0.3 mg/dL 08/02/2016 Comp Metabolic Cdt682 ALBUMIN 3.7 g/dL 08/02/2016 Comp Metabolic Dcz190 TPRO 6.5 g/dL 08/02/2016 Comp Metabolic Aiv072 GLOB 2.8 g/dL 08/02/2016 Comp Metabolic Gnw611 A/G Ratio 1.3 Ratio 08/02/2016 Comp Metabolic Kmr542 Osmo 283 mOsmo 08/02/2016 Cbc With Differential Ord2 WBC 7.85 K/ul 08/02/2016 Cbc With Differential Ord2 RBC 4.19 M/ul 08/02/2016 Cbc With Differential Ord2 HGB 13.0 g/dl 08/02/2016 Cbc With Differential Ord2 HCT 39.6 % 08/02/2016 Cbc With Differential Ord2 Neut% 68.2 % 08/02/2016 Cbc With Differential Ord2 Lymph% 18.3 % 08/02/2016 Cbc With Differential Ord2 MCV 94.5 fl 08/02/2016 Cbc With Differential Ord2 [place]% 9.4 % 08/02/2016 Cbc With Differential Ord2 MCH 31.0 pg 08/02/2016 Cbc With Differential Ord2 MCHC 32.8 pg 08/02/2016 Cbc With Differential Ord2 Eos% 3.2 % 08/02/2016 Cbc With Differential Ord2 PLT 152 K/ul 08/02/2016 Cbc With Differential Ord2 Baso% 0.9 % 08/02/2016 Cbc With Differential Ord2 RDW 16.0 % 08/02/2016 Cbc With Differential Ord2 Neut ABS# 5.35 K/ul 08/02/2016 Cbc With Differential Ord2 Lymph ABS# 1.44 K/ul 08/02/2016 Cbc With Differential Ord2 [place] ABS# 0.7 K/ul 08/02/2016 Cbc With Differential Ord2 Eos ABS# 0.3 K/ul 08/02/2016 Cbc With Differential Ord2 Baso ABS# 0.1 K/ul 08/02/2016 Tsh Ord6 hTSH II 0.21 uIU/mL 08/02/2016 Lipid Ord30 CHOL 142 mg/dL 08/02/2016 Lipid Ord30 HDL 40.0 mg/dl 08/02/2016 Lipid Ord30 TRIG 169 mg/dL 08/02/2016 Lipid Ord30 LDL 68 mg/dL 08/02/2016 Lipid Ord30 C/HDL 3.6 Ratio 08/02/2016 Tsh Ord6 hTSH II 0.35 uIU/mL 05/13/2016 Free T4 Qxa359 FREE T4 0.78 ng/dL 05/13/2016 Free T4 Nzr337 FREE T4 1.13 ng/dL 01/28/2016 Tsh Ord6 hTSH II 0.19 uIU/mL 01/28/2016 Free T4 Ubt084 FREE T4 1.19 ng/dL 07/14/2015 Cbc With Differential Ord2 WBC 7.49 K/ul [...] 30.2 pg 07/14/2015 Cbc With Differential Ord2 [place]% 9.1 % 07/14/2015 Cbc With Differential Ord2 Eos% 2.5 % 07/14/2015 Cbc With Differential Ord2 MCHC 32.5 pg 07/14/2015 Cbc With Differential Ord2 PLT 344 K/ul 07/14/2015 Cbc With Differential Ord2 Baso% 0.5 % 07/14/2015 Cbc With Differential Ord2 RDW 15.1 % 07/14/2015 Cbc With Differential Ord2 Neut ABS# 4.78 K/ul 07/14/2015 Cbc With Differential Ord2 Lymph ABS# 1.80 K/ul 07/14/2015 Cbc With Differential Ord2 [place] ABS# 0.7 K/ul 07/14/2015 Cbc With Differential [...] Ord30 C/HDL 3.0 Ratio 07/14/2015 Comp Metabolic Dxi146 NA 136 mEq/L 07/14/2015 Comp Metabolic Sjk452 K 4.4 mEq/L 07/14/2015 Comp Metabolic Iuf876 CL 101 mEq/L 07/14/2015 Comp Metabolic Bzi672 CO2 27.0 mEq/L 07/14/2015 Comp Metabolic Vtq044 ANION GAP 12 07/14/2015 Comp Metabolic Jvw419 GLUCOSE 97 mg/dL 07/14/2015 Comp Metabolic Myx691 Creat 1.0 mg/dL 07/14/2015 Comp Metabolic Cwz879 eGFR 56 ml/min/1.73m2 07/14/2015 Comp Metabolic Ndx171 BUN 27 mg/dL 07/14/2015 Comp Metabolic Myg616 B/C Ratio 26.7 Ratio 07/14/2015 Comp Metabolic Jto543 CALCIUM 9.3 mg/dL 07/14/2015 Comp Metabolic Atu106 ALK PHOS 33 U/L 07/14/2015 Comp Metabolic Arn566 AST(SGOT) 14 U/L 07/14/2015 Comp Metabolic Dao890 ALT(SGPT) 8 U/L 07/14/2015 Comp Metabolic Men394 BILI T 0.4 mg/dL 07/14/2015 Comp Metabolic Qxc270 ALBUMIN 3.8 g/dL 07/14/2015 Comp Metabolic Lxw095 TPRO 6.6 g/dL 07/14/2015 Comp Metabolic Set154 GLOB 2.8 g/dL 07/14/2015 Comp Metabolic Ctc421 A/G Ratio 1.4 Ratio 07/14/2015 Comp Metabolic Rif124 Osmo 277 mOsmo 07/14/2015 Tsh Ord6 hTSH II 0.23 uIU/mL 07/14/2015 Free T4 Vhq210 FREE T4 1.22 ng/dL 03/26/2015 Tsh Ord6 hTSH II 0.20 uIU/mL 03/26/2015 Comp Metabolic Qxz141 NA 135 mEq/L 03/26/2015 Comp Metabolic Tpk730 K 5.0 mEq/L 03/26/2015 Comp Metabolic Vic349 CL 99 mEq/L 03/26/2015 Comp Metabolic Wyy200 CO2 27.0 mEq/L 03/26/2015 Comp Metabolic Chi222 ANION GAP 14 03/26/2015 Comp Metabolic Orl188 GLUCOSE 88 mg/dL 03/26/2015 Comp Metabolic Voe087 Creat 1.1 mg/dL 03/26/2015 Comp Metabolic Ril259 eGFR 50 ml/min/1.73m2 03/26/2015 Comp Metabolic Zbo411 BUN 27 mg/dL 03/26/2015 Comp Metabolic Bfa614 B/C Ratio 24.1 Ratio 03/26/2015 Comp Metabolic Upf224 CALCIUM 9.9 mg/dL 03/26/2015 Comp Metabolic Hbb432 ALK PHOS 30 U/L 03/26/2015 Comp Metabolic Kno391 AST(SGOT) 16 U/L 03/26/2015 Comp Metabolic Mva942 ALT(SGPT) 8 U/L 03/26/2015 Comp Metabolic Hor373 BILI T 0.4 mg/dL 03/26/2015 Comp Metabolic Wis331 ALBUMIN 3.9 g/dL 03/26/2015 Comp Metabolic Cay044 TPRO 6.4 g/dL 03/26/2015 Comp Metabolic Pve539 GLOB 2.5 g/dL 03/26/2015 Comp Metabolic Ifb211 A/G Ratio 1.6 Ratio 03/26/2015 Comp Metabolic Pdz350 Osmo 275 mOsmo 03/26/2015 Lipid Ord30 CHOL 147 mg/dL 03/26/2015 Lipid Ord30 HDL 43.0 mg/dl 03/26/2015 Lipid Ord30 TRIG 146 mg/dL 03/26/2015 Lipid Ord30 LDL 75 mg/dL 03/26/2015 Lipid Ord30 C/HDL 3.4 Ratio 03/26/2015 Cbc With Differential Ord2 WBC 7.8 K/uL [...] With Differential Ord2 RDW 14.7 % 03/26/2015 Vitamin D 25 Oh Vjf9415 VITAMIN D, 25 HYDROXY 51.09 ng/mL 12/25/2014 Tsh Ord6 hTSH II 0.09 uIU/mL 12/23/2014 Free T4 Foa996 FREE T4 1.30 ng/dL 12/23/2014 Comp Metabolic Esx296 NA 135 mEq/L 12/23/2014 Comp Metabolic Oic807 K 4.7 mEq/L 12/23/2014 Comp Metabolic Wdb806 CL 100 mEq/L 12/23/2014 Comp Metabolic Jnx358 CO2 23.0 mEq/L 12/23/2014 Comp Metabolic Zpg522 ANION GAP 17 12/23/2014 Comp Metabolic Kvy489 GLUCOSE 93 mg/dL 12/23/2014 Comp Metabolic Wpl078 Creat 1.1 mg/dL 12/23/2014 Comp Metabolic Upg730 eGFR 53 ml/min/1.73m2 12/23/2014 Comp Metabolic Qak413 BUN 26 mg/dL 12/23/2014 Comp Metabolic Zgv406 B/C Ratio 24.3 Ratio 12/23/2014 Comp Metabolic Zfl506 CALCIUM 9.5 mg/dL 12/23/2014 Comp Metabolic Opa591 ALK PHOS 27 U/L 12/23/2014 Comp Metabolic Izt359 AST(SGOT) 16 U/L 12/23/2014 Comp Metabolic Dsj316 ALT(SGPT) 8 U/L 12/23/2014 Comp Metabolic Dnv777 BILI T 0.4 mg/dL 12/23/2014 Comp Metabolic Qbx793 ALBUMIN 3.9 g/dL 12/23/2014 Comp Metabolic Uqt516 TPRO 6.7 g/dL 12/23/2014 Comp Metabolic Jbp304 GLOB 2.8 g/dL 12/23/2014 Comp Metabolic Exc167 A/G Ratio 1.4 Ratio 12/23/2014 Comp Metabolic Whs323 Osmo 275 mOsmo 12/23/2014 Review of Systems [...] lips 01/26/2017 None Full Exam - General 1995 Ears/Nose/Throat lips/teeth/gingiva Overall: normal dentition 01/26/2017 None [...] inspection of skin Consistency: thick 03/31/2015 left advent and left nasal bridge - actinic keratosis [...] SUBSEQ VISIT CPT- 4: G0439 05/05/2018 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-[address]: 165337509 CPT-4: G0436 04/11/2017 PNEUMOCOCCAL VACC [address]: 69201629 CPT-4: 01939 02/09/2017 FLU VACC PRSV FREE INC ANTIG CPT-4: 84338 02/09/2017 ADMIN INFLUENZA VIRUS VAC CPT-4: G0008 02/09/2017 ADMIN PNEUMOCOCCAL VACCINE SNOMED CT: 36818959 CPT-4: G0009 02/09/2017 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-[address]: 583624405 CPT-4: G0436 02/07/2017 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-[address]: 320325631 CPT-4: G0436 10/19/2016 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-[address]: 572480523 CPT-4: G0436 08/31/2016 TRIAMCINOLONE ACET INJ NOS CPT-4: J3301 08/12/2016 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-[address]: 532001868 CPT-4: G0436 07/28/2016 ADMIN INFLUENZA VIRUS VAC CPT-4: G0008 01/28/2016 FLU VACC 4 JULISA 3 YRS PLUS IM SNOMED CT: 16363277 CPT-4: 98121 01/28/2016 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-[address]: 228889002 CPT-4: G0436 07/29/2015 Vital Signs Date Vital 05/05/2018 Blood Pressure 1: 130/64 Code: 8480-6 BMI: 25.1 Code: 38784-8 Heart Rate 1: 72 bpm Height: 5'4" SpO2: 97% Weight: 146 lbs 04/03/2018 Blood Pressure 1: 142/80 Code: 8480-6 BMI: 25.2 Code: 53637-9 Heart Rate 1: 99 bpm Height: 5'4" SpO2: 97% Weight: 147 lbs 03/06/2018 Blood Pressure 1: 140/80 Code: 8480-6 BMI: 26.1 Code: 16303-0 Heart Rate 1: 71 bpm Height: 5'4" SpO2: 98% Weight: 152 lbs 02/22/2018 Blood Pressure 1: 146/68 Code: 8480-6 BMI: 26.6 Code: 53716-9 Heart Rate 1: 88 bpm Height: 5'4" SpO2: 97% Weight: 155 lbs 12/13/2017 Blood Pressure 1: 132/68 Code: 8480-6 BMI: 26.6 Code: 75136-8 Heart Rate 1: 72 bpm Height: 5'4" SpO2: 94% Weight: 154 lbs 14 oz 11/29/2017 Blood Pressure 1: 130/64 Code: 8480-6 BMI: 26.1 Code: 91921-7 Heart Rate 1: 81 bpm Height: 5'4" SpO2: 94% Weight: 152 lbs 10/27/2017 Blood Pressure 1: 120/62 Code: 8480-6 BMI: 25.9 Code: 47694-4 Heart Rate 1: 70 bpm Height: 5'4" SpO2: 96% Weight: 151 lbs 07/26/2017 Blood Pressure 1: 146/70 Code: 8480-6 BMI: 26.3 Code: 81541-3 Heart Rate 1: 69 bpm Height: 5'4" SpO2: 98% Weight: 153 lbs 05/26/2017 Blood Pressure 1: 142/76 Code: 8480-6 BMI: 26.4 Code: 71477-0 Heart Rate 1: 59 bpm Height: 5'4" SpO2: 99% Weight: 154 lbs 04/11/2017 Blood Pressure 1: 134/64 Code: 8480-6 BMI: 26.6 Code: 47316-0 Heart Rate 1: 65 bpm Height: 5'4" SpO2: 98% Weight: 155 lbs 02/07/2017 Blood Pressure 1: 120/72 Code: 8480-6 Heart Rate 1: 72 bpm Height: 5'4" SpO2: 96% Weight: 01/26/2017 Blood Pressure 1: 146/68 Code: 8480-6 BMI: 26.4 Code: 55596-6 Heart Rate 1: 96 bpm Height: 5'4" SpO2: 97% Weight: 154 lbs 10/19/2016 Blood Pressure 1: 144/76 Code: 8480-6 BMI: 25.8 Code: 41813-5 Heart Rate 1: 68 bpm Height: 5'4" SpO2: 96% Weight: 150 lbs 8 oz 09/22/2016 Blood Pressure 1: 122/80 Code: 8480-6 BMI: 26.1 Code: 26154-9 Heart Rate 1: 111 bpm Height: 5'4" SpO2: 97% Weight: 152 lbs 08/31/2016 Blood Pressure 1: 152/82 Code: 8480-6 BMI: 27.1 Code: 50277-6 Heart Rate 1: 118 bpm Height: 5'4" SpO2: 96% Weight: 158 lbs 08/12/2016 Blood Pressure 1: 146/78 Code: 8480-6 BMI: 26.9 Code: 51569-7 Heart Rate 1: 68 bpm Height: 5'4" SpO2: 97% Weight: 157 lbs 07/28/2016 Blood Pressure 1: 128/64 Code: 8480-6 BMI: 27.1 Code: 66355-7 Heart Rate 1: 63 bpm Height: 5'4" SpO2: 97% Weight: 158 lbs 01/28/2016 Blood Pressure 1: 130/70 Code: 8480-6 BMI: 27.3 Code: 55684-6 Heart Rate 1: 60 bpm Height: 5'4" SpO2: 95% Weight: 159 lbs 07/29/2015 Blood Pressure 1: 136/80 Code: 8480-6 BMI: 28.1 Code: 63746-9 Heart Rate 1: 68 bpm Height: 5'4" SpO2: 96% Weight: 163 lbs 8 oz 03/31/2015 Blood Pressure 1: 138/88 Code: 8480-6 BMI: 27.5 Code: 48101-3 Heart Rate 1: 72 bpm Height: 5'4" Weight: 160 lbs 12/23/2014 Blood Pressure 1: 138/68 Code: 8480-6 BMI: 27.1 Code: 88750-1 Heart Rate 1: 63 bpm Height: 5'4" [...] data Encounters Encounter Performer Location Codes Date ([id number]) 24438 EST. PATIENT, LEVEL IV Diagnosis: Essential (primary) hypertension[ICD10: I10] Diagnosis: Nonrheumatic aortic (valve) stenosis[ICD10: I35.0] Diagnosis: Atrophy of thyroid (acquired)[ICD10: E03.4] Diagnosis: Chronic atrial fibrillation[ICD10: I48.2] Kandi Cabrera MD, [facility] CPT-4: 22521 04/03/2018 ([id number]) 15905 EST. PATIENT, LEVEL IV Diagnosis: Essential (primary) hypertension[ICD10: I10] Diagnosis: Chronic atrial fibrillation[ICD10: I48.2] Diagnosis: Nonrheumatic aortic (valve) stenosis[ICD10: I35.0] Diagnosis: Age-related osteoporosis without current pathological fracture[ICD10: M81.0] Kandi Cabrera MD, [facility] CPT-4: 63158 03/06/2018 17946 EST. PATIENT, LEVEL III Diagnosis: Low back pain[ICD10: M54.5] Diagnosis: Dysuria[ICD10: R30.0] Diagnosis: Gastro-esophageal reflux disease without esophagitis[ICD10: K21.9] Payton Cabrera MD, [facility] CPT-4: 41500 02/22/2018 ([id number]) 80501 EST. PATIENT, LEVEL III Diagnosis: Atrophy of thyroid (acquired)[ICD10: E03.4] Diagnosis: Other iron deficiency anemias[ICD10: D50.8] Diagnosis: Epigastric pain[ICD10: R10.13] Kandi Cabrera MD [facility] CPT-4: 06453 12/13/2017 ([id number]) 65538 EST. PATIENT, LEVEL IV Diagnosis: Diverticulitis of large intestine without perforation or abscess without bleeding[ICD10: K57.32] Kandi Cabrera MD, [facility] CPT-4: 66758 11/29/2017 ([id number]) 67731 EST. PATIENT, LEVEL IV Diagnosis: Atrophy of thyroid (acquired)[ICD10: E03.4] Diagnosis: Other iron deficiency anemias[ICD10: D50.8] Diagnosis: Epigastric pain[ICD10: R10.13] Diagnosis: Right lower quadrant pain[ICD10: R10.31] Diagnosis: Left lower quadrant pain[ICD10: R10.32] Kandi Cabrera MD [facility] CPT-4: 30702 10/27/2017 06767 EST. PATIENT, LEVEL IV Diagnosis: Atrophy of thyroid (acquired)[ICD10: E03.4] Diagnosis: Other iron deficiency anemias[ICD10: D50.8] Diagnosis: Essential (primary) hypertension[ICD10: I10] Diagnosis: Gastro-esophageal reflux disease without esophagitis[ICD10: K21.9] Payton Cabrera MD, [facility] CPT-4: 18881 07/26/2017 ([id number]) 93365 EST. PATIENT, LEVEL IV Diagnosis: Other iron deficiency anemias[ICD10: D50.8] Diagnosis: Atrophy of thyroid (acquired)[ICD10: E03.4] Diagnosis: Tobacco use[ICD10: Z72.0] Diagnosis: Essential (primary) hypertension[ICD10: I10] Diagnosis: Low back pain[ICD10: M54.5] Kandi Cabrera MD [facility] CPT-4: 96996 05/26/2017 ([id number]) 59118 EST. PATIENT, LEVEL IV Diagnosis: Shortness of breath[ICD10: R06.02] Diagnosis: Tobacco use[ICD10: Z72.0] Diagnosis: Chronic atrial fibrillation[ICD10: I48.2] Kandi Cabrera MD [facility] CPT-4: 73451 04/11/2017 ([id number]) 05301 EST. PATIENT, LEVEL III Diagnosis: Unsteadiness on feet[ICD10: R26.81] Diagnosis: Tobacco use[ICD10: Z72.0] Kandi Cabrera MD [facility] CPT-4: 82337 02/07/2017 ([id number]) 66730 EST. PATIENT, LEVEL IV Diagnosis: Cough[ICD10: R05] Diagnosis: Essential (primary) hypertension[ICD10: I10] Diagnosis: Chronic atrial fibrillation[ICD10: I48.2] Diagnosis: Unsteadiness on feet[ICD10: R26.81] Kandi Cabrera MD [facility] CPT- 4: 87470 01/26/2017 ([id number]) 30123 EST. PATIENT, LEVEL IV Diagnosis: Essential (primary) hypertension[ICD10: I10] Diagnosis: Atrophy of thyroid (acquired)[ICD10: E03.4] Diagnosis: Tobacco use[ICD10: Z72.0] Diagnosis: Chronic atrial fibrillation[ICD10: I48.2] Diagnosis: Mixed hyperlipidemia[ICD10: E78.2] Kandi Cabrera MD [facility] CPT- 4: 61837 10/19/2016 [id number]) 99857 EST. PATIENT, LEVEL IV Diagnosis: Atrophy of thyroid (acquired)[ICD10: E03.4] Diagnosis: Mixed hyperlipidemia[ICD10: E78.2] Diagnosis: Essential (primary) hypertension[ICD10: I10] Kandi Cabrera MD [facility] CPT-4: 10049 09/22/2016 ([id number]) 93857 EST. PATIENT, LEVEL IV Diagnosis: Essential (primary) hypertension[ICD10: I10] Diagnosis: Atrophy of thyroid (acquired)[ICD10: E03.4] Diagnosis: Chronic atrial fibrillation[ICD10: I48.2] Kandi Cabrera MD, [facility] CPT-4: 54492 08/31/2016 ([id number]) 32968 EST. PATIENT, LEVEL III Diagnosis: Low back pain[ICD10: M54.5] Diagnosis: Sacroiliitis, not elsewhere classified[ICD10: M46.1] Janeen Cabrera MD, [facility] CPT-4: 95144 08/12/2016 ([id number]) 62026 EST. PATIENT, LEVEL IV Diagnosis: Mixed hyperlipidemia[ICD10: E78.2] Diagnosis: Essential (primary) hypertension[ICD10: I10] Diagnosis: Atrophy of thyroid (acquired)[ICD10: E03.4] Kandi Cabrera MD, [facility] CPT-4: 85332 07/28/2016 ([id number]) 72476 EST. PATIENT, LEVEL IV Diagnosis: Hypothyroidism, unspecified[ICD10: E03.9] Diagnosis: Essential (primary) hypertension[ICD10: I10] Diagnosis: Mixed hyperlipidemia[ICD10: E78.2] Diagnosis: Cellulitis of left lower limb[ICD10: L03.116] Diagnosis: Encounter for immunization[ICD10: Z23] Kandi Cabrera MD, [facility] CPT-4: 95713 01/28/2016 ([id number]) 77587 EST. PATIENT, LEVEL IV Diagnosis: Essential (primary) hypertension[ICD10: I10] Diagnosis: Hypothyroidism, unspecified[ICD10: E03.9] Diagnosis: Diarrhea, unspecified[ICD10: R19.7] Diagnosis: Tobacco use[ICD10: Z72.0] Diagnosis: Tobacco abuse counseling[ICD10: Z71.6] Diagnosis: Other obesity due to excess calories[ICD10: E66.09] Kandi Cabrera MD, [facility] CPT-4: 83628 07/29/2015 ([id number]) 46905 EST. PATIENT, LEVEL IV Diagnosis: Essential (primary) hypertension[ICD10: I10] Diagnosis: Hypothyroidism, unspecified[ICD10: E03.9] Diagnosis: Actinic keratosis[ICD10: L57.0] [facility] CPT-4: 68929 03/31/2015 ([id number]) OFFICE VISIT, NEW - LEVEL 4 Diagnosis: ESSENTIAL HYPERTENSION[ICD9: 401.9] Diagnosis: HYPOTHYROIDISM[ICD9: 244.9] Diagnosis: HYPERLIPIDEMIA[ICD9: 272.4] Diagnosis: Osteoporosis[ICD9: 733.00] Diagnosis: OSTEOARTH NOS-UNSPEC[ICD9: 715.90] Diagnosis: Sacroiliitis[ICD9: 720.2] [facility] CPT-4: 21516 12/23/2014 Plan of Care Planned Activity Notes [...] Addiction Completed 05/05/2018 Appointment: Kandi Cabrera WPtel: [address] [place], [place] [address] (15 min) Moderate 04/11/2018 Visit Plan: Hypertension [...] improving. 04/03/2018 Appointment: Kandi Cabrera WPtel: [phone] [facility] (15 min) Moderate 04/03/2018 Patient Education: [...] a conversation about surgical intervention with her Matlab Developer. 03/06/2018 Appointment: Kandi Cabrera WPtel: [facility] (15 min) Moderate 03/06/2018 Patient Education: [...] improving. 02/22/2018 Appointment: Payton Leon WPtel: [phone] [facility] (15 min) Moderate 02/22/2018 Patient Education: Patient Medication Summary Completed 02/22/2018 Patient Education: Back Pain Completed 02/22/2018 Visit Plan: Diarrhea - improved - pt advised to avoid seeds, nuts, popcorn, or any other food which has been proven to upset the pt's stomach. 12/13/2017 Appointment: Kandi Cabrera WPtel: [phone] [facility] (15 min) Moderate 12/13/2017 Patient Education: Patient Medication Summary Completed 12/13/2017 Visit Plan: Diverticulitis - rx for antibiotic sent to pt's pharmacy - pt advised to avoid seeds, nuts, popcorn, or any other food which has been proven to upset the pt's stomach. 11/29/2017 Appointment: Kandi Cabrera WPtel: [phone] [facility] [place] (15 min) Moderate 11/29/2017 Patient Education: Patient Medication Summary Completed 11/29/2017 Appointment: Kandi Cabrera WPtel: [facility] [place] (15 min) Moderate 11/24/2017 Visit [...] 10 days 10/27/2017 Appointment: Kandi Cabrera WPtel: [phone] [facility] [place] (15 min) Moderate 10/27/2017 Patient [...] improving. 07/26/2017 [phone] (30 min) [facility] 07/26/2017 Patient Education: Patient Medication Summary Completed 07/26/2017 Care Plan: Iron Pending 07/26/2017 Care Plan: Referral Order SNOMED-CT : 070050817 Pending 07/26/2017 Visit Plan: Hypertension - well [...] recommended. 05/26/2017 [facility]ment: [phone] (15 min) Moderate 05/26/2017 Patient Education: Patient Medication Summary Completed 05/26/2017 Patient Education: Patient Medication Summary Completed 05/19/2017 Care Plan: Iron Pending 05/19/2017 Visit Plan: Dyspnea on Exertion - uncontrolled - I have recommended pt to have Pulmonary function studies as well as a referral back to her Matlab Developer - Dr. Hanna - I suspect she [...] cigarettes". 04/11/2017 App[facility]ment: [phone] (15 min) Moderate 04/11/2017 Patient Education: Patient Medication Summary Completed 04/11/2017 Patient Education: Smoking and Tobacco Addiction Completed 04/11/2017 Care Plan: Referral Order SNOMED-CT : [id number] Pending 04/11/2017 Appointment: [phone] (15 min) Moderate 02/14/2017 Appointment: Injection 02/09/2017 [phone] Patient informed. Completed 02/09/2017 Patient Education: Patient Medication Summary Completed 02/09/2017 Patient Education: Smoking and Tobacco Addiction Completed 02/09/2017 Visit Plan: Tobacco abuse - chronic condition for this patient. Patient has been counseled about need to stop smoking due to the negative health affects. 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 Rx for wellbutrin 75mg 1/2 pill bid. Gait instability - referral to [facility] for gait instability 02/07/2017 Appointment: Kandi Cabrera WPtel: [facility] (15 min) Moderate 02/07/2017 Patient Education: Patient Medication Summary Completed 02/07/2017 Patient Education: Smoking and Tobacco Addiction Completed 02/07/2017 Care Plan: Referral Order SNOMED-CT : 119161413 Pending 02/07/2017 Visit Plan: Cough - pt [...] becoming uncontrolled. 01/26/2017 Appointment: Kandi Cabrera WPtel: [facility] (15 min) Moderate 01/26/2017 Patient Education: [...] per week. 10/19/2016 Appointment: [phone] [facility] (15 min) Moderate 10/19/2016 Patient Education: Patient Medication Summary Completed 10/19/2016 Patient Education: Smoking and Tobacco Addiction Completed 10/19/2016 Patient Education: Hypertension Completed 10/19/2016 Visit Plan: Atrial Fibrillation - pt on chronic anticoagulation and is not optimally rate controlled. Pt is to see her filler room attendant tomorrow, will discuss with him her plans [...] of control. 09/22/2016 Appointment: [phone] [facility] (15 min) Moderate 09/22/2016 Patient Education: [...] q 3 months or q 6 m [facility] based on previous levels of control. 08/31/2016 Appointment: Kandi Cabrera WPtel: [phone] [facility] (15 min) Moderate 08/31/2016 Patient Education: Patient Medication Summary Completed 08/31/2016 Patient Education: Smoking and Tobacco Addiction Completed 08/31/2016 Patient Education: Hypertension Completed 08/31/2016 Visit Plan: Sacroiliitis -kenalog injection today in the office- tylenol as directed-heat as directed-xray lumbar spine. Pt is to call if the symptoms do not improve or if they worsen. 08/12/2016 Appointment: Janeen Marsh WPtel: [phone] [phone] (30 min) Complex 08/12/2016 Patient Education: Patient Medication Summary Completed 08/12/2016 Patient Education: Smoking and Tobacco Addiction Completed 08/12/2016 Appointment: Payton Leon WPtel: [phone] [facility] [facility] - Annual Wellness Visit 07/30/2016 [...] medications. 07/28/2016 Appointment: Kandi Cab[facility]el[phone] [facility] [place] (15 min) Moderate 07/28/2016 Patient [...] today 01/28/2016 Appointment: [phone] [place] (15 min) Moderate 01/28/2016 Patient [...] activity 07/29/2015 Appointment: Kandi Cabrera WPtel: [phone] [facility] [place] (15 min) Moderate 07/29/2015 Patient [...] of control. A ctinic keratosis - left advent and left nasal bridge - pt to use efudex on the lesions on the nose and face. 03/31/2015 Appointment: Kandi Cabrera WPtel: [address] [place] [address] (15 min) Moderate 03/31/2015 Patient Education: Patient [...] D levels. 12/23/2014 Appointment: Kandi Cabrera WPtel: [address] [place] [address] [place] ([place]) New Patient 12/23/2014 Patient Education: Patient Medication Summary Completed 12/23/2014 Patient Education: Hypertension Completed 12/23/2014 Care Plan: Referral Order SNOMED-CT : [id number] Ordered 12/23/2014 Referral: External, Ordering Provider Referral Completed Referral: External, Ordering Provider Referral Appointment Requested Referral: Maggi Reaves Referral Initiated Referral: [facility] WPtel: [address] [place] [address] Referral Appointment Requested Referral: External, Ordering Provider Dr. Hanna's office has already contacted her about an appt scheduled for April 25 at 9:00 AM. Completed Instructions Comment . Hypothyroidism - pt with chronic hypothyroidism, [...] levels of control. Actinic keratosis - left advent and left nasal bridge - pt to [...] daily, call if not improving. PROBIOTIC - [employer]chanted [employer], Mobilligy, lactobacilus/acidophilis brand probiotic - these can be [...] cessation Overweight - need to increase activity start on the synthroid 137mcg daily - [...] a conversation about surgical intervention with her Matlab Developer. . Diverticulitis - rx for antibiotic sent to pt's pharmacy - pt advised to avoid seeds, nuts, popcorn, or any other food which has been proven to upset the pt's stomach. . Atrial Fibrillation - pt on chronic anticoagulation and is not optimally rate controlled. Pt is to see her filler room attendant tomorrow, will discuss with him her plans [...] rx for keflex sent to pharmacy [facility] today . Hypertension - well controlled - [...] rx for keflex sent to pharmacy flu [facility] today . Tobacco abuse - chronic condition [...] well as a referral back to her Matlab Developer - Dr. Hanna - I suspect she [...] their heart rate is becoming uncontrolled. . Atrial Fibrillation - pt on chronic [...] months based on previous levels of control. xray lumbar spine tylenol 2 tabs three times daily lumbar support pillow call tuesday if not better . Sacroiliitis -kenalog injection today in the office-tylenol as directed-heat as directed-xray lumbar spine. Pt is to call if the symptoms do not improve or if they worsen. zantac 150mg take twice daily x 2 [...] control. Back pain - stretching exercises recommended. Will culture your urine to make sure [...]
--- OUTSIDE RECORDS SUMMARY | 2018-12-29 14:24 | XMS REPORT | Continuity of Care Document ---
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 CLS Preadmit MONALISA MORRISON MD [facility] RAD DIVERTICULITIS [id number] 11/28/2017 07:30:00 11/28/2017 12:48:00 DIS Outpatient MONALISA MORRISON MD [facility] ENDO DIARRHEA [id number] 11/16/2017 16:44:00 11/23/2017 00:01:00 DIS Outpatient LUKE TANG MD [facility]3 WELLNESS [id number] 11/21/2017 05:42:00 11/21/2017 15:12:00 DIS Outpatient MONALISA MORRISON MD [facility] PREOP COLONOSCOPY [id number] 10/21/2017 15:10:00 10/23/2017 00:01:00 DIS Outpatient LUKE TANG MD [facility]3 WELLNESS [id number] 09/21/2017 15:19:00 09/21/2017 00:01:00 DIS Outpatient LUKE TANG MD [facility]3 WELLNESS [id number] 08/31/2017 03:16:00 08/31/2017 23:59:59 CLS Preadmit LUKE TANG MD [facility] IRON DEFICIENCY ANEMIA [id number] 06/13/2017 12:48:00 08/30/2017 00:01:00 DIS Outpatient LUKE TANG MD [facility] IRON DEFICIENCY ANEMIA [id number] 04/20/2017 13:59:00 04/20/2017 23:59:59 CLS Outpatient LUKE TANG MD [facility] RT HX OF TOBACCO USE [id number] 02/02/2017 10:16:00 02/02/2017 23:59:59 CLS Outpatient JAMES FLEMING APRN [facility] RAD GAIT IMBALANCE [id number] 01/26/2017 13:09:00 01/26/2017 23:59:59 CLS Outpatient LUKE TANG MD [facility] RAD COUGH [id number] 08/23/2016 01:55:00 08/25/2016 18:40:00 DIS Inpatient LUKE TANG MD [facility] ICU A-FIB W/RVR, CHEST PAIN [id number] 08/15/2016 15:42:00 08/16/2016 15:30:00 DIS Inpatient LUKE TANG MD [facility] 4TH WEAKNESS,HYPONATREMIA,UTI [id number] 08/12/2016 14:23:00 08/12/2016 23:59:59 CLS Outpatient FROYLAN OSORIO [facility] RAD LOW BACK PAIN [id number] 07/19/2013 15:25:00 07/19/2013 23:59:59 CLS Outpatient JEREMIAH MOTTA MD [facility] RAD SCREENING [id number] 12/29/2018 11:08:00 Document Registration [id number] 12/27/2018 10:49:00 ACT Outpatient DEANDRE DENNIS MD [facility] CR TAVR 11/07/18 [id number] 07/25/2014 11:10:00 Document Registration [id number] 06/12/2012 10:20:00 Document Registration [id number] 12/27/2011 13:28:00 Document Registration [id number] 12/13/2011 09:03:00 Document Registration [id number] 12/08/2011 13:33:00 Document Registration [id number] 11/22/2011 15:26:00 Document Registration [id number] 04/14/2011 16:49:00 Document Registration
--- NOTE | 2018-12-29 14:45 | NUR ---
other family here. did view body. Requests body be transported to [facility]
--- NOTE | 2018-12-29 17:07 | NUR ---
Meghana here for patient. Patient transported with wedding set on
[2018-12-29 17:09] VITALS: BP 0/0
[2019-01-01] MEDS ORDERED: SCOPOLAMINE PATCH REMOVAL TP SCH (13:44)
== END 2018-12-29 17:08 | disposition expired ==
LOC: EDUNIT# 10:45 → ER 10:46 → UNDOADMOB 13:03 → 4TH 13:03 → ER 17:08
DX: S06.9X0A Unspecified intracranial injury without loss of consciousness, initial encounter (principal); I10 Essential (primary) hypertension; E78.00 Pure hypercholesterolemia, unspecified; I25.2 Old myocardial infarction; I48.91 Unspecified atrial fibrillation; K21.9 Gastro-esophageal reflux disease without esophagitis; E03.9 Hypothyroidism, unspecified; Z87.440 Personal history of urinary (tract) infections; Z87.19 Personal history of other diseases of the digestive system; Z88.1 Allergy status to other antibiotic agents; Z88.2 Allergy status to sulfonamides; Z79.51 Long term (current) use of inhaled steroids; Z95.0 Presence of cardiac pacemaker; Z90.710 Acquired absence of both cervix and uterus; Z95.5 Presence of coronary angioplasty implant and graft; Z95.2 Presence of prosthetic heart valve; Z82.49 Family history of ischemic heart disease and other diseases of the circulatory system; W19.XXXA Unspecified fall, initial encounter; Y92.002 Bathroom of unspecified non-institutional (private) residence as the place of occurrence of the external cause; Y93.E1 Activity, personal bathing and showering
CPT/HCPCS: 36415; 51702; 70450; 71045; 80053; 81000; 84484; 85025; 85379; 85610; 85730; 93005; 93041; 94640